=== PATIENT | female | born 1945 | race Caucasian/White ===

== ENCOUNTER 2018-01-17 19:18 | Inpatient (IN) | payer OTHER ==
[~2018-01-17] VITALS: Ht 152.4 cm; Wt 49.1 kg
[~2018-01-17 19:18] MED LIST: ATRIN INH; BECL0.3A INH; BRVIN NEB; CALC-342 PO; CLON0.5T3 PO; CRS20 PO; CYAN500T13 PO; DILT90CA PO; DOCU100C31 PO; DOXY100C2 PO; FERR325T5 PO; FSM70 PO; FURO-85 PO; ISOS30TA35 PO; LCTX PO; LRS10 PO; MGCS/ PO; NRN600 PO; NSNN50 NAE; ONDA4TAB46 PO; OXGN; PLMINSR25 NEB; PLV75 PO; POLY335025 PO; POTA10CA28 PO; PRED10TA PO; RANI300T PO; SUCR1TAB29 PO; ULT/50 PO
[2018-01-17] MEDS ORDERED: ALBUT/IPRATROP 3MG/0.5MG NEB 3 ML VIAL ONE (19:21)
[2018-01-17] MEDS ORDERED: ONDANSETRON INJ 2 MG/ML 2 ML VIAL ONE (19:22)
[2018-01-17] MEDS ORDERED: METHYLPREDNISOLONE 125 MG VIAL IV STA (19:27)
[2018-01-17] MEDS ORDERED: ALBUT/IPRATROP 3MG/0.5MG NEB 3 ML VIAL INH ONE ×2 (19:30→20:30)
--- NOTE | 2018-01-17 19:30 | EMERGENCY ROOM VISIT NOTE ---
History Report prepared by Julieta: Rashel Rodriges Under the Supervision of: Dr. Lokesh Whiting M.D. First contact with patient: 19:23 Chief Complaint: SHORTNESS OF BREATH Stated Complaint: SOB, COUGH History of Present Illness The patient is a 72 year old female who presents to the Emergency Room with complaints of worsening SOB and coughing that began 1 week ago. She complains of chest tightness. Per EMS she was given 1 DuoNeb with mild improvement and 4 Zofran because she was coughing so hard she started vomiting. She had a rescue pack of Doxycycline and Prednisone for her upper respiratory infection that began 1 week ago. This episode is similar to her previous COPD exacerbations. She denies abdominal pain. Source of History: patient, EMS, nursing staff Onset: 1 week ago Position: other (lungs) Symptom Intensity: pain rated as 0/10 Quality: other (SOB) Timing: worsening Modifying Factors (Relieving): other (minimal improvment with Duoneb and 4 Zofran) Associated Symptoms: + cough, + chest pain (tightness), + SOB, + nausea, No abdominal pain Review of Systems See HPI for pertinent positives & negatives. A total of 10 systems reviewed and were otherwise negative. Past Medical & Surgical Medical Problems: (1) Anxiety (2) Asymptomatic bilateral carotid artery stenosis (3) CAD (coronary artery disease) (4) COPD (chronic obstructive pulmonary disease) (5) GERD (gastroesophageal reflux disease) (6) History of Clostridium difficile (7) History of esophageal stricture (8) HTN (hypertension) (9) Hyperlipidemia (10) Osteoporosis (11) Peripheral vascular disease (12) Trigger finger Surgical Problems: (1) H/O colonoscopy (2) History of appendectomy (3) History of hemorrhoidectomy (4) History of hysterectomy with oophorectomy (5) History of knee surgery (6) History of left heart catheterization (7) Hx of esophagogastroduodenoscopy (8) S/p bilateral carotid endarterectomy (9) Status post dilatation of esophageal stricture (10) Status post insertion of iliac artery stent Family History Heart disease Social History Smoking Status: Current Every Day Smoker Alcohol Use: occasionally Drug Use: none Marital Status: single Housing Status: unknown Occupation Status: retired Current/Historical Medications Scheduled Alendronate Sodium (Alendronate Sodium), 70 MG PO WEDNESDAY Arformoterol Tartrate (Brovana 15MCG/2ML Soln), 2 ML NEB BID Beclomethasone Dipropionate (Qvar), 2 PUFFS INH BID Budesonide (Pulmicort Respules 0.25MG/2ML), 2 ML NEB BID Calcium Carbonate-Vitamin D (Calcium 600+D), 1 TAB PO BID Clopidogrel Bisulfate (Clopidogrel), 75 MG PO QAM Cyanocobalamin (Vitamin B12 500MCG), 500 MCG PO QPM Diltiazem Hcl (Diltiazem Hcl Er), 90 MG PO QAM Ferrous Sulfate (Ferrous Sulfate), 325 MG PO BID Gabapentin (Gabapentin), 600 MG PO TID Home O2 Therapy (Oxygen), 3 LITERS NA CONTINOUS Isosorbide Mononitrate Ext Rel (Imdur Ext Rel), 30 MG PO QAM Lactobacillus Acidophilus (Lactinex), 1 TAB PO BID Maalox/Diphen/Visc. [place]/Glyc (Magic Swizzle), 5 ML PO QID Mometasone Furoate (Nasal) (Nasonex), 2 SPRAYS MALATHI QAM Ranitidine Hcl (Zantac), 300 MG PO BID Rosuvastatin Calcium (Crestor), 20 MG PO QPM Sucralfate (Carafate), 1 GM PO HS Scheduled PRN Baclofen (Baclofen), 10 MG PO HS PRN for Muscle Pain Clonazepam (Klonopin), 0.5 MG PO BID PRN for Anxiety Docusate Sodium (Docusate Sodium), 100 MG PO BID PRN for Constipation Doxycycline Hyclate (Vibramycin), 100 MG PO BID PRN for COPD Rescue Kit Furosemide (Lasix), 20 MG PO 2XWK PRN for FLUID ACCUMULATION Ipratropium [place] (Atrovent Hfa), 2 PUFFS INH Q4H PRN for Wheezing Ondansetron Hcl (Zofran), 4 MG PO Q6 PRN for Nausea Polyethylene Glycol 3350 (Miralax), 17 GM PO DAILY PRN for Constipation Potassium Chloride (Micro-K Ext Rel), 10 MEQ PO 2XWK PRN for FLUID ACCUMULATION WITH LASIX Prednisone Tab (Prednisone), 40 MG PO UD PRN for COPD Rescue Pack Tramadol Hcl (Ultram), 50 MG PO Q6H PRN for Pain Allergies Coded Allergies: Corticosteroids (Verified Allergy, Unknown, swelling, 6/13/16) Cortisone (Verified Allergy, Unknown, swelling, 04/06/16) Metoclopramide (Verified Allergy, Unknown, UNKNOWN, 04/06/16) Salicylates (Verified Adverse Reaction, Unknown, caused bleeding, can take EC aspirin, 04/06/16) Physical Exam Vital Signs Date Time Temp Pulse Resp B/P (MAP) Pulse Ox O2 Delivery O2 Flow Rate FiO2 01/17/18 21:02 139/60 01/17/18 21:00 107 23 100 Nebulizer 01/17/18 20:33 157/78 01/17/18 20:31 91 01/17/18 20:30 92 22 99 Nebulizer 01/17/18 20:28 89 22 99 Nasal Cannula 5.0 01/17/18 20:03 137/103 01/17/18 19:51 97 26 95 Nasal Cannula 4.0 01/17/18 19:48 94 19 98 Nasal Cannula 4.0 01/17/18 19:31 131/97 01/17/18 19:28 166/91 01/17/18 19:19 98 Nasal Cannula 4.0 01/17/18 19:19 36.5 105 24 166/91 98 Nasal Cannula 4.0 01/17/18 19:19 98 Nasal Cannula 4.0 Physical Exam GENERAL: Patient is acutely ill appearing and in moderate distress. EYES: No scleral icterus, unremarkable pupils. ENT: Dry mucous membranes, no nasal congestion. NECK: No masses appreciated, no meningismus, trachea is midline. RESPIRATORY: Dyspneic, and tachypneic. Diffuse wheezing and crackles with left side worse than right. Clear to auscultation and equal bilaterally. No rhonchi. CARDIOVASCULAR: Regular rate and rhythm. No murmurs, rubs, gallops appreciated. GASTROINTESTINAL: Abdomen soft, nontender, no peritonitis. Bowel sounds positive. No masses appreciated. BACK: No midline tenderness, no CVA tenderness EXTREMITIES: Normal motion all extremities, no cyanosis, no edema. NEUROLOGIC: Alert and oriented, no acute motor or sensory deficits, no focal weakness, cranial nerves grossly intact. SKIN: Poor skin turgor. No rash, no jaundice, no diaphoresis. Medical Decision & Procedures ER Provider Diagnostic Interpretation: Radiology results and stated below per my review and radiologist interpretation: CHEST ONE VIEW PORTABLE CLINICAL HISTORY: Shortness of breath COMPARISON STUDY: 05/04/2015 FINDINGS: Underlying pulmonary emphysema is suspected. The heart is normal in size. There is an old right-sided rib fracture. As a calcified right upper lung zone granuloma. There is no failure. There is no focal pulmonary consolidation. There is minor basilar interstitial thickening.[ IMPRESSION: Emphysema. No evidence of focal pulmonary consolidation Electronically signed by: Christ Spencer M.D. 01/17/2018 7:53 PM Dictated Date/Time: 01/17/2018 7:52 PM Laboratory Results 01/17/18 19:35 Red Blood Count 4.09, Mean Corpuscular Volume 93.6, Mean Corpuscular Hemoglobin 31.3, Mean Corpuscular Hemoglobin Concent 33.4, Mean Platelet Volume 9.8, Neutrophils (%) (Auto) 81.0, Lymphocytes (%) (Auto) 13.3, Monocytes (%) (Auto) 5.0, Eosinophils (%) (Auto) 0.1, Basophils (%) (Auto) 0.4, Neutrophils # (Auto) 6.92, Lymphocytes # (Auto) 1.14, Monocytes # (Auto) 0.43, Eosinophils # (Auto) 0.01, Basophils # (Auto) 0.03 01/17/18 19:35 Test 01/17/18 19:35 01/17/18 19:45 01/17/18 21:20 White Blood Count 8.55 K/uL (4.8-10.8) Red Blood Count 4.09 M/uL (4.2-5.4) Hemoglobin 12.8 g/dL (12.0-16.0) Hematocrit 38.3 % (37-47) Mean Corpuscular Volume 93.6 fL (80-100) Mean Corpuscular Hemoglobin 31.3 pg (25-34) Mean Corpuscular Hemoglobin Concent 33.4 g/dl (32-36) Platelet Count 339 K/uL (130-400) Mean Platelet Volume 9.8 fL (7.4-10.4) Neutrophils (%) (Auto) 81.0 % Lymphocytes (%) (Auto) 13.3 % Monocytes (%) (Auto) 5.0 % Eosinophils (%) (Auto) 0.1 % Basophils (%) (Auto) 0.4 % Neutrophils # (Auto) 6.92 K/uL (1.4-6.5) Lymphocytes # (Auto) 1.14 K/uL (1.2-3.4) Monocytes # (Auto) 0.43 K/uL (0.11-0.59) Eosinophils # (Auto) 0.01 K/uL (0-0.5) Basophils # (Auto) 0.03 K/uL (0-0.2) RDW Standard Deviation 44.3 fL (36.4-46.3) RDW Coefficient of Variation 13.0 % (11.5-14.5) Immature Granulocyte % (Auto) 0.2 % Immature Granulocyte # (Auto) 0.02 K/uL (0.00-0.02) Anion Gap 12.0 mmol/L (3-11) Est Creatinine Clear Calc Drug Dose 59.0 ml/min Estimated GFR () 104.2 Estimated GFR (Non- 89.9 BUN/Creatinine Ratio 30.1 (10-20) Calcium Level 9.6 mg/dl (8.5-10.1) Magnesium Level 2.2 mg/dl (1.8-2.4) Influenza Type A (RT-PCR) Neg for Influ A (NEG) Influenza Type B (RT-PCR) Neg for Influ B (NEG) Laboratory results as reviewed by me. Medications Administered Medications (Trade) Dose Ordered Sig/Jameel Route Start Time Stop Time Status Last Admin Dose Admin Albuterol/ Ipratropium (Duoneb) 12 ml ONE ONCE INH 01/17/18 19:30 01/17/18 19:31 DC 01/17/18 19:51 12 ML Methylprednisolone Sodium Succinate (Solu-Medrol IV) 80 mg NOW STAT IV 01/17/18 19:27 01/17/18 19:28 DC 01/17/18 19:41 80 MG Lorazepam (Ativan Inj) 0.5 mg NOW STAT IV 01/17/18 19:58 01/17/18 19:59 DC 01/17/18 20:03 0.5 MG Albuterol/ Ipratropium (Duoneb) 12 ml ONE ONCE INH 01/17/18 20:30 01/17/18 20:31 DC 01/17/18 20:28 12 ML Doxycycline Hyclate 100 mg/ Dextrose 110 ml @ 50 mls/hr NOW STAT IV 01/17/18 20:36 3/26/18 22:47 01/17/18 21:10 50 MLS/HR ECG Per My Interpretation Indication: SOB/dyspnea Rate (beats per minute): 98 Rhythm: normal sinus Findings: PAC, prolonged QT (QTc of 508), other (Nonspecific ST abnormality throughout without STEMI) ED Course 1922: The patient was evaluated in room B12B. A complete history and physical exam was performed. 1957: Patient coughed hard and vomited. She stated that she is very anxious. Ativan was ordered. 2036: I checked on the patient and she is no longer anxious or vomiting. Loud diffuse expiratory wheezing is present. 2041: Discussed the patient's case with Dr. Seth Jean. The patient will be evaluated for further treatment and disposition. 2044: Upon reevaluation, the patient is resting comfortably. Discussed results and treatment plan with the patient. She verbalized understanding and agreement with the treatment plan. The patient will be evaluated for further management. Medical Decision Differential: Infectious, Reactive Airway Disease, Pneumonia, Pneumothorax, COPD , CHF, ACS, Pulmonary Embolism, MSK, GI, Dissection, amongst other etiologies entertained. 72 yr old COPD patient arrives in acute respiratory distress coughing so hard periodically vomiting. She is moving minimal air, wheezing and severely dyspneic. She is also acutely anxious and very distressed. With hour neb still quite anxious and worked up thus given small dose IV ativan with vast improvement in anxiety and still breathing well. Given further neb and wheezing becoming much louder as airways opened. Able to avoid BiPAP at this time given improvement after prolonged neb. No clear infiltrate on CXR, no fever, no wbc elevation thus will hold on blood cultures and treat as COPD exacerbation. Was given IV steroids for acute respiratory issues. Suspect that Trop bump secondary to respiratory rather than ACS. No leg swelling and I feel risk of PE lower than COPD exacerbation thus hold on CT PE study at this time as sating well and responding to treatment. Medication Reconcilliation Current Medication List: was personally reviewed by me Blood Pressure Screening Patient's blood pressure: Elevated blood pressure Blood pressure disposition: Elevated BP felt to be situational Consults Time Called: 2039 Consulting Physician: Dr. Seth Jean Returned Call: 2041 Discussed the patient's case. The patient will be evaluated for further treatment and disposition. Impression Primary Impression: Acute exacerbation of chronic obstructive pulmonary disease (COPD) Additional Impression: Elevated troponin Critical Care I have personally spent greater than 30 minutes of critical care time in the direct management of this patient. This was a life/limb threatening event. This includes time spent evaluating patient, direct bedside care, chart review, placing orders, interpretation of diagnostic studies, discussion with consultants, patient, and family members, as well as other required patient management activities. This 30 minutes is in excess of all separately billable procedures. Scribe Attestation The scribe's documentation has been prepared under my direction and personally reviewed by me in its entirety. I confirm that the note above accurately reflects all work, treatment, procedures, and medical decision making performed by me. Departure Information Referrals Nancy Mcdonald D.O. (PCP) Patient Instructions My [facility] Problem Qualifiers
[2018-01-17 19:46] LABS: BASO % 0.4 %; BASO ABS # 0.03 K/uL (0-0.2); EOS % 0.1 %; EOS ABS # 0.01 K/uL (0-0.5); HEMATOCRIT 38.3 % (37-47); HEMOGLOBIN 12.8 g/dL (12.0-16.0); IG# 0.02 K/uL (0.00-0.02); LYMPH % 13.3 %; LYMPH ABS # 1.14 K/uL (1.2-3.4); MEAN CELL VOLUME 93.6 fL (80-100); MEAN CORPUSCULAR HEMOGLOBIN 31.3 pg (25-34); MEAN CORPUSCULAR HGB CONC 33.4 g/dl (32-36); MEAN PLATELET VOLUME 9.8 fL (7.4-10.4); MONO ABS # 0.43 K/uL (0.11-0.59); NEUT ABS # 6.92 K/uL (1.4-6.5); PLATELET COUNT 339 K/uL (130-400); RED CELL DISTRIBUTION WIDTH SD 44.3 fL (36.4-46.3); WHITE BLOOD COUNT 8.55 K/uL (4.8-10.8)
[2018-01-17 19:51] VITALS: PULSE 97; O2SAT 95
--- NOTE | 2018-01-17 19:54 | DIAGNOSTIC IMAGING REPORT ---
CHEST ONE VIEW PORTABLE CLINICAL HISTORY: Shortness of breath COMPARISON STUDY: 05/04/2015 FINDINGS: Underlying pulmonary emphysema is suspected. The heart is normal in size. There is an old right-sided rib fracture. As a calcified right upper lung zone granuloma. There is no failure. There is no focal pulmonary consolidation. There is minor basilar interstitial thickening.[ IMPRESSION: Emphysema. No evidence of focal pulmonary consolidation Electronically signed by: Christ Spencer M.D. 01/17/2018 7:53 PM Dictated Date/Time: 01/17/2018 7:52 PM
[2018-01-17] MEDS ORDERED: LORAZEPAM 2 MG/ML 1 ML VIAL IV STA (19:58)
[2018-01-17] MEDS ORDERED: LORAZEPAM 2 MG/ML 1 ML VIAL ONE (20:00)
[2018-01-17 20:15] LABS: CALCIUM 9.6 mg/dl (8.5-10.1); CREATININE 0.61 mg/dl (0.60-1.20); POTASSIUM 3.4 mmol/L (3.5-5.1)
[2018-01-17 20:28] VITALS: PULSE 89; O2SAT 99
[2018-01-17] MEDS ORDERED: DOXYCYCLINE IV 100 MG in DEXTROSE 5% 100ML 100 ML IV STA (20:36)
[2018-01-17 20:47] LABS: INFLUENZA A PCR Neg for Influ A (NEG); INFLUENZA B PCR Neg for Influ B (NEG)
[2018-01-17] MEDS ORDERED: BACLOFEN 10 MG TAB PO PRN (21:15)
[2018-01-17] MEDS ORDERED: DOCUSATE SODIUM 100 MG CAP PO PRN (21:15)
--- NOTE | 2018-01-17 21:26 | History and Physical ---
History & Physical Date & Time of Service: Jan 17, 2018 at 21:26 Chief Complaint: Sob, Cough Primary Care Physician: Nancy Mcdonald D.O. History of Present Illness Source: patient History as per patient, chart review, and family member daughter Katrina [phone] This is a 72 year old F who has history of COPD and has been in recent past on doxycycline and prednisone for COPD symptoms and have more shortness of breath for 3 to 4 days. Patient also reports midsternal chest pain symptoms 3 days ago. She cannot give a good history in the ED as she was receiving nebulizer treatment and shaking of upper extremities. Patient was able to cooperate on physical exam such as sitting up for lung auscultation and speaks in full sentences although sometimes slow with her speech and response to questions. Is oriented to herself, time, and place - appropriately answers questions about her date and home address. Besides breathing and chest discomfort, patient denies other symptoms. Further medical history corroborated with patient 's daughter on the phone. Patient's daughter reports that patient has reactions to steroids such as exacerbating the upper extremity tremors however has needed to take oral steroids before because of COPD treatment. Patient's daughter reports that patient's status is full code status. No reported history of prior intubations. Have also explained to patient and patient's family member that there are elevations in troponin of 0.066 but EKG has been read in the ED as unlikely to be due to myocardial infarction. Patient is unclear whether chest discomfort is pleuritic chest pain or not. Patient's family appears to report some history of GI bleed in the past vs hemorrhoids. Have explained to the patient and patient's family that the main treatment is for respiratory status however due to chest discomfort complaints and mildly elevated troponin, will monitor patient and symptoms on telemetry and trend EKG and troponins for now without starting heparin drip anticoagulation Past Medical/Surgical History Medical Problems: (1) Anemia (2) Anxiety (3) Arthritis of left knee (4) Asymptomatic bilateral carotid artery stenosis (5) CAD (coronary artery disease) (6) COPD (chronic obstructive pulmonary disease) (7) Dysphagia (8) GERD (gastroesophageal reflux disease) (9) GI bleed (10) History of Clostridium difficile (11) History of esophageal stricture (12) HTN (hypertension) (13) Hyperlipidemia (14) Intractable nausea and vomiting (15) Leg pain, left (16) Osteoporosis (17) Peripheral vascular disease (18) Trigger finger (19) Weakness (20) Weakness Surgical Problems: (1) H/O colonoscopy (2) History of appendectomy (3) History of hemorrhoidectomy (4) History of hysterectomy with oophorectomy (5) History of knee surgery (6) History of left heart catheterization (7) Hx of esophagogastroduodenoscopy (8) S/p bilateral carotid endarterectomy (9) Status post dilatation of esophageal stricture (10) Status post insertion of iliac artery stent Family History Heart disease Social History Smoking Status: Current Every Day Smoker Drug Use: none Marital Status: single Housing status: lives alone Occupational Status: retired Immunizations History of Influenza Vaccine: Yes Influenza Vaccine Date: Jul 26, 2009 History of Tetanus Vaccine?: Unknown History of Pneumococcal: No Pneumococcal Date: Nov 26, 2008 History of Hepatitis B Vaccine: Unknown Allergies Coded Allergies: Corticosteroids (Verified Allergy, Unknown, swelling, 04/06/16) Cortisone (Verified Allergy, Unknown, swelling, 04/06/16) Metoclopramide (Verified Allergy, Unknown, UNKNOWN, 04/06/16) Salicylates (Verified Adverse Reaction, Unknown, caused bleeding, can take EC aspirin, 04/06/16) Home Medications Scheduled Alendronate Sodium (Alendronate Sodium), 70 MG PO WEDNESDAY Arformoterol Tartrate (Brovana 15MCG/2ML Soln), 2 ML NEB BID Beclomethasone Dipropionate (Qvar), 2 PUFFS INH BID Budesonide (Pulmicort Respules 0.25MG/2ML), 2 ML NEB BID Calcium Carbonate-Vitamin D (Calcium 600+D), 1 TAB PO BID Clopidogrel Bisulfate (Clopidogrel), 75 MG PO QAM Cyanocobalamin (Vitamin B12 500MCG), 500 MCG PO QPM Diltiazem Hcl (Diltiazem Hcl Er), 90 MG PO QAM Ferrous Sulfate (Ferrous Sulfate), 325 MG PO BID Gabapentin (Gabapentin), 600 MG PO TID Home O2 Therapy (Oxygen), 3 LITERS NA CONTINOUS Isosorbide Mononitrate Ext Rel (Imdur Ext Rel), 30 MG PO QAM Lactobacillus Acidophilus (Lactinex), 1 TAB PO BID Maalox/Diphen/Visc. [place]/Glyc (Magic Swizzle), 5 ML PO QID Mometasone Furoate (Nasal) (Nasonex), 2 SPRAYS MALATHI QAM Ranitidine Hcl (Zantac), 300 MG PO BID Rosuvastatin Calcium (Crestor), 20 MG PO QPM Sucralfate (Carafate), 1 GM PO HS Scheduled PRN Baclofen (Baclofen), 10 MG PO HS PRN for Muscle Pain Clonazepam (Klonopin), 0.5 MG PO BID PRN for Anxiety Docusate Sodium (Docusate Sodium), 100 MG PO BID PRN for Constipation Doxycycline Hyclate (Vibramycin), 100 MG PO BID PRN for COPD Rescue Kit Furosemide (Lasix), 20 MG PO 2XWK PRN for FLUID ACCUMULATION Ipratropium [place] (Atrovent Hfa), 2 PUFFS INH Q4H PRN for Wheezing Ondansetron Hcl (Zofran), 4 MG PO Q6 PRN for Nausea Polyethylene Glycol 3350 (Miralax), 17 GM PO DAILY PRN for Constipation Potassium Chloride (Micro-K Ext Rel), 10 MEQ PO 2XWK PRN for FLUID ACCUMULATION WITH LASIX Prednisone Tab (Prednisone), 40 MG PO UD PRN for COPD Rescue Pack Tramadol Hcl (Ultram), 50 MG PO Q6H PRN for Pain Review of Systems Constitutional: No fever Eyes: No eye pain Respiratory: + shortness of breath Cardiovascular: + chest pain Abdomen: No pain, No nausea, No vomiting Musculoskeletal: No joint pain, No muscle pain, No swelling, No calf pain Genitourinary - Female: No dysuria Neurologic: No numbness/tingling Integumentary: No rash, No itch Physical Exam Vital Signs Date Time Temp Pulse Resp B/P (MAP) Pulse Ox O2 Delivery O2 Flow Rate FiO2 01/17/18 21:02 139/60 01/17/18 21:00 107 23 100 Nebulizer 01/17/18 20:33 157/78 01/17/18 20:31 91 01/17/18 20:30 92 22 99 Nebulizer 01/17/18 20:28 89 22 99 Nasal Cannula 5.0 01/17/18 20:03 137/103 01/17/18 19:51 97 26 95 Nasal Cannula 4.0 01/17/18 19:48 94 19 98 Nasal Cannula 4.0 01/17/18 19:31 131/97 01/17/18 19:28 166/91 01/17/18 19:19 98 Nasal Cannula 4.0 01/17/18 19:19 36.5 105 24 166/91 98 Nasal Cannula 4.0 01/17/18 19:19 98 Nasal Cannula 4.0 General Appearance: + mild distress Head: normocephalic, atraumatic Eyes: normal inspection, EOMI, sclerae normal ENT: normal ENT inspection, hearing grossly normal Neck: supple, no adenopathy, no JVD, trachea midline Respiratory/Chest: chest non-tender, lungs clear, + pertinent finding (fair air entry, no expiratory wheezes while on nebulizer treatment) Cardiovascular: no edema, no JVD, no murmur, normal peripheral pulses, + tachycardia Abdomen/GI: normal bowel sounds, non tender, soft, no organomegaly, no pulsatile mass Back: no CVA tenderness, no muscle spasm, normal range of motion, + pertinent finding (some kyphosis of spinal curvature) Extremities/Musculoskelatal: normal inspection, no calf tenderness, no pedal edema, normal range of motion, non-tender Neurologic/Psych: faro dealer II-XII nml as tested, no motor/sensory deficits, alert, oriented x 3 Skin: normal color, warm/dry, no rash Diagnostics Laboratory Results Results Past 24 Hours Test 01/17/18 19:35 01/17/18 19:45 01/17/18 21:20 Range/Units White Blood Count 8.55 4.8-10.8 K/uL Red Blood Count 4.09 4.2-5.4 M/uL Hemoglobin 12.8 12.0-16.0 g/dL Hematocrit 38.3 37-47 % Mean Corpuscular Volume 93.6 80-100 fL Mean Corpuscular Hemoglobin 31.3 25-34 pg Mean Corpuscular Hemoglobin Concent 33.4 32-36 g/dl Platelet Count 339 130-400 K/uL Mean Platelet Volume 9.8 7.4-10.4 fL Neutrophils (%) (Auto) 81.0 % Lymphocytes (%) (Auto) 13.3 % Monocytes (%) (Auto) 5.0 % Eosinophils (%) (Auto) 0.1 % Basophils (%) (Auto) 0.4 % Neutrophils # (Auto) 6.92 1.4-6.5 K/uL Lymphocytes # (Auto) 1.14 1.2-3.4 K/uL Monocytes # (Auto) 0.43 0.11-0.59 K/uL Eosinophils # (Auto) 0.01 0-0.5 K/uL Basophils # (Auto) 0.03 0-0.2 K/uL RDW Standard Deviation 44.3 36.4-46.3 fL RDW Coefficient of Variation 13.0 11.5-14.5 % Immature Granulocyte % (Auto) 0.2 % Immature Granulocyte # (Auto) 0.02 0.00-0.02 K/uL Sodium Level 137 136-145 mmol/L Potassium Level 3.4 3.5-5.1 mmol/L Chloride Level 103 98-107 mmol/L Carbon Dioxide Level 22 21-32 mmol/L Anion Gap 12.0 3-11 mmol/L Blood Urea Nitrogen 18 7-18 mg/dl Creatinine 0.61 0.60-1.20 mg/dl Est Creatinine Clear Calc Drug Dose 59.0 ml/min Estimated GFR () 104.2 Estimated GFR (Non- 89.9 BUN/Creatinine Ratio 30.1 10-20 Random Glucose 113 70-99 mg/dl Calcium Level 9.6 8.5-10.1 mg/dl Magnesium Level 2.2 1.8-2.4 mg/dl Troponin I 0.066 0-0.045 ng/ml Influenza Type A (RT-PCR) Neg for Influ A NEG Influenza Type B (RT-PCR) Neg for Influ B NEG Impression Assessment and Plan COPD exacerbation -admission CXR: FINDINGS: Underlying pulmonary emphysema is suspected. The heart is normal in size. There is an old right-sided rib fracture. As a calcified right upper lung zone granuloma. There is no failure. There is no focal pulmonary consolidation. There is minor basilar interstitial thickening.[ IMPRESSION: Emphysema. No evidence of focal pulmonary consolidation -in the ED patient received IV docyxlcine and IV solumedrol x 1 -patient has reported allergy reaction to steroids and patient's daughter believes that the steroids cause worsening of upper extremity tremors -alternatively patient could be having tremors from albuterol from albuterol/ ipratropium nebulizer treatments -will switch to Xopenex to reduce tremors, will continue IV steroids as daily medication to minimize tremors, will hold home steroid inhalers for now while on IV solumedrol -will continue Doxycycline BID -is flu negative, obtain sputum culture and blood cultures -request pulmonary consult for recommendations to treat patient with recurrent COPD exacerbations Cardiac: elevated troponin of 0.066 -admission EKG: normal sinus, premature atrial contractions, prolonged QT (QTc of 508) -trend troponin and EKG -unclear whether chest pain is cardiac in origin or pleuritic chest pain, elevated troponins may be from type 2 demand ischemia vs myocardial infarction -will hold off heparin drip for now, reconsider anticoagulation by second troponin results and clinical symptoms -continue home dose plavix -echocardiogram in 12/2013 with normal EF and diastolic grade I dysfunction, repeat echocardiogram on this admission -currently euvolemic, hold Lasix Anemia -type and screen, trend CBC mild hypokalemia -serum potassium 3.4, 10 meq IV potassium x 3 doses ordered HTN -continue home dose diltiazem, isosorbide DVT ppx: SCD Code Status Full Code Resuscitation Status VTE Prophylaxis Will order VTE Prophylaxis: Yes
[2018-01-17] MEDS ORDERED: DEXL60CA4 PO (22:39)
[2018-01-17] MEDS ORDERED: VNTHFA/IN INH (22:39)
[2018-01-17 23:15] VITALS: BP 106/69; PULSE 122; TEMP 37; O2SAT 95; Ht 152.4 cm; Wt 49.1 kg
[2018-01-17] MEDS: POTASSIUM CHLR 10 MEQ / WTR 10 MEQ in PREMIXED WATER 100 ML IV SCH (23:37)
[2018-01-17 23:59] VITALS: BP 128/67; PULSE 118; TEMP 36.5; O2SAT 94
[2018-01-18] VITALS (12 sets, daily range): BP systolic 97–143; BP diastolic 50–75; PULSE 61–116; TEMP 36.5–37.1; O2SAT 93–97
[2018-01-18] MEDS ORDERED: GUAIFENESIN SUGAR FREE 100 MG/5 ML UDC PO STA (00:20)
[2018-01-18] MEDS: POTASSIUM CHLR 10 MEQ / WTR 10 MEQ in PREMIXED WATER 100 ML IV SCH ×2 (00:43→01:51)
[2018-01-18] MEDS ORDERED: METOPROLOL TARTRATE 1 MG/ML VIAL IV STA (02:12)
[2018-01-18] MEDS ORDERED: SODIUM CHLORIDE 0.9% 250ML 250 ML IV ONE (02:15)
[2018-01-18 02:37] LABS: PTT PATIENT 23.6 SECONDS (21.0-31.0)
[2018-01-18] MEDS ORDERED: LEVALBUTEROL 1.25MG/3ML NEB INH SCH (03:00)
[2018-01-18] MEDS ORDERED: PERFLUTREN LIPID MICROSPHERE (DEFINITY) IV ONE (07:37)
[2018-01-18 07:40] LABS: BASO % 0.2 %; BASO ABS # 0.01 K/uL (0-0.2); HEMATOCRIT 34.7 % (37-47); HEMOGLOBIN 11.5 g/dL (12.0-16.0); IG# 0.01 K/uL (0.00-0.02); LYMPH % 20.7 %; LYMPH ABS # 1.07 K/uL (1.2-3.4); MEAN CELL VOLUME 93.8 fL (80-100); MEAN CORPUSCULAR HEMOGLOBIN 31.1 pg (25-34); MEAN CORPUSCULAR HGB CONC 33.1 g/dl (32-36); MEAN PLATELET VOLUME 10.1 fL (7.4-10.4); MONO % 11.6 %; NEUT % 67.3 %; NEUT ABS # 3.49 K/uL (1.4-6.5); PLATELET COUNT 297 K/uL (130-400); RED CELL DISTRIBUTION WIDTH SD 44.5 fL (36.4-46.3); WHITE BLOOD COUNT 5.18 K/uL (4.8-10.8)
[2018-01-18] MEDS: METHYLPREDNISOLONE IV 40 MG in SYRINGE 0 ML IV SCH (08:04)
[2018-01-18] MEDS: GUAIFENESIN SUGAR FREE 100 MG/5 ML UDC PO PRN ×2 (08:04→20:26)
[2018-01-18] MEDS: DOXYCYCLINE HYCLATE 100 MG CAP PO SCH ×2 (08:05→20:25)
[2018-01-18] MEDS: GABAPENTIN 600 MG TAB PO SCH ×3 (08:05→20:25)
[2018-01-18] MEDS: ISOSORBIDE MONONITRATE 30 MG TABCR PO SCH (08:05)
[2018-01-18] MEDS: CLOPIDOGREL BISULFATE 75 MG TAB PO SCH (08:05)
[2018-01-18 08:07] LABS: ALBUMIN 3.7 gm/dl (3.4-5.0); CALCIUM 8.6 mg/dl (8.5-10.1); CREATININE 0.54 mg/dl (0.60-1.20); POTASSIUM 3.7 mmol/L (3.5-5.1)
[2018-01-18 08:12] LABS: TOTAL PROTEIN 6.9 gm/dl (6.4-8.2)
--- NOTE | 2018-01-18 09:53 | PULMONARY CONSULTATION ---
DATE OF CONSULTATION: 01/18/2018 TIME: 08:55 a.m. REPORT OF CONSULTATION: The patient was seen in room 284. She is a 72-year-old female who has a longstanding history of COPD. She became ill approximately 1 week prior to admission. She began having increasing cough, increasing shortness of breath and episodes of vomiting precipitated by coughing she states. Her mucus, she describes as only white. She did expectorate 2 times when I was with her during this evaluation. It appeared to be just saliva. The patient is not the best historian. She was feeling hot and cold, though she did not check her temperature at home. She estimates that she has vomited 3 or 4 times. This is always precipitated by coughing. She has been short of breath even at rest. Typically, she is short of breath with minimal exertion, but not at rest. She started taking her rescue kit of prednisone and doxycycline approximately 4 days ago. It did not seem to improve things. This prompted her coming to the Emergency Room later in the day yesterday. She states she does not feel too much better this morning. She has had marked difficulty sleeping. She states last night she only slept for about 1 hour between 06:00 a.m. and 07:00 a.m. The patient is noted to have marked tremors. She states she has these, but it has been worse. At home, she is listed as taking Brovana. The patient herself does not seem to know the names of her medicines. She states she does it twice a day. She has another nebulizer that she takes just once a day at noon. I am assuming that is budesonide. She is also listed as taking Qvar at home, but she did not seem to be sure about that. For rescue, she reportedly uses Atrovent HFA. I could not determine with certainty if she has any rescue inhaler with either albuterol or levalbuterol. The patient has a longstanding history of smoking. Most of her life, she smoked 1 pack per day, but she states that she is down to about a quarter of a pack. She states that she knows she must have the oxygen off and be far away from it when she smokes. She gives no indication that she thinks she could quit smoking. Her appetite has been significantly decreased. She states she has not eaten hardly anything. She admits that she found it hard to even chew food for the last few days. Her energy level is low. The patient lives with one of her children and their spouse. She states there are a cat and a dog present. Her occupational history is that for 30 years, she worked at an [employer]. PAST SURGICAL HISTORY: 1. Appendectomy. 2. Hemorrhoidectomy. 3. Hysterectomy. 4. Knee surgery. 5. Cardiac catheterization. 6. Carotid endarterectomy, right and left. 7. Iliac artery stent. 8. Surgery for contractures of her fingers. PAST MEDICAL HISTORY: 1. COPD. 2. Carotid stenosis. 3. Coronary artery disease. 4. Hypertension. 5. Hyperlipidemia. 6. Anxiety. 7. Reflux. 8. Esophageal stricture. 9. Prior C. diff infection. 10. Osteoporosis. 11. Peripheral vascular disease. 12. Childbirth x1. SOCIAL HISTORY: 1/4 pack per day currently, but previously 1 pack per day for more than 50 years. ETOH -- 2 beers per day. ALLERGIES: METOCLOPRAMIDE. FAMILY HISTORY: Positive for heart disease. REVIEW OF SYSTEMS: In addition to the above-mentioned complaints, the patient states that she has had diarrhea on 1 day. She denies chest pain. Denies syncope or near syncope. Denies myalgias or arthralgias. Review of systems is otherwise negative. Ten systems reviewed. PHYSICAL EXAMINATION: GENERAL: The patient is a 72-year-old female who was cooperative and alert. She was extremely tremorous. VITAL SIGNS: Temperature was 36.5. She was oriented. Heart rate was 92 per minute. The rhythm is regular. Blood pressure 143/65. HEENT: Pupils were reactive to light. She appears to have had prior cataract surgery. Nares were clear. Nasal cannula oxygen was in place. Mouth exam showed an absence of teeth. She indicates she does have dentures. NECK: Revealed scars on each side from prior carotid endarterectomy. No lymphadenopathy was noted. LUNGS: Auscultation of the lung saucedo revealed diffusely diminished breath sounds. There was marked prolongation to the expiratory phase of respiration and there was end-expiratory wheezing. Saturation was 93% on 3.5 liters at the time of my exam. Respiratory rate was 18 and it was not labored. ABDOMEN: Soft. Bowel sounds were present. There was no tenderness to palpation, masses or organomegaly. EXTREMITIES: Showed no cyanosis, clubbing or edema. The patient's chest x-ray showed hyperinflation and emphysema. There was an old right-sided rib fracture. A small granuloma is seen in the right upper lung zone. LABORATORY DATA: White count is 5.18. Hemoglobin 11.5. Platelets 297,000. Differential showed 67.3 neutrophils with 20.7 lymphs and 11.6 monocytes. Coags were normal. Troponins have been elevated with the highest being 0.066. Sodium 136, potassium 3.7, chloride 104, and bicarb 25. BUN 19 with a creatinine of 0.54. Blood sugar was 103. Flu test was negative. Blood cultures are pending. IMPRESSIONS: 1. Chronic obstructive pulmonary disease with exacerbation. 2. Emphysema. 3. History of esophageal stricture -- rule out recurrence. 4. Granuloma of the right lung. 5. Anxiety. 6. Tremors. COMMENTS AND RECOMMENDATIONS: The patient appears to be receiving neb treatments only on a p.r.n. basis. I believe she would do better if she would receive them on a regular basis. Because of the tremors, we will give levalbuterol 0.63 and combined that with ipratropium. She is on methylprednisolone 40 mg q. 24 hours. She has had difficulty swallowing and she seems to be expectorating saliva. The possibility of recurrence of her esophageal stricture exists. This will need to be followed serially and perhaps even evaluated by GI if it becomes a definite problem. She is on doxycycline. There is no definite evidence of pneumonia on x-ray and even her sputum does not seem to be discolored. I have no problem with it for now, however. Thank you for asking me to assist in her care.
--- NOTE | 2018-01-18 10:15 | ECHOCARDIOGRAM REPORT ---
*NOTICE TO RECEIVING REPUBLICAN AGENCY This information is strictly Confidential and protected under [place] law. [place] law prohibits you from making any further disclosure of this information unless further disclosure is expressly permitted by the written consent of the person to whom it pertains or is authorized by law. A general authorization for the release of medical or other information is not sufficient for this purpose. Hospital accepts no responsibility if the information is made available to any other person, INCLUDING THE PATIENT. Interpretation Summary * Name: MARLENA PHILLIPS Study Date: 01/18/2018 06:51 AM BP: 134/75 mmHg * Patient Location: [facility]\S\N284\S\1 HR: 93 * : 1945 (M/d/yyy) Gender: Female Height: 60 in * Age: 72 yrs Ethnicity: [place] Weight: 108 lb * Ordering Physician: Seth Jean * Referring Physician: Self, Referred * Performed By: Sera York RDCS * * Reason For Study: Chest Pain * BSA: 1.4 m2 * -- Conclusions -- * Small, underfilled LV chamber with normal wall thickness. * Hyperdynamic LV systolic function, EF >70%. * No segmental left ventricular wall motion abnormalities are noted. * Grade I diastolic dysfunction. * No significant valvular pathology. * Small, loculated anterior pericardial effusion without hemodynamic significance. Procedure Details * A complete two-dimensional transthoracic echocardiogram was performed (2D, M-mode, Doppler and color flow Doppler). * The study was technically difficult. * The study was technically difficult, but visualization was adequate with the administration of Definity ultrasound contrast. * There were technical limitations due to patient'sPoor acoustic windows secondary to severe lung disease. * A contrast injection of Definity was performed to improve assessment of LV function. * Contrast was injected into an intravenous site in the left arm. * One vial of Definity ultrasound contrast was diluted in normal saline to a total volume of 10 ml. A total of '2' ml of solution was administered during imaging. * Lot # [id number] of Definity utilized for procedure. * Expiration date 1Apr19. * The attending nurse who injected the contrast agent was Cherise Suarez RN. Left Ventricle * The left ventricular cavity is small. * There is normal left ventricular wall thickness. * Ejection Fraction = >70 %. * The left ventricle is hyperdynamic. * No segmental left ventricular wall motion abnormalities are noted. * The left ventricular wall motion is normal. Right Ventricle * The right ventricular cavity size is normal (basal dimension <4.2 cm in right ventricular apical 4-chamber view). * The right ventricular systolic function is normal as assessed by tricuspid annular plane systolic excursion (TAPSE) (normal >1.5 cm). Atria * The left atrial size is normal. * Right atrial size is normal. * No ASD detected; PFO is not assessed. Mitral Valve * The mitral valve is normal in structure and function. Tricuspid Valve * The tricuspid valve is normal in structure and function. Aortic Valve * The aortic valve is not well visualized. * No hemodynamically significant valvular aortic stenosis. * There is no significant aortic regurgitation. Pulmonic Valve * The pulmonary valve is not well seen, but the Doppler examination is normal without significant regurgitation or stenosis. Great Vessels * The aortic root is normal size. Pericardium/Pleural * Small pericardial effusion. * A loculated pericardial effusion is noted. Left Ventricular Diastolic Function * Grade I diastolic dysfunction, (abnormal relaxation pattern). MMode 2D Measurements and Calculations IVSd 0.80 cm IVSs 1.2 cm LVIDd 4.0 cm LVIDs 2.7 cm LVPWd 0.84 cm LVPWs 1.2 cm IVS/LVPW 0.95 FS 32.1 % EDV(Teich) 69.7 ml ESV(Teich) 27.3 ml EF(Teich) 60.8 % EDV(cubed) 63.6 ml ESV(cubed) 19.9 ml EF(cubed) 68.7 % % IVS thick 48.1 % % LVPW thick 41.4 % LV mass(C)d 96.7 grams LV mass(C)dI 67.3 grams/m\S\2 LV mass(C)s 93.8 grams LV mass(C)sI 65.3 grams/m\S\2 SV(Teich) 42.4 ml SI(Teich) 29.5 ml/m\S\2 SV(cubed) 43.7 ml SI(cubed) 30.4 ml/m\S\2 Ao root diam 3.3 cm Ao root area 8.4 cm\S\2 ACS 1.6 cm LA dimension 2.1 cm LA/Ao 0.64 LVAd ap4 23.4 cm\S\2 LVLd ap4 7.5 cm EDV(MOD-sp4) 59.7 ml EDV(sp4-el) 62.1 ml LVAs ap4 13.5 cm\S\2 LVLs ap4 6.7 cm ESV(MOD-sp4) 22.1 ml ESV(sp4-el) 23.1 ml EF(MOD-sp4) 63.0 % EF(sp4-el) 62.8 % LVAd ap2 20.3 cm\S\2 LVLd ap2 7.5 cm EDV(MOD-sp2) 45.5 ml EDV(sp2-el) 46.6 ml LVAs ap2 10.3 cm\S\2 LVLs ap2 6.4 cm ESV(MOD-sp2) 14.3 ml ESV(sp2-el) 14.1 ml EF(MOD-sp2) 68.6 % EF(sp2-el) 69.6 % LVLd %diff 0.32 % EDV(MOD-bp) 52.0 ml LVLs %diff -4.46 % ESV(MOD-bp) 17.7 ml EF(MOD-bp) 66.0 % SV(MOD-sp4) 37.6 ml SI(MOD-sp4) 26.2 ml/m\S\2 SV(MOD-sp2) 31.2 ml SI(MOD-sp2) 21.7 ml/m\S\2 SV(MOD-bp) 34.3 ml SI(MOD-bp) 23.9 ml/m\S\2 SV(sp4-el) 39.0 ml SI(sp4-el) 27.1 ml/m\S\2 SV(sp2-el) 32.4 ml SI(sp2-el) 22.6 ml/m\S\2 Doppler Measurements and Calculations MV E max clover 68.9 cm/sec MV A max clover 123.1 cm/sec MV E/A 0.56 MV dec time 0.27 sec Ao V2 max 123.5 cm/sec Ao max PG 6.1 mmHg Ao max PG (full) 1.8 mmHg LV V1 max PG 4.3 mmHg LV V1 max 103.9 cm/sec PA V2 max 148.0 cm/sec PA max PG 8.8 mmHg
[2018-01-18] MEDS: IPRATROPIUM BROMIDE NEB SOLN 0.02% 2.5 ML VIAL INH SCH ×2 (14:04→19:38)
[2018-01-18] MEDS: LEVALBUTEROL 0.63MG/3 ML NEB INH SCH ×2 (14:05→19:38)
[2018-01-18] MEDS ORDERED: LEVALBUTEROL/IPRATROPIUM NEB INH SCH (15:00)
--- NOTE | 2018-01-18 16:25 | Progress Note ---
Internal Med Progress Note Date of Service: Jan 18, 2018. Provider Documentation: SUBJECTIVE: resting comfortably still has sob and cough but getting better has hx of oesophageal stricture in the past and used to get dilated every two years and last one was about 3 years ago coughing up saliva no chest pain or abdominal pain no nausea afebrile OBJECTIVE: Vital Signs-as noted below Exam: General-alert and oriented. ENT-Normal hearing Neck-no neck masses Lungs-diminished b/l breath sounds , mild wheezing no crackles present Heart-S1 and S2 heard regular rate and rhythm no murmurs present Abdomen-Soft bowel sounds present non tender no distension Extremities-no edema no erythema Neuro-alert and awake moves extremities Lab data as noted below. ASSESSMENT & PLAN: COPD exacerbation CXR no infiltrates/consolidation currently on solumedrol 40mg daily, nebs atc and prn and doxycyline appreciate pulmonary inputs daughter was worried about tremors on steroids or nebs- will monitor elevated troponin of 0.066 On admission EKG: normal sinus, premature atrial contractions, prolonged QT ( QTc of 508) Most;y nstemi from demand ischemia from above troponin trending down asymptomatic echo unremarkable except for small pericardial effusion Hx of Anemia will f/u labs. mild hypokalemia replace HTN on diltiazem, isosorbide will monitor DVT ppx: SCD Code Status Full Code DISPOSITION to be determined Vital Signs: Date Time Temp Pulse Resp B/P (MAP) Pulse Ox O2 Delivery O2 Flow Rate FiO2 01/18/18 14:05 100 20 96 Nasal Cannula 3.0 01/18/18 12:00 Nasal Cannula 3.5 01/18/18 11:22 37.1 84 16 108/55 (72) 93 Nasal Cannula 3.0 01/18/18 09:09 Nasal Cannula 3.5 01/18/18 08:02 36.5 92 18 143/65 (91) 95 Nasal Cannula 3.5 01/18/18 04:00 Nasal Cannula 4.0 01/18/18 04:00 36.6 61 18 134/75 (94) 93 3.0 01/18/18 02:37 107 125/68 01/18/18 02:14 116 18 96 Nasal Cannula 4.0 01/18/18 00:00 Nasal Cannula 4.0 01/17/18 23:59 36.5 118 20 128/67 (87) 94 Nasal Cannula 4.0 01/17/18 23:15 37.0 122 24 106/69 95 Nasal Cannula 4.0 01/17/18 22:23 116 17 138/58 95 01/17/18 22:07 116 17 95 Nasal Cannula 4.0 01/17/18 21:37 113 20 98 Nasal Cannula 4.0 01/17/18 21:32 138/58 01/17/18 21:07 103 19 99 Nasal Cannula 4.0 01/17/18 21:02 139/60 01/17/18 21:00 107 23 100 Nebulizer 01/17/18 20:33 157/78 01/17/18 20:31 91 01/17/18 20:30 92 22 99 Nebulizer 01/17/18 20:28 89 22 99 Nasal Cannula 5.0 01/17/18 20:03 137/103 01/17/18 19:51 97 26 95 Nasal Cannula 4.0 01/17/18 19:48 94 19 98 Nasal Cannula 4.0 01/17/18 19:31 131/97 01/17/18 19:28 166/91 01/17/18 19:19 98 Nasal Cannula 4.0 01/17/18 19:19 36.5 105 24 166/91 98 Nasal Cannula 4.0 01/17/18 19:19 98 Nasal Cannula 4.0 Lab Results: Results Past 24 Hours Test 01/17/18 19:35 01/17/18 19:45 01/17/18 21:41 01/18/18 01:51 Range/Units White Blood Count 8.55 4.8-10.8 K/uL Red Blood Count 4.09 4.2-5.4 M/uL Hemoglobin 12.8 12.0-16.0 g/dL Hematocrit 38.3 37-47 % Mean Corpuscular Volume 93.6 80-100 fL Mean Corpuscular Hemoglobin 31.3 25-34 pg Mean Corpuscular Hemoglobin Concent 33.4 32-36 g/dl Platelet Count 339 130-400 K/uL Mean Platelet Volume 9.8 7.4-10.4 fL Neutrophils (%) (Auto) 81.0 % Lymphocytes (%) (Auto) 13.3 % Monocytes (%) (Auto) 5.0 % Eosinophils (%) (Auto) 0.1 % Basophils (%) (Auto) 0.4 % Neutrophils # (Auto) 6.92 1.4-6.5 K/uL Lymphocytes # (Auto) 1.14 1.2-3.4 K/uL Monocytes # (Auto) 0.43 0.11-0.59 K/uL Eosinophils # (Auto) 0.01 0-0.5 K/uL Basophils # (Auto) 0.03 0-0.2 K/uL RDW Standard Deviation 44.3 36.4-46.3 fL RDW Coefficient of Variation 13.0 11.5-14.5 % Immature Granulocyte % (Auto) 0.2 % Immature Granulocyte # (Auto) 0.02 0.00-0.02 K/uL Sodium Level 137 136-145 mmol/L Potassium Level 3.4 3.5-5.1 mmol/L Chloride Level 103 98-107 mmol/L Carbon Dioxide Level 22 21-32 mmol/L Anion Gap 12.0 3-11 mmol/L Blood Urea Nitrogen 18 7-18 mg/dl Creatinine 0.61 0.60-1.20 mg/dl Est Creatinine Clear Calc Drug Dose 59.0 ml/min Estimated GFR () 104.2 Estimated GFR (Non- 89.9 BUN/Creatinine Ratio 30.1 10-20 Random Glucose 113 70-99 mg/dl Calcium Level 9.6 8.5-10.1 mg/dl Magnesium Level 2.2 1.8-2.4 mg/dl Troponin I 0.066 0.066 0.053 0-0.045 ng/ml Influenza Type A (RT-PCR) Neg for Influ A NEG Influenza Type B (RT-PCR) Neg for Influ B NEG Prothrombin Time 10.8 9.0-12.0 SECONDS Prothromb Time International Ratio 1.0 0.9-1.1 Activated Partial Thromboplast Time 23.6 21.0-31.0 SECONDS Partial Thromboplastin Ratio 0.9 Test 01/18/18 07:14 Range/Units White Blood Count 5.18 4.8-10.8 K/uL Red Blood Count 3.70 4.2-5.4 M/uL Hemoglobin 11.5 12.0-16.0 g/dL Hematocrit 34.7 37-47 % Mean Corpuscular Volume 93.8 80-100 fL Mean Corpuscular Hemoglobin 31.1 25-34 pg Mean Corpuscular Hemoglobin Concent 33.1 32-36 g/dl Platelet Count 297 130-400 K/uL Mean Platelet Volume 10.1 7.4-10.4 fL Neutrophils (%) (Auto) 67.3 % Lymphocytes (%) (Auto) 20.7 % Monocytes (%) (Auto) 11.6 % Eosinophils (%) (Auto) 0.0 % Basophils (%) (Auto) 0.2 % Neutrophils # (Auto) 3.49 1.4-6.5 K/uL Lymphocytes # (Auto) 1.07 1.2-3.4 K/uL Monocytes # (Auto) 0.60 0.11-0.59 K/uL Eosinophils # (Auto) 0.00 0-0.5 K/uL Basophils # (Auto) 0.01 0-0.2 K/uL RDW Standard Deviation 44.5 36.4-46.3 fL RDW Coefficient of Variation 13.0 11.5-14.5 % Immature Granulocyte % (Auto) 0.2 % Immature Granulocyte # (Auto) 0.01 0.00-0.02 K/uL Sodium Level 136 136-145 mmol/L Potassium Level 3.7 3.5-5.1 mmol/L Chloride Level 104 98-107 mmol/L Carbon Dioxide Level 25 21-32 mmol/L Anion Gap 7.0 3-11 mmol/L Blood Urea Nitrogen 19 7-18 mg/dl Creatinine 0.54 0.60-1.20 mg/dl Est Creatinine Clear Calc Drug Dose 66.6 ml/min Estimated GFR () 108.5 Estimated GFR (Non- 93.6 BUN/Creatinine Ratio 36.2 10-20 Random Glucose 103 70-99 mg/dl Calcium Level 8.6 8.5-10.1 mg/dl Total Bilirubin 0.3 0.2-1 mg/dl Aspartate Amino Transf (AST/SGOT) 36 15-37 U/L Alanine Aminotransferase (ALT/SGPT) 22 12-78 U/L Alkaline Phosphatase 55 45-117 U/L Troponin I 0.042 0-0.045 ng/ml Total Protein 6.9 6.4-8.2 gm/dl Albumin 3.7 3.4-5.0 gm/dl Globulin 3.1 2.5-4.0 gm/dl Albumin/Globulin Ratio 1.2 0.9-2 Microbiology Results 01/18/18 Blood Culture, Received Pending 01/18/18 Blood Culture, Received Pending 01/18/18 Gram Stain, Received Pending 01/18/18 Sputum Culture, Received Pending
[2018-01-18] MEDS: ROSUVASTATIN CALCIUM 20 MG TAB PO SCH (20:25)
[2018-01-18] MEDS: CLONAZEPAM 0.5 MG TAB PO PRN (20:25)
[2018-01-19] VITALS (12 sets, daily range): BP systolic 86–126; BP diastolic 47–67; PULSE 77–103; TEMP 36.2–36.7; O2SAT 91–97
[2018-01-19] MEDS: IPRATROPIUM BROMIDE NEB SOLN 0.02% 2.5 ML VIAL INH SCH ×4 (01:27→20:00)
[2018-01-19] MEDS: LEVALBUTEROL 0.63MG/3 ML NEB INH SCH ×4 (01:27→20:00)
[2018-01-19] MEDS: GABAPENTIN 600 MG TAB PO SCH ×3 (08:12→21:00)
[2018-01-19] MEDS: GUAIFENESIN SUGAR FREE 100 MG/5 ML UDC PO PRN (08:13)
[2018-01-19] MEDS: DOXYCYCLINE HYCLATE 100 MG CAP PO SCH ×2 (08:13→21:00)
[2018-01-19] MEDS: CLOPIDOGREL BISULFATE 75 MG TAB PO SCH (08:13)
[2018-01-19] MEDS: METHYLPREDNISOLONE IV 40 MG in SYRINGE 0 ML IV SCH (08:13)
[2018-01-19] MEDS: ISOSORBIDE MONONITRATE 30 MG TABCR PO SCH (08:14)
[2018-01-19] MEDS: CLONAZEPAM 0.5 MG TAB PO PRN (08:14)
--- NOTE | 2018-01-19 10:03 | PULMONARY PROGRESS NOTE ---
DATE: 01/18/2018 TIME: 9:35 a.m. SUBJECTIVE: The patient's cough is less. Her breathing is better, she states. She is having loose bowel movements. This has happened at least twice today thus far. She states nursing is aware of it. She is requesting an increase in her diet, however. OBJECTIVE: GENERAL: The patient appears more comfortable. She is in no distress at rest. She is not coughing when I see her. VITAL SIGNS: Temperature is 36.7. ENT: Unchanged from yesterday. HEART: Heart rate is 78 per minute. The rhythm is regular. CHEST: Auscultation of the lung saucedo reveals prolongation to the expiratory phase of respiration with mild rhonchi. The aeration is improved compared with yesterday. Her respiratory rate is 18 breaths per minute. Blood pressure 126/67. Oxygen saturation is 97% on 3 liters. ABDOMEN: Soft and nontender. EXTREMITIES: Show no edema. DATA: She did have an EKG done today. There were some Q-waves in the inferior leads. There are T-wave inversions in V1, V2 and V3. These findings have progressed compared with one day earlier. There is no lab work from today. Sputum for culture showed significant squamous cells indicating upper respiratory contamination. When I saw the specimen, it looked like mainly saliva to me. IMPRESSIONS: 1. Chronic obstructive pulmonary disease with exacerbation. 2. Emphysema. 3. Right lung granuloma. 4. History of esophageal stricture. 5. Abnormal EKG -- uncertain etiology. COMMENTS AND RECOMMENDATIONS: I believe the steroids can be changed to oral. Would continue with the nebulizer treatments. If the diarrhea continues, may need to consider checking a C. diff or stopping the antibiotic.
[2018-01-19] MEDS ORDERED: SODIUM CHLORIDE 0.9% 1000ML 1,000 ML IV SCH (11:45)
[2018-01-19] MEDS: SODIUM CHLORIDE 0.9% 1000ML 1,000 ML IV SCH ×2 (12:27→23:20)
[2018-01-19] MEDS ORDERED: COUGH DROP (SUGAR FREE) LOZ 24 LOZ/1 BOX LOZ ONE (14:36)
[2018-01-19] MEDS ORDERED: COUGH DROP (SUGAR FREE) LOZ 24 LOZ/1 BOX LOZ PRN (14:45)
--- NOTE | 2018-01-19 14:58 | Gastrointestinal Consultation ---
Gastrointestinal Consultation Date of Consultation: Jan 19, 2018 Attending Physician: Maurice Ford Consulting Physician: Cristy Nicholas Reason for Consultation: ? esophageal stricture History of Present Illness Patient is a 72 year old female with PMHx of anemia, anxiety, CAD, COPD, Dysphagia, GERD, hx of Cdiff, esophageal stricture s/p dilations, HTN, HLD, OP, PVD, trigger finger currently being admitted for COPD exacerbation, emphysema. GI is consulted today as she had been c/o trouble swallowing her foods for a few days. Though she said that today she tolerated food fine - ate turkey and mashed potatoes w/o coughing, chocking signs. In fact currently her main complaint besides her breathing issues is diarrhea. Cdiff test is being ordered. She had previous EGDs with dilation for Schatzki ring. Last dilation in 2015. EGD in 2016 showed hiatal hernia, dilation wasn't done as her Plavix wasn't held then. Past Medical/Surgical History Medical Problems: (1) Acute exacerbation of chronic obstructive pulmonary disease (COPD) Status: Acute (2) Elevated troponin Status: Acute Past Medical History: See above Past Surgical History: Appendectomy Hemorrhoidectomy Total hysterectomy Knee surgery L heart cath Bilateral carotid endarterectomy Iliac artery stent. Family History Heart disease Social History Smoking Status: Current Every Day Smoker Alcohol Use: occasionally Drug Use: none Marital Status: single Housing Status: unknown Occupation Status: retired Allergies Coded Allergies: Corticosteroids (Verified Allergy, Unknown, swelling, 04/06/16) Cortisone (Verified Allergy, Unknown, swelling, 04/06/16) Metoclopramide (Verified Allergy, Unknown, UNKNOWN, 04/06/16) Salicylates (Verified Adverse Reaction, Unknown, caused bleeding, can take EC aspirin, 04/06/16) Current Medications Home Meds and Scripts Medications Dose Route/Sig Max Daily Dose Days Date Category Dose Instructions Ventolin Hfa (Albuterol) 200 Puffs/48936 Mcg Aers 2 Puffs INH Q6H 01/17/18 Reported Dexilant (Dexlansoprazole) 60 Mg Cap 60 Mg PO DAILY 01/17/18 Reported Micro-K Ext Rel (Potassium Chloride) 10 Meq Capcr 10 Meq PO 2XWK PRN 04/01/16 Reported Lasix (Furosemide) 20 Mg Tab 20 Mg PO 2XWK PRN 04/01/16 Reported Carafate (Sucralfate) 1 Gm Tab 1 Gm PO HS 04/01/16 Reported Qvar (Beclomethasone Dipropionate) 80 Mcg/ Aer 2 Puffs INH BID 04/01/16 Reported Zofran (Ondansetron HCl) 4 Mg Tab 4 Mg PO Q6 PRN 05/04/15 Reported Lactinex (Lactobacillus Acidophilus) Tab 1 Tab PO BID 05/04/15 Reported Ferrous Sulfate 325 Mg Tab 325 Mg PO BID 05/04/15 Reported Vibramycin (Doxycycline Hyclate) 100 Mg Cap 100 Mg PO BID PRN 12/11/14 Reported COPD RESCUE KIT, TAKE DIRECTED UNTIL GONE. Miralax (Polyethylene Glycol 3350) 1 Pow 17 Gm PO DAILY PRN 12/11/14 Reported DISSOLVE 1 TABLESPOON IN 8 OUNCES OF WATER OR JUICE, ONLY 1 DOSE PER DAY IF NEEDED. Docusate Sodium 100 Mg Cap 100 Mg PO BID PRN 12/11/14 Reported Diltiazem Hcl Er (Diltiazem Hcl) 90 Mg Cap 90 Mg PO QAM 12/11/14 Reported Alendronate Sodium 70 Mg Tab 70 Mg PO Wednesday12/11/14 Reported Crestor (Rosuvastatin Calcium) 20 Mg Tab 20 Mg PO QPM 12/11/14 Reported Baclofen 10 Mg Tab 10 Mg PO HS PRN 12/11/14 Reported Imdur Ext Rel (Isosorbide Mononitrate) 30 Mg Tabcr 30 Mg PO QAM 12/11/14 Reported Clopidogrel (Clopidogrel Bisulfate) 75 Mg Tab 75 Mg PO QAM 12/11/14 Reported Gabapentin 600 Mg Tab 600 Mg PO TID 12/11/14 Reported Atrovent Hfa (Ipratropium [place]) 200 Puffs/3400 Mcg Aers 2 Puffs INH Q4H PRN 12/11/14 Reported Zantac (Ranitidine Hcl) 300 Mg Tab 300 Mg PO BID 12/11/14 Reported Calcium 600+D (Calcium Carbonate-Vitamin D) 1 Tab Tab 1 Tab PO BID 12/02/14 Reported TAKE THIS MEDICATION WITH FOOD. Prednisone 10 Mg Tab 40 Mg PO UD PRN 12/24/13 Reported COPD RESCUE PACK FOLLOWS: 2 TABLETS BY MOUTH QAM W FOOD U/G Magic Swizzle (Maalox/Diphen/Visc. [place]/Glyc) 240 Ml Btl 5 Ml PO QID 11/23/12 Reported GARGLE FOR 30 SECONDS AND SWALLOW, AVOID EATING FOR 20 MINUTES. Ultram (Tramadol Hcl) 50 Mg Tab 50 Mg PO Q6H PRN 11/23/12 Reported Vitamin B12 500MCG (Cyanocobalamin) 500 Mcg Tab 500 Mcg PO QPM 11/23/12 Reported Pulmicort Respules 0.25MG/2ML (Budesonide) 0.25 Mg/2 Ml Nebu 2 Ml NEB BID 11/23/12 Reported 2 ml by nebulizer twice a day with Brovana. Nasonex (Mometasone Furoate (Nasal)) 50 Mcg/ Spr 2 Sprays MALATHI QAM 11/23/12 Reported Klonopin (Clonazepam) 0.5 Mg Tab 0.5 Mg PO BID PRN 11/23/12 Reported Brovana 15MCG/2ML Soln (Arformoterol Tartrate) Nebu 2 Ml NEB BID 11/23/12 Reported TAKE WITH PULMICORT Oxygen Gas 3 Liters NA CONTINOUS 07/02/11 Reported Review of Systems Constitutional: No fever, No chills, No weight loss Respiratory: + shortness of breath, + dyspnea on exertion, No cough Cardiac: No chest pain Abdomen: + diarrhea, No pain, No nausea, No vomiting Physical Exam Date Time Temp Pulse Resp B/P (MAP) Pulse Ox O2 Delivery O2 Flow Rate FiO2 01/19/18 12:29 103 93/47 (62) 01/19/18 12:00 Nasal Cannula 3.5 01/19/18 11:30 93 86/56 (66) 01/19/18 11:15 36.7 91 18 88/54 (65) 94 Nasal Cannula 3.5 01/19/18 08:00 Nasal Cannula 3.5 01/19/18 07:29 36.7 78 16 126/67 (86) 97 Room Air 01/19/18 07:09 103 18 97 Nasal Cannula 3.0 01/19/18 04:20 36.5 82 18 100/60 (73) 91 Nasal Cannula 3.0 01/19/18 04:00 95 Nasal Cannula 3.5 01/19/18 01:27 92 16 95 Nasal Cannula 3.0 01/18/18 23:59 95 Nasal Cannula 3.5 01/18/18 23:57 36.5 82 18 109/59 (76) 97 Nasal Cannula 2.0 01/18/18 20:24 36.7 101 20 116/59 (78) 93 Nasal Cannula 3.0 01/18/18 20:00 95 Nasal Cannula 3.5 01/18/18 19:38 87 20 95 Nasal Cannula 3.0 01/18/18 16:19 36.9 102 20 97/50 (66) 94 Nasal Cannula 3.0 01/18/18 16:00 96 Nasal Cannula 3.5 General Appearance: + mild distress (trouble breathing) Eyes: normal inspection, PERRL, EOMI Neck: supple, no JVD, trachea midline Respiratory/Chest: + decreased breath sounds, + rhonchi Cardiovascular: regular rate, rhythm, no gallop, no murmur Abdomen: normal bowel sounds, non tender, soft Extremities: normal inspection, no pedal edema, no calf tenderness Neurologic/Psych: alert, normal mood/affect, oriented x 3 Skin: normal color, no jaundice, no rash Impression Patient is a 72 year old female currently admitted for COPD exacerbation and emphysema, seen for dysphagia which she said has resolved. She has hx of recurrent dysphagia secondary to Schatzki's ring and had periodical esophageal dilation for the stricture. Last dilation done in 2014. Currently she is tolerating soft foods fine w/o chocking or coughing. Her Plavix is not held and currently she's having respiratory issues. Thus we will avoid EGD w dilation at this time but can re-evaluate her in outpt setting in 2 week's time for possible esophageal dilation then. Please follow up on Cdiff test for her diarrhea symptoms. I performed a history and physical examination of the patient, including specifically on physical exam - no abdominal tenderness. I have discussed the patient's management with DIAMOND Cam. Please refer to the nurse practitioner's note for the documented findings and plan of care. Currently able to tolerate soft food with no sign of obstruction, in view of acute COPD exacerbation will defer EGD for outpatient.
[2018-01-19] MEDS ORDERED: NURSING VERBAL MED ORDER ONE (15:15)
[2018-01-19] MEDS: LACTOBACILLUS ACIDOPHILUS (FLORANEX) TAB PO SCH (16:46)
[2018-01-19] MEDS: ROSUVASTATIN CALCIUM 20 MG TAB PO SCH (21:00)
[2018-01-20] VITALS (13 sets, daily range): BP systolic 109–161; BP diastolic 53–75; PULSE 61–95; TEMP 36.6–36.8; O2SAT 90–99
[2018-01-20] MEDS: IPRATROPIUM BROMIDE NEB SOLN 0.02% 2.5 ML VIAL INH SCH ×5 (02:07→23:40)
[2018-01-20] MEDS: LEVALBUTEROL 0.63MG/3 ML NEB INH SCH ×5 (02:07→23:40)
[2018-01-20 06:33] LABS: BASO % 0.3 %; BASO ABS # 0.02 K/uL (0-0.2); EOS % 1.2 %; EOS ABS # 0.07 K/uL (0-0.5); HEMATOCRIT 31.2 % (37-47); HEMOGLOBIN 10.5 g/dL (12.0-16.0); IG# 0.01 K/uL (0.00-0.02); LYMPH % 33.1 %; LYMPH ABS # 1.95 K/uL (1.2-3.4); MEAN CELL VOLUME 93.1 fL (80-100); MEAN CORPUSCULAR HEMOGLOBIN 31.3 pg (25-34); MEAN CORPUSCULAR HGB CONC 33.7 g/dl (32-36); MEAN PLATELET VOLUME 9.8 fL (7.4-10.4); MONO % 12.6 %; MONO ABS # 0.74 K/uL (0.11-0.59); NEUT % 52.6 %; PLATELET COUNT 276 K/uL (130-400); RED CELL DISTRIBUTION WIDTH CV 13.1 % (11.5-14.5); RED CELL DISTRIBUTION WIDTH SD 44.8 fL (36.4-46.3); WHITE BLOOD COUNT 5.89 K/uL (4.8-10.8)
[2018-01-20 06:58] LABS: CALCIUM 7.8 mg/dl (8.5-10.1); CREATININE 0.59 mg/dl (0.60-1.20); POTASSIUM 3.2 mmol/L (3.5-5.1)
[2018-01-20] MEDS ORDERED: POTASSIUM CHLORIDE 20 MEQ TABCR PO STA (07:25)
[2018-01-20] MEDS: GABAPENTIN 600 MG TAB PO SCH ×3 (07:58→19:23)
[2018-01-20] MEDS: CLOPIDOGREL BISULFATE 75 MG TAB PO SCH (07:58)
[2018-01-20] MEDS: GUAIFENESIN SUGAR FREE 100 MG/5 ML UDC PO PRN (07:59)
[2018-01-20] MEDS: ISOSORBIDE MONONITRATE 30 MG TABCR PO SCH (07:59)
[2018-01-20] MEDS: LACTOBACILLUS ACIDOPHILUS (FLORANEX) TAB PO SCH ×3 (07:59→16:54)
[2018-01-20] MEDS: DOXYCYCLINE HYCLATE 100 MG CAP PO SCH ×2 (08:00→19:24)
--- NOTE | 2018-01-20 09:22 | Progress Note ---
Internal Med Progress Note Date of Service: Jan 19, 2018. Provider Documentation: SUBJECTIVE: resting comfortably having diarrhea several times afebrile' no nausea likes to advance the diet sob better still has cough OBJECTIVE: Vital Signs-as noted below Exam: General-alert and oriented. ENT-Normal hearing Neck-no neck masses Lungs-diminished b/l breath sounds , mild wheezing no crackles present Heart-S1 and S2 heard regular rate and rhythm no murmurs present Abdomen-Soft bowel sounds present non tender no distension Extremities-no edema no erythema Neuro-alert and awake moves extremities Lab data as noted below. ASSESSMENT & PLAN: COPD exacerbation CXR no infiltrates/consolidation currently on solumedrol 40mg daily, nebs atc and prn and doxycyline appreciate pulmonary inputs daughter was worried about tremors on steroids or nebs- will monitor changing solumedrol to prednisone elevated troponin of 0.066 On admission EKG: normal sinus, premature atrial contractions, prolonged QT ( QTc of 508) Most;y nstemi from demand ischemia from above troponin trending down asymptomatic echo unremarkable except for small pericardial effusion stable Hypotension mostly from dehydration from diarrhea will give fluids stool for c diff will monitor hx of oesophageal stricture Gi likes to f/u as out patient Hx of Anemia will f/u labs. mild hypokalemia replace HTN on diltiazem, isosorbide will monitor DVT ppx: SCD Code Status Full Code DISPOSITION to be determined Vital Signs: Date Time Temp Pulse Resp B/P (MAP) Pulse Ox O2 Delivery O2 Flow Rate FiO2 01/20/18 08:00 Nasal Cannula 3.0 01/20/18 07:58 84 149/75 (99) 01/20/18 07:25 36.7 79 18 129/62 (84) 90 Nasal Cannula 3.0 01/20/18 07:03 75 18 96 Nasal Cannula 3.0 01/20/18 04:21 36.7 61 16 117/66 (83) 93 Nasal Cannula 3.0 01/20/18 04:00 Nasal Cannula 3.0 01/20/18 02:08 86 20 93 Nasal Cannula 3.0 01/20/18 00:00 Nasal Cannula 3.0 01/19/18 23:26 36.5 78 16 107/63 (78) 96 Nasal Cannula 2.0 01/19/18 20:00 81 20 93 Nasal Cannula 3.0 01/19/18 15:21 36.2 77 16 101/65 (77) 94 2.0 01/19/18 15:07 101 18 94 Nasal Cannula 3.0 01/19/18 12:29 103 93/47 (62) 01/19/18 12:00 Nasal Cannula 3.5 01/19/18 11:30 93 86/56 (66) 01/19/18 11:15 36.7 91 18 88/54 (65) 94 Nasal Cannula 3.5 Lab Results: Results Past 24 Hours Test 01/20/18 05:52 Range/Units White Blood Count 5.89 4.8-10.8 K/uL Red Blood Count 3.35 4.2-5.4 M/uL Hemoglobin 10.5 12.0-16.0 g/dL Hematocrit 31.2 37-47 % Mean Corpuscular Volume 93.1 80-100 fL Mean Corpuscular Hemoglobin 31.3 25-34 pg Mean Corpuscular Hemoglobin Concent 33.7 32-36 g/dl Platelet Count 276 130-400 K/uL Mean Platelet Volume 9.8 7.4-10.4 fL Neutrophils (%) (Auto) 52.6 % Lymphocytes (%) (Auto) 33.1 % Monocytes (%) (Auto) 12.6 % Eosinophils (%) (Auto) 1.2 % Basophils (%) (Auto) 0.3 % Neutrophils # (Auto) 3.10 1.4-6.5 K/uL Lymphocytes # (Auto) 1.95 1.2-3.4 K/uL Monocytes # (Auto) 0.74 0.11-0.59 K/uL Eosinophils # (Auto) 0.07 0-0.5 K/uL Basophils # (Auto) 0.02 0-0.2 K/uL RDW Standard Deviation 44.8 36.4-46.3 fL RDW Coefficient of Variation 13.1 11.5-14.5 % Immature Granulocyte % (Auto) 0.2 % Immature Granulocyte # (Auto) 0.01 0.00-0.02 K/uL Sodium Level 140 136-145 mmol/L Potassium Level 3.2 3.5-5.1 mmol/L Chloride Level 110 98-107 mmol/L Carbon Dioxide Level 23 21-32 mmol/L Anion Gap 7.0 3-11 mmol/L Blood Urea Nitrogen 22 7-18 mg/dl Creatinine 0.59 0.60-1.20 mg/dl Est Creatinine Clear Calc Drug Dose 61.0 ml/min Estimated GFR () 105.4 Estimated GFR (Non- 90.9 BUN/Creatinine Ratio 38.4 10-20 Random Glucose 90 70-99 mg/dl Calcium Level 7.8 8.5-10.1 mg/dl Magnesium Level 1.8 1.8-2.4 mg/dl Microbiology Results 01/19/18 C.difficile Toxin B Gene (PCR) - Final, Complete No C. difficile toxin B gene detected
[2018-01-20] MEDS: SODIUM CHLORIDE 0.9% 1000ML 1,000 ML IV SCH (09:49)
[2018-01-20] MEDS: CLONAZEPAM 0.5 MG TAB PO PRN ×2 (12:02→20:16)
--- NOTE | 2018-01-20 12:33 | PULMONARY PROGRESS NOTE ---
DATE: 01/20/2018 TIME: 11:00 a.m. SUBJECTIVE: The patient states she feels much better. She states her breathing is easier. Nursing did acknowledge that the patient did much better going to the bathroom and washing herself today with less respiratory distress. The patient states her cough is better. She has not had any more episodes of coughing or vomiting and she insists she is able to swallow food without difficulty. A GI consult was noted. OBJECTIVE: GENERAL: The patient appears comfortable. VITAL SIGNS: Temperature is 36.6. Heart rate was 86 per minute. The rhythm is regular. Blood pressure 138/53. EARS, NOSE, AND THROAT: Unremarkable. LUNGS: Lung saucedo revealed mild rhonchi bilaterally posteriorly. Saturation was 95% on 3 liter nasal cannula. Respiratory rate is 20. EXTREMITIES: Showed no cyanosis, clubbing or edema. LABORATORY DATA: White count today is 5.89. Hemoglobin 10.5. This has been dropping a bit compared with her admission of 12.8. Platelets were 276,000. Electrolytes show sodium 140, potassium 3.2, chloride 110, and bicarb 23. BUN is 22 with a creatinine of 0.59. IMPRESSIONS: 1. Chronic obstructive pulmonary disease with exacerbation -- improved. 2. Emphysema. 3. Granuloma of the right lung. 4. History of esophageal stricture. 5. Anxiety. 6. Tremor -- improved. COMMENTS AND RECOMMENDATIONS: The patient seems to be clinically doing well and returning almost to her baseline. She is on oral steroids. She is on neb treatments. I believe if she continues to improve, she should be ready for discharge soon, perhaps tomorrow. At discharge, there will be an issue about her medications. The patient really did not know with any degree of knowledge what she was taking. Obviously, we would strongly encourage her to have no further smoking. I do not believe she is committed, however.
--- NOTE | 2018-01-20 13:13 | Progress Note ---
Internal Med Progress Note Date of Service: Jan 20, 2018. Provider Documentation: SUBJECTIVE: eating lunch swallowing ok diarrhea resolved afebrile moving in room ok sob improving want to go home OBJECTIVE: Vital Signs-as noted below Exam: General-alert and oriented. ENT-Normal hearing Neck-no neck masses Lungs-diminished b/l breath sounds , no wheezing no crackles present Heart-S1 and S2 heard regular rate and rhythm no murmurs present Abdomen-Soft bowel sounds present non tender no distension Extremities-no edema no erythema Neuro-alert and awake moves extremities Lab data as noted below. ASSESSMENT & PLAN: COPD exacerbation CXR no infiltrates/consolidation currently on solumedrol 40mg daily, nebs atc and prn and doxycyline appreciate pulmonary inputs daughter was worried about tremors on steroids or nebs- will monitor changing solumedrol to prednisone improving- continue same for now elevated troponin of 0.066 On admission EKG: normal sinus, premature atrial contractions, prolonged QT ( QTc of 508) Most;y nstemi from demand ischemia from above troponin trending down asymptomatic echo unremarkable except for small pericardial effusion stable Hypotension mostly from dehydration from diarrhea started on fluids stool for c diff negative diarrhea resolved BP improved will stop fluids hx of oesophageal stricture Gi likes to f/u as out patient Hx of Anemia will f/u labs. hb 10.5 today mild hypokalemia replace HTN on diltiazem, isosorbide will monitor DVT ppx: SCD Code Status Full Code DISPOSITION pt/ot possible d/c in am Vital Signs: Date Time Temp Pulse Resp B/P (MAP) Pulse Ox O2 Delivery O2 Flow Rate FiO2 01/20/18 12:00 Nasal Cannula 3.0 01/20/18 11:23 36.6 86 20 138/53 (81) 95 Nasal Cannula 3.0 01/20/18 08:00 Nasal Cannula 3.0 01/20/18 07:58 84 149/75 (99) 01/20/18 07:25 36.7 79 18 129/62 (84) 90 Nasal Cannula 3.0 01/20/18 07:03 75 18 96 Nasal Cannula 3.0 01/20/18 04:21 36.7 61 16 117/66 (83) 93 Nasal Cannula 3.0 01/20/18 04:00 Nasal Cannula 3.0 01/20/18 02:08 86 20 93 Nasal Cannula 3.0 01/20/18 00:00 Nasal Cannula 3.0 01/19/18 23:26 36.5 78 16 107/63 (78) 96 Nasal Cannula 2.0 01/19/18 20:00 81 20 93 Nasal Cannula 3.0 01/19/18 15:21 36.2 77 16 101/65 (77) 94 2.0 01/19/18 15:07 101 18 94 Nasal Cannula 3.0 Lab Results: Results Past 24 Hours Test 01/20/18 05:52 Range/Units White Blood Count 5.89 4.8-10.8 K/uL Red Blood Count 3.35 4.2-5.4 M/uL Hemoglobin 10.5 12.0-16.0 g/dL Hematocrit 31.2 37-47 % Mean Corpuscular Volume 93.1 80-100 fL Mean Corpuscular Hemoglobin 31.3 25-34 pg Mean Corpuscular Hemoglobin Concent 33.7 32-36 g/dl Platelet Count 276 130-400 K/uL Mean Platelet Volume 9.8 7.4-10.4 fL Neutrophils (%) (Auto) 52.6 % Lymphocytes (%) (Auto) 33.1 % Monocytes (%) (Auto) 12.6 % Eosinophils (%) (Auto) 1.2 % Basophils (%) (Auto) 0.3 % Neutrophils # (Auto) 3.10 1.4-6.5 K/uL Lymphocytes # (Auto) 1.95 1.2-3.4 K/uL Monocytes # (Auto) 0.74 0.11-0.59 K/uL Eosinophils # (Auto) 0.07 0-0.5 K/uL Basophils # (Auto) 0.02 0-0.2 K/uL RDW Standard Deviation 44.8 36.4-46.3 fL RDW Coefficient of Variation 13.1 11.5-14.5 % Immature Granulocyte % (Auto) 0.2 % Immature Granulocyte # (Auto) 0.01 0.00-0.02 K/uL Sodium Level 140 136-145 mmol/L Potassium Level 3.2 3.5-5.1 mmol/L Chloride Level 110 98-107 mmol/L Carbon Dioxide Level 23 21-32 mmol/L Anion Gap 7.0 3-11 mmol/L Blood Urea Nitrogen 22 7-18 mg/dl Creatinine 0.59 0.60-1.20 mg/dl Est Creatinine Clear Calc Drug Dose 61.0 ml/min Estimated GFR () 105.4 Estimated GFR (Non- 90.9 BUN/Creatinine Ratio 38.4 10-20 Random Glucose 90 70-99 mg/dl Calcium Level 7.8 8.5-10.1 mg/dl Magnesium Level 1.8 1.8-2.4 mg/dl Microbiology Results 01/19/18 C.difficile Toxin B Gene (PCR) - Final, Complete No C. difficile toxin B gene detected
[2018-01-20] MEDS: ROSUVASTATIN CALCIUM 20 MG TAB PO SCH (19:23)
[2018-01-21] VITALS (9 sets, daily range): BP systolic 97–137; BP diastolic 58–75; PULSE 81–104; TEMP 36.4–36.5; O2SAT 95–98
[2018-01-21] MEDS: LEVALBUTEROL 1.25MG/3ML NEB INH PRN ×2 (02:23→11:50)
[2018-01-21 05:38] LABS: BASO % 0.3 %; BASO ABS # 0.02 K/uL (0-0.2); EOS % 1.2 %; EOS ABS # 0.08 K/uL (0-0.5); HEMOGLOBIN 10.6 g/dL (12.0-16.0); IG# 0.02 K/uL (0.00-0.02); LYMPH % 34.8 %; MEAN CELL VOLUME 92.3 fL (80-100); MEAN CORPUSCULAR HEMOGLOBIN 31.5 pg (25-34); MEAN CORPUSCULAR HGB CONC 34.2 g/dl (32-36); MEAN PLATELET VOLUME 9.6 fL (7.4-10.4); MONO % 11.8 %; MONO ABS # 0.78 K/uL (0.11-0.59); NEUT % 51.6 %; PLATELET COUNT 274 K/uL (130-400); RED CELL DISTRIBUTION WIDTH SD 43.9 fL (36.4-46.3)
[2018-01-21 06:13] LABS: CALCIUM 8.6 mg/dl (8.5-10.1); CREATININE 0.63 mg/dl (0.60-1.20)
[2018-01-21] MEDS: IPRATROPIUM BROMIDE NEB SOLN 0.02% 2.5 ML VIAL INH SCH ×2 (07:11→14:34)
[2018-01-21] MEDS: LEVALBUTEROL 0.63MG/3 ML NEB INH SCH ×2 (07:11→14:34)
[2018-01-21] MEDS: LACTOBACILLUS ACIDOPHILUS (FLORANEX) TAB PO SCH ×2 (07:30→11:30)
[2018-01-21] MEDS: CLOPIDOGREL BISULFATE 75 MG TAB PO SCH (07:31)
[2018-01-21] MEDS: DOXYCYCLINE HYCLATE 100 MG CAP PO SCH (07:31)
[2018-01-21] MEDS: GABAPENTIN 600 MG TAB PO SCH ×2 (07:32→14:35)
[2018-01-21] MEDS: ISOSORBIDE MONONITRATE 30 MG TABCR PO SCH (07:33)
[2018-01-21] MEDS ORDERED: ACETAMINOPHEN 325 MG TAB PO PRN (08:15)
--- NOTE | 2018-01-21 09:29 | PULMONARY PROGRESS NOTE ---
DATE: 01/21/2018 TIME: 09:10 a.m. SUBJECTIVE: The patient denies shortness of breath. She states that last evening, she walked the hallway with nursing on 2 occasions and had no trouble. She does admit that during the night time, she awakened with a burning sensation in her throat. I do not believe she considered the fact that this could be reflux. She apparently asked the nurse for cough drop. There was nothing seen on the nursing notes discussing the situation. She denies any sharp chest pain. OBJECTIVE: GENERAL: The patient appeared comfortable. Her tremors have dramatically decreased. She did not cough during this exam. VITAL SIGNS: She is afebrile with temperature 36.4. The heart rate was 80 beats per minute. The rhythm was regular. Blood pressure most recently was decreased to 97/58. This was at 07:16 a.m. It had been 134/75 during the nighttime. This should be rechecked. LUNGS: Lung saucedo were almost clear. There were very faint rales with no rhonchi. EXTREMITIES: Showed no cyanosis, clubbing or edema. LABORATORY DATA: White count of 6.6. Hemoglobin 10.6. Platelets 274,000. Electrolytes show sodium 140, potassium 3.0, chloride 110, and bicarbonate 23. BUN is 17 with a creatinine of 0.63. IMPRESSIONS: 1. Chronic obstructive pulmonary disease exacerbation. 2. Emphysema. 3. Granuloma, right lung. 4. History of esophageal stricture. 5. Anxiety. 6. Tremor. 7. Probable reflux. COMMENTS: The patient is stable from a respiratory perspective. I have no objection to discharge when desired from a pulmonary perspective. I would advise giving her some medication for reflux. This may be exacerbated by being on steroids. We will defer to the hospitalist team if they feel they should do an EKG for completeness. The patient plans on following up with her pulmonary group up in [facility]. I believe she should continue with the neb treatments at home. She was very confused about what medicine she actually is taking at home and that all needs to be clarified. The med reconciliation form mentioned that she was on Brovana at home and budesonide. Considering how well she has done here, I probably would prefer that she stay with the levalbuterol/ipratropium, particularly in light of the severe tremors she was having.
[2018-01-21] MEDS: CLONAZEPAM 0.5 MG TAB PO PRN (11:35)
[2018-01-21] MEDS ORDERED: RBTUDL5 PO ×2 (14:58→15:10)
[2018-01-21] MEDS ORDERED: XPNINS INH ×2 (14:58→15:10)
[2018-01-21] MEDS ORDERED: DXY100 PO ×2 (14:58→15:10)
[2018-01-21] MEDS ORDERED: LEVA45AE INH ×2 (14:58→15:10)
[2018-01-21] MEDS ORDERED: PRED10TA PO ×2 (14:58→15:10)
[2018-01-21] MEDS ORDERED: ATRINS INH ×2 (14:58→15:10)
--- NOTE | 2018-01-21 15:01 | Discharge Instructions ---
Discharge Instructions Date of Service Jan 21, 2018. Admission Reason for Admission: Copd Exacerbation, Elevated Troponin Discharge Discharge Diagnosis / Problem: copd ex Discharge Goals Goal(s): Decrease discomfort, Improve function Activity Recommendations Activity Limitations: resume your previous activity . Instructions / Follow-Up Instructions / Follow-Up FOLLOWUP WITH FAMILY DOCTOR ON January AT 9:25AM FOLLOWUP WITH GI FOR OESOPHAGEAL STRICTURE WITH PCP REFERRAL. PLEASE GO THROUGH MEDICATION LIST CAREFULLY. Current Hospital Diet Patient's current hospital diet: Low Fiber Diet Discharge Diet Recommended Diet: Regular Diet Pending Studies Studies pending at discharge: no Medical Emergencies . Who to Call and When: Medical Emergencies: If at any time you feel your situation is an emergency, please call 911 immediately. . Non-Emergent Contact Non-Emergency issues call your: Primary Care Provider . . "Provider Documentation" section prepared by Maurice Ford. .
--- NOTE | 2018-01-21 18:00 | Progress Note ---
Internal Med Progress Note Date of Service: Jan 21, 2018. Provider Documentation: SUBJECTIVE: resting comfortably sob and cough improved diarrhea resolved eating ok ambulated fine afebrile and wants to go home OBJECTIVE: Vital Signs-as noted below Exam: General-alert and oriented. ENT-Normal hearing Neck-no neck masses Lungs-diminished b/l breath sounds , no wheezing no crackles present Heart-S1 and S2 heard regular rate and rhythm no murmurs present Abdomen-Soft bowel sounds present non tender no distension Extremities-no edema no erythema Neuro-alert and awake moves extremities Lab data as noted below. ASSESSMENT & PLAN: COPD exacerbation CXR no infiltrates/consolidation currently on solumedrol 40mg daily, nebs atc and prn and doxycycline appreciate pulmonary inputs daughter was worried about tremors on steroids or nebs- will monitor changing solumedrol to prednisone improving- continue same for now d/daniel on prednisone taper, doxy cahned nebs to xopenex/ipratropium as patient having tremors mostly from duonebs f/u with pcp elevated troponin of 0.066 On admission EKG: normal sinus, premature atrial contractions, prolonged QT ( QTc of 508) Most;y nstemi from demand ischemia from above troponin trending down asymptomatic echo unremarkable except for small pericardial effusion repeat ekg today unremarkable stable Hypotension mostly from dehydration from diarrhea started on fluids stool for c diff negative diarrhea resolved BP improved stopped fluids hx of oesophageal stricture Gi likes to f/u as out patient Hx of Anemia will f/u labs. hb 10.6 today mild hypokalemia replace HTN on diltiazem, isosorbide stable will monitor discharged home with home health Vital Signs: Date Time Temp Pulse Resp B/P (MAP) Pulse Ox O2 Delivery O2 Flow Rate FiO2 01/21/18 15:17 36.5 98 18 97 Nasal Cannula 01/21/18 14:34 98 18 97 Nasal Cannula 3.0 01/21/18 12:00 Nasal Cannula 3.0 01/21/18 11:50 89 18 95 Nasal Cannula 3.0 01/21/18 11:24 36.5 104 20 102/63 (76) 95 01/21/18 09:13 95 95 01/21/18 08:00 Nasal Cannula 3.0 01/21/18 07:16 36.4 81 20 97/58 (71) 95 01/21/18 07:11 84 18 97 Nasal Cannula 3.0 01/21/18 04:00 Nasal Cannula 3.0 01/21/18 03:41 36.4 83 20 134/75 (94) 97 Nasal Cannula 3.0 01/21/18 02:23 89 18 98 Nasal Cannula 3.0 01/21/18 00:00 Nasal Cannula 3.0 01/20/18 23:47 36.8 77 18 147/61 (89) 99 Nasal Cannula 3.0 01/20/18 23:40 88 18 96 Nasal Cannula 3.0 01/20/18 20:00 Nasal Cannula 3.0 01/20/18 19:36 36.6 95 20 129/64 (85) 96 Nasal Cannula 3.0 01/20/18 18:59 87 18 95 Nasal Cannula 3.0 Lab Results: Results Past 24 Hours Test 01/21/18 05:18 Range/Units White Blood Count 6.60 4.8-10.8 K/uL Red Blood Count 3.36 4.2-5.4 M/uL Hemoglobin 10.6 12.0-16.0 g/dL Hematocrit 31.0 37-47 % Mean Corpuscular Volume 92.3 80-100 fL Mean Corpuscular Hemoglobin 31.5 25-34 pg Mean Corpuscular Hemoglobin Concent 34.2 32-36 g/dl Platelet Count 274 130-400 K/uL Mean Platelet Volume 9.6 7.4-10.4 fL Neutrophils (%) (Auto) 51.6 % Lymphocytes (%) (Auto) 34.8 % Monocytes (%) (Auto) 11.8 % Eosinophils (%) (Auto) 1.2 % Basophils (%) (Auto) 0.3 % Neutrophils # (Auto) 3.40 1.4-6.5 K/uL Lymphocytes # (Auto) 2.30 1.2-3.4 K/uL Monocytes # (Auto) 0.78 0.11-0.59 K/uL Eosinophils # (Auto) 0.08 0-0.5 K/uL Basophils # (Auto) 0.02 0-0.2 K/uL RDW Standard Deviation 43.9 36.4-46.3 fL RDW Coefficient of Variation 13.0 11.5-14.5 % Immature Granulocyte % (Auto) 0.3 % Immature Granulocyte # (Auto) 0.02 0.00-0.02 K/uL Sodium Level 140 136-145 mmol/L Potassium Level 3.0 3.5-5.1 mmol/L Chloride Level 110 98-107 mmol/L Carbon Dioxide Level 23 21-32 mmol/L Anion Gap 7.0 3-11 mmol/L Blood Urea Nitrogen 17 7-18 mg/dl Creatinine 0.63 0.60-1.20 mg/dl Est Creatinine Clear Calc Drug Dose 57.1 ml/min Estimated GFR () 103.1 Estimated GFR (Non- 89.0 BUN/Creatinine Ratio 27.3 10-20 Random Glucose 95 70-99 mg/dl Calcium Level 8.6 8.5-10.1 mg/dl Magnesium Level 1.7 1.8-2.4 mg/dl
--- NOTE | 2018-01-29 09:51 | Discharge Summary ---
Discharge Summary Date of Service Jan 29, 2018. Discharge Summary Admission Date: Jan 17, 2018 at 21:09 Discharge Date: Jan 21, 2018 Discharge Disposition: Home with services Principal Diagnosis: copd ex diarrhea hypotension-resolved Secondary Diagnoses/Problems: 1) Anemia (2) Anxiety (3) Arthritis of left knee (4) Asymptomatic bilateral carotid artery stenosis (5) CAD (coronary artery disease) (6) COPD (chronic obstructive pulmonary disease) (7) Dysphagia (8) GERD (gastroesophageal reflux disease) (9) GI bleed (10) History of Clostridium difficile (11) History of esophageal stricture (12) HTN (hypertension) (13) Hyperlipidemia (14) Intractable nausea and vomiting (15) Leg pain, left (16) Osteoporosis (17) Peripheral vascular disease (18) Trigger finger (19) Weakness (20) Weakness Procedures: cxr: Emphysema. No evidence of focal pulmonary consolidation echo: Small, underfilled LV chamber with normal wall thickness. * Hyperdynamic LV systolic function, EF >70%. * No segmental left ventricular wall motion abnormalities are noted. * Grade I diastolic dysfunction. * No significant valvular pathology. * Small, loculated anterior pericardial effusion without hemodynamic significance. Consultations: pulmonary GI Medication Reconciliation New Medications: Levalbuterol Tartrate (Levalbuterol Tartrate Hfa) 45 Mcg/Act Aer 2 PUFFS INH Q4 PRN for SOB/Wheezing, #1 INHALER 2 Refills Prednisone Tab (Prednisone) 10 Mg Tab 30 MG PO UD, #12 TABS PREDNISONE 30MG PO DAILY X 2 DAYS THEN PREDNISONE 20MG PO DAILY X 2 DAYS THEN PREDNISONE 10MG PO DAILY X 2 DAYS THEN STOP Doxycycline Hyclate (Doxycycline Hyclate) 100 Mg Cap 100 MG PO BID for 3 Days, #6 CAP Guaifenesin (Robitussin) 100 Mg/5 Ml Isi 100 MG PO Q6H PRN for Cough for 7 Days, #1 BTL Ipratropium Fries (Ipratropium Fries) 0.5 Mg/2.5 Ml Nebu 0.5 MG INH BID, #1 INHA 1 Refill Levalbuterol (Levalbuterol HCl) 0.63 Mg/3 Ml Nebu 0.63 MG INH BID, #1 INHA 1 Refill Continued Medications: Alendronate Sodium (Alendronate Sodium) 70 Mg Tab 70 MG PO WEDNESDAY Arformoterol Tartrate (Brovana 15MCG/2ML Soln) Nebu 2 ML NEB BID TAKE WITH PULMICORT Baclofen (Baclofen) 10 Mg Tab 10 MG PO HS PRN for Muscle Pain Budesonide (Pulmicort Respules 0.25MG/2ML) 0.25 Mg/2 Ml Nebu 2 ML NEB BID, EA 2 ml by nebulizer twice a day with Brovana. Calcium Carbonate-Vitamin D (Calcium 600+D) 1 Tab Tab 1 TAB PO BID TAKE THIS MEDICATION WITH FOOD. Clonazepam (Klonopin) 0.5 Mg Tab 0.5 MG PO BID PRN for Anxiety, TAB Clopidogrel Bisulfate (Clopidogrel) 75 Mg Tab 75 MG PO QAM Cyanocobalamin (Vitamin B12 500MCG) 500 Mcg Tab 500 MCG PO QPM, TAB Dexlansoprazole (Dexilant) 60 Mg Cap 60 MG PO DAILY Diltiazem Hcl (Diltiazem Hcl Er) 90 Mg Cap 90 MG PO QAM Docusate Sodium (Docusate Sodium) 100 Mg Cap 100 MG PO BID PRN for Constipation Doxycycline Hyclate (Vibramycin) 100 Mg Cap 100 MG PO BID PRN for COPD Rescue Kit, #20 COPD RESCUE KIT, TAKE DIRECTED UNTIL GONE. Ferrous Sulfate (Ferrous Sulfate) 325 Mg Tab 325 MG PO BID Furosemide (Lasix) 20 Mg Tab 20 MG PO 2XWK PRN for FLUID ACCUMULATION, TAB Gabapentin (Gabapentin) 600 Mg Tab 600 MG PO TID Home O2 Therapy (Oxygen) Gas 3 LITERS NA CONTINOUS Isosorbide Mononitrate Ext Rel (Imdur Ext Rel) 30 Mg Tabcr 30 MG PO QAM Lactobacillus Acidophilus (Lactinex) Tab 1 TAB PO BID, TAB Maalox/Diphen/Visc. [place]/Glyc (Magic Swizzle) 240 Ml Btl 5 ML PO QID GARGLE FOR 30 SECONDS AND SWALLOW, AVOID EATING FOR 20 MINUTES. Mometasone Furoate (Nasal) (Nasonex) 50 Mcg/ Spr 2 SPRAYS MALATHI QAM, BTL Ondansetron Hcl (Zofran) 4 Mg Tab 4 MG PO Q6 PRN for Nausea, TAB Polyethylene Glycol 3350 (Miralax) 1 Pow Pow 17 GM PO DAILY PRN for Constipation DISSOLVE 1 TABLESPOON IN 8 OUNCES OF WATER OR JUICE, ONLY 1 DOSE PER DAY IF NEEDED. Potassium Chloride (Micro-K Ext Rel) 10 Meq Capcr 10 MEQ PO 2XWK PRN for FLUID ACCUMULATION WITH LASIX, CAP Prednisone Tab (Prednisone) 10 Mg Tab 40 MG PO UD PRN for COPD Rescue Pack, TAB COPD RESCUE PACK FOLLOWS: 2 TABLETS BY MOUTH QAM W FOOD U/G Ranitidine Hcl (Zantac) 300 Mg Tab 300 MG PO BID Rosuvastatin Calcium (Crestor) 20 Mg Tab 20 MG PO QPM Sucralfate (Carafate) 1 Gm Tab 1 GM PO HS, TAB Tramadol Hcl (Ultram) 50 Mg Tab 50 MG PO Q6H PRN for Pain, TAB Discontinued Medications: Albuterol Hfa (Ventolin Hfa) 200 Puffs/09010 Mcg Aers 2 PUFFS INH Q6H, #1 INHALER Beclomethasone Dipropionate (Qvar) 80 Mcg/ Aer 2 PUFFS INH BID, GM Ipratropium Fries (Atrovent Hfa) 200 Puffs/3400 Mcg Aers 2 PUFFS INH Q4H PRN for Wheezing Admission Information HPI (per Admitting provider): History as per patient, chart review, and family member daughter Katrina [phone] This is a 72 year old F who has history of COPD and has been in recent past on doxycycline and prednisone for COPD symptoms and have more shortness of breath for 3 to 4 days. Patient also reports midsternal chest pain symptoms 3 days ago. She cannot give a good history in the ED as she was receiving nebulizer treatment and shaking of upper extremities. Patient was able to cooperate on physical exam such as sitting up for lung auscultation and speaks in full sentences although sometimes slow with her speech and response to questions. Is oriented to herself, time, and place - appropriately answers questions about her date and home address. Besides breathing and chest discomfort, patient denies other symptoms. Further medical history corroborated with patient 's daughter on the phone. Patient's daughter reports that patient has reactions to steroids such as exacerbating the upper extremity tremors however has needed to take oral steroids before because of COPD treatment. Patient's daughter reports that patient's status is full code status. No reported history of prior intubations. Have also explained to patient and patient's family member that there are elevations in troponin of 0.066 but EKG has been read in the ED as unlikely to be due to myocardial infarction. Patient is unclear whether chest discomfort is pleuritic chest pain or not. Patient's family appears to report some history of GI bleed in the past vs hemorrhoids. Have explained to the patient and patient's family that the main treatment is for respiratory status however due to chest discomfort complaints and mildly elevated troponin, will monitor patient and symptoms on telemetry and trend EKG and troponins for now without starting heparin drip anticoagulation Physical Exam (per Admitting): General Appearance: + mild distress Head: normocephalic, atraumatic Eyes: normal inspection, EOMI, sclerae normal ENT: normal ENT inspection, hearing grossly normal Neck: supple, no adenopathy, no JVD, trachea midline Respiratory/Chest: chest non-tender, lungs clear, + pertinent finding (fair air entry, no expiratory wheezes while on nebulizer treatment) Cardiovascular: no edema, no JVD, no murmur, normal peripheral pulses, + tachycardia Abdomen/GI: normal bowel sounds, non tender, soft, no organomegaly, no pulsatile mass Back: no CVA tenderness, no muscle spasm, normal range of motion, + pertinent finding (some kyphosis of spinal curvature) Extremities/Musculoskelatal: normal inspection, no calf tenderness, no pedal edema, normal range of motion, non-tender Neurologic/Psych: supervisor logging II-XII nml as tested, no motor/sensory deficits, alert , oriented x 3 Skin: normal color, warm/dry, no rash Hospital Course COPD exacerbation CXR no infiltrates/consolidation currently on solumedrol 40mg daily, nebs atc and prn and doxycycline appreciate pulmonary inputs daughter was worried about tremors on steroids or nebs- will monitor changing solumedrol to prednisone improving- continue same for now d/daniel on prednisone taper, alissay cahned nebs to xopenex/ipratropium as patient having tremors mostly from duonebs f/u with pcp elevated troponin of 0.066 On admission EKG: normal sinus, premature atrial contractions, prolonged QT ( QTc of 508) Most;y nstemi from demand ischemia from above troponin trending down asymptomatic echo unremarkable except for small pericardial effusion repeat ekg today unremarkable stable Hypotension mostly from dehydration from diarrhea started on fluids stool for c diff negative diarrhea resolved BP improved stopped fluids hx of oesophageal stricture Gi likes to f/u as out patient Hx of Anemia will f/u labs. hb 10.6 today mild hypokalemia replace HTN on diltiazem, isosorbide stable will monitor discharged home with home health Total time spent on discharge = 35minutes This includes examination of the patient, discharge planning, medication reconciliation, and communication with other providers. Discharge Instructions Discharge Instructions Date of Service Jan 21, 2018. Admission Reason for Admission: Copd Exacerbation, Elevated Troponin Discharge Discharge Diagnosis / Problem: copd ex Discharge Goals Goal(s): Decrease discomfort, Improve function Activity Recommendations Activity Limitations: resume your previous activity . Instructions / Follow-Up Instructions / Follow-Up FOLLOWUP WITH FAMILY DOCTOR ON January AT 9:25AM FOLLOWUP WITH GI FOR OESOPHAGEAL STRICTURE WITH PCP REFERRAL. PLEASE GO THROUGH MEDICATION LIST CAREFULLY. Current Hospital Diet Patient's current hospital diet: Low Fiber Diet Discharge Diet Recommended Diet: Regular Diet Pending Studies Studies pending at discharge: no Medical Emergencies . Who to Call and When: Medical Emergencies: If at any time you feel your situation is an emergency, please call 911 immediately. . Non-Emergent Contact Non-Emergency issues call your: Primary Care Provider . . "Provider Documentation" section prepared by Maurice Ford.
== END 2018-01-21 15:49 | disposition home health service (06) | DRG 190 ==
LOC: EDBD 19:18 → C.EDB 19:18 → C.MED 21:09 → ENRESERV 21:37
PROVIDERS: ADMIT Hospitalist; ATTEND Internal Medicine
DX: J43.9 Emphysema, unspecified (principal); I21.A1 Myocardial infarction type 2; I25.10 Atherosclerotic heart disease of native coronary artery without angina pectoris; K21.9 Gastro-esophageal reflux disease without esophagitis; R79.1 Abnormal coagulation profile; I10 Essential (primary) hypertension; E78.5 Hyperlipidemia, unspecified; M81.0 Age-related osteoporosis without current pathological fracture; I73.9 Peripheral vascular disease, unspecified; F17.200 Nicotine dependence, unspecified, uncomplicated; D64.9 Anemia, unspecified; J84.10 Pulmonary fibrosis, unspecified; R79.89 Other specified abnormal findings of blood chemistry; E87.6 Hypokalemia; Z88.8 Allergy status to other drugs, medicaments and biological substances; Z88.6 Allergy status to analgesic agent

== ENCOUNTER 2022-03-24 16:17 | Inpatient (IN) ==
[2022-03-24] MEDS ORDERED: ALBUT/IPRATROP 3MG/0.5MG NEB 3 ML VIAL NEB STA ×3 (17:07→18:40)
[2022-03-24 17:50] LABS: Basophils # (auto) 0.04 K/uL (0-0.2); Basophils % (auto) 0.8 %; Eosinophils # (auto) 0.29 K/uL (0-0.5); Eosinophils % (auto) 5.7 %; Immature Granulocytes # (auto) 0.01 K/uL (0.00-0.02); Immature Granulocytes % (auto) 0.2 %; Lymphocytes # (auto) 1.19 K/uL (1.2-3.4); Lymphocytes % (auto) 23.5 %; Mean Corpuscular Hemoglobin 32.7 pg (25-34); Mean Corpuscular Volume 105.5 fL (80-100); Mean Platelet Volume 10.5 fL (7.4-10.4); Monocytes # (auto) 0.81 K/uL (0.11-0.59); Neutrophils # (auto) 2.73 K/uL (1.4-6.5); Neutrophils % (auto) 53.8 %; Platelet Count 235 K/uL (130-400); RDW Coefficient of Variation 11.6 % (11.5-14.5); RDW Standard Deviation 44.6 fL (36.4-46.3); Red Blood Count 2.75 M/uL (4.2-5.4); White Blood Count 5.07 K/uL (4.8-10.8)
[2022-03-24 17:57] LABS: Partial Thromboplastin Ratio 0.8; Partial Thromboplastin Time 22.5 Seconds (21.0-31.0); Prothrombin Time 10.3 Seconds (9.0-12.0)
--- NOTE | 2022-03-24 18:12 | XRay Report ---
XR chest 1V portable CLINICAL HISTORY: Shortness of breath COMPARISON STUDY: Chest radiograph December 02, 2019. FINDINGS: Patient is rotated. There is no pneumothorax or pleural effusion. [place] projects over th e right chest. There is emphysema. Calcified granuloma within the right upper lobe is benign. Cardiom ediastinal silhouette is stable. IMPRESSION: No acute cardiopulmonary findings. Emphysema. ACT 112: Negative or not required by law. Electronically signed by: Bismark Martines M.D. 03/24/2022 6:11 PM
[2022-03-24 18:13] LABS: Influenza A virus by PCR Negative (Neg); Influenza B virus by PCR Negative (Neg); RSV by PCR Negative (Neg); SARS CoV2 RNA(COVID-19) InHosp NEGATIVE (Negative)
--- NOTE | 2022-03-24 18:13 | Emergency Department Note ---
History of Present Illness General Chief Complaint: Shortness of Breath/Dyspnea Stated Complaint: SOB Time Seen by Provider: 03/24/22 16:45 History of Present Illness Provider Complaint: shortness of breath and cough Onset (ago): week(s) (1) Severity: moderate Consistency/Duration: + progressively worsening Maximum Pain Intensity: 0 Relieved By: + nothing Exacerbated By: + exertion and + coughing Context: no recent illness, no occurred during exertion, no choking/aspiration, no medication noncompliance, no recent travel or no trauma/injury Known history of: COPD Associated symptoms: + cough, + wheezing, + sputum production and + chest congestion; no chest pain, no pain with inspiration, no fever, no lower extremity pain, no polyuria, no paresthesias, no palpitations, no hemoptysis, no diaphoresis, no syncope, no abdominal pain, no dizziness or no lightheadedness Related Data Home oxygen amount: 4 liters Home Medications Medication Instructions Recorded Confirmed Type Lactobacillus acidoph-L.bulgaricus 1 tab PO BID 08/15/19 03/24/22 History 1 million cell chewable tablet (Lactinex) albuterol sulfate 90 mcg/actuation 2 puff INHALATION BID PRN 08/15/19 03/24/22 History aerosol inhaler (Ventolin HFA) clopidogrel 75 mg tablet (Plavix) 75 mg PO QAM 08/15/19 03/24/22 History cyanocobalamin (vitamin B-12) 500 500 mcg SUBLINGUAL QAM 08/15/19 03/24/22 History mcg sublingual tablet dexlansoprazole 60 mg 60 mg PO QAM 08/15/19 03/24/22 History capsule,biphase delayed release (Dexilant) escitalopram oxalate 5 mg tablet 5 mg PO QAM 08/15/19 03/24/22 History (Lexapro) ferrous sulfate 325 mg (65 mg 325 mg PO BID 08/15/19 03/24/22 History iron) tablet fluticasone propionate 50 2 spray INTRANASAL DAILY PRN 08/15/19 03/24/22 History mcg/actuation nasal spray,suspension (Flonase Allergy Relief) furosemide 20 mg tablet (Lasix) 20 mg PO 2XWK PRN 08/15/19 03/24/22 History gabapentin 600 mg tablet 600 mg PO TID 08/15/19 03/24/22 History (Neurontin) polyethylene glycol 3350 17 gram 17 g PO DAILY PRN 08/15/19 03/24/22 History oral powder packet (Miralax) potassium chloride 10 mEq 10 meq PO UD PRN 08/15/19 03/24/22 History tablet,extended release (K-Tab) tramadol 50 mg tablet (Ultram) 50 mg PO Q6H PRN 08/15/19 03/24/22 History rosuvastatin 20 mg tablet (Crestor) 20 mg PO HS 10/11/19 03/24/22 History arformoterol 15 mcg/2 mL solution 15 mcg INHALATION BID 12/02/19 03/24/22 History for nebulization (Brovana) famotidine 20 mg tablet (Pepcid) 20 mg PO BID 12/02/19 03/24/22 History ipratropium bromide 17 2 puff INHALATION Q4H PRN 12/02/19 03/24/22 History mcg/actuation HFA aerosol inhaler (Atrovent HFA) mometasone 50 mcg/actuation nasal 2 spray INTRANASAL DAILY 12/02/19 03/24/22 History spray (Nasonex) sucralfate 1 gram tablet (Carafate) 1 g PO BID 12/02/19 03/24/22 History pantoprazole 40 mg tablet,delayed 40 mg PO QAM 12/04/19 03/24/22 History release (Protonix) diltiazem HCl 60 mg 60 mg PO QAM 02/17/22 03/24/22 History capsule,extended release 12 hr ondansetron HCl 8 mg tablet 8 mg PO Q8H PRN 02/17/22 03/24/22 History Allergies Allergy/AdvReac Type Severity Reaction Status Date / Time metoclopramide Allergy Severe "lungs Verified 03/24/22 16:37 collapsed" cortisone Allergy Intermediate swelling Verified 03/24/22 16:37 salicylates Allergy Mild caused Verified 03/24/22 16:37 bleeding, can take EC aspirin Corticosteroids AdvReac Intermediate swelling Verified 03/24/22 16:37 (Glucocorticoids) Past Med/Surg History Medical History Anxiety Arthritis CAD (coronary artery disease) F/U DR Angélica MCDONALD Chronic obstructive pulmonary disease OXYGEN 3-4 L/MIN CONTINUOUSLY Diarrhea Difficulty swallowing GERD (gastroesophageal reflux disease) History of anemia History of esophageal dilatation History of GI bleed Hyperlipidemia Hypertension Osteoporosis PVD (peripheral vascular disease) SOB (shortness of breath) on exertion Surgical History H/O carotid endarterectomy R/L H/O hemorrhoidectomy H/O knee surgery H/O vascular surgery RIGHT ILIAC ARTERY STENT PLACEMENT History of appendectomy History of cardiac cath NO STENTS History of cataract surgery R/L History of colonoscopy History of esophagogastroduodenoscopy (EGD) Family History Other No family history of adverse response to anesthesia Social History Smoking Status: Former smoker Cigarettes Per Day: 5-10 CIG a day ADVISED; Second Hand Exposure: No; Hx Alcohol Use: Yes Alcohol type: beer Hx Substance Use: No Preferred Language: Nigerian Communication Ability: Effective Or Director Required: No Beliefs That Will Affect Care: None Current Living Situation: Family Current Living Situation Comment: Lives with daughter Feels Safe at Home: Yes Assistive Devices: Cane, Denture - Upper, Denture - Lower, Oxygen - Continuous and Wheelchair Review of Systems A total of 10 systems reviewed and were otherwise negative Physical Exam Vital Signs: Vital Signs - 24 hr 03/24/22 16:30 03/24/22 17:23 03/24/22 18:40 Temperature 36.8 C Temperature Source Oral Pulse Rate 85 90 Pulse Rate [Apical ] 92 H 94 H Respiratory Rate 23 22 19 Respiratory Effort / Characteristics Short of Breath Spontaneous Respiratory Patter n Regular Blood Pressure 114/57 L Blood Pressure Emily n 76 Pulse Oximetry 100 95 100 Oxygen Delivery Me thod Nasal Cannula Nasal Cannula BiPAP Oxygen Flow Rate 4 4 Fraction of Inspir ed Oxygen 40 Sepsis Recent Feve r Within 48 Hours No Sepsis New/Unexpla ined Change in Men jean pierre Status N/A Sepsis Action Take n by Nursing No Action Required Physical Exam: Physical Exam GENERAL: Cachectic and ill-appearing. HENT: Exam performed. -Head: Normocephalic and atraumatic. -Right Ear: External ear normal. No mastoid tenderness. -Left Ear: External ear normal. No mastoid tenderness. -Mouth/Throat: The oropharynx is clear and moist. No trismus in the jaw. No dental abscesses or uvula swelling. No oropharyngeal exudate or tonsillar abscesses. EYES: Conjunctivae and EOM are normal. Pupils are equal, round, and reactive to light. Right eye exhibits no discharge. Left eye exhibits no discharge. No scleral icterus. NECK: Normal range of motion. Neck supple. No JVD present. No spinous process tenderness present. No carotid bruit present. No rigidity. No tracheal deviation and normal range of motion present. No Brudzinski's sign and no Kernig's sign noted. CV: Normal rate, regular rhythm, normal heart sounds and intact distal pulses. There is no peripheral edema. Palpable radial pulses bue. PULM/CHEST: Tachypneic. Bilateral expiratory wheezes. Bilateral rhonchi. ABD: The abdomen is soft. MUSC/SKEL: Normal range of motion. There is no peripheral edema, tenderness or deformity. NEURO: She is alert and oriented to person, place, and time. She has normal strength. No cranial nerve deficit or sensory deficit. Course Course 1644: The patient was evaluated in room C5. A complete history and physical exam was performed Cardiac monitoring: An order was placed for continuous cardiac monitoring. The monitor shows a rate of 90 with sinus rhythm 1857: Vital signs stable on supplemental oxygen. Labs show a venous PCO2 of 6. The patient's venous pH is 7.34 and appears to be compensated with a bicarb level of 45 anion gap of 1. Chest x-ray is negative. After 2 DuoNeb's patient is still wheezing. Third DuoNeb will be ordered through BiPAP which we ordered for the patient. Steroids ordered for the patient. COVID-negative. If the patient is unable to tolerate BiPAP will consider switching the patient to high flow nasal cannula. Discussed the case with Kalyani fernandez and Dr. Mag Santamaria hospitalist team who will admit the patient. 0: Patient would not tolerate BiPAP. Patient switched to high flow nasal cannula. Administered Medications Discontinued Medications Albuterol (Albut/Ipratrop 3mg/0.5mg Neb 3 Ml Vial) 3 ml NEB NOW STA; Protocol Stop: 03/24/22 17:08 Last Admin: 03/24/22 17:22 Dose: 3 ml Documented by: [id number] Albuterol (Albut/Ipratrop 3mg/0.5mg Neb 3 Ml Vial) 3 ml NEB NOW STA; Protocol Stop: 03/24/22 17:54 Last Admin: 03/24/22 18:20 Dose: 3 ml Documented by: [id number] Albuterol (Albut/Ipratrop 3mg/0.5mg Neb 3 Ml Vial) 3 ml NEB NOW STA; Protocol Stop: 03/24/22 18:41 Last Admin: 03/24/22 19:10 Dose: 3 ml Documented by: [id number] Methylprednisolone (Methylprednisolone 125 Mg/2 Ml Vial) 125 mg IV NOW STA Stop: 03/24/22 18:41 Last Admin: 03/24/22 18:57 Dose: 125 mg Documented by: [id number] Medical Decision Making Laboratory Data Result diagrams: 03/24/22 17:24 03/24/22 17:24 Lab Results 03/24/22 03/24/22 03/24/22 Range/Units 17:23 17:24 17:24 WBC 5.07 (4.8-10.8) K/uL RBC 2.75 L (4.2-5.4) M/uL Hgb 9.0 L (12.0-16.0) g/dL Hct 29.0 L (37-47) % MCV 105.5 H (80-100) fL MCH 32.7 (25-34) pg MCHC 31.0 L (32-36) g/dL RDW Std Deviation 44.6 (36.4-46.3) fL RDW Coeff of Renetta 11.6 (11.5-14.5) % Plt Count 235 (130-400) K/uL MPV 10.5 H (7.4-10.4) fL Immature Gran % (Auto) 0.2 % Neut % (Auto) 53.8 % Lymph % (Auto) 23.5 % [place] % (Auto) 16.0 % Eos % (Auto) 5.7 % Baso % (Auto) 0.8 % Neut # (Auto) 2.73 (1.4-6.5) K/uL Lymph # (Auto) 1.19 L (1.2-3.4) K/uL [place] # (Auto) 0.81 H (0.11-0.59) K/uL Eos # (Auto) 0.29 (0-0.5) K/uL Baso # (Auto) 0.04 (0-0.2) K/uL Immature Gran # (Auto) 0.01 (0.00-0.02) K/uL PT 10.3 (9.0-12.0) Seconds INR 1.0 (0.9-1.1) APTT 22.5 (21.0-31.0) Seconds PTT Ratio 0.8 VBG pH (7.36-7.41) VBG pCO2 (38-50) mmHg VBG pO2 mmHg VBG HCO3 mmol/L VBG O2 Saturation % VBG Base Excess mEq/L Barometric Pressure mm/Hg Sodium (136-145) mmol/L Potassium (3.5-5.1) mmol/L Chloride (98-107) mmol/L Carbon Dioxide (21-32) mmol/L Anion Gap (3-11) BUN (6-23) mg/dl Creatinine (0.6-1.2) mg/dl Est Cr Clr Drug Dosing ml/min Est GFR ( Amer) ml/min Est GFR (Non-Af Amer) ml/min BUN/Creatinine Ratio (10-20) Glucose (70-99(Fasting)) mg/dl Calcium (8.5-10.1) mg/dl Magnesium (1.7-2.4) mg/dl Troponin I High Sens (0-14) pg/ml B-Natriuretic Peptide (0-100) pg/ml SARS-CoV-2 (PCR) NEGATIVE (Negative) Influenza Type A (PCR) Negative (Neg) Influenza Type B (PCR) Negative (Neg) RSV (RT-PCR) Negative (Neg) 03/24/22 03/24/22 03/24/22 Range/Units 17:24 18:08 18:08 WBC (4.8-10.8) K/uL RBC (4.2-5.4) M/uL Hgb (12.0-16.0) g/dL Hct (37-47) % MCV (80-100) fL MCH (25-34) pg MCHC (32-36) g/dL RDW Std Deviation (36.4-46.3) fL RDW Coeff of Renetta (11.5-14.5) % Plt Count (130-400) K/uL MPV (7.4-10.4) fL Immature Gran % (Auto) % Neut % (Auto) % Lymph % (Auto) % [place] % (Auto) % Eos % (Auto) % Baso % (Auto) % Neut # (Auto) (1.4-6.5) K/uL Lymph # (Auto) (1.2-3.4) K/uL [place] # (Auto) (0.11-0.59) K/uL Eos # (Auto) (0-0.5) K/uL Baso # (Auto) (0-0.2) K/uL Immature Gran # (Auto) (0.00-0.02) K/uL PT (9.0-12.0) Seconds INR (0.9-1.1) APTT (21.0-31.0) Seconds PTT Ratio VBG pH 7.34 L (7.36-7.41) VBG pCO2 86 H (38-50) mmHg VBG pO2 22 mmHg VBG HCO3 45 mmol/L VBG O2 Saturation < 60.0 % VBG Base Excess 16.5 mEq/L Barometric Pressure 731.5 mm/Hg Sodium 135 L (136-145) mmol/L Potassium 3.5 (3.5-5.1) mmol/L Chloride 89 L (98-107) mmol/L Carbon Dioxide 45 H* (21-32) mmol/L Anion Gap 1 L (3-11) BUN 6 (6-23) mg/dl Creatinine 0.40 L (0.6-1.2) mg/dl Est Cr Clr Drug Dosing 80.0 ml/min Est GFR ( Amer) 116.4 ml/min Est GFR (Non-Af Amer) 100.5 ml/min BUN/Creatinine Ratio 15.0 (10-20) Glucose 109 H (70-99(Fasting)) mg/dl Calcium 8.9 (8.5-10.1) mg/dl Magnesium 1.8 (1.7-2.4) mg/dl Troponin I High Sens 4.9 (0-14) pg/ml B-Natriuretic Peptide 66 (0-100) pg/ml SARS-CoV-2 (PCR) (Negative) Influenza Type A (PCR) (Neg) Influenza Type B (PCR) (Neg) RSV (RT-PCR) (Neg) Imaging Data Radiologist's Impression: Chest X-Ray 03/24/22 16:55 XR chest 1V portable CLINICAL HISTORY: Shortness of breath COMPARISON STUDY: Chest radiograph December 02, 2019. FINDINGS: Patient is rotated. There is no pneumothorax or pleural effusion. [place] projects over the right chest. There is emphysema. Calcified granuloma within the right upper lobe is benign. Cardiomediastinal silhouette is stable. IMPRESSION: No acute cardiopulmonary findings. Emphysema. ACT 112: Negative or not required by law. Electronically signed by: Bismark Martines M.D. 03/24/2022 6:11 PM ECG Data Interpretation: Sinus rhythm with a rate of 82. MI QRS and QTc intervals are within normal limits. No ST elevation or ST depression. [facility] Narrative 1645: The patient was evaluated in room C5. A complete history and physical exam was performed Cardiac monitoring: An order was placed for continuous cardiac monitoring. The monitor shows a rate of 90 with sinus rhythm 1858: Vital signs stable on supplemental oxygen. Labs show a venous PCO2 of 6. The patient's venous pH is 7.34 and appears to be compensated with a bicarb level of 45 anion gap of 1. Chest x-ray is negative. After 2 DuoNeb's patient is still wheezing. Third DuoNeb will be ordered through BiPAP which we ordered for the patient. Steroids ordered for the patient. COVID-negative. If the patient is unable to tolerate BiPAP will consider switching the patient to high flow nasal cannula. Discussed the case with Kalyani fernandze and Dr. Mag Santamaria hospitalist team who will admit the patient. 1920: Patient would not tolerate BiPAP. Patient switched to high flow nasal cannula. Impression & Plan COPD (chronic obstructive pulmonary disease) Critical Care Time Critical Care Time: Yes Total Critical Care Time: 77 I have personally spent greater than 77 minutes of critical care time in the direct management of this patient. This includes bedside care, interpretation of diagnostic studies, and testing, discussion with consultants, patient, and family members, and other required patient management activities. This 77 minutes is in excess of all separately billable procedures. Discharge Plan Visit Data Chief Complaint: Shortness of Breath/Dyspnea Stated Complaint: SOB ED Provider: Jesus Castle Discharge Problem: COPD (chronic obstructive pulmonary disease) Patient Disposition: Admitted As Inpatient Forms Stand Alone Forms: My [facility] Prescriptions Prescriptions: No Action albuterol sulfate [Ventolin HFA] 90 mcg/actuation Hfa Aerosol Inhaler 2 puff INHALATION BID PRN (Reason: Wheezing) RF: 0 gabapentin [Neurontin] 600 mg Tablet 600 mg PO TID RF: 0 polyethylene glycol 3350 [Miralax] 17 gram Powder In Packet 17 g PO DAILY PRN (Reason: Constipation) RF: 0 potassium chloride [K-Tab] 10 mEq Tablet Extended Release 10 meq PO UD PRN (Reason: Edema) RF: 0 clopidogrel [Plavix] 75 mg Tablet 75 mg PO QAM RF: 0 tramadol [Ultram] 50 mg Tablet 50 mg PO Q6H PRN (Reason: Pain) RF: 0 ferrous sulfate 325 mg (65 mg iron) Tablet 325 mg PO BID RF: 0 furosemide [Lasix] 20 mg Tablet 20 mg PO 2XWK PRN (Reason: Edema) RF: 0 fluticasone propionate [Flonase Allergy Relief] 50 mcg/actuation Spra y,Suspension 2 spray INTRANASAL DAILY PRN (Reason: Congestion) RF: 0 escitalopram oxalate [Lexapro] 5 mg Tablet 5 mg PO QAM RF: 0 Lactinex 1 million cell Tablet,Chewable 1 tab PO BID RF: 0 dexlansoprazole [Dexilant] 60 mg Capsule,Biphase Delayed Releas 60 mg PO QAM RF: 0 cyanocobalamin (vitamin B-12) 500 mcg Tablet, Sublingual 500 mcg SUBLINGUAL QAM RF: 0 famotidine [Pepcid] 20 mg tablet 20 mg PO BID RF: 0 sucralfate [Carafate] 1 gram tablet 1 g PO BID RF: 0 mometasone [Nasonex] 50 mcg/actuation Ivel,Non-Aerosol 2 spray INTRANASAL DAILY RF: 0 Atrovent HFA 17 mcg/actuation HFA aerosol inhaler 2 puff INHALATION Q4H PRN (Reason: Shortness Of Breath Or Wheezing) RF: 0 arformoterol [Brovana] 15 mcg/2 mL Solution For Nebulization 15 mcg inhalation BID RF: 0 pantoprazole [Protonix] 40 mg tablet,delayed release (DR/EC) 40 mg PO QAM RF: 0 rosuvastatin [Crestor] 20 mg Tablet 20 mg PO HS RF: 0 diltiazem HCl 60 mg Capsule,Extended Release 12 Hr 60 mg PO QAM RF: 0 ondansetron HCl 8 mg Tablet 8 mg PO Q8H PRN (Reason: Nausea) RF: 0 Referrals Referrals: Nancy Mcdonald DO [Primary Care Provider] - Discharge Problem: COPD (chronic obstructive pulmonary disease) Qualifiers: COPD type: COPD with acute exacerbation Qualified Code(s): J44.1 - Chronic obstructive pulmonary disease with (acute) exacerbation
[2022-03-24 18:23] LABS: Calcium 8.9 mg/dl (8.5-10.1); Est GFR (African American) 116.4 ml/min; Est GFR (Non-African American) 100.5 ml/min; Magnesium 1.8 mg/dl (1.7-2.4); Troponin I High Sensitivity 4.9 pg/ml (0-14)
[2022-03-24 18:33] LABS: Base Excess VBG 16.5 mEq/L; HCO3 VBG 45 mmol/L; PCO2 VBG 86 mmHg (38-50); PO2 VBG 22 mmHg; pH VBG 7.34 (7.36-7.41)
[2022-03-24 18:37] LABS: Oxygen Saturation VBG < 60.0 %
[2022-03-24 18:37] LABS: Potassium 3.5 mmol/L (3.5-5.1)
[2022-03-24] MEDS ORDERED: methylPREDNISolone 125 MG/2 ML VIAL IV STA (18:40)
--- NOTE | 2022-03-24 21:24 | History and Physical Report ---
DATE OF ADMISSION: 03/24/2022. CHIEF COMPLAINT: Shortness of breath, cough. HISTORY OF PRESENT ILLNESS: This is a 76-year-old female with past medical history significant for COPD, chronic bronchitis, emphysema, chronic hypoxic respiratory failure with 4 liters of oxygen all the time, hyperlipidemia, pulmonary granuloma, atherosclerotic cardiovascular disease, peripheral vascular disease, history of sinus tachycardia, hypertension, history of bilateral carotid occlusions, GERD, Schatzki's ring, senile osteoporosis, idiopathic torsion dystonia, tobacco use disorder, anxiety state, comes because of shortness of breath getting worse lately and coughing with yellowish-whitish phlegm. Denies any fevers. In the ER, when she came in, she was placed on BiPAP. Currently, she is on high-flow oxygen, saturating okay, seems comfortable. Denies any chest pain. No nausea, no vomiting, no abdominal pain. Appetite is not that great. She says next month she is going to have her esophagus dilated, currently eating only soft bites of mashed up food. Denies any headache. Vision is okay. No runny nose, no sore throat. Has complaints of abdominal discomfort. Normal bowel and bladder movements. No swelling in the legs. Lives with daughter. ALLERGIES: METOCLOPRAMIDE, CORTISONE, SALICYLATES, GLUCOCORTICOIDS. PAST MEDICAL HISTORY: As mentioned above. PAST SURGICAL HISTORY: Left heart catheterization, colonoscopy, EGDs, EGD with transendoscopic dilatation, external hemorrhoidectomy, right common iliac artery stent and right external iliac artery angioplasty, left knee surgery, laparoscopic hysterectomy, appendectomy, removal of ovaries, knee repair cruciate ligament, right carotid endarterectomy, left carotid endarterectomy, total abdominal hysterectomy with removal of tubes. MEDICATIONS: The patient is on albuterol 2 puffs inhalation b.i.d. p.r.n., Brovana 15 mcg inhalation b.i.d., Plavix 75 mg p.o. a.m., vitamin B12 500 mcg sublingually IM, Dexilant 60 mg p.o. a.m., diltiazem 60 mg p.o. a.m., Lexapro 5 mg p.o. a.m., Pepcid 20 mg p.o. b.i.d., ferrous sulfate 325 mg p.o. b.i.d., Flonase 2 sprays intranasal daily p.r.n., Lasix 20 mg p.o. 2 times a week p.r.n., gabapentin 600 mg p.o. t.i.d., Lactinex 1 tablet p.o. b.i.d., Zofran 8 mg p.o. q.8 hours p.r.n., Protonix 40 mg p.o. a.m., MiraLax 17 g p.o. daily p.r.n., potassium chloride 20 mEq p.o. p.r.n., Crestor 20 mg p.o. at bedtime, sucralfate 1 gram p.o. b.i.d., tramadol 50 mg p.o. q.6 hours p.r.n. FAMILY HISTORY: Significant for brother has [place]. SOCIAL HISTORY: , lives with daughter. Currently smoking half pack a day, smoked for 64 years. Alcohol 1 to 2 beers daily. No drug use. REVIEW OF SYSTEMS: As per HPI. Rest of review of systems is negative. PHYSICAL EXAMINATION: GENERAL: The patient is thin and frail, somewhat shaky. VITAL SIGNS: Temperature 36.8, pulse 103, respiratory rate 19, blood pressure 119/50, oxygen 100% on high-flow oxygen. HEENT: Oral mucosa dry. NECK: No JVD, no neck masses. CARDIOVASCULAR: S1 and S2 heard, tachycardia. No murmurs. RESPIRATORY SYSTEM: Normal AP diameter. No accessory muscle use. Diminished breath sounds. Mild occasional expiratory wheezing. ABDOMEN: Soft. Bowel sounds are present, nontender, no distention. CENTRAL NERVOUS SYSTEM: Cranial nerves II-XII grossly intact, nonfocal. EXTREMITIES: No edema, no erythema. LABORATORIES: WBC 5.07, hemoglobin 9, hematocrit 29, platelets 235. PT 10.3, INR 1, APTT 22.5. Venous blood gas; pH of 7.34, pCO2 of 86, pO2 of 22, bicarbonate 45. Sodium 135, potassium 3.5, chloride 89, CO2 45, BUN 6, creatinine 0.4, serum glucose 109, calcium 8.9, magnesium 1.8. Troponin I high sensitivity 4.9. BNP 66. SARS-CoV-2 PCR negative. Influenza A and B PCR negative. RSV PCR negative. Chest x-ray: No active cardiopulmonary findings, emphysema. EKG: Normal sinus rhythm at a rate of 82. ASSESSMENT AND PLAN: This 76-year-old female presents with chronic obstructive pulmonary disease exacerbation. 1. Chronic obstructive pulmonary disease exacerbation, acute on chronic respiratory failure, uses 4 liters of oxygen all the time, requiring increasing oxygen needs. Chest x-ray, no obvious infiltrates. On examination, decreased breath sounds and occasional wheezing. Still smoking half pack a day and vaping. Received nebulizers and steroids in the Emergency Room. Initially she was placed on BiPAP, currently on high flow. She said she could not tolerate the BiPAP well. We will continue with the Solu-Medrol 40 t.i.d. and nebulizers around the clock and p.r.n. and azithromycin 5-day course. Closely monitor in telemetry floor. If not getting better, we will consult pulmonary. 2. History of hyperlipidemia, on statin. 3. History of peripheral vascular disease, on Plavix and statin. 4. Gastroesophageal reflux disease, on Dexilant and Protonix. The patient says she is supposed to get dilatation of her esophagus next month. We will place her on soft diet. We will consult speech therapy. 5. Depression, on Lexapro. 6. Anemia, hemoglobin of 9, on iron supplements. 7. Hypertension, on diltiazem. We will monitor. 8. Deep venous thrombosis prophylaxis. Place her on heparin subcutaneously. DISPOSITION: Closely monitor in the tele floor. Level 1, full code. Expect to discharge home and follow with family doctor. Job ID: [id number]
[2022-03-24] MEDS ORDERED: traMADol HCL 50 MG TABLET PO PRN (22:47)
[2022-03-24] MEDS ORDERED: POTASSIUM CHLORIDE 10 MEQ TABCR PO PRN (22:47)
[2022-03-24] MEDS ORDERED: IPRATROPIUM BROMIDE HFA INHALER INH PRN (22:47)
[2022-03-24] MEDS ORDERED: ALBUTEROL HFA 8 GM INHALER INH PRN (22:47)
[2022-03-24] MEDS ORDERED: NITROGLYCERIN SL 0.4 MG/TAB TAB SL PRN (22:47)
[2022-03-24] MEDS ORDERED: [UNRECOGNIZED DRUG - OTHER] PO SCH (22:47)
[2022-03-24] MEDS ORDERED: FUROSEMIDE 20 MG TAB PO PRN (22:47)
[2022-03-24] MEDS ORDERED: POLYETHYLENE (MIRALAX) 17 GM PACK PO PRN (22:47)
[2022-03-24] MEDS ORDERED: FLUTICASONE PROPIONATE NA SPR 16 GM BTL PRN (22:47)
[2022-03-24] MEDS ORDERED: AZITHROMYCIN 250 MG TAB PO STA (23:22)
[2022-03-24] MEDS ORDERED: ONDANSETRON 4 MG OD TAB PO PRN (23:45)
[2022-03-25] MEDS: IPRATROPIUM BROMIDE NEB SOLN 0.02% 2.5 ML VIAL INH SCH ×4 (00:22→19:26)
[2022-03-25] MEDS: LEVALBUTEROL 1.25MG/0.5ML NEB INH SCH ×4 (00:22→19:25)
[2022-03-25] MEDS ORDERED: XOPENEX/ATROVENT 1.25mg/0.5MG NEB COMBO NEB SCH (01:00)
[2022-03-25] MEDS: FAMOTIDINE 20 MG TAB PO SCH ×3 (01:04→21:47)
[2022-03-25] MEDS: SUCRALFATE 1 GM TAB PO SCH ×3 (01:05→21:48)
[2022-03-25] MEDS: GABAPENTIN 600 MG TAB PO SCH ×4 (01:05→21:48)
[2022-03-25] MEDS: HEPARIN SOD 5,000 UNIT/0.5 ML VIAL SQ SCH ×4 (01:08→21:48)
[2022-03-25] MEDS: ROSUVASTATIN CALCIUM 20 MG TAB PO SCH ×2 (01:22→21:48)
[2022-03-25 05:12] LABS: Hematocrit (blood only) 30.5 % (37-47); Hemoglobin 9.4 g/dL (12.0-16.0); Lymphocytes # (auto) 0.29 K/uL (1.2-3.4); Lymphocytes % (auto) 11.4 %; Mean Corpuscular Hemoglobin 32.3 pg (25-34); Mean Corpuscular Hgb Conc 30.8 g/dL (32-36); Mean Corpuscular Volume 104.8 fL (80-100); Mean Platelet Volume 10.2 fL (7.4-10.4); Monocytes # (auto) 0.02 K/uL (0.11-0.59); Monocytes % (auto) 0.8 %; Neutrophils # (auto) 2.24 K/uL (1.4-6.5); Neutrophils % (auto) 87.8 %; Platelet Count 292 K/uL (130-400); RDW Coefficient of Variation 11.5 % (11.5-14.5); RDW Standard Deviation 44.2 fL (36.4-46.3); Red Blood Count 2.91 M/uL (4.2-5.4); White Blood Count 2.55 K/uL (4.8-10.8)
[2022-03-25 05:43] LABS: BUN Creatinine Ratio 17.5 (10-20); Calcium 8.8 mg/dl (8.5-10.1); Est GFR (African American) 116.4 ml/min; Est GFR (Non-African American) 100.5 ml/min; Magnesium 1.8 mg/dl (1.7-2.4); Potassium 4.6 mmol/L (3.5-5.1)
[2022-03-25] MEDS: FORMOTEROL 20 MCG/2 ML VIAL INH SCH ×3 (06:48→20:29)
[2022-03-25] MEDS: ESCITALOPRAM OXALATE 10 MG TAB PO SCH (08:24)
[2022-03-25] MEDS: PANTOprazole 40 MG TAB PO SCH (08:25)
[2022-03-25] MEDS: FERROUS SULFATE 325 MG TAB PO SCH ×2 (08:25→17:11)
[2022-03-25] MEDS: CLOPIDOGREL BISULFATE 75 MG TAB PO SCH (08:26)
[2022-03-25] MEDS: methylPREDNISolone 40 MG in SYRINGE 0 ML IV SCH ×3 (08:33→21:48)
[2022-03-25] MEDS ORDERED: [UNRECOGNIZED DRUG - REMARK] INTNAS SCH (09:00)
[2022-03-25] MEDS ORDERED: CYANOCOBALAMIN 500 MCG SL SCH (09:00)
[2022-03-25] MEDS ORDERED: PANTOprazole 40 MG TAB PO SCH (09:00)
[2022-03-25] MEDS ORDERED: LORazepam 0.5 MG TAB PO ONE (09:27)
[2022-03-25] MEDS: NICOTINE 21 MG/24 HR TDSY TD SCH (10:02)
--- NOTE | 2022-03-25 12:22 | Gastrointestinal Consultation ---
Date of Consultation March 25, 2022 Assessment & Plan (1) Dysphagia: Will arrange for OP EGD in approx one month, after respiratory status is improved. EGD to r/o Schatzki ring, esophagitis. No plans for IP GI procedure. Would continue with slippery diet. Supervising Physician Co-Signing Physician Notes Attending attestation I have seen, examined this patient, and agree with the findings and above by our mid-level provider DIAMOND Zapata, with the following additions: Chronic dysphagia, unchanged. Now with worsened respiratory status. No role for endosocpy acutely, will follow up as outpt Tardive dyskinesia certainly contributory History of Present Illness Reason for Consultation: Dysphagia Requesting Physician: Dr. Ford Attending Physician: Evens Charlton MD History of Present Illness Ms. Ana Nichols is a 76 yr old female pt of Dr. Nancy Leonardo with a hx of COPD, chronic hypoxic respiratory failure on 4L O2 at home, hyperlipidemia, pulmonary granuloma, CAD, PVD, Sinus Tachinus tachycardia, hypertension, history of bilateral carotid occlusions, GERD, Schatzki's ring, senile osteoporosis, idiopathic tardive dystonia, smoker, anxiety. She presented to the ED today for respiratory failure. GI is consulted for dysphagia. She follows in OP GI clinic for dysphagia thought secondary to esophageal dysmotility and is maintained on a slippery diet. She tells us that there is no change to her dysphagia. Her most recent EGD was for this problem in 2019 with a mild Schatzki ring which was dilated. She has marked gastroparesis. A NM gastric emptying study in 2009 show a half life of > 5hrs. She also has GERD but stopped all acid reducing meds as she felt they were not helpful. She was seen/examined in the ED where she was awake, alert, oriented, experiencing significant abnormal/involuntary motion/shaking as seen in tardive dyskinesia or other motion disorders. She was able to swallow eggs for breakfast (according to her RN). She had some SOB on exam as well being on high flow O2 by [place] but was saturating well. XCR w w/o acute findings. Allergies Allergy/AdvReac Type Severity Reaction Status Date / Time metoclopramide Allergy Severe "lungs Verified 03/24/22 16:37 collapsed" cortisone Allergy Intermediate swelling Verified 03/24/22 16:37 salicylates Allergy Mild caused Verified 03/24/22 16:37 bleeding, can take EC aspirin Corticosteroids AdvReac Intermediate swelling Verified 03/24/22 16:37 (Glucocorticoids) Home Medications Medication Instructions Recorded Confirmed Type Lactobacillus acidoph-L.bulgaricus 1 tab PO BID 08/15/19 03/24/22 History 1 million cell chewable tablet (Lactinex) albuterol sulfate 90 mcg/actuation 2 puff INHALATION BID PRN 08/15/19 03/24/22 History aerosol inhaler (Ventolin HFA) clopidogrel 75 mg tablet (Plavix) 75 mg PO QAM 08/15/19 03/24/22 History cyanocobalamin (vitamin B-12) 500 500 mcg SUBLINGUAL QAM 08/15/19 03/24/22 History mcg sublingual tablet dexlansoprazole 60 mg 60 mg PO QAM 08/15/19 03/24/22 History capsule,biphase delayed release (Dexilant) escitalopram oxalate 5 mg tablet 5 mg PO QAM 08/15/19 03/24/22 History (Lexapro) ferrous sulfate 325 mg (65 mg 325 mg PO BID 08/15/19 03/24/22 History iron) tablet fluticasone propionate 50 2 spray INTRANASAL DAILY PRN 08/15/19 03/24/22 History mcg/actuation nasal spray,suspension (Flonase Allergy Relief) furosemide 20 mg tablet (Lasix) 20 mg PO 2XWK PRN 08/15/19 03/24/22 History gabapentin 600 mg tablet 600 mg PO TID 08/15/19 03/24/22 History (Neurontin) polyethylene glycol 3350 17 gram 17 g PO DAILY PRN 08/15/19 03/24/22 History oral powder packet (Miralax) potassium chloride 10 mEq 10 meq PO UD PRN 08/15/19 03/24/22 History tablet,extended release (K-Tab) tramadol 50 mg tablet (Ultram) 50 mg PO Q6H PRN 08/15/19 03/24/22 History rosuvastatin 20 mg tablet (Crestor) 20 mg PO HS 10/11/19 03/24/22 History arformoterol 15 mcg/2 mL solution 15 mcg INHALATION BID 12/02/19 03/24/22 History for nebulization (Brovana) famotidine 20 mg tablet (Pepcid) 20 mg PO BID 12/02/19 03/24/22 History ipratropium bromide 17 2 puff INHALATION Q4H PRN 12/02/19 03/24/22 History mcg/actuation HFA aerosol inhaler (Atrovent HFA) mometasone 50 mcg/actuation nasal 2 spray INTRANASAL DAILY 12/02/19 03/24/22 History spray (Nasonex) sucralfate 1 gram tablet (Carafate) 1 g PO BID 12/02/19 03/24/22 History pantoprazole 40 mg tablet,delayed 40 mg PO QAM 12/04/19 03/24/22 History release (Protonix) diltiazem HCl 60 mg 60 mg PO QAM 02/17/22 03/24/22 History capsule,extended release 12 hr ondansetron HCl 8 mg tablet 8 mg PO Q8H PRN 02/17/22 03/24/22 History clonazepam 0.5 mg tablet 0.5 mg PO TID 03/25/22 03/25/22 History Patient History Medical History Anxiety Arthritis CAD (coronary artery disease) F/U DR Angélica LEONARDO Chronic obstructive pulmonary disease OXYGEN 3-4 L/MIN CONTINUOUSLY Diarrhea Difficulty swallowing GERD (gastroesophageal reflux disease) History of anemia History of esophageal dilatation History of GI bleed Hyperlipidemia Hypertension Osteoporosis PVD (peripheral vascular disease) SOB (shortness of breath) on exertion Surgical History H/O carotid endarterectomy R/L H/O hemorrhoidectomy H/O knee surgery H/O vascular surgery RIGHT ILIAC ARTERY STENT PLACEMENT History of appendectomy History of cardiac cath NO STENTS History of cataract surgery R/L History of colonoscopy History of esophagogastroduodenoscopy (EGD) Family History Other No family history of adverse response to anesthesia Social History Smoking Status: Current every day smoker Cigarettes Per Day: 5-10 CIG a day ADVISED; Second Hand Exposure: No; Hx Alcohol Use: Yes Alcohol type: beer Hx Substance Use: No Preferred Language: [place] Communication Ability: Effective Cemetery Worker Required: No Beliefs That Will Affect Care: None marital status: / Current Living Situation: Alone Current Living Situation Comment: Lives with daughter Feels Safe at Home: Yes Assistive Devices: Cane, Oxygen - Continuous and Walker Review of Systems Review of Systems: ROS: Gen: + tremors, repetitive motions of face, arms, legs, torso. + weakness, + david ght loss, denies fevers Eyes: No eye redness, or pain, no recent vision changes Resp: + cough, SOB Cardio: + burning chest pain. No palpitations/irregular beats, no chest pain GI: No abdominal pain, no nausea/vomiting : Denies pain on urination Skin: No jaundice, itching or new rashes Physical Exam Constitutional: + ill appearing (chronically), + thin and cooperative Eyes: PERRL, conjunctivae normal, anicteric sclerae Neck: trachea midline, no thyromegaly Respiratory: + respiratory distress, + uses accessory muscles, + cough and + nasal flaring; no audible wheezes Auscultation: + diminished lung sounds, + crackles and + wheezes (scattered) Cardiovascular: RRR, no murmur, no edema Gastrointestinal (Abdomen): normal bowel sounds, soft, nontender, no hepatosplenomegaly Musculoskeletal: severe tremor, repetitive motions typical of TD Skin: no rashes, warm and dry normal turgor and + pallor Neurologic: PERRL, EOMI, accommodation nl, no face palsy, no dysarthria awake; not confused Psychiatric: A+Ox3, euthymic affect Orientation: alert, oriented x 3 and cooperative Results & Data ([facility]) Vital Signs (Past 12 Hours) Vital Signs Pulse Pulse Resp BP BP Pulse Ox 03/25/22 12:09 100 H 24 90 03/25/22 11:55 106 H 24 146/98 H 89 L 03/25/22 08:00 113 H 28 H 116/62 93 03/25/22 06:48 90 20 96 03/25/22 06:00 78 14 114/53 L 98 03/25/22 05:00 81 17 129/61 100 03/25/22 04:00 79 13 119/60 100 03/25/22 03:00 80 14 120/58 L 100 03/25/22 02:00 81 13 101/54 L 100 06/01/22 00:44 79 18 100 03/25/22 00:35 77 14 110/51 L 99 03/25/22 00:20 82 16 117/58 L 100 Laboratory Results WBC 2.5, Hb 9.4, Hct 30.5, Platelets 292, INR 1.0, Na 135, K 4.6, CL 90, CO2 44, BUN 7, Cr 0.4, Glucose 154. Diagnostic Findings CXR: No acute cardiopulmonary findings. Emphysema.
[2022-03-25] MEDS: clonazePAM 0.5 MG TAB PO SCH ×2 (13:11→21:47)
--- NOTE | 2022-03-25 20:34 | Hospitalist Progress Note ---
Date of Service March 25, 2022 Assessment & Plan (1) COPD (chronic obstructive pulmonary disease): Plan: Patient is a 76 yr female presents with chronic obstructive pulmonary disease exacerbation. Acute COPD Exacerbation Acute on chronic respiratory failure with hypoxia Chronic oxygen dependency: 4L at baseline --CXR:No acute cardiopulmonary findings. Emphysema. Ongoing tobacco use disorder Counseled to quit smoking Initially was placed on BiPAP Continue Solu-Medrol, nebulizers, azithromycin Continue supplemental oxygen as needed Consider pulmonary evaluation if no improvement Nicotine patch Dysphagia Appreciate GI input EGD as outpatient Speech Eval Hyperlipidemia on statin PVD on Plavix and statin. GERD on Dexilant and Protonix Depression on Lexapro Anemia of chronic disease Monitor CBC on iron supplements. Hypertension on diltiazem DVT Px: Heparin SQ Code Status Full code Admission and Anticipated Discharge Date Admission Date: March 24, 2022 Subjective Patient is seen and examined at bedside Dyspnea, cough slowly improving Eager to get discharged Denies any chest pain, dizziness, nausea, abdominal pain Offers no other complaints Review of Systems Review of Systems: All systems reviewed & are unremarkable except as noted in Subjective Physical Exam Physical Exam: Physical Exam: Vitals signs as noted above General Appearance:Thin, frail, Chronic ill, +Tremors, no apparent distress Head: normocephalic, Atraumatic Eyes: normal inspection, EOMI Neck: supple, Trachea midline Respiratory/Chest: Diminished coarse breath sounds, No accessory muscle use Cardiovascular: S1, S2, No murmur Abdomen/GI:Soft, Non tender, Bowel sounds present Extremities/Musculoskeletal:normal inspection, no edema Neurologic/Psych:AAOX3, grossly no focal neurological deficits Skin: normal color, warm Results & Data Results & Data ([facility]) Vital Signs (Past 12 Hours) Vital Signs Pulse Resp BP Pulse Ox 03/25/22 19:26 100 H 24 98 03/25/22 15:56 93 H 22 103/72 89 L 03/25/22 14:07 98 03/25/22 13:54 94 H 22 120/47 L 98 03/25/22 12:09 100 H 24 90 03/25/22 11:55 106 H 24 146/98 H 89 L Laboratory Results Short CBC 03/25/22 Range/Units 04:44 WBC 2.55 L (4.8-10.8) K/uL Hgb 9.4 L (12.0-16.0) g/dL Hct 30.5 L (37-47) % Plt Count 292 (130-400) K/uL BMP 03/25/22 04:44 Sodium 135 L Potassium 4.6 D Chloride 90 L Carbon Dioxide 44 H* BUN 7 Creatinine 0.40 L Glucose 154 H Calcium 8.8
[2022-03-25] MEDS: AZITHROMYCIN 250 MG TAB PO SCH (21:47)
[2022-03-26] MEDS: IPRATROPIUM BROMIDE NEB SOLN 0.02% 2.5 ML VIAL INH SCH ×4 (00:03→19:29)
[2022-03-26] MEDS: LEVALBUTEROL 1.25MG/0.5ML NEB INH SCH ×4 (00:04→19:31)
[2022-03-26] MEDS: HEPARIN SOD 5,000 UNIT/0.5 ML VIAL SQ SCH ×3 (06:34→21:16)
[2022-03-26 07:19] LABS: Hematocrit (blood only) 30.5 % (37-47); Hemoglobin 9.8 g/dL (12.0-16.0); Mean Corpuscular Hemoglobin 32.5 pg (25-34); Mean Corpuscular Hgb Conc 32.1 g/dL (32-36); Mean Platelet Volume 10.3 fL (7.4-10.4); Platelet Count 367 K/uL (130-400); RDW Coefficient of Variation 11.9 % (11.5-14.5); RDW Standard Deviation 44.1 fL (36.4-46.3); Red Blood Count 3.02 M/uL (4.2-5.4); White Blood Count 8.19 K/uL (4.8-10.8)
[2022-03-26] MEDS: FORMOTEROL 20 MCG/2 ML VIAL INH SCH ×2 (07:26→19:32)
[2022-03-26 07:39] LABS: BUN Creatinine Ratio 20.8 (10-20); Creatinine Clr Calc Pharmacy 59.8 ml/min; Est GFR (African American) 109.7 ml/min; Est GFR (Non-African American) 94.6 ml/min; Potassium 3.3 mmol/L (3.5-5.1)
[2022-03-26] MEDS: ESCITALOPRAM OXALATE 10 MG TAB PO SCH (08:33)
[2022-03-26] MEDS: FERROUS SULFATE 325 MG TAB PO SCH ×2 (08:35→17:43)
[2022-03-26] MEDS: CLOPIDOGREL BISULFATE 75 MG TAB PO SCH (08:36)
[2022-03-26] MEDS: NICOTINE 21 MG/24 HR TDSY TD SCH (08:36)
[2022-03-26] MEDS: PANTOprazole 40 MG TAB PO SCH (08:37)
[2022-03-26] MEDS: GABAPENTIN 600 MG TAB PO SCH ×3 (08:37→21:15)
[2022-03-26] MEDS: FAMOTIDINE 20 MG TAB PO SCH ×2 (08:37→21:14)
[2022-03-26] MEDS: methylPREDNISolone 40 MG in SYRINGE 0 ML IV SCH ×2 (08:38→16:33)
[2022-03-26] MEDS: SUCRALFATE 1 GM TAB PO SCH ×2 (08:38→21:15)
[2022-03-26] MEDS: clonazePAM 0.5 MG TAB PO SCH ×3 (08:40→21:13)
[2022-03-26] MEDS ORDERED: POTASSIUM CHLORIDE CRTAB 20 MEQ TABCR PO ONE (09:49)
--- NOTE | 2022-03-26 13:01 | XRay Report ---
XR chest 1V portable CLINICAL HISTORY: Aspiration. Shortness of breath COMPARISON STUDY: 03/24/2022 TECHNIQUE: 1 view of the chest FINDINGS: Single frontal view of the chest demonstrates the cardiomediastinal silhouette to be within normal li mits. There is hyperinflation of the lungs with attenuation of the pulmonary vasculature peripherally characteristic of underlying chronic obstructive pulmonary disease. The lungs are clear of alveolar opacities. There is no evidence for pleural effusion. There is no evidence for vascular congestion. T here is no acute osseous pathology. IMPRESSION: 1. No acute cardiopulmonary disease. 2. There is again COPD. ACT 112: Negative or not required by law. Electronically signed by: Matt Velasquez M.D. 03/26/2022 12:59 PM
--- NOTE | 2022-03-26 13:03 | Electrocardiogram Report ---
Test Reason : Blood Pressure : / mmHG Vent. Rate : 082 BPM Atrial Rate : 082 BPM P-R Int : 148 ms QRS Dur : 086 ms QT Int : 392 ms P-R-T Axes : 065 067 074 degrees QTc Int : 457 ms Normal sinus rhythm Possible Old Anterior infarct Nonspecific T wave abnormality Anterior leads Abnormal ECG When compared with ECG of 16-MAR-2022 12:16, Minimal criteria for Anterior infarct are now Present T wave inversion now evident in Anterior leads Confirmed by Alexey Zacarias ([id number]) on 03/26/2022 1:03:34 PM Referred By: REFERRED SELF Confirmed By:Alexey Zacarias
--- NOTE | 2022-03-26 14:29 | Electrocardiogram Report ---
Test Reason : Blood Pressure : / mmHG Vent. Rate : 103 BPM Atrial Rate : 103 BPM P-R Int : 154 ms QRS Dur : 088 ms QT Int : 364 ms P-R-T Axes : 084 047 076 degrees QTc Int : 476 ms Sinus tachycardia Right atrial enlargement Possible Old Anterior infarct (cited on or before 24-MAR-2022) Nonspecific T wave abnormality Anterior leads Abnormal ECG When compared with ECG of 24-MAR-2022 17:37, No significant change Confirmed by Alexey Zacarias ([id number]) on 03/26/2022 2:28:19 PM Referred By: REFERRED SELF Confirmed By:Alexey Zacarias
--- NOTE | 2022-03-26 18:31 | Hospitalist Progress Note ---
Date of Service March 26, 2022 Assessment & Plan (1) COPD (chronic obstructive pulmonary disease): Plan: Patient is a 76 yr female presents with chronic obstructive pulmonary disease exacerbation. Acute COPD Exacerbation Acute on chronic respiratory failure with hypoxia Chronic oxygen dependency: 4L at baseline --CXR:No acute cardiopulmonary findings. Emphysema. Ongoing tobacco use disorder Counseled to quit smoking Initially was placed on BiPAP Continue Solu-Medrol, nebulizers, azithromycin Continue supplemental oxygen as needed Consider pulmonary evaluation if no improvement Nicotine patch Continue current management Titrate oxygen to keep oxygen saturations 88 to 92% Dysphagia Appreciate GI input EGD as outpatient Speech Eval Aspiration precautions Hyperlipidemia on statin PVD on Plavix and statin. GERD on Dexilant and Protonix Depression on Lexapro Anemia of chronic disease Monitor CBC on iron supplements. Hypertension on diltiazem DVT Px: Heparin SQ Code Status Full code Admission and Anticipated Discharge Date Admission Date: March 24, 2022 Subjective Patient is seen and examined at bedside Had a choking episode while eating earlier today Chest x-ray showed no acute process Less dyspnea, cough today Offers no other complaints Denies any chest pain, dizziness, nausea, abdominal pain Review of Systems Review of Systems: All systems reviewed & are unremarkable except as noted in Subjective Physical Exam Physical Exam: Physical Exam: Vitals signs as noted above General Appearance:Thin, frail, Chronic ill, +Tremors, no apparent distress Head: normocephalic, Atraumatic Eyes: normal inspection, EOMI Neck: supple, Trachea midline Respiratory/Chest: Diminished coarse breath sounds, B/L expiratory wheezes, No a ccessory muscle use Cardiovascular: S1, S2, No murmur Abdomen/GI:Soft, Non tender, Bowel sounds present Extremities/Musculoskeletal:normal inspection, no edema Neurologic/Psych:AAOX3, grossly no focal neurological deficits Skin: normal color, warm Results & Data Results & Data ([facility]) Vital Signs (Past 12 Hours) Vital Signs Temp Pulse Resp BP Pulse Ox 03/26/22 16:21 36.7 C 114 H 18 126/57 L 96 03/26/22 15:02 91 03/26/22 13:40 93 H 18 93 03/26/22 11:16 36.7 C 93 H 17 138/56 L 95 03/26/22 07:46 89 18 95 03/26/22 07:06 36.7 C 93 H 20 147/68 H 100 Laboratory Results Short CBC 03/26/22 Range/Units 06:39 WBC 8.19 (4.8-10.8) K/uL Hgb 9.8 L (12.0-16.0) g/dL Hct 30.5 L (37-47) % Plt Count 367 (130-400) K/uL BMP 03/26/22 06:39 Sodium 135 L Potassium 3.3 L D Chloride 90 L Carbon Dioxide 40 H BUN 10 Creatinine 0.48 L Glucose 119 H Calcium 9.0
[2022-03-26] MEDS: ACETAMINOPHEN 325 MG TAB PO PRN (18:46)
[2022-03-26] MEDS: LEVALBUTEROL HCL 1.25 MG/3 ML NEB NEB PRN ×2 (19:29→19:31)
[2022-03-26] MEDS: AZITHROMYCIN 250 MG TAB PO SCH (21:14)
[2022-03-26] MEDS: ROSUVASTATIN CALCIUM 20 MG TAB PO SCH (21:15)
[2022-03-27] MEDS: methylPREDNISolone 40 MG in SYRINGE 0 ML IV SCH ×3 (00:39→16:28)
[2022-03-27] MEDS: LEVALBUTEROL 1.25MG/0.5ML NEB INH SCH ×4 (00:43→20:11)
[2022-03-27] MEDS: IPRATROPIUM BROMIDE NEB SOLN 0.02% 2.5 ML VIAL INH SCH ×4 (00:44→20:11)
[2022-03-27] MEDS: HEPARIN SOD 5,000 UNIT/0.5 ML VIAL SQ SCH ×3 (05:42→22:31)
[2022-03-27] MEDS: FORMOTEROL 20 MCG/2 ML VIAL INH SCH ×2 (07:11→20:08)
[2022-03-27 08:20] LABS: Hematocrit (blood only) 31.9 % (37-47); Hemoglobin 10.1 g/dL (12.0-16.0); Mean Corpuscular Hemoglobin 31.2 pg (25-34); Mean Corpuscular Hgb Conc 31.7 g/dL (32-36); Mean Corpuscular Volume 98.5 fL (80-100); Mean Platelet Volume 10.3 fL (7.4-10.4); Platelet Count 392 K/uL (130-400); RDW Coefficient of Variation 12.3 % (11.5-14.5); RDW Standard Deviation 44.3 fL (36.4-46.3); Red Blood Count 3.24 M/uL (4.2-5.4); White Blood Count 6.33 K/uL (4.8-10.8)
[2022-03-27 08:50] LABS: BUN Creatinine Ratio 28.2 (10-20); Calcium 9.3 mg/dl (8.5-10.1); Creatinine Clr Calc Pharmacy 76.7 ml/min; Est GFR (African American) 117.4 ml/min; Est GFR (Non-African American) 101.3 ml/min; Potassium 3.1 mmol/L (3.5-5.1)
[2022-03-27] MEDS: FAMOTIDINE 20 MG TAB PO SCH ×2 (09:21→20:44)
[2022-03-27] MEDS: GABAPENTIN 600 MG TAB PO SCH ×3 (09:21→20:45)
[2022-03-27] MEDS: ESCITALOPRAM OXALATE 10 MG TAB PO SCH (09:21)
[2022-03-27] MEDS: PANTOprazole 40 MG TAB PO SCH (09:21)
[2022-03-27] MEDS: CLOPIDOGREL BISULFATE 75 MG TAB PO SCH (09:21)
[2022-03-27] MEDS: NICOTINE 21 MG/24 HR TDSY TD SCH (09:22)
[2022-03-27] MEDS: SUCRALFATE 1 GM TAB PO SCH ×2 (09:22→20:44)
[2022-03-27] MEDS: FERROUS SULFATE 325 MG TAB PO SCH ×2 (09:22→16:29)
[2022-03-27] MEDS: clonazePAM 0.5 MG TAB PO SCH ×3 (09:23→20:47)
[2022-03-27] MEDS ORDERED: POTASSIUM CHLORIDE CRTAB 20 MEQ TABCR PO ONE ×2 (09:35→16:00)
--- NOTE | 2022-03-27 18:21 | Hospitalist Progress Note ---
Date of Service March 27, 2022 Assessment & Plan (1) COPD (chronic obstructive pulmonary disease): Plan: Patient is a 76 yr female presents with chronic obstructive pulmonary disease exacerbation. Acute COPD Exacerbation Acute on chronic respiratory failure with hypoxia Chronic oxygen dependency: 4L at baseline --CXR:No acute cardiopulmonary findings. Emphysema. Ongoing tobacco use disorder Counseled to quit smoking Initially was placed on BiPAP Continue Solu-Medrol, nebulizers, azithromycin Continue supplemental oxygen as needed Consider pulmonary evaluation if no improvement Nicotine patch Titrate oxygen to keep oxygen saturations 88 to 92% Back to baseline supplemental oxygen requirement Will consider discharge tomorrow if continues to be stable and improve Dysphagia Appreciate GI input EGD as outpatient Speech Eval Aspiration precautions Has a follow-up appointment in March as outpatient with GI Hyperlipidemia on statin PVD on Plavix and statin. GERD on Dexilant and Protonix Depression on Lexapro Anemia of chronic disease Monitor CBC on iron supplements. Hypertension on diltiazem DVT Px: Heparin SQ Code Status Full code Admission and Anticipated Discharge Date Admission Date: March 24, 2022 Subjective Patient is seen and examined at bedside States feeling well today No new complaints Only minimal cough Denies any chest pain, dyspnea, dizziness, nausea, abdominal pain Eager to get discharged Saturating well on 4 L supplemental oxygen Review of Systems Review of Systems: All systems reviewed & are unremarkable except as noted in Subjective Physical Exam Physical Exam: Physical Exam: Vitals signs as noted above General Appearance:Thin, frail, Chronic ill, +Tremors, no apparent distress Head: normocephalic, Atraumatic Eyes: normal inspection, EOMI Neck: supple, Trachea midline Respiratory/Chest: Diminished coarse breath sounds, CTA, No accessory muscle use Cardiovascular: S1, S2, No murmur Abdomen/GI:Soft, Non tender, Bowel sounds present Extremities/Musculoskeletal:normal inspection, no edema Neurologic/Psych:AAOX3, grossly no focal neurological deficits Skin: normal color, warm Results & Data Results & Data ([facility]) Vital Signs (Past 12 Hours) Vital Signs Temp Pulse Resp BP Pulse Ox Pulse Ox 03/27/22 15:17 36.9 C 87 21 147/53 H 93 03/27/22 14:00 93 03/27/22 13:00 82 18 96 03/27/22 08:00 36.5 C 98 H 18 169/60 H 98 03/27/22 07:14 93 H 20 94 Laboratory Results Short CBC 03/27/22 Range/Units 07:24 WBC 6.33 (4.8-10.8) K/uL Hgb 10.1 L (12.0-16.0) g/dL Hct 31.9 L (37-47) % Plt Count 392 (130-400) K/uL BMP 03/27/22 07:24 Sodium 135 L Potassium 3.1 L Chloride 90 L Carbon Dioxide 42 H* BUN 11 Creatinine 0.39 L Glucose 120 H Calcium 9.3
[2022-03-27] MEDS: AZITHROMYCIN 250 MG TAB PO SCH (20:45)
[2022-03-27] MEDS: ROSUVASTATIN CALCIUM 20 MG TAB PO SCH (20:45)
[2022-03-27] MEDS: ACETAMINOPHEN 325 MG TAB PO PRN (22:31)
[2022-03-28] MEDS: IPRATROPIUM BROMIDE NEB SOLN 0.02% 2.5 ML VIAL INH SCH ×4 (00:21→20:15)
[2022-03-28] MEDS: LEVALBUTEROL 1.25MG/0.5ML NEB INH SCH ×4 (00:22→20:21)
[2022-03-28] MEDS: methylPREDNISolone 40 MG in SYRINGE 0 ML IV SCH ×3 (00:50→20:10)
[2022-03-28] MEDS: HEPARIN SOD 5,000 UNIT/0.5 ML VIAL SQ SCH ×3 (05:42→23:20)
[2022-03-28 06:53] LABS: BUN Creatinine Ratio 30.2 (10-20); Calcium 8.6 mg/dl (8.5-10.1); Creatinine Clr Calc Pharmacy 70.1 ml/min; Est GFR (African American) 113.7 ml/min; Est GFR (Non-African American) 98.1 ml/min; Magnesium 1.9 mg/dl (1.7-2.4); Potassium 4.3 mmol/L (3.5-5.1)
[2022-03-28] MEDS: NICOTINE 21 MG/24 HR TDSY TD SCH (07:43)
[2022-03-28] MEDS: CLOPIDOGREL BISULFATE 75 MG TAB PO SCH (07:45)
[2022-03-28] MEDS: ESCITALOPRAM OXALATE 10 MG TAB PO SCH (07:47)
[2022-03-28] MEDS: FAMOTIDINE 20 MG TAB PO SCH ×2 (07:48→20:09)
[2022-03-28] MEDS: GABAPENTIN 600 MG TAB PO SCH ×3 (07:49→20:10)
[2022-03-28] MEDS: FERROUS SULFATE 325 MG TAB PO SCH ×2 (07:49→16:22)
[2022-03-28] MEDS: SUCRALFATE 1 GM TAB PO SCH ×2 (07:50→20:10)
[2022-03-28] MEDS: PANTOprazole 40 MG TAB PO SCH (07:50)
[2022-03-28] MEDS: clonazePAM 0.5 MG TAB PO SCH ×3 (07:57→20:09)
[2022-03-28] MEDS: FORMOTEROL 20 MCG/2 ML VIAL INH SCH ×2 (08:40→20:20)
--- NOTE | 2022-03-28 16:19 | Hospitalist Progress Note ---
Date of Service March 28, 2022 Assessment & Plan (1) COPD (chronic obstructive pulmonary disease): Plan: Patient is a 76 yr female presents with chronic obstructive pulmonary disease exacerbation. Acute COPD Exacerbation Acute on chronic respiratory failure with hypoxia Chronic oxygen dependency: 4L at baseline --CXR:No acute cardiopulmonary findings. Emphysema. Ongoing tobacco use disorder Counseled to quit smoking Initially was placed on BiPAP Continue Solu-Medrol, nebulizers, azithromycin Continue supplemental oxygen as needed Consider pulmonary evaluation if no improvement Nicotine patch Titrate oxygen to keep oxygen saturations 88 to 92% Waiting for rehab placement Currently saturating well on 2 L supplemental oxygen Titrate down steroids as able Dysphagia Appreciate GI input EGD as outpatient Speech Eval Aspiration precautions Has a follow-up appointment in March as outpatient with GI Hyperlipidemia on statin PVD on Plavix and statin. GERD on Dexilant and Protonix Depression on Lexapro Anemia of chronic disease Monitor CBC on iron supplements. Hypertension on diltiazem DVT Px: Heparin SQ Code Status Full code Disposition SNF Admission and Anticipated Discharge Date Admission Date: March 24, 2022 Subjective Patient is seen and examined at bedside Eager to get discharged No new complaints No significant cough Denies any chest pain, dyspnea, dizziness, nausea, abdominal pain Saturating well on 2 L supplemental oxygen Review of Systems Review of Systems: All systems reviewed & are unremarkable except as noted in Subjective Physical Exam Physical Exam: Physical Exam: Vitals signs as noted above General Appearance:Thin, frail, Chronic ill, +Tremors, no apparent distress Head: normocephalic, Atraumatic Eyes: normal inspection, EOMI Neck: supple, Trachea midline Respiratory/Chest: Diminished breath sounds, expiratory wheezes, No accessory muscle use Cardiovascular: S1, S2, No murmur Abdomen/GI:Soft, Non tender, Bowel sounds present Extremities/Musculoskeletal:normal inspection, no edema Neurologic/Psych:AAOX3, grossly no focal neurological deficits Skin: normal color, warm Results & Data Results & Data ([facility]) Vital Signs (Past 12 Hours) Vital Signs Temp Pulse Pulse Pulse Resp BP Pulse Ox 03/28/22 15:23 36.8 C 89 18 109/45 L 95 03/28/22 13:14 89 18 95 03/28/22 11:49 37.1 C 90 18 109/53 L 93 03/28/22 08:42 89 18 94 03/28/22 08:00 91 H 03/28/22 07:45 91 H 156/66 H Laboratory Results [facility] 03/28/22 05:47 Sodium 133 L Potassium 4.3 D Chloride 95 L Carbon Dioxide 35 H BUN 13 Creatinine 0.43 L Glucose 127 H Calcium 8.6
[2022-03-28] MEDS: ACETAMINOPHEN 325 MG TAB PO PRN (17:44)
[2022-03-28] MEDS: AZITHROMYCIN 250 MG TAB PO SCH (20:09)
[2022-03-28] MEDS: ROSUVASTATIN CALCIUM 20 MG TAB PO SCH (20:10)
[2022-03-29] MEDS: LEVALBUTEROL 1.25MG/0.5ML NEB INH SCH ×5 (01:05→23:56)
[2022-03-29] MEDS: IPRATROPIUM BROMIDE NEB SOLN 0.02% 2.5 ML VIAL INH SCH ×5 (01:05→23:56)
[2022-03-29] MEDS: HEPARIN SOD 5,000 UNIT/0.5 ML VIAL SQ SCH ×3 (05:42→20:46)
[2022-03-29 06:50] LABS: BUN Creatinine Ratio 36.2 (10-20); Creatinine Clr Calc Pharmacy 65.4 ml/min; Est GFR (African American) 110.4 ml/min; Est GFR (Non-African American) 95.3 ml/min; Potassium 3.9 mmol/L (3.5-5.1)
[2022-03-29] MEDS: ESCITALOPRAM OXALATE 10 MG TAB PO SCH (08:00)
[2022-03-29] MEDS: SUCRALFATE 1 GM TAB PO SCH ×2 (08:00→20:13)
[2022-03-29] MEDS: methylPREDNISolone 40 MG in SYRINGE 0 ML IV SCH (08:00)
[2022-03-29] MEDS: PANTOprazole 40 MG TAB PO SCH (08:00)
[2022-03-29] MEDS: GABAPENTIN 600 MG TAB PO SCH ×3 (08:01→20:13)
[2022-03-29] MEDS: CLOPIDOGREL BISULFATE 75 MG TAB PO SCH (08:02)
[2022-03-29] MEDS: FAMOTIDINE 20 MG TAB PO SCH ×2 (08:02→20:13)
[2022-03-29] MEDS: FERROUS SULFATE 325 MG TAB PO SCH ×2 (08:02→16:45)
[2022-03-29] MEDS: NICOTINE 21 MG/24 HR TDSY TD SCH (08:03)
[2022-03-29] MEDS: clonazePAM 0.5 MG TAB PO SCH ×3 (08:08→20:13)
[2022-03-29] MEDS: FORMOTEROL 20 MCG/2 ML VIAL INH SCH ×2 (08:20→19:54)
--- NOTE | 2022-03-29 16:46 | Hospitalist Progress Note ---
Date of Service March 29, 2022 Assessment & Plan (1) COPD (chronic obstructive pulmonary disease): Plan: Patient is a 76 yr female presents with chronic obstructive pulmonary disease exacerbation. Acute COPD Exacerbation Acute on chronic respiratory failure with hypoxia Chronic oxygen dependency: 4L at baseline --CXR:No acute cardiopulmonary findings. Emphysema. Ongoing tobacco use disorder Counseled to quit smoking Initially was placed on BiPAP Continue Solu-Medrol, nebulizers, azithromycin Continue supplemental oxygen as needed Consider pulmonary evaluation if no improvement Nicotine patch Titrate oxygen to keep oxygen saturations 88 to 92% Waiting for rehab placement Currently saturating well on 2 L supplemental oxygen Taper down steroids Likely discharge tomorrow if accepted to SNF Dysphagia Appreciate GI input EGD as outpatient Speech Eval Aspiration precautions Has a follow-up appointment in March as outpatient with GI Hyperlipidemia on statin PVD on Plavix and statin. GERD on Dexilant and Protonix Depression on Lexapro Anemia of chronic disease Monitor CBC on iron supplements. Hypertension on diltiazem DVT Px: Heparin SQ Code Status Full code Disposition SNF Admission and Anticipated Discharge Date Admission Date: March 24, 2022 Subjective Patient is seen and examined at bedside No new complaints Reports cough with expectoration Denies any chest pain, dyspnea, dizziness, nausea, abdominal pain Saturating well on supplemental oxygen Review of Systems Review of Systems: All systems reviewed & are unremarkable except as noted in Subjective Physical Exam Physical Exam: Physical Exam: Vitals signs as noted above General Appearance:Thin, frail, Chronic ill, +Tremors, no apparent distress Head: normocephalic, Atraumatic Eyes: normal inspection, EOMI Neck: supple, Trachea midline Respiratory/Chest: Diminished breath sounds, No accessory muscle use Cardiovascular: S1, S2, No murmur Abdomen/GI:Soft, Non tender, Bowel sounds present Extremities/Musculoskeletal:normal inspection, no edema Neurologic/Psych:AAOX3, grossly no focal neurological deficits Skin: normal color, warm Results & Data Results & Data ([facility]) Vital Signs (Past 12 Hours) Vital Signs Temp Pulse Resp BP Pulse Ox 03/29/22 16:08 36.8 C 81 20 129/63 97 03/29/22 12:37 89 17 93 03/29/22 12:02 36.4 C L 99 H 19 161/66 H 96 03/29/22 08:20 91 H 16 97 03/29/22 07:57 36.6 C 84 20 144/65 H 98 03/29/22 07:19 90 16 96 Laboratory Results [facility] 03/29/22 05:55 Sodium 135 L Potassium 3.9 Chloride 95 L Carbon Dioxide 36 H BUN 17 Creatinine 0.47 L Glucose 113 H Calcium 9.0
[2022-03-29] MEDS ORDERED: LEVALBUTEROL HCL 1.25 MG/3 ML NEB ONE (19:44)
[2022-03-29] MEDS: LEVALBUTEROL HCL 1.25 MG/3 ML NEB NEB PRN (19:56)
[2022-03-29] MEDS: AZITHROMYCIN 250 MG TAB PO SCH (20:13)
[2022-03-29] MEDS: ROSUVASTATIN CALCIUM 20 MG TAB PO SCH (20:13)
[2022-03-29] MEDS: MELATONIN 3 MG TAB PO PRN (20:45)
[2022-03-30] MEDS: HEPARIN SOD 5,000 UNIT/0.5 ML VIAL SQ SCH ×3 (06:04→22:37)
[2022-03-30] MEDS: FORMOTEROL 20 MCG/2 ML VIAL INH SCH ×2 (07:06→19:30)
[2022-03-30] MEDS: IPRATROPIUM BROMIDE NEB SOLN 0.02% 2.5 ML VIAL INH SCH ×3 (07:08→19:29)
[2022-03-30] MEDS: LEVALBUTEROL 1.25MG/0.5ML NEB INH SCH ×3 (07:08→19:29)
[2022-03-30 07:09] LABS: BUN Creatinine Ratio 37.8 (10-20); Calcium 9.2 mg/dl (8.5-10.1); Creatinine Clr Calc Pharmacy 70.6 ml/min; Est GFR (Non-African American) 96.7 ml/min; Magnesium 1.8 mg/dl (1.7-2.4)
[2022-03-30] MEDS: ESCITALOPRAM OXALATE 10 MG TAB PO SCH (08:02)
[2022-03-30] MEDS: PANTOprazole 40 MG TAB PO SCH (08:02)
[2022-03-30] MEDS: SUCRALFATE 1 GM TAB PO SCH ×2 (08:02→20:18)
[2022-03-30] MEDS: FAMOTIDINE 20 MG TAB PO SCH ×2 (08:02→20:18)
[2022-03-30] MEDS: GABAPENTIN 600 MG TAB PO SCH ×3 (08:02→20:18)
[2022-03-30] MEDS: CLOPIDOGREL BISULFATE 75 MG TAB PO SCH (08:02)
[2022-03-30] MEDS: NICOTINE 21 MG/24 HR TDSY TD SCH (08:03)
[2022-03-30] MEDS: FERROUS SULFATE 325 MG TAB PO SCH ×2 (08:03→18:08)
[2022-03-30] MEDS: clonazePAM 0.5 MG TAB PO SCH ×3 (08:08→20:20)
[2022-03-30] MEDS ORDERED: methylPREDNISolone 40 MG in SYRINGE 0 ML IV SCH (09:00)
--- NOTE | 2022-03-30 17:43 | Hospitalist Progress Note ---
Date of Service March 30, 2022 Assessment & Plan (1) COPD (chronic obstructive pulmonary disease): Plan: Patient is a 76 yr female presents with chronic obstructive pulmonary disease exacerbation. Acute COPD Exacerbation Acute on chronic respiratory failure with hypoxia Chronic oxygen dependency: 4L at baseline --CXR:No acute cardiopulmonary findings. Emphysema. Ongoing tobacco use disorder Counseled to quit smoking Initially was placed on BiPAP Continue nebulizers, azithromycin Continue supplemental oxygen as needed Consider pulmonary evaluation if no improvement Nicotine patch Titrate oxygen to keep oxygen saturations 88 to 92% Transition Solumedrol to prednisone tomorrow Case management to help with discharge planning Dysphagia Appreciate GI input EGD as outpatient Speech Eval Aspiration precautions Has a follow-up appointment in March as outpatient with GI Hyperlipidemia on statin PVD on Plavix and statin. GERD on Dexilant and Protonix Depression on Lexapro Anemia of chronic disease Monitor CBC on iron supplements. Hypertension on diltiazem DVT Px: Heparin SQ Code Status Full code Disposition SNF when accepted Admission and Anticipated Discharge Date Admission Date: March 24, 2022 Subjective Patient is seen and examined at bedside Patient is upset due to delayed discharge process No other complaints Denies any chest pain, dyspnea, dizziness, nausea, abdominal pain Saturating well 4L supplemental oxygen Review of Systems Review of Systems: All systems reviewed & are unremarkable except as noted in Subjective Physical Exam Physical Exam: Physical Exam: Vitals signs as noted above General Appearance:Thin, frail, Chronic ill, +Tremors, no apparent distress Head: normocephalic, Atraumatic Eyes: normal inspection, EOMI Neck: supple, Trachea midline Respiratory/Chest: Diminished breath sounds, No accessory muscle use Cardiovascular: S1, S2, No murmur Abdomen/GI:Soft, Non tender, Bowel sounds present Extremities/Musculoskeletal:normal inspection, no edema Neurologic/Psych:AAOX3, grossly no focal neurological deficits Skin: normal color, warm Results & Data Results & Data ([facility]) Vital Signs (Past 12 Hours) Vital Signs Temp Pulse Resp BP Pulse Ox 03/30/22 15:21 36.7 C 90 19 112/47 L 98 03/30/22 13:45 92 H 20 97 03/30/22 11:57 36.9 C 100 H 19 144/69 H 94 03/30/22 07:50 37.1 C 86 19 169/73 H 99 03/30/22 07:10 86 20 96 Laboratory Results BMP 03/30/22 06:27 Sodium 134 L Potassium 4.0 Chloride 93 L Carbon Dioxide 38 H BUN 17 Creatinine 0.45 L Glucose 80 Calcium 9.2
[2022-03-30] MEDS: ROSUVASTATIN CALCIUM 20 MG TAB PO SCH (20:18)
[2022-03-30] MEDS: MELATONIN 3 MG TAB PO PRN (20:20)
[2022-03-31] MEDS: IPRATROPIUM BROMIDE NEB SOLN 0.02% 2.5 ML VIAL INH SCH ×3 (00:12→12:28)
[2022-03-31] MEDS: LEVALBUTEROL 1.25MG/0.5ML NEB INH SCH ×2 (00:13→06:57)
[2022-03-31] MEDS: HEPARIN SOD 5,000 UNIT/0.5 ML VIAL SQ SCH (05:40)
[2022-03-31] MEDS: FORMOTEROL 20 MCG/2 ML VIAL INH SCH (06:57)
[2022-03-31 07:36] LABS: BUN Creatinine Ratio 35.4 (10-20); Calcium 8.9 mg/dl (8.5-10.1); Creatinine Clr Calc Pharmacy 63.7 ml/min; Est GFR (African American) 109.7 ml/min; Est GFR (Non-African American) 94.6 ml/min; Potassium 3.1 mmol/L (3.5-5.1)
[2022-03-31] MEDS ORDERED: predniSONE 10 MG TABLET PO SCH (09:00)
[2022-03-31] MEDS: NICOTINE 21 MG/24 HR TDSY TD SCH (09:30)
[2022-03-31] MEDS: PANTOprazole 40 MG TAB PO SCH (09:30)
[2022-03-31] MEDS: clonazePAM 0.5 MG TAB PO SCH (09:30)
[2022-03-31] MEDS: SUCRALFATE 1 GM TAB PO SCH (09:32)
[2022-03-31] MEDS: ESCITALOPRAM OXALATE 10 MG TAB PO SCH (09:32)
[2022-03-31] MEDS: GABAPENTIN 600 MG TAB PO SCH (09:33)
[2022-03-31] MEDS: FAMOTIDINE 20 MG TAB PO SCH (09:33)
[2022-03-31] MEDS: CLOPIDOGREL BISULFATE 75 MG TAB PO SCH (09:33)
[2022-03-31] MEDS: FERROUS SULFATE 325 MG TAB PO SCH (09:34)
[2022-03-31] MEDS ORDERED: POTASSIUM CHLORIDE CRTAB 20 MEQ TABCR PO ONE (09:57)
[2022-03-31] MEDS ORDERED: POTASSIUM CHLORIDE 20 MEQ/15 ML UDC PO ONE (09:59)
[2022-03-31] MEDS: LEVALBUTEROL HCL 1.25 MG/3 ML NEB NEB PRN (12:28)
--- NOTE | 2022-03-31 12:28 | Hospitalist Progress Note ---
Date of Service March 31, 2022 Assessment & Plan (1) COPD (chronic obstructive pulmonary disease): Plan: Patient is a 76 yr female presents with chronic obstructive pulmonary disease exacerbation. Acute COPD Exacerbation Acute on chronic respiratory failure with hypoxia Chronic oxygen dependency: 4L at baseline --CXR:No acute cardiopulmonary findings. Emphysema. Ongoing tobacco use disorder Counseled to quit smoking Initially was placed on BiPAP Continue nebulizers, azithromycin Continue supplemental oxygen as needed Consider pulmonary evaluation if no improvement Nicotine patch Titrate oxygen to keep oxygen saturations 88 to 92% Continue Prednisone taper Saturating well on 3 L supplemental oxygen Plan to discharge to rehab facility today. Dysphagia Appreciate GI input EGD as outpatient Speech Eval Aspiration precautions Has a follow-up appointment in March as outpatient with GI Hyperlipidemia on statin PVD on Plavix and statin. GERD on Dexilant and Protonix Depression on Lexapro Anemia of chronic disease Monitor CBC on iron supplements. Hypertension on diltiazem DVT Px: Heparin SQ Code Status Full code Disposition SNF today Admission and Anticipated Discharge Date Admission Date: March 24, 2022 Subjective Patient is seen and examined at bedside Doing well today No new complaints Denies any chest pain, dyspnea, dizziness, nausea, abdominal pain Saturating well 3L supplemental oxygen Planned to be discharged to rehab facility today Review of Systems Review of Systems: All systems reviewed & are unremarkable except as noted in Subjective Physical Exam Physical Exam: Physical Exam: Vitals signs as noted above General Appearance:Thin, frail, Chronic ill, +Chronic Tremors, no apparent distress Head: normocephalic, Atraumatic Eyes: normal inspection, EOMI Neck: supple, Trachea midline Respiratory/Chest: Diminished breath sounds, CTA, No accessory muscle use Cardiovascular: S1, S2, No murmur Abdomen/GI:Soft, Non tender, Bowel sounds present Extremities/Musculoskeletal:normal inspection, no edema Neurologic/Psych:AAOX3, grossly no focal neurological deficits Skin: normal color, warm Results & Data Results & Data ([facility]) Vital Signs (Past 12 Hours) Vital Signs Temp Pulse Resp BP Pulse Ox 03/31/22 09:29 85 119/67 03/31/22 08:12 36.8 C 103 H 16 121/65 99 03/31/22 06:57 83 18 96 Laboratory Results [facility] 03/31/22 06:24 Sodium 135 L Potassium 3.1 L D Chloride 93 L Carbon Dioxide 39 H BUN 17 Creatinine 0.48 L Glucose 76 Calcium 8.9
--- NOTE | 2022-03-31 12:40 | Discharge Summary ---
Date of Service March 31, 2022 Admission HPI Per Admitting Provider CHIEF COMPLAINT: Shortness of breath, cough. HISTORY OF PRESENT ILLNESS: This is a 76-year-old female with past medical history significant for COPD, chronic bronchitis, emphysema, chronic hypoxic respiratory failure with 4 liters of oxygen all the time, hyperlipidemia, pulmonary granuloma, atherosclerotic cardiovascular disease, peripheral vascular disease, history of sinus tachycardia, hypertension, history of bilateral carotid occlusions, GERD, Schatzki's ring, senile osteoporosis, idiopathic torsion dystonia, tobacco use disorder, anxiety state, comes because of shortness of breath getting worse lately and coughing with yellowish-whitish phlegm. Denies any fevers. In the ER, when she came in, she was placed on BiPAP. Currently, she is on high-flow oxygen, saturating okay, seems comfortable. Denies any chest pain. No nausea, no vomiting, no abdominal pain. Appetite is not that great. She says next month she is going to have her esophagus dilated, currently eating only soft bites of mashed up food. Denies any headache. Vision is okay. No runny nose, no sore throat. Has complaints of abdominal discomfort. Normal bowel and bladder movements. No swelling in the legs. Lives with daughter. Admission Exam Per Admitting Provider PHYSICAL EXAMINATION: GENERAL: The patient is thin and frail, somewhat shaky. VITAL SIGNS: Temperature 36.8, pulse 103, respiratory rate 19, blood pressure 119/50, oxygen 100% on high-flow oxygen. HEENT: Oral mucosa dry. NECK: No JVD, no neck masses. CARDIOVASCULAR: S1 and S2 heard, tachycardia. No murmurs. RESPIRATORY SYSTEM: Normal AP diameter. No accessory muscle use. Diminished breath sounds. Mild occasional expiratory wheezing. ABDOMEN: Soft. Bowel sounds are present, nontender, no distention. CENTRAL NERVOUS SYSTEM: Cranial nerves II-XII grossly intact, nonfocal. EXTREMITIES: No edema, no erythema. Principal Diagnosis Acute COPD Exacerbation Acute on chronic respiratory failure with hypoxia Chronic oxygen dependency Chronic dysphagia Discharge Data Allergies Allergy/AdvReac Type Severity Reaction Status Date / Time metoclopramide Allergy Severe "lungs Verified 03/24/22 16:37 collapsed" cortisone Allergy Intermediate swelling Verified 03/24/22 16:37 salicylates Allergy Mild caused Verified 03/24/22 16:37 bleeding, can take EC aspirin Corticosteroids AdvReac Intermediate swelling Verified 03/24/22 16:37 (Glucocorticoids) Consultations 03/24/22 18:43 ED Decision to Admit Stat 03/25/22 08:05 Consult Gastroenterology Routine Hospital Course (1) COPD (chronic obstructive pulmonary disease): Patient is a 76 yr female presents with chronic obstructive pulmonary disease exacerbation. Acute COPD Exacerbation Acute on chronic respiratory failure with hypoxia Chronic oxygen dependency: 4L at baseline --CXR:No acute cardiopulmonary findings. Emphysema. Ongoing tobacco use disorder Counseled to quit smoking Initially was placed on BiPAP Continue nebulizers, azithromycin Continue supplemental oxygen as needed Consider pulmonary evaluation if no improvement Nicotine patch Titrate oxygen to keep oxygen saturations 88 to 92% Continue Prednisone taper Saturating well on 3 L supplemental oxygen Plan to discharge to rehab facility today. Dysphagia Appreciate GI input EGD as outpatient Speech Eval Aspiration precautions Has a follow-up appointment in March as outpatient with GI Hyperlipidemia on statin PVD on Plavix and statin. GERD on Dexilant and Protonix Depression on Lexapro Anemia of chronic disease Monitor CBC on iron supplements. Hypertension on diltiazem DVT Px: Heparin SQ Code Status Full code Disposition SNF today Total Time Total Time Spent Total Time Spent (In Minutes): 45 minutes Discharge Plan Discharge Items Patient Disposition: Transfer Senior Living Fac Reason For Visit: SOB Discharge Diagnosis: Acute COPD Exacerbation Acute on chronic respiratory failure with hypoxia Chronic oxygen dependency Chronic dysphagia Activity: Per Instructions section Exercise/Sports: Gradually increase as tolerated Non-emergency contact: Primary Care Provider, Various Exceptionalities Teacher and Senior Reliability Engineer Call non-emergency contact if: you have any medication questions, your symptoms worsen, your pain is concerning for you and you have a fever Follow-up/Referrals: Nancy Mcdonald DO [Primary Care Provider] - Dietitian Info: Minced and Moist Diet: Regular and Full liquid Addtl Attending Provider Instructions: Follow-up with your primary care physician in 1 week Follow-up with your history faculty member for further evaluation of dysphagia Follow-up with your hand riveter in 2 to 4 weeks Complete the prednisone course as prescribed. Start taking prednisone 30 mg daily for 2 days, then take 20 mg daily for 2 days and then 10 mg daily for 2 days and stop ---Quit smoking Tobacco. ---DONT SMOKE WHILE ON NICOTINE PATCH Seek immediate medical attention if your symptoms reoccur or worsen Please take all medications as instructed on discharge list below. Please call if you have any questions or problems. You can reach a [facility] hospitalist on duty at [facility] [address] 24 hours a day by calling [phone] Pending Studies at Discharge: No Stand-Alone Forms: My [facility] Skilled Items Patient informed of condition?: Yes DNR: No Discharge Level of Care: Skilled Communicable Disease: No Discharge Prognosis: Stable Lines: None Urinary Catheter: No Medications and DC Order Prescriptions: New potassium chloride 20 mEq Tablet,Er Particles/Crystals 20 meq PO DAILY Qty: 5 RF: 0 nicotine [Nicoderm CQ] 21 mg/24 hr Patch 24 Hour 21 mg transdermal QAM Qty: 30 RF: 0 prednisone 10 mg tablet 10 mg PO UD Qty: 12 RF: 0 Continued albuterol sulfate [Ventolin HFA] 90 mcg/actuation Hfa Aerosol Inhaler 2 puff INHALATION BID PRN (Reason: Wheezing) RF: 0 gabapentin [Neurontin] 600 mg Tablet 600 mg PO TID RF: 0 polyethylene glycol 3350 [Miralax] 17 gram Powder In Packet 17 g PO DAILY PRN (Reason: Constipation) RF: 0 potassium chloride [K-Tab] 10 mEq Tablet Extended Release 10 meq PO UD PRN (Reason: Edema) RF: 0 clopidogrel [Plavix] 75 mg Tablet 75 mg PO QAM RF: 0 tramadol [Ultram] 50 mg Tablet 50 mg PO Q6H PRN (Reason: Pain) RF: 0 ferrous sulfate 325 mg (65 mg iron) Tablet 325 mg PO BID RF: 0 furosemide [Lasix] 20 mg Tablet 20 mg PO 2XWK PRN (Reason: Edema) RF: 0 fluticasone propionate [Flonase Allergy Relief] 50 mcg/actuation [place],Suspension 2 spray INTRANASAL DAILY PRN (Reason: Congestion) RF: 0 escitalopram oxalate [Lexapro] 5 mg Tablet 5 mg PO QAM RF: 0 Lactinex 1 million cell Tablet,Chewable 1 tab PO BID RF: 0 dexlansoprazole [Dexilant] 60 mg Capsule,Biphase Delayed Releas 60 mg PO QAM RF: 0 cyanocobalamin (vitamin B-12) 500 mcg Tablet, Sublingual 500 mcg SUBLINGUAL QAM RF: 0 famotidine [Pepcid] 20 mg tablet 20 mg PO BID RF: 0 sucralfate [Carafate] 1 gram tablet 1 g PO BID RF: 0 mometasone [Nasonex] 50 mcg/actuation [place],Non-Aerosol 2 spray INTRANASAL DAILY RF: 0 Atrovent HFA 17 mcg/actuation HFA aerosol inhaler 2 puff INHALATION Q4H PRN (Reason: Shortness Of Breath Or Wheezing) RF: 0 arformoterol [Brovana] 15 mcg/2 mL Solution For Nebulization 15 mcg inhalation BID RF: 0 pantoprazole [Protonix] 40 mg tablet,delayed release (DR/EC) 40 mg PO QAM RF: 0 rosuvastatin [Crestor] 20 mg Tablet 20 mg PO HS RF: 0 clonazepam 0.5 mg tablet 0.5 mg PO TID RF: 0 diltiazem HCl 60 mg Capsule,Extended Release 12 Hr 60 mg PO QAM RF: 0 ondansetron HCl 8 mg Tablet 8 mg PO Q8H PRN (Reason: Nausea) RF: 0 Discharge Orders: Discharge Order (Routine); Ordered 03/31/22 Ordered By: Evens Charlton Admission Data Admit Date/Time: 03/24/22 20:17 Attending Provider: Evens Charlton Admit Provider: Maurice Ford Primary Care Provider: Nancy Mcdonald Other Providers: [place],[facility] ; Weston Quezada ; Ron Sherman
[2022-04-01] MEDS ORDERED: POTASSIUM CHLORIDE CRTAB 20 MEQ TABCR PO SCH (09:00)
== END 2022-03-31 13:12 | DRG 189 ==
LOC: ED 16:17 → EDINP 20:17 → SUATTDRO 20:17 → 2S 23:00 → 3N 03-30 18:45

== ENCOUNTER 2022-04-27 21:28 | Inpatient (IN) ==
[2022-04-27 22:14] LABS: Basophils # (auto) 0.07 K/uL (0-0.2); Basophils % (auto) 1.7 %; Eosinophils # (auto) 0.54 K/uL (0-0.5); Eosinophils % (auto) 13.1 %; Hematocrit (blood only) 28.5 % (37-47); Hemoglobin 9.1 g/dL (12.0-16.0); Lymphocytes # (auto) 1.49 K/uL (1.2-3.4); Lymphocytes % (auto) 36.1 %; Mean Corpuscular Hemoglobin 30.6 pg (25-34); Mean Corpuscular Hgb Conc 31.9 g/dL (32-36); Mean Platelet Volume 9.8 fL (7.4-10.4); Monocytes # (auto) 0.69 K/uL (0.11-0.59); Monocytes % (auto) 16.7 %; Neutrophils # (auto) 1.34 K/uL (1.4-6.5); Neutrophils % (auto) 32.4 %; Platelet Count 375 K/uL (130-400); RDW Coefficient of Variation 12.3 % (11.5-14.5); RDW Standard Deviation 43.5 fL (36.4-46.3); Red Blood Count 2.97 M/uL (4.2-5.4); White Blood Count 4.13 K/uL (4.8-10.8)
[2022-04-27 22:25] LABS: Base Excess VBG 12.4 mEq/L; HCO3 VBG 39 mmol/L; Oxygen Saturation VBG 96.8 %; PCO2 VBG 60 mmHg (38-50); PO2 VBG 70 mmHg; pH VBG 7.42 (7.36-7.41)
[2022-04-27 22:36] LABS: INR 0.9 (0.9-1.1); Partial Thromboplastin Ratio 0.8; Partial Thromboplastin Time 22.9 Seconds (21.0-31.0); Prothrombin Time 10.1 Seconds (9.0-12.0)
[2022-04-27] MEDS ORDERED: OPTIRAY 320 125ml IV ONE (22:36)
[2022-04-27 22:46] LABS: Albumin Globulin Ratio 1.8 (0.9-2); Albumin Level 3.7 gm/dl (3.4-5.0); BUN Creatinine Ratio 20.4 (10-20); Bilirubin,Total 0.2 mg/dl (0.2-1.0); Creatinine Clr Calc Pharmacy 65.6 ml/min; Est GFR (African American) 108.9 ml/min; Globulin 2.1 gm/dl (2.5-4.0); Magnesium 1.7 mg/dl (1.7-2.4); Potassium 3.8 mmol/L (3.5-5.1); Total Protein 5.8 gm/dl (6.0-8.3)
[2022-04-27 23:00] LABS: Troponin I High Sensitivity 6.8 pg/ml (0-14)
--- NOTE | 2022-04-27 23:29 | History & Physical Report ---
Date of Service April 27, 2022 Assessment & Plan (1) Acute CVA (cerebrovascular accident): Plan: Presenting as right facial droop HCAP, possible aspiration No sepsis for now hx chronic respiratory failure secondary to COPD on supplemental O2 hx CAD/PVD as per records hypertension, slightly elevated chronic anemia (hemoglobin at baseline) past tobacco abuse Medical telemetry Neurochecks Add aspirin to patient's Plavix for secondary stroke prevention Permissive hypertension for now MRI brain Re: CVA TTE for additional stroke work-up Neurology consult Re: CVA Zosyn for HCAP Aspiration precautions, swallow eval PT OT eval DVT prophylaxis. Lovenox subcu Full code Text document was generated using [employer] voice recognition software. It may contain grammatical or spelling errors. Kindly contact undersigned for clarification of any documentation item in question. History of Present Illness Chief Complaint: Right facial droop as per records Primary Care Provider: Dr. Story History obtained from patient and records. History somewhat limited from patient secondary to dysarthria. Medical history significant for chronic respiratory failure secondary to COPD on supplemental O2, CAD/PVD as per records, hypertension, chronic anemia baseline hemoglobin of 9), past tobacco abuse Recent admission last month for COPD exacerbation. Patient discharged to [facility] for rehab. Patient noted worsening junky cough symptoms the last few days. No unusual shortness of breath. Admits to coughing with meals/water intake if she is not careful. Patient noted to have right facial droop and slurred speech a few hours ago. Undetermined time when patient was last known to be well. Patient brought to the ER for evaluation. Ceftriaxone and Azithromycin given at the ER for pneumonia. MEDICAL HISTORY: As above. SURGERIES: vascular procedures, carotid endarterectomy, knee surgery, hysterectomy, oophorectomy, hemorrhoidectomy, appendectomy. FAMILY HISTORY: heart disease, stroke PERSONAL AND SOCIAL HISTORY: Past tobacco abuse. No chronic intake of alcoholic beverages. 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 Allergies Allergy/AdvReac Type Severity Reaction Status Date / Time metoclopramide Allergy Severe "lungs Verified 04/27/22 22:12 collapsed" cortisone Allergy Intermediate swelling Verified 04/27/22 22:12 salicylates Allergy Intermediate caused Verified 04/27/22 22:12 bleeding, can take EC aspirin Corticosteroids AdvReac Intermediate swelling Verified 04/27/22 22:12 (Glucocorticoids) Home Medications Medication Instructions Recorded Confirmed Type Lactobacillus acidoph-L.bulgaricus 1 tab PO BID 08/15/19 04/27/22 History 1 million cell chewable tablet (Lactinex) albuterol sulfate 90 mcg/actuation 2 puff INHALATION BID PRN 08/15/19 04/27/22 History aerosol inhaler (Ventolin HFA) clopidogrel 75 mg tablet (Plavix) 75 mg PO QAM 08/15/19 04/27/22 History cyanocobalamin (vitamin B-12) 500 500 mcg SUBLINGUAL QAM 08/15/19 04/27/22 History mcg sublingual tablet escitalopram oxalate 5 mg tablet 5 mg PO QAM 08/15/19 04/27/22 History (Lexapro) ferrous sulfate 325 mg (65 mg 325 mg PO BID 08/15/19 04/27/22 History iron) tablet fluticasone propionate 50 2 spray INTRANASAL DAILY PRN 08/15/19 04/27/22 History mcg/actuation nasal spray,suspension (Flonase Allergy Relief) gabapentin 600 mg tablet 600 mg PO TID 08/15/19 04/27/22 History (Neurontin) tramadol 50 mg tablet (Ultram) 50 mg PO Q6H PRN 08/15/19 04/27/22 History arformoterol 15 mcg/2 mL solution 15 mcg INHALATION BID 12/02/19 04/27/22 History for nebulization (Brovana) famotidine 20 mg tablet (Pepcid) 20 mg PO BID 12/02/19 04/27/22 History ipratropium bromide 17 2 puff INHALATION Q4H PRN 12/02/19 04/27/22 History mcg/actuation HFA aerosol inhaler (Atrovent HFA) mometasone 50 mcg/actuation nasal 2 spray INTRANASAL DAILY 12/02/19 04/27/22 History spray (Nasonex) sucralfate 1 gram tablet (Carafate) 1 g PO BID 12/02/19 04/27/22 History pantoprazole 40 mg tablet,delayed 40 mg PO QAM 12/04/19 04/27/22 History release (Protonix) diltiazem HCl 60 mg 60 mg PO QAM 02/17/22 04/27/22 History capsule,extended release 12 hr ondansetron HCl 8 mg tablet 8 mg PO Q8H PRN 02/17/22 04/27/22 History clonazepam 0.5 mg tablet 0.5 mg PO TID 03/25/22 04/27/22 History acetaminophen 325 mg tablet 650 mg PO Q6H PRN 04/27/22 04/27/22 History (Tylenol) guaifenesin 100 mg/5 mL oral liquid See Rx Instructions .ROUTE .COMPLEX 04/27/22 04/27/22 History ipratropium 0.5 mg-albuterol 3 mg 3 ml INHALATION .Q2-4H PRN 04/27/22 04/27/22 History (2.5 mg base)/3 mL nebulization soln ipratropium 0.5 mg-albuterol 3 mg 3 ml INHALATION QID 04/27/22 04/27/22 History (2.5 mg base)/3 mL nebulization soln nicotine 14 mg/24 hr daily 1 patch TRANSDERMAL DAILY 04/27/22 04/27/22 History transdermal patch protein supplement 1 ea PO QPM 04/27/22 04/27/22 History rosuvastatin 10 mg tablet 20 mg PO HS 04/27/22 04/27/22 History Past Med/Surg History Medical History Anxiety Arthritis CAD (coronary artery disease) F/U DR Angélica LEONARDO Chronic obstructive pulmonary disease OXYGEN 3-4 L/MIN CONTINUOUSLY Diarrhea Difficulty swallowing GERD (gastroesophageal reflux disease) History of anemia History of esophageal dilatation History of GI bleed Hyperlipidemia Hypertension Osteoporosis PVD (peripheral vascular disease) SOB (shortness of breath) on exertion Surgical History H/O carotid endarterectomy R/L H/O hemorrhoidectomy H/O knee surgery H/O vascular surgery RIGHT ILIAC ARTERY STENT PLACEMENT History of appendectomy History of cardiac cath NO STENTS History of cataract surgery R/L History of colonoscopy History of esophagogastroduodenoscopy (EGD) Family History Other No family history of adverse response to anesthesia Social History Smoking Status: Current every day smoker Cigarettes Per Day: 5-10 CIG a day ADVISED; Second Hand Exposure: No; Do You Dip or Chew Tobacco: Yes; Hx Alcohol Use: Yes Alcohol type: beer Hx Substance Use: No Preferred Language: Bulgarian Communication Ability: Effective Compensation And Benefits Administrator Required: No Beliefs That Will Affect Care: None marital status: / Current Living Situation: Long-Term Current Living Situation Comment: [facility] Other Information That Helps Us Care for You: No Feels Safe at Home: Yes Safety Concerns: Feels Safe At This Time Assistive Devices: Walker Review of Systems Review of Systems: As per HPI, all other systems reviewed and negative Physical Exam Physical Exam: GENERAL: Comfortable, chronically ill, dysarthric, no respiratory distress SKIN: Pallor , warm HEENT: Pale palpebral conjunctivae, no ptosis, right facial droop, dry buccal mucosa, nasal cannula in place NECK : Supple, no tenderness CHEST : Decreased breath sounds, no tenderness HEART : RRR, no obvious murmurs ABDOMEN: no distention, nontender EXTREMITIES : No LE swelling/tenderness, no other conspicuous deformities noted NEUROLOGIC : Coherent, right facial asymmetry, dysarthric, MMTs BUE/BLE 4/5, no other gross focality Results & Data Results & Data ([facility]) Vital Signs (Past 12 Hours) Vital Signs Temp Pulse Resp BP Pulse Ox 04/27/22 23:00 83 18 133/59 L 99 04/27/22 22:42 84 20 126/59 L 100 04/27/22 22:40 100 04/27/22 22:00 87 17 105/52 L 04/27/22 21:43 94 H 26 H 91 04/27/22 21:39 36.6 C 93 H 16 133/54 L 93 Laboratory Results Laboratory Results WBC 4.13 K/uL (4.8-10.8) L 04/27/22 21:40 RBC 2.97 M/uL (4.2-5.4) L 04/27/22 21:40 Hgb 9.1 g/dL (12.0-16.0) L 04/27/22 21:40 Hct 28.5 % (37-47) L 04/27/22 21:40 MCV 96.0 fL (80-100) 04/27/22 21:40 MCH 30.6 pg (25-34) 04/27/22 21:40 MCHC 31.9 g/dL (32-36) L 04/27/22 21:40 RDW Std Deviation 43.5 fL (36.4-46.3) 04/27/22 21:40 RDW Coeff of Renetta 12.3 % (11.5-14.5) 04/27/22 21:40 Plt Count 375 K/uL (130-400) 04/27/22 21:40 MPV 9.8 fL (7.4-10.4) 04/27/22 21:40 Immature Gran % (Auto) 0.0 % 04/27/22 21:40 Neut % (Auto) 32.4 % 04/27/22 21:40 Lymph % (Auto) 36.1 % 04/27/22 21:40 Hall % (Auto) 16.7 % 04/27/22 21:40 Eos % (Auto) 13.1 % 04/27/22 21:40 Baso % (Auto) 1.7 % 04/27/22 21:40 Neut # (Auto) 1.34 K/uL (1.4-6.5) L 04/27/22 21:40 Lymph # (Auto) 1.49 K/uL (1.2-3.4) 04/27/22 21:40 Hall # (Auto) 0.69 K/uL (0.11-0.59) H 04/27/22 21:40 Eos # (Auto) 0.54 K/uL (0-0.5) H 04/27/22 21:40 Baso # (Auto) 0.07 K/uL (0-0.2) 04/27/22 21:40 Immature Gran # (Auto) 0.00 K/uL (0.00-0.02) 04/27/22 21:40 PT 10.1 Seconds (9.0-12.0) 04/27/22 21:40 INR 0.9 (0.9-1.1) 04/27/22 21:40 APTT 22.9 Seconds (21.0-31.0) 04/27/22 21:40 PTT Ratio 0.8 04/27/22 21:40 VBG pH 7.42 (7.36-7.41) H 04/27/22 22:10 VBG pCO2 60 mmHg (38-50) H 04/27/22 22:10 VBG pO2 70 mmHg 04/27/22 22:10 VBG HCO3 39 mmol/L 04/27/22 22:10 VBG O2 Saturation 96.8 % 04/27/22 22:10 VBG Base Excess 12.4 mEq/L 04/27/22 22:10 Sodium 137 mmol/L (136-145) 04/27/22 21:40 Potassium 3.8 mmol/L (3.5-5.1) 04/27/22 21:40 Chloride 97 mmol/L (98-107) L 04/27/22 21:40 Carbon Dioxide 35 mmol/L (21-32) H 04/27/22 21:40 Anion Gap 5 (3-11) 04/27/22 21:40 BUN 10 mg/dl (6-23) 04/27/22 21:40 Creatinine 0.49 mg/dl (0.6-1.2) L 04/27/22 21:40 Est Cr Clr Drug Dosing 65.6 ml/min 04/27/22 21:40 Est GFR ( Amer) 108.9 ml/min 04/27/22 21:40 Est GFR (Non-Af Amer) 94.0 ml/min 04/27/22 21:40 BUN/Creatinine Ratio 20.4 (10-20) H 04/27/22 21:40 Glucose 96 mg/dl (70-99(Fasting)) 04/27/22 21:40 POC Glucose 100 mg/dl (70-99) H 04/27/22 22:57 Calcium 9.0 mg/dl (8.5-10.1) 04/27/22 21:40 Magnesium 1.7 mg/dl (1.7-2.4) 04/27/22 21:40 Total Bilirubin 0.2 mg/dl (0.2-1.0) 04/27/22 21:40 AST 15 U/L (13-39) 04/27/22 21:40 ALT 9 U/L (7-52) 04/27/22 21:40 Alkaline Phosphatase 37 U/L (34-104) 04/27/22 21:40 Troponin I High Sens 6.8 pg/ml (0-14) 04/27/22 21:40 Total Protein 5.8 gm/dl (6.0-8.3) L 04/27/22 21:40 Albumin 3.7 gm/dl (3.4-5.0) 04/27/22 21:40 Globulin 2.1 gm/dl (2.5-4.0) L 04/27/22 21:40 Albumin/Globulin Ratio 1.8 (0.9-2) 04/27/22 21:[address] head initial read: No evidence of acute intercranial pathology. Mild to moderate nonspecificwhite matter changes. Bilateral lens replacements. Comparison made to prior head CT [id number]. CT angio head initial read: Negative CT angiogramof the head. Incomplete fusion of the posterior ring of C1. No comparisons CT angio neck initial read: Mild to moderate calcified atherosclerotic disease of the carotid bifurcationswithout significant stenosis. 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 Comparison made to prior CT scan of the soft tissues [id number], [id number]. Chest x-ray as per my interpretation : cardiomegaly, COPD, right lower lobe infiltrate EKG as per my interpretation : Rate 90, NSR, normal axis, no ischemia
[2022-04-27] MEDS ORDERED: LACTATED RINGER'S 1,000 ML IV ONE (23:33)
[2022-04-27] MEDS ORDERED: ASPIRIN 81 MG ECTAB PO STA (23:51)
[2022-04-28 00:02] LABS: Thyroid Stimulating Hormone 7.288 uIu/ml (0.300-4.500)
[2022-04-28 00:05] LABS: Bilirubin Urine Negative (Negative); Blood Urine Negative (Negative); Color Urine Yellow; Glucose Urine UA Negative (Negative); Ketones Urine Negative (Negative); Leukocyte Esterase Urine Negative (Negative); Nitrite Urine Negative (Negative); Protein Urine Negative (Negative); Specific Gravity Urine 1.013 (1.000-1.030); Urobilinogen Urine Negative (Negative); pH Urine 7.5 (4.5-7.5)
[2022-04-28 00:24] LABS: Appearance Urine Clear (Clear)
--- NOTE | 2022-04-28 00:40 | Emergency Department Note ---
History of Present Illness General Chief complaint: Altered Mental Status Stated complaint: ALTERED MENTAL STATUS Time Seen by Provider: 04/27/22 21:40 History of Present Illness This 76-year-[facility] presents to the ER complaining of possible stroke symptoms Location: Generalized Quality: Episode of slurred speech and facial droop Severity: Mild Duration: Today Timing: Today Context: detention saw that she was altered in center and Modifying factors: better with nothing; worse with nothing Patient states she has no medical complaints and is unsure why she is here. Patient does have some minimal left-sided nasolabial fold droop on my exam but no other deficits are appreciated. Patient states that she feels fine. Pt Denies any current medical complaints. Patient denies numbness, tingling, weakness, vision changes,flulike illness. I spoke to the nurse at the jail at [place] and and is unsure when she was last known well but states she did eat dinner tonight at 6 PM. He states she is normally more interactive and has clear speech. When he saw her tonight, he noticed some left-sided facial droop and had slurred speech and sent her in. He is not sure when the last time she was well. Home Medications Medication Instructions Recorded Confirmed Type Lactobacillus acidoph-L.bulgaricus 1 tab PO BID 08/15/19 04/27/22 History 1 million cell chewable tablet (Lactinex) albuterol sulfate 90 mcg/actuation 2 puff INHALATION BID PRN 08/15/19 04/27/22 History aerosol inhaler (Ventolin HFA) clopidogrel 75 mg tablet (Plavix) 75 mg PO QAM 08/15/19 04/27/22 History cyanocobalamin (vitamin B-12) 500 500 mcg SUBLINGUAL QAM 08/15/19 04/27/22 History mcg sublingual tablet escitalopram oxalate 5 mg tablet 5 mg PO QAM 08/15/19 04/27/22 History (Lexapro) ferrous sulfate 325 mg (65 mg 325 mg PO BID 08/15/19 04/27/22 History iron) tablet fluticasone propionate 50 2 spray INTRANASAL DAILY PRN 08/15/19 04/27/22 History mcg/actuation nasal spray,suspension (Flonase Allergy Relief) gabapentin 600 mg tablet 600 mg PO TID 08/15/19 04/27/22 History (Neurontin) tramadol 50 mg tablet (Ultram) 50 mg PO Q6H PRN 08/15/19 04/27/22 History arformoterol 15 mcg/2 mL solution 15 mcg INHALATION BID 12/02/19 04/27/22 History for nebulization (Brovana) famotidine 20 mg tablet (Pepcid) 20 mg PO BID 12/02/19 04/27/22 History ipratropium bromide 17 2 puff INHALATION Q4H PRN 12/02/19 04/27/22 History mcg/actuation HFA aerosol inhaler (Atrovent HFA) mometasone 50 mcg/actuation nasal 2 spray INTRANASAL DAILY 12/02/19 04/27/22 History spray (Nasonex) sucralfate 1 gram tablet (Carafate) 1 g PO BID 12/02/19 04/27/22 History pantoprazole 40 mg tablet,delayed 40 mg PO QAM 12/04/19 04/27/22 History release (Protonix) diltiazem HCl 60 mg 60 mg PO QAM 02/17/22 04/27/22 History capsule,extended release 12 hr ondansetron HCl 8 mg tablet 8 mg PO Q8H PRN 02/17/22 04/27/22 History clonazepam 0.5 mg tablet 0.5 mg PO TID 03/25/22 04/27/22 History acetaminophen 325 mg tablet 650 mg PO Q6H PRN 04/27/22 04/27/22 History (Tylenol) guaifenesin 100 mg/5 mL oral liquid See Rx Instructions .ROUTE .COMPLEX 04/27/22 04/27/22 History ipratropium 0.5 mg-albuterol 3 mg 3 ml INHALATION .Q2-4H PRN 04/27/22 04/27/22 History (2.5 mg base)/3 mL nebulization soln ipratropium 0.5 mg-albuterol 3 mg 3 ml INHALATION QID 04/27/22 04/27/22 History (2.5 mg base)/3 mL nebulization soln nicotine 14 mg/24 hr daily 1 patch TRANSDERMAL DAILY 04/27/22 04/27/22 History transdermal patch protein supplement 1 ea PO QPM 04/27/22 04/27/22 History rosuvastatin 10 mg tablet 20 mg PO HS 04/27/22 04/27/22 History Allergies Allergy/AdvReac Type Severity Reaction Status Date / Time metoclopramide Allergy Severe "lungs Verified 04/27/22 22:12 collapsed" cortisone Allergy Intermediate swelling Verified 04/27/22 22:12 salicylates Allergy Intermediate caused Verified 04/27/22 22:12 bleeding, can take EC aspirin Corticosteroids AdvReac Intermediate swelling Verified 04/27/22 22:12 (Glucocorticoids) Past Med/Surg History Medical History Anxiety Arthritis CAD (coronary artery disease) F/U DR Angélica LEONARDO Chronic obstructive pulmonary disease OXYGEN 3-4 L/MIN CONTINUOUSLY Diarrhea Difficulty swallowing GERD (gastroesophageal reflux disease) History of anemia History of esophageal dilatation History of GI bleed Hyperlipidemia Hypertension Osteoporosis PVD (peripheral vascular disease) SOB (shortness of breath) on exertion Surgical History H/O carotid endarterectomy R/L H/O hemorrhoidectomy H/O knee surgery H/O vascular surgery RIGHT ILIAC ARTERY STENT PLACEMENT History of appendectomy History of cardiac cath NO STENTS History of cataract surgery R/L History of colonoscopy History of esophagogastroduodenoscopy (EGD) Family History Other No family history of adverse response to anesthesia Social History Smoking Status: Unknown if ever smoked Cigarettes Per Day: 5-10 CIG a day ADVISED; Second Hand Exposure: No; Hx Alcohol Use: Yes Alcohol type: beer Hx Substance Use: No Preferred Language: Faroese Communication Ability: Effective Chief Of Surgery Required: No Beliefs That Will Affect Care: None marital status: / Current Living Situation: Alone Current Living Situation Comment: Lives with daughter Feels Safe at Home: Yes Assistive Devices: Cane, Oxygen - Continuous and Walker Review of Systems A total of 10 systems reviewed and were otherwise negative Physical Exam Vital Signs Vital Signs - 24 hr 04/27/22 21:39 04/27/22 21:43 04/27/22 22:00 Temperature 36.6 C Temperature Source Oral Pulse Rate 93 H 94 H 87 Pulse Rate from SpO2 Sensor 95 H Pulse Rhythm Regular Pulse Strength Normal Respiratory Rate 16 26 H 17 Respiratory Effort / Characteristics Non-Labored Spontaneous SOB on Exertion Respiratory Depth Normal Blood Pressure 133/54 L 105/52 L Blood Pressure Mean 80 69 Blood Pressure Position Lying Pulse Oximetry 93 91 Oxygen Delivery Method Nasal Cannula Nasal Cannula Oxygen Flow Rate 4 4 Sepsis Recent Fever Within 48 Hours No Sepsis New/Unexplained Change in Mental Status Yes Sepsis Action Taken by Nursing No Action Required 04/27/22 22:40 04/27/22 22:42 04/27/22 23:00 Temperature Temperature Source Pulse Rate 84 83 Pulse Rate from SpO2 Sensor 85 84 84 Pulse Rhythm Pulse Strength Respiratory Rate 20 18 Respiratory Effort / Characteristics Respiratory Depth Blood Pressure 126/59 L 133/59 L Blood Pressure Mean 81 83 Blood Pressure Position Pulse Oximetry 100 100 99 Oxygen Delivery Method Nasal Cannula Nasal Cannula Oxygen Flow Rate 4 4 Sepsis Recent Fever Within 48 Hours Sepsis New/Unexplained Change in Mental Status Sepsis Action Taken by Nursing 04/27/22 23:30 04/28/22 00:00 Temperature Temperature Source Pulse Rate 84 83 Pulse Rate from SpO2 Sensor 84 83 Pulse Rhythm Pulse Strength Respiratory Rate 18 17 Respiratory Effort / Characteristics Respiratory Depth Blood Pressure 124/59 L 141/66 H Blood Pressure Mean 80 91 Blood Pressure Position Pulse Oximetry 98 99 Oxygen Delivery Method Oxygen Flow Rate Sepsis Recent Fever Within 48 Hours Sepsis New/Unexplained Change in Mental Status Sepsis Action Taken by Nursing VITALS: Vitals are noted on the nurse's note and reviewed by myself. Vital signs stable. GENERAL: Pleasant elderly female chronically on oxygen, in no acute distress, nondiaphoretic, well-developed well-nourished. SKIN: The skin was without rashes, erythema, edema, or bruising. There is no tenting of the skin. Capillary reflex less than 2 seconds. HEAD: Normocephalic atraumatic. EARS: External auditory canals clear, EYES: Pupils equal round and reactive to light and accommodation. Conjunctivae without injection, sclerae without icterus. Extraocular movements intact. NOSE: Patent, turbinates without inflammation or discharge. MOUTH: Mucous membranes moist. Pharynx without erythema or exudate. Uvula midline. Airway patent. Tongue does not deviate. NECK: Supple without nuchal rigidity. No lymphadenopathy. No thyromegaly. Cervical spine is nontender. No JVD. HEART: Regular rate and rhythm LUNGS: Clear to auscultation bilaterally without wheezes, rales or rhonchi. No retractions or accessory muscle use. ABDOMEN: Positive bowel sounds x 4. Normal tympanic percussion. Soft, nontender, without masses or organomegaly. Gilmore sign negative. No guarding or rebound tenderness. No CVA tenderness MUSCULOSKELETAL: No muscle atrophy, erythema, or edema noted. NEURO: Patient was alert and oriented to person place and time. Minimal left- sided nasolabial fold droop but patient does not have her dentures in. Cranial nerves II through XII grossly intact. No pronator. Syllable exam intact. Normal sensation to light and sharp touch. No focal neurological deficits. Course Administered Medications Lactated Ringer's (Lr) 1,000 mls @ 60 mls/hr IV .[id number] ONE Stop: 04/28/22 16:12 Last Admin: 04/28/22 00:01 Dose: 60 mls/hr Documented by: [id number] Discontinued Medications Aspirin (Aspirin 81 Mg Ectab) 81 mg PO NOW STA Stop: 04/27/22 23:52 Last Admin: 04/28/22 00:05 Dose: 81 mg Documented by: [id number] Ioversol (Optiray 320 125ml) 116 ml IV ONCE ONE Stop: 04/27/22 22:37 Last Admin: 04/27/22 22:37 Dose: 116 ml Documented by: [id number] Medical Decision Making Medical Records Attestation: I reviewed the patient's medical records. Home Medications Current Medication List: was personally reviewed by me Laboratory Data Attestation: I reviewed the patient's lab results. Result diagrams: 04/27/22 21:40 04/27/22 21:40 Lab Results 04/27/22 04/27/22 04/27/22 Range/Units 21:40 21:40 21:40 WBC 4.13 L (4.8-10.8) K/uL RBC 2.97 L (4.2-5.4) M/uL Hgb 9.1 L (12.0-16.0) g/dL Hct 28.5 L (37-47) % MCV 96.0 (80-100) fL MCH 30.6 (25-34) pg MCHC 31.9 L (32-36) g/dL RDW Std Deviation 43.5 (36.4-46.3) fL RDW Coeff of Renetta 12.3 (11.5-14.5) % Plt Count 375 (130-400) K/uL MPV 9.8 (7.4-10.4) fL Immature Gran % (Auto) 0.0 % Neut % (Auto) 32.4 % Lymph % (Auto) 36.1 % [place] % (Auto) 16.7 % Eos % (Auto) 13.1 % Baso % (Auto) 1.7 % Neut # (Auto) 1.34 L (1.4-6.5) K/uL Lymph # (Auto) 1.49 (1.2-3.4) K/uL [place] # (Auto) 0.69 H (0.11-0.59) K/uL Eos # (Auto) 0.54 H (0-0.5) K/uL Baso # (Auto) 0.07 (0-0.2) K/uL Immature Gran # (Auto) 0.00 (0.00-0.02) K/uL PT 10.1 (9.0-12.0) Seconds INR 0.9 (0.9-1.1) APTT 22.9 (21.0-31.0) Seconds PTT Ratio 0.8 VBG pH (7.36-7.41) VBG pCO2 (38-50) mmHg VBG pO2 mmHg VBG HCO3 mmol/L VBG O2 Saturation % VBG Base Excess mEq/L Sodium 137 (136-145) mmol/L Potassium 3.8 (3.5-5.1) mmol/L Chloride 97 L (98-107) mmol/L Carbon Dioxide 35 H (21-32) mmol/L Anion Gap 5 (3-11) BUN 10 (6-23) mg/dl Creatinine 0.49 L (0.6-1.2) mg/dl Est Cr Clr Drug Dosing 65.6 ml/min Est GFR ( Amer) 108.9 ml/min Est GFR (Non-Af Amer) 94.0 ml/min BUN/Creatinine Ratio 20.4 H (10-20) Glucose 96 (70-99(Fasting)) mg/dl POC Glucose (70-99) mg/dl Calcium 9.0 (8.5-10.1) mg/dl Magnesium 1.7 (1.7-2.4) mg/dl Total Bilirubin 0.2 (0.2-1.0) mg/dl AST 15 (13-39) U/L ALT 9 (7-52) U/L Alkaline Phosphatase 37 (34-104) U/L Troponin I High Sens 6.8 (0-14) pg/ml Total Protein 5.8 L (6.0-8.3) gm/dl Albumin 3.7 (3.4-5.0) gm/dl Globulin 2.1 L (2.5-4.0) gm/dl Albumin/Globulin Ratio 1.8 (0.9-2) TSH (0.300-4.500) uIu/ml Urine Color Urine Appearance (Clear) Urine pH (4.5-7.5) Ur Specific [place] (1.000-1.030) Urine Protein (Negative) Urine Glucose (UA) (Negative) Urine Ketones (Negative) Urine Blood (Negative) Urine Nitrite (Negative) Urine Bilirubin (Negative) Urine Urobilinogen (Negative) Ur Leukocyte Esterase (Negative) SARS-CoV-2, RNA, NAAT (NEGATIVE) 04/27/22 04/27/22 04/27/22 Range/Units 21:40 22:10 22:57 WBC (4.8-10.8) K/uL RBC (4.2-5.4) M/uL Hgb (12.0-16.0) g/dL Hct (37-47) % MCV (80-100) fL MCH (25-34) pg MCHC (32-36) g/dL RDW Std Deviation (36.4-46.3) fL RDW Coeff of [place] (11.5-14.5) % Plt Count (130-400) K/uL MPV (7.4-10.4) fL Immature Gran % (Auto) % Neut % (Auto) % Lymph % (Auto) % [place] % (Auto) % Eos % (Auto) % Baso % (Auto) % Neut # (Auto) (1.4-6.5) K/uL Lymph # (Auto) (1.2-3.4) K/uL [place] # (Auto) (0.11-0.59) K/uL Eos # (Auto) (0-0.5) K/uL Baso # (Auto) (0-0.2) K/uL Immature Gran # (Auto) (0.00-0.02) K/uL PT (9.0-12.0) Seconds INR (0.9-1.1) APTT (21.0-31.0) Seconds PTT Ratio VBG pH 7.42 H (7.36-7.41) VBG pCO2 60 H (38-50) mmHg VBG pO2 70 mmHg VBG HCO3 39 mmol/L VBG O2 Saturation 96.8 % VBG Base Excess 12.4 mEq/L Sodium (136-145) mmol/L Potassium (3.5-5.1) mmol/L Chloride (98-107) mmol/L Carbon Dioxide (21-32) mmol/L Anion Gap (3-11) BUN (6-23) mg/dl Creatinine (0.6-1.2) mg/dl Est Cr Clr Drug Dosing ml/min Est GFR ( Amer) ml/min Est GFR (Non-Af Amer) ml/min BUN/Creatinine Ratio (10-20) Glucose (70-99(Fasting)) mg/dl POC Glucose 100 H (70-99) mg/dl Calcium (8.5-10.1) mg/dl Magnesium (1.7-2.4) mg/dl Total Bilirubin (0.2-1.0) mg/dl AST (13-39) U/L ALT (7-52) U/L Alkaline Phosphatase (34-104) U/L Troponin I High Sens (0-14) pg/ml Total Protein (6.0-8.3) gm/dl Albumin (3.4-5.0) gm/dl Globulin (2.5-4.0) gm/dl Albumin/Globulin Ratio (0.9-2) TSH 7.288 H (0.300-4.500) uIu/ml Urine Color Urine Appearance (Clear) Urine pH (4.5-7.5) Ur Specific [place] (1.000-1.030) Urine Protein (Negative) Urine Glucose (UA) (Negative) Urine Ketones (Negative) Urine Blood (Negative) Urine Nitrite (Negative) Urine Bilirubin (Negative) Urine Urobilinogen (Negative) Ur Leukocyte Esterase (Negative) SARS-CoV-2, RNA, NAAT (NEGATIVE) 04/27/22 04/27/22 Range/Units 23:30 23:50 WBC (4.8-10.8) K/uL RBC (4.2-5.4) M/uL Hgb (12.0-16.0) g/dL Hct (37-47) % MCV (80-100) fL MCH (25-34) pg MCHC (32-36) g/dL RDW Std Deviation (36.4-46.3) fL RDW Coeff of [place] (11.5-14.5) % Plt Count (130-400) K/uL MPV (7.4-10.4) fL Immature Gran % (Auto) % Neut % (Auto) % Lymph % (Auto) % [place] % (Auto) % Eos % (Auto) % Baso % (Auto) % Neut # (Auto) (1.4-6.5) K/uL Lymph # (Auto) (1.2-3.4) K/uL [place] # (Auto) (0.11-0.59) K/uL Eos # (Auto) (0-0.5) K/uL Baso # (Auto) (0-0.2) K/uL Immature Gran # (Auto) (0.00-0.02) K/uL PT (9.0-12.0) Seconds INR (0.9-1.1) APTT (21.0-31.0) Seconds PTT Ratio VBG pH (7.36-7.41) VBG pCO2 (38-50) mmHg VBG pO2 mmHg VBG HCO3 mmol/L VBG O2 Saturation % VBG Base Excess mEq/L Sodium (136-145) mmol/L Potassium (3.5-5.1) mmol/L Chloride (98-107) mmol/L Carbon Dioxide (21-32) mmol/L Anion Gap (3-11) BUN (6-23) mg/dl Creatinine (0.6-1.2) mg/dl Est Cr Clr Drug Dosing ml/min Est GFR ( Amer) ml/min Est GFR (Non-Af Amer) ml/min BUN/Creatinine Ratio (10-20) Glucose (70-99(Fasting)) mg/dl POC Glucose (70-99) mg/dl Calcium (8.5-10.1) mg/dl Magnesium (1.7-2.4) mg/dl Total Bilirubin (0.2-1.0) mg/dl AST (13-39) U/L ALT (7-52) U/L Alkaline Phosphatase (34-104) U/L Troponin I High Sens (0-14) pg/ml Total Protein (6.0-8.3) gm/dl Albumin (3.4-5.0) gm/dl Globulin (2.5-4.0) gm/dl Albumin/Globulin Ratio (0.9-2) TSH (0.300-4.500) uIu/ml Urine Color Yellow Urine Appearance Clear (Clear) Urine pH 7.5 (4.5-7.5) Ur Specific [place] 1.013 (1.000-1.030) Urine Protein Negative (Negative) Urine Glucose (UA) Negative (Negative) Urine Ketones Negative (Negative) Urine Blood Negative (Negative) Urine Nitrite Negative (Negative) Urine Bilirubin Negative (Negative) Urine Urobilinogen Negative (Negative) Ur Leukocyte Esterase Negative (Negative) SARS-CoV-2, RNA, NAAT NEGATIVE (NEGATIVE) Imaging Data Attestation: I personally reviewed and interpreted this imaging study as follows: MDM Narrative Prior records/ancillary studies reviewed and summarized above. Nursing notes reviewed. Additional history obtained from EMS. The patient's history was concerning for possible stroke versus TIA. Differential diagnosis: Etiologies such as metabolic, infection, hypo/hyperglycemia, electrolyte abnormalities, cardiac sources, intracerebral event, toxicologic, neurologic, as well as others were entertained. Physical examination: As above. ER treatment provided: IV Lock An order was placed for continuous cardiac monitoring. The monitor shows a rate of 60-100 with a sinus rhythm. The jail was contacted for further history On reassessment the patient felt better. Diagnostics interpretation by me: ECG: Ordered for possible stroke EKG: Normal sinus, normal intervals, no acute ST-T wave changes. Impression normal sinus rhythm rate of 90 interpreted by myself I think arrhythmia is unlikely. EKG shows normal sinus rhythm with no interval abnormalities such as QT prolongation or WPW. There are no findings to suggest Brugada syndrome. Cardiac monitoring in the emergency department reveals no tachycardic or bradycardic dysrhythmia. Hypertrophic cardiomyopathy was considered but there are no clear historical elements pointing toward this. EKG is not suggestive. The QRS voltage is not extremely large and there are no arita ggestive Q waves. The labs revealed chronic anemia Negative urine Imaging studies: CT HEAD: No evidence of acute intercranial pathology. Mild to moderate nonspecific white matter changes. Bilateral lens replacements. Comparison made to prior head CT from March 16, 2022. Radiologist: Marguerite Amezquita MD Study ready at 22:45 and initial results transmitted at 23:13 Preliminary Findings Only See Final Report For Complete Findings CTA HEAD: Negative CT angiogram of the head. Incomplete fusion of the posterior ring of C1. No comparisons. Radiologist: Marguerite Amezquita MD Study ready at 22:45 and initial results transmitted at 23:15 Preliminary Findings Only See Final Report For Complete Findings CTA NECK: Mild to moderate calcified atherosclerotic disease of the carotid bifurcations without significant stenosis. 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 Comparison made to prior CT scan of the soft tissues from December 15, 2014. Radiologist: Marguerite Amezquita MD Phone:[phone] Study ready at 23:04 and initial results transmitted at 23:18 Chest x-ray with possible right lower lobe pneumonia per my interpretation no free air TIA Score: Age > 60:(1) 1 BP >140 >90 (1): 1 Clinical features (unilateral weakness) (2): 0 CF speech disturbance (1): 1 Duration of symptoms 10-60min (1): 0 Duration >60min (2): 2 Diabetes (1): 0 Score @ 2days @ 7days @ 90days 0-3 low 1% 1.2% 3.1% 4-5 mod 4.1% 5.9% 9.8% 6-7 high 8.1% 11.7% 17.8% Total: 5 Consultation: A consultation was placed with the hospitalist. The case was discussed and diagnostics were reviewed. The patient was evaluated in the ER for further treatment. Exam and history seem consistent with possible TIA and possible pneumonia. Patient was started on antibiotics. Patient speech was now clear. Apparently at the jail it was slurred. Medicine was consulted. She will be admitted for TIA work-up. By the evaluation outlined above emergent etiologies such as electrolyte abnormalities, cardiac sources, intracerebral event, toxologic, abnormalities blood glucose, metabolic, as well as others were deemed relatively unlikely. The pt informed about the findings as listed above. All questions were answered and pleased with the treatment. The chart was completed utilizing [employer] Speech voice recognition software. Grammatical errors, random word insertions, pronoun errors, and incomplete sentences are an occassional consequence of this system due to software limitations, ambient noise, and hardware issues. Any formal questions or concerns about the content, text, or information contained within the body of this dictation should be directly addressed to the physician family assistant for clarification. Impression & Plan TIA (transient ischemic attack), Pneumonia Discharge Plan Visit Data Chief Complaint: Altered Mental Status Stated Complaint: ALTERED MENTAL STATUS ED Provider: [facility] Midlevel Provider: Rosa Ortega Discharge Problem: TIA (transient ischemic attack), Pneumonia Patient Disposition: Admitted As Inpatient Condition: Good Forms Stand Alone Forms: [facility] [email or web address] [email or web address] Prescriptions Prescriptions: No Action albuterol sulfate [Ventolin HFA] 90 mcg/actuation Hfa Aerosol Inhaler 2 puff INHALATION BID PRN (Reason: Wheezing) RF: 0 gabapentin [Neurontin] 600 mg Tablet 600 mg PO TID RF: 0 clopidogrel [Plavix] 75 mg Tablet 75 mg PO QAM RF: 0 tramadol [Ultram] 50 mg Tablet 50 mg PO Q6H PRN (Reason: Pain) RF: 0 ferrous sulfate 325 mg (65 mg iron) Tablet 325 mg PO BID RF: 0 fluticasone propionate [Flonase Allergy Relief] 50 mcg/actuation [place],Suspension 2 spray INTRANASAL DAILY PRN (Reason: Congestion) RF: 0 escitalopram oxalate [Lexapro] 5 mg Tablet 5 mg PO QAM RF: 0 Lactinex 1 million cell Tablet,Chewable 1 tab PO BID RF: 0 cyanocobalamin (vitamin B-12) 500 mcg Tablet, Sublingual 500 mcg SUBLINGUAL QAM RF: 0 famotidine [Pepcid] 20 mg tablet 20 mg PO BID RF: 0 sucralfate [Carafate] 1 gram tablet 1 g PO BID RF: 0 mometasone [Nasonex] 50 mcg/actuation [place],Non-Aerosol 2 spray INTRANASAL DAILY RF: 0 Atrovent HFA 17 mcg/actuation HFA aerosol inhaler 2 puff INHALATION Q4H PRN (Reason: Shortness Of Breath Or Wheezing) RF: 0 arformoterol [Brovana] 15 mcg/2 mL Solution For Nebulization 15 mcg inhalation BID RF: 0 pantoprazole [Protonix] 40 mg tablet,delayed release (DR/EC) 40 mg PO QAM RF: 0 clonazepam 0.5 mg tablet 0.5 mg PO TID RF: 0 diltiazem HCl 60 mg Capsule,Extended Release 12 Hr 60 mg PO QAM RF: 0 ondansetron HCl 8 mg Tablet 8 mg PO Q8H PRN (Reason: Nausea) RF: 0 acetaminophen [Tylenol] 325 mg Tablet 650 mg PO Q6H PRN (Reason: PAIN/FEVER) RF: 0 nicotine 14 mg/24 hr Patch 24 Hour 1 patch TRANSDERMAL DAILY RF: 0 ipratropium-albuterol 0.5 mg-3 mg(2.5 mg base)/3 mL Solution For Nebulization 3 ml INHALATION .Q2-4H PRN (Reason: Shortness Of Breath Or Wheezing) RF: 0 ipratropium-albuterol 0.5 mg-3 mg(2.5 mg base)/3 mL Solution For Nebulization 3 ml INHALATION QID RF: 0 guaifenesin 100 mg/5 mL Liquid See Rx Instructions .ROUTE .COMPLEX RF: 0 rosuvastatin 10 mg Tablet 20 mg PO HS RF: 0 protein supplement Liquid 1 ea PO QPM RF: 0 Referrals Referrals: [facility] [Primary Care Provider] -
[2022-04-28] MEDS ORDERED: cefTRIAXone SODIUM 1,000 MG/50 ML BAG IV STA (00:53)
[2022-04-28] MEDS ORDERED: AZITHROMYCIN 250 MG TAB PO ONE (00:53)
[2022-04-28 01:04] LABS: T4 Free Thyroxine 0.79 ng/dl (0.61-1.60)
[2022-04-28] MEDS ORDERED: traMADol HCL 50 MG TABLET PO PRN (02:30)
[2022-04-28] MEDS ORDERED: FLUTICASONE PROPIONATE NA SPR 16 GM BTL PRN (02:30)
[2022-04-28] MEDS ORDERED: ACETAMINOPHEN 325 MG TAB PO PRN (02:30)
[2022-04-28] MEDS ORDERED: PROMETHAZINE HCL 6.25 MG in SODIUM CHLORIDE 0.9% 50 ML IV PRN (02:30)
[2022-04-28] MEDS ORDERED: PHARMACIST DISCHARGE MED REC CONSULT PRN (02:30)
[2022-04-28] MEDS ORDERED: PIPERACILLIN/TAZOBACTAM 4.5 GM in DEXTROSE 5% 100 ML IV ONE (04:45)
--- NOTE | 2022-04-28 07:05 | CT Scan Report ---
UNENHANCED CT OF THE BRAIN; CT ANGIOGRAM OF THE BRAIN; CT ANGIOGRAM OF THE NECK CLINICAL HISTORY: Strokelike symptoms. Facial droop and slurred speech. COMPARISON STUDY: CT of the brain dated 03/16/2022. CT of the neck dated 12/15/2014. TECHNIQUE: Unenhanced axial CT scan of the brain is performed. Subsequently, following the IV adminis tration of 116 of [address] 320, CT angiogram of the head and neck was performed from the aortic arch t o the vertex. Images are reviewed in the axial, sagittal, and coronal planes. 3-D MIPS images are cre ated and assessed. IV contrast was administered without complication. All measurements were calculate d based on NASCET criteria. A dose lowering technique was utilized adhering to the principles of ALA RA. CT DOSE: 1952.57 mGy.cm FINDINGS: Brain parenchyma: There is age-related involutional change noting [id number] subcortical and pe riventricular microangiopathic disease. There is no hemorrhage, mass effect, or evidence of acute ter ritorial ischemia by CT criteria. There is no evidence of enhancing mass lesion on the angiogram phas e images. The ventricles, sulci, and cisterns are normal in configuration. Rojas-white matter differen tiation is preserved. No extra-axial fluid collection is seen. Thoracic aorta: There is atherosclerotic calcification of the thoracic aorta. Visualized portions of the thoracic aorta are normal in caliber. The aortic arch demonstrates standard 3-vessel anatomy. Right carotid arterial system: The right common carotid artery is widely patent, as are the right int ernal and external carotid arteries. Advanced atherosclerotic plaque seen the carotid bulb. Left carotid arterial system: The left common carotid artery is widely patent, as are the left trestle mainternance laborer al and external carotid arteries. Advanced atherosclerotic plaque is seen in the carotid bulb. Vertebral arteries: The vertebral arteries are widely patent bilaterally and codominant. Subclavian arteries: Patent bilaterally noting advanced atherosclerotic plaque and irregularity. Ther e is less than 50% stenosis of the left subclavian artery below the thoracic outlet. Intracranial vasculature: There is atherosclerotic calcification of the cavernous carotid and vertebr al arteries. The internal carotid arteries are patent at the skull base, as are the anterior and midd le cerebral arteries bilaterally. The vertebrobasilar system and posterior cerebral arteries are wide ly patent. The vertebral arteries are codominant. There is no aneurysm, high-grade stenosis, or focal vessel cut off seen throughout the intracranial circulation. Jugular veins: Patent bilaterally. Dural sinuses: Patent. Lung apices: Advanced emphysematous change is noted in the upper lobes. Soft tissues: The visualized pharyngeal soft tissues are normal in appearance noting angiographic pha se technique. The oropharyngeal airway appears widely patent. The salivary and thyroid glands are nor mal in appearance. No cervical lymphadenopathy is seen. Skeletal structures: The skeletal structures are osteopenic. The calvarium appears intact. The cervic al spine is maintained noting multilevel spondylosis. No lytic or blastic lesion is seen. Orbits: The bony orbits are intact. Orbital contents are normal as visualized noting bilateral ocular lens implants. Sinuses and mastoids: The paranasal sinuses are clear. There are trace mastoid effusions. IMPRESSION: 1. There is no hemorrhage, mass effect, or evidence of acute territorial ischemia by CT criteria. 2. Unremarkable CT angiogram of the brain. 3. Unremarkable CT angiogram of the neck. 4. Advanced emphysema. ACT 112: Negative or not required by law. Electronically signed by: Anibal Elder M.D. 04/28/2022 7:02 AM
--- NOTE | 2022-04-28 07:06 | Magnetic Resonance Report ---
MRI OF THE BRAIN WITHOUT IV CONTRAST CLINICAL HISTORY: Strokelike symptoms. COMPARISON STUDY: CT of the brain dated 04/27/2022. TECHNIQUE: MRI of the brain was performed utilizing various T1 and T2-weighted sequences in the axial , sagittal, and coronal planes. IV contrast was not administered for this examination. The examinatio n is significant compromised by motion artifact. FINDINGS: Brain parenchyma: There is age-related involutional change noting moderate subcortical and periventri cular microangiopathic disease. There is no hemorrhage or mass effect. There is no restricted diffusi on to suggest acute ischemia. Rojas-white matter differentiation is preserved. No extra-axial fluid co llection is seen. The cerebellar tonsils are normal in configuration. Ventricles, sulci, and cisterns: Prominent secondary to involutional change. Pituitary and sella: Unremarkable. Intracranial vasculature: Normal flow voids are maintained at the skull base. Orbits: The bony orbits are grossly intact. Orbital contents are normal in appearance noting bilatera l ocular lens implants. Sinuses and mastoids: There are bilateral mastoid effusions. The paranasal sinuses are clear. Calvarium: Unremarkable. Cervical cord: Partially visualized cervical spinal cord is normal in morphology and signal intensity . IMPRESSION: No acute intracranial abnormality noting a motion compromised examination. ACT 112: Negative or not required by law. Electronically signed by: Anibal Elder M.D. 04/28/2022 7:04 AM
[2022-04-28] MEDS: FORMOTEROL 20 MCG/2 ML VIAL INH SCH ×2 (07:14→19:45)
[2022-04-28] MEDS: LEVALBUTEROL 1.25MG/0.5ML NEB INH SCH ×4 (07:15→19:45)
[2022-04-28] MEDS: IPRATROPIUM BROMIDE NEB SOLN 0.02% 2.5 ML VIAL INH SCH ×4 (07:15→19:45)
[2022-04-28 07:56] LABS: Basophils # (auto) 0.06 K/uL (0-0.2); Basophils % (auto) 1.4 %; Eosinophils # (auto) 0.55 K/uL (0-0.5); Eosinophils % (auto) 12.6 %; Hemoglobin 10.2 g/dL (12.0-16.0); Immature Granulocytes # (auto) 0.02 K/uL (0.00-0.02); Immature Granulocytes % (auto) 0.5 %; Lymphocytes # (auto) 1.08 K/uL (1.2-3.4); Lymphocytes % (auto) 24.8 %; Mean Corpuscular Hemoglobin 31.1 pg (25-34); Mean Corpuscular Hgb Conc 31.9 g/dL (32-36); Mean Corpuscular Volume 97.6 fL (80-100); Mean Platelet Volume 9.7 fL (7.4-10.4); Monocytes % (auto) 13.8 %; Neutrophils # (auto) 2.05 K/uL (1.4-6.5); Neutrophils % (auto) 46.9 %; Platelet Count 419 K/uL (130-400); RDW Coefficient of Variation 12.2 % (11.5-14.5); RDW Standard Deviation 43.4 fL (36.4-46.3); Red Blood Count 3.28 M/uL (4.2-5.4); White Blood Count 4.36 K/uL (4.8-10.8)
--- NOTE | 2022-04-28 08:18 | XRay Report ---
SINGLE VIEW CHEST CLINICAL HISTORY: Transient ischemic attack FINDINGS: An AP, portable, upright chest radiograph is compared to study dated 03/26/2022 and correlate d with chest CT dated 11/30/2009. The heart is enlarged noting atherosclerotic calcification of the tho racic aorta. The pulmonary vasculature is noncongested. Advanced emphysema and chronic interstitial t hickening is similar to previous. There are scattered calcified granulomas. There is patchy airspace consolidation at the right lung base. Scarring/atelectasis is noted at the left lung base. The lungs and pleural spaces are clear. No pneumothorax is seen. The skeletal structures are osteopenic. There are healed left-sided rib fractures. IMPRESSION: 1. Cardiomegaly and emphysema. 2. Airspace consolidation is seen at the right lung base. Correlate clinically for evidence of pneumo rufino/aspiration pneumonitis. Radiographic follow-up to resolution is recommended ACT 112: Negative or not required by law. Electronically signed by: Anibal Elder M.D. 04/28/2022 8:16 AM
[2022-04-28 08:22] LABS: BUN Creatinine Ratio 13.8 (10-20); Calcium 8.9 mg/dl (8.5-10.1); Chol HDL Ratio 1.8 (0-5); Creatinine Clr Calc Pharmacy 55.4 ml/min; Est GFR (Non-African American) 88.9 ml/min; Potassium 4.3 mmol/L (3.5-5.1)
[2022-04-28] MEDS: CLOPIDOGREL BISULFATE 75 MG TAB PO SCH (08:51)
[2022-04-28] MEDS: ESCITALOPRAM OXALATE 10 MG TAB PO SCH (08:51)
[2022-04-28] MEDS: FERROUS SULFATE 325 MG TAB PO SCH ×2 (08:52→20:22)
[2022-04-28] MEDS: GABAPENTIN 600 MG TAB PO SCH ×3 (08:52→20:21)
[2022-04-28] MEDS: FAMOTIDINE 20 MG TAB PO SCH ×2 (08:52→20:21)
[2022-04-28] MEDS: PANTOprazole 40 MG TAB PO SCH (08:53)
[2022-04-28] MEDS: CYANOCOBALAMIN (B-12) 500 MCG TABLET PO SCH (08:53)
[2022-04-28] MEDS: ADVANCED PROBIOTIC 1250 MG CAPSULE PO SCH ×2 (08:53→20:20)
[2022-04-28 08:54] LABS: Estimated Average Glucose 94 mg/dl; Hemoglobin A1C 4.9 % (4.5-5.6)
[2022-04-28] MEDS: NICOTINE 14 MG/24 HR PATCH TD SCH (08:54)
[2022-04-28] MEDS: ENOXAPARIN INJ 30 MG/0.3 ML SYR SQ SCH (08:56)
[2022-04-28] MEDS: FLUTICASONE PROPIONATE NA SPR 16 GM BTL SCH (08:57)
[2022-04-28] MEDS: clonazePAM 0.5 MG TAB PO SCH ×3 (08:59→20:26)
[2022-04-28] MEDS ORDERED: XOPENEX/ATROVENT 1.25mg/0.5MG NEB COMBO NEB SCH (09:00)
[2022-04-28] MEDS: SUCRALFATE 1 GM TAB PO SCH ×2 (10:29→21:05)
[2022-04-28] MEDS: DOXYCYCLINE HYCLATE 100 MG CAP PO SCH ×2 (10:30→20:20)
--- NOTE | 2022-04-28 12:01 | Neurology Consultation ---
Date of Consultation April 28, 2022 Assessment & Plan (1) Acute CVA (cerebrovascular accident): 1. no acute findings on MRI 2. continue plavix 75 mg daily 3. optimize HTN, HLD DM LDL <70 4. TTE if not already done 5. PT/OT speech for discharge needs 6. antibiotic treatment to culture 7. this all may be related to her pneumonia 8. esph stricture will need to be addressed this may be aspiration pneumonia - speech for diet limitations Supervising Physician Co-Signing Physician Notes I have seen and discussed above patient with Dr Radha Bustamante, neurology. Discussed with Wallace CARDOZO. Did not see pt because of my error. TIA vs neuro sx related to infection. Continue vascular work-up.Will see pt tomorrow. MD Becca History of Present Illness Reason for Consultation: CVA Requesting Physician: Evens Charlton MD Attending Physician: Evens Charlton MD History of Present Illness Ana is a 76 year old female who is unsure why she was brought to the hospital. She presented to [facility] 04/27/22 with some minimal left-sided nasolabial fold droop but no other deficits are appreciated. She denies any current medical complaints. Patient denies numbness, tingling, weakness, vision changes,flulike illness. The long term at [facility] was contacted they are unsure when she was last known well but states she has some left-sided facial droop and had slurred speech and sent her to the ED. Her daughter is in the room. Her mother has been choking on food due to a stricture in her esophagus. She was found to have pneumonia and is having albuterol treatments. Her daughter is concerned because her tremor is also getting worse. there is a family history of tremor. denies CP, new bowel or bladder issues. Allergies Allergy/AdvReac Type Severity Reaction Status Date / Time metoclopramide Allergy Severe "lungs Verified 04/27/22 22:12 collapsed" cortisone Allergy Intermediate swelling Verified 04/27/22 22:12 salicylates Allergy Intermediate caused Verified 04/27/22 22:12 bleeding, can take EC aspirin Corticosteroids AdvReac Intermediate swelling Verified 04/27/22 22:12 (Glucocorticoids) Home Medications Medication Instructions Recorded Confirmed Type Lactobacillus acidoph-L.bulgaricus 1 tab PO BID 08/15/19 04/27/22 History 1 million cell chewable tablet (Lactinex) albuterol sulfate 90 mcg/actuation 2 puff INHALATION BID PRN 08/15/19 04/27/22 History aerosol inhaler (Ventolin HFA) clopidogrel 75 mg tablet (Plavix) 75 mg PO QAM 08/15/19 04/27/22 History cyanocobalamin (vitamin B-12) 500 500 mcg SUBLINGUAL QAM 08/15/19 04/27/22 History mcg sublingual tablet escitalopram oxalate 5 mg tablet 5 mg PO QAM 08/15/19 04/27/22 History (Lexapro) ferrous sulfate 325 mg (65 mg 325 mg PO BID 08/15/19 04/27/22 History iron) tablet fluticasone propionate 50 2 spray INTRANASAL DAILY PRN 08/15/19 04/27/22 History mcg/actuation nasal spray,suspension (Flonase Allergy Relief) gabapentin 600 mg tablet 600 mg PO TID 08/15/19 04/27/22 History (Neurontin) tramadol 50 mg tablet (Ultram) 50 mg PO Q6H PRN 08/15/19 04/27/22 History arformoterol 15 mcg/2 mL solution 15 mcg INHALATION BID 12/02/19 04/27/22 History for nebulization (Brovana) famotidine 20 mg tablet (Pepcid) 20 mg PO BID 12/02/19 04/27/22 History ipratropium bromide 17 2 puff INHALATION Q4H PRN 12/02/19 04/27/22 History mcg/actuation HFA aerosol inhaler (Atrovent HFA) mometasone 50 mcg/actuation nasal 2 spray INTRANASAL DAILY 12/02/19 04/27/22 History spray (Nasonex) sucralfate 1 gram tablet (Carafate) 1 g PO BID 12/02/19 04/27/22 History pantoprazole 40 mg tablet,delayed 40 mg PO QAM 12/04/19 04/27/22 History release (Protonix) diltiazem HCl 60 mg 60 mg PO QAM 02/17/22 04/27/22 History capsule,extended release 12 hr ondansetron HCl 8 mg tablet 8 mg PO Q8H PRN 02/17/22 04/27/22 History clonazepam 0.5 mg tablet 0.5 mg PO TID 03/25/22 04/27/22 History acetaminophen 325 mg tablet 650 mg PO Q6H PRN 04/27/22 04/27/22 History (Tylenol) guaifenesin 100 mg/5 mL oral liquid See Rx Instructions .ROUTE .COMPLEX 04/27/22 04/27/22 History ipratropium 0.5 mg-albuterol 3 mg 3 ml INHALATION .Q2-4H PRN 04/27/22 04/27/22 History (2.5 mg base)/3 mL nebulization soln ipratropium 0.5 mg-albuterol 3 mg 3 ml INHALATION QID 04/27/22 04/27/22 History (2.5 mg base)/3 mL nebulization soln nicotine 14 mg/24 hr daily 1 patch TRANSDERMAL DAILY 04/27/22 04/27/22 History transdermal patch protein supplement 1 ea PO QPM 04/27/22 04/27/22 History rosuvastatin 10 mg tablet 20 mg PO HS 04/27/22 04/27/22 History Patient History Medical History Anxiety Arthritis CAD (coronary artery disease) F/U DR Angélica LEONARDO Chronic obstructive pulmonary disease OXYGEN 3-4 L/MIN CONTINUOUSLY Diarrhea Difficulty swallowing GERD (gastroesophageal reflux disease) History of anemia History of esophageal dilatation History of GI bleed Hyperlipidemia Hypertension Osteoporosis PVD (peripheral vascular disease) SOB (shortness of breath) on exertion Surgical History H/O carotid endarterectomy R/L H/O hemorrhoidectomy H/O knee surgery H/O vascular surgery RIGHT ILIAC ARTERY STENT PLACEMENT History of appendectomy History of cardiac cath NO STENTS History of cataract surgery R/L History of colonoscopy History of esophagogastroduodenoscopy (EGD) Family History Other No family history of adverse response to anesthesia Social History Smoking Status: Current every day smoker Cigarettes Per Day: 5-10 CIG a day ADVISED; Second Hand Exposure: No; Do You Dip or Chew Tobacco: Yes; Hx Alcohol Use: Yes Alcohol type: beer Hx Substance Use: No Preferred Language: Romanian Communication Ability: Effective Sheet Fed Printer Required: No Beliefs That Will Affect Care: None marital status: / Current Living Situation: Long-Term Current Living Situation Comment: [facility] How many Children do You have: 1 Other Information That Helps Us Care for You: No Feels Safe at Home: Yes Safety Concerns: Feels Safe At This Time Assistive Devices: Oxygen - Continuous, Walker and Wheelchair Review of Systems Review of Systems: All systems reviewed & are unremarkable except as noted in HPI & below Physical Exam Physical Exam: Physical Exam: Constitutional: appearance thin ill appear Ears, Nose, Mouth and Throat: mucous membranes moist, no injection and skin normal, eyes normal Cardiovascular: normal S-1 and S-2 and regular rate and rhythm Respiratory: distant breath sound with wheezing, course breath sounds Musculoskeletal: no peripheral edema and good distal pulses Skin: no stigmata of neurocutaneous disease noted and normal and intact Eyes: extraocular muscles intact (EOMI) and pupils equal, round and reactive to light (PERRL) NEUROLOGIC EXAMINATION: Mental status: Alert and interactive Oriented to full date and location Oriented to person Speech broken speech due to SOB Cranial Nerves facial symmetry Reflexes: Deep tendon reflexes were symmetrical and graded 2/5. down going toes Sensory: intact to light cool touch Coordination: finger to nose Gait/Stance: Posture normal. Gait normal: with steady with steps, base, turning, tandem gait. walks with minimal assistance Motor: Negative for pronator drift of out stretched arms with eyes closed. Strength: generalized weakness, hand registered appraiser, biceps triceps 4+/5, hip flex 5/5 bilaterally Results & Data ([facility]) Vital Signs (Past 12 Hours) Vital Signs Temp Pulse Pulse Resp BP BP Pulse Ox 04/28/22 11:06 80 16 97 04/28/22 07:40 36.5 C 89 20 152/68 H 90 04/28/22 07:20 75 04/28/22 07:15 81 18 94 04/28/22 03:42 36.6 C 76 18 152/65 H 100 04/28/22 03:40 36.7 C 84 18 168/70 H 98 04/28/22 02:27 83 04/28/22 02:23 85 20 136/85 94 04/28/22 02:17 36.7 C 84 20 168/70 H 98 04/28/22 00:00 83 17 141/66 H 99 Laboratory Results Abnormal lab results 04/27/22 04/27/22 04/27/22 Range/Units 21:40 21:40 21:40 WBC 4.13 L (4.8-10.8) K/uL RBC 2.97 L (4.2-5.4) M/uL Hgb 9.1 L (12.0-16.0) g/dL Hct 28.5 L (37-47) % MCHC 31.9 L (32-36) g/dL Plt Count (130-400) K/uL Neut # (Auto) 1.34 L (1.4-6.5) K/uL Lymph # (Auto) (1.2-3.4) K/uL [place] # (Auto) 0.69 H (0.11-0.59) K/uL Eos # (Auto) 0.54 H (0-0.5) K/uL VBG pH (7.36-7.41) VBG pCO2 (38-50) mmHg Chloride 97 L (98-107) mmol/L Carbon Dioxide 35 H (21-32) mmol/L Creatinine 0.49 L (0.6-1.2) mg/dl BUN/Creatinine Ratio 20.4 H (10-20) POC Glucose (70-99) mg/dl Total Protein 5.8 L (6.0-8.3) gm/dl Globulin 2.1 L (2.5-4.0) gm/dl TSH 7.288 H (0.300-4.500) uIu/ml 04/27/22 04/27/22 04/28/22 Range/Units 22:10 22:57 07:17 WBC 4.36 L (4.8-10.8) K/uL RBC 3.28 L (4.2-5.4) M/uL Hgb 10.2 L (12.0-16.0) g/dL Hct 32.0 L (37-47) % MCHC 31.9 L (32-36) g/dL Plt Count 419 H (130-400) K/uL Neut # (Auto) (1.4-6.5) K/uL Lymph # (Auto) 1.08 L (1.2-3.4) K/uL [place] # (Auto) 0.60 H (0.11-0.59) K/uL Eos # (Auto) 0.55 H (0-0.5) K/uL VBG pH 7.42 H (7.36-7.41) VBG pCO2 60 H (38-50) mmHg Chloride (98-107) mmol/L Carbon Dioxide (21-32) mmol/L Creatinine (0.6-1.2) mg/dl BUN/Creatinine Ratio (10-20) POC Glucose 100 H (70-99) mg/dl Total Protein (6.0-8.3) gm/dl Globulin (2.5-4.0) gm/dl TSH (0.300-4.500) uIu/ml 04/28/22 Range/Units 07:17 WBC (4.8-10.8) K/uL RBC (4.2-5.4) M/uL Hgb (12.0-16.0) g/dL Hct (37-47) % MCHC (32-36) g/dL Plt Count (130-400) K/uL Neut # (Auto) (1.4-6.5) K/uL Lymph # (Auto) (1.2-3.4) K/uL [place] # (Auto) (0.11-0.59) K/uL Eos # (Auto) (0-0.5) K/uL VBG pH (7.36-7.41) VBG pCO2 (38-50) mmHg Chloride 97 L (98-107) mmol/L Carbon Dioxide 36 H (21-32) mmol/L Creatinine 0.58 L (0.6-1.2) mg/dl BUN/Creatinine Ratio (10-20) POC Glucose (70-99) mg/dl Total Protein (6.0-8.3) gm/dl Globulin (2.5-4.0) gm/dl TSH (0.300-4.500) uIu/ml Diagnostic Findings CT head CTA head/neck-There is no hemorrhage, mass effect, or evidence of acute territorial ischemia by CT criteria. . Unremarkable CT angiogram of the brain. . Unremarkable CT angiogram of the neck. Advanced emphysema. MRI brain-No acute intracranial abnormality noting a motion compromised examination.
[2022-04-28] MEDS: PIPERACILLIN/TAZOBACTAM 3.375 GM in DEXTROSE 5% 100 ML IV SCH ×2 (12:24→18:26)
--- NOTE | 2022-04-28 15:15 | Hospitalist Progress Note ---
Date of Service April 28, 2022 Assessment & Plan (1) Acute CVA (cerebrovascular accident): Plan: Healthcare associated pneumonia Possible aspiration --CXR:Cardiomegaly and emphysema. Airspace consolidation is seen at the right lung base. Correlate clinically for evidence of pneumonia/aspiration pneumonitis. Chronic dysphagia Procalcitonin pending Started on Zosyn, doxycycline Blood cultures not obtained at the time of admission Consider blood cultures if patient develops fever Continue oxygen supplementation as needed Strokelike symptoms Presented with right facial droop Possible TIA --MRI Brain:No acute intracranial abnormality noting a motion compromised examination. --Head/Neck CTA:There is no hemorrhage, mass effect, or evidence of acute territorial ischemia by CT criteria. Unremarkable CT angiogram of the brain. U nremarkable CT angiogram of the neck. --ECHO pending Continue Plavix, statin Added aspirin 81 mg daily Neurology consulted PT OT, speech eval Allow permissive hypertension Chronic respiratory failure secondary to COPD Chronic oxygen dependency On supplemental O2 Tobacco use Continue home inhalers, nebs CAD/PVD Continue aspirin, Plavix, statin as above Hypertension Resume Cardizem in AM Monitor Anemia of chronic disease Hemoglobin at baseline Monitor DVT Px: Lovenox SQ Code Status Full code Admission and Anticipated Discharge Date Admission Date: April 27, 2022 Subjective Patient is seen and examined at bedside States having cough, shortness of breath No new complaints Denies any chest pain, dizziness, nausea, abdominal pain Offers no other complaints Review of Systems Review of Systems: All systems reviewed & are unremarkable except as noted in Subjective Physical Exam Physical Exam: Physical Exam: Vitals signs as noted above General Appearance:Thin, frail, Chronic ill, +Chronic Tremors, no apparent distress Head: normocephalic, Atraumatic Eyes: normal inspection, EOMI Neck: supple, Trachea midline Respiratory/Chest: Diminished breath sounds, CTA Cardiovascular: S1, S2, No murmur Abdomen/GI:Soft, Non tender, Bowel sounds present Extremities/Musculoskeletal:normal inspection, no edema Neurologic/Psych:AAOX3, grossly no focal neurological deficits Skin: normal color, warm Results & Data Results & Data ([facility]) Vital Signs (Past 12 Hours) Vital Signs Temp Pulse Pulse Resp BP Pulse Ox Pulse Ox 04/28/22 11:37 93 04/28/22 11:06 80 16 97 04/28/22 07:40 36.5 C 89 20 152/68 H 90 04/28/22 07:20 75 04/28/22 07:15 81 18 94 04/28/22 03:42 36.6 C 76 18 152/65 H 100 04/28/22 03:40 36.7 C 84 18 168/70 H 98 Laboratory Results Short CBC 04/27/22 04/28/22 Range/Units 21:40 07:17 WBC 4.13 L 4.36 L (4.8-10.8) K/uL Hgb 9.1 L 10.2 L (12.0-16.0) g/dL Hct 28.5 L 32.0 L (37-47) % Plt Count 375 419 H (130-400) K/uL BMP 04/27/22 04/28/22 21:40 07:17 Sodium 137 137 Potassium 3.8 4.3 Chloride 97 L 97 L Carbon Dioxide 35 H 36 H BUN 10 8 Creatinine 0.49 L 0.58 L Glucose 96 91 Calcium 9.0 8.9 Liver Function 04/27/22 Range/Units 21:40 Total Bilirubin 0.2 (0.2-1.0) mg/dl AST 15 (13-39) U/L ALT 9 (7-52) U/L Alkaline Phosphatase 37 (34-104) U/L Albumin 3.7 (3.4-5.0) gm/dl Urine 04/27/22 Range/Units 23:30 Urine Color Yellow Urine Appearance Clear (Clear) Urine pH 7.5 (4.5-7.5) Ur Specific [place] 1.013 (1.000-1.030) Urine Protein Negative (Negative) Urine Glucose (UA) Negative (Negative)
[2022-04-28] MEDS: ROSUVASTATIN CALCIUM 20 MG TAB PO SCH (20:21)
[2022-04-28] MEDS: PROSOURCE NO CARB 30 ML/PKT PO SCH (20:22)
[2022-04-29] MEDS: PIPERACILLIN/TAZOBACTAM 3.375 GM in DEXTROSE 5% 100 ML IV SCH ×2 (01:23→10:33)
--- NOTE | 2022-04-29 06:12 | Electrocardiogram Report ---
Test Reason : Blood Pressure : / mmHG Vent. Rate : 090 BPM Atrial Rate : 090 BPM P-R Int : 150 ms QRS Dur : 088 ms QT Int : 398 ms P-R-T Axes : 036 027 063 degrees QTc Int : 486 ms Normal sinus rhythm Cannot rule out Anterior infarct (cited on or before 24-MAR-2022) Prolonged QT ST elevation, consider early repolarization, pericarditis, or injury Abnormal ECG When compared with ECG of 26-MAR-2022 05:57, Diffuse ST elevation is now present Confirmed by Conrad Cano ([id number]) on 04/29/2022 6:11:34 AM Referred By: REFERRED SELF Confirmed By:Conrad Cano
[2022-04-29] MEDS: FORMOTEROL 20 MCG/2 ML VIAL INH SCH ×2 (07:05→19:20)
[2022-04-29] MEDS: IPRATROPIUM BROMIDE NEB SOLN 0.02% 2.5 ML VIAL INH SCH ×4 (07:05→19:20)
[2022-04-29] MEDS: LEVALBUTEROL 1.25MG/0.5ML NEB INH SCH ×4 (07:05→19:20)
[2022-04-29] MEDS ORDERED: PERFLUTREN LIPID MICROSPHERE (DEFINITY) IV ONE (07:14)
[2022-04-29] MEDS: FLUTICASONE PROPIONATE NA SPR 16 GM BTL SCH (07:45)
[2022-04-29] MEDS: NICOTINE 14 MG/24 HR PATCH TD SCH (07:46)
[2022-04-29] MEDS: ENOXAPARIN INJ 30 MG/0.3 ML SYR SQ SCH (07:46)
[2022-04-29] MEDS: ADVANCED PROBIOTIC 1250 MG CAPSULE PO SCH ×2 (07:47→20:42)
[2022-04-29] MEDS: clonazePAM 0.5 MG TAB PO SCH ×3 (07:47→20:54)
[2022-04-29] MEDS: FERROUS SULFATE 325 MG TAB PO SCH ×2 (07:47→20:43)
[2022-04-29] MEDS: GABAPENTIN 600 MG TAB PO SCH ×3 (07:47→20:43)
[2022-04-29] MEDS: FAMOTIDINE 20 MG TAB PO SCH ×2 (07:47→20:43)
[2022-04-29] MEDS: ASPIRIN 81 MG ECTAB PO SCH (07:47)
[2022-04-29] MEDS: CLOPIDOGREL BISULFATE 75 MG TAB PO SCH (07:47)
[2022-04-29] MEDS: CYANOCOBALAMIN (B-12) 500 MCG TABLET PO SCH (07:47)
[2022-04-29] MEDS: DOXYCYCLINE HYCLATE 100 MG CAP PO SCH ×2 (07:47→20:43)
[2022-04-29] MEDS: PANTOprazole 40 MG TAB PO SCH (07:47)
[2022-04-29] MEDS: ESCITALOPRAM OXALATE 10 MG TAB PO SCH (07:47)
[2022-04-29 08:10] LABS: Basophils # (auto) 0.08 K/uL (0-0.2); Basophils % (auto) 1.6 %; Eosinophils # (auto) 0.51 K/uL (0-0.5); Eosinophils % (auto) 10.3 %; Hematocrit (blood only) 33.3 % (37-47); Hemoglobin 10.4 g/dL (12.0-16.0); Immature Granulocytes # (auto) 0.01 K/uL (0.00-0.02); Immature Granulocytes % (auto) 0.2 %; Lymphocytes # (auto) 0.92 K/uL (1.2-3.4); Lymphocytes % (auto) 18.6 %; Mean Corpuscular Hemoglobin 30.4 pg (25-34); Mean Corpuscular Hgb Conc 31.2 g/dL (32-36); Mean Corpuscular Volume 97.4 fL (80-100); Mean Platelet Volume 9.9 fL (7.4-10.4); Monocytes # (auto) 0.66 K/uL (0.11-0.59); Monocytes % (auto) 13.3 %; Neutrophils # (auto) 2.77 K/uL (1.4-6.5); Platelet Count 426 K/uL (130-400); RDW Coefficient of Variation 12.5 % (11.5-14.5); RDW Standard Deviation 44.3 fL (36.4-46.3); Red Blood Count 3.42 M/uL (4.2-5.4); White Blood Count 4.95 K/uL (4.8-10.8)
[2022-04-29 08:34] LABS: BUN Creatinine Ratio 21.5 (10-20); Calcium 9.3 mg/dl (8.5-10.1); Creatinine Clr Calc Pharmacy 47.9 ml/min; Est GFR (African American) 99.3 ml/min; Est GFR (Non-African American) 85.6 ml/min; Magnesium 1.6 mg/dl (1.7-2.4); Potassium 3.6 mmol/L (3.5-5.1)
[2022-04-29 09:03] LABS: Cdiff Antigen Positive; Cdiff Toxin A+B Negative Cdiff Toxin (Negative)
[2022-04-29] MEDS: SUCRALFATE 1 GM TAB PO SCH ×2 (09:33→21:14)
--- NOTE | 2022-04-29 12:14 | Hospitalist Progress Note ---
Date of Service April 29, 2022 Assessment & Plan (1) Acute CVA (cerebrovascular accident): Plan: per Dr. Charlton's notes with addendum: Healthcare associated pneumonia Possible aspiration --CXR:Cardiomegaly and emphysema. Airspace consolidation is seen at the right lung base. Correlate clinically for evidence of pneumonia/aspiration pneumonitis. Chronic dysphagia Procalcitonin pending Started on Zosyn, doxycycline Blood cultures not obtained at the time of admission Consider blood cultures if patient develops fever Continue oxygen supplementation as needed 7/ cough symptoms improving sputum culture ordered change Zosyn to Levaquin continue Doxycycline Speech Tx: easy to chew diet Diarrhea negative for C diff toxin PRN Imodium probiotics ordered Strokelike symptoms Presented with right facial droop Possible TIA --MRI Brain:No acute intracranial abnormality noting a motion compromised examination. --Head/Neck CTA:There is no hemorrhage, mass effect, or evidence of acute territorial ischemia by CT criteria. Unremarkable CT angiogram of the brain. Unremarkable CT angiogram of the neck. --ECHO pending Continue Plavix, statin Added aspirin 81 mg daily Neurology consulted PT OT, speech eval Allow permissive hypertension 7/6 R facial droop resolved speech back to baseline per patient, denies dysphagia Echo: EF > 70% small organized apical and right lateral pericardial effusion no tamponade no interatrial shunt Aspirin added to usual Plavix and Statin continue Pantoprazole, patient reports GI upset with ASA in the past Chronic respiratory failure secondary to COPD Chronic oxygen dependency On supplemental O2 Tobacco use Continue home inhalers, nebs CAD/PVD Continue Aspirin, Plavix, statin as above Hypertension on Cardizem Monitor Anemia of chronic disease Hemoglobin at baseline Monitor DVT Px: Lovenox SQ Code Status Full code Disposition anticipate return to SNF tomorrow Admission and Anticipated Discharge Date Admission Date: April 27, 2022 Subjective ff up for pneumonia, possible TIA, etc seen resting in bed, sitting up in good spirits, joking states she is feeling better less cough, and sputum production breathing is back to baseline no chest pain, dyspnea, palpitations, dizziness reports 2-3 episodes of diarrhea today no abdominal pain, nausea/vomiting, fever/chills states her speech is at baseline, denies problems with swallowing food no other symptoms Review of Systems Review of Systems: all noted and negative except for above Physical Exam Physical Exam: General- oriented x 3, not in distress, speaks in sentences with no effort or accessory muscle use Eyes- anicteric Neck- no JVD Lungs- diminished clear breath sounds bilaterally, no rales/wheezes Heart- normal rate, regular rhythm; no murmurs Abdomen- normal bowel sounds, nondistended, soft, nontender Extremities- no pretibial edema, no calf tenderness Neuro- alert, oriented x 3; no gross focal neurologic deficits (+) tardive dyskinesia Skin- warm & dry Results & Data Results & Data ([facility]) Vital Signs (Past 12 Hours) Vital Signs Temp Pulse Resp BP Pulse Ox 04/29/22 11:40 37.1 C 107 H 14 118/65 95 04/29/22 11:12 78 18 94 04/29/22 07:51 36.9 C 92 H 16 138/69 91 04/29/22 02:55 36.6 C 94 H 18 100/60 98 all noted and reviewed including below
[2022-04-29] MEDS: LOPERAMIDE HCL 2 MG CAP PO PRN ×2 (12:35→20:54)
[2022-04-29] MEDS ORDERED: levoFLOXacin 500 MG TAB PO SCH (13:00)
[2022-04-29] MEDS ORDERED: LEVALBUTEROL HCL 1.25 MG/3 ML NEB ONE (15:29)
--- NOTE | 2022-04-29 16:04 | Neurology Progress Note ---
Date of Service April 29, 2022 Assessment & Plan (1) Acute CVA (cerebrovascular accident): Plan: 1. no acute findings on MRI 2. continue plavix 75 mg daily- no evidence this event was stroke or TIA - likely all related to her ongoing breathing issues and pneumonia 3. optimize HTN, HLD DM LDL <70 4. TTE >70% EF, no ASD 5. PT/OT speech for discharge needs 6. antibiotic treatment to culture 7. this all may be related to her pneumonia 8. esph stricture will need to be addressed this may be aspiration pneumonia - speech for diet limitations ok to discharge once medically stable no neurology follow up needed will see her PRN Admission and Anticipated Discharge Date Admission Date: April 27, 2022 Supervising Physician Co-Signing Physician Notes I have seen and discussed above patient with Dr Radha Bustamante, neurology. Patient seen and examined. She reports that her speech has been mildly dysarthric of relatively longstanding. She is a dentulous currently and reports that her speech has not been entirely clear for some time. Patient had reported facial droop. All of this in the setting of a newly diagnosed pneumonia. MRI of the brain showing no acute infarction CTA of the head showing no high-grade stenosis. I suspect this patient had some fluctuation in her neurologic exam re lated to infection. In the absence of new radiographic event or clear lateralizing transient ischemic attack I would not change her medicine for stroke prevention. She is on Plavix and gives a history of GI bleed with aspirin. 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 We will sign off Subjective Ana is a 76 year old female who is unsure why she was brought to the hospital. She presented to [facility] 04/27/22 with some minimal left-sided nasolabial fold droop but no other deficits are appreciated. She denies any current medical complaints. Patient denies numbness, tingling, weakness, vision changes,flulike illness. The senior living at [facility] was contacted they are unsure when she was last known well but states she has some left-sided facial droop and had slurred speech and sent her to the ED. Her daughter is in the room. Her mother has been choking on food due to a stricture in her esophagus. She was found to have pneumonia and is having albuterol treatments. Her daughter is concerned because her tremor is also getting worse. there is a family history of tremor. denies CP, new bowel or bladder issues. Today she is feeling much better. She would like to go home. Review of Systems Review of Systems: All systems reviewed & are unremarkable except as noted in HPI & below Physical Exam Physical Exam: Physical Exam: Constitutional: appearance thin ill appear Ears, Nose, Mouth and Throat: mucous membranes moist, no injection and skin normal, eyes normal Cardiovascular: normal S-1 and S-2 and regular rate and rhythm Respiratory: distant breath sound with wheezing, course breath sounds, no longer coughing Musculoskeletal: no peripheral edema and good distal pulses Skin: no stigmata of neurocutaneous disease noted and normal and intact Eyes: extraocular muscles intact (EOMI) and pupils equal, round and reactive to light (PERRL) NEUROLOGIC EXAMINATION: Mental status: Alert and interactive Oriented to full date and location Oriented to person Speech normal speech pattern Cranial Nerves facial symmetry Reflexes: Deep tendon reflexes were symmetrical and graded 2/5. down going toes Sensory: intact to light cool touch Coordination: finger to nose Gait/Stance: Posture normal. Gait normal: with steady with steps, base, turning, tandem gait. walks with minimal assistance Motor: Negative for pronator drift of out stretched arms with eyes closed. 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, biceps triceps 4+/5, hip flex 5/5 bilaterally Results & Data ([facility]) Vital Signs (Past 12 Hours) Vital Signs Temp Pulse Resp BP Pulse Ox 04/29/22 15:50 36.9 C 100 H 16 118/57 L 96 04/29/22 15:31 77 17 95 04/29/22 11:40 37.1 C 107 H 14 118/65 95 04/29/22 11:12 78 18 94 04/29/22 07:51 36.9 C 92 H 16 138/69 91 Laboratory Results Abnormal lab results 04/29/22 04/29/22 04/29/22 Range/Units 06:20 06:39 06:39 RBC 3.42 L (4.2-5.4) M/uL Hgb 10.4 L (12.0-16.0) g/dL Hct 33.3 L (37-47) % MCHC 31.2 L (32-36) g/dL Plt Count 426 H (130-400) K/uL Lymph # (Auto) 0.92 L (1.2-3.4) K/uL [place] # (Auto) 0.66 H (0.11-0.59) K/uL Eos # (Auto) 0.51 H (0-0.5) K/uL Chloride 97 L (98-107) mmol/L Carbon Dioxide 35 H (21-32) mmol/L BUN/Creatinine Ratio 21.5 H (10-20) Magnesium 1.6 L (1.7-2.4) mg/dl Stl C. diff Tox B Gene Positive Cdiff Gene H (Neg) Diagnostic Findings TTE >70% EF no ASD
[2022-04-29] MEDS: ROSUVASTATIN CALCIUM 20 MG TAB PO SCH (20:43)
[2022-04-29] MEDS: PROSOURCE NO CARB 30 ML/PKT PO SCH (20:44)
[2022-04-30] MEDS: LOPERAMIDE HCL 2 MG CAP PO PRN ×3 (06:41→10:44)
[2022-04-30] MEDS: FORMOTEROL 20 MCG/2 ML VIAL INH SCH (06:53)
[2022-04-30] MEDS: IPRATROPIUM BROMIDE NEB SOLN 0.02% 2.5 ML VIAL INH SCH ×3 (06:55→15:50)
[2022-04-30] MEDS: LEVALBUTEROL 1.25MG/0.5ML NEB INH SCH ×3 (06:55→15:50)
[2022-04-30 07:08] LABS: Basophils # (auto) 0.08 K/uL (0-0.2); Basophils % (auto) 1.6 %; Eosinophils % (auto) 9.9 %; Hemoglobin 10.4 g/dl (12.0-16.0); Immature Granulocytes # (auto) 0.01 K/uL (0.00-0.02); Immature Granulocytes % (auto) 0.2 %; Lymphocytes # (auto) 1.32 K/uL (1.2-3.4); Lymphocytes % (auto) 26.2 %; Mean Corpuscular Hemoglobin 30.9 pg (25.0-34.0); Mean Corpuscular Hgb Conc 31.5 g/dL (32.0-36.0); Mean Corpuscular Volume 97.9 fL (80.0-100.0); Mean Platelet Volume 9.7 fL (9.4-12.3); Monocytes # (auto) 0.72 K/uL (0.24-0.82); Monocytes % (auto) 14.3 %; Neutrophils % (auto) 47.8 %; Platelet Count 355 K/uL (130-400); RDW Coefficient of Variation 11.8 % (11.5-14.5); RDW Standard Deviation 42.5 fL (36.4-46.3); Red Blood Count 3.37 M/uL (3.93-5.22); White Blood Count 5.03 K/ul (4.8-10.8)
[2022-04-30 07:24] LABS: BUN Creatinine Ratio 29.4 (10-20); Creatinine Clr Calc Pharmacy 61.1 ml/min; Est GFR (African American) 107.5 ml/min; Est GFR (Non-African American) 92.8 ml/min
[2022-04-30] MEDS: FERROUS SULFATE 325 MG TAB PO SCH (08:04)
[2022-04-30] MEDS: GABAPENTIN 600 MG TAB PO SCH ×2 (08:04→13:27)
[2022-04-30] MEDS: DOXYCYCLINE HYCLATE 100 MG CAP PO SCH (08:04)
[2022-04-30] MEDS: FAMOTIDINE 20 MG TAB PO SCH (08:04)
[2022-04-30] MEDS: CYANOCOBALAMIN (B-12) 500 MCG TABLET PO SCH (08:05)
[2022-04-30] MEDS: ADVANCED PROBIOTIC 1250 MG CAPSULE PO SCH (08:05)
[2022-04-30] MEDS: PANTOprazole 40 MG TAB PO SCH (08:05)
[2022-04-30] MEDS: FLUTICASONE PROPIONATE NA SPR 16 GM BTL SCH (08:05)
[2022-04-30] MEDS: ENOXAPARIN INJ 30 MG/0.3 ML SYR SQ SCH (08:05)
[2022-04-30] MEDS: ASPIRIN 81 MG ECTAB PO SCH (08:06)
[2022-04-30] MEDS: CLOPIDOGREL BISULFATE 75 MG TAB PO SCH (08:06)
[2022-04-30] MEDS: ESCITALOPRAM OXALATE 10 MG TAB PO SCH (08:06)
[2022-04-30] MEDS: NICOTINE 14 MG/24 HR PATCH TD SCH (08:07)
[2022-04-30] MEDS: clonazePAM 0.5 MG TAB PO SCH ×2 (08:10→13:26)
[2022-04-30] MEDS: SUCRALFATE 1 GM TAB PO SCH (10:45)
[2022-04-30] MEDS ORDERED: levoFLOXacin 500 MG TAB PO SCH (11:00)
[2022-04-30] MEDS ORDERED: levoFLOXacin 750 MG TAB PO SCH (13:00)
--- NOTE | 2022-04-30 13:47 | Hospitalist Progress Note ---
Date of Service April 30, 2022 Assessment & Plan (1) Acute CVA (cerebrovascular accident): Plan: Healthcare associated pneumonia Possible aspiration --CXR:Cardiomegaly and emphysema. Airspace consolidation is seen at the right lung base. Correlate clinically for evidence of pneumonia/aspiration pneumonitis. Chronic dysphagia Procalcitonin negative Started on Zosyn, doxycycline Blood cultures not obtained at the time of admission Continue oxygen supplementation as needed / cough symptoms improving sputum culture ordered change Zosyn to Levaquin continue Doxycycline Speech Tx: easy to chew diet Follow-up with speech therapist at [facility] Diarrhea negative for C diff toxin PRN Imodium probiotics ordered Strokelike symptoms Presented with right facial droop Possible TIA --MRI Brain:No acute intracranial abnormality noting a motion compromised examination. --Head/Neck CTA:There is no hemorrhage, mass effect, or evidence of acute territorial ischemia by CT criteria. Unremarkable CT angiogram of the brain. Unremarkable CT angiogram of the neck. --ECHO LV is hyperdynamic. EF greater than 70%. Small, organized apical and right lateral pericardial effusion. There are no echo cardiographic indications of cardiac tamponade. Injection of contrast documented no interatrial shunt. Continue Plavix, statin Neurology consulted -no medication changes recommended PT OT, speech eval 04/29 R facial droop resolved speech back to baseline per patient, denies dysphagia Echo: EF > 70% small organized apical and right lateral pericardial effusion no tamponade no interatrial shunt continue Pantoprazole, patient reports GI upset with ASA in the past Chronic respiratory failure secondary to COPD Chronic oxygen dependency On supplemental O2 Tobacco use Continue home inhalers, nebs CAD/PVD Continue Aspirin, Plavix, statin as above Hypertension on Cardizem Monitor Anemia of chronic disease Hemoglobin at baseline Monitor DVT Px: Lovenox SQ Code Status Full code Disposition anticipate return to SNF Admission and Anticipated Discharge Date Admission Date: April 27, 2022 Subjective Patient seen in follow-up of possible strokelike symptoms, pneumonia Currently laying in bed, in no acute distress, eager to be discharged Denies any fevers, chills, chest pain, increased shortness of breath Denies abdominal pain or much difficulty with swallowing Per speech eval, patient should follow-up with speech therapist at [facility] Patient states she is supposed to follow-up with GI as well as outpt Review of Systems Review of Systems: All systems reviewed & are unremarkable except as noted in Subjective Physical Exam Physical Exam: General- oriented x 3, not in distress, speaks in sentences with no effort or accessory muscle use Eyes- anicteric Neck- supple, no JVD Lungs- diminished breath sounds bilaterally, no rales/wheezes Heart- normal rate, regular rhythm; no murmurs Abdomen- normal bowel sounds, nondistended, soft, nontender Extremities- no pretibial edema, no calf tenderness Neuro- alert, oriented x 3; no gross focal neurologic deficits (+) tremor Skin- warm & dry Results & Data Results & Data ([facility]) Vital Signs (Past 12 Hours) Vital Signs Temp Pulse Pulse Resp BP Pulse Ox 04/30/22 11:16 80 16 94 04/30/22 10:55 36.6 C 82 12 109/64 94 04/30/22 09:41 85 04/30/22 07:46 36.6 C 97 H 12 119/64 91 04/30/22 06:55 91 H 18 93 04/30/22 03:31 36.7 C 98 H 20 116/62 91 Laboratory Results 04/30/22 04/30/22 Range/Units 06:46 06:46 WBC 5.03 (4.8-10.8) K/ul RBC 3.37 L (3.93-5.22) M/uL Hgb 10.4 L (12.0-16.0) g/dl Hct 33.0 L (34.1-44.9) % MCV 97.9 (80.0-100.0) fL MCH 30.9 (25.0-34.0) pg MCHC 31.5 L (32.0-36.0) g/dL RDW Std Deviation 42.5 (36.4-46.3) fL RDW Coeff of Renetta 11.8 (11.5-14.5) % Plt Count 355 (130-400) K/uL MPV 9.7 (9.4-12.3) fL Immature Gran % (Auto) 0.2 % Neut % (Auto) 47.8 % Lymph % (Auto) 26.2 % [place] % (Auto) 14.3 % Eos % (Auto) 9.9 % Baso % (Auto) 1.6 % Neut # (Auto) 2.40 (1.4-6.5) K/uL Lymph # (Auto) 1.32 (1.2-3.4) K/uL [place] # (Auto) 0.72 (0.24-0.82) K/uL Eos # (Auto) 0.50 (0-0.50) K/uL Baso # (Auto) 0.08 (0-0.2) K/uL Immature Gran # (Auto) 0.01 (0.00-0.02) K/uL Sodium 137 (136-145) mmol/L Potassium 4.0 (3.5-5.1) mmol/L Chloride 98 (98-107) mmol/L Carbon Dioxide 36 H (21-32) mmol/L Anion Gap 3 (3-11) BUN 15 (6-23) mg/dl Creatinine 0.51 L (0.6-1.2) mg/dl Est Cr Clr Drug Dosing 61.1 ml/min Est GFR ( Amer) 107.5 ml/min Est GFR (Non-Af Amer) 92.8 ml/min BUN/Creatinine Ratio 29.4 H (10-20) Glucose 103 H (70-99(Fasting)) mg/dl Calcium 9.0 (8.5-10.1) mg/dl Medications Administered Current Inpatient Medications Acetaminophen (Acetaminophen 325 Mg Tab) 650 mg PO Q6H PRN PRN Reason: Pain or Fever Stop: 05/28/22 02:29 Aspirin (Aspirin 81 Mg Ectab) 81 mg PO [facility] Stop: 05/29/22 08:59 Last Admin: 04/30/22 08:06 Dose: 81 mg Documented by: Clonazepam (Clonazepam 0.5 Mg Tab) 0.5 mg PO TID [facility] Stop: 05/28/22 08:59 Last Admin: 04/30/22 13:26 Dose: 0.5 mg Documented by: Clopidogrel Bisulfate (Clopidogrel Bisulfate 75 Mg Tab) 75 mg PO [facility] Stop: 05/28/22 08:59 Last Admin: 04/30/22 08:06 Dose: 75 mg Documented by: Cyanocobalamin (Cyanocobalamin (B-12) 500 Mcg Tablet) 500 mcg PO [facility] Stop: 05/28/22 08:59 Last Admin: 04/30/22 08:05 Dose: 500 mcg Documented by: Diltiazem HCl (Diltiazem Sr 60 Mg Cap) 60 mg PO QAM [facility] Stop: 05/29/22 08:59 Last Admin: 04/30/22 08:06 Dose: 60 mg Documented by: Doxycycline Hyclate (Doxycycline Hyclate 100 Mg Cap) 100 mg PO BID [facility] Stop: 05/05/22 08:59 Last Admin: 04/30/22 08:04 Dose: 100 mg Documented by: Enoxaparin Sodium (Enoxaparin Inj 30 Mg/0.3 Ml Syr) 30 mg SQ QAM [facility] Stop: 05/28/22 08:59 Last Admin: 04/30/22 08:05 Dose: 30 mg Documented by: Escitalopram Oxalate (Escitalopram Oxalate 10 Mg Tab) 5 mg PO QAM [facility] Stop: 05/28/22 08:59 Last Admin: 04/30/22 08:06 Dose: 5 mg Documented by: Famotidine (Famotidine 20 Mg Tab) 20 mg PO BID [facility] Stop: 05/28/22 08:59 Last Admin: 04/30/22 08:04 Dose: 20 mg Documented by: Ferrous Sulfate (Ferrous Sulfate 325 Mg Tab) 325 mg PO BID [facility] Stop: 05/28/22 08:59 Last Admin: 04/30/22 08:04 Dose: 325 mg Documented by: Fluticasone Propionate (Fluticasone Propionate Na Spr 16 Gm Btl) 2 sprays NA DAILY PRN PRN Reason: Congestion Stop: 05/28/22 02:29 Fluticasone Propionate (Fluticasone Propionate Na Spr 16 Gm Btl) 2 sprays NA DAILY [facility] Stop: 05/28/22 08:59 Last Admin: 04/30/22 08:05 Dose: 2 sprays Documented by: Formoterol Fumarate (Formoterol 20 Mcg/2 Ml Vial) 20 mcg INH BIDR [facility] Stop: 05/28/22 06:59 Last Admin: 04/30/22 06:53 Dose: 20 mcg Documented by: Gabapentin (Gabapentin 600 Mg Tab) 600 mg PO TID [facility] Stop: 05/28/22 08:59 Last Admin: 04/30/22 13:27 Dose: 600 mg Documented by: Promethazine HCl 6.25 mg/ (Sodium Chloride) 50.25 mls @ 201 mls/hr IV Q6H PRN PRN Reason: Nausea And Vomiting Stop: 05/28/22 02:29 Ipratropium Alliance (Ipratropium Alliance Neb Soln 0.02% 2.5 Ml Vial) 0.5 mg INH QIDR [facility] Stop: 05/28/22 06:59 Last Admin: 04/30/22 11:16 Dose: 0.5 mg Documented by: Lactobacillus Acidophilus (Advanced Probiotic 1250 Mg Capsule) 2 cap PO BID [facility] Stop: 05/28/22 08:59 Last Admin: 04/30/22 08:05 Dose: 2 cap Documented by: Levalbuterol HCl (Levalbuterol 1.25mg/0.5ml Neb) 1.25 mg INH QIDR [facility] Stop: 05/28/22 06:59 Last Admin: 04/30/22 11:16 Dose: 1.25 mg Documented by: Levofloxacin (Levofloxacin 750 Mg Tab) 750 mg PO Q24H [facility] Stop: 05/07/22 12:59 Loperamide HCl (Loperamide Hcl 2 Mg Cap) 2 mg PO UD PRN PRN Reason: Diarrhea Stop: 05/29/22 11:52 Last Admin: 04/30/22 10:44 Dose: 2 mg Documented by: Miscellaneous (Remove Nicoderm Patch) 1 ea N/A QAM [facility] Stop: 05/28/22 08:59 Last Admin: 04/30/22 08:07 Dose: 1 ea Documented by: Nicotine (Nicotine 14 Mg/24 Hr Patch) 14 mg TD DAILY [facility] Stop: 05/28/22 08:59 Last Admin: 04/30/22 08:07 Dose: 14 mg Documented by: Nutritional Formula (Prosource No Carb 30 Ml/Pkt) 30 ml PO QPM [facility] Stop: 05/28/22 20:59 Last Admin: 04/29/22 20:44 Dose: 30 ml Documented by: Pantoprazole Sodium (Pantoprazole 40 Mg Tab) 40 mg PO QAM [facility] Stop: 05/28/22 08:59 Last Admin: 04/30/22 08:05 Dose: 40 mg Documented by: Rosuvastatin Calcium (Rosuvastatin Calcium 20 Mg Tab) 20 mg PO HS [facility] Stop: 05/28/22 20:59 Last Admin: 04/29/22 20:43 Dose: 20 mg Documented by: Sucralfate (Sucralfate 1 Gm Tab) 1 gm PO BID@1000,2200 [facility] Stop: 05/28/22 09:59 Last Admin: 04/30/22 10:45 Dose: 1 gm Documented by: Tramadol HCl (Tramadol Hcl 50 Mg Tablet) 25 - 50 mg PO Q4H PRN PRN Reason: Pain Stop: 05/28/22 02:29
--- NOTE | 2022-04-30 14:00 | Discharge Summary ---
Date of Service April 30, 2022 Admission HPI Per Admitting Provider History obtained from patient and records. History somewhat limited from patient secondary to dysarthria. Medical history significant for chronic respiratory failure secondary to COPD on supplemental O2, CAD/PVD as per records, hypertension, chronic anemia baseline hemoglobin of 9), past tobacco abuse Recent admission last month for COPD exacerbation. Patient discharged to [facility] for rehab. Patient noted worsening junky cough symptoms the last few days. No unusual shortness of breath. Admits to coughing with meals/water intake if she is not careful. Patient noted to have right facial droop and slurred speech a few hours ago. Undetermined time when patient was last known to be well. Patient brought to the ER for evaluation. Ceftriaxone and Azithromycin given at the ER for pneumonia. MEDICAL HISTORY: As above. SURGERIES: vascular procedures, carotid endarterectomy, knee surgery, hysterectomy, oophorectomy, hemorrhoidectomy, appendectomy. FAMILY HISTORY: heart disease, stroke PERSONAL AND SOCIAL HISTORY: Past tobacco abuse. No chronic intake of alcoholic beverages. 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 Admission Exam Per Admitting Provider GENERAL: Comfortable, chronically ill, dysarthric, no respiratory distress SKIN: Pallor , warm HEENT: Pale palpebral conjunctivae, no ptosis, right facial droop, dry buccal m ucosa, nasal cannula in place NECK : Supple, no tenderness CHEST : Decreased breath sounds, no tenderness HEART : RRR, no obvious murmurs ABDOMEN: no distention, nontender EXTREMITIES : No LE swelling/tenderness, no other conspicuous deformities noted NEUROLOGIC : Coherent, right facial asymmetry, dysarthric, MMTs BUE/BLE 4/5, no other gross focality Principal Diagnosis Strokelike symptoms, pneumonia Discharge Exam General- oriented x 3, not in distress, speaks in sentences with no effort or accessory muscle use Eyes- anicteric Neck- supple, no JVD Lungs- diminished breath sounds bilaterally, no rales/wheezes Heart- normal rate, regular rhythm; no murmurs Abdomen- normal bowel sounds, nondistended, soft, nontender Extremities- no pretibial edema, no calf tenderness Neuro- alert, oriented x 3; no gross focal neurologic deficits (+) tremor Skin- warm & dry Discharge Data Allergies Allergy/AdvReac Type Severity Reaction Status Date / Time metoclopramide Allergy Severe "lungs Verified 04/27/22 22:12 collapsed" cortisone Allergy Intermediate swelling Verified 04/27/22 22:12 salicylates Allergy Intermediate caused Verified 04/27/22 22:12 bleeding, can take EC aspirin Corticosteroids AdvReac Intermediate swelling Verified 04/27/22 22:12 (Glucocorticoids) Consultations 04/27/22 23:39 ED Decision to Admit Stat 04/28/22 02:30 Consult Neurology Routine Ordered Studies 04/27/22 21:48 CT angio head w con Urgent CT angio neck with con Urgent CT head/brain wo con Urgent IMPRESSION: 1. There is no hemorrhage, mass effect, or evidence of acute territorial ischemia by CT criteria. 2. Unremarkable CT angiogram of the brain. 3. Unremarkable CT angiogram of the neck. 4. Advanced emphysema. 04/28/22 00:00 MR brain wo con Stat IMPRESSION: No acute intracranial abnormality noting a motion compromised examination. Hospital Course (1) Acute CVA (cerebrovascular accident): Possible Healthcare associated pneumonia Possible aspiration --CXR:Cardiomegaly and emphysema. Airspace consolidation is seen at the right lung base. Correlate clinically for evidence of pneumonia/aspiration pneumonitis. Chronic dysphagia Procalcitonin negative Started on Zosyn, doxycycline Blood cultures not obtained at the time of admission Continue oxygen supplementation as needed cough symptoms improved IV Zosyn changed to PO Levaquin on 04/29 continued Doxycycline Speech Tx: easy to chew diet [facility] Diarrhea negative for C diff toxin PRN Imodium probiotics ordered Strokelike symptoms Presented with right facial droop Possible TIA --MRI Brain:No acute intracranial abnormality noting a motion compromised examination. --Head/Neck CTA:There is no hemorrhage, mass effect, or evidence of acute territorial ischemia by CT criteria. Unremarkable CT angiogram of the brain. Unremarkable CT angiogram of the neck. --ECHO LV is hyperdynamic. EF greater than 70%. Small, organized apical and right lateral pericardial effusion. There are no echo cardiographic indications of cardiac tamponade. Injection of contrast documented no interatrial shunt. Continue Plavix, statin Neurology consulted - no medication changes recommended PT OT, speech eval 04/29 R facial droop resolved speech back to baseline per patient, denies dysphagia Echo: EF > 70% small organized apical and right lateral pericardial effusion no tamponade no interatrial shunt continue Pantoprazole, patient reports GI upset with ASA in the past Chronic respiratory failure secondary to COPD Chronic oxygen dependency On supplemental O2 Tobacco use Continue home inhalers, nebs CAD/PVD Continue Plavix, statin as above Hypertension on Cardizem Monitor Anemia of chronic disease Hemoglobin at baseline Monitor Disposition anticipate return to SNF Total Time Total Time Spent Total Time Spent (In Minutes): 40 Discharge Plan Discharge Items Patient Disposition: Transfer Long-Term Fac Reason For Visit: CVA Discharge Diagnosis: Strokelike symptoms, pneumonia Condition on Discharge: Good Activity: Per Instructions section Non-emergency contact: Primary Care Provider Call non-emergency contact if: you have any medication questions and your symptoms worsen Follow-up/Referrals: [facility] [Primary Care Provider] - Diet: Heart Healthy Diet Texture: Easy to Chew Diet Comment: Patient to be seen by speech therapist at [facility] Addtl Attending Provider Instructions: Follow-up with primary care physician within 1 week. Finish antibiotic treatment as prescribed. Recommend also using flutter valve, and taking guaifenesin. Continue taking probiotics while you are on antibiotics to prevent any stomach upset or diarrhea. Pending Studies at Discharge: No Stand-Alone Forms: My [facility] Skilled Items Patient informed of condition?: Yes DNR: No Discharge Level of Care: Skilled Communicable Disease: No Discharge Prognosis: Stable Lines: None Urinary Catheter: No Medications and DC Order Prescriptions: New Advanced Probiotic 625 mg (10 billion cell) Capsule 2 cap PO BID Qty: 10 RF: 0 guaifenesin 600 mg tablet extended release 12hr 600 mg PO BID Qty: 10 RF: 0 moxifloxacin 400 mg tablet 400 mg PO DAILY 5 Days Qty: 5 RF: 0 Continued albuterol sulfate [Ventolin HFA] 90 mcg/actuation Hfa Aerosol Inhaler 2 puff INHALATION BID PRN (Reason: Wheezing) RF: 0 gabapentin [Neurontin] 600 mg Tablet 600 mg PO TID RF: 0 clopidogrel [Plavix] 75 mg Tablet 75 mg PO QAM RF: 0 tramadol [Ultram] 50 mg Tablet 50 mg PO Q6H PRN (Reason: Pain) RF: 0 ferrous sulfate 325 mg (65 mg iron) Tablet 325 mg PO BID RF: 0 fluticasone propionate [Flonase Allergy Relief] 50 mcg/actuation [place],Suspension 2 spray INTRANASAL DAILY PRN (Reason: Congestion) RF: 0 escitalopram oxalate [Lexapro] 5 mg Tablet 5 mg PO QAM RF: 0 Lactinex 1 million cell Tablet,Chewable 1 tab PO BID RF: 0 cyanocobalamin (vitamin B-12) 500 mcg Tablet, Sublingual 500 mcg SUBLINGUAL QAM RF: 0 famotidine [Pepcid] 20 mg tablet 20 mg PO BID RF: 0 sucralfate [Carafate] 1 gram tablet 1 g PO BID RF: 0 mometasone [Nasonex] 50 mcg/actuation [place],Non-Aerosol 2 spray INTRANASAL DAILY RF: 0 Atrovent HFA 17 mcg/actuation HFA aerosol inhaler 2 puff INHALATION Q4H PRN (Reason: Shortness Of Breath Or Wheezing) RF: 0 arformoterol [Brovana] 15 mcg/2 mL Solution For Nebulization 15 mcg inhalation BID RF: 0 pantoprazole [Protonix] 40 mg tablet,delayed release (DR/EC) 40 mg PO QAM RF: 0 clonazepam 0.5 mg tablet 0.5 mg PO TID RF: 0 diltiazem HCl 60 mg Capsule,Extended Release 12 Hr 60 mg PO QAM RF: 0 ondansetron HCl 8 mg Tablet 8 mg PO Q8H PRN (Reason: Nausea) RF: 0 acetaminophen [Tylenol] 325 mg Tablet 650 mg PO Q6H PRN (Reason: PAIN/FEVER) RF: 0 nicotine 14 mg/24 hr Patch 24 Hour 1 patch TRANSDERMAL DAILY RF: 0 ipratropium-albuterol 0.5 mg-3 mg(2.5 mg base)/3 mL Solution For Nebulization 3 ml INHALATION .Q2-4H PRN (Reason: Shortness Of Breath Or Wheezing) RF: 0 ipratropium-albuterol 0.5 mg-3 mg(2.5 mg base)/3 mL Solution For Nebulization 3 ml INHALATION QID RF: 0 guaifenesin 100 mg/5 mL Liquid See Rx Instructions .ROUTE .COMPLEX RF: 0 rosuvastatin 10 mg Tablet 20 mg PO HS RF: 0 protein supplement Liquid 1 ea PO QPM RF: 0 Discharge Orders: Discharge Order (Routine); Ordered 04/30/22 Ordered By: Sushant Baltazar Admission Data Admit Date/Time: 04/27/22 23:55 Attending Provider: Sushant Baltazar Admit Provider: Daryl Anaya Primary Care Provider: [facility] Other Providers: Daryl Anaya ; Radha Xiong ; Brian Medrano ; Radha Bustamante ; Rigoberto Arredondo ; Megha Oshea ; Evens Charlton ; Shashank Vogel
== END 2022-04-30 16:19 | DRG 178 ==
LOC: ED 21:28 → SUATTDRO 23:55 → 2N 23:55

== ENCOUNTER 2022-10-22 22:17 | Inpatient (IN) ==
[2022-10-22] MEDS ORDERED: ALBUT/IPRATROP 3MG/0.5MG NEB 3 ML VIAL NEB ONE (22:28)
[2022-10-22] MEDS ORDERED: guaiFENesin 600 MG TABCR PO STA (22:29)
[2022-10-22] MEDS ORDERED: methylPREDNISolone 125 MG/2 ML VIAL IV STA (22:29)
[2022-10-22] MEDS ORDERED: SODIUM CHLORIDE 0.9% 500 ML IV ONE (22:31)
[2022-10-22 22:43] LABS: Basophils # (auto) 0.09 K/uL (0-0.2); Basophils % (auto) 0.8 %; Eosinophils # (auto) 0.45 K/uL (0-0.50); Hematocrit (blood only) 31.7 % (34.1-44.9); Immature Granulocytes # (auto) 0.05 K/uL (0.00-0.02); Immature Granulocytes % (auto) 0.4 %; Lymphocytes # (auto) 1.99 K/uL (1.2-3.4); Lymphocytes % (auto) 17.9 %; Mean Corpuscular Hemoglobin 29.1 pg (25.0-34.0); Mean Corpuscular Hgb Conc 31.5 g/dL (32.0-36.0); Mean Corpuscular Volume 92.2 fL (80.0-100.0); Mean Platelet Volume 9.2 fL (9.4-12.3); Monocytes # (auto) 1.42 K/uL (0.24-0.82); Monocytes % (auto) 12.8 %; Neutrophils # (auto) 7.12 K/uL (1.4-6.5); Neutrophils % (auto) 64.1 %; Platelet Count 321 K/uL (130-400); RDW Coefficient of Variation 13.3 % (11.5-14.5); RDW Standard Deviation 44.7 fL (36.4-46.3); Red Blood Count 3.44 M/uL (3.93-5.22); White Blood Count 11.12 K/ul (4.8-10.8)
[2022-10-22 22:58] LABS: Base Excess VBG 6.2 mEq/L; HCO3 VBG 34 mmol/L; Oxygen Saturation VBG 89.4 %; PCO2 VBG 65 mmHg (38-50); PO2 VBG 52 mmHg; pH VBG 7.33 (7.36-7.41)
[2022-10-22 23:10] LABS: Albumin Globulin Ratio 1.5 (0.9-2); Albumin Level 3.8 gm/dl (3.4-5.0); BUN Creatinine Ratio 13.5 (10-20); Bilirubin,Total 0.4 mg/dl (0.2-1.0); Calcium 8.9 mg/dl (8.5-10.1); Est GFR (African American) 106.1 ml/min; Est GFR (Non-African American) 91.5 ml/min; Globulin 2.6 gm/dl (2.5-4.0); Magnesium 1.9 mg/dl (1.7-2.4); Phosphorus 2.3 mg/dl (2.5-4.9); Potassium 3.7 mmol/L (3.5-5.1); Total Protein 6.4 gm/dl (6.0-8.3)
[2022-10-22] MEDS ORDERED: DOXYCYCLINE HYCLATE 100 MG in DEXTROSE 5% 100 ML IV STA (23:51)
[2022-10-23] MEDS ORDERED: LIDOCAINE 5% 1 PATCH TD STA
[2022-10-23] MEDS ORDERED: ACETAMINOPHEN 1,000 MG/100 ML VIAL IV STA
[2022-10-23 00:07] LABS: Influenza A virus by PCR Negative (Neg); Influenza B virus by PCR Negative (Neg); RSV by PCR Negative (Neg); SARS CoV2 RNA(COVID-19) Ceph NEGATIVE (Negative)
--- NOTE | 2022-10-23 00:41 | Emergency Department Note ---
Impression & Plan Acute on chronic respiratory failure with hypoxia and hypercapnia, COPD exacerbation, Metabolic encephalopathy ED Provider Note NAME: MARLENA PHILLIPS AGE: 77 SEX: F ARRIVES VIA: Ambulance INFORMANT: Patient ED PROVIDER(S): Jean Weems MD CHIEF COMPLAINT: SOB, referred. PLAN: Disposition: Admit MEDICAL DECISION MAKING: The patient is a pleasant 77-year-old woman with a past medical history of COPD, HTN, HLD who presents to the emergency department from her SNF at [facility] for evaluation of acute onset shortness of breath tonight where she is noted to have poor air movement. She did receive DuoNeb by EMS and did have some improvement but on arrival still with increased work of breathing. On arrival the patient is uncomfortable moderately dyspneic in moderate distress with respiratory rate in the 30s with O2 saturation 91% on 6L oxy-mask. Vital signs otherwise stable. She has poor air movement bilaterally with underlying wheeze. EKG without overt acute ischemia. Chest x-ray with question of increased right midlung interstitial thickening per my review. WBC 11K nonspecific. H/H similar to prior values. Platelets within normal limits. VBG 7.3, similar to prior with PCO2 of 65 similar to prior and chemistry with bicarb of 33 insistent with chronic hypercapnia. Electrolytes and LFTs unremarkable. High-sensitivity troponin 8, within normal limits. Lipase is not elevated. Covid-19 PCR negative. Influenza and RSV PCR negative. Upon reevaluation the patient was feel improved after IV fluid hydration, Solu- Medrol, hour-long DuoNeb and BiPAP. She did have some mild confusion after awaking from sleeping and was attempting get out of bed due to cramping in her right leg. However she was able to be redirected. She does agree with plan for admission. Doxycycline ordered for possible right middle lobe pneumonia in the setting of COPD flare Case was discussed with Dr. Huang, [facility] hospitalist, who will evaluate the patient for admission. Triage Nursing notes reviewed and agree them. Prior medical records reviewed Vital Signs: reviewed Differential diagnosis: Reactive airway disease, pneumonia, pneumothorax, COPD, CHF, infections, cardiac ischemia, pulmonary embolism, musculoskeletal, gastrointestinal, as well as other pathologies. ER treatment provided: See below. Diagnostics interpreted by me: ECG: Normal sinus rhythm, 90 bpm, no ectopy, no overt ST elevation or depression, QTC 469, QRS 74. Cardiac Monitoring: An order for continuous cardiac monitoring was placed and demonstrated Normal sinus rhythm, 90 bpm, no ectopy. Laboratory studies: See below Imaging studies: See below Consultation(s): Case was discussed with Dr. Huang, [facility] hospitalist, who will evaluate the patient for admission. HPI: The patient is a pleasant 77-year-old woman with a past medical history of COPD, HTN, HLD who presents to the emergency department from her SNF at [facility] for evaluation of acute onset shortness of breath tonight where she is noted to have poor air movement. She did receive DuoNeb by EMS and did have so me improvement but on arrival still with increased work of breathing. ROS: See above HPI for pertinent positives & negatives. A total of 10 systems reviewed and were otherwise negative. VITALS:See Below PHYSICAL EXAMINATION: GENERAL: Awake, alert, uncomfortable-appearing, moderate respiratory distress HENT: Normocephalic, atraumatic. Oropharynx with dry mucous membranes and otherwise unremarkable. EYES: Normal conjunctiva. Sclera non-icteric. NECK: Supple. No nuchal rigidity. FROM. No JVD. RESPIRATORY: Diminished breath sounds of bilateral lung saucedo with underlying wheeze with prolonged expiratory phase. Increased work of breathing. CARDIAC: Regular rate, normal rhythm. Extremities warm and well perfused. Pulses equal. ABDOMEN: Soft, non-distended. No tenderness to palpation. No rebound or guarding. No masses. RECTAL: Deferred. MUSCULOSKELETAL: Chest examination reveals no tenderness. The back is symmetr ical on inspection without obvious abnormality. There is no CVA tenderness to palpation. No joint edema. LOWER EXTREMITIES: Calves are equal size bilaterally and non-tender. No edema. No discoloration. NEURO: Mild confusion to situation. No focal sensory or motor deficits noted. SKIN: No rash or jaundice noted. ED COURSE: Critical Care: I have personally spent greater than 45 minutes of critical care time in the direct management of this patient. This includes bedside care, interpretation of diagnostic studies, and testing, discussion with consultants, patient, and family members, and other required patient management activities. This 45 minutes is in excess of all separately billable procedures. Jean Weems MD Past Med/Surg History Medical History Anxiety Arthritis Asymptomatic bilateral carotid artery stenosis "s/p bilateral carotid endarterectomy" CAD (coronary artery disease) F/U DR Angélica LEONARDO Chronic obstructive pulmonary disease OXYGEN 3-4 L/MIN CONTINUOUSLY Diarrhea Difficulty swallowing GERD (gastroesophageal reflux disease) History of anemia History of esophageal dilatation History of esophageal stricture History of GI bleed Hyperlipidemia Hypertension jail resident resident of [facility] Osteoporosis PVD (peripheral vascular disease) SOB (shortness of breath) on exertion TIA (transient ischemic attack) Surgical History H/O carotid endarterectomy R/L H/O hemorrhoidectomy H/O knee surgery H/O vascular surgery RIGHT ILIAC ARTERY STENT PLACEMENT History of appendectomy History of cardiac cath NO STENTS History of cataract surgery R/L History of colonoscopy History of esophagogastroduodenoscopy (EGD) Family History Other No family history of adverse response to anesthesia Social History Smoking Status: Former smoker Cigarettes Per Day: 5-10 CIG a day ADVISED; Hx Alcohol Use: Yes Alcohol type: beer Hx Substance Use: No Preferred Language: Danish Communication Ability: Effective Jailer Required: No Beliefs That Will Affect Care: None marital status: / Current Living Situation: Snf Current Living Situation Comment: [facility] How many Children do You have: 1 Feels Safe at Home: Yes Assistive Devices: Denture - Upper, Denture - Lower, Oxygen - Continuous, Walker and Wheelchair Allergies Allergies Allergy/AdvReac Type Severity Reaction Status Date / Time metoclopramide Allergy Severe "lungs Verified 10/23/22 00:06 collapsed" cortisone Allergy Intermediate swelling Verified 10/23/22 00:06 salicylates Allergy Intermediate caused Verified 10/23/22 00:06 bleeding, can take EC aspirin Corticosteroids AdvReac Intermediate swelling Verified 10/23/22 00:06 (Glucocorticoids) Home Meds Home Medications Medication Instructions Recorded Confirmed clopidogrel 75 mg tablet (Plavix) 75 mg PO QAM 08/15/19 10/22/22 cyanocobalamin (vitamin B-12) 500 500 mcg sublingual QAM 08/15/19 10/22/22 mcg sublingual tablet escitalopram oxalate 5 mg tablet 5 mg PO QAM 08/15/19 10/22/22 (Lexapro) ferrous sulfate 325 mg (65 mg 325 mg PO DAILY 08/15/19 10/22/22 iron) tablet arformoterol 15 mcg/2 mL solution 15 mcg inhalation BID 12/02/19 10/22/22 for nebulization (Brovana) famotidine 20 mg tablet (Pepcid) 20 mg PO BID 12/02/19 10/22/22 ipratropium bromide 17 2 puff inhalation Q4H PRN asthma 12/02/19 10/22/22 mcg/actuation HFA aerosol inhaler (Atrovent HFA) sucralfate 1 gram tablet (Carafate) 1 g PO BID 12/02/19 10/22/22 pantoprazole 40 mg tablet,delayed 40 mg PO QPM 12/04/19 10/22/22 release (Protonix) diltiazem HCl 60 mg 60 mg PO QAM 02/17/22 10/22/22 capsule,extended release 12 hr clonazepam 0.5 mg tablet 0.5 mg PO TID 03/25/22 10/22/22 ipratropium 0.5 mg-albuterol 3 mg 3 ml inhalation QID 04/27/22 10/22/22 (2.5 mg base)/3 mL nebulization soln protein supplement 1 ea PO QPM 04/27/22 10/22/22 rosuvastatin 10 mg tablet 20 mg PO HS 04/27/22 10/22/22 bisacodyl 10 mg rectal suppository 10 mg MT DAILY PRN Constipation 06/19/22 10/22/22 (Dulcolax (bisacodyl)) colestipol 1 gram tablet 1 g PO TID 06/19/22 10/22/22 magnesium hydroxide 400 mg/5 mL 30 ml PO HS PRN Constipation 06/19/22 10/23/22 oral suspension (Milk of Magnesia) Lactobacillus acidophilus 1 tab PO BID 10/22/22 10/22/22 Saccharomyces boulardii 250 mg 500 mg PO BID 10/22/22 10/22/22 capsule acetaminophen 325 mg tablet 650 mg PO Q6 PRN Fever 10/22/22 10/22/22 (Tylenol) acetaminophen 325 mg tablet 650 mg PO Q6 PRN pain 1-4 10/22/22 10/22/22 (Tylenol) albuterol sulfate 90 mcg/actuation 2 puff inhalation Q12 PRN Wheezing 10/22/22 10/22/22 aerosol inhaler gabapentin 600 mg tablet 600 mg PO TID 10/22/22 10/22/22 guaifenesin 600 mg tablet, 600 mg PO Q12 10/22/22 10/22/22 extended release 12 hr mometasone 50 mcg/actuation nasal 2 spray intranasal DAILY 10/22/22 10/22/22 spray tramadol 50 mg tablet 75 mg PO Q6 PRN 10/22/22 10/22/22 pain,moderate-severe lidocaine 4 % topical patch 1 patch topical DAILY 10/23/22 10/23/22 loperamide 2 mg tablet 2 mg PO Q6H PRN Diarrhea 10/23/22 10/23/22 Results & Data (ED) Vital Signs Vital Signs - 24 hr 10/22/22 22:30 10/22/22 22:30 10/22/22 22:59 Temperature 36.9 C Temperature Source Oral Pulse Rate 91 H Pulse Rate [Finger] Respiratory Rate 21 Respiratory Effort / Characteristics Respiratory Pattern Blood Pressure 147/66 H Blood Pressure Mean 93 Pulse Oximetry 87 L 91 92 Oxygen Delivery Method Room Air Room Air Oxymask BiPAP Oxygen Flow Rate 6 Fraction of Inspired Oxygen Sepsis Recent Fever Within 48 Hours No Sepsis New/Unexplained Change in Mental Status N/A Sepsis Action Taken by Nursing No Action Required 10/22/22 23:21 10/22/22 23:23 Temperature Temperature Source Pulse Rate 86 Pulse Rate [Finger] 93 H Respiratory Rate 34 H 30 H Respiratory Effort / Characteristics Spontaneous Spontaneous Labored Respiratory Pattern Tachypnea Blood Pressure Blood Pressure Mean Pulse Oximetry 96 96 Oxygen Delivery Method BiPAP Oxygen Flow Rate Fraction of Inspired Oxygen 45 45 Sepsis Recent Fever Within 48 Hours Sepsis New/Unexplained Change in Mental Status Sepsis Action Taken by Nursing Laboratory Data Attestation: I reviewed the patient's lab results. Result diagrams: 10/22/22 22:20 10/22/22 22:20 Lab Results 10/22/22 10/22/22 10/22/22 Range/Units 22:20 22:20 22:49 WBC 11.12 H (4.8-10.8) K/ul RBC 3.44 L (3.93-5.22) M/uL Hgb 10.0 L (12.0-16.0) g/dl Hct 31.7 L (34.1-44.9) % MCV 92.2 (80.0-100.0) fL MCH 29.1 (25.0-34.0) pg MCHC 31.5 L (32.0-36.0) g/dL RDW Std Deviation 44.7 (36.4-46.3) fL RDW Coeff of Renetta 13.3 (11.5-14.5) % Plt Count 321 (130-400) K/uL MPV 9.2 L (9.4-12.3) fL Immature Gran % (Auto) 0.4 % Neut % (Auto) 64.1 % Lymph % (Auto) 17.9 % Steele % (Auto) 12.8 % Eos % (Auto) 4.0 % Baso % (Auto) 0.8 % Neut # (Auto) 7.12 H (1.4-6.5) K/uL Lymph # (Auto) 1.99 (1.2-3.4) K/uL Steele # (Auto) 1.42 H (0.24-0.82) K/uL Eos # (Auto) 0.45 (0-0.50) K/uL Baso # (Auto) 0.09 (0-0.2) K/uL Immature Gran # (Auto) 0.05 H (0.00-0.02) K/uL VBG pH 7.33 L (7.36-7.41) VBG pCO2 65 H (38-50) mmHg VBG pO2 52 mmHg VBG HCO3 34 mmol/L VBG O2 Saturation 89.4 % VBG Base Excess 6.2 mEq/L Sodium 136 (136-145) mmol/L Potassium 3.7 (3.5-5.1) mmol/L Chloride 98 (98-107) mmol/L Carbon Dioxide 33 H (21-32) mmol/L Anion Gap 5 (3-11) BUN 7 (6-23) mg/dl Creatinine 0.52 L (0.6-1.2) mg/dl Est Cr Clr Drug Dosing 64.0 ml/min Est GFR ( Amer) 106.1 ml/min Est GFR (Non-Af Amer) 91.5 ml/min BUN/Creatinine Ratio 13.5 (10-20) Glucose 110 H (70-99(Fasting)) mg/dl Calcium 8.9 (8.5-10.1) mg/dl Phosphorus 2.3 L (2.5-4.9) mg/dl Magnesium 1.9 (1.7-2.4) mg/dl Total Bilirubin 0.4 (0.2-1.0) mg/dl AST 18 (13-39) U/L ALT 14 (7-52) U/L Alkaline Phosphatase 50 (34-104) U/L Troponin I High Sens 8.0 (0-14) pg/ml Total Protein 6.4 (6.0-8.3) gm/dl Albumin 3.8 (3.4-5.0) gm/dl Globulin 2.6 (2.5-4.0) gm/dl Albumin/Globulin Ratio 1.5 (0.9-2) Lipase 9 L (11-82) U/L SARS-CoV-2 (PCR) (Negative) Influenza Type A (PCR) (Neg) Influenza Type B (PCR) (Neg) RSV (RT-PCR) (Neg) 10/22/22 Range/Units 23:15 WBC (4.8-10.8) K/ul RBC (3.93-5.22) M/uL Hgb (12.0-16.0) g/dl Hct (34.1-44.9) % MCV (80.0-100.0) fL MCH (25.0-34.0) pg MCHC (32.0-36.0) g/dL RDW Std Deviation (36.4-46.3) fL RDW Coeff of Renetta (11.5-14.5) % Plt Count (130-400) K/uL MPV (9.4-12.3) fL Immature Gran % (Auto) % Neut % (Auto) % Lymph % (Auto) % Steele % (Auto) % Eos % (Auto) % Baso % (Auto) % Neut # (Auto) (1.4-6.5) K/uL Lymph # (Auto) (1.2-3.4) K/uL Steele # (Auto) (0.24-0.82) K/uL Eos # (Auto) (0-0.50) K/uL Baso # (Auto) (0-0.2) K/uL Immature Gran # (Auto) (0.00-0.02) K/uL VBG pH (7.36-7.41) VBG pCO2 (38-50) mmHg VBG pO2 mmHg VBG HCO3 mmol/L VBG O2 Saturation % VBG Base Excess mEq/L Sodium (136-145) mmol/L Potassium (3.5-5.1) mmol/L Chloride (98-107) mmol/L Carbon Dioxide (21-32) mmol/L Anion Gap (3-11) BUN (6-23) mg/dl Creatinine (0.6-1.2) mg/dl Est Cr Clr Drug Dosing ml/min Est GFR ( Amer) ml/min Est GFR (Non-Af Amer) ml/min BUN/Creatinine Ratio (10-20) Glucose (70-99(Fasting)) mg/dl Calcium (8.5-10.1) mg/dl Phosphorus (2.5-4.9) mg/dl Magnesium (1.7-2.4) mg/dl Total Bilirubin (0.2-1.0) mg/dl AST (13-39) U/L ALT (7-52) U/L Alkaline Phosphatase (34-104) U/L Troponin I High Sens (0-14) pg/ml Total Protein (6.0-8.3) gm/dl Albumin (3.4-5.0) gm/dl Globulin (2.5-4.0) gm/dl Albumin/Globulin Ratio (0.9-2) Lipase (11-82) U/L SARS-CoV-2 (PCR) NEGATIVE (Negative) Influenza Type A (PCR) Negative (Neg) Influenza Type B (PCR) Negative (Neg) RSV (RT-PCR) Negative (Neg) Administered Medications Albuterol (Albut/Ipratrop 3mg/0.5mg Neb 3 Ml Vial) 3 ml NEB Q4R SMITHA; Protocol Stop: 11/22/22 02:59 Last Admin: 10/23/22 03:24 Dose: 3 ml Documented By: EML Discontinued Medications Albuterol (Albut/Ipratrop 3mg/0.5mg Neb 3 Ml Vial) 12 ml NEB ONE ONE; Protocol Stop: 10/22/22 22:29 Last Admin: 10/22/22 23:20 Dose: 12 ml Documented By: CRISTAL Guaifenesin (Guaifenesin 600 Mg Tabcr) 600 mg PO NOW STA Stop: 10/22/22 22:30 Last Admin: 10/22/22 23:05 Dose: 600 mg Documented By: JJ Sodium Chloride (Nss) 500 mls @ 999 mls/hr IV .Q31M ONE Stop: 10/22/22 23:01 Last Infusion: 10/22/22 23:41 Dose: 0 mls/hr Documented By: Admin: 10/22/22 23:06 Dose: 999 mls/hr Documented By: JJ Doxycycline Hyclate 100 mg/ (Dextrose) 110 mls @ 50 mls/hr IV NOW STA Stop: 10/23/22 02:02 Last Infusion: 10/23/22 02:35 Dose: 0 mls/hr Documented By: Admin: 10/23/22 00:11 Dose: 50 mls/hr Documented By: JJ Acetaminophen (Ofirmev) 1,000 mg in 100 mls @ 400 mls/hr IV NOW STA Stop: 10/23/22 00:14 Last Infusion: 10/23/22 02:03 Dose: 0 mls/hr Documented By: Admin: 10/23/22 00:10 Dose: 400 mls/hr Documented By: JJ Lidocaine (Lidocaine 5% 1 Patch) 1 patch TD NOW STA Stop: 10/23/22 00:01 Last Admin: 10/23/22 00:10 Dose: 1 patch Documented By: JJ Methylprednisolone (Methylprednisolone 125 Mg/2 Ml Vial) 125 mg IV NOW STA Stop: 10/22/22 22:30 Last Admin: 10/22/22 23:06 Dose: 125 mg Documented By: JJ Imaging Data My Impression: Chest x-ray: Increased right midlung interstitial thickening per my review. Discharge Plan Visit Data Chief Complaint: Shortness of Breath/Dyspnea Stated Complaint: ALTERED MENTAL STATUS/RESPIRATORY DIFFICULTY ED Provider: Jean Weems Discharge Problem: Acute on chronic respiratory failure with hypoxia and hypercapnia, COPD exacerbation, Metabolic encephalopathy Patient Disposition: Admitted As Inpatient Discharge Instructions Interventions: ED Discharge Assessment Last Done: 10/23/22 02:56
[2022-10-23] MEDS ORDERED: ACETAMINOPHEN 325 MG TAB PO PRN (00:54)
[2022-10-23] MEDS ORDERED: POLYETHYLENE (MIRALAX) 17 GM PACK PO PRN (00:54)
[2022-10-23] MEDS ORDERED: MAGNESIUM HYDROXIDE SUSP 30 ML UDC PO PRN (00:54)
[2022-10-23] MEDS ORDERED: ONDANSETRON INJ 2 MG/ML 2 ML VIAL IV PRN (00:54)
--- NOTE | 2022-10-23 01:26 | History & Physical Report ---
Date of Service October 23, 2022 Assessment & Plan (1) Acute exacerbation of chronic obstructive pulmonary disease (COPD): Plan Acute exacerbation of COPD Likely metabolic encephalopathy Patient presents with confusion since the morning yesterday, patient is generally mentally sharp per her RN at [facility]. Patient uses 4 L oxygen all the time due to her chronic respiratory failure with hypoxia and hypercapnia. Patient has 64 pack years of smoking history. Admitting VBG with hypercapnia and chemistry with elevated bicarb indicating chronic compensation. Viral panel was negative at admission. Patient was wheezing on exam, CXR official read pending, increased interstitial markings more so on the right side than left lung. Patient received doxycycline and Solu-Medrol in the ED, will continue same. Continue with nebulization [id number]. Continue with BiPAP Right lower extremity pain: Patient has right lower extremity pain on and off chronically per patient's RN at [facility]. Patient does have a history of stent in her right lower extremity. Patient did fall a month ago from bed height at [facility] but was evaluated as not injured per patient's RN there. No recent trauma, no obvious deformity on bedside exam. Will benefit from getting duplex arterial to evaluate for peripheral vascular disease. Follow-up on imaging result, will likely need vascular eval inpatient or outpatient, continue with pain management and patient seem to have some relief with lidocaine patch - we will continue with same. Generally patient ambulates with walker per [facility]. Other chronic medical conditions: ASCVD, HLD, bilateral carotid artery occlusion, pulmonary granuloma --> continue home meds as able. DVT prophylaxis: Heparin subcu Full code History of Present Illness Chief Complaint: Altered mental status, acute worsening of chronic right lower extremity pain Primary Care Provider: [facility] 77-year-old lady with PMH of chronic respiratory failure with hypoxia and hypercapnia on 4 L oxygen at home, COPD group D by Gold classification, centrilobular emphysema, pulmonary granuloma, ASCVD, PVD status post right common iliac artery stent and right external iliac artery angioplasty on , sinus tachycardia, HLD, HTN, bilateral carotid artery occlusion, Schatzki's ring, esophageal reflux, anxiety was brought to our ED 10/23 from [facility] due to worsening confusion and acute worsening of her chronic right lower extremity pain. Patient was seen at bedside, patient confused but able to cooperate with physical examination, was oriented x1, not able to provide history, appeared to be in mild distress due to right anterior thigh pain which patient reports has improved somewhat from what she presented with. Towards the end of my examination, patient calmed down and appeared not to be in distress. Patient's daughter Katrina was given a phone call, who was already updated about patient's status by [facility], updated her and her daughter Janna reported that she has been complaining of this right leg pain since her fall from bed almost a month ago at [facility]. 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 Per her, patient has right lower extremity pain on and off for a long time but this time she had acute worsening of the same pain. She confirmed that the patient fell from bed almost a month ago and was not injured at that time according to her. Also she stated that the patient did not find relief with increasing dose of her tramadol. Pt didn't have recent trauma or fall per her. ROS from the patient was not able due to confused status. Medications from outpatient chart reviewed. Patient is a former smoker, quit 04/24/2022. Had 64 pack years. Also used alcohol in the past. No recreational drug use per outpatient chart review. Allergies Allergy/AdvReac Type Severity Reaction Status Date / Time metoclopramide Allergy Severe "lungs Verified 10/23/22 00:06 collapsed" cortisone Allergy Intermediate swelling Verified 10/23/22 00:06 salicylates Allergy Intermediate caused Verified 10/23/22 00:06 bleeding, can take EC aspirin Corticosteroids AdvReac Intermediate swelling Verified 10/23/22 00:06 (Glucocorticoids) Home Medications Medication Instructions Recorded Confirmed Type clopidogrel 75 mg tablet (Plavix) 75 mg PO QAM 08/15/19 10/22/22 History cyanocobalamin (vitamin B-12) 500 500 mcg sublingual QAM 08/15/19 10/22/22 History mcg sublingual tablet escitalopram oxalate 5 mg tablet 5 mg PO QAM 08/15/19 10/22/22 History (Lexapro) ferrous sulfate 325 mg (65 mg 325 mg PO DAILY 08/15/19 10/22/22 History iron) tablet arformoterol 15 mcg/2 mL solution 15 mcg inhalation BID 12/02/19 10/22/22 History for nebulization (Brovana) famotidine 20 mg tablet (Pepcid) 20 mg PO BID 12/02/19 10/22/22 History ipratropium bromide 17 2 puff inhalation Q4H PRN asthma 12/02/19 10/22/22 History mcg/actuation HFA aerosol inhaler (Atrovent HFA) sucralfate 1 gram tablet (Carafate) 1 g PO BID 12/02/19 10/22/22 History pantoprazole 40 mg tablet,delayed 40 mg PO QPM 12/04/19 10/22/22 History release (Protonix) diltiazem HCl 60 mg 60 mg PO QAM 02/17/22 10/22/22 History capsule,extended release 12 hr clonazepam 0.5 mg tablet 0.5 mg PO TID 03/25/22 10/22/22 History ipratropium 0.5 mg-albuterol 3 mg 3 ml inhalation QID 04/27/22 10/22/22 History (2.5 mg base)/3 mL nebulization soln protein supplement 1 ea PO QPM 04/27/22 10/22/22 History rosuvastatin 10 mg tablet 20 mg PO HS 04/27/22 10/22/22 History bisacodyl 10 mg rectal suppository 10 mg LA DAILY PRN Constipation 06/19/22 10/22/22 History (Dulcolax (bisacodyl)) colestipol 1 gram tablet 1 g PO TID 06/19/22 10/22/22 History magnesium hydroxide 400 mg/5 mL 30 ml PO HS PRN Constipation 06/19/22 10/23/22 History oral suspension (Milk of Magnesia) Lactobacillus acidophilus 1 tab PO BID 10/22/22 10/22/22 History Saccharomyces boulardii 250 mg 500 mg PO BID 10/22/22 10/22/22 History capsule acetaminophen 325 mg tablet 650 mg PO Q6 PRN Fever 10/22/22 10/22/22 History (Tylenol) acetaminophen 325 mg tablet 650 mg PO Q6 PRN pain 1-4 10/22/22 10/22/22 History (Tylenol) albuterol sulfate 90 mcg/actuation 2 puff inhalation Q12 PRN Wheezing 10/22/22 10/22/22 History aerosol inhaler gabapentin 600 mg tablet 600 mg PO TID 10/22/22 10/22/22 History guaifenesin 600 mg tablet, 600 mg PO Q12 10/22/22 10/22/22 History extended release 12 hr mometasone 50 mcg/actuation nasal 2 spray intranasal DAILY 10/22/22 10/22/22 History spray tramadol 50 mg tablet 75 mg PO Q6 PRN 10/22/22 10/22/22 History pain,moderate-severe lidocaine 4 % topical patch 1 patch topical DAILY 10/23/22 10/23/22 History loperamide 2 mg tablet 2 mg PO Q6H PRN Diarrhea 10/23/22 10/23/22 History Past Med/Surg History Medical History Anxiety Arthritis Asymptomatic bilateral carotid artery stenosis "s/p bilateral carotid endarterectomy" CAD (coronary artery disease) F/U DR Angélica LEONARDO Chronic obstructive pulmonary disease OXYGEN 3-4 L/MIN CONTINUOUSLY Diarrhea Difficulty swallowing GERD (gastroesophageal reflux disease) History of anemia History of esophageal dilatation History of esophageal stricture History of GI bleed Hyperlipidemia Hypertension long term resident resident of [facility] Osteoporosis PVD (peripheral vascular disease) SOB (shortness of breath) on exertion TIA (transient ischemic attack) Surgical History H/O carotid endarterectomy R/L H/O hemorrhoidectomy H/O knee surgery H/O vascular surgery RIGHT ILIAC ARTERY STENT PLACEMENT History of appendectomy History of cardiac cath NO STENTS History of cataract surgery R/L History of colonoscopy History of esophagogastroduodenoscopy (EGD) Family History Other No family history of adverse response to anesthesia Social History Smoking Status: Former smoker Cigarettes Per Day: 5-10 CIG a day ADVISED; Hx Alcohol Use: Yes Alcohol type: beer Hx Substance Use: No Preferred Language: Kinyarwanda Communication Ability: Effective Top Coater Required: No Beliefs That Will Affect Care: None marital status: / Current Living Situation: Skilled Nursing Current Living Situation Comment: [facility] How many Children do You have: 1 Feels Safe at Home: Yes Assistive Devices: Denture - Upper, Denture - Lower, Oxygen - Continuous, Walker and Wheelchair Review of Systems Review of Systems: Not able due to cognition status of the patient. Physical Exam Physical Exam: GENERAL: Ox1. mild distress, on BPAP HEENT: No pallor, no icterus. Pupils equal, round and reactive to light. Oral mucosa moist. NECK: No JVD, no neck masses. HEART: S1 and S2 heard. tachycardia. No murmur, no gallop. RESPIRATORY SYSTEM: Normal AP diameter. No accessory muscle use. decreased breath sounds, bibasal wheezing noted. ABDOMEN: Soft, bowel sounds present, nontender, no distention. CENTRAL NERVOUS SYSTEM: No facial droop. Speech is clear. Obeys simple commands. Moves extremities. EXTREMITIES: No edema, no erythema seen. RLE with no trauma or obvious deformity. Results & Data Results & Data ([facility]) Vital Signs (Past 12 Hours) Vital Signs Temp Pulse Pulse Resp BP Pulse Ox O2 Del Method 10/22/22 23:23 86 30 H 96 10/22/22 23:21 93 H 34 H 96 BiPAP 10/22/22 22:59 92 BiPAP 10/22/22 22:30 91 Room Air, Oxymask 10/22/22 22:30 36.9 C 91 H 21 147/66 H 87 L Room Air O2 Flow Rate FiO2 10/22/22 23:23 45 10/22/22 23:21 45 10/22/22 22:59 10/22/22 22:30 6 10/22/22 22:30
[2022-10-23] MEDS ORDERED: ALBUTEROL HFA 8 GM INHALER INH PRN (02:39)
[2022-10-23] MEDS ORDERED: traMADol HCL 50 MG TABLET PO PRN (02:39)
[2022-10-23] MEDS ORDERED: bisacodyL 10 MG SUPP PR PRN (02:39)
[2022-10-23] MEDS: ALBUT/IPRATROP 3MG/0.5MG NEB 3 ML VIAL NEB SCH ×6 (03:24→22:59)
[2022-10-23] MEDS ORDERED: INFLUENZA VACCINE HIGH DOSE PF 65+ 0.7 ML SYR IM ONE (04:12)
[2022-10-23] MEDS ORDERED: OLANZapine 10 MG/2.1 ML SDV IM STA ×3 (05:03→16:09)
[2022-10-23] MEDS ORDERED: OLANZapine 10 MG/2.1 ML SDV IM ONE (05:06)
--- NOTE | 2022-10-23 06:57 | XRay Report ---
SINGLE VIEW CHEST CLINICAL HISTORY: Atypical chest pain. FINDINGS: An AP, portable, upright chest radiograph is compared to study dated 04/27/2022. Correlation is made with chest CT dated 11/30/2009. The examination is degraded by portable technique and apical lo rdotic positioning. The heart is mildly enlarged noting atherosclerotic calcification of the thoracic aorta. The pulmonary vasculature is noncongested. Emphysema and chronic residual thickening is simil ar previous. Foci of parenchymal scarring are seen throughout both lungs. There are scattered calcifi ed granulomas. No airspace consolidation or large pleural effusion is identified. No pneumothorax is seen. The skeletal structures are osteopenic. Arthritic change is noted in the shoulders. There are h ealed right-sided rib fractures. IMPRESSION: Cardiomegaly and emphysema with no acute cardiopulmonary abnormality identified. ACT 112: Negative or not required by law. Electronically signed by: Anibal Elder M.D. 10/23/2022 6:56 AM
[2022-10-23] MEDS ORDERED: ARFORMOTEROL TART 15MCG/2ML VIAL INH SCH (07:00)
[2022-10-23] MEDS: FORMOTEROL 20 MCG/2 ML VIAL INH SCH ×2 (07:08→19:43)
[2022-10-23 07:42] LABS: BUN Creatinine Ratio 18.5 (10-20); Calcium 8.4 mg/dl (8.5-10.1); Creatinine Clr Calc Pharmacy 61.7 ml/min; Est GFR (African American) 104.8 ml/min; Est GFR (Non-African American) 90.4 ml/min; Potassium 4.1 mmol/L (3.5-5.1)
[2022-10-23] MEDS: SUCRALFATE 1 GM TAB PO SCH ×2 (08:30→22:02)
[2022-10-23] MEDS ORDERED: clonazePAM 0.5 MG TAB PO SCH (09:00)
[2022-10-23] MEDS ORDERED: GABAPENTIN 600 MG TAB PO SCH (09:00)
[2022-10-23] MEDS ORDERED: methylPREDNISolone 40 MG in SYRINGE 0 ML IV SCH (09:00)
[2022-10-23 09:49] LABS: HCO3 VBG 33 mmol/L; Oxygen Saturation VBG 79.4 %; PCO2 VBG 59 mmHg (38-50); PO2 VBG 47 mmHg; pH VBG 7.36 (7.36-7.41)
[2022-10-23] MEDS: POT PHOSPHATE MONOBASIC W/ SOD TAB PO SCH ×4 (10:24→22:02)
[2022-10-23] MEDS: HEPARIN SOD 5,000 UNIT/0.5 ML VIAL SQ SCH ×2 (10:25→22:01)
[2022-10-23] MEDS: CLOPIDOGREL BISULFATE 75 MG TAB PO SCH (10:26)
[2022-10-23] MEDS: COLESTIPOL HCL 1 GM TAB PO SCH ×3 (10:26→22:03)
[2022-10-23] MEDS: guaiFENesin 600 MG TABCR PO SCH ×2 (10:26→22:00)
[2022-10-23] MEDS: FERROUS SULFATE 325 MG TAB PO SCH (10:26)
[2022-10-23] MEDS: ESCITALOPRAM OXALATE 10 MG TAB PO SCH (10:27)
[2022-10-23] MEDS: ADVANCED PROBIOTIC 1250 MG CAPSULE PO SCH (10:27)
[2022-10-23] MEDS: FAMOTIDINE 20 MG TAB PO SCH ×2 (10:27→21:58)
[2022-10-23] MEDS: CYANOCOBALAMIN (B-12) 500 MCG TABLET PO SCH (10:28)
[2022-10-23] MEDS: FLUTICASONE PROPIONATE NA SPR 16 GM BTL SCH (10:28)
[2022-10-23] MEDS ORDERED: Nursing to Pharmacy Communication SCH (11:15)
[2022-10-23 12:00] LABS: Appearance Urine Clear (Clear); Bilirubin Urine Negative (Negative); Blood Urine Negative (Negative); Color Urine Yellow; Glucose Urine UA Negative (Negative); Ketones Urine Trace (Negative); Leukocyte Esterase Urine Negative (Negative); Nitrite Urine Negative (Negative); Protein Urine Negative (Negative); Specific Gravity Urine 1.009 (1.000-1.030); Urobilinogen Urine Negative (Negative); pH Urine 6.5 (4.5-7.5)
--- NOTE | 2022-10-23 12:20 | CT Scan Report ---
CT SCAN OF THE BRAIN WITHOUT IV CONTRAST CLINICAL HISTORY: Change in mental status. COMPARISON STUDY: CT of the brain dated 04/27/2022. TECHNIQUE: Unenhanced axial CT scan of the brain is performed from the vertex to the skull base. A do se lowering technique was utilized adhering to the principles of ALARA. The patient was scanned twice due to motion artifact. The examination is motion compromised. CT DOSE: 2763.53 mGy.cm FINDINGS: Brain parenchyma: There is age-related involutional change noting moderate to advanced subcortical an d periventricular microangiopathic disease. There is no hemorrhage, mass effect, or evidence of acute territorial ischemia by CT criteria. Rojas-white matter differentiation is preserved. No extra-axial fluid collection is seen. Ventricles, sulci, cisterns: Prominent secondary to involutional change. Intracranial vasculature: There is atherosclerotic calcification of the cavernous carotid and vertebr al arteries. Calvarium: Unremarkable. Sinuses and mastoids: The paranasal sinuses are clear. There are small mastoid effusions. Orbits: The bony orbits are grossly intact. There are bilateral ocular lens implants. IMPRESSION: There is no hemorrhage, mass effect, or evidence of acute territorial ischemia by CT crit brandy noting a motion compromised examination. ACT 112: Negative or not required by law. Electronically signed by: Anibal Elder M.D. 10/23/2022 12:19 PM
--- NOTE | 2022-10-23 12:57 | Electrocardiogram Report ---
Test Reason : Blood Pressure : / mmHG Vent. Rate : 090 BPM Atrial Rate : 090 BPM P-R Int : 154 ms QRS Dur : 074 ms QT Int : 384 ms P-R-T Axes : 073 028 062 degrees QTc Int : 469 ms Poor data quality, interpretation may be adversely affected Normal sinus rhythm Poor R wave progression, consider anterior AK vs. lead placement vs. LVH Abnormal ECG When compared with ECG of 27-APR-2022 21:38, No significant change was found Confirmed by Jadon Lebron ([id number]) on 10/23/2022 12:57:08 PM Referred By: [facility] Confirmed By:Porter Lebron
--- NOTE | 2022-10-23 13:10 | XRay Report ---
XR femur LT 2V routine, XR tibia fibula RT 2V CLINICAL HISTORY: Leg Pain, H/O Fall COMPARISON STUDY: None. FINDINGS: Left femur: No fracture or dislocation within the left femur. No significant left knee effusion. Soft tissues are unremarkable. Visualized pelvic bones are intact. Chondrocalcinosis within the left knee . Right tibia/fibula: No fracture or dislocation within the right tibia or fibula. Chondrocalcinosis no niles within the right knee. No significant soft tissue swelling. IMPRESSION: 1. No fracture or dislocation within the left femur. 2. No fracture or dislocation within the right lower leg. ACT 112: Negative or not required by law. Electronically signed by: Jamie Maravilla M.D. 10/23/2022 1:08 PM
[2022-10-23] MEDS: DOXYCYCLINE HYCLATE 100 MG in DEXTROSE 5% 100 ML IV SCH (13:54)
--- NOTE | 2022-10-23 13:58 | Hospitalist Progress Note ---
Date of Service October 23, 2022 Assessment & Plan (1) Acute exacerbation of chronic obstructive pulmonary disease (COPD): Plan Acute exacerbation of COPD Acute metabolic encephalopathy Acute on chronic respiratory failure with hypoxia and hypercarbia Chronic oxygen dependency--on 4 L at baseline Prior smoking history --CT head:There is no hemorrhage, mass effect, or evidence of acute territorial ischemia by CT criteria noting a motion compromised examination. --CXR:Cardiomegaly and emphysema with no acute cardiopulmonary abnormality identified. -- Urinalysis showed no signs of UTI --Urine tox screen pending --Normal Ammonia level Continue nebs, doxycycline, steroids Titrate oxygen to keep saturations 88 to 92% Hold sedating medications Consider MRI brain if needed BiPAP while sleeping/at bedtime as needed H/O Fall Ambulatory dysfunction Reported fall 1 month Ago per family Uses walker at baseline Imaging studies negative for any fractures Fall precautions PT/OT as able Right lower extremity pain H/O PVD Arterial Doppler pending Continue Plavix, statin Hyperlipidemia On statin GERD Continue home medications Depression On Lexapro Hypertension On diltiazem IV labetalol as needed DVT Px: Heparin SQ Code Status Full code Disposition PT OT prior to discharge Admission and Anticipated Discharge Date Admission Date: October 23, 2022 Subjective Patient is seen and examined at bedside Unable to provide history as currently disoriented No significant distress on exam during my encounter Saturating well on 4 L supplemental oxygen Sitter at bedside CT head showed no acute process Discussed with patient's daughter over the phone Review of Systems Review of Systems: All systems reviewed & are unremarkable except as noted in Subjective Physical Exam Physical Exam: Physical Exam: Vitals signs as noted above General Appearance: Thin, frail, chronically appearing, no apparent distress Head: normocephalic, Atraumatic Eyes: normal inspection, EOMI Neck: supple, Trachea midline Respiratory/Chest: Decreased breath sounds, basal wheezing, No accessory muscle use Cardiovascular: S1, S2, No murmur Abdomen/GI:Soft, Non tender, Bowel sounds present Extremities/Musculoskeletal:normal inspection, no edema Neurologic/Psych:Alert Awake, confused, grossly moves all extremities Skin: normal color, warm Results & Data Results & Data ([facility]) Vital Signs (Past 12 Hours) Vital Signs Temp Pulse Pulse Resp BP Pulse Ox O2 Del Method 10/23/22 11:38 112 H 20 99 Oxymask 10/23/22 10:59 36.8 C 110 H 33 H 189/83 H 100 Oxymask 10/23/22 08:00 91 H 10/23/22 08:00 Oxymask 10/23/22 08:18 36.9 C 107 H 20 170/66 H 95 Oxymask 10/23/22 07:08 102 H 24 80 L Room Air 10/23/22 06:49 97 H 10/23/22 03:26 90 18 96 Oxymask 10/23/22 02:28 103 H 32 H 98 O2 Flow Rate FiO2 10/23/22 11:38 4 10/23/22 10:59 10/23/22 08:00 10/23/22 08:00 5 10/23/22 08:18 5.0 10/23/22 07:08 10/23/22 06:49 10/23/22 03:26 6 10/23/22 02:28 35 Laboratory Results Short CBC 10/22/22 Range/Units 22:20 WBC 11.12 H (4.8-10.8) K/ul Hgb 10.0 L (12.0-16.0) g/dl Hct 31.7 L (34.1-44.9) % Plt Count 321 (130-400) K/uL BMP 10/22/22 10/23/22 22:20 06:51 Sodium 136 136 Potassium 3.7 4.1 Chloride 98 99 Carbon Dioxide 33 H 29 BUN 7 10 Creatinine 0.52 L 0.54 L Glucose 110 H 175 H Calcium 8.9 8.4 L Liver Function 10/22/22 Range/Units 22:20 Total Bilirubin 0.4 (0.2-1.0) mg/dl AST 18 (13-39) U/L ALT 14 (7-52) U/L Alkaline Phosphatase 50 (34-104) U/L Albumin 3.8 (3.4-5.0) gm/dl Urine 10/23/22 Range/Units 11:30 Urine Color Yellow Urine Appearance Clear (Clear) Urine pH 6.5 (4.5-7.5) Ur Specific [place] 1.009 (1.000-1.030) Urine Protein Negative (Negative) Urine Glucose (UA) Negative (Negative)
[2022-10-23] MEDS ORDERED: OLANZapine 10 MG/2.1 ML SDV IM PRN (16:00)
[2022-10-23 20:41] LABS: Amphetamines+Metham, Urine Neg (Neg); Barbiturates, Urine Neg (Neg); Benzodiazepine, Urine Neg (Neg); Cocaine, Urine Neg (Neg); MDMA (Ecstacy), Urine Neg (Neg); Methadone, Urine Neg (Neg); Opiate, Urine Neg (Neg); Phencyclidine, Urine Neg (Neg)
[2022-10-23] MEDS: PANTOprazole 40 MG TAB PO SCH (21:58)
[2022-10-23] MEDS: methylPREDNISolone 40 MG in SYRINGE 0 ML IV SCH (21:58)
[2022-10-23] MEDS: ROSUVASTATIN CALCIUM 20 MG TAB PO SCH (22:02)
[2022-10-23] MEDS: PROSOURCE NO CARB 30 ML/PKT PO SCH (22:04)
[2022-10-24] MEDS: DOXYCYCLINE HYCLATE 100 MG in DEXTROSE 5% 100 ML IV SCH ×2 (00:30→12:44)
[2022-10-24] MEDS: ALBUT/IPRATROP 3MG/0.5MG NEB 3 ML VIAL NEB SCH ×6 (02:20→22:07)
[2022-10-24] MEDS: FORMOTEROL 20 MCG/2 ML VIAL INH SCH ×2 (07:02→17:33)
[2022-10-24] MEDS: FAMOTIDINE 20 MG TAB PO SCH ×2 (08:15→19:49)
[2022-10-24] MEDS: CYANOCOBALAMIN (B-12) 500 MCG TABLET PO SCH (08:15)
[2022-10-24] MEDS: ESCITALOPRAM OXALATE 10 MG TAB PO SCH (08:15)
[2022-10-24] MEDS: ADVANCED PROBIOTIC 1250 MG CAPSULE PO SCH (08:16)
[2022-10-24] MEDS: CLOPIDOGREL BISULFATE 75 MG TAB PO SCH (08:16)
[2022-10-24] MEDS: SUCRALFATE 1 GM TAB PO SCH ×2 (08:16→19:50)
[2022-10-24] MEDS: FLUTICASONE PROPIONATE NA SPR 16 GM BTL SCH (08:17)
[2022-10-24] MEDS: FERROUS SULFATE 325 MG TAB PO SCH (08:17)
[2022-10-24] MEDS: guaiFENesin 600 MG TABCR PO SCH ×3 (08:18→19:50)
[2022-10-24] MEDS: LIDOCAINE 5% 1 PATCH TD SCH (08:19)
[2022-10-24] MEDS: methylPREDNISolone 40 MG in SYRINGE 0 ML IV SCH (08:19)
[2022-10-24] MEDS: HEPARIN SOD 5,000 UNIT/0.5 ML VIAL SQ SCH ×2 (08:20→19:49)
[2022-10-24 08:42] LABS: Hematocrit (blood only) 31.5 % (34.1-44.9); Hemoglobin 10.4 g/dl (12.0-16.0); Mean Corpuscular Hemoglobin 30.1 pg (25.0-34.0); Mean Platelet Volume 9.5 fL (9.4-12.3); Platelet Count 369 K/uL (130-400); RDW Coefficient of Variation 13.6 % (11.5-14.5); RDW Standard Deviation 45.1 fL (36.4-46.3); Red Blood Count 3.46 M/uL (3.93-5.22); White Blood Count 10.29 K/ul (4.8-10.8)
[2022-10-24] MEDS: POT PHOSPHATE MONOBASIC W/ SOD TAB PO SCH ×4 (08:43→19:50)
[2022-10-24 09:09] LABS: Base Excess VBG 9.8 mEq/L; HCO3 VBG 33 mmol/L; Oxygen Saturation VBG 88.1 %; PCO2 VBG 40 mmHg (38-50); PO2 VBG 51 mmHg; pH VBG 7.53 (7.36-7.41)
--- NOTE | 2022-10-24 09:29 | XRay Report ---
XR chest 1V portable HISTORY: Aspiration COMPARISON: Chest 10/22/2022. FINDINGS: No pneumothorax. No pleural effusions. Emphysema again noted. The heart is normal in size. Calcified granuloma no new focal lung consolidations to suggest a pneumonia. No evidence for pulmonar y edema. Interstitial prominence of the lung bases likely due to vascular crowding from the emphysema . This remains unchanged. Old, healed left-sided rib fractures. IMPRESSION: Emphysema again noted. No new focal lung consolidations to suggest a pneumonia. ACT 112: Negative or not required by law. Electronically signed by: Jamie Maravilla M.D. 10/24/2022 9:28 AM
[2022-10-24 09:36] LABS: BUN Creatinine Ratio 32.1 (10-20); Calcium 8.3 mg/dl (8.5-10.1); Creatinine Clr Calc Pharmacy 59.5 ml/min; Est GFR (African American) 103.5 ml/min; Est GFR (Non-African American) 89.3 ml/min; Magnesium 2.2 mg/dl (1.7-2.4); Phosphorus 1.5 mg/dl (2.5-4.9); Potassium 3.1 mmol/L (3.5-5.1)
[2022-10-24] MEDS: LABETALOL HCL IV 5 MG/ML 20ML IV PRN ×2 (09:46→15:53)
[2022-10-24] MEDS ORDERED: POTASSIUM PHOS 3 MMOL/1 ML INFUSION IV ONE (10:00)
--- NOTE | 2022-10-24 10:26 | Neurology Consultation ---
Date of Consultation October 24, 2022 Assessment & Plan (1) Acute encephalopathy: (2) Hypophosphatemia: (3) Abnormal involuntary movements: Plan this patient has an acute encephalopathy, likely multifactorial. Certainly, she was extremely hypoxic despite even oxygen with CO2 retention. Although these parameters have improved within the last 24 hours, it may take 1 or 2 more days for the CHILD THERAPIST to "clear" after these parameters have been improved. The patient has no focal neurologic findings or meningeal signs. I do not suspect a stroke. Interestingly, on exam she has tongue protrusion and lip-smacking very reminiscent of a tardive dyskinesia. I have no history of previous neuroleptic use in the past and [facility] nursing reports that they believe she smacks her lips and sticks out her tongue a lot because she has no teeth. I do not have any additional history to support this diagnosis however. Also, the patient has marked hypophosphatemia, which can lead to confusion, delirium, speech problems, impaired motor skills, somnolence, abnormal involuntary movements, or seizures. Additionally, stopping gabapentin abruptly could lead to confusion, tremor and anxiety with other withdrawal type symptoms. After discussion with nursing staff at her [place] [facility], patient was given tramadol several days prior to admission, for a couple of doses, but she was not on very much of this. No other medication was changed and the only other addition was a 4% lidocaine patch. I am not certain if these medication changes have anything to do with her current altered mental status. She will likely improve her mental status further, over the next day or so, particularly after the hypophosphatemia is improved. Recommendations: 1. check TSH and B12. 2. Correct hypophosphatemia. 3. Hold all tramadol for now. 4. if gabapentin was held, reintroduce this at a lower dose ( 3 mg 3 times a day). If the gabapentin has been given along, then just keep the usual dose. 5. I see no need for additional neurologic imaging studies, EEG, or LP at this time. 6. I could follow up as an outpatient, if desired. overall, I spent a total of 60 minutes with this case including review of records, review of MRI films, direct evaluation the patient at bedside, and di scussing the case with the patient and RN at bedside, and Dr. Hassan, including differential diagnosis and treatment options. History of Present Illness Reason for Consultation: patient is a 77-year-old, who I was asked to see at the request of Dr. Charlton, for neurologic consultation regarding acute encephalopathy. Requesting Physician: Dr. Charlton Attending Physician: Evens Charlton MD History of Present Illness The patient has had a history of COPD, hypertension, gastroesophageal reflux disease and ASCVD for many years. She also has a history of chronic tobacco use and was a heavy alcohol user in the past. She is post bilateral carotid endarterectomy over 10 years. This patient is a resident in the [place] [facility] facility [facility] Since March [id number]. She was having respiratory issues including exacerbations of COPD. In April of 2022 the patient had acute onset dysarthria and left facial droop. Imaging including CT and MRI of the brain showed no acute stroke but it was felt she had an ischemic event. She has been on Plavix since. CT angiography showed no specific vessel anomalies or stenoses. I talked to nursing staff at [facility] and the patient is typically oriented fully. She does not have a teeth and lip smacking and protruding her tongue. Throughout October 22 the patient was getting increasingly short of breath. She was transferred to the emergency room later that day. She was given DuoNeb by the EMS with some help. She arrived at [facility] at 10:30 p.m. with a temperature of 36.7, pulse 91 and regular, blood pressure 147/66, and O2 saturation 87%. She was described as mildly confused and very dysmetric with a respiratory rate in the 30s. On 6 L her oxygen came up to 91%. She had elevated pCO2 decreased pH on arterial blood gas. CBC showed mild anemia and mildly elevated white count with a normal Chem profile urinalysis. CT scan of the head showed no acute changes although was motion degraded. Ammonia level was 39, potassium was low at 3.1 but calcium was only mildly low at 8.3. Magnesium is normal at 2.2 and phosphorus was markedly low at 1.5. This morning the patient is awake and alert and is pleasant and cooperative. She knows her name and her age. She did not know the name of where she is, the day, the date, the month, the year. She has some nonspecific abdominal pain and a mild bifrontal headache. Allergies Allergy/AdvReac Type Severity Reaction Status Date / Time metoclopramide Allergy Severe "lungs Verified 10/23/22 00:06 collapsed" cortisone Allergy Intermediate swelling Verified 10/23/22 00:06 salicylates Allergy Intermediate caused Verified 10/23/22 00:06 bleeding, can take EC aspirin Corticosteroids AdvReac Intermediate swelling Verified 10/23/22 00:06 (Glucocorticoids) Home Medications Medication Instructions Recorded Confirmed Type clopidogrel 75 mg tablet (Plavix) 75 mg PO QAM 08/15/19 10/22/22 History cyanocobalamin (vitamin B-12) 500 500 mcg sublingual QAM 08/15/19 10/22/22 History mcg sublingual tablet escitalopram oxalate 5 mg tablet 5 mg PO QAM 08/15/19 10/22/22 History (Lexapro) ferrous sulfate 325 mg (65 mg 325 mg PO DAILY 08/15/19 10/22/22 History iron) tablet arformoterol 15 mcg/2 mL solution 15 mcg inhalation BID 12/02/19 10/22/22 History for nebulization (Brovana) famotidine 20 mg tablet (Pepcid) 20 mg PO BID 12/02/19 10/22/22 History ipratropium bromide 17 2 puff inhalation Q4H PRN asthma 12/02/19 10/22/22 History mcg/actuation HFA aerosol inhaler (Atrovent HFA) sucralfate 1 gram tablet (Carafate) 1 g PO BID 12/02/19 10/22/22 History pantoprazole 40 mg tablet,delayed 40 mg PO QPM 12/04/19 10/22/22 History release (Protonix) diltiazem HCl 60 mg 60 mg PO QAM 02/17/22 10/22/22 History capsule,extended release 12 hr clonazepam 0.5 mg tablet 0.5 mg PO TID 03/25/22 10/22/22 History ipratropium 0.5 mg-albuterol 3 mg 3 ml inhalation QID 04/27/22 10/22/22 History (2.5 mg base)/3 mL nebulization soln protein supplement 1 ea PO QPM 04/27/22 10/22/22 History rosuvastatin 10 mg tablet 20 mg PO HS 04/27/22 10/22/22 History bisacodyl 10 mg rectal suppository 10 mg CO DAILY PRN Constipation 06/19/22 10/22/22 History (Dulcolax (bisacodyl)) colestipol 1 gram tablet 1 g PO TID 06/19/22 10/22/22 History magnesium hydroxide 400 mg/5 mL 30 ml PO HS PRN Constipation 06/19/22 10/23/22 History oral suspension (Milk of Magnesia) Lactobacillus acidophilus 1 tab PO BID 10/22/22 10/22/22 History Saccharomyces boulardii 250 mg 500 mg PO BID 10/22/22 10/22/22 History capsule acetaminophen 325 mg tablet 650 mg PO Q6 PRN Fever 10/22/22 10/22/22 History (Tylenol) acetaminophen 325 mg tablet 650 mg PO Q6 PRN pain 1-4 10/22/22 10/22/22 History (Tylenol) albuterol sulfate 90 mcg/actuation 2 puff inhalation Q12 PRN Wheezing 10/22/22 10/22/22 History aerosol inhaler gabapentin 600 mg tablet 600 mg PO TID 10/22/22 10/22/22 History guaifenesin 600 mg tablet, 600 mg PO Q12 10/22/22 10/22/22 History extended release 12 hr mometasone 50 mcg/actuation nasal 2 spray intranasal DAILY 10/22/22 10/22/22 History spray tramadol 50 mg tablet 75 mg PO Q6 PRN 10/22/22 10/22/22 History pain,moderate-severe lidocaine 4 % topical patch 1 patch topical DAILY 10/23/22 10/23/22 History loperamide 2 mg tablet 2 mg PO Q6H PRN Diarrhea 10/23/22 10/23/22 History Patient History Medical History Anxiety Arthritis Asymptomatic bilateral carotid artery stenosis "s/p bilateral carotid endarterectomy" CAD (coronary artery disease) F/U DR Angélica LEONARDO Chronic obstructive pulmonary disease OXYGEN 3-4 L/MIN CONTINUOUSLY Diarrhea Difficulty swallowing GERD (gastroesophageal reflux disease) History of anemia History of esophageal dilatation History of esophageal stricture History of GI bleed Hyperlipidemia Hypertension [facility] resident resident of [facility] Osteoporosis PVD (peripheral vascular disease) SOB (shortness of breath) on exertion TIA (transient ischemic attack) Surgical History H/O carotid endarterectomy R/L H/O hemorrhoidectomy H/O knee surgery H/O vascular surgery RIGHT ILIAC ARTERY STENT PLACEMENT History of appendectomy History of cardiac cath NO STENTS History of cataract surgery R/L History of colonoscopy History of esophagogastroduodenoscopy (EGD) Family History Other No family history of adverse response to anesthesia Social History (Updated 10/24/22 @ 10:41 by Xavier Galicia MD) Smoking Status: Former smoker Age Started Using Tobacco: 19; packs per day: 2; Cigarettes Per Day: 5-10 CIG a day ADVISED; Smoking End Date: 04/2022; Hx Alcohol Use: Yes Alcohol type: beer Alcohol type Comment: In a 2009 note - she drank 12 shots of peppermint schnapps per day Hx Substance Use: No Preferred Language: Palauan Communication Ability: Effective Concrete Sculptor Required: No Beliefs That Will Affect Care: None marital status: / Current Living Situation: Snf Current Living Situation Comment: [facility] How many Children do You have: 1 Feels Safe at Home: Yes Assistive Devices: Oxygen - Continuous, Walker and Wheelchair Review of Systems Constitutional: + fatigue and + weakness; no fever Eyes: no diplopia, no eye pain and no worsening vision Ear, Nose, Mouth, Throat: no ear pain, no tinnitus, no hearing loss, no dizziness, no snoring, no hoarseness and no dysphagia Respiratory: + dyspnea; no cough Cardiovascular: no chest pain, no palpitations and no lightheadedness Gastrointestinal: + abdominal pain; no nausea and no vomiting Genitourinary: no dysuria, no urinary frequency and no urinary incontinence Musculoskeletal: no back pain, no neck pain, no radicular pain, no joint pain and no myalgia Integumentary: no rash and no lesions Neurologic: + headache(s); no gait abnormality, no localized weakness, no generalized weakness, no tingling, no numbness, no tremor(s), no abnormal movements, no abnormal speech, no confusion and no memory loss Psychiatric: no depression, no irritability, no anxiety, no difficulty concentrating, no confusion and no hallucinations Endocrine: no fatigue and no flushing Hematologic / Lymphatic: no easy bleeding and no easy bruising Allergy / Immunological: no urticaria and no problem reported Exam (Neuro) Physical Exam: The patient is right-handed. The patient is awake, alert, and attentive. Speech is somewhat dysarthric, but she has no teeth and and protrudes her tongue, lip smacking quite frequently. She follows one-step commands well. She may have some mild hearing loss bilaterally. She will have facial grimacing as well. She is pleasant and cooperative. Pupils are 4 mm bilaterally and reactive to light. Extraocular eye muscles are intactHorizontally, without nystagmus, but she does not cooperate for vertical gaze. Otherwise, visual acuity and visual saucedo seem normal grossly to confrontation. There are no deficits to sensation in the face in all 3 distributions of the fifth cranial nerve bilaterally. Corneal reflexes are positive bilaterally. Facial strength and symmetry was normal bilaterally. Hearing seems mildly decreased bilaterally. Palate moves well without asymmetry. There is normal sternocleidomastoid and trapezius (shoulder shrug) strength bilaterally. Tongue is midline with good strength bilaterally. Neck has a full range of motion without discomfort. There are no cervical bruits bilaterally. There are no cranial or ocular bruits. Heart is without murmur. There is a regular rhythm and rate. Cervical, thoracic, and lumbar spine are nontender to palpation. Gait is not tested and stance is reasonable sitting up. With outstretched arms there is no drift. There are no resting, postural, or action tremors. There is no ataxia with finger to nose testing. There is reasonable facility in the hands. No other abnormal involuntary movements are noted. Motor strength is 5/5 diffusely in the arms bilaterally including deltoids, biceps, triceps, brachioradialis, wrist flexors and extensors, nurse clinician, and intrinsic hand muscles. Motor strength is 5/5 diffusely in the legs bilaterally including hip flexors, quadriceps, hamstrings, gastrocnemius, tibialis anterior, tibialis posterior, and Peroneii muscles. Toe extensors are normal and there is good bulk in the extensor digitorum brevis muscles bilaterally. The limbs have good tone without rigidity or spasticity. There is no atrophy noted in the muscles. Muscle bulk is normal, there is no tenderness to palpation, no myotonia to percussion, and no fasciculations seen. Sensory examination is intact to touch and pin throughout all 4 limbs diffusely. Reflexes are 2/4 in the biceps, triceps, brachioradialis, quadriceps, and Achilles tendons bilaterally. There is no clonus bilaterally. Toes are downgoing with plantar stimulation bilaterally. Peripheral pulses are present and of normal quality distally in all 4 limbs. There is no peripheral edema noted in the limbs. Results & Data ([facility]) Vital Signs (Past 12 Hours) Vital Signs Temp Pulse Pulse Resp BP Pulse Ox Pulse Ox 10/24/22 08:00 121 H 10/24/22 08:00 10/24/22 08:00 96 10/24/22 07:15 36.7 C 114 H 20 171/77 H 96 10/24/22 07:04 115 H 20 89 L 10/24/22 00:55 10/24/22 02:22 76 18 99 10/23/22 23:01 93 H 18 99 10/23/22 22:41 36.6 C 102 H 29 H 142/63 H 100 O2 Del Method O2 Del Method O2 Flow Rate 10/24/22 08:00 10/24/22 08:00 Room Air 10/24/22 08:00 Room Air 10/24/22 07:15 Room Air 10/24/22 07:04 Room Air 10/24/22 00:55 Oxymask 10/24/22 02:22 Oxymask 4 10/23/22 23:01 Oxymask 5 10/23/22 22:41 Oxymask 4 PG Care Time/CCT Total # of Minutes Spent Total Time Spent with Patient: Total time spent is greater than 50% in coordination of care (as documented) at patient's floor/unit and/or counseling patient: Coding Level of Care Code 79261 Initial Inpt Care Lvl 3 Diagnoses Acute encephalopathy G93.40 Hypophosphatemia E83.39 Abnormal involuntary movements R25.9 Time Spent (min) 60
[2022-10-24] MEDS ORDERED: POTASSIUM PHOSPHATE 24 MMOL in SODIUM CHLORIDE 0.9% 500 ML IV ONE (10:30)
[2022-10-24] MEDS ORDERED: SODIUM CHLORIDE 0.9% 500 ML IV ONE (10:55)
[2022-10-24] MEDS: POTASSIUM CHLORIDE / WTR 10 MEQ/100 ML PLCT IV SCH ×4 (10:58→14:57)
[2022-10-24] MEDS: COLESTIPOL HCL 1 GM TAB PO SCH ×3 (11:15→19:50)
[2022-10-24] MEDS ORDERED: clonazePAM 0.5 MG TAB PO PRN ×2 (12:50→13:09)
[2022-10-24] MEDS ORDERED: GABAPENTIN 600 MG TAB PO SCH (14:00)
[2022-10-24] MEDS: GABAPENTIN 300 MG CAP PO SCH ×2 (14:13→19:49)
--- NOTE | 2022-10-24 15:00 | Hospitalist Progress Note ---
Date of Service October 24, 2022 Assessment & Plan (1) Acute exacerbation of chronic obstructive pulmonary disease (COPD): Plan Acute exacerbation of COPD Acute metabolic encephalopathy Acute on chronic respiratory failure with hypoxia and hypercarbia Chronic oxygen dependency--on 4 L at baseline Prior smoking history --CT head:There is no hemorrhage, mass effect, or evidence of acute territorial ischemia by CT criteria noting a motion compromised examination. --CXR:Cardiomegaly and emphysema with no acute cardiopulmonary abnormality identified. -- Urinalysis showed no signs of UTI --Urine tox screen pending --Normal Ammonia level Continue nebs, doxycycline, steroids Titrate oxygen to keep saturations 88 to 92% Hold sedating medications as able BiPAP while sleeping/at bedtime as needed Hypercarbia resolved Appreciate neurology input Check TSH, vitamin B12 Continue to hold tramadol Titrate down steroids as able H/O Fall Ambulatory dysfunction Reported fall 1 month Ago per family Uses walker at baseline Imaging studies negative for any fractures Fall precautions PT/OT as able Hypophosphatemia Hypokalemia Replete electrolytes as needed Monitor Right lower extremity pain H/O PVD Arterial Doppler as able Continue Plavix, statin Hyperlipidemia On statin GERD Continue home medications Depression On Lexapro Hypertension On diltiazem IV labetalol as needed DVT Px: Heparin SQ Code Status Full code Disposition PT OT prior to discharge Admission and Anticipated Discharge Date Admission Date: October 23, 2022 Subjective Patient is seen and examined at bedside Poor historian Oriented to person, place but mental status not back to baseline Discussed with nephrology today Failed speech therapy evaluation States having cough, right leg pain Review of Systems Review of Systems: All systems reviewed & are unremarkable except as noted in Subjective Physical Exam Physical Exam: Physical Exam: Vitals signs as noted above General Appearance: Thin, frail, chronically appearing, no apparent distress Head: normocephalic, Atraumatic Eyes: normal inspection, EOMI Neck: supple, Trachea midline Respiratory/Chest: Decreased breath sounds, basal wheezing, No accessory muscle use Cardiovascular: S1, S2, No murmur Abdomen/GI:Soft, Non tender, Bowel sounds present Extremities/Musculoskeletal:normal inspection, no edema Neurologic/Psych:Alert Awake, confused, grossly moves all extremities Skin: normal color, warm Results & Data Results & Data ([facility]) Vital Signs (Past 12 Hours) Vital Signs Temp Pulse Pulse Resp BP Pulse Ox Pulse Ox 10/24/22 11:04 98 H 20 97 10/24/22 10:40 37.0 C 106 H 20 170/75 H 94 10/24/22 08:00 121 H 10/24/22 08:00 10/24/22 08:00 96 10/24/22 07:15 36.7 C 114 H 20 171/77 H 96 10/24/22 07:04 115 H 20 89 L O2 Del Method O2 Del Method O2 Flow Rate 10/24/22 11:04 Oxymask 3 10/24/22 10:40 Nasal Cannula 2 10/24/22 08:00 10/24/22 08:00 Room Air 10/24/22 08:00 Room Air 10/24/22 07:15 Room Air 10/24/22 07:04 Room Air Laboratory Results Short CBC 10/24/22 Range/Units 08:31 WBC 10.29 (4.8-10.8) K/ul Hgb 10.4 L (12.0-16.0) g/dl Hct 31.5 L (34.1-44.9) % Plt Count 369 (130-400) K/uL BMP 10/24/22 08:31 Sodium 140 Potassium 3.1 L D Chloride 101 Carbon Dioxide 31 BUN 18 Creatinine 0.56 L Glucose 183 H Calcium 8.3 L
[2022-10-24] MEDS: PANTOprazole 40 MG TAB PO SCH (19:50)
[2022-10-24] MEDS: PROSOURCE NO CARB 30 ML/PKT PO SCH (19:50)
[2022-10-24] MEDS: ROSUVASTATIN CALCIUM 20 MG TAB PO SCH (19:50)
[2022-10-24] MEDS: ACETAMINOPHEN 1,000 MG/100 ML VIAL IV PRN (21:26)
[2022-10-24] MEDS: DICLOFENAC SOD 1% GEL 100 GM TUBE EXT SCH (23:30)
[2022-10-25] MEDS: DOXYCYCLINE HYCLATE 100 MG in DEXTROSE 5% 100 ML IV SCH ×3 (00:09→23:46)
[2022-10-25] MEDS: LABETALOL HCL IV 5 MG/ML 20ML IV PRN (00:10)
[2022-10-25] MEDS: ALBUT/IPRATROP 3MG/0.5MG NEB 3 ML VIAL NEB SCH ×4 (07:09→19:36)
[2022-10-25] MEDS: FORMOTEROL 20 MCG/2 ML VIAL INH SCH ×2 (07:09→19:36)
[2022-10-25] MEDS: ACETAMINOPHEN 1,000 MG/100 ML VIAL IV PRN ×2 (07:41→23:27)
[2022-10-25] MEDS: DICLOFENAC SOD 1% GEL 100 GM TUBE EXT SCH ×4 (07:45→19:44)
[2022-10-25] MEDS: SUCRALFATE 1 GM TAB PO SCH ×3 (07:45→19:48)
[2022-10-25] MEDS: FLUTICASONE PROPIONATE NA SPR 16 GM BTL SCH (07:46)
[2022-10-25] MEDS: HEPARIN SOD 5,000 UNIT/0.5 ML VIAL SQ SCH ×2 (07:46→19:48)
[2022-10-25] MEDS: guaiFENesin 600 MG TABCR PO SCH ×3 (07:47→19:46)
[2022-10-25] MEDS: CYANOCOBALAMIN (B-12) 500 MCG TABLET PO SCH ×2 (07:48→10:18)
[2022-10-25] MEDS: ADVANCED PROBIOTIC 1250 MG CAPSULE PO SCH ×2 (07:48→10:20)
[2022-10-25] MEDS: CLOPIDOGREL BISULFATE 75 MG TAB PO SCH ×2 (07:48→10:20)
[2022-10-25] MEDS: ESCITALOPRAM OXALATE 10 MG TAB PO SCH ×2 (07:48→10:18)
[2022-10-25] MEDS: COLESTIPOL HCL 1 GM TAB PO SCH ×3 (07:48→19:46)
[2022-10-25] MEDS: GABAPENTIN 300 MG CAP PO SCH ×4 (07:48→19:47)
[2022-10-25] MEDS: FAMOTIDINE 20 MG TAB PO SCH ×3 (07:48→19:47)
[2022-10-25] MEDS: FERROUS SULFATE 325 MG TAB PO SCH ×2 (07:48→10:20)
[2022-10-25] MEDS: LIDOCAINE 5% 1 PATCH TD SCH (08:14)
[2022-10-25 08:51] LABS: Hematocrit (blood only) 37.8 % (34.1-44.9); Hemoglobin 12.5 g/dl (12.0-16.0); Mean Corpuscular Hemoglobin 29.2 pg (25.0-34.0); Mean Corpuscular Hgb Conc 33.1 g/dL (32.0-36.0); Mean Corpuscular Volume 88.3 fL (80.0-100.0); Mean Platelet Volume 9.6 fL (9.4-12.3); Platelet Count 447 K/uL (130-400); RDW Coefficient of Variation 13.7 % (11.5-14.5); RDW Standard Deviation 44.1 fL (36.4-46.3); Red Blood Count 4.28 M/uL (3.93-5.22); White Blood Count 13.19 K/ul (4.8-10.8)
[2022-10-25] MEDS ORDERED: methylPREDNISolone 40 MG in SYRINGE 0 ML IV SCH (09:00)
[2022-10-25 09:04] LABS: Base Excess VBG 6.4 mEq/L; HCO3 VBG 31 mmol/L; Oxygen Saturation VBG 92.4 %; PCO2 VBG 41 mmHg (38-50); PO2 VBG 59 mmHg; pH VBG 7.48 (7.36-7.41)
[2022-10-25 09:31] LABS: BUN Creatinine Ratio 29.1 (10-20); Calcium 8.6 mg/dl (8.5-10.1); Est GFR (African American) 104.1 ml/min; Est GFR (Non-African American) 89.8 ml/min; Magnesium 2.3 mg/dl (1.7-2.4); Phosphorus 1.5 mg/dl (2.5-4.9); Potassium 3.8 mmol/L (3.5-5.1)
[2022-10-25] MEDS ORDERED: SODIUM PHOSPHATE 3 MMOL/1 ML INFUSION IV ONE (09:56)
[2022-10-25] MEDS ORDERED: SODIUM PHOSPHATE 30 MMOL in SODIUM CHLORIDE 0.9% 500 ML IV ONE (10:15)
--- NOTE | 2022-10-25 15:37 | Hospitalist Progress Note ---
Date of Service October 25, 2022 Assessment & Plan (1) Acute exacerbation of chronic obstructive pulmonary disease (COPD): Plan Acute exacerbation of COPD Acute metabolic encephalopathy Acute on chronic respiratory failure with hypoxia and hypercarbia Chronic oxygen dependency--on 4 L at baseline Prior smoking history --CT head:There is no hemorrhage, mass effect, or evidence of acute territorial ischemia by CT criteria noting a motion compromised examination. --CXR:Cardiomegaly and emphysema with no acute cardiopulmonary abnormality identified. -- Urinalysis showed no signs of UTI --Urine tox screen Negative --Normal Ammonia level --TSH normal --Mildly elevated vitamin B12 Continue nebs, doxycycline, steroids Titrate oxygen to keep saturations 88 to 92% BiPAP while sleeping/at bedtime as needed Hypercarbia resolved Appreciate neurology input Continue to hold tramadol Titrate down steroids as able Mental Status much improved H/O Fall Ambulatory dysfunction Reported fall 1 month Ago per family Uses walker at baseline Imaging studies negative for any fractures Fall precautions PT/OT as able Hypophosphatemia Hypokalemia Replete electrolytes as needed Monitor Right lower extremity pain H/O PVD Check Arterial Doppler-pending Continue Plavix, statin Hyperlipidemia On statin GERD Continue home medications Depression On Lexapro Hypertension On diltiazem IV labetalol as needed DVT Px: Heparin SQ Code Status Full code Disposition PT OT prior to discharge Admission and Anticipated Discharge Date Admission Date: October 23, 2022 Subjective Patient is seen and examined at bedside Mental status much improved Was unsure of events prior to admission Offers no new complaints today Sitter at bedside Reports chronic right leg pain Review of Systems Review of Systems: All systems reviewed & are unremarkable except as noted in Subjective Physical Exam Physical Exam: Physical Exam: Vitals signs as noted above General Appearance: Thin, frail, chronically appearing, no apparent distress Head: normocephalic, Atraumatic Eyes: normal inspection, EOMI Neck: supple, Trachea midline Respiratory/Chest: Decreased breath sounds, CTA, No accessory muscle use Cardiovascular: S1, S2, No murmur Abdomen/GI:Soft, Non tender, Bowel sounds present Extremities/Musculoskeletal:normal inspection, no edema Neurologic/Psych:Alert Awake, oriented, grossly moves all extremities Skin: normal color, warm Results & Data Results & Data ([facility]) Vital Signs (Past 12 Hours) Vital Signs Temp Pulse Resp BP Pulse Ox O2 Del Method O2 Flow Rate 10/25/22 14:13 71 20 97 Nasal Cannula 4 10/25/22 11:23 36.7 C 105 H 20 155/72 H 97 Nasal Cannula 4 10/25/22 11:09 66 20 98 Nasal Cannula 4 10/25/22 08:00 Nasal Cannula 4 10/25/22 07:09 58 L 20 99 Oxymask Laboratory Results Short CBC 10/25/22 Range/Units 08:38 WBC 13.19 H (4.8-10.8) K/ul Hgb 12.5 (12.0-16.0) g/dl Hct 37.8 (34.1-44.9) % Plt Count 447 H (130-400) K/uL BMP 10/25/22 08:38 Sodium 137 Potassium 3.8 D Chloride 100 Carbon Dioxide 27 BUN 16 Creatinine 0.55 L Glucose 122 H Calcium 8.6
[2022-10-25] MEDS: ROSUVASTATIN CALCIUM 20 MG TAB PO SCH (19:46)
[2022-10-25] MEDS: PANTOprazole 40 MG TAB PO SCH (19:46)
[2022-10-25] MEDS: PROSOURCE NO CARB 30 ML/PKT PO SCH (19:48)
[2022-10-26] MEDS ORDERED: traMADol HCL 50 MG TABLET PO STA (02:34)
[2022-10-26] MEDS: LABETALOL HCL IV 5 MG/ML 20ML IV PRN (03:19)
[2022-10-26] MEDS: FORMOTEROL 20 MCG/2 ML VIAL INH SCH ×2 (06:59→19:46)
[2022-10-26] MEDS: ALBUT/IPRATROP 3MG/0.5MG NEB 3 ML VIAL NEB SCH ×4 (07:00→19:47)
[2022-10-26 07:12] LABS: Hemoglobin 12.5 g/dl (12.0-16.0); Mean Corpuscular Hemoglobin 29.8 pg (25.0-34.0); Mean Corpuscular Hgb Conc 33.8 g/dL (32.0-36.0); Mean Corpuscular Volume 88.1 fL (80.0-100.0); Mean Platelet Volume 9.5 fL (9.4-12.3); Platelet Count 407 K/uL (130-400); RDW Coefficient of Variation 13.4 % (11.5-14.5); RDW Standard Deviation 43.5 fL (36.4-46.3); White Blood Count 10.46 K/ul (4.8-10.8)
[2022-10-26] MEDS: DICLOFENAC SOD 1% GEL 100 GM TUBE EXT SCH ×4 (07:32→19:40)
[2022-10-26] MEDS: ESCITALOPRAM OXALATE 10 MG TAB PO SCH (07:33)
[2022-10-26] MEDS: CYANOCOBALAMIN (B-12) 500 MCG TABLET PO SCH (07:33)
[2022-10-26] MEDS: ADVANCED PROBIOTIC 1250 MG CAPSULE PO SCH (07:34)
[2022-10-26] MEDS: SUCRALFATE 1 GM TAB PO SCH ×3 (07:34→21:16)
[2022-10-26] MEDS: FAMOTIDINE 20 MG TAB PO SCH ×2 (07:34→20:24)
[2022-10-26] MEDS: FLUTICASONE PROPIONATE NA SPR 16 GM BTL SCH (07:35)
[2022-10-26] MEDS: GABAPENTIN 300 MG CAP PO SCH ×3 (07:35→20:23)
[2022-10-26] MEDS: HEPARIN SOD 5,000 UNIT/0.5 ML VIAL SQ SCH ×2 (07:36→20:24)
[2022-10-26] MEDS: LIDOCAINE 5% 1 PATCH TD SCH (07:36)
[2022-10-26] MEDS: guaiFENesin 600 MG TABCR PO SCH ×3 (07:37→21:16)
[2022-10-26] MEDS: CLOPIDOGREL BISULFATE 75 MG TAB PO SCH (07:38)
[2022-10-26] MEDS: FERROUS SULFATE 325 MG TAB PO SCH (07:39)
[2022-10-26 07:59] LABS: BUN Creatinine Ratio 34.7 (10-20); Creatinine Clr Calc Pharmacy 76.2 ml/min; Est GFR (African American) 108.2 ml/min; Est GFR (Non-African American) 93.3 ml/min; Phosphorus 1.8 mg/dl (2.5-4.9); Potassium 3.3 mmol/L (3.5-5.1)
[2022-10-26] MEDS ORDERED: SODIUM PHOSPHATE 3 MMOL/1 ML INFUSION IV ONE (08:18)
[2022-10-26] MEDS ORDERED: POTASSIUM CHLORIDE 20 MEQ/15 ML UDC PO ONE (08:30)
[2022-10-26] MEDS ORDERED: SODIUM PHOSPHATE 30 MMOL in SODIUM CHLORIDE 0.9% 500 ML IV ONE (09:00)
[2022-10-26] MEDS ORDERED: predniSONE 20 MG TAB PO SCH (09:00)
[2022-10-26] MEDS: COLESTIPOL HCL 1 GM TAB PO SCH ×2 (10:16→16:42)
--- NOTE | 2022-10-26 11:16 | Ultrasound Report ---
US arterial duplex LE RT HISTORY: 77 years-old Female PVD COMPARISON: 06/05/2009 TECHNIQUE: Multiple real-time sonographic images of the] lower extremity arterial structures were obt ained assessing grayscale appearance, color and spectral flow FINDINGS: Moderate atherosclerotic plaque. Triphasic waveforms noted about the level the knee. No arterial occl usion or elevated peak systolic velocities identified to suggest high-grade stenosis. Monophasic wave forms noted within the distal posterior tibial and peroneal arteries. Biphasic waveforms within the d orsalis pedis artery. Peak systolic velocities of 27 cm/s within the distal peroneal artery. IMPRESSION: 1. Peripheral arterial disease without arterial occlusion or elevated peak systolic velocities. 2. Monophasic waveforms within the posterior tibial and peroneal arteries. ACT 112: Negative or not required by law. The above report was generated using voice recognition software. It may contain grammatical, syntax o r spelling errors. Electronically signed by: Lonnie Oshea M.D. 10/26/2022 11:14 AM
[2022-10-26] MEDS: DOXYCYCLINE HYCLATE 100 MG in DEXTROSE 5% 100 ML IV SCH (12:44)
--- NOTE | 2022-10-26 15:31 | Hospitalist Progress Note ---
Date of Service October 26, 2022 Assessment & Plan (1) Acute exacerbation of chronic obstructive pulmonary disease (COPD): Plan Acute exacerbation of COPD Acute metabolic encephalopathy Acute on chronic respiratory failure with hypoxia and hypercarbia Chronic oxygen dependency--on 4 L at baseline Prior smoking history --CT head:There is no hemorrhage, mass effect, or evidence of acute territorial ischemia by CT criteria noting a motion compromised examination. --CXR:Cardiomegaly and emphysema with no acute cardiopulmonary abnormality identified. -- Urinalysis showed no signs of UTI --Urine tox screen Negative --Normal Ammonia level --TSH normal --Mildly elevated vitamin B12 Continue nebs, doxycycline, steroids Titrate oxygen to keep saturations 88 to 92% BiPAP while sleeping/at bedtime as needed Hypercarbia resolved Appreciate neurology input Tramadol discontinued--consider to discontinue upon discharge as well Mental Status continues to improve Will decrease prednisone to 30 mg daily starting tomorrow H/O Fall Ambulatory dysfunction Reported fall 1 month Ago per family Uses walker at baseline Imaging studies negative for any fractures Fall precautions PT/OT as able Hypophosphatemia Hypokalemia Replete electrolytes as needed Monitor Right lower extremity pain H/O PVD Arterial Doppler:Peripheral arterial disease without arterial occlusion or elevated peak systolic velocities. Monophasic waveforms within the posterior tibial and peroneal arteries. Continue Plavix, statin Hyperlipidemia On statin GERD Continue home medications Depression On Lexapro Hypertension On diltiazem IV labetalol as needed BP slightly elevated likely due to steroids DVT Px: Heparin SQ Code Status Full code Disposition PT OT prior to discharge Admission and Anticipated Discharge Date Admission Date: October 23, 2022 Subjective Patient is seen and examined at bedside Continues to improve clinically Reports chronic bilateral leg pain Denies any chest pain, shortness of breath, dizziness, nausea, abdominal pain No other complaints Tolerating diet Review of Systems Review of Systems: All systems reviewed & are unremarkable except as noted in Subjective Physical Exam Physical Exam: Physical Exam: Vitals signs as noted above General Appearance: Thin, frail, chronically appearing, no apparent distress Head: normocephalic, Atraumatic Eyes: normal inspection, EOMI Neck: supple, Trachea midline Respiratory/Chest: Decreased breath sounds, CTA, No accessory muscle use Cardiovascular: S1, S2, No murmur Abdomen/GI:Soft, Non tender, Bowel sounds present Extremities/Musculoskeletal:normal inspection, no edema Neurologic/Psych:Alert Awake, oriented, grossly moves all extremities Skin: normal color, warm Results & Data Results & Data ([facility]) Vital Signs (Past 12 Hours) Vital Signs Temp Pulse Pulse Resp BP BP Pulse Ox 10/26/22 11:30 36.5 C 83 17 168/94 H 97 10/26/22 10:33 82 18 98 10/26/22 08:00 94 H 10/26/22 09:36 10/26/22 07:31 75 18 152/95 H 98 10/26/22 07:01 91 H 18 97 O2 Del Method O2 Flow Rate 10/26/22 11:30 Nasal Cannula 4 10/26/22 10:33 Nasal Cannula 4 10/26/22 08:00 10/26/22 09:36 Nasal Cannula 4 10/26/22 07:31 Nasal Cannula 4 10/26/22 07:01 Nasal Cannula 4 Laboratory Results Short CBC 10/26/22 Range/Units 06:24 WBC 10.46 (4.8-10.8) K/ul Hgb 12.5 (12.0-16.0) g/dl Hct 37.0 (34.1-44.9) % Plt Count 407 H (130-400) K/uL BMP 10/26/22 06:24 Sodium 131 L Potassium 3.3 L Chloride 96 L Carbon Dioxide 28 BUN 17 Creatinine 0.49 L Glucose 100 H Calcium 8.0 L
[2022-10-26] MEDS: ROSUVASTATIN CALCIUM 20 MG TAB PO SCH (20:24)
[2022-10-26] MEDS: PANTOprazole 40 MG TAB PO SCH (20:24)
[2022-10-26] MEDS: PROSOURCE NO CARB 30 ML/PKT PO SCH (20:24)
[2022-10-26] MEDS: clonazePAM 0.5 MG TAB PO PRN (22:45)
[2022-10-26] MEDS: ACETAMINOPHEN 1,000 MG/100 ML VIAL IV PRN (22:45)
[2022-10-27] MEDS: DOXYCYCLINE HYCLATE 100 MG in DEXTROSE 5% 100 ML IV SCH ×2 (00:04→11:59)
[2022-10-27] MEDS: COLESTIPOL HCL 1 GM TAB PO SCH ×4 (00:04→20:22)
[2022-10-27] MEDS ORDERED: KETOROLAC TROMETHAMINE 15 MG/ML VIAL IV ONE (00:45)
[2022-10-27] MEDS ORDERED: oxyCODONE HCL IR 5 MG TAB (IMMEDIATE RELEASE) PO STA (01:37)
[2022-10-27] MEDS: clonazePAM 0.5 MG TAB PO PRN (05:21)
[2022-10-27] MEDS: LABETALOL HCL IV 5 MG/ML 20ML IV PRN (05:22)
[2022-10-27 06:53] LABS: BUN Creatinine Ratio 25.5 (10-20); Calcium 7.7 mg/dl (8.5-10.1); Creatinine Clr Calc Pharmacy 65.3 ml/min; Est GFR (African American) 106.7 ml/min; Est GFR (Non-African American) 92.1 ml/min; Phosphorus 2.6 mg/dl (2.5-4.9); Potassium 3.4 mmol/L (3.5-5.1)
[2022-10-27] MEDS: FORMOTEROL 20 MCG/2 ML VIAL INH SCH ×2 (07:04→19:26)
[2022-10-27] MEDS: ALBUT/IPRATROP 3MG/0.5MG NEB 3 ML VIAL NEB SCH ×4 (07:04→19:26)
[2022-10-27] MEDS: ADVANCED PROBIOTIC 1250 MG CAPSULE PO SCH (08:26)
[2022-10-27] MEDS: CYANOCOBALAMIN (B-12) 500 MCG TABLET PO SCH (08:26)
[2022-10-27] MEDS: GABAPENTIN 300 MG CAP PO SCH ×3 (08:26→20:20)
[2022-10-27] MEDS: ESCITALOPRAM OXALATE 10 MG TAB PO SCH (08:26)
[2022-10-27] MEDS: FERROUS SULFATE 325 MG TAB PO SCH (08:26)
[2022-10-27] MEDS: CLOPIDOGREL BISULFATE 75 MG TAB PO SCH (08:26)
[2022-10-27] MEDS: FLUTICASONE PROPIONATE NA SPR 16 GM BTL SCH (08:27)
[2022-10-27] MEDS: DICLOFENAC SOD 1% GEL 100 GM TUBE EXT SCH ×4 (08:27→20:20)
[2022-10-27] MEDS: HEPARIN SOD 5,000 UNIT/0.5 ML VIAL SQ SCH ×2 (08:27→20:23)
[2022-10-27] MEDS: SUCRALFATE 1 GM TAB PO SCH ×2 (08:27→20:22)
[2022-10-27] MEDS: guaiFENesin 600 MG TABCR PO SCH ×2 (08:27→20:21)
[2022-10-27] MEDS: FAMOTIDINE 20 MG TAB PO SCH ×2 (08:27→20:20)
[2022-10-27] MEDS: LIDOCAINE 5% 1 PATCH TD SCH (08:27)
[2022-10-27] MEDS ORDERED: predniSONE 10 MG TABLET PO SCH (09:00)
[2022-10-27] MEDS ORDERED: POTASSIUM CHLORIDE 20 MEQ/15 ML UDC PO ONE (09:00)
[2022-10-27] MEDS ORDERED: clonazePAM 0.25 MG TAB PO PRN (11:21)
--- NOTE | 2022-10-27 13:01 | Neurology Progress Note ---
Date of Service October 27, 2022 Assessment & Plan (1) Acute encephalopathy: (2) Hypophosphatemia: (3) Abnormal involuntary movements: Plan This patient had an acute encephalopathy, October 23, likely multifactorial. Certainly, she was extremely hypoxic despite even oxygen with CO2 retention. these parameters have improved and she was doing very well with her mental status until she received clonazepam. Today on exam she has no lip smacking or tongue protrusion. There are no abnormal involuntary movements. I have no history of previous neuroleptic use in the past and [facility] nursing reports that they believe she smacks her lips and sticks out her tongue a lot because she has no teeth. I do not have any additional history to support this diagnosis however. The patient had marked hypophosphatemia on October 24 ( which can lead to confusion, delirium, speech problems, impaired motor skills, somnolence, abnormal involuntary movements, or seizures), but recently her phosphorus has been quite normal. She does have a little bit of a low calcium currently but other electrolytes are unremarkable from a neurologic standpoint.. After discussion with nursing staff at her [facility], patient was given tramadol several days prior to admission, for a couple of doses, but she was not on very much of this. No other medication was changed and the only other addition was a 4% lidocaine patch. I am not certain if these medication changes have anything to do with her current altered mental status. Recommendations: 1. Keep off benzodiazepines and other [employer]OD[employer]IST altering medication for now. I am sure once this weans off her mental status will improve again. 2. Avoid tramadol 3. continue gabapentin at 300 milligrams 3 times a day (her usual dose). 4. I see no need for additional neurologic imaging studies, EEG, or LP at this time. overall, I spent a total of 25 minutes with this case including review of records, direct evaluation the patient at bedside, and discussion of the case with the patient and RN at bedside, and Dr. Charlton, including differential diagnosis and treatment options. Admission and Anticipated Discharge Date Admission Date: October 23, 2022 Subjective Patient was improving with her mental status but received clonazepam this morning. She has been very sleepy since. Otherwise she is stable with no new neurologic issues or problems. TSH and B12 were unremarkable. CBC was unremarkable and Chem profile showed a normal phosphorus, mildly low sodium and potassium, and a low calcium. Blood pressure is 175/91 and she is afebrile. Results & Data ([facility]) Vital Signs (Past 12 Hours) Vital Signs Temp Pulse Pulse Resp BP BP Pulse Ox 10/27/22 10:13 97 H 16 100 10/27/22 08:03 36.6 C 100 H 20 L 175/91 H 95 10/27/22 07:41 10/27/22 07:05 82 16 94 10/27/22 03:11 36.4 C L 84 16 203/84 H 100 O2 Del Method O2 Flow Rate 10/27/22 10:13 Nasal Cannula 3 10/27/22 08:03 Nasal Cannula 3 10/27/22 07:41 Nasal Cannula 2 10/27/22 07:05 Nasal Cannula 3 10/27/22 03:11 Nasal Cannula 2 Exam (Neuro) Physical Exam: She is quite sleepy this morning. She can be aroused but goes right back to sleep. She will follow some 1 step commands and her limb seemed to have symmetrical strength. She has no facial droop or nystagmus. There are no abnormal involuntary movements. PG Care Time/CCT Total # of Minutes Spent Total Time Spent with Patient: Total time spent is greater than 50% in coordination of care (as documented) at patient's floor/unit and/or counseling patient: Coding Level of Care Code 25337 Subseq Hosp Care Lvl 2 Diagnoses Acute encephalopathy G93.40 Hypophosphatemia E83.39 Abnormal involuntary movements R25.9 Time Spent (min) 25
--- NOTE | 2022-10-27 13:14 | Hospitalist Progress Note ---
Date of Service October 27, 2022 Assessment & Plan (1) Acute exacerbation of chronic obstructive pulmonary disease (COPD): Plan Acute exacerbation of COPD Acute metabolic encephalopathy Acute on chronic respiratory failure with hypoxia and hypercarbia Chronic oxygen dependency--on 4 L at baseline Prior smoking history --CT head:There is no hemorrhage, mass effect, or evidence of acute territorial ischemia by CT criteria noting a motion compromised examination. --CXR:Cardiomegaly and emphysema with no acute cardiopulmonary abnormality identified. -- Urinalysis showed no signs of UTI --Urine tox screen Negative --Normal Ammonia level --TSH normal --Mildly elevated vitamin B12 Continue nebs, doxycycline, steroids Titrate oxygen to keep saturations 88 to 92% BiPAP while sleeping/at bedtime as needed Hypercarbia resolved Appreciate neurology input Tramadol discontinued--consider to discontinue upon discharge as well Mental Status continues to improve Weaning off of benzodiazepines Titrate down Prednisone as able H/O Fall Ambulatory dysfunction Reported fall 1 month Ago per family Uses walker at baseline Imaging studies negative for any fractures Fall precautions PT/OT as able Hypophosphatemia Hypokalemia Replete electrolytes as needed Monitor Right lower extremity pain H/O PVD Arterial Doppler:Peripheral arterial disease without arterial occlusion or elevated peak systolic velocities. Monophasic waveforms within the posterior tibial and peroneal arteries. Continue Plavix, statin Hyperlipidemia On statin GERD Continue home medications Depression On Lexapro Hypertension On diltiazem IV labetalol as needed BP slightly elevated likely due to steroids Adjust antihypertensives as needed DVT Px: Heparin SQ Code Status Full code Disposition PT OT prior to discharge Admission and Anticipated Discharge Date Admission Date: October 23, 2022 Subjective Patient is seen and examined at bedside States having poor sleep overnight Drowsy during my encounter this morning Discussed with neurology today Reports chronic bilateral leg pain Denies any chest pain, shortness of breath, dizziness, nausea, abdominal pain Tolerating diet Review of Systems Review of Systems: All systems reviewed & are unremarkable except as noted in Subjective Physical Exam Physical Exam: Physical Exam: Vitals signs as noted above General Appearance: Thin, frail, chronically appearing, no apparent distress Head: normocephalic, Atraumatic Eyes: normal inspection, EOMI Neck: supple, Trachea midline Respiratory/Chest: Decreased breath sounds, scattered rhonchi, No accessory muscle use Cardiovascular: S1, S2, No murmur Abdomen/GI:Soft, Non tender, Bowel sounds present Extremities/Musculoskeletal:normal inspection, no edema Neurologic/Psych:Alert Awake, oriented, grossly moves all extremities Skin: normal color, warm Results & Data Results & Data ([facility]) Vital Signs (Past 12 Hours) Vital Signs Temp Pulse Pulse Resp BP BP Pulse Ox 10/27/22 10:13 97 H 16 100 10/27/22 08:03 36.6 C 100 H 20 L 175/91 H 95 10/27/22 07:41 10/27/22 07:05 82 16 94 10/27/22 03:11 36.4 C L 84 16 203/84 H 100 O2 Del Method O2 Flow Rate 10/27/22 10:13 Nasal Cannula 3 10/27/22 08:03 Nasal Cannula 3 10/27/22 07:41 Nasal Cannula 2 10/27/22 07:05 Nasal Cannula 3 10/27/22 03:11 Nasal Cannula 2 Laboratory Results [facility] 10/27/22 05:34 Sodium 132 L Potassium 3.4 L Chloride 96 L Carbon Dioxide 29 BUN 13 Creatinine 0.51 L Glucose 105 H Calcium 7.7 L
[2022-10-27] MEDS: ROSUVASTATIN CALCIUM 20 MG TAB PO SCH (20:20)
[2022-10-27] MEDS: PROSOURCE NO CARB 30 ML/PKT PO SCH (20:21)
[2022-10-27] MEDS: PANTOprazole 40 MG TAB PO SCH (20:22)
[2022-10-27] MEDS ORDERED: clonazePAM 0.25 MG TAB PO STA (22:17)
[2022-10-28] MEDS: DOXYCYCLINE HYCLATE 100 MG in DEXTROSE 5% 100 ML IV SCH ×2 (00:40→12:31)
[2022-10-28] MEDS: ALBUT/IPRATROP 3MG/0.5MG NEB 3 ML VIAL NEB SCH ×4 (05:11→17:36)
[2022-10-28] MEDS: FORMOTEROL 20 MCG/2 ML VIAL INH SCH ×2 (05:11→20:16)
[2022-10-28] MEDS: COLESTIPOL HCL 1 GM TAB PO SCH ×3 (07:40→20:00)
[2022-10-28] MEDS: SUCRALFATE 1 GM TAB PO SCH ×2 (07:40→20:00)
[2022-10-28] MEDS: guaiFENesin 600 MG TABCR PO SCH ×2 (07:40→20:00)
[2022-10-28] MEDS: FAMOTIDINE 20 MG TAB PO SCH ×2 (07:41→20:00)
[2022-10-28] MEDS: GABAPENTIN 300 MG CAP PO SCH ×3 (07:41→20:02)
[2022-10-28] MEDS: HEPARIN SOD 5,000 UNIT/0.5 ML VIAL SQ SCH ×2 (07:41→20:00)
[2022-10-28] MEDS: ADVANCED PROBIOTIC 1250 MG CAPSULE PO SCH (07:41)
[2022-10-28] MEDS: ESCITALOPRAM OXALATE 10 MG TAB PO SCH (07:42)
[2022-10-28] MEDS: CYANOCOBALAMIN (B-12) 500 MCG TABLET PO SCH (07:42)
[2022-10-28] MEDS: FERROUS SULFATE 325 MG TAB PO SCH (07:42)
[2022-10-28] MEDS: DICLOFENAC SOD 1% GEL 100 GM TUBE EXT SCH ×4 (07:43→20:01)
[2022-10-28] MEDS: CLOPIDOGREL BISULFATE 75 MG TAB PO SCH (07:43)
[2022-10-28] MEDS: FLUTICASONE PROPIONATE NA SPR 16 GM BTL SCH (07:43)
[2022-10-28] MEDS: LIDOCAINE 5% 1 PATCH TD SCH (07:43)
[2022-10-28] MEDS ORDERED: POTASSIUM CHLORIDE CRTAB 20 MEQ TABCR PO STA (07:47)
[2022-10-28 08:01] LABS: Hematocrit (blood only) 35.6 % (34.1-44.9); Hemoglobin 12.1 g/dl (12.0-16.0); Mean Corpuscular Hemoglobin 29.7 pg (25.0-34.0); Mean Corpuscular Volume 87.5 fL (80.0-100.0); Mean Platelet Volume 9.4 fL (9.4-12.3); Platelet Count 368 K/uL (130-400); RDW Coefficient of Variation 13.4 % (11.5-14.5); RDW Standard Deviation 42.5 fL (36.4-46.3); Red Blood Count 4.07 M/uL (3.93-5.22); White Blood Count 11.31 K/ul (4.8-10.8)
[2022-10-28 08:37] LABS: BUN Creatinine Ratio 28.1 (10-20); Calcium 8.2 mg/dl (8.5-10.1); Creatinine Clr Calc Pharmacy 58.4 ml/min; Est GFR (African American) 102.9 ml/min; Est GFR (Non-African American) 88.8 ml/min; Phosphorus 1.5 mg/dl (2.5-4.9); Potassium 3.6 mmol/L (3.5-5.1)
[2022-10-28] MEDS ORDERED: predniSONE 10 MG TABLET PO SCH ×2 (09:00)
[2022-10-28] MEDS ORDERED: predniSONE 20 MG TAB PO SCH (09:00)
[2022-10-28] MEDS ORDERED: clonazePAM 0.25 MG TAB PO PRN (11:21)
[2022-10-28] MEDS ORDERED: POTASSIUM PHOS 3 MMOL/1 ML INFUSION IV STA (13:41)
--- NOTE | 2022-10-28 13:44 | Hospitalist Progress Note ---
Date of Service October 28, 2022 Assessment & Plan (1) Acute exacerbation of chronic obstructive pulmonary disease (COPD): Plan Acute exacerbation of COPD Acute metabolic encephalopathy Acute on chronic respiratory failure with hypoxia and hypercarbia Chronic oxygen dependency--on 4 L at baseline Prior smoking history --CT head:There is no hemorrhage, mass effect, or evidence of acute territorial ischemia by CT criteria noting a motion compromised examination. --CXR:Cardiomegaly and emphysema with no acute cardiopulmonary abnormality identified. -- Urinalysis showed no signs of UTI --Urine tox screen Negative --Normal Ammonia level --TSH normal --Mildly elevated vitamin B12 Plan: Continue on duo nebs every 6 hours. On prednisone 20 mg once daily; will wean down on discharge. Completed 5 days of doxycycline Titrate oxygen to keep saturations 88 to 92% BiPAP while sleeping/at bedtime as needed Mentation back to baseline. Stopped benzodiazepines, gabapentin dose decreased to 300 mg 3 times a day. H/O Fall Ambulatory dysfunction Reported fall 1 month Ago per family Uses walker at baseline Imaging studies negative for any fractures Fall precautions PT/OT pending Hypophosphatemia Hypokalemia Replete electrolytes as needed Monitor Right lower extremity pain H/O PVD Arterial Doppler:Peripheral arterial disease without arterial occlusion or elevated peak systolic velocities. Monophasic waveforms within the posterior t ibial and peroneal arteries. Continue Plavix, statin Hyperlipidemia On statin GERD Continue home medications Depression On Lexapro Hypertension On diltiazem IV labetalol as needed BP slightly elevated likely due to steroids Adjust antihypertensives as needed DVT Px: Heparin SQ Code Status Full code Disposition Discharge back to [facility], likely tomorrow am Admission and Anticipated Discharge Date Admission Date: October 23, 2022 Subjective Patient seen and examined at bedside. She is awake, alert, oriented to place, time and person. She is at her baseline oxygen requirement; denies any fever, chills, shortness of breath. She is looking forward to get discharged back to [facility]. Review of Systems Review of Systems: All systems reviewed & are unremarkable except as noted in Subjective Physical Exam Physical Exam: Physical Exam: Vitals signs as noted above General Appearance: Thin, frail, chronically appearing, no apparent distress Head: normocephalic, Atraumatic Eyes: normal inspection, EOMI Neck: supple, Trachea midline Respiratory/Chest: Bilateral clear breath sound Cardiovascular: S1, S2, No murmur Abdomen/GI:Soft, Non tender, Bowel sounds present Extremities/Musculoskeletal:normal inspection, no edema Neurologic/Psych:Alert Awake, oriented, grossly moves all extremities Skin: normal color, warm Results & Data Results & Data ([facility]) Vital Signs (Past 12 Hours) Vital Signs Temp Pulse Pulse Resp BP BP Pulse Ox 10/28/22 11:26 36.6 C 100 H 18 122/65 96 10/28/22 10:35 102 H 18 100 10/28/22 08:00 10/28/22 08:00 10/28/22 07:07 36.9 C 107 H 16 150/86 H 95 10/28/22 02:51 36.7 C 100 H 20 140/80 97 O2 Del Method O2 Del Method O2 Flow Rate 10/28/22 11:26 Nasal Cannula 3 10/28/22 10:35 Nasal Cannula 3 10/28/22 08:00 Room Air 10/28/22 08:00 Room Air 10/28/22 07:07 Nasal Cannula 3 10/28/22 02:51 Nasal Cannula 3 Laboratory Results Laboratory Results WBC 11.31 K/ul (4.8-10.8) H 10/28/22 07:47 RBC 4.07 M/uL (3.93-5.22) 10/28/22 07:47 Hgb 12.1 g/dl (12.0-16.0) 10/28/22 07:47 Hct 35.6 % (34.1-44.9) 10/28/22 07:47 MCV 87.5 fL (80.0-100.0) 10/28/22 07:47 MCH 29.7 pg (25.0-34.0) 10/28/22 07:47 MCHC 34.0 g/dL (32.0-36.0) 10/28/22 07:47 RDW Std Deviation 42.5 fL (36.4-46.3) 10/28/22 07:47 RDW Coeff of Renetta 13.4 % (11.5-14.5) 10/28/22 07:47 Plt Count 368 K/uL (130-400) 10/28/22 07:47 MPV 9.4 fL (9.4-12.3) 10/28/22 07:47 Immature Gran % (Auto) 0.4 % 10/22/22 22:20 Neut % (Auto) 64.1 % 10/22/22 22:20 Lymph % (Auto) 17.9 % 10/22/22 22:20 [place] % (Auto) 12.8 % 10/22/22 22:20 Eos % (Auto) 4.0 % 10/22/22 22:20 Baso % (Auto) 0.8 % 10/22/22 22:20 Neut # (Auto) 7.12 K/uL (1.4-6.5) H 10/22/22 22:20 Lymph # (Auto) 1.99 K/uL (1.2-3.4) 10/22/22 22:20 [place] # (Auto) 1.42 K/uL (0.24-0.82) H 10/22/22 22:20 Eos # (Auto) 0.45 K/uL (0-0.50) 10/22/22 22:20 Baso # (Auto) 0.09 K/uL (0-0.2) 10/22/22 22:20 Immature Gran # (Auto) 0.05 K/uL (0.00-0.02) H 10/22/22 22:20 VBG pH 7.48 (7.36-7.41) H 10/25/22 08:38 VBG pCO2 41 mmHg (38-50) 10/25/22 08:38 VBG pO2 59 mmHg 10/25/22 08:38 VBG HCO3 31 mmol/L 10/25/22 08:38 VBG O2 Saturation 92.4 % 10/25/22 08:38 VBG Base Excess 6.4 mEq/L 10/25/22 08:38 Sodium 129 mmol/L (136-145) L 10/28/22 07:47 Potassium 3.6 mmol/L (3.5-5.1) 10/28/22 07:47 Chloride 95 mmol/L (98-107) L 10/28/22 07:47 Carbon Dioxide 29 mmol/L (21-32) 10/28/22 07:47 Anion Gap 5 (3-11) 10/28/22 07:47 BUN 16 mg/dl (6-23) 10/28/22 07:47 Creatinine 0.57 mg/dl (0.6-1.2) L 10/28/22 07:47 Est Cr Clr Drug Dosing 58.4 ml/min 10/28/22 07:47 Est GFR ( Amer) 102.9 ml/min 10/28/22 07:47 Est GFR (Non-Af Amer) 88.8 ml/min 10/28/22 07:47 BUN/Creatinine Ratio 28.1 (10-20) H 10/28/22 07:47 Glucose 112 mg/dl (70-99(Fasting)) H 10/28/22 07:47 Calcium 8.2 mg/dl (8.5-10.1) L 10/28/22 07:47 Phosphorus 1.5 mg/dl (2.5-4.9) L* D 10/28/22 07:47 Magnesium 2.3 mg/dl (1.7-2.4) 10/25/22 08:38 Total Bilirubin 0.4 mg/dl (0.2-1.0) 10/22/22 22:20 AST 18 U/L (13-39) 10/22/22 22:20 ALT 14 U/L (7-52) 10/22/22 22:20 Alkaline Phosphatase 50 U/L (34-104) 10/22/22 22:20 Ammonia 39.0 umol/L (18-72) 10/23/22 09:31 Troponin I High Sens 8.0 pg/ml (0-14) 10/22/22 22:20 Total Protein 6.4 gm/dl (6.0-8.3) 10/22/22 22:20 Albumin 3.8 gm/dl (3.4-5.0) 10/22/22 22:20 Globulin 2.6 gm/dl (2.5-4.0) 10/22/22 22:20 Albumin/Globulin Ratio 1.5 (0.9-2) 10/22/22 22:20 Lipase 9 U/L (11-82) L 10/22/22 22:20 Vitamin B12 1122 pg/ml (180-914) H 10/25/22 08:38 TSH 0.909 uIu/ml (0.300-4.500) 10/25/22 08:38 Urine Color Yellow 10/23/22 11:30 Urine Appearance Clear (Clear) 10/23/22 11:30 Urine pH 6.5 (4.5-7.5) 10/23/22 11:30 Ur Specific [place] 1.009 (1.000-1.030) 10/23/22 11:30 Urine Protein Negative (Negative) 10/23/22 11:30 Urine Glucose (UA) Negative (Negative) 10/23/22 11:30 Urine Ketones Trace (Negative) H 10/23/22 11:30 Urine Blood Negative (Negative) 10/23/22 11:30 Urine Nitrite Negative (Negative) 10/23/22 11:30 Urine Bilirubin Negative (Negative) 10/23/22 11:30 Urine Urobilinogen Negative (Negative) 10/23/22 11:30 Ur Leukocyte Esterase Negative (Negative) 10/23/22 11:30 Nasal Screen MRSA (PCR) Negative (Negative) 10/23/22 11:30 Urine Opiates Screen Neg (Neg) 10/23/22 19:00 Ur Methadone, Qual Neg (Neg) 10/23/22 19:00 Urine Barbiturates Neg (Neg) 10/23/22 19:00 Ur Phencyclidine (PCP) Neg (Neg) 10/23/22 19:00 U Amphetamin/Meth Scrn Neg (Neg) 10/23/22 19:00 MDMA (Ecstasy) Screen Neg (Neg) 10/23/22 19:00 U Benzodiazepines Scrn Neg (Neg) 10/23/22 19:00 Ur Cocaine Metabolite Neg (Neg) 10/23/22 19:00 U Marijuana (THC) Screen Neg (Neg) 10/23/22 19:00 SARS-CoV-2 (PCR) NEGATIVE (Negative) 10/22/22 23:15 Influenza Type A (PCR) Negative (Neg) 10/22/22 23:15 Influenza Type B (PCR) Negative (Neg) 10/22/22 23:15 RSV (RT-PCR) Negative (Neg) 10/22/22 23:[address] 10/23/22 08:31 CT SCAN OF THE BRAIN WITHOUT IV CONTRAST CLINICAL HISTORY: Change in mental status. COMPARISON STUDY: CT of the brain dated 04/27/2022. TECHNIQUE: Unenhanced axial CT scan of the brain is performed from the vertex to the skull base. A dose lowering technique was utilized adhering to the principles of ALARA. The patient was scanned twice due to motion artifact. The examination is motion compromised. CT DOSE: 2763.53 mGy.cm FINDINGS: Brain parenchyma: There is age-related involutional change noting moderate to advanced subcortical and periventricular microangiopathic disease. There is no hemorrhage, mass effect, or evidence of acute territorial ischemia by CT criteria. Rojas-white matter differentiation is preserved. No extra-axial fluid collection is seen. Ventricles, sulci, cisterns: Prominent secondary to involutional change. Intracranial vasculature: There is atherosclerotic calcification of the cavernous carotid and vertebral arteries. Calvarium: Unremarkable. Sinuses and mastoids: The paranasal sinuses are clear. There are small mastoid effusions. Orbits: The bony orbits are grossly intact. There are bilateral ocular lens implants. IMPRESSION: There is no hemorrhage, mass effect, or evidence of acute territorial ischemia by CT criteria noting a motion compromised examination. ACT 112: Negative or not required by law. Electronically signed by: Anibal Elder M.D. 10/23/2022 12:19 PM Femur X-Ray 10/23/22 08:40 XR femur LT 2V routine, XR tibia fibula RT 2V CLINICAL HISTORY: Leg Pain, H/O Fall COMPARISON STUDY: None. FINDINGS: Left femur: No fracture or dislocation within the left femur. No significant left knee effusion. Soft tissues are unremarkable. Visualized pelvic bones are intact. Chondrocalcinosis within the left knee. Right tibia/fibula: No fracture or dislocation within the right tibia or fibula. Chondrocalcinosis noted within the right knee. No significant soft tissue swelling. IMPRESSION: 1. No fracture or dislocation within the left femur. 2. No fracture or dislocation within the right lower leg. ACT 112: Negative or not required by law. Electronically signed by: Jamie Maravilla M.D. 10/23/2022 1:08 PM Tibia/Fibula X-Ray 10/23/22 08:40 XR femur LT 2V routine, XR tibia fibula RT 2V CLINICAL HISTORY: Leg Pain, H/O Fall COMPARISON STUDY: None. FINDINGS: Left femur: No fracture or dislocation within the left femur. No significant left knee effusion. Soft tissues are unremarkable. Visualized pelvic bones are intact. Chondrocalcinosis within the left knee. Right tibia/fibula: No fracture or dislocation within the right tibia or fibula. Chondrocalcinosis noted within the right knee. No significant soft tissue swelling. IMPRESSION: 1. No fracture or dislocation within the left femur. 2. No fracture or dislocation within the right lower leg. ACT 112: Negative or not required by law. Electronically signed by: Jamie Maravilla M.D. 10/23/2022 1:08 PM Chest X-Ray 10/24/22 09:01 XR chest 1V portable HISTORY: Aspiration COMPARISON: Chest 10/22/2022. FINDINGS: No pneumothorax. No pleural effusions. Emphysema again noted. The heart is normal in size. Calcified granuloma no new focal lung consolidations to suggest a pneumonia. No evidence for pulmonary edema. Interstitial prominence of the lung bases likely due to vascular crowding from the emphysema. This remains unchanged. Old, healed left-sided rib fractures. IMPRESSION: Emphysema again noted. No new focal lung consolidations to suggest a pneumonia. ACT 112: Negative or not required by law. Electronically signed by: Jamie Maravilla M.D. 10/24/2022 9:28 AM Duplex Scan Lower Extremity Artery 10/25/22 15:34 US arterial duplex LE RT HISTORY: 77 years-old Female PVD COMPARISON: 06/05/2009 TECHNIQUE: Multiple real-time sonographic images of the] lower extremity arterial structures were obtained assessing grayscale appearance, color and spectral flow FINDINGS: Moderate atherosclerotic plaque. Triphasic waveforms noted about the level the knee. No arterial occlusion or elevated peak systolic velocities identified to suggest high-grade stenosis. Monophasic waveforms noted within the distal posterior tibial and peroneal arteries. Biphasic waveforms within the dorsalis pedis artery. Peak systolic velocities of 27 cm/s within the distal peroneal artery. IMPRESSION: 1. Peripheral arterial disease without arterial occlusion or elevated peak systo lic velocities. 2. Monophasic waveforms within the posterior tibial and peroneal arteries. ACT 112: Negative or not required by law. The above report was generated using voice recognition software. It may contain grammatical, syntax or spelling errors. Electronically signed by: Lonnie Oshea M.D. 10/26/2022 11:14 AM
[2022-10-28] MEDS ORDERED: POTASSIUM PHOSPHATE 30 MMOL in SODIUM CHLORIDE 0.9% 500 ML IV ONE (14:00)
[2022-10-28] MEDS: PROSOURCE NO CARB 30 ML/PKT PO SCH (19:59)
[2022-10-28] MEDS: PANTOprazole 40 MG TAB PO SCH (20:00)
[2022-10-28] MEDS: ROSUVASTATIN CALCIUM 20 MG TAB PO SCH (20:00)
[2022-10-28] MEDS ORDERED: MELATONIN 3 MG TAB PO PRN (22:56)
[2022-10-29] MEDS: ALBUT/IPRATROP 3MG/0.5MG NEB 3 ML VIAL NEB SCH ×2 (07:20→10:37)
[2022-10-29] MEDS: FORMOTEROL 20 MCG/2 ML VIAL INH SCH ×2 (07:20→07:28)
[2022-10-29 07:33] LABS: Basophils # (auto) 0.02 K/uL (0-0.2); Basophils % (auto) 0.2 %; Eosinophils # (auto) 0.16 K/uL (0-0.50); Eosinophils % (auto) 1.8 %; Hematocrit (blood only) 31.5 % (34.1-44.9); Hemoglobin 10.5 g/dl (12.0-16.0); Immature Granulocytes % (auto) 1.1 %; Lymphocytes # (auto) 1.87 K/uL (1.2-3.4); Lymphocytes % (auto) 20.6 %; Mean Corpuscular Hemoglobin 29.3 pg (25.0-34.0); Mean Corpuscular Hgb Conc 33.3 g/dL (32.0-36.0); Mean Platelet Volume 9.6 fL (9.4-12.3); Monocytes # (auto) 1.14 K/uL (0.24-0.82); Monocytes % (auto) 12.5 %; Neutrophils % (auto) 63.8 %; Platelet Count 346 K/uL (130-400); RDW Coefficient of Variation 13.7 % (11.5-14.5); RDW Standard Deviation 43.8 fL (36.4-46.3); Red Blood Count 3.58 M/uL (3.93-5.22); White Blood Count 9.09 K/ul (4.8-10.8)
[2022-10-29] MEDS: guaiFENesin 600 MG TABCR PO SCH (07:54)
[2022-10-29] MEDS: GABAPENTIN 300 MG CAP PO SCH ×2 (07:54→12:53)
[2022-10-29] MEDS: SUCRALFATE 1 GM TAB PO SCH (07:54)
[2022-10-29] MEDS: FAMOTIDINE 20 MG TAB PO SCH (07:55)
[2022-10-29] MEDS: COLESTIPOL HCL 1 GM TAB PO SCH (07:55)
[2022-10-29] MEDS: LIDOCAINE 5% 1 PATCH TD SCH (07:56)
[2022-10-29] MEDS: FERROUS SULFATE 325 MG TAB PO SCH (07:56)
[2022-10-29] MEDS: CYANOCOBALAMIN (B-12) 500 MCG TABLET PO SCH (07:56)
[2022-10-29] MEDS: ADVANCED PROBIOTIC 1250 MG CAPSULE PO SCH (07:57)
[2022-10-29] MEDS: ESCITALOPRAM OXALATE 10 MG TAB PO SCH (07:57)
[2022-10-29] MEDS: FLUTICASONE PROPIONATE NA SPR 16 GM BTL SCH (07:58)
[2022-10-29] MEDS: CLOPIDOGREL BISULFATE 75 MG TAB PO SCH (07:58)
[2022-10-29] MEDS: DICLOFENAC SOD 1% GEL 100 GM TUBE EXT SCH ×2 (07:58→12:47)
[2022-10-29] MEDS: HEPARIN SOD 5,000 UNIT/0.5 ML VIAL SQ SCH (07:58)
[2022-10-29 07:59] LABS: BUN Creatinine Ratio 23.2 (10-20); Calcium 8.4 mg/dl (8.5-10.1); Creatinine Clr Calc Pharmacy 59.5 ml/min; Est GFR (African American) 103.5 ml/min; Est GFR (Non-African American) 89.3 ml/min; Phosphorus 3.2 mg/dl (2.5-4.9); Potassium 4.5 mmol/L (3.5-5.1)
--- NOTE | 2022-10-29 08:37 | Neurology Progress Note ---
Date of Service October 29, 2022 Assessment & Plan (1) Acute encephalopathy: (2) Hypophosphatemia: (3) Abnormal involuntary movements: Plan This patient had an acute encephalopathy, October 23, likely multifactorial. Certainly, she was extremely hypoxic, despite even oxygen, with CO2 retention. These parameters have improved and she was doing very well with her mental status until she received clonazepam , the morning of October 27. She has not had any benzodiazepines since and she has been much more awake and alert.. Today on exam she has grimacing, lip smacking, and tongue protrusion, which waxes and wanes. She also has some mild to moderate postural and action tremor bilaterally. I have no history of previous neuroleptic use in the past and [facility] nursing reports that they believe she smacks her lips and sticks out her tongue a lot "because she has no teeth". I do not have any additional history to support a diagnosis of tardive dyskinesia, however. The patient had marked hypophosphatemia on October 24 and then again on October 28. This has been corrected by today. Hypophosphatemia can lead to confusion, delirium, speech problems, impaired motor skills, somnolence, abnormal involuntary movements, or seizures. there are no other significant lab abnormalities. After discussion with nursing staff at her detention, patient was given tramadol several days prior to admission, for a couple of doses, but she was not on very much of this. No other medication was changed and the only other addition was a 4% lidocaine patch. I am not certain if these medication changes have anything to do with her current altered mental status. She seems to be at her baseline neurologically. Recommendations: 1. Keep off benzodiazepines and other METER ATTENDANT altering medication 2. Avoid tramadol 3. continue gabapentin at 300 milligrams 3 times a day (her usual dose). 4. I see no need for additional neurologic imaging studies, EEG, or LP at this time. 5. monitor electrolytes and phosphorus as an outpatient. overall, I spent a total of 35 minutes with this case including review of records, direct evaluation the patient at bedside, and discussion of the case with the patient at bedside, and Dr. Hutson, including differential diagnosis and treatment options. Admission and Anticipated Discharge Date Admission Date: October 23, 2022 Subjective today the patient is feeling very well with no headache. She does have some right knee pain which is chronic. The patient is not lightheaded or dizzy and she is desirous of going back home. Blood pressure is 156/70. CBC shows some mild anemia and Chem profile was unremarkable except for mildly low sodium and calcium. Her phosphorus was normal today. Results & Data ([facility]) Vital Signs (Past 12 Hours) Vital Signs Temp Pulse Pulse Pulse Resp BP Pulse Ox 10/29/22 07:49 10/29/22 07:49 10/29/22 07:20 84 18 98 10/29/22 07:06 36.8 C 91 H 20 156/70 H 94 10/29/22 02:54 37.1 C 102 H 16 154/82 H 99 10/28/22 21:58 94 H 10/29/22 01:40 O2 Del Method O2 Del Method O2 Flow Rate 10/29/22 07:49 Room Air 10/29/22 07:49 Nasal Cannula 10/29/22 07:20 Nasal Cannula 3 10/29/22 07:06 Nasal Cannula 3 10/29/22 02:54 Nasal Cannula 3 10/28/22 21:58 10/29/22 01:40 Nasal Cannula 3 Exam (Neuro) Physical Exam: She is awake and alert. She is very pleasant and follows commands well. She is oriented to person place and time. Speech has a little bit of dysarthria but that is because of her tongue protrusion and lip smacking at times. This increases the more she talks and is animated. Extraocular muscles are intact without nystagmus. There is no facial droop. There is no ataxia [id number] testing but the patient does have some postural and action tremor bilaterally. Strength seems symmetrical limbs and she can't sit up in bed without too much difficulty. PG Care Time/CCT Total # of Minutes Spent Total Time Spent with Patient: Total time spent is greater than 50% in coordination of care (as documented) at patient's floor/unit and/or counseling patient: Coding Level of Care Code 12627 SUB INP/OBS CARE 2/35MIN Diagnoses Acute encephalopathy G93.40 Hypophosphatemia E83.39 Abnormal involuntary movements R25.9 Time Spent (min) 35
[2022-10-29] MEDS ORDERED: predniSONE 20 MG TAB PO SCH (09:00)
--- NOTE | 2022-10-29 12:20 | Discharge Summary ---
Date of Service October 29, 2022 Admission HPI Per Admitting Provider 77-year-old lady with PMH of chronic respiratory failure with hypoxia and hypercapnia on 4 L oxygen at home, COPD group D by Gold classification, centrilobular emphysema, pulmonary granuloma, ASCVD, PVD status post right common iliac artery stent and right external iliac artery angioplasty on 06/22/2014, sinus tachycardia, HLD, HTN, bilateral carotid artery occlusion, Schatzki's ring, esophageal reflux, anxiety was brought to our ED 10/23 from [facility] due to worsening confusion and acute worsening of her chronic right lower extremity pain. Patient was seen at bedside, patient confused but able to cooperate with physical examination, was oriented x1, not able to provide history, appeared to be in mild distress due to right anterior thigh pain which patient reports has improved somewhat from what she presented with. Towards the end of my examination, patient calmed down and appeared not to be in distress. Patient's daughter Katrina was given a phone call, who was already updated about patient's status by [facility], updated her and her daughter Janna reported that she has been complaining of this right leg pain since her fall from bed almost a month ago at [facility]. [facility] was given a phone call, spoke with patient's RN Aron, who stated that patient had appeared confused from auditor in charge yesterday and has been complaining of a lot of pain in her right lower extremity since the day prior to arrival. Per her, patient has right lower extremity pain on and off for a long time but this time she had acute worsening of the same pain. She confirmed that the patient fell from bed almost a month ago and was not injured at that time according to her. Also she stated that the patient did not find relief with increasing dose of her tramadol. Pt didn't have recent trauma or fall per her. ROS from the patient was not able due to confused status. Medications from outpatient chart reviewed. Patient is a former smoker, quit 04/24/2022. Had 64 pack years. Also used alcohol in the past. No recreational drug use per outpatient chart review. Admission Exam Per Admitting Provider GENERAL: Ox1. mild distress, on BPAP HEENT: No pallor, no icterus. Pupils equal, round and reactive to light. Oral mucosa moist. NECK: No JVD, no neck masses. HEART: S1 and S2 heard. tachycardia. No murmur, no gallop. RESPIRATORY SYSTEM: Normal AP diameter. No accessory muscle use. decreased breath sounds, bibasal wheezing noted. ABDOMEN: Soft, bowel sounds present, nontender, no distention. CENTRAL NERVOUS SYSTEM: No facial droop. Speech is clear. Obeys simple commands. Moves extremities. EXTREMITIES: No edema, no erythema seen. RLE with no trauma or obvious deformity. Principal Diagnosis Acute exacerbation of COPD Acute metabolic encephalopathy Acute on chronic respiratory failure with hypoxia and hypercarbia Discharge Exam Physical Exam: Vitals signs as noted above General Appearance: Thin, frail, chronically appearing, no apparent distress Head: normocephalic, Atraumatic Eyes: normal inspection, EOMI Neck: supple, Trachea midline Respiratory/Chest: Bilateral clear breath sound Cardiovascular: S1, S2, No murmur Abdomen/GI:Soft, Non tender, Bowel sounds present Extremities/Musculoskeletal:normal inspection, no edema Neurologic/Psych:Alert Awake, oriented, grossly moves all extremities Skin: normal color, warm Discharge Data Allergies Allergy/AdvReac Type Severity Reaction Status Date / Time metoclopramide Allergy Severe "lungs Verified 10/23/22 00:06 collapsed" cortisone Allergy Intermediate swelling Verified 10/23/22 00:06 salicylates Allergy Intermediate caused Verified 10/23/22 00:06 bleeding, can take EC aspirin Corticosteroids AdvReac Intermediate swelling Verified 10/23/22 00:06 (Glucocorticoids) Consultations 10/23/22 00:00 ED Decision to Admit Stat 10/24/22 09:18 Consult Neurology Routine Ordered Studies 10/23/22 08:31 CT head/brain wo con Urgent 10/25/22 15:34 US arterial duplex LE RT Routine Hospital Course (1) Acute exacerbation of chronic obstructive pulmonary disease (COPD): Plan Patient is a 77-year-old female with past medical history of chronic respiratory failure on 4 L oxygen at home, COPD who [facility] with worsening confusion. On presentation, she was alert oriented x1; unable to answer any questions. She was recently started on tramadol due to pain in her right leg. VBG was done which showed pH of 7.33 with PCO2 of 65. Patient was initially placed on BiPAP; tramadol was stopped along with Klonopin. Her gabapentin dose was decreased from 600 mg 3 times a day to 300 mg 3 times a day. Neurology was consulted for comanagement; recommended that encephalopathy was likely multifactorial secondary to CO2 narcosis and medication. No additional work-up was needed. Her mentation continued to improve throughout the hospitalization. On the day of the discharge, patient was alert oriented x3 and was answering all the questions appropriately. Patient was discharged back to [facility] with 2 more days of prednisone. Tramadol and Klonopin were discontinued. Gabapentin's dose was decreased. Total Time Total Time Spent Total Time Spent (In Minutes): 35 Total Time Includes: Examination of the Patient, Discharge Planning, Medication Reconciliation, Communication With Other Providers and Other Discharge Plan Discharge Items Patient Disposition: Transfer Snf Fac Reason For Visit: CONFUSION, EXACERBATION OF RT LEG PAIN Discharge Diagnosis: Acute exacerbation of COPD Acute metabolic encephalopathy Encephalopathy 2/2 polypharmacy Activity: Resume your previous activity Non-emergency contact: Primary Care Provider Call non-emergency contact if: you have any medication questions and your symptoms worsen Follow-up/Referrals: [facility] [Primary Care Provider] - Diet: Regular Addtl Attending Provider Instructions: You were admitted to the hospital with altered mental status and COPD exacerbation. The altered mental status was due to the medications you are on. Following changes have been made to your medication list: 1) stop tramadol. 2) stop Klonopin, loperamide 3) decrease the dose of gabapentin to 300 mg 3 times a day. For the COPD exacerbation, please take prednisone 20 mg for 2 more days. Pending Studies at Discharge: No Stand-Alone Forms: My [facility] Skilled Items Patient informed of condition?: No DNR: No Discharge Level of Care: Skilled Communicable Disease: No Discharge Prognosis: Stable Lines: None Urinary Catheter: No Medications and DC Order Prescriptions: New prednisone 20 mg Tablet 20 mg PO DAILY 2 Days Qty: 2 0RF gabapentin 300 mg Capsule 300 mg PO TID Qty: 90 0RF diclofenac sodium [Voltaren Arthritis Pain] 1 % Gel 4 g EXT Q4HWA Qty: 100 0RF Continued clopidogrel [Plavix] 75 mg Tablet 75 mg PO QAM Label Comments: PRESENTLY ON HOLD FOR COLONOSCOPY ferrous sulfate 325 mg (65 mg iron) Tablet 325 mg PO DAILY escitalopram oxalate [Lexapro] 5 mg Tablet 5 mg PO QAM cyanocobalamin (vitamin B-12) 500 mcg Tablet, Sublingual 500 mcg SUBLINGUAL QAM famotidine [Pepcid] 20 mg tablet 20 mg PO BID sucralfate [Carafate] 1 gram tablet 1 g PO BID Atrovent HFA 17 mcg/actuation HFA aerosol inhaler 2 puff INHALATION Q4H PRN (Reason: asthma) arformoterol [Brovana] 15 mcg/2 mL Solution For Nebulization 15 mcg inhalation BID pantoprazole [Protonix] 40 mg tablet,delayed release (DR/EC) 40 mg PO QPM magnesium hydroxide [Milk of Magnesia] 400 mg/5 mL Suspension 30 ml PO HS PRN (Reason: Constipation) bisacodyl [Dulcolax (bisacodyl)] 10 mg Suppository 10 mg HI DAILY PRN (Reason: Constipation) colestipol 1 gram Tablet 1 g PO TID diltiazem HCl 60 mg Capsule,Extended Release 12 Hr 60 mg PO QAM ipratropium-albuterol 0.5 mg-3 mg(2.5 mg base)/3 mL Solution For Nebulization 3 ml INHALATION QID rosuvastatin 10 mg Tablet 20 mg PO HS protein supplement Liquid 1 ea PO QPM Rx Instructions: GIVE 30 ML. guaifenesin 600 mg tablet extended release 12hr 600 mg PO Q12 Lactobacillus acidophilus Tablet,Chewable 1 tab PO BID Saccharomyces boulardii 250 mg Capsule 500 mg PO BID acetaminophen [Tylenol] 325 mg Tablet 650 mg PO Q6 MDD 3g PRN (Reason: Fever) acetaminophen [Tylenol] 325 mg Tablet 650 mg PO Q6 PRN (Reason: pain 1-4) albuterol sulfate 90 mcg/actuation HFA aerosol inhaler 2 puff INHALATION Q12 PRN (Reason: Wheezing) mometasone 50 mcg/actuation spray,non-aerosol 2 spray INTRANASAL DAILY lidocaine 4 % Adhesive Patch,Medicated 1 patch TOPICAL DAILY Rx Instructions: apply patch to right thigh in the morning for 2 weeks start 10/22/22 remove at bedtime Discontinued clonazepam 0.5 mg tablet 0.5 mg PO TID tramadol 50 mg tablet 75 mg PO Q6 PRN (Reason: pain,moderate-severe) gabapentin 600 mg tablet 600 mg PO TID loperamide 2 mg Tablet 2 mg PO Q6H MDD 16mg/24hours PRN (Reason: Diarrhea) Discharge Orders: Discharge Order (Routine); Ordered 10/29/22 Ordered By: David Augustine Admission Data Admit Date/Time: 10/23/22 00:52 Attending Provider: David Augustine Admit Provider: Nikolai Huang Primary Care Provider: Panchito,Jenny Other Providers: Nikolai Huang ; Panchito,[facility] ; Xavier Galicia Other Interventions: Discharge Summary Assessment (RN) Last Done: 10/29/22 10:25
== END 2022-10-29 13:20 | DRG 190 ==
LOC: ED 22:17 → SUATTDRO 10-23 00:52 → EDINP 10-23 00:52 → 2S 10-23 03:40

== ENCOUNTER 2022-12-10 09:05 | Inpatient (IN) ==
--- NOTE | 2022-12-10 09:30 | Emergency Department Note ---
Impression & Plan Abdominal pain, COPD (chronic obstructive pulmonary disease), Transient confusion ED Provider Note ED Provider Note NAME: MARLENA PHILLIPS AGE:77 SEX: Female : 1945 ARRIVES VIA: EMS INFORMANT: Patient ED PROVIDER(s): Salome Burkett DO CHIEF COMPLAINT: Abdominal pain HPI: This is a 77-year-old female who presents emergency department complaining of left lower quadrant abdominal pain for 1 week. She states pain is intermittent but cannot pinpoint any exacerbating or alleviating factors. She states pain is otherwise nonradiating. She states she did have 1 episode of nonbloody diarrhea this morning, no other recent change in urine or stools. She denies fevers or chills. Patient with chronic severe COPD and wears 4 L/min of oxygen via nasal cannula chronically. She states no other recent illness or change in medications. PAST MEDICAL HISTORY:See Below PAST SURGICAL HISTORY:See Below FAMILY HISTORY:See Below SOCIAL HISTORY:See Below HOME MEDICATIONS:See Below ALLERGIES:See Below VITALS:See Below PHYSICAL EXAMINATION: GENERAL: alert, well appearing, well nourished, no distress, non-toxic, nasal cannula in place EYE EXAM: normal conjunctiva, PERRL and EOM's grossly intact OROPHARYNX: no exudate, no erythema, lips, buccal mucosa, and tongue normal and mucous membranes are moist NECK: supple, no nuchal rigidity, no adenopathy, non-tender LUNGS: Decreased bilaterally to auscultation. Normal chest wall mechanics, no r/r, scattered expiratory wheeze, frequent cough noted during exam HEART: no murmurs, S1 normal and S2 normal ABDOMEN: abdomen soft, mild LLQ tenderness, normo-active bowel sounds, no masses, no rebound or guarding. BACK: Back is symmetrical on inspection and there is no deformity, no midline tenderness, no CVA tenderness. SKIN: no rashes, petechiae, orbruising UPPER EXTREMITIES: upper extremities are grossly normal. FROM, nml pulses b/l. LOWER EXTREMITIES: No pitting edema. FROM, nml pulses b/l. NEURO EXAM: Normal sensorium, cranial nerves II-XII grossly intact, normal speech, no facial droop,nogross weakness of arms, no gross weakness of legs. Gross sensation intact. No ataxia. Vital Signs: reviewed and remarkable Differential Diagnosis: gastritis, peptic ulcer disease, GERD, gallbladder disease, pancreatitis, small bowel obstruction, ischemic bowel, irritable bowel disease, irritable bowel syndrome, appendicitis, diverticulitis, malignancy, hernia, urinary tract infection, perforation, infectious. MEDICAL DECISION MAKING: This is a 77-year-old female who presented due to concern for abdominal pain. Labs drawn and sent, IV established, patient placed on telemetry and kept on her usual 4 L/min of oxygen via nasal cannula. While awaiting blood work and imaging patient then stated that she wanted to leave although she seemed confused to date/time and how she was getting home. Due to concern for her ability to make a rational informed decision we did contact her daughter who states she has gotten confused previously with a urinary tract infection. Patient was ultimately able to be redirected and got back in bed. A new IV site was established. And patient sent for CT imaging. CT with findings of possible cystitis suggestive of UTI, no other acute findings noted on abdomen/pelvis CT. Vital signs stable however was noted with coarse coughing patient would desat into the 70s despite her oxygen supplementation via nasal cannula. Patient was sent back for CT head as a precaution. Chest x-ray also added. Patient given 2 DuoNebs while in the emergency room. We did contact [facility] where the patient resides to discuss her current condition and what led to her EMS transport today. After discussion with case management, we feel patient is unlikely to do well if she attempts to return home due to some of her agitation, increased cough and trouble breathing, unsteady gait, and complaints of abdominal pain and that she would be return to the ER expeditiously. Case discussed with hospitalist for additional evaluation and management. Consultation(s): 1600: Discussed with Dr. Stewart, [facility] hospitalist service. ER Treatment Provided: See below Diagnostics Interpreted By Me: -ECG: -Cardiac Monitoring: An order was placed for continuous cardiac monitoring. The monitor shows a rate of 98 with normal sinus rhythm. -Laboratory studies: As stated above and show below. -Imaging studies: [] Triage Nursing Note Reviewed Prior/Outside Records Reviewed Procedures: [] Critical Care: [] Past Med/Surg History Medical History Anxiety Arthritis Asymptomatic bilateral carotid artery stenosis "s/p bilateral carotid endarterectomy" CAD (coronary artery disease) F/U DR Angélica LEONARDO Chronic obstructive pulmonary disease OXYGEN 3-4 L/MIN CONTINUOUSLY Diarrhea Difficulty swallowing GERD (gastroesophageal reflux disease) History of anemia History of esophageal dilatation History of esophageal stricture History of GI bleed Hyperlipidemia Hypertension halfway resident resident of [facility] rehab Osteoporosis PVD (peripheral vascular disease) SOB (shortness of breath) on exertion TIA (transient ischemic attack) Surgical History H/O carotid endarterectomy R/L H/O hemorrhoidectomy H/O knee surgery H/O vascular surgery RIGHT ILIAC ARTERY STENT PLACEMENT History of appendectomy History of cardiac cath NO STENTS History of cataract surgery R/L History of colonoscopy History of esophagogastroduodenoscopy (EGD) Family History Other No family history of adverse response to anesthesia Social History Smoking Status: Former smoker Age Started Using Tobacco: 19; packs per day: 2; Cigarettes Per Day: 5-10 CIG a day ADVISED; Hx Alcohol Use: No Hx Substance Use: No Preferred Language: Georgian Communication Ability: Effective Door Installer Required: No Beliefs That Will Affect Care: None marital status: / Current Living Situation: Snf Current Living Situation Comment: [facility] How many Children do You have: 1 Feels Safe at Home: Yes Assistive Devices: Oxygen - Continuous, Walker and Wheelchair Allergies Allergies Allergy/AdvReac Type Severity Reaction Status Date / Time metoclopramide Allergy Severe "lungs Verified 12/10/22 16:01 collapsed" cortisone Allergy Intermediate swelling Verified 12/10/22 16:01 salicylates Allergy Intermediate caused Verified 12/10/22 16:01 bleeding, can take EC aspirin Corticosteroids AdvReac Intermediate swelling Verified 12/10/22 16:01 (Glucocorticoids) Home Meds Home Medications Medication Instructions Recorded Confirmed clopidogrel 75 mg tablet (Plavix) 75 mg PO QAM 08/15/19 12/10/22 cyanocobalamin (vitamin B-12) 500 500 mcg sublingual QAM 08/15/19 12/10/22 mcg sublingual tablet escitalopram oxalate 5 mg tablet 5 mg PO QAM 08/15/19 12/10/22 (Lexapro) ferrous sulfate 325 mg (65 mg 325 mg PO DAILY 08/15/19 12/10/22 iron) tablet arformoterol 15 mcg/2 mL solution 15 mcg inhalation BID17 12/02/19 12/10/22 for nebulization (Brovana) famotidine 20 mg tablet (Pepcid) 20 mg PO BID 12/02/19 12/10/22 ipratropium bromide 17 2 puff inhalation Q4H PRN asthma 12/02/19 12/10/22 mcg/actuation HFA aerosol inhaler (Atrovent HFA) sucralfate 1 gram tablet (Carafate) 1 g PO BID 12/02/19 12/10/22 pantoprazole 40 mg tablet,delayed 40 mg PO DAILY 12/04/19 12/10/22 release (Protonix) diltiazem HCl 60 mg 60 mg PO QAM 02/17/22 12/10/22 capsule,extended release 12 hr ipratropium 0.5 mg-albuterol 3 mg 3 ml inhalation Q4H PRN Shortness 04/27/22 12/10/22 (2.5 mg base)/3 mL nebulization Of Breath Or Wheezing soln protein supplement 1 ea PO QPM 04/27/22 12/10/22 rosuvastatin 10 mg tablet 20 mg PO HS 04/27/22 12/10/22 bisacodyl 10 mg rectal suppository 10 mg VA DAILY PRN Constipation 06/19/22 12/10/22 (Dulcolax (bisacodyl)) colestipol 1 gram tablet 1 g PO TID 06/19/22 12/10/22 magnesium hydroxide 400 mg/5 mL 30 ml PO HS PRN Constipation 06/19/22 12/10/22 oral suspension (Milk of Magnesia) Lactobacillus acidophilus 1 tab PO BID 10/22/22 12/10/22 Saccharomyces boulardii 250 mg 500 mg PO BID 10/22/22 12/10/22 capsule acetaminophen 325 mg tablet 650 mg PO Q6 PRN pain 1-4/FEVER 10/22/22 12/10/22 (Tylenol) >100 albuterol sulfate 90 mcg/actuation 2 puff inhalation Q12 PRN Wheezing 10/22/22 12/10/22 aerosol inhaler guaifenesin 600 mg tablet, 600 mg PO Q12 10/22/22 12/10/22 extended release 12 hr mometasone 50 mcg/actuation nasal 1 spray intranasal DAILY 10/22/22 12/10/22 spray lidocaine 4 % topical patch 1 patch topical DAILY 10/23/22 12/10/22 buspirone 15 mg tablet 7.5 mg PO TID 12/10/22 12/10/22 clonazepam 0.5 mg tablet 0.5 mg PO TID 12/10/22 12/10/22 diclofenac sodium 1 % topical gel 4 g EXT Q4H 12/10/22 12/10/22 (Voltaren Arthritis Pain) gabapentin 400 mg capsule 400 mg PO TID 12/10/22 12/10/22 ipratropium 0.5 mg-albuterol 3 mg 3 ml inhalation QID 12/10/22 12/10/22 (2.5 mg base)/3 mL nebulization soln ondansetron HCl 4 mg tablet 4 mg PO Q6H PRN NAUSEA/VOMITING 12/10/22 12/10/22 prednisone 10 mg tablet 15 mg PO DAILY 12/10/22 12/10/22 tramadol 50 mg tablet 50 mg PO Q12H PRN Pain 12/10/22 12/10/22 Results & Data (ED) Vital Signs Vital Signs - 24 hr 12/10/22 15:13 Pulse Rate [Finger] 116 H Pulse Rhythm [Finger] Regular Pulse Strength [Finger] Normal Respiratory Rate 27 H Respiratory Effort / Characteristics Labored Respiratory Depth Shallow Respiratory Pattern Tachypnea Blood Pressure [Left Arm] 160/78 H Blood Pressure Mean [Left Arm] 105 Blood Pressure Position [Left Arm] Lying Pulse Oximetry 94 Oxygen Delivery Method Nasal Cannula Oxygen Flow Rate 4 Laboratory Data 12/11/22 09:13 12/11/22 09:13 Lab Results 12/10/22 12/10/22 12/10/22 Range/Units 09:24 09:24 12:13 WBC 11.68 H (4.8-10.8) K/ul RBC 4.06 L (4.20-5.40) M/uL Hgb 12.0 (12.0-16.0) g/dl Hct 37.2 (37.0-47.0) % MCV 91.6 (80.0-100.0) fL MCH 29.6 (25.0-34.0) pg MCHC 32.3 (32.0-36.0) g/dL RDW Std Deviation 45.2 (36.4-46.3) fL RDW Coeff of Renetta 13.3 (11.5-14.5) % Plt Count 382 (130-400) K/uL MPV 9.2 L (9.4-12.4) fL Immature Gran % (Auto) 1.4 % Neut % (Auto) 76.5 % Lymph % (Auto) 8.8 % Pender % (Auto) 10.4 % Eos % (Auto) 2.2 % Baso % (Auto) 0.7 % Neut # (Auto) 8.94 H (1.40-6.50) K/uL Lymph # (Auto) 1.03 L (1.2-3.4) K/uL Pender # (Auto) 1.21 H (0.11-0.59) K/uL Eos # (Auto) 0.26 (0-0.50) K/uL Baso # (Auto) 0.08 (0-0.2) K/uL Immature Gran # (Auto) 0.16 (0.01-0.20) K/uL ABG pH (7.35-7.45) ABG pCO2 (35-46) mmHg ABG pO2 (80-95) mmHg ABG HCO3 (19-24) mmol/L ABG O2 Saturation (90-95) % ABG Base Excess (-9-1.8) mEq/L Alex Test (Pos) Oxygen Given Sodium Cancelled 133 L Potassium Cancelled 4.1 Chloride Cancelled 92 L Carbon Dioxide Cancelled 35 H Anion Gap Cancelled 6 BUN Cancelled 11 Creatinine Cancelled 0.69 Est Cr Clr Drug Dosing Cancelled 48.3 Est GFR ( Amer) Cancelled 96.6 Est GFR (Non-Af Amer) Cancelled 83.4 BUN/Creatinine Ratio Cancelled 15.9 Glucose Cancelled 123 H Calcium Cancelled 9.0 Magnesium Cancelled 1.9 Total Bilirubin Cancelled 0.5 AST Cancelled 18 ALT Cancelled 15 Alkaline Phosphatase Cancelled 60 Total Protein Cancelled 7.0 Albumin Cancelled 3.8 Globulin Cancelled 3.2 Albumin/Globulin Ratio Cancelled 1.2 Lipase Cancelled 9 L Urine Color Urine Appearance (Clear) Urine pH (4.5-7.5) Ur Specific Ingalls (1.000-1.030) Urine Protein (Negative) Urine Glucose (UA) (Negative) Urine Ketones (Negative) Urine Blood (Negative) Urine Nitrite (Negative) Urine Bilirubin (Negative) Urine Urobilinogen (Negative) Ur Leukocyte Esterase (Negative) Urine WBC (Auto) (0-5) /hpf Urine RBC (Auto) (0-4) /hpf U Hyaline Cast (Auto) (0-5) /lpf U Epithel Cells (Auto) (0-5) /lpf Urine Bacteria (Auto) (Negative) SARS-CoV-2, RNA, NAAT (NEGATIVE) 12/10/22 12/10/22 12/10/22 Range/Units 13:08 15:30 15:50 WBC (4.8-10.8) K/ul RBC (4.20-5.40) M/uL Hgb (12.0-16.0) g/dl Hct (37.0-47.0) % MCV (80.0-100.0) fL MCH (25.0-34.0) pg MCHC (32.0-36.0) g/dL RDW Std Deviation (36.4-46.3) fL RDW Coeff of Renetta (11.5-14.5) % Plt Count (130-400) K/uL MPV (9.4-12.4) fL Immature Gran % (Auto) % Neut % (Auto) % Lymph % (Auto) % Pender % (Auto) % Eos % (Auto) % Baso % (Auto) % Neut # (Auto) (1.40-6.50) K/uL Lymph # (Auto) (1.2-3.4) K/uL Pender # (Auto) (0.11-0.59) K/uL Eos # (Auto) (0-0.50) K/uL Baso # (Auto) (0-0.2) K/uL Immature Gran # (Auto) (0.01-0.20) K/uL ABG pH 7.42 (7.35-7.45) ABG pCO2 58 H (35-46) mmHg ABG pO2 131 H (80-95) mmHg ABG HCO3 38 H (19-24) mmol/L ABG O2 Saturation 99.7 H (90-95) % ABG Base Excess 10.8 H (-9-1.8) mEq/L Alex Test Pos (Pos) Oxygen Given 4.5 L Sodium Potassium Chloride Carbon Dioxide Anion Gap BUN Creatinine Est Cr Clr Drug Dosing Est GFR ( Amer) Est GFR (Non-Af Amer) BUN/Creatinine Ratio Glucose Calcium Magnesium Total Bilirubin AST ALT Alkaline Phosphatase Total Protein Albumin Globulin Albumin/Globulin Ratio Lipase Urine Color Yellow Urine Appearance Clear (Clear) Urine pH 6.0 (4.5-7.5) Ur Specific Ingalls > 1.045 H (1.000-1.030) Urine Protein Trace H (Negative) Urine Glucose (UA) Negative (Negative) Urine Ketones Negative (Negative) Urine Blood Negative (Negative) Urine Nitrite Negative (Negative) Urine Bilirubin Negative (Negative) Urine Urobilinogen Negative (Negative) Ur Leukocyte Esterase Negative (Negative) Urine WBC (Auto) 0 (0-5) /hpf Urine RBC (Auto) 0-4 (0-4) /hpf U Hyaline Cast (Auto) 1-5 (0-5) /lpf U Epithel Cells (Auto) 0-5 (0-5) /lpf Urine Bacteria (Auto) Negative (Negative) SARS-CoV-2, RNA, NAAT NEGATIVE (NEGATIVE) Administered Medications Acetaminophen (Acetaminophen 325 Mg Tab) 650 mg PO Q6 PRN PRN Reason: pain 1-4/FEVER >100 Stop: 01/09/23 20:15 Last Admin: 12/11/22 10:33 Dose: 650 mg Documented By: SUSANA Buspirone HCl (Buspirone 7.5 Mg Tab) 7.5 mg PO TID [facility] Stop: 01/09/23 20:59 Last Admin: 12/11/22 14:36 Dose: 7.5 mg Documented By: Admin: 12/11/22 08:32 Dose: 7.5 mg Documented By: Admin: 12/10/22 21:41 Dose: 7.5 mg Documented By: MARLEN Clopidogrel Bisulfate (Clopidogrel Bisulfate 75 Mg Tab) 75 mg PO QAM [facility] Stop: 01/10/23 08:59 Last Admin: 12/11/22 08:32 Dose: 75 mg Documented By: SUSANA Colestipol HCl (Colestipol Hcl 1 Gm Tab) 1 gm PO TID [facility] Stop: 01/09/23 20:59 Last Admin: 12/11/22 14:36 Dose: 1 gm Documented By: Admin: 12/11/22 08:31 Dose: 1 gm Documented By: Admin: 12/10/22 21:41 Dose: 1 gm Documented By: MARLEN Cyanocobalamin (Cyanocobalamin (B-12) 500 Mcg Tablet) 500 mcg PO QAM [facility] Stop: 01/10/23 08:59 Last Admin: 12/11/22 08:32 Dose: 500 mcg Documented By: SUSANA Diclofenac Sodium (Diclofenac Sod 1% Gel 100 Gm Tube) 4 gm EXT Q4H [facility]; Protocol Stop: 01/09/23 20:15 Last Admin: 12/11/22 14:36 Dose: 4 gm Documented By: Admin: 12/11/22 11:39 Dose: 4 gm Documented By: Admin: 12/11/22 08:30 Dose: 4 gm Documented By: Admin: 12/11/22 02:46 Dose: 4 gm Documented By: Admin: 12/10/22 23:35 Dose: Not Given Documented By: Admin: 12/10/22 23:35 Dose: Not Given Documented By: MARLEN Diltiazem HCl (Diltiazem Sr 60 Mg Cap) 60 mg PO QAM [facility] Stop: 01/10/23 08:59 Last Admin: 12/11/22 08:32 Dose: 60 mg Documented By: SUSANA Escitalopram Oxalate (Escitalopram Oxalate 10 Mg Tab) 5 mg PO QAM [facility] Stop: 01/10/23 08:59 Last Admin: 12/11/22 08:32 Dose: 5 mg Documented By: SUSANA Famotidine (Famotidine 20 Mg Tab) 20 mg PO BID [facility] Stop: 01/09/23 20:59 Last Admin: 12/11/22 08:31 Dose: 20 mg Documented By: Admin: 12/10/22 21:41 Dose: 20 mg Documented By: MARLEN Ferrous Sulfate (Ferrous Sulfate 325 Mg Tab) 325 mg PO DAILY [facility] Stop: 01/10/23 08:59 Last Admin: 12/11/22 08:32 Dose: 325 mg Documented By: SUSANA Fluticasone Propionate (Fluticasone Propionate Na Spr 16 Gm Btl) 1 sprays MALATHI DAILY [facility] Stop: 01/10/23 08:59 Last Admin: 12/11/22 08:31 Dose: 1 sprays Documented By: SUSANA Guaifenesin (Guaifenesin 600 Mg Tabcr) 600 mg PO Q12 [facility] Stop: 01/09/23 20:59 Last Admin: 12/11/22 08:31 Dose: 600 mg Documented By: Admin: 12/10/22 21:41 Dose: 600 mg Documented By: MARLEN Sodium Chloride (Nss 1000ml) 1,000 mls @ 125 mls/hr IV .Q8H [facility] Stop: 01/09/23 09:29 Last Admin: 12/11/22 09:09 Dose: 125 mls/hr Documented By: Infusion: 12/11/22 09:09 Dose: 125 mls/hr Documented By: Infusion: 12/11/22 08:38 Dose: 125 mls/hr Documented By: Infusion: 12/11/22 07:03 Dose: 0 mls/hr Documented By: Admin: 12/11/22 06:17 Dose: 125 mls/hr Documented By: Infusion: 12/11/22 05:39 Dose: 125 mls/hr Documented By: Admin: 12/10/22 21:39 Dose: 125 mls/hr Documented By: Admin: 12/10/22 21:01 Dose: Not Given Documented By: MARLEN Lactobacillus Acidophilus (Advanced Probiotic 1250 Mg Capsule) 2 cap PO BID [facility] Stop: 01/10/23 08:59 Last Admin: 12/11/22 08:31 Dose: 2 cap Documented By: SUSANA Lidocaine (Lidocaine 5% 1 Patch) 1 patch TD DAILY [facility] Stop: 01/10/23 08:59 Last Admin: 12/11/22 08:33 Dose: 1 patch Documented By: SUSANA Pantoprazole Sodium (Pantoprazole 40 Mg Tab) 40 mg PO DAILY [facility] Stop: 01/10/23 08:59 Last Admin: 12/11/22 08:31 Dose: 40 mg Documented By: SUSANA Prednisone (Prednisone 5 Mg Tab) 15 mg PO DAILY [facility] Stop: 01/10/23 08:59 Last Admin: 12/11/22 08:31 Dose: 15 mg Documented By: SUSANA Rosuvastatin Calcium (Rosuvastatin Calcium 20 Mg Tab) 20 mg PO HS [facility] Stop: 01/09/23 20:59 Last Admin: 12/10/22 23:02 Dose: 20 mg Documented By: MARLEN Sucralfate (Sucralfate 1 Gm Tab) 1 gm PO BID [facility] Stop: 01/09/23 20:59 Last Admin: 12/11/22 08:31 Dose: 1 gm Documented By: Admin: 12/10/22 23:02 Dose: 1 gm Documented By: MARLEN Discontinued Medications Albuterol (Albut/Ipratrop 3mg/0.5mg Neb 3 Ml Vial) 3 ml NEB NOW STA; Protocol Stop: 12/10/22 14:42 Last Admin: 12/10/22 15:12 Dose: 3 ml Documented By: DANI Albuterol (Albut/Ipratrop 3mg/0.5mg Neb 3 Ml Vial) 3 ml INH QID [facility]; Protocol Stop: 01/09/23 20:15 Last Admin: 12/11/22 07:08 Dose: 3 ml Documented By: Admin: 12/10/22 22:28 Dose: Not Given Documented By: Admin: 12/10/22 22:28 Dose: 3 ml Documented By: CRISTAL Formoterol Fumarate (Formoterol 20 Mcg/2 Ml Vial) 20 mcg INH BID17 [facility] Stop: 01/10/23 08:59 Last Admin: 12/11/22 11:11 Dose: 20 mcg Documented By: ANTONIO Acetaminophen (Ofirmev) 1,000 mg in 100 mls @ 400 mls/hr IV NOW STA Stop: 12/10/22 16:08 Last Infusion: 12/10/22 16:26 Dose: 0 mls/hr Documented By: Admin: 12/10/22 16:12 Dose: 400 mls/hr Documented By: DANI Ioversol (Optiray 350 100ml) 91 ml IV ONCE ONE Stop: 12/10/22 13:58 Last Admin: 12/10/22 13:59 Dose: 91 ml Documented By: GREGG Lorazepam (Lorazepam 2 Mg/1 Ml Vial) 0.5 mg IV NOW STA Stop: 12/10/22 12:36 Last Admin: 12/10/22 12:57 Dose: 0.5 mg Documented By: DANIEL Lorazepam (Lorazepam 2 Mg/1 Ml Vial) 0.5 mg IV NOW STA Stop: 12/10/22 15:41 Last Admin: 12/10/22 16:12 Dose: 0.5 mg Documented By: RSL Discharge Plan Visit Data Chief Complaint: Abdominal Pain Stated Complaint: abd pain ED Provider: Salome Burkett Discharge Problem: Abdominal pain, COPD (chronic obstructive pulmonary disease), Transient confusion Patient Disposition: Admitted As Inpatient Discharge Instructions Interventions: ED Discharge Assessment Last Done: 12/10/22 19:23
[2022-12-10 09:41] LABS: Basophils # (auto) 0.08 K/uL (0-0.2); Basophils % (auto) 0.7 %; Eosinophils # (auto) 0.26 K/uL (0-0.50); Eosinophils % (auto) 2.2 %; Hematocrit (blood only) 37.2 % (37.0-47.0); Immature Granulocytes # (auto) 0.16 K/uL (0.01-0.20); Immature Granulocytes % (auto) 1.4 %; Lymphocytes # (auto) 1.03 K/uL (1.2-3.4); Lymphocytes % (auto) 8.8 %; Mean Corpuscular Hemoglobin 29.6 pg (25.0-34.0); Mean Corpuscular Hgb Conc 32.3 g/dL (32.0-36.0); Mean Corpuscular Volume 91.6 fL (80.0-100.0); Mean Platelet Volume 9.2 fL (9.4-12.4); Monocytes # (auto) 1.21 K/uL (0.11-0.59); Monocytes % (auto) 10.4 %; Neutrophils # (auto) 8.94 K/uL (1.40-6.50); Neutrophils % (auto) 76.5 %; Platelet Count 382 K/uL (130-400); RDW Coefficient of Variation 13.3 % (11.5-14.5); RDW Standard Deviation 45.2 fL (36.4-46.3); Red Blood Count 4.06 M/uL (4.20-5.40); White Blood Count 11.68 K/ul (4.8-10.8)
[2022-12-10] MEDS ORDERED: LORazepam 2 MG/1 ML VIAL IV STA ×2 (12:35→15:40)
[2022-12-10 12:59] LABS: Albumin Level 3.8 gm/dl (3.4-5.0); Bilirubin,Total 0.5 mg/dl (0.2-1.0); Magnesium 1.9 mg/dl (1.7-2.4); Potassium 4.1 mmol/L (3.5-5.1)
[2022-12-10 13:05] LABS: Albumin Globulin Ratio 1.2 (0.9-2); BUN Creatinine Ratio 15.9 (10-20); Creatinine Clr Calc Pharmacy 48.3 ml/min; Est GFR (African American) 96.6 ml/min; Est GFR (Non-African American) 83.4 ml/min; Globulin 3.2 gm/dl (2.5-4.0)
[2022-12-10 13:28] LABS: Base Excess ABG 10.8 mEq/L (-9-1.8); HCO3 ABG 38 mmol/L (19-24); Oxygen Saturation ABG 99.7 % (90-95); PCO2 ABG 58 mmHg (35-46); PO2 ABG 131 mmHg (80-95); pH ABG 7.42 (7.35-7.45)
[2022-12-10] MEDS ORDERED: OPTIRAY 350 100ml IV ONE (13:57)
--- NOTE | 2022-12-10 14:15 | CT Scan Report ---
CT SCAN OF THE ABDOMEN AND PELVIS WITH IV CONTRAST CLINICAL HISTORY: Left lower quadrant abdominal pain. COMPARISON STUDY: Abdominal CT dated 03/16/2022. TECHNIQUE: Following the IV administration of 91 cc of Optiray 350, CT scan of the abdomen and pelvi s is performed from the lung bases to the proximal femora. Images are reviewed in the axial, sagittal , and coronal planes. IV contrast was administered without complication. A dose lowering technique wa s utilized adhering to the principles of ALARA. The examination is significantly degraded by motion a rtifact. CT DOSE: 229.29 mGy.cm FINDINGS: Lung bases: The heart is enlarged and without pericardial effusion. The coronary arteries are densely calcified. Emphysematous change is noted at the lung bases. There is bibasilar scarring/atelectasis. No airspace consolidation or pleural effusion is identified. Mucous plugging is noted in the right l ower lobe. Liver: The contrast-enhanced liver is normal in size, contour, and attenuation. There is no intrahepa tic biliary ductal dilatation. The hepatic veins and portal veins are patent. Gallbladder: Unremarkable. Spleen: Normal in size and attenuation. Pancreas: Unremarkable. Adrenal glands: Unremarkable. Kidneys: Evaluation of the kidneys is compromised by motion artifact. The contrast enhanced kidneys d emonstrate mild cortical atrophy and are without hydronephrosis. The kidneys enhance symmetrically. A 2 cm cyst is again seen in the right lower pole. Abdominal vasculature: The abdominal aorta is normal in course and caliber noting advanced atheroscle rotic calcification. A right iliac artery stent is patent. Bowel: There is mild to moderate colonic fecal retention. No bowel obstruction is seen. The cecum is located in the pelvis. The appendix is not identified and reported surgically absent. Peritoneum: There is no intraperitoneal free air or abdominal ascites. Lymphadenopathy: None. Pelvic viscera: The bladder wall appears thickened with mucosal hyperemia. The uterus is surgically a bsent. No adnexal lesion is seen. There are bilateral fat-containing groin hernias. Skeletal structures: The skeletal structures are osteopenic. There are chronic compression injuries o f T12 and L1. Lumbosacral spondylosis and scoliosis are observed. No lytic or blastic lesions are see n. IMPRESSION: 1. Significantly motion compromised examination. 2. Findings suggest cystitis. Correlate with clinical findings and urinalysis. 3. Cardiomegaly and emphysema. 4. Mild to moderate colonic fecal retention. 5. Additional findings as above. ACT 112: Negative or not required by law. Electronically signed by: Anibal Elder M.D. 12/10/2022 2:13 PM
[2022-12-10 14:31] LABS: Allen Test Pos (Pos)
[2022-12-10] MEDS ORDERED: ALBUT/IPRATROP 3MG/0.5MG NEB 3 ML VIAL NEB STA (14:41)
[2022-12-10 15:50] LABS: Appearance Urine Clear (Clear); Bacteria Urine Automated Negative (Negative); Bilirubin Urine Negative (Negative); Blood Urine Negative (Negative); Color Urine Yellow; Epithelial Cell Urine Auto 0-5 /lpf (0-5); Glucose Urine UA Negative (Negative); Ketones Urine Negative (Negative); Leukocyte Esterase Urine Negative (Negative); Nitrite Urine Negative (Negative); Protein Urine Trace (Negative); RBC Urine Automated 0-4 /hpf (0-4); Specific Gravity Urine > 1.045 (1.000-1.030); Urobilinogen Urine Negative (Negative); WBC Urine Automated 0 /hpf (0-5)
[2022-12-10] MEDS ORDERED: ACETAMINOPHEN 1,000 MG/100 ML VIAL IV STA (15:54)
--- NOTE | 2022-12-10 16:12 | XRay Report ---
XR chest 1V portable CLINICAL HISTORY: sob TECHNIQUE: Single frontal radiograph of the chest was obtained. Comparison: Comparison is made to chest radiograph 10/24/[address] abdomen pelvis 12/10/2022 FINDINGS: No lines and tubes are seen. Calcified aortic knob is seen. 2. Edematous changes are seen. Apparent airspace opacity in the right lower lung may represent superp osition of soft tissues. No evidence of pleural effusion or pneumothorax. IMPRESSION: Apparent airspace opacity in the right lower lung is favored to represent superposition of soft tissu es as no airspace opacity was seen corresponding CT abdomen pelvis performed same day. If clinical co ncern remains, a lateral radiograph could be performed. ACT 112: Negative or not required by law. Electronically signed by: Ritesh Izquierdo M.D. 12/10/2022 4:11 PM
--- NOTE | 2022-12-10 16:36 | History & Physical Report ---
Date of Service December 10, 2022 Assessment & Plan (1) Acute encephalopathy: Plan: Acute encephalopathy Unclear etiology Did worsen after receiving lorazepam for CT during ER evaluation. Patient has a history of medication induced encephalopathy AB.4 2/58/131/38 suggestive of chronic compensated hypercapnia without significant acute respiratory acidosis. Hyperoxygenated, oxygen decreased and titrated to 88-94% goal CThead pending UA is uninfected appearing, CT with some concern for cystitis. Follow culture. Trend CBC, follow fever curve CXR: Apparent airspace opacity in the right lower lung is favored to represent superposition of soft tissues as no airspace opacity was seen corresponding CT abdomen pelvis performed same day. If clinical concern remains, a lateral radiograph could be performed. Procalcitonin pending, We will treat for possible acute COPD exacerbation as noted below Patient did have clonazepam stopped on admission to [facility] 10/29/2022. She improved with this and BiPAP compliance (2) Acute exacerbation of chronic obstructive pulmonary disease (COPD): Plan: Patient reports increased cough, increased sputum volume, and increased thickness of white-colored sputum in the last week Wheezing initially in ER, improved with trace residual wheezing following hospital assessment after a DuoNeb We will treat with doxycycline 100 mg twice daily x5 days Steroids deferred due to minimal wheezing on exam. Prednisone continued (3) Abdominal pain: Plan: Patient with mild left lower quadrant/left suprapubic pain which has not worsened on palpation and is without rebound Unclear etiology CT suggestive of possible cystitis, although UA appears noninfected. No other abnormality noted on contrasted study We will treat above and follow clinically (4) CAD (coronary artery disease): Plan: Mild coronary disease on last evaluation Patient denies chest pressure/chest pain/orthopnea/leg swelling Continue Plavix (5) COPD (chronic obstructive pulmonary disease): Plan: As noted (6) Leg pain, left: Plan: Denies pain on admitting exam (7) HTN (hypertension): Plan: Continue home antihypertensives (8) TIA (transient ischemic attack): Plan: Without CVA per patient. CThead pending given AMS. No focal neurologic deficits or facial asymmetry on exam Continue Plavix History of Present Illness Primary Care Provider: [facility] Ana is a 77-year-old female with past medical history of severe COPD with 4 L baseline oxygen requirement, chronic right lower extremity, right lower abdominal pain with unclear etiology, failure to thrive, chronic diarrhea, hyponatremia, peripheral artery disease, and metabolic encephalopathy suspected due to medication induced CO2 narcosis. Patient presented with an episode of right lower abdominal pain, CT of the abdomen and pelvis suspicious for cystitis/UTI, otherwise did not show abnormality on contrasted study. Patient did receive Ativan due to anxiety and agitation, subsequently with significant confusion. By report and discussion with [facility] patient is normally alert, well oriented, with normal thought process. At bedside assessment she is impulsive, answer some quick questions appropriately, but appears restless and tangential while being oriented only to name. Due to acute encephalopathy and unclear cause of a leukocytosis she has been recommended for admission. At bedside Ana reports she does have some left lower abdominal pain which has not worsened by palpation and which is tolerable to her. Denies fever, chills, sweats, dysuria. She does report that her cough has been increased in the last week and she has had more sputum production with white coloring. She has not had fever/chills/sweats. No chest pain or chest pressure. No headache. No photo or phono sensitivity. Other than the left lower pain as noted she denies other abdominal pain. Moving all extremities equally. Denies dysuria Medical History: Reviewed Medications: Reviewed Surgical History: Reviewed Allergies: Reviewed Social History: Reviewed, former smoker Code Status: Full code Allergies Allergy/AdvReac Type Severity Reaction Status Date / Time metoclopramide Allergy Severe "lungs Verified 12/10/22 16:01 collapsed" cortisone Allergy Intermediate swelling Verified 12/10/22 16:01 salicylates Allergy Intermediate caused Verified 12/10/22 16:01 bleeding, can take EC aspirin Corticosteroids AdvReac Intermediate swelling Verified 12/10/22 16:01 (Glucocorticoids) Home Medications Medication Instructions Recorded Confirmed Type clopidogrel 75 mg tablet (Plavix) 75 mg PO QAM 08/15/19 12/10/22 History cyanocobalamin (vitamin B-12) 500 500 mcg sublingual QAM 08/15/19 12/10/22 History mcg sublingual tablet escitalopram oxalate 5 mg tablet 5 mg PO QAM 08/15/19 12/10/22 History (Lexapro) ferrous sulfate 325 mg (65 mg 325 mg PO DAILY 08/15/19 12/10/22 History iron) tablet arformoterol 15 mcg/2 mL solution 15 mcg inhalation BID17 12/02/19 12/10/22 History for nebulization (Brovana) famotidine 20 mg tablet (Pepcid) 20 mg PO BID 12/02/19 12/10/22 History ipratropium bromide 17 2 puff inhalation Q4H PRN asthma 12/02/19 12/10/22 History mcg/actuation HFA aerosol inhaler (Atrovent HFA) sucralfate 1 gram tablet (Carafate) 1 g PO BID 12/02/19 12/10/22 History pantoprazole 40 mg tablet,delayed 40 mg PO DAILY 12/04/19 12/10/22 History release (Protonix) diltiazem HCl 60 mg 60 mg PO QAM 02/17/22 12/10/22 History capsule,extended release 12 hr ipratropium 0.5 mg-albuterol 3 mg 3 ml inhalation Q4H PRN Shortness 04/27/22 12/10/22 History (2.5 mg base)/3 mL nebulization Of Breath Or Wheezing soln protein supplement 1 ea PO QPM 04/27/22 12/10/22 History rosuvastatin 10 mg tablet 20 mg PO HS 04/27/22 12/10/22 History bisacodyl 10 mg rectal suppository 10 mg AR DAILY PRN Constipation 06/19/22 History (Dulcolax (bisacodyl)) colestipol 1 gram tablet 1 g PO TID 06/19/22 12/10/22 History magnesium hydroxide 400 mg/5 mL 30 ml PO HS PRN Constipation 06/19/22 12/10/22 History oral suspension (Milk of Magnesia) Lactobacillus acidophilus 1 tab PO BID 10/22/22 12/10/22 History Saccharomyces boulardii 250 mg 500 mg PO BID 10/22/22 12/10/22 History capsule acetaminophen 325 mg tablet 650 mg PO Q6 PRN pain 1-4/FEVER 10/22/22 12/10/22 History (Tylenol) >100 albuterol sulfate 90 mcg/actuation 2 puff inhalation Q12 PRN Wheezing 10/22/22 12/10/22 History aerosol inhaler guaifenesin 600 mg tablet, 600 mg PO Q12 10/22/22 12/10/22 History extended release 12 hr mometasone 50 mcg/actuation nasal 1 spray intranasal DAILY 10/22/22 12/10/22 History spray lidocaine 4 % topical patch 1 patch topical DAILY 10/23/22 12/10/22 History buspirone 15 mg tablet 7.5 mg PO TID 12/10/22 12/10/22 History clonazepam 0.5 mg tablet 0.5 mg PO TID 12/10/22 12/10/22 History diclofenac sodium 1 % topical gel 4 g EXT Q4H 12/10/22 12/10/22 History (Voltaren Arthritis Pain) gabapentin 400 mg capsule 400 mg PO TID 12/10/22 12/10/22 History ipratropium 0.5 mg-albuterol 3 mg 3 ml inhalation QID 12/10/22 12/10/22 History (2.5 mg base)/3 mL nebulization soln ondansetron HCl 4 mg tablet 4 mg PO Q6H PRN NAUSEA/VOMITING 12/10/22 12/10/22 History prednisone 10 mg tablet 15 mg PO DAILY 12/10/22 12/10/22 History tramadol 50 mg tablet 50 mg PO Q12H PRN Pain 12/10/22 12/10/22 History Past Med/Surg History Medical History Anxiety Arthritis Asymptomatic bilateral carotid artery stenosis "s/p bilateral carotid endarterectomy" CAD (coronary artery disease) F/U DR Angélica LEONARDO Chronic obstructive pulmonary disease OXYGEN 3-4 L/MIN CONTINUOUSLY Diarrhea Difficulty swallowing GERD (gastroesophageal reflux disease) History of anemia History of esophageal dilatation History of esophageal stricture History of GI bleed Hyperlipidemia Hypertension senior living resident resident of [facility] Osteoporosis PVD (peripheral vascular disease) SOB (shortness of breath) on exertion TIA (transient ischemic attack) Surgical History H/O carotid endarterectomy R/L H/O hemorrhoidectomy H/O knee surgery H/O vascular surgery RIGHT ILIAC ARTERY STENT PLACEMENT History of appendectomy History of cardiac cath NO STENTS History of cataract surgery R/L History of colonoscopy History of esophagogastroduodenoscopy (EGD) Family History Other No family history of adverse response to anesthesia Social History Smoking Status: Former smoker Age Started Using Tobacco: 20; packs per day: 2; Cigarettes Per Day: 5-10 CIG a day ADVISED; Hx Alcohol Use: Yes Alcohol type: beer Alcohol type Comment: In a 2009 note - she drank 12 shots of peppermint schnapps per day Hx Substance Use: No Preferred Language: Mohawk Communication Ability: Effective Trucker Hand Required: No Beliefs That Will Affect Care: None marital status: / Current Living Situation: [facility] Current Living Situation Comment: [facility] How many Children do You have: 1 Feels Safe at Home: Yes Assistive Devices: Oxygen - Continuous, Walker and Wheelchair Review of Systems Review of Systems: All systems reviewed & are unremarkable except as noted in HPI & below Physical Exam Physical Exam: General: Oriented to name. NAD. Cooperative. Tangential, appears restless. Vision/Hearing grossly intact. Pupils equal and reactive to light HEENT: Atraumatic, normocephalic. Pulm: Seen shortly after receiving a breathing treatment. Prolonged expiration, faint end expiratory wheeze. Otherwise lungs clear. On 4 L of oxygen. Cardiac: RRR, -mrg. Radial pulses intact and symmetrical. Abdominal: Nontender, nondistended, soft. BS present. Extremities: Warm, dry. Moves all extremities equally. 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 Sensation intact to soft touch in hands and feet without asymmetry. Results & Data Results & Data ([facility]) Vital Signs (Past 12 Hours) Vital Signs Temp Pulse Pulse Resp BP BP Pulse Ox 12/10/22 15:13 116 H 27 H 160/78 H 94 12/10/22 14:09 116 H 26 H 146/96 H 92 12/10/22 09:36 116 H 12/10/22 09:11 36.6 C 124 H 20 147/76 H 97 O2 Del Method O2 Flow Rate 12/10/22 15:13 Nasal Cannula 4 12/10/22 14:09 Nasal Cannula 6 12/10/22 09:36 12/10/22 09:11 Nasal Cannula 4 PG Care Time/CCT Total # of Minutes Spent Total Time Spent with Patient: Total time spent is greater than 50% in coordination of care (as documented) at patient's floor/unit and/or counseling patient: Coding Level of Care Code 03255 INT INP/OBS CARE 2/MIN Diagnoses Acute encephalopathy G93.40 Acute exacerbation of chronic obstructive pulmonary disease (COPD) J44.1 Abdominal pain R10.9 CAD (coronary artery disease) I25.10 COPD (chronic obstructive pulmonary disease) J44.9 Leg pain, left M79.605 HTN (hypertension) I10 TIA (transient ischemic attack) G45.9
--- NOTE | 2022-12-10 17:14 | CT Scan Report ---
CT head/brain wo con CLINICAL HISTORY: ams Technique: Contiguous axial CT images of the head were acquired from the base of the skull to the lizandro breonna without intravenous contrast administration. Images were viewed in brain, subdural and [facility]. Automated dose lowering techniques and/or adjustment according to patient size were utilized for this exam. Comparison: Comparison is made to CT head 10/23/2022 Findings: Areas of decreased attenuation are present in the periventricular and subcortical white matter bilate rally consistent with small vessel ischemic disease. Generalized cerebral atrophy with commensurate e nlargement of the ventricles, sulci, and cisterns is also present. There is no acute intracranial hem orrhage or evidence of acute territorial infarction. No shift of the midline structures, mass effect, or extra-axial abnormalities are shown. Atherosclerotic calcifications are present in the intracran ial segments of the internal carotid arteries. Possible old infarct is seen in the left internal caps ule. Imaged portions of the paranasal sinuses and mastoid air cells are clear. The orbits appear normal. There are no acute fractures of the calvaria or scalp swelling. Impression: Expected age-related changes and possible prior infarcts without evidence of acute abnormality. ACT 112: Negative or not required by law. Electronically signed by: Ritesh Izquierdo M.D. 12/10/2022 5:13 PM
[2022-12-10] MEDS ORDERED: MAGNESIUM HYDROXIDE SUSP 30 ML UDC PO PRN (20:16)
[2022-12-10] MEDS ORDERED: traMADol HCL 50 MG TABLET PO PRN (20:16)
[2022-12-10] MEDS ORDERED: IPRATROPIUM BROMIDE HFA INHALER INH PRN (20:16)
[2022-12-10] MEDS ORDERED: bisacodyL 10 MG SUPP PR PRN (20:16)
[2022-12-10] MEDS ORDERED: ALBUTEROL HFA 8 GM INHALER INH PRN (20:16)
[2022-12-10] MEDS ORDERED: SACCHAROMYCES BOULARDII 250 MG CAP PO SCH (21:00)
[2022-12-10] MEDS: SODIUM CHLORIDE 0.9% 1000ML 1,000 ML IV SCH ×2 (21:01→21:39)
[2022-12-10 21:11] LABS: HCO3 VBG 39 mmol/L; Oxygen Saturation VBG 94.7 %; PCO2 VBG 64 mmHg (38-50); PO2 VBG 70 mmHg; pH VBG 7.39 (7.36-7.41)
[2022-12-10] MEDS: DICLOFENAC SOD 1% GEL 100 GM TUBE EXT SCH ×2 (21:40→23:35)
[2022-12-10] MEDS: guaiFENesin 600 MG TABCR PO SCH (21:41)
[2022-12-10] MEDS: COLESTIPOL HCL 1 GM TAB PO SCH (21:41)
[2022-12-10] MEDS: busPIRone 7.5 MG TAB PO SCH (21:41)
[2022-12-10] MEDS: FAMOTIDINE 20 MG TAB PO SCH (21:41)
[2022-12-10] MEDS: ALBUT/IPRATROP 3MG/0.5MG NEB 3 ML VIAL INH SCH ×2 (22:28)
[2022-12-10] MEDS: SUCRALFATE 1 GM TAB PO SCH (23:02)
[2022-12-10] MEDS: ROSUVASTATIN CALCIUM 20 MG TAB PO SCH (23:02)
[2022-12-11] MEDS: DICLOFENAC SOD 1% GEL 100 GM TUBE EXT SCH ×5 (02:46→19:52)
[2022-12-11] MEDS ORDERED: PHENAZOPYRIDINE HCL 100 MG TAB PO PRN (03:04)
[2022-12-11] MEDS: SODIUM CHLORIDE 0.9% 1000ML 1,000 ML IV SCH ×3 (06:17→16:04)
[2022-12-11] MEDS: ALBUT/IPRATROP 3MG/0.5MG NEB 3 ML VIAL INH SCH ×3 (07:08→20:01)
[2022-12-11] MEDS: FLUTICASONE PROPIONATE NA SPR 16 GM BTL NAE SCH (08:31)
[2022-12-11] MEDS: predniSONE 5 MG TAB PO SCH (08:31)
[2022-12-11] MEDS: COLESTIPOL HCL 1 GM TAB PO SCH ×3 (08:31→20:22)
[2022-12-11] MEDS: guaiFENesin 600 MG TABCR PO SCH ×2 (08:31→20:22)
[2022-12-11] MEDS: FAMOTIDINE 20 MG TAB PO SCH ×2 (08:31→20:22)
[2022-12-11] MEDS: ADVANCED PROBIOTIC 1250 MG CAPSULE PO SCH ×2 (08:31→20:21)
[2022-12-11] MEDS: PANTOprazole 40 MG TAB PO SCH (08:31)
[2022-12-11] MEDS: SUCRALFATE 1 GM TAB PO SCH ×2 (08:31→20:21)
[2022-12-11] MEDS: FERROUS SULFATE 325 MG TAB PO SCH (08:32)
[2022-12-11] MEDS: ESCITALOPRAM OXALATE 10 MG TAB PO SCH (08:32)
[2022-12-11] MEDS: CYANOCOBALAMIN (B-12) 500 MCG TABLET PO SCH (08:32)
[2022-12-11] MEDS: CLOPIDOGREL BISULFATE 75 MG TAB PO SCH (08:32)
[2022-12-11] MEDS: busPIRone 7.5 MG TAB PO SCH ×3 (08:32→20:21)
[2022-12-11] MEDS: LIDOCAINE 5% 1 PATCH TD SCH (08:33)
[2022-12-11] MEDS ORDERED: Nursing to Pharmacy Communication SCH (09:00)
[2022-12-11] MEDS ORDERED: FORMOTEROL 20 MCG/2 ML VIAL INH SCH (09:00)
[2022-12-11 09:58] LABS: Base Excess VBG 5.8 mEq/L; HCO3 VBG 33 mmol/L; Oxygen Saturation VBG < 60.0 %; PCO2 VBG 55 mmHg (38-50); PO2 VBG 32 mmHg; pH VBG 7.38 (7.36-7.41)
[2022-12-11 10:08] LABS: Basophils # (auto) 0.06 K/uL (0-0.2); Basophils % (auto) 0.6 %; Eosinophils # (auto) 0.22 K/uL (0-0.50); Eosinophils % (auto) 2.3 %; Hematocrit (blood only) 34.8 % (37.0-47.0); Hemoglobin 11.2 g/dl (12.0-16.0); Immature Granulocytes # (auto) 0.08 K/uL (0.01-0.20); Immature Granulocytes % (auto) 0.8 %; Lymphocytes % (auto) 4.1 %; Mean Corpuscular Hemoglobin 28.9 pg (25.0-34.0); Mean Corpuscular Hgb Conc 32.2 g/dL (32.0-36.0); Mean Corpuscular Volume 89.9 fL (80.0-100.0); Mean Platelet Volume 9.2 fL (9.4-12.4); Monocytes # (auto) 0.48 K/uL (0.11-0.59); Neutrophils # (auto) 8.42 K/uL (1.40-6.50); Neutrophils % (auto) 87.2 %; Platelet Count 319 K/uL (130-400); RDW Coefficient of Variation 13.2 % (11.5-14.5); RDW Standard Deviation 43.4 fL (36.4-46.3); Red Blood Count 3.87 M/uL (4.20-5.40); White Blood Count 9.66 K/ul (4.8-10.8)
[2022-12-11 10:31] LABS: BUN Creatinine Ratio 16.7 (10-20); Calcium 8.2 mg/dl (8.5-10.1); Creatinine Clr Calc Pharmacy 61.7 ml/min; Est GFR (African American) 104.8 ml/min; Est GFR (Non-African American) 90.4 ml/min; Potassium 3.4 mmol/L (3.5-5.1)
[2022-12-11] MEDS: ACETAMINOPHEN 325 MG TAB PO PRN ×2 (10:33→20:19)
[2022-12-11] MEDS: FORMOTEROL 20 MCG/2 ML VIAL INH SCH (20:01)
[2022-12-11] MEDS: ROSUVASTATIN CALCIUM 20 MG TAB PO SCH (20:22)
[2022-12-11] MEDS: PROSOURCE NO CARB 30 ML/PKT PO SCH (20:23)
[2022-12-11] MEDS: ONDANSETRON 4 MG OD TAB PO PRN (20:35)
[2022-12-11 21:09] LABS: Base Excess VBG 5.5 mEq/L; HCO3 VBG 32 mmol/L; Oxygen Saturation VBG < 60.0 %; PCO2 VBG 51 mmHg (38-50); PO2 VBG 33 mmHg
[2022-12-12] MEDS: DICLOFENAC SOD 1% GEL 100 GM TUBE EXT SCH ×7 (00:30→23:16)
[2022-12-12] MEDS: SODIUM CHLORIDE 0.9% 1000ML 1,000 ML IV SCH ×4 (00:33→22:59)
--- NOTE | 2022-12-12 00:43 | Hospitalist Progress Note ---
Date of Service December 11, 2022 Assessment & Plan (1) Acute encephalopathy: Plan: Acute encephalopathy Unclear etiology Did worsen after receiving lorazepam for CT during ER evaluation. Patient has a history of medication induced encephalopathy AB.4 2/58/131/38 suggestive of chronic compensated hypercapnia without significant acute respiratory acidosis. Hyperoxygenated, oxygen decreased and titrated to 88-94% goal CThead pending UA is uninfected appearing, CT with some concern for cystitis. Follow culture. Trend CBC, follow fever curve CXR: Apparent airspace opacity in the right lower lung is favored to represent superposition of soft tissues as no airspace opacity was seen corresponding CT abdomen pelvis performed same day. If clinical concern remains, a lateral radiograph could be performed. Procalcitonin pending, We will treat for possible acute COPD exacerbation as noted below Patient did have clonazepam stopped on admission to [facility] 10/29/2022. She improved with this and BiPAP compliance (2) Acute exacerbation of chronic obstructive pulmonary disease (COPD): Plan: Patient reports increased cough, increased sputum volume, and increased thickness of white-colored sputum in the last week Wheezing initially in ER, improved with trace residual wheezing following hospital assessment after a DuoNeb We will treat with doxycycline 100 mg twice daily x5 days Steroids deferred due to minimal wheezing on exam. Prednisone continued (3) Abdominal pain: Plan: Patient with mild left lower quadrant/left suprapubic pain which has not worsened on palpation and is without rebound Unclear etiology CT suggestive of possible cystitis, although UA appears noninfected. No other abnormality noted on contrasted study We will treat above and follow clinically (4) CAD (coronary artery disease): Plan: Mild coronary disease on last evaluation Patient denies chest pressure/chest pain/orthopnea/leg swelling Continue Plavix (5) COPD (chronic obstructive pulmonary disease): Plan: As noted (6) Leg pain, left: Plan: Denies pain on admitting exam (7) HTN (hypertension): Plan: Continue home antihypertensives (8) TIA (transient ischemic attack): Plan: Without CVA per patient. CThead pending given AMS. No focal neurologic deficits or facial asymmetry on exam Continue Plavix Admission and Anticipated Discharge Date Admission Date: December 10, 2022 Subjective Patient has intermittent episodes of confusion Otherwise no chest pain or shortness of breath noted Physical Exam Physical Exam: Head and ENT no thyroid enlargement trachea midline Cardiovascular S1-S2 are normal no S3 Lungs bilateral air entry fair no wheezing Abdomen soft nondistended positive bowel sounds no rebound tenderness Extremity shows trace edema Neurologically no focal deficits Skin shows no rash no cyanosis Results & Data Results & [facility] ([facility]) Vital Signs (Past 12 Hours) Vital Signs Temp Pulse Pulse Resp BP Pulse Ox O2 Del Method 12/11/22 20:16 Nasal Cannula 12/11/22 20:02 99 H 18 96 Nasal Cannula 12/11/22 19:19 36.8 C 99 H 20 157/88 H 96 Nasal Cannula 12/11/22 17:40 36.8 C 98 H 20 131/65 94 Nasal Cannula 12/11/22 15:06 94 H 12/11/22 15:02 78 19 94 Nasal Cannula O2 Flow Rate 12/11/22 20:16 4 12/11/22 20:02 4 12/11/22 19:19 3.5 12/11/22 17:40 3.5 12/11/22 15:06 12/11/22 15:02 4 Laboratory Results Short CBC 12/11/22 Range/Units 09:13 WBC 9.66 (4.8-10.8) K/ul Hgb 11.2 L (12.0-16.0) g/dl Hct 34.8 L (37.0-47.0) % Plt Count 319 (130-400) K/uL BMP 12/11/22 09:13 Sodium 132 L Potassium 3.4 L Chloride 94 L Carbon Dioxide 32 BUN 9 Creatinine 0.54 L Glucose 192 H Calcium 8.2 L PG Care Time/CCT Total # of Minutes Spent Total Time Spent with Patient: Total time spent is greater than 50% in coordination of care (as documented) at patient's floor/unit and/or counseling patient: Coding Level of Care Code 58246 SUB INP/OBS CARE 2/35MIN Diagnoses Acute encephalopathy G93.40 Acute exacerbation of chronic obstructive pulmonary disease (COPD) J44.1 Abdominal pain R10.9 CAD (coronary artery disease) I25.10 COPD (chronic obstructive pulmonary disease) J44.9 Leg pain, left M79.605 HTN (hypertension) I10 TIA (transient ischemic attack) G45.9
[2022-12-12] MEDS: ALBUT/IPRATROP 3MG/0.5MG NEB 3 ML VIAL INH PRN (01:36)
[2022-12-12] MEDS: ACETAMINOPHEN 325 MG TAB PO PRN ×3 (04:02→20:59)
[2022-12-12] MEDS: MELATONIN 3 MG TAB PO PRN ×2 (04:02→20:59)
[2022-12-12] MEDS ORDERED: PROPRANOLOL HCL 10 MG TAB PO STA (05:11)
[2022-12-12] MEDS: FORMOTEROL 20 MCG/2 ML VIAL INH SCH ×2 (07:06→19:17)
[2022-12-12] MEDS: ALBUT/IPRATROP 3MG/0.5MG NEB 3 ML VIAL INH SCH ×4 (07:06→19:17)
[2022-12-12 07:46] LABS: Hematocrit (blood only) 32.5 % (37.0-47.0); Hemoglobin 10.6 g/dl (12.0-16.0); Mean Corpuscular Hemoglobin 28.9 pg (25.0-34.0); Mean Corpuscular Hgb Conc 32.6 g/dL (32.0-36.0); Mean Corpuscular Volume 88.6 fL (80.0-100.0); Mean Platelet Volume 9.4 fL (9.4-12.4); Platelet Count 351 K/uL (130-400); RDW Standard Deviation 42.4 fL (36.4-46.3); Red Blood Count 3.67 M/uL (4.20-5.40); White Blood Count 8.94 K/ul (4.8-10.8)
[2022-12-12 08:06] LABS: Calcium 7.9 mg/dl (8.5-10.1); Creatinine Clr Calc Pharmacy 72.4 ml/min; Est GFR (African American) 110.4 ml/min; Est GFR (Non-African American) 95.3 ml/min; Potassium 3.4 mmol/L (3.5-5.1)
[2022-12-12] MEDS: CYANOCOBALAMIN (B-12) 500 MCG TABLET PO SCH (09:29)
[2022-12-12] MEDS: CLOPIDOGREL BISULFATE 75 MG TAB PO SCH (09:29)
[2022-12-12] MEDS: ESCITALOPRAM OXALATE 10 MG TAB PO SCH (09:30)
[2022-12-12] MEDS: FERROUS SULFATE 325 MG TAB PO SCH (09:31)
[2022-12-12] MEDS: PANTOprazole 40 MG TAB PO SCH (09:31)
[2022-12-12] MEDS: predniSONE 5 MG TAB PO SCH (09:32)
[2022-12-12] MEDS: FAMOTIDINE 20 MG TAB PO SCH ×2 (09:33→20:03)
[2022-12-12] MEDS: SUCRALFATE 1 GM TAB PO SCH ×2 (09:33→20:03)
[2022-12-12] MEDS: busPIRone 7.5 MG TAB PO SCH ×3 (09:33→20:02)
[2022-12-12] MEDS: guaiFENesin 600 MG TABCR PO SCH ×2 (09:33→20:03)
[2022-12-12] MEDS: COLESTIPOL HCL 1 GM TAB PO SCH ×3 (09:33→20:02)
[2022-12-12] MEDS: ADVANCED PROBIOTIC 1250 MG CAPSULE PO SCH ×2 (09:33→20:02)
[2022-12-12] MEDS: FLUTICASONE PROPIONATE NA SPR 16 GM BTL NAE SCH (09:34)
[2022-12-12] MEDS: LIDOCAINE 5% 1 PATCH TD SCH (09:34)
--- NOTE | 2022-12-12 18:43 | Hospitalist Progress Note ---
Date of Service December 12, 2022 Assessment & Plan (1) Acute encephalopathy: Plan: Acute encephalopathy Unclear etiology Did worsen after receiving lorazepam for CT during ER evaluation. Patient has a history of medication induced encephalopathy AB.4 2/58/131/38 suggestive of chronic compensated hypercapnia without significant acute respiratory acidosis. Hyperoxygenated, oxygen decreased and titrated to 88-94% goal CThead pending UA is uninfected appearing, CT with some concern for cystitis. Follow culture. Trend CBC, follow fever curve CXR: Apparent airspace opacity in the right lower lung is favored to represent superposition of soft tissues as no airspace opacity was seen corresponding CT abdomen pelvis performed same day. If clinical concern remains, a lateral radiograph could be performed. Procalcitonin pending, We will treat for possible acute COPD exacerbation as noted below Patient did have clonazepam stopped on admission to [facility] 10/29/2022. She improved with this and BiPAP compliance 10/11-acute encephalopathy improving progressively Had extensive discussion with patient and her daughter who wants patient to be evaluated for her ongoing right leg pain radiating from her hip CT of the lumbar area did reveal chronic changes Patient's daughter wants patient being evaluated by neurology as well as orthopedics with regard to the lumbar radiculopathy prior to being DC'd (2) Acute exacerbation of chronic obstructive pulmonary disease (COPD): Plan: Patient reports increased cough, increased sputum volume, and increased thick ness of white-colored sputum in the last week Wheezing initially in ER, improved with trace residual wheezing following hospital assessment after a DuoNeb We will treat with doxycycline 100 mg twice daily x5 days Steroids deferred due to minimal wheezing on exam. Prednisone continued (3) Leg pain, right: Plan: Patient continues to have severe radiculopathy We will obtain neuro input regarding assistance with this after discussion with pts daughter (4) Abdominal pain: Plan: Patient with mild left lower quadrant/left suprapubic pain which has not worsened on palpation and is without rebound Unclear etiology CT suggestive of possible cystitis, although UA appears noninfected. No other abnormality noted on contrasted study We will treat above and follow clinically (5) CAD (coronary artery disease): Plan: Mild coronary disease on last evaluation Patient denies chest pressure/chest pain/orthopnea/leg swelling Continue Plavix (6) COPD (chronic obstructive pulmonary disease): Plan: As noted (7) HTN (hypertension): Plan: Continue home antihypertensives (8) TIA (transient ischemic attack): Plan: Without CVA per patient. CThead pending given AMS. No focal neurologic deficits or facial asymmetry on exam Continue Plavix (9) Leg pain, left: Plan: Admission and Anticipated Discharge Date Admission Date: December 10, 2022 Subjective Patient has intermittent episodes of confusion but this is improving progressively Patient however reports severe right hip and leg pain likely secondary to radiculopathy Physical Exam Physical Exam: Head and ENT no thyroid enlargement trachea midline Cardiovascular S1-S2 are normal no S3 Lungs bilateral air entry fair no wheezing Abdomen soft nondistended positive bowel sounds no rebound tenderness Extremity shows trace edema right hip movement elicits radiating pain in the legs Neurologically no focal deficits Skin shows no rash no cyanosis Results & Data Results & Data ([facility]) Vital Signs (Past 12 Hours) Vital Signs Temp Pulse Pulse Resp BP BP Pulse Ox 12/12/22 15:52 36.8 C 85 20 141/58 H 96 12/12/22 15:12 78 18 96 12/12/22 11:22 36.6 C 99 H 21 155/93 H 95 12/12/22 11:20 99 H 18 97 12/12/22 09:30 12/12/22 07:35 104 H 12/12/22 07:06 101 H 22 92 12/12/22 06:57 36.7 C 100 H 21 185/99 H 94 O2 Del Method O2 Flow Rate 12/12/22 15:52 Nasal Cannula 4 12/12/22 15:12 Nasal Cannula 4 12/12/22 11:22 Nasal Cannula 4 12/12/22 11:20 Nasal Cannula 4 12/12/22 09:30 Nasal Cannula 4 12/12/22 07:35 12/12/22 07:06 Nasal Cannula 4 12/12/22 06:57 Nasal Cannula 4 PG Care Time/CCT Total # of Minutes Spent Total Time Spent with Patient: Total time spent is greater than 50% in coordination of care (as documented) at patient's floor/unit and/or counseling patient: Coding Level of Care Code 12454 SUB INP/OBS CARE 2/35MIN Diagnoses Acute encephalopathy G93.40 Acute exacerbation of chronic obstructive pulmonary disease (COPD) J44.1 Leg pain, right M79.604 Abdominal pain R10.9 CAD (coronary artery disease) I25.10 COPD (chronic obstructive pulmonary disease) J44.9 HTN (hypertension) I10 TIA (transient ischemic attack) G45.9 Leg pain, left M79.605
[2022-12-12] MEDS: PROSOURCE NO CARB 30 ML/PKT PO SCH (20:02)
[2022-12-12] MEDS: ROSUVASTATIN CALCIUM 20 MG TAB PO SCH (20:03)
[2022-12-12] MEDS ORDERED: KETOROLAC TROMETHAMINE 15 MG/ML VIAL IV ONE (21:47)
[2022-12-13] MEDS: ACETAMINOPHEN 325 MG TAB PO PRN ×3 (03:08→20:54)
[2022-12-13] MEDS: DICLOFENAC SOD 1% GEL 100 GM TUBE EXT SCH ×5 (03:09→20:38)
[2022-12-13] MEDS: ALBUT/IPRATROP 3MG/0.5MG NEB 3 ML VIAL INH PRN (03:50)
[2022-12-13] MEDS: FORMOTEROL 20 MCG/2 ML VIAL INH SCH ×2 (07:35→19:06)
[2022-12-13] MEDS: ALBUT/IPRATROP 3MG/0.5MG NEB 3 ML VIAL INH SCH ×4 (07:36→19:07)
[2022-12-13 07:54] LABS: Hemoglobin 11.1 g/dl (12.0-16.0); Mean Corpuscular Hgb Conc 33.6 g/dL (32.0-36.0); Mean Corpuscular Volume 86.2 fL (80.0-100.0); Mean Platelet Volume 9.2 fL (9.4-12.4); Platelet Count 343 K/uL (130-400); RDW Coefficient of Variation 12.8 % (11.5-14.5); RDW Standard Deviation 40.6 fL (36.4-46.3); Red Blood Count 3.83 M/uL (4.20-5.40); White Blood Count 7.46 K/ul (4.8-10.8)
[2022-12-13 08:04] LABS: Calcium 8.3 mg/dl (8.5-10.1); Creatinine Clr Calc Pharmacy 81.2 ml/min; Est GFR (African American) 114.7 ml/min; Potassium 2.9 mmol/L (3.5-5.1)
[2022-12-13] MEDS: SODIUM CHLORIDE 0.9% 1000ML 1,000 ML IV SCH ×2 (09:06→17:03)
[2022-12-13] MEDS: LIDOCAINE 5% 1 PATCH TD SCH (09:11)
[2022-12-13] MEDS: FERROUS SULFATE 325 MG TAB PO SCH (09:11)
[2022-12-13] MEDS: CYANOCOBALAMIN (B-12) 500 MCG TABLET PO SCH (09:11)
[2022-12-13] MEDS: busPIRone 7.5 MG TAB PO SCH ×3 (09:12→20:40)
[2022-12-13] MEDS: predniSONE 5 MG TAB PO SCH (09:13)
[2022-12-13] MEDS: guaiFENesin 600 MG TABCR PO SCH ×2 (09:15→20:39)
[2022-12-13] MEDS: COLESTIPOL HCL 1 GM TAB PO SCH ×3 (09:16→22:07)
[2022-12-13] MEDS: FAMOTIDINE 20 MG TAB PO SCH ×2 (09:17→20:39)
[2022-12-13] MEDS: PANTOprazole 40 MG TAB PO SCH (09:17)
[2022-12-13] MEDS: SUCRALFATE 1 GM TAB PO SCH ×2 (09:17→20:39)
[2022-12-13] MEDS: ESCITALOPRAM OXALATE 10 MG TAB PO SCH (09:17)
[2022-12-13] MEDS: CLOPIDOGREL BISULFATE 75 MG TAB PO SCH (09:18)
[2022-12-13] MEDS: ADVANCED PROBIOTIC 1250 MG CAPSULE PO SCH ×2 (09:18→20:40)
[2022-12-13] MEDS: FLUTICASONE PROPIONATE NA SPR 16 GM BTL NAE SCH (09:19)
--- NOTE | 2022-12-13 09:48 | Neurology Consultation ---
Date of Consultation December 13, 2022 Assessment & Plan (1) Acute on chronic respiratory failure with hypoxia and hypercapnia: Plan NEUROLOGY CONSULTATION Assessment & Plan: Impression: pt with resolved confusion/encephalopathy. agree that likely metabolic encephalopathy in setting of COPD worsening. Pending cystitis work up. Recommendations: -i do not feel there is no further neuro work up needed at this point. continue supporitve care and avoid hypoxia and infection and metabolic disorders. call again if new question. Dr. Brian Bonner MD [facility] Neurology Chief Complaint: confusion History of Present Illness: pt with brief confusion in setting of hypoxia/hypercapnia. pt this morning doing well and no longer confused. speaking well and wanting to go home. chart reviewed. CT head negative. Admission/Initial HPI documentation: Ana is a 77-year-old female with past medical history of severe COPD with 4 L baseline oxygen requirement, chronic right lower extremity, right lower abdominal pain with unclear etiology, failure to thrive, chronic diarrhea, hyponatremia, peripheral artery disease, and metabolic encephalopathy suspected due to medication induced CO2 narcosis. Patient presented with an episode of right lower abdominal pain, CT of the abdomen and pelvis suspicious for cystitis/UTI, otherwise did not show abnormality on contrasted study. Patient did receive Ativan due to anxiety and agitation, subsequently with significant confusion. By report and discussion with [facility] patient is normally alert, well oriented, with normal thought process. At bedside assessment she is impulsive, answer some quick questions appropriately, but appears restless and tangential while being oriented only to name. Due to acute encephalopathy and unclear cause of a leukocytosis she has been recommended for admission. At bedside Ana reports she does have some left lower abdominal pain which has not worsened by palpation and which is tolerable to her. Denies fever, chills, sweats, dysuria. She does report that her cough has been increased in the last week and she has had more sputum production with white coloring. She has not had fever/chills/sweats. No chest pain or chest pressure. No headache. No photo or phono sensitivity. Other than the left lower pain as noted she denies other abdominal pain. Moving all extremities equally. Denies dysuria Past Medical History: See chart Meds: See chart I personally reviewed all of the medications Social & Family History: See chart Review of Systems: Per initial HPI on admission. Physical Exam: GEN: NAD HEENT: Normocephalic Neuro: Mental status:A & O x 3.No dysarthria or aphasia.No neglect. Fluent speech. No apraxia Cranial Nerves:II-XII intact Motor:Normal bulk and tone,5/5 strength x 4 extremities Coordination:Intact Reflexes: down going toes estuardo Sensation: Intact x 4 extremities to touch Chart reviewed I have spent more than 50% educating patient about potential diagnosis and neurological evaluation and coordinating care with patient's treatment team. Total time spent (including chart review and coordination of care): 80 min (this includes chart review). History of Present Illness Attending Physician: Raimundo Chao MD Allergies Allergy/AdvReac Type Severity Reaction Status Date / Time metoclopramide Allergy Severe "lungs Verified 12/10/22 16:01 collapsed" cortisone Allergy Intermediate swelling Verified 12/10/22 16:01 salicylates Allergy Intermediate caused Verified 12/10/22 16:01 bleeding, can take EC aspirin Corticosteroids AdvReac Intermediate swelling Verified 12/10/22 16:01 (Glucocorticoids) Home Medications Medication Instructions Recorded Confirmed Type clopidogrel 75 mg tablet (Plavix) 75 mg PO QAM 08/15/19 12/10/22 History cyanocobalamin (vitamin B-12) 500 500 mcg sublingual QAM 08/15/19 12/10/22 History mcg sublingual tablet escitalopram oxalate 5 mg tablet 5 mg PO QAM 08/15/19 12/10/22 History (Lexapro) ferrous sulfate 325 mg (65 mg 325 mg PO DAILY 08/15/19 12/10/22 History iron) tablet arformoterol 15 mcg/2 mL solution 15 mcg inhalation BID17 12/02/19 12/10/22 History for nebulization (Brovana) famotidine 20 mg tablet (Pepcid) 20 mg PO BID 12/02/19 12/10/22 History ipratropium bromide 17 2 puff inhalation Q4H PRN asthma 12/02/19 12/10/22 History mcg/actuation HFA aerosol inhaler (Atrovent HFA) sucralfate 1 gram tablet (Carafate) 1 g PO BID 12/02/19 12/10/22 History pantoprazole 40 mg tablet,delayed 40 mg PO DAILY 12/04/19 12/10/22 History release (Protonix) diltiazem HCl 60 mg 60 mg PO QAM 02/17/22 12/10/22 History capsule,extended release 12 hr ipratropium 0.5 mg-albuterol 3 mg 3 ml inhalation Q4H PRN Shortness 04/27/22 12/10/22 History (2.5 mg base)/3 mL nebulization Of Breath Or Wheezing soln protein supplement 1 ea PO QPM 04/27/22 12/10/22 History rosuvastatin 10 mg tablet 20 mg PO HS 04/27/22 12/10/22 History bisacodyl 10 mg rectal suppository 10 mg WA DAILY PRN Constipation 06/19/22 12/10/22 History (Dulcolax (bisacodyl)) colestipol 1 gram tablet 1 g PO TID 06/19/22 12/10/22 History magnesium hydroxide 400 mg/5 mL 30 ml PO HS PRN Constipation 06/19/22 12/10/22 History oral suspension (Milk of Magnesia) Lactobacillus acidophilus 1 tab PO BID 10/22/22 12/10/22 History Saccharomyces boulardii 250 mg 500 mg PO BID 10/22/22 12/10/22 History capsule acetaminophen 325 mg tablet 650 mg PO Q6 PRN pain 1-4/FEVER 10/22/22 12/10/22 History (Tylenol) >100 albuterol sulfate 90 mcg/actuation 2 puff inhalation Q12 PRN Wheezing 10/22/22 12/10/22 History aerosol inhaler guaifenesin 600 mg tablet, 600 mg PO Q12 10/22/22 12/10/22 History extended release 12 hr mometasone 50 mcg/actuation nasal 1 spray intranasal DAILY 10/22/22 12/10/22 History spray lidocaine 4 % topical patch 1 patch topical DAILY 10/23/22 12/10/22 History buspirone 15 mg tablet 7.5 mg PO TID 12/10/22 12/10/22 History clonazepam 0.5 mg tablet 0.5 mg PO TID 12/10/22 12/10/22 History diclofenac sodium 1 % topical gel 4 g EXT Q4H 12/10/22 12/10/22 History (Voltaren Arthritis Pain) gabapentin 400 mg capsule 400 mg PO TID 12/10/22 12/10/22 History ipratropium 0.5 mg-albuterol 3 mg 3 ml inhalation QID 12/10/22 12/10/22 History (2.5 mg base)/3 mL nebulization soln ondansetron HCl 4 mg tablet 4 mg PO Q6H PRN NAUSEA/VOMITING 12/10/22 12/10/22 History prednisone 10 mg tablet 15 mg PO DAILY 12/10/22 12/10/22 History tramadol 50 mg tablet 50 mg PO Q12H PRN Pain 12/10/22 12/10/22 History Patient History Medical History Anxiety Arthritis Asymptomatic bilateral carotid artery stenosis "s/p bilateral carotid endarterectomy" CAD (coronary artery disease) F/U DR Angélica LEONARDO Chronic obstructive pulmonary disease OXYGEN 3-4 L/MIN CONTINUOUSLY Diarrhea Difficulty swallowing GERD (gastroesophageal reflux disease) History of anemia History of esophageal dilatation History of esophageal stricture History of GI bleed Hyperlipidemia Hypertension residential resident resident of [facility] Osteoporosis PVD (peripheral vascular disease) SOB (shortness of breath) on exertion TIA (transient ischemic attack) Surgical History H/O carotid endarterectomy R/L H/O hemorrhoidectomy H/O knee surgery H/O vascular surgery RIGHT ILIAC ARTERY STENT PLACEMENT History of appendectomy History of cardiac cath NO STENTS History of cataract surgery R/L History of colonoscopy History of esophagogastroduodenoscopy (EGD) Family History Other No family history of adverse response to anesthesia Social History Smoking Status: Former smoker Age Started Using Tobacco: 20; packs per day: 2; Cigarettes Per Day: 5-10 CIG a day ADVISED; Hx Alcohol Use: No Hx Substance Use: No Preferred Language: Serbian Communication Ability: Effective [employer] Required: No Beliefs That Will Affect Care: None marital status: / Current Living Situation: [place]way Current Living Situation Comment: [facility] How many Children do You have: 1 Feels Safe at Home: Yes Assistive Devices: Oxygen - Continuous, Walker and Wheelchair Results & Data ([facility]) Vital Signs (Past 12 Hours) Vital Signs Temp Pulse Resp BP Pulse Ox O2 Del Method O2 Flow Rate 12/13/22 07:35 37.3 C 100 H 20 168/77 H 97 Nasal Cannula 4 12/13/22 07:37 90 18 96 Nasal Cannula 4 12/13/22 04:00 36.7 C 76 18 152/74 H 92 Nasal Cannula 4 12/13/22 03:50 22 95 Nasal Cannula 4 12/12/22 23:29 36.9 C 82 18 177/70 H 98 Nasal Cannula 4
--- NOTE | 2022-12-13 16:10 | Hospitalist Progress Note ---
Date of Service December 13, 2022 Assessment & Plan (1) Acute encephalopathy: Plan: Acute encephalopathy Unclear etiology Did worsen after receiving lorazepam for CT during ER evaluation. Patient has a history of medication induced encephalopathy AB.4 2/58/131/38 suggestive of chronic compensated hypercapnia without significant acute respiratory acidosis. Hyperoxygenated, oxygen decreased and titrated to 88-94% goal CThead pending UA is uninfected appearing, CT with some concern for cystitis. Follow culture. Trend CBC, follow fever curve CXR: Apparent airspace opacity in the right lower lung is favored to represent superposition of soft tissues as no airspace opacity was seen corresponding CT abdomen pelvis performed same day. If clinical concern remains, a lateral radiograph could be performed. Procalcitonin pending, We will treat for possible acute COPD exacerbation as noted below Patient did have clonazepam stopped on admission to [facility] 10/29/2022. She improved with this and BiPAP compliance 10/11-acute encephalopathy improving progressively Had extensive discussion with patient and her daughter who wants patient to be evaluated for her ongoing right leg pain radiating from her hip CT of the lumbar area did reveal chronic changes Patient's daughter wants patient being evaluated by neurology as well as orthopedics with regard to the lumbar radiculopathy prior to being DC'd 12/13-patient mental status improving Patient however continues to have severe right leg pain along with right hip pain We will obtain CT of the right hip to exclude structural causes Discussed with patient's daughter and she requests neurology and Ortho input as patient has been having progressively worsening right hip pain with Significant radiculopathy. (2) Acute exacerbation of chronic obstructive pulmonary disease (COPD): Plan: Patient reports increased cough, increased sputum volume, and increased thickness of white-colored sputum in the last week Wheezing initially in ER, improved with trace residual wheezing following hospital assessment after a DuoNeb We will treat with doxycycline 100 mg twice daily x5 days Steroids deferred due to minimal wheezing on exam. Prednisone continued (3) Leg pain, right: Plan: Patient continues to have severe radiculopathy We will obtain neuro input regarding assistance with this after discussion with pts daughter (4) Hypokalemia: Plan: 12/13-Patient potassium 2.9 today We will replace potassium recheck levels in a.m. (5) Abdominal pain: Plan: Patient with mild left lower quadrant/left suprapubic pain which has not worsened on palpation and is without rebound Unclear etiology CT suggestive of possible cystitis, although UA appears noninfected. No other abnormality noted on contrasted study We will treat above and follow clinically (6) CAD (coronary artery disease): Plan: Mild coronary disease on last evaluation Patient denies chest pressure/chest pain/orthopnea/leg swelling Continue Plavix (7) COPD (chronic obstructive pulmonary disease): Plan: As noted (8) HTN (hypertension): Plan: Continue home antihypertensives (9) TIA (transient ischemic attack): Plan: Without CVA per patient. CThead pending given AMS. No focal neurologic deficits or facial asymmetry on exam Continue Plavix (10) Leg pain, left: Plan: Admission and Anticipated Discharge Date Admission Date: December 12, 2022 Subjective Patient has intermittent episodes of confusion but this is improving progressively Patient reports severe right hip and leg pain compared to yesterday CT of the right hip ordered Physical Exam Physical Exam: Head and ENT no thyroid enlargement trachea midline Cardiovascular S1-S2 are normal no S3 Lungs bilateral air entry fair no wheezing Abdomen soft nondistended positive bowel sounds no rebound tenderness Extremity shows trace edema right hip movement elicits radiating pain in the legs Neurologically no focal deficits Skin shows no rash no cyanosis Results & Data Results & Data ([facility]) Vital Signs (Past 12 Hours) Vital Signs Temp Pulse Resp BP BP Pulse Ox O2 Del Method 12/13/22 15:36 37 C 66 20 145/63 H 95 Nasal Cannula 12/13/22 14:57 96 H 18 94 Nasal Cannula 12/13/22 11:53 36.8 C 110 H 21 173/82 H 95 Nasal Cannula 12/13/22 11:08 86 18 95 Nasal Cannula 12/13/22 09:30 Nasal Cannula 12/13/22 07:35 37.3 C 100 H 20 168/77 H 97 Nasal Cannula 12/13/22 07:37 90 18 96 Nasal Cannula O2 Flow Rate 12/13/22 15:36 4 12/13/22 14:57 4 12/13/22 11:53 4 12/13/22 11:08 4 12/13/22 09:30 4 12/13/22 07:35 4 12/13/22 07:37 4 Laboratory Results Short CBC 12/13/22 Range/Units 07:14 WBC 7.46 (4.8-10.8) K/ul Hgb 11.1 L (12.0-16.0) g/dl Hct 33.0 L (37.0-47.0) % Plt Count 343 (130-400) K/uL [facility] 12/13/22 07:14 Sodium 133 L Potassium 2.9 L Chloride 99 Carbon Dioxide 27 BUN 6 Creatinine 0.41 L Calcium 8.3 L PG Care Time/CCT Total # of Minutes Spent Total Time Spent with Patient: Total time spent is greater than 50% in coordination of care (as documented) at patient's floor/unit and/or counseling patient: Coding Level of Care Code 55941 SUB INP/OBS CARE 2/35MIN Diagnoses Acute encephalopathy G93.40 Acute exacerbation of chronic obstructive pulmonary disease (COPD) J44.1 Leg pain, right M79.604 Hypokalemia E87.6 Abdominal pain R10.9 CAD (coronary artery disease) I25.10 COPD (chronic obstructive pulmonary disease) J44.9 HTN (hypertension) I10 TIA (transient ischemic attack) G45.9 Leg pain, left M79.605
[2022-12-13] MEDS ORDERED: POTASSIUM CHLORIDE CRTAB 20 MEQ TABCR PO STA (16:11)
--- NOTE | 2022-12-13 17:59 | CT Scan Report ---
CT SCAN OF THE RIGHT HIP WITHOUT IV CONTRAST CLINICAL HISTORY: Fall. Right hip pain. COMPARISON STUDY: Pelvic CT dated 12/10/2022. TECHNIQUE: CT scan of the right hip is performed from the bony pelvis to the femoral shaft. Images ar e reviewed in the axial, sagittal, and coronal planes. IV contrast was not administered for this exam ination. 3-D reformats are created and assessed. A dose lowering technique was utilized adhering to t he principles of ALARA. Note that interpretation is suboptimal without plain film correlate. CT DOSE: 162.41 mGy.cm FINDINGS: The skeletal structures are osteopenic. There is no evidence of acute fracture involving th e right hip or the visualized right hemipelvis. No lytic or blastic lesion is seen. There is no evide nce of avascular necrosis of the right femoral head. Moderate arthritic change is seen in the right h ip. No significant joint effusion is identified. There is generalized atrophy of the regional muscula ture. No hematoma is identified. The bladder wall appears thickened. The uterus is surgically absent. No free fluid is seen in the cul-de-sac. There is no right pelvic sidewall or inguinal lymphadenopat hy. IMPRESSION: No acute bony abnormality is identified. ACT 112: Negative or not required by law. Dictated: 12/13/2022 4:32 PM Transcribed: 12/13/2022 4:48 PM Anna [id number] [email or web address] Electronically signed by: Anibal Elder M.D. 12/13/2022 5:57 PM
[2022-12-13] MEDS: ROSUVASTATIN CALCIUM 20 MG TAB PO SCH (20:41)
[2022-12-13] MEDS: PROSOURCE NO CARB 30 ML/PKT PO SCH ×2 (20:42→20:45)
[2022-12-14] MEDS: DICLOFENAC SOD 1% GEL 100 GM TUBE EXT SCH ×6 (00:38→20:24)
[2022-12-14] MEDS: MELATONIN 3 MG TAB PO PRN (00:40)
[2022-12-14] MEDS: SODIUM CHLORIDE 0.9% 1000ML 1,000 ML IV SCH ×2 (00:43→09:32)
[2022-12-14] MEDS: ALBUT/IPRATROP 3MG/0.5MG NEB 3 ML VIAL INH PRN (03:35)
[2022-12-14] MEDS: ACETAMINOPHEN 325 MG TAB PO PRN ×3 (03:51→20:21)
[2022-12-14 07:22] LABS: Hematocrit (blood only) 33.3 % (37.0-47.0); Mean Corpuscular Hemoglobin 28.8 pg (25.0-34.0); Mean Corpuscular Volume 87.2 fL (80.0-100.0); Mean Platelet Volume 8.9 fL (9.4-12.4); Platelet Count 356 K/uL (130-400); RDW Standard Deviation 41.1 fL (36.4-46.3); Red Blood Count 3.82 M/uL (4.20-5.40); White Blood Count 8.56 K/ul (4.8-10.8)
[2022-12-14] MEDS: ALBUT/IPRATROP 3MG/0.5MG NEB 3 ML VIAL INH SCH ×4 (07:22→19:54)
[2022-12-14] MEDS: FORMOTEROL 20 MCG/2 ML VIAL INH SCH ×2 (07:22→19:52)
[2022-12-14 07:28] LABS: Calcium 8.3 mg/dl (8.5-10.1); Creatinine Clr Calc Pharmacy 81.2 ml/min; Est GFR (African American) 114.7 ml/min; Potassium 3.1 mmol/L (3.5-5.1)
[2022-12-14] MEDS: CYANOCOBALAMIN (B-12) 500 MCG TABLET PO SCH (08:10)
[2022-12-14] MEDS: PANTOprazole 40 MG TAB PO SCH (08:10)
[2022-12-14] MEDS: ESCITALOPRAM OXALATE 10 MG TAB PO SCH (08:10)
[2022-12-14] MEDS: FERROUS SULFATE 325 MG TAB PO SCH (08:10)
[2022-12-14] MEDS: predniSONE 5 MG TAB PO SCH (08:11)
[2022-12-14] MEDS: ADVANCED PROBIOTIC 1250 MG CAPSULE PO SCH ×2 (08:12→20:23)
[2022-12-14] MEDS: busPIRone 7.5 MG TAB PO SCH ×3 (08:12→20:22)
[2022-12-14] MEDS: guaiFENesin 600 MG TABCR PO SCH ×2 (08:12→20:22)
[2022-12-14] MEDS: FAMOTIDINE 20 MG TAB PO SCH ×2 (08:12→20:22)
[2022-12-14] MEDS: FLUTICASONE PROPIONATE NA SPR 16 GM BTL NAE SCH (08:12)
[2022-12-14] MEDS: LIDOCAINE 5% 1 PATCH TD SCH (08:13)
[2022-12-14] MEDS: SUCRALFATE 1 GM TAB PO SCH ×2 (08:13→20:25)
[2022-12-14] MEDS: CLOPIDOGREL BISULFATE 75 MG TAB PO SCH (08:13)
[2022-12-14] MEDS ORDERED: KETOROLAC TROMETHAMINE 15 MG/ML VIAL IV ONE (10:21)
[2022-12-14] MEDS: COLESTIPOL HCL 1 GM TAB PO SCH ×3 (10:31→21:46)
[2022-12-14] MEDS ORDERED: POTASSIUM CHLORIDE CRTAB 20 MEQ TABCR PO STA (14:18)
--- NOTE | 2022-12-14 14:23 | Hospitalist Progress Note ---
Date of Service December 14, 2022 Assessment & Plan (1) Acute encephalopathy: Plan: Acute encephalopathy Unclear etiology, now resolved Did worsen after receiving lorazepam for CT during ER evaluation. Patient has a history of medication induced encephalopathy -CT head did not show any acute pathology -Patient now back to baseline. (2) Acute exacerbation of chronic obstructive pulmonary disease (COPD): Plan: Patient reports increased cough, increased sputum volume, and increased thickness of white-colored sputum in the last week Wheezing initially in ER, improved with trace residual wheezing following hospital assessment after a DuoNeb We will treat with doxycycline 100 mg twice daily x5 days Steroids deferred due to minimal wheezing on exam. Prednisone continued (3) Leg pain, right: Plan: -Patient continues to have severe radiculopathy -CT shows evidence of hip arthritis -For outpatient follow up with ortho (4) Hypokalemia: Plan: Replete (5) Abdominal pain: Plan: Patient with mild left lower quadrant/left suprapubic pain which has not worsened on palpation and is without rebound CT suggestive of possible cystitis, although UA appears noninfected. -Pain now resolved (6) CAD (coronary artery disease): Plan: Mild coronary disease on last evaluation Patient denies chest pressure/chest pain/orthopnea/leg swelling Continue Plavix (7) COPD (chronic obstructive pulmonary disease): Plan: As noted (8) HTN (hypertension): Plan: Continue home antihypertensives (9) TIA (transient ischemic attack): Plan: Without CVA per patient. CThead pending given AMS. No focal neurologic deficits or facial asymmetry on exam Continue Plavix (10) Leg pain, left: Plan: Plan d/c to center care in the next 24 hrs Admission and Anticipated Discharge Date Admission Date: December 12, 2022 Subjective patient seen and examined, says she wants to go home Review of Systems Review of Systems: The patient is awake, alert and oriented 3, well developed and well nourished, normocephalic and atraumatic, lying in bed and in no acute distress. HEENT--PERRL, EOMI, mucous membranes and oropharynx mildly dry Neck--supple. No JVD. No bruits. Thyroid normal, trachea midline, no adenopathy. Heart--normal S1 and S2. No murmurs, rubs or gallops. Lungs--clear bilaterally, no respiratory distress, no accessory muscle use. Abdomen--normal bowel sounds and soft. Mild epigastric and left sided abdominal pain Extremities--no cyanosis or clubbing. No edema. Dermatologic--normal skin turgor, normal color, no abnormal lymph nodes, no rash. Neurologic--cranial nerves II through XII grossly intact. Rheumatologic--normal range of motion. Psychiatric--normal affect. Results & Data Results & Data ([facility]) Vital Signs (Past 12 Hours) Vital Signs Temp Pulse Resp BP BP Pulse Ox O2 Del Method 12/14/22 11:04 70 18 97 Nasal Cannula 12/14/22 08:00 Nasal Cannula 12/14/22 07:22 104 H 18 96 Nasal Cannula 12/14/22 06:53 97.9 F 102 H 20 191/74 H 95 Nasal Cannula 12/14/22 04:00 98.1 F 84 18 152/77 H 95 Nasal Cannula 12/14/22 03:35 107 H 20 93 Nasal Cannula O2 Flow Rate 12/14/22 11:04 4 12/14/22 08:00 4 12/14/22 07:22 4 12/14/22 06:53 4 12/14/22 04:00 4 12/14/22 03:35 4 PG Care Time/CCT Total # of Minutes Spent Total Time Spent with Patient: Total time spent is greater than 50% in coordination of care (as documented) at patient's floor/unit and/or counseling patient: Coding Level of Care Code 41369 SUB INP/OBS CARE 2/35MIN Diagnoses Acute encephalopathy G93.40 Acute exacerbation of chronic obstructive pulmonary disease (COPD) J44.1 Leg pain, right M79.604 Hypokalemia E87.6 Abdominal pain R10.9 CAD (coronary artery disease) I25.10 COPD (chronic obstructive pulmonary disease) J44.9 HTN (hypertension) I10 TIA (transient ischemic attack) G45.9 Leg pain, left M79.605 Time Spent (min) 35
[2022-12-14] MEDS: ROSUVASTATIN CALCIUM 20 MG TAB PO SCH (20:22)
[2022-12-14] MEDS: PROSOURCE NO CARB 30 ML/PKT PO SCH (20:25)
[2022-12-15] MEDS: DICLOFENAC SOD 1% GEL 100 GM TUBE EXT SCH ×4 (00:38→12:05)
[2022-12-15] MEDS: ONDANSETRON 4 MG OD TAB PO PRN (02:08)
[2022-12-15] MEDS: ACETAMINOPHEN 325 MG TAB PO PRN ×2 (02:22→12:04)
[2022-12-15] MEDS: ALBUT/IPRATROP 3MG/0.5MG NEB 3 ML VIAL INH PRN (05:15)
[2022-12-15] MEDS: ALBUT/IPRATROP 3MG/0.5MG NEB 3 ML VIAL INH SCH ×2 (07:22→10:54)
[2022-12-15] MEDS: FORMOTEROL 20 MCG/2 ML VIAL INH SCH (07:22)
[2022-12-15] MEDS: LIDOCAINE 5% 1 PATCH TD SCH (07:51)
[2022-12-15] MEDS: SUCRALFATE 1 GM TAB PO SCH (07:54)
[2022-12-15] MEDS: PANTOprazole 40 MG TAB PO SCH (07:55)
[2022-12-15] MEDS: CLOPIDOGREL BISULFATE 75 MG TAB PO SCH (07:55)
[2022-12-15] MEDS: FERROUS SULFATE 325 MG TAB PO SCH (07:56)
[2022-12-15] MEDS: ADVANCED PROBIOTIC 1250 MG CAPSULE PO SCH (07:56)
[2022-12-15] MEDS: predniSONE 5 MG TAB PO SCH (07:56)
[2022-12-15] MEDS: ESCITALOPRAM OXALATE 10 MG TAB PO SCH (07:56)
[2022-12-15] MEDS: busPIRone 7.5 MG TAB PO SCH ×2 (07:57→15:28)
[2022-12-15] MEDS: FAMOTIDINE 20 MG TAB PO SCH (07:57)
[2022-12-15] MEDS: guaiFENesin 600 MG TABCR PO SCH (07:58)
[2022-12-15] MEDS: FLUTICASONE PROPIONATE NA SPR 16 GM BTL NAE SCH (07:58)
[2022-12-15] MEDS: CYANOCOBALAMIN (B-12) 500 MCG TABLET PO SCH (07:59)
[2022-12-15] MEDS ORDERED: KETOROLAC TROMETHAMINE 15 MG/ML VIAL IV ONE (09:34)
[2022-12-15] MEDS: COLESTIPOL HCL 1 GM TAB PO SCH ×2 (09:45→15:28)
--- NOTE | 2022-12-15 12:37 | Discharge Summary ---
Date of Service December 15, 2022 Admission HPI Per Admitting Provider Ana is a 77-year-old female with past medical history of severe COPD with 4 L baseline oxygen requirement, chronic right lower extremity, right lower abdominal pain with unclear etiology, failure to thrive, chronic diarrhea, hyponatremia, peripheral artery disease, and metabolic encephalopathy suspected due to medication induced CO2 narcosis. Patient presented with an episode of right lower abdominal pain, CT of the abdomen and pelvis suspicious for cystitis/UTI, otherwise did not show abnormality on contrasted study. Patient did receive Ativan due to anxiety and agitation, subsequently with significant confusion. By report and discussion with [facility] patient is normally alert, well oriented, with normal thought process. At bedside assessment she is impulsive, answer some quick questions appropriately, but appears restless and tangential while being oriented only to name. Due to acute encephalopathy and unclear cause of a leukocytosis she has been recommended for admission. At bedside Ana reports she does have some left lower abdominal pain which has not worsened by palpation and which is tolerable to her. Denies fever, chills, sweats, dysuria. She does report that her cough has been increased in the last week and she has had more sputum production with white coloring. She has not had fever/chills/sweats. No chest pain or chest pressure. No headache. No photo or phono sensitivity. Other than the left lower pain as noted she denies other abdominal pain. Moving all extremities equally. Denies dysuria Medical History: Reviewed Medications: Reviewed Surgical History: Reviewed Allergies: Reviewed Social History: Reviewed, former smoker Code Status: Full code Principal Diagnosis acute encephalopathy Discharge Exam The patient is awake, alert and oriented 3, well developed and well nourished, normocephalic and atraumatic, lying in bed and in no acute distress. HEENT--PERRL, EOMI, mucous membranes and oropharynx mildly dry Neck--supple. No JVD. No bruits. Thyroid normal, trachea midline, no adenopathy. Heart--normal S1 and S2. No murmurs, rubs or gallops. Lungs--clear bilaterally, no respiratory distress, no accessory muscle use. Abdomen--normal bowel sounds and soft. Mild epigastric and left sided abdominal pain Extremities--no cyanosis or clubbing. No edema. Dermatologic--normal skin turgor, normal color, no abnormal lymph nodes, no rash. Neurologic--cranial nerves II through XII grossly intact. Rheumatologic--normal range of motion. Psychiatric--normal affect. Discharge Data Allergies Allergy/AdvReac Type Severity Reaction Status Date / Time metoclopramide Allergy Severe "lungs Verified 12/10/22 16:01 collapsed" cortisone Allergy Intermediate swelling Verified 12/10/22 16:01 salicylates Allergy Intermediate caused Verified 12/10/22 16:01 bleeding, can take EC aspirin Corticosteroids AdvReac Intermediate swelling Verified 12/10/22 16:01 (Glucocorticoids) Consultations 12/10/22 16:07 ED Decision to Admit Stat 12/12/22 18:33 Consult Neurology Routine Ordered Studies 12/10/22 09:23 CT abd pelvis IV con only Stat 12/10/22 16:05 CT head/brain wo con Stat 12/13/22 16:05 CT hip RT wo con Routine Hospital Course (1) Acute encephalopathy: Acute encephalopathy Unclear etiology, now resolved Did worsen after receiving lorazepam for CT during ER evaluation. Patient has a history of medication induced encephalopathy -CT head did not show any acute pathology -Patient now back to baseline. (2) Acute exacerbation of chronic obstructive pulmonary disease (COPD): Patient reports increased cough, increased sputum volume, and increased thickness of white-colored sputum in the last week Wheezing initially in ER, improved with trace residual wheezing following hospital assessment after a DuoNeb We will treat with doxycycline 100 mg twice daily x5 days Steroids deferred due to minimal wheezing on exam. Prednisone continued (3) Leg pain, right: -Patient continues to have severe radiculopathy -CT shows evidence of hip arthritis -For outpatient follow up with ortho, may need injections (4) Hypokalemia: Replete (5) Abdominal pain: Patient with mild left lower quadrant/left suprapubic pain which has not worsened on palpation and is without rebound CT suggestive of possible cystitis, although UA appears noninfected. -Pain now resolved (6) CAD (coronary artery disease): Mild coronary disease on last evaluation Patient denies chest pressure/chest pain/orthopnea/leg swelling Continue Plavix (7) COPD (chronic obstructive pulmonary disease): As noted (8) HTN (hypertension): Continue home antihypertensives (9) TIA (transient ischemic attack): Without CVA per patient. CThead pending given AMS. No focal neurologic deficits or facial asymmetry on exam Continue Plavix (10) Leg pain, left: Plan d/c to [facility] in the next 24 hrs Total Time Total Time Spent Total Time Spent (In Minutes): 35 Discharge Plan Discharge Items Patient Disposition: Personal Usp Reason For Visit: AMS, ?AOCCOPD Discharge Diagnosis: Acute encephalopathy Activity: Resume your previous activity Non-emergency contact: Primary Care Provider Call non-emergency contact if: you have any medication questions Follow-up/Referrals: [facility] [Primary Care Provider] - Diet: Regular Addtl Attending Provider Instructions: please make appointment to follow up with orthopedic for your hip arthritis Pending Studies at Discharge: No Stand-Alone Forms: My [employer], Smoking Cessation Skilled Items Patient informed of condition?: Yes DNR: No Discharge Level of Care: Other Communicable Disease: No Discharge Prognosis: Stable Lines: None Urinary Catheter: No Medications and DC Order Prescriptions: Continued clopidogrel [Plavix] 75 mg Tablet 75 mg PO QAM Patient Comments: PRESENTLY ON HOLD FOR COLONOSCOPY ferrous sulfate 325 mg (65 mg iron) Tablet 325 mg PO DAILY escitalopram oxalate [Lexapro] 5 mg Tablet 5 mg PO QAM cyanocobalamin (vitamin B-12) 500 mcg Tablet, Sublingual 500 mcg SUBLINGUAL QAM famotidine [Pepcid] 20 mg tablet 20 mg PO BID sucralfate [Carafate] 1 gram tablet 1 g PO BID Atrovent HFA 17 mcg/actuation HFA aerosol inhaler 2 puff INHALATION Q4H PRN (Reason: asthma) arformoterol [Brovana] 15 mcg/2 mL Solution For Nebulization 15 mcg inhalation BID17 pantoprazole [Protonix] 40 mg tablet,delayed release (DR/EC) 40 mg PO DAILY magnesium hydroxide [Milk of Magnesia] 400 mg/5 mL Suspension 30 ml PO HS PRN (Reason: Constipation) bisacodyl [Dulcolax (bisacodyl)] 10 mg Suppository 10 mg [place] DAILY PRN (Reason: Constipation) colestipol 1 gram Tablet 1 g PO TID prednisone 10 mg Tablet 15 mg PO DAILY ipratropium-albuterol 0.5 mg-3 mg(2.5 mg base)/3 mL Solution For Nebulization 3 ml INHALATION QID ondansetron HCl 4 mg Tablet 4 mg PO Q6H PRN (Reason: NAUSEA/VOMITING) tramadol 50 mg Tablet 50 mg PO Q12H PRN (Reason: Pain) buspirone 15 mg Tablet 7.5 mg PO TID diclofenac sodium [Voltaren Arthritis Pain] 1 % gel 4 g EXT Q4H diltiazem HCl 60 mg Capsule,Extended Release 12 Hr 60 mg PO QAM ipratropium-albuterol 0.5 mg-3 mg(2.5 mg base)/3 mL Solution For Nebulization 3 ml INHALATION Q4H PRN (Reason: Shortness Of Breath Or Wheezing) rosuvastatin 10 mg Tablet 20 mg PO HS protein supplement Liquid 1 ea PO QPM Rx Instructions: GIVE 30 ML. guaifenesin 600 mg tablet extended release 12hr 600 mg PO Q12 Lactobacillus acidophilus Tablet,Chewable 1 tab PO BID Saccharomyces boulardii 250 mg Capsule 500 mg PO BID acetaminophen [Tylenol] 325 mg Tablet 650 mg PO Q6 PRN (Reason: pain 1-4/FEVER >100) albuterol sulfate 90 mcg/actuation HFA aerosol inhaler 2 puff INHALATION Q12 PRN (Reason: Wheezing) mometasone 50 mcg/actuation spray,non-aerosol 1 spray INTRANASAL DAILY lidocaine 4 % Adhesive Patch,Medicated 1 patch TOPICAL DAILY Rx Instructions: apply patch to right thigh in the morning, remove at bedtime Discontinued clonazepam 0.5 mg Tablet 0.5 mg PO TID gabapentin 400 mg Capsule 400 mg PO TID Discharge Orders: Discharge Order (Routine); Ordered 12/15/22 Ordered By: Efraín Ellis Admission Data Admit Date/Time: 12/12/22 18:34 Attending Provider: Efraín Ellis Admit Provider: Jerson Stewart Primary Care Provider: [facility] Other Providers: Jerson Stewart ; Brian Bonner Coding Level of Care Code HOSP INP/OBS DISCH >30 MIN Diagnoses Acute encephalopathy G93.40 Acute exacerbation of chronic obstructive pulmonary disease (COPD) J44.1 Leg pain, right M79.604 Hypokalemia E87.6 Abdominal pain R10.9 CAD (coronary artery disease) I25.10 COPD (chronic obstructive pulmonary disease) J44.9 HTN (hypertension) I10 TIA (transient ischemic attack) G45.9 Leg pain, left M79.605 Time Spent (min) 35
--- NOTE | 2022-12-20 11:07 | Coding Query ---
CODING QUERY To promote full compliance with coding requirements relating to patient care, provider participation is requested in all cases of lead data architect uncertainty. Please assist us with the question(s) below: Coding Question(s): Pt adm with altered mental status, COPD exacerbation. Neuro consult 12/13 documented metabolic encephalopathy due to COPD. DS documented encephalopathy noted after administration of Lorazepam.Please document, if known or suspected, the etiology of the encephalopathy. Thank you ! Param Carroll [facility] Physician's Response(s): metabolic encephalopathy Principal Diagnosis: "that condition established after study, to be chiefly responsible for occasioning the admission of the patient to the hospital for care." Co-Existing Principal Diagnosis: "when two or more diagnoses equally meet the criteria for principal diagnosis as determined by the circumstances of admission, diagnostic work up, and/or therapy provided, and the Alphabetic Index, Tabular List, or another coding guideline does not provide sequencing direction, any one of the diagnoses may be sequenced first." "When the physician has documented what appears to be a current diagnosis in the body of the record, but has not included the diagnosis in the final diagnostic statement, the physician should be asked whether the diagnosis should be added." (Source Coding Clinic 2 QTR90. p3-4) BI
== END 2022-12-15 16:23 | DRG 70 ==
LOC: ED 09:05 → 2W 09:05 → SUATTDRO 16:51 → 2W 19:23 → SUATTDRO 12-12 18:34

== ENCOUNTER 2023-09-28 16:54 | Inpatient (IN) ==
--- NOTE | 2023-09-28 18:06 | Emergency Department Note ---
Impression & Plan Change in mental status, COPD (chronic obstructive pulmonary disease), Chronic respiratory failure, Encephalopathy ED Provider Note NAME: MARLENA PHILLIPS AGE: 78 SEX: F ARRIVES VIA: Ambulance INFORMANT: Patient ED PROVIDER(S): Jean Weems MD CHIEF COMPLAINT: Hospice discontinued by daughter today. Request evaluation. PLAN: Disposition: Admit MEDICAL DECISION MAKING: The patient is a 78-year-old woman with a past medical history of severe COPD/chronic respiratory failure on home oxygen, recently under hospice care for her severe COPD residing at [facility] nursing [facility], history of metabolic encephalopathy, history of CVA/TIA, CAD, hypertension, hyperlipidemia who presents to the emergency department via EMS from her retirement facility at the request of the patient's daughter who decided to withdraw the patient from hospice care today. RN did contact [facility] staff and they were not specifically clear as to why the patient's daughter wanted to do this. The patient's daughter was present in the emergency department initially but left prior to discussing her detailed concerns with a provider. Ultimately the patient's daughter was able to be contacted after attempts over a couple of hours and I spoke to her personally over the phone and she describes that she understood that the patient was signed up for hospice specifically for her COPD and if her lung disease were to worsen leading then comfort would be the priority but she did not understand the full scope of hospice care regarding limitations in care. She cites that she was not pleased with the fact that the patient was unable to receive physical therapy due to being on hospice. Additionally she feels that the patient has recent become more confused where she did not even recognize her today and worries that she is being overly medicated with morphine for pain. She reports she wants all testing done that would typically be done for any patient and agrees with admission for further testing. Of note, the patient did arrive to emergency department during time of high volume, acuity and prolonged emergency department waiting times. On my evaluation the patient is chronically ill-appearing but no distress, afebrile with stable vital signs with O2 saturation 90s on 4L home O2 via [place]. She appears to be at her recent baseline as described by staff at her retirement facility per RN discussion. She is nonverbal with this provider but does respond to her name. She appears to have a chronic right upper extremity hand contracture and otherwise moves her left upper extremity with 4/5 strength in addition to 4/5 strength of bilateral lower extremities. Lungs with diminished breath sounds bilaterally with scant underlying wheeze without increased work of breathing. EKG without overt acute ischemia. CXR negative for acute cardiopulmonary process per my personal preliminary review/interpretation. WBC, H/H and platelets within normal limits. Chemistry without metabolic acidosis. Bicarbonate is 33, similar to prior consistent with a history of chronic hypercapnia. Electrolytes without significant abnormalities. LFTs unremarkable. TSH within normal limits. Close obtained and demonstrates WBC is LBL with epithelial cells present and no bacteria. Additionally nitrite negative. COVID-19 RNA, LORY test was negative. Patient appears to be stable at her recent baseline he concerns expressed by the daughter reflect a lack of clarity in the patient's goals of care and so patient was referred to hospital service for admission for further evaluation in addition to palliative care consultation and further clarification of goals of care and treatment plan going forward. I did express the importance to the patient's daughter to be available to be present in person for further discussion of goals of care with the admitting team tomorrow. Case was discussed with Dr. Molina, [facility] hospitalist, who will evaluate the patient for admission. Further management per admitting team. Triage Nursing notes reviewed and agree them. Prior/external medical records reviewed Vital Signs: reviewed Differential diagnosis: Infection, dehydration, metabolic abnormality, hypo/hyperglycemia, electrolyte disturbance, anemia, hypoxia, cardiac sources, intracerebral event, toxicologic, neurologic, as well as other pathologies. ER treatment provided: See below. Diagnostics interpreted by me: ECG: Sinus tachycardia, 105 bpm, no ectopy, no overt ST elevation or depression, QTc 467, QRS 74 Cardiac Monitoring: An order for continuous cardiac monitoring was placed and demonstrated Sinus tachycardia, 105 bpm, no ectopy Laboratory studies: See below Imaging studies: See below Consultation(s): Case was discussed with Dr. Molina [facility] hospitalist, who will evaluate the patient for admission. HPI: The patient is a 78-year-old woman with a past medical history of severe COPD/chronic respiratory failure on home oxygen, recently under hospice care for her severe COPD residing at [facility], history of metabolic encephalopathy, history of CVA/TIA,, hypertension, hyperlipidemia who presents to the emergency department via EMS from her retirement facility at the request of the patient's daughter who decided to withdraw the patient from hospice care today. RN did contact [facility] staff and they were not specifically clear as to why the patient's daughter wanted to do this. The patient's daughter was present in the emergency department initially but left prior to discussing her detailed concerns with a provider. Ultimately the patient's daughter was able to be contacted after attempts over a couple of hours and I spoke to her personally over the phone and she describes that she understood that the patient was signed up for hospice specifically for her COPD and if her lung disease were to worsen leading then comfort would be the priority but she did not understand the full scope of hospice care regarding limitations in care. She cites that she was not pleased with the fact that the patient was unable to receive physical therapy due to being on hospice. Additionally she feels that the patient has recent become more confused where she did not even recognize her today and worries that she is being overly medicated with morphine for pain. She reports she wants all testing done that would typically be done for any patient and agrees with admission for further testing. ROS: See above HPI for pertinent positives & negatives. A total of 10 systems reviewed and were otherwise negative. VITALS:See Below PHYSICAL EXAMINATION: GENERAL: Awake, alert, chronically ill-appearing, cachectic, in no distress HENT: Normocephalic, atraumatic. Oropharynx with dry mucous membranes and otherwise unremarkable. EYES: Normal conjunctiva. Sclera non-icteric. NECK: Supple. No nuchal rigidity. FROM. No JVD. RESPIRATORY: Diminished breath sounds bilaterally with scant underlying wheeze without increased work of breathing. CARDIAC: Regular rate, normal rhythm. Extremities warm and well perfused. Pulses equal. ABDOMEN: Soft, non-distended. No tenderness to palpation. No rebound or guarding. No masses. RECTAL: Deferred. MUSCULOSKELETAL: Chest examination reveals no tenderness. The back is symmetrical on inspection without obvious abnormality. There is no CVA tenderness to palpation. No joint edema. LOWER EXTREMITIES: Calves are equal size bilaterally and non-tender. No edema. No discoloration. NEURO: Nonverbal with this provider but does respond to her name. Chronic right upper extremity hand contracture and otherwise moves her left upper extremity with 4/5 strength in addition to 4/5 strength of bilateral lower extremities. SKIN: No rash or jaundice noted. Jean Weems MD Past Med/Surg History Medical History [facility] resident resident of [facility] rehab TIA (transient ischemic attack) History of GI bleed History of anemia History of esophageal dilatation Diarrhea Difficulty swallowing PVD (peripheral vascular disease) GERD (gastroesophageal reflux disease) Osteoporosis Arthritis Anxiety SOB (shortness of breath) on exertion Chronic obstructive pulmonary disease OXYGEN 3-4 L/MIN CONTINUOUSLY CAD (coronary artery disease) F/U DR Angélica LEONARDO Hyperlipidemia Hypertension History of esophageal stricture Asymptomatic bilateral carotid artery stenosis "s/p bilateral carotid endarterectomy" Surgical History H/O vascular surgery RIGHT ILIAC ARTERY STENT PLACEMENT H/O knee surgery History of appendectomy History of esophagogastroduodenoscopy (EGD) History of colonoscopy History of cataract surgery R/L H/O hemorrhoidectomy H/O carotid endarterectomy R/L History of cardiac cath NO STENTS Family History Other No family history of adverse response to anesthesia Social History Smoking Status: Former smoker Age Started Using Tobacco: 19; packs per day: 2; Cigarettes Per Day: 5-10 CIG a day ADVISED; Do You Dip or Chew Tobacco: Yes; Hx Alcohol Use: No Hx Substance Use: No Preferred Language: Bruneian Communication Ability: Effective Video Editor Required: No Beliefs That Will Affect Care: None marital status: / Current Living Situation: [facility] Current Living Situation Comment: [facility] How many Children do You have: 1 Feels Safe at Home: Yes Assistive Devices: Oxygen - Continuous, Walker and Wheelchair Allergies Allergies Allergy/AdvReac Type Severity Reaction Status Date / Time metoclopramide Allergy Severe "lungs Verified 12/10/22 16:01 collapsed" cortisone Allergy Intermediate swelling Verified 12/10/22 16:01 salicylates Allergy Intermediate caused Verified 12/10/22 16:01 bleeding, can take EC aspirin Corticosteroids AdvReac Intermediate swelling Verified 12/10/22 16:01 (Glucocorticoids) Home Meds Home Medications Medication Instructions Recorded Confirmed clopidogrel 75 mg tablet (Plavix) 75 mg PO QAM 08/15/19 09/28/23 cyanocobalamin (vitamin B-12) 500 500 mcg sublingual QAM 08/15/19 09/28/23 mcg sublingual tablet escitalopram oxalate 5 mg tablet 5 mg PO QAM 08/15/19 09/28/23 (Lexapro) ferrous sulfate 325 mg (65 mg 325 mg PO QAM 08/15/19 09/28/23 iron) tablet sucralfate 1 gram tablet (Carafate) 1 g PO BID 12/02/19 09/28/23 pantoprazole 40 mg tablet,delayed 40 mg PO DAILY 12/04/19 09/28/23 release (Protonix) diltiazem HCl 60 mg 60 mg PO QAM 02/17/22 09/28/23 capsule,extended release 12 hr protein supplement 1 ea PO QPM 04/27/22 09/28/23 Lactobacillus acidophilus 1 tab PO BID 10/22/22 09/28/23 Saccharomyces boulardii 250 mg 500 mg PO BID 10/22/22 09/28/23 capsule acetaminophen 325 mg tablet 650 mg PO Q6 PRN pain 1-4/FEVER 10/22/22 09/28/23 (Tylenol) >100 albuterol sulfate 90 mcg/actuation 2 puff inhalation Q12 PRN 10/22/22 09/28/23 aerosol inhaler Shortness Of Breath Or Wheezing guaifenesin 600 mg tablet, 600 mg PO Q12 10/22/22 09/28/23 extended release 12 hr diclofenac sodium 1 % topical gel 4 g EXT QID 12/10/22 09/28/23 (Voltaren Arthritis Pain) prednisone 10 mg tablet 10 mg PO QAM 12/10/22 09/28/23 albuterol sulfate 2.5 mg/3 mL 2.5 mg inhalation .EVERY 2 HOURS 09/28/23 09/28/23 (0.083 %) solution for nebulization PRN SOB/wheeze albuterol sulfate 2.5 mg/3 mL 2.5 mg inhalation QID 09/28/23 09/28/23 (0.083 %) solution for nebulization atropine sulfate (PF) 1 % eye 3 drp .EVERY 1 HOUR PRN increased 09/28/23 09/28/23 drops in a dropperette secretions budesonide 160 mcg-glycopyr 9 2 inh inhalation BID 09/28/23 09/28/23 mcg-formot 4.8 mcg/actuation HFA inhaler (Breztri Aerosphere) buspirone 7.5 mg tablet 7.5 mg PO TID 09/28/23 09/28/23 ceftriaxone 1 gram solution for 1 g IM QPM 09/28/23 09/28/23 injection clonazepam 0.5 mg tablet 0.5 mg PO BID 09/28/23 09/28/23 estradiol 0.01% (0.1 mg/gram) 1 applic vaginal 3XWK 09/28/23 09/28/23 vaginal cream famotidine 20 mg tablet 20 mg PO AMHS 09/28/23 09/28/23 fentanyl 12 mcg/hr transdermal 1 patch transdermal [id number] 09/28/23 09/28/23 patch fluticasone propionate 50 2 spray intranasal QAM 09/28/23 09/28/23 mcg/actuation nasal spray,suspension gabapentin 300 mg capsule 300 mg PO TID 09/28/23 09/28/23 guaifenesin 100 mg/5 mL oral liquid 300 mg PO Q4H PRN Cough 09/28/23 09/28/23 lidocaine HCl 10 mg/mL (1 %) 2.1 ml IM QPM 09/28/23 09/28/23 injection solution loratadine 10 mg tablet 10 mg PO QAM 09/28/23 09/28/23 lorazepam 0.5 mg tablet 0.5 mg PO .EVERY 1 HOUR PRN 09/28/23 09/28/23 restlessness/agitaion morphine concentrate 100 mg/5 mL 10 mg PO .EVERY 30 MINUTES PRN 09/28/23 09/28/23 (20 mg/mL) oral solution pain 9-10/SOB morphine concentrate 20 mg/mL oral 5 mg PO QID 09/28/23 09/28/23 syringe (FOR ORAL USE ONLY) nystatin 100,000 unit/mL oral 5 ml PO QID 09/28/23 09/28/23 suspension ondansetron HCl 4 mg tablet 4 mg PO Q6 PRN N/V 09/28/23 09/28/23 oxycodone 10 mg tablet 10 mg PO Q6H PRN pain 5-8 09/28/23 09/28/23 oxymetazoline 0.05 % nasal spray 2 spray intranasal Q12H PRN 09/28/23 09/28/23 (Afrin (oxymetazoline)) epistaxis rosuvastatin 20 mg tablet 20 mg PO HS 09/28/23 09/28/23 Results & Data (ED) Vital Signs Vital Signs - 24 hr 09/28/23 17:09 09/28/23 17:16 09/28/23 19:09 Temperature 36.8 C Temperature Source Oral Pulse Rate 106 H 108 H Pulse Rhythm Regular Respiratory Rate 22 Respiratory Effort / Characteristics Non-Labored Spontaneous Respiratory Depth Normal Respiratory Pattern Regular Blood Pressure 121/66 Blood Pressure Mean 84 Pulse Oximetry 98 94 Oxygen Delivery Method Nasal Cannula Nasal Cannula Oxygen Flow Rate 4 5 Sepsis Recent Fever Within 48 Hours No Sepsis New/Unexplained Change in Mental Status No Sepsis Action Taken by Nursing No Action Required 09/28/23 21:18 Temperature Temperature Source Pulse Rate 88 Pulse Rhythm Respiratory Rate Respiratory Effort / Characteristics Respiratory Depth Respiratory Pattern Blood Pressure Blood Pressure Mean Pulse Oximetry Oxygen Delivery Method Oxygen Flow Rate Sepsis Recent Fever Within 48 Hours Sepsis New/Unexplained Change in Mental Status Sepsis Action Taken by Nursing Laboratory Data Attestation: I reviewed the patient's lab results. 09/28/23 19:51 09/28/23 19:51 Lab Results 09/28/23 09/28/23 09/28/23 Range/Units 19:27 19:51 20:16 WBC 9.52 (4.8-10.8) K/ul RBC 4.02 L (4.20-5.40) M/uL Hgb 11.7 L (12.0-16.0) g/dl Hct 37.0 (37.0-47.0) % MCV 92.0 (80.0-100.0) fL MCH 29.1 (25.0-34.0) pg MCHC 31.6 L (32.0-36.0) g/dL RDW Std Deviation 41.8 (36.4-46.3) fL RDW Coeff of Renetta 12.5 (11.5-14.5) % Plt Count 287 (130-400) K/uL MPV 9.6 (9.4-12.4) fL Immature Gran % (Auto) 0.6 % Neut % (Auto) 76.0 % Lymph % (Auto) 8.7 % Harris % (Auto) 11.9 % Eos % (Auto) 2.4 % Baso % (Auto) 0.4 % Neut # (Auto) 7.23 H (1.40-6.50) K/uL Lymph # (Auto) 0.83 L (1.20-3.40) K/uL Harris # (Auto) 1.13 H (0.11-0.59) K/uL Eos # (Auto) 0.23 (0.00-0.50) K/uL Baso # (Auto) 0.04 (0.00-0.20) K/uL Immature Gran # (Auto) 0.06 (0.01-0.20) K/uL PT 11.1 (9.0-12.0) Seconds INR 1.0 (0.9-1.1) Sodium 134 L (136-145) mmol/L Potassium 4.0 (3.5-5.1) mmol/L Chloride 93 L (98-107) mmol/L Carbon Dioxide 33 H (21-32) mmol/L Anion Gap 8 (3-11) BUN 14 (6-23) mg/dl Creatinine 0.73 (0.6-1.2) mg/dl Est Cr Clr Drug Dosing Not Reportable Est GFR ( Amer) 90.8 ml/min Est GFR (Non-Af Amer) 78.3 ml/min BUN/Creatinine Ratio 19.2 (10-20) Glucose 108 H (70-99(Fasting)) mg/dl Calcium 8.9 (8.6-10.3) mg/dl Magnesium 1.7 (1.7-2.4) mg/dl Total Bilirubin 0.4 (0.2-1.0) mg/dl AST 30 (13-39) U/L ALT 15 (7-52) U/L Alkaline Phosphatase 52 (34-104) U/L Total Protein 6.8 (6.0-8.3) gm/dl Albumin 3.6 (3.4-5.0) gm/dl Globulin 3.2 (2.5-4.0) gm/dl Albumin/Globulin Ratio 1.1 (0.9-2) TSH 2.420 (0.300-4.500) uIu/ml Urine Color Dark Yellow Urine Appearance Cloudy A (Clear) Urine pH 5.5 (4.5-7.5) Ur Specific [place] 1.024 (1.000-1.030) Urine Protein 1+ H (Negative) Urine Glucose (UA) Negative (Negative) Urine Ketones 1+ H (Negative) Urine Blood 2+ H (Negative) Urine Nitrite Negative (Negative) Urine Bilirubin 1+ H (Negative) Urine Urobilinogen Negative (Negative) Ur Leukocyte Esterase Trace H (Negative) Urine WBC (Auto) >30 H (0-5) /hpf Urine RBC (Auto) 5-10 H (0-4) /hpf U Hyaline Cast (Auto) >30 H (0-5) /lpf U Epithel Cells (Auto) >30 H (0-5) /lpf Urine Bacteria (Auto) Negative (Negative) Ur Renal Epithelial Cell 0-5 (0-5) /lpf Urine Mucus Present A (None Prsent) SARS-CoV-2, RNA, NAAT NEGATIVE (NEGATIVE) Administered Medications Discontinued Medications Albuterol (Albut/Ipratrop 3mg/0.5mg Neb 3 Ml Vial) 3 ml NEB NOW STA; Protocol Stop: 09/28/23 21:22 Last Admin: 09/28/23 22:15 Dose: 3 ml Documented By: CAN Cefepime HCl (Maxipime) 2,000 mg in 20 mls @ 5 mls/min IV NOW STA; Protocol Stop: 09/28/23 21:47 Last Admin: 09/28/23 22:16 Dose: 5 mls/min Documented By: CAN Methylprednisolone (Methylprednisolone 125 Mg/2 Ml Vial) 125 mg IV NOW STA Stop: 09/28/23 21:22 Last Admin: 09/28/23 22:16 Dose: 125 mg Documented By: CAN Imaging Data Radiologist's Impression: Head CT 09/28/23 21:32 Exam(s): CT HEAD Without Contrast EXAM: CT Head Without Intravenous Contrast CLINICAL HISTORY: Reason for exam: ams. TECHNIQUE: Axial computed tomography images of the head/brain without intravenous contrast. CTDI is 37.12 mGy and DLP is 702.46 mGy-cm. Automated exposure control was utilized for the study. A dose lowering technique was utilized adhering to the principles of ALARA. COMPARISON: No relevant prior studies available. FINDINGS: No acute intracranial hemorrhage. No midline shift or mass effect. The territorial carney-white matter differentiation is maintained throughout. Age-related cerebral volume loss. Periventricular and subcortical white matter hypoattenuation, consistent with chronic microangiopathy. The visualized orbits appear grossly unremarkable. The calvarium is intact. The visualized paranasal sinuses and mastoid air cells are grossly clear. IMPRESSION: No acute intracranial hemorrhage, midline shift, or mass effect. Electronically signed by: Sang Avalos MD 09/28/23 22:52 PM Chest X-Ray 09/28/23 21:40 SINGLE VIEW CHEST CLINICAL HISTORY: Dyspnea. FINDINGS: An AP, portable, upright chest radiograph is compared to study dated 12/10/2022. Correlation is made with chest CT dated 11/30/2009. The examination is degraded by portable technique and apical lordotic positioning. The heart is enlarged noting atherosclerotic calcification of the thoracic aorta. The pulmonary vasculature is noncongested. Emphysema and chronic interstitial thickening is similar previous. Foci of parenchymal scarring are seen throughout both lungs. There are scattered calcified granulomas. No airspace consolidation or large pleural effusion is identified. No pneumothorax is seen. The skeletal structures are osteopenic. Arthritic change is noted in the shoulders. There are chronic/healed bilateral rib fractures. IMPRESSION: Cardiomegaly and emphysema with no acute cardiopulmonary abnormality identified. ACT 112: Negative or not required by law. Electronically signed by: Anibal Elder M.D. 09/28/2023 10:13 PM Discharge Plan Visit Data Chief Complaint: Illness Stated Complaint: EVAL, FAMILY TOOK OFF OF HOSPICE ED Provider: Jean Weems Discharge Problem: Change in mental status, COPD (chronic obstructive pulmonary disease), Chronic respiratory failure, Encephalopathy Discharge Instructions Interventions: ED Discharge Assessment Last Done: 09/28/23 22:55 Discharge Problem: Change in mental status Qualifiers: Altered mental status type: unspecified Qualified Code(s): R41.82 - Altered mental status, unspecified COPD (chronic obstructive pulmonary disease) Qualifiers: COPD type: unspecified COPD Qualified Code(s): J44.9 - Chronic obstructive pulmonary disease, unspecified Chronic respiratory failure Qualifiers: Respiratory failure complication: unspecified whether with hypoxia or hypercapnia Qualified Code(s): J96.10 - Chronic respiratory failure, unspecified whether with hypoxia or hypercapnia
[2023-09-28 20:13] LABS: Basophils # (auto) 0.04 K/uL (0.00-0.20); Basophils % (auto) 0.4 %; Eosinophils # (auto) 0.23 K/uL (0.00-0.50); Eosinophils % (auto) 2.4 %; Hemoglobin 11.7 g/dl (12.0-16.0); Immature Granulocytes # (auto) 0.06 K/uL (0.01-0.20); Immature Granulocytes % (auto) 0.6 %; Lymphocytes # (auto) 0.83 K/uL (1.20-3.40); Lymphocytes % (auto) 8.7 %; Mean Corpuscular Hemoglobin 29.1 pg (25.0-34.0); Mean Corpuscular Hgb Conc 31.6 g/dL (32.0-36.0); Mean Platelet Volume 9.6 fL (9.4-12.4); Monocytes # (auto) 1.13 K/uL (0.11-0.59); Monocytes % (auto) 11.9 %; Neutrophils # (auto) 7.23 K/uL (1.40-6.50); Platelet Count 287 K/uL (130-400); RDW Coefficient of Variation 12.5 % (11.5-14.5); RDW Standard Deviation 41.8 fL (36.4-46.3); Red Blood Count 4.02 M/uL (4.20-5.40); White Blood Count 9.52 K/ul (4.8-10.8)
[2023-09-28 20:27] LABS: Alanine Aminotransferase 15 U/L (7-52); Albumin Globulin Ratio 1.1 (0.9-2); Albumin Level 3.6 gm/dl (3.4-5.0); Alkaline Phosphatase 52 U/L (34-104); Anion Gap 8 (3-11); Aspartate Aminotransferase 30 U/L (13-39); BUN Creatinine Ratio 19.2 (10-20); Bilirubin,Total 0.4 mg/dl (0.2-1.0); Blood Urea Nitrogen 14 mg/dl (6-23); Calcium 8.9 mg/dl (8.6-10.3); Carbon Dioxide 33 mmol/L (21-32); Chloride 93 mmol/L (98-107); Est GFR (African American) 90.8 ml/min; Est GFR (Non-African American) 78.3 ml/min; Globulin 3.2 gm/dl (2.5-4.0); Glucose 108 mg/dl (70-99(Fasting)); Magnesium 1.7 mg/dl (1.7-2.4); Sodium 134 mmol/L (136-145); Total Protein 6.8 gm/dl (6.0-8.3)
[2023-09-28 20:38] LABS: Appearance Urine Cloudy (Clear); Bacteria Urine Automated Negative (Negative); Blood Urine 2+ (Negative); Color Urine Dark Yellow; Epithelial Cell Urine Auto >30 /lpf (0-5); Glucose Urine UA Negative (Negative); Ketones Urine 1+ (Negative); Leukocyte Esterase Urine Trace (Negative); Nitrite Urine Negative (Negative); Protein Urine 1+ (Negative); Specific Gravity Urine 1.024 (1.000-1.030); Urobilinogen Urine Negative (Negative); WBC Urine Automated >30 /hpf (0-5); pH Urine 5.5 (4.5-7.5)
[2023-09-28 20:48] LABS: Prothrombin Time 11.1 Seconds (9.0-12.0)
[2023-09-28 20:49] LABS: Bilirubin Urine 1+ (Negative); Cast Urine Automated >30 /lpf (0-5)
[2023-09-28] MEDS ORDERED: ALBUT/IPRATROP 3MG/0.5MG NEB 3 ML VIAL NEB STA (21:21)
[2023-09-28] MEDS ORDERED: methylPREDNISolone 125 MG/2 ML VIAL IV STA (21:21)
[2023-09-28 21:22] LABS: Mucus Urine Present (None Prsent); Renal Epithelial Cells Urine 0-5 /lpf (0-5)
[2023-09-28] MEDS ORDERED: CEFEPIME 2,000 MG/20 ML VIAL IV STA (21:44)
--- NOTE | 2023-09-28 22:14 | XRay Report ---
SINGLE VIEW CHEST CLINICAL HISTORY: Dyspnea. FINDINGS: An AP, portable, upright chest radiograph is compared to study dated 12/10/2022. Correlation is made with chest CT dated 11/30/2009. The examination is degraded by portable technique and apical l ordotic positioning. The heart is enlarged noting atherosclerotic calcification of the thoracic aorta . The pulmonary vasculature is noncongested. Emphysema and chronic interstitial thickening is similar previous. Foci of parenchymal scarring are seen throughout both lungs. There are scattered calcified granulomas. No airspace consolidation or large pleural effusion is identified. No pneumothorax is se en. The skeletal structures are osteopenic. Arthritic change is noted in the shoulders. There are chr onic/healed bilateral rib fractures. IMPRESSION: Cardiomegaly and emphysema with no acute cardiopulmonary abnormality identified. ACT 112: Negative or not required by law. Electronically signed by: Anibal Elder M.D. 09/28/2023 10:13 PM
[2023-09-28] MEDS ORDERED: traMADol HCL 50 MG TABLET PO PRN (22:54)
[2023-09-28] MEDS ORDERED: ALBUTEROL HFA 8 GM INHALER INH PRN (22:54)
--- NOTE | 2023-09-28 22:54 | CT Scan Report ---
Exam(s): CT HEAD Without Contrast EXAM: CT Head Without Intravenous Contrast CLINICAL HISTORY: Reason for exam: ams. TECHNIQUE: Axial computed tomography images of the head/brain without intravenous contrast. CTDI is 37.12 mGy and DLP is 702.46 mGy-cm. Automated exposure control was utilized for the study. A dose lowering technique was utilized adhering to the principles of ALARA. COMPARISON: No relevant prior studies available. FINDINGS: No acute intracranial hemorrhage. No midline shift or mass effect. The territorial carney-white matter differentiation is maintained throughout. Age-related cerebral volume loss. Periventricular and subcortical white matter hypoattenuation, consistent with chronic microangiopathy. The visualized orbits appear grossly unremarkable. The calvarium is intact. The visualized paranasal sinuses and mastoid air cells are grossly clear. IMPRESSION: No acute intracranial hemorrhage, midline shift, or mass effect. Electronically signed by: Sang Avalos MD 09/28/23 22:52 PM
--- NOTE | 2023-09-28 23:00 | History & Physical Report ---
Date of Service September 28, 2023 Assessment & Plan (1) Urinary tract infection: Plan: 78 F hospice patient with PMH of COPD on 4 L oxygen at baseline, anxiety, hypertension, CAD, and GERD who was admitted for AMS, difficulty breathing. Admitted for UTI, evaluation for discontinuation of hospice by palliative care. Urinary tract infection -UA: Trace leukocyte esterase, proteinuria, ketonuria, hematuria. Negative bacteriuria. Urine culture pending. -Afebrile, without leukocytosis. -S/p IV cefepime 2 g x 1 dose on admission. * Admit to MedSurg telemetry * IV cefepime 2 g every 12 hours. Await urine culture, nasal MRSA swab results * Trend CBC Change in mental status -Mostly nonverbal. Per daughter, is fully communicative at baseline. -CT head, CXR negative. -Urinary tract most likely source. * IV cefepime 2 g as above * Trend clinically for improvement COPD exacerbation -Increased oxygen requirement (5 L oxygen via nasal cannula) on arrival. -CXR negative. Audible wheezing on admission exam. -IV methylprednisolone 125 mg, DuoNeb nebulizer treatment ordered on admission. -Manage as acute exacerbation: * P.o. prednisone 40 mg daily x 4 days * DuoNeb every 4 hours x 24 hours, then as needed * Continue home regimen (umeclidinium/vilanterol, loratadine, fluticasone propionate, albuterol) Other Chronic Problems (hypertension, CAD, hyperlipidemia, GERD) * Continue home regimen Code: Full code. Daughter (Katrina) is medical POA [phone] Dispo: Med-Surg telemetry FEN/GI: Heart healthy (minced and moist) DVT Prophylaxis: Plavix 75 mg PT/OT: Yes Consults: Palliative care Case Management: Yes (2) Change in mental status: (3) Acute exacerbation of chronic obstructive pulmonary disease (COPD): (4) HTN (hypertension): (5) CAD (coronary artery disease): (6) Anxiety: Admission and Anticipated Discharge Date Admission Date: September 28, 2023 History of Present Illness Primary Care Provider: Juana Panchito Perez is a 78-year-old woman with history of COPD, GERD, osteoporosis, arthritis, anxiety, CAD, hypertension, hyperlipidemia, TIA, and current resident of retirement on hospice, who presented to the emergency room this afternoon after an episode of altered mental status and agitation. Patient is mostly nonverbal. In addition, ED documentation of the encounter is bare as of the writing of this note. Spoke to daughter over the phone, who noted that mom was last oriented on Wednesday. She was planning to bring her home on Wednesday, and she typically does. However, following the conversation, she noted that her mom "could not even recognize me." Mom also apparently was agitated and not oriented to her surroundings. Per daughter, she received antibiotics (cannot recall) and 5 mg of morphine, after which she became incontinent, which is unusual for her. She pleaded with send care staff to treat her COPD but they declined as she was on hospice. Daughter, who has medical power of [employer] attorney, was not aware that she could not receive active care while in hospice, so she requested that her mom be taken off of hospice, and brought to the emergency room for evaluation. In the ED, she was saturating at 93% on 5 L nasal cannula (baseline appears to be 4 L on review of chart). RR-22 breaths/min. Rest of vitals normal. No leukocytosis on CBC (WBC-9.52). No electrolytic derangements or abnormal LFTs on CMP. UA did reveal trace leukocyte esterase (as well as 1+ proteinuria, 1+ ketonuria, 2+ hematuria nitrites negative). Hospitalist service was then consulted for admission. On admission, patient appeared to be audibly wheezing at bedside. She was also mostly nonverbal (yes/no answers only) and appeared to be oriented only to self. On review of her recent orders, she had not been ordered any nebulizer therapy/IV steroids/antibiotics these were ordered at bedside. Workup for patient's altered mental status was also not ordered. These were also ordered with general admission orders and are pending as of the writing of this note. Allergies Allergy/AdvReac Type Severity Reaction Status Date / Time metoclopramide Allergy Severe "lungs Verified 12/10/22 16:01 collapsed" cortisone Allergy Intermediate swelling Verified 12/10/22 16:01 salicylates Allergy Intermediate caused Verified 12/10/22 16:01 bleeding, can take EC aspirin Corticosteroids AdvReac Intermediate swelling Verified 12/10/22 16:01 (Glucocorticoids) Home Medications Medication Instructions Recorded Confirmed Type clopidogrel 75 mg tablet (Plavix) 75 mg PO QAM 08/15/19 09/28/23 History cyanocobalamin (vitamin B-12) 500 500 mcg sublingual QAM 08/15/19 09/28/23 History mcg sublingual tablet escitalopram oxalate 5 mg tablet 5 mg PO QAM 08/15/19 09/28/23 History (Lexapro) ferrous sulfate 325 mg (65 mg 325 mg PO QAM 08/15/19 09/28/23 History iron) tablet sucralfate 1 gram tablet (Carafate) 1 g PO BID 12/02/19 09/28/23 History pantoprazole 40 mg tablet,delayed 40 mg PO DAILY 12/04/19 09/28/23 History release (Protonix) diltiazem HCl 60 mg 60 mg PO QAM 02/17/22 09/28/23 History capsule,extended release 12 hr protein supplement 1 ea PO QPM 04/27/22 09/28/23 History Lactobacillus acidophilus 1 tab PO BID 10/22/22 09/28/23 History Saccharomyces boulardii 250 mg 500 mg PO BID 10/22/22 09/28/23 History capsule acetaminophen 325 mg tablet 650 mg PO Q6 PRN pain 1-4/FEVER 10/22/22 09/28/23 History (Tylenol) >100 albuterol sulfate 90 mcg/actuation 2 puff inhalation Q12 PRN 10/22/22 09/28/23 History aerosol inhaler Shortness Of Breath Or Wheezing guaifenesin 600 mg tablet, 600 mg PO Q12 10/22/22 09/28/23 History extended release 12 hr diclofenac sodium 1 % topical gel 4 g EXT QID 12/10/22 09/28/23 History (Voltaren Arthritis Pain) prednisone 10 mg tablet 10 mg PO QAM 12/10/22 09/28/23 History albuterol sulfate 2.5 mg/3 mL 2.5 mg inhalation .EVERY 2 HOURS 09/28/23 09/28/23 History (0.083 %) solution for nebulization PRN SOB/wheeze albuterol sulfate 2.5 mg/3 mL 2.5 mg inhalation QID 09/28/23 09/28/23 History (0.083 %) solution for nebulization atropine sulfate (PF) 1 % eye 3 drp .EVERY 1 HOUR PRN increased 09/28/23 09/28/23 History drops in a dropperette secretions budesonide 160 mcg-glycopyr 9 2 inh inhalation BID 09/28/23 09/28/23 History mcg-formot 4.8 mcg/actuation HFA inhaler (Breztri Aerosphere) buspirone 7.5 mg tablet 7.5 mg PO TID 09/28/23 09/28/23 History ceftriaxone 1 gram solution for 1 g IM QPM 09/28/23 09/28/23 History injection clonazepam 0.5 mg tablet 0.5 mg PO BID 09/28/23 09/28/23 History estradiol 0.01% (0.1 mg/gram) 1 applic vaginal [id number] 09/28/23 09/28/23 History vaginal cream famotidine 20 mg tablet 20 mg PO AMHS 09/28/23 09/28/23 History fentanyl 12 mcg/hr transdermal 1 patch transdermal [id number] 09/28/23 09/28/23 History patch fluticasone propionate 50 2 spray intranasal QAM 09/28/23 09/28/23 History mcg/actuation nasal spray,suspension gabapentin 300 mg capsule 300 mg PO TID 09/28/23 09/28/23 History guaifenesin 100 mg/5 mL oral liquid 300 mg PO Q4H PRN Cough 09/28/23 09/28/23 History lidocaine HCl 10 mg/mL (1 %) 2.1 ml IM QPM 09/28/23 09/28/23 History injection solution loratadine 10 mg tablet 10 mg PO QAM 09/28/23 09/28/23 History lorazepam 0.5 mg tablet 0.5 mg PO .EVERY 1 HOUR PRN 09/28/23 09/28/23 History restlessness/agitaion morphine concentrate 100 mg/5 mL 10 mg PO .EVERY 30 MINUTES PRN 09/28/23 09/28/23 History (20 mg/mL) oral solution pain 9-10/SOB morphine concentrate 20 mg/mL oral 5 mg PO QID 09/28/23 09/28/23 History syringe (FOR ORAL USE ONLY) nystatin 100,000 unit/mL oral 5 ml PO QID 09/28/23 09/28/23 History suspension ondansetron HCl 4 mg tablet 4 mg PO Q6 PRN N/V 09/28/23 09/28/23 History oxycodone 10 mg tablet 10 mg PO Q6H PRN pain 5-8 09/28/23 09/28/23 History oxymetazoline 0.05 % nasal spray 2 spray intranasal Q12H PRN 09/28/23 09/28/23 History (Afrin (oxymetazoline)) epistaxis rosuvastatin 20 mg tablet 20 mg PO HS 09/28/23 09/28/23 History Past Med/Surg History Medical History residential resident resident of [facility] TIA (transient ischemic attack) History of GI bleed History of anemia History of esophageal dilatation Diarrhea Difficulty swallowing PVD (peripheral vascular disease) GERD (gastroesophageal reflux disease) Osteoporosis Arthritis Anxiety SOB (shortness of breath) on exertion Chronic obstructive pulmonary disease OXYGEN 3-4 L/MIN CONTINUOUSLY CAD (coronary artery disease) F/U DR Angélica LEONARDO Hyperlipidemia Hypertension History of esophageal stricture Asymptomatic bilateral carotid artery stenosis "s/p bilateral carotid endarterectomy" Surgical History H/O vascular surgery RIGHT ILIAC ARTERY STENT PLACEMENT H/O knee surgery History of appendectomy History of esophagogastroduodenoscopy (EGD) History of colonoscopy History of cataract surgery R/L H/O hemorrhoidectomy H/O carotid endarterectomy R/L History of cardiac cath NO STENTS Family History Other No family history of adverse response to anesthesia Social History Smoking Status: Former smoker Age Started Using Tobacco: 19; packs per day: 2; Cigarettes Per Day: 5-10 CIG a day ADVISED; Do You Dip or Chew Tobacco: Yes; Hx Alcohol Use: No Hx Substance Use: No Preferred Language: Faroese Communication Ability: Impaired Stone Cleaner Required: No Beliefs That Will Affect Care: None marital status: / Current Living Situation: Family Current Living Situation Comment: [facility] How many Children do You have: 1 Other Information That Helps Us Care for You: No Feels Safe at Home: Yes Assistive Devices: Oxygen - Continuous and Walker Review of Systems Review of Systems: All systems reviewed & are unremarkable except as noted in HPI & below Physical Exam Physical Exam: General: No acute distress HEENT: PERRLA. Normal conjunctiva, anicteric sclera. Oral mucosa dry. Respiratory: Diffuse wheezes and crackles heard on auscultation in all lung saucedo. Cardiovascular: RRR without murmurs, gallops, or rubs. No pedal edema. GI: Nontender x4 quadrants Neuro: Oriented to self only. Mostly nonverbal but follows basic instructions Results & Data Results & Data Vital Signs (Past 12 Hours) Vital Signs Temp Pulse Resp BP Pulse Ox O2 Del Method O2 Flow Rate 09/28/23 21:18 88 09/28/23 19:09 94 Nasal Cannula 5 09/28/23 17:16 108 H 09/28/23 17:09 36.8 C 106 H 22 121/66 98 Nasal Cannula 4 Supervising Physician Co-Signing Physician Notes Attending addendum: I have physically seen this patient, have supervised the medical residents activities, and agree with the H&P unless as otherwise noted. Assessment and Plan: Increased confusion and decreased responsiveness-as relayed per her daughter CT head negative Treat urinary tract infection and COPD exacerbation, and follow response Urinary tract infection- Follow urine culture and sensitivity Empiric cefepime 2 g IV every 12 hours COPD exacerbation- On baseline 4 oxygen at home, presently 5 L in the ED Negative chest x-ray Received methylprednisolone 125 mg IV in ED and a DuoNeb treatment Methylprednisolone 40 mg IV every 8 hours Duonebs every 4 hours while awake and every 2 hours when necessary. Continue usual inhalers, umeclidinium/vilanterol loratadine, fluticasone and albuterol Remaining orders and notations as noted Resident Activity Tracking Resident Involvement: Resident Care Provided Care Provided: Adult Hospital Medicine (1) Urinary tract infection Hematuria presence: with hematuria Urinary tract infection type: site unspecified Qualified Code(s): N39.0 - Urinary tract infection, site not specified; R31.9 - Hematuria, unspecified (2) Change in mental status Altered mental status type: unspecified Qualified Code(s): R41.82 - Altered mental status, unspecified (4) HTN (hypertension) Hypertension type: primary hypertension Qualified Code(s): I10 - Essential (primary) hypertension
[2023-09-29] MEDS: ALBUT/IPRATROP 3MG/0.5MG NEB 3 ML VIAL NEB SCH ×6 (02:15→19:23)
[2023-09-29 05:58] LABS: Hemoglobin 11.6 g/dl (12.0-16.0); Mean Corpuscular Hemoglobin 29.5 pg (25.0-34.0); Mean Corpuscular Hgb Conc 33.1 g/dL (32.0-36.0); Mean Corpuscular Volume 89.1 fL (80.0-100.0); Mean Platelet Volume 9.9 fL (9.4-12.4); Platelet Count 279 K/uL (130-400); RDW Coefficient of Variation 12.4 % (11.5-14.5); RDW Standard Deviation 40.7 fL (36.4-46.3); Red Blood Count 3.93 M/uL (4.20-5.40); White Blood Count 7.43 K/ul (4.8-10.8)
[2023-09-29 06:12] LABS: Anion Gap 14 (3-11); BUN Creatinine Ratio 26.4 (10-20); Blood Urea Nitrogen 19 mg/dl (6-23); Carbon Dioxide 28 mmol/L (21-32); Chloride 93 mmol/L (98-107); Est GFR (African American) 92.3 ml/min; Est GFR (Non-African American) 79.7 ml/min; Glucose 215 mg/dl (70-99(Fasting)); Magnesium 1.8 mg/dl (1.7-2.4); Potassium 3.7 mmol/L (3.5-5.1); Sodium 135 mmol/L (136-145)
--- OUTSIDE RECORDS SUMMARY | 2023-09-29 07:15 | External Medical Summary | Summary of Care ---
Author Name Unknown Organization [facility] Address [address] [place] [address] Phone [phone] Care Team Providers Care Kitchenhand Name Role Phone Marguerite SERRA MD, Moiz Mcmanus Primary Care Pr ovider Reason for Visit * Reason Onset Date Comments Med Request 09/10/2023 Questions Encounter Details Date Type Department Care Team (Late st Contact Info) Description 09/10/2023 Telephone Sleep Disorders Ctr [facility] [address] [place] [address] Services, Scheduling [address] [place] [address] Med Request (Questions) Allergies Active Allergy Reactions Criticality Noted Date Comments Cortisone Edema Other High 08/15/2002 Corticosteriods Other reaction(s): swelling Metoclopramide High 02/19/2022 Other reaction(s): "lungs collapsed" Other Allergy (See Comments) High 02/19/2022 Other reaction(s): swelling Metoclopramide Hcl Neuro complications (Please comment) Low 05/28/2010 Lip quivering Salicylates Low 02/19/2022 Other reaction(s): caused bleeding, can take EC aspirin documented as of this encounter (statuses as of 09/28/2023) Medications Medication Sig Dispensed Refills Start Date End Date Status Mometasone Furoate 50 MCG/ACT nasal sprayIndications:Chr onic rhinitis INHALE TWO SPRAYS PER NOSTRIL ONCE A DAY 1 Inhaler 5 04/10/2016 Active Nebulizers (NEBULIZER COMPRESSOR) MISCIndications:Toba senior gl accountant use disorder,Hypoxemia,C OPD, severe (HCC),COPD, moderate (HCC) Inhale via nebulizer. Use as directed. 1 Each 1 01/18/2017 Active Incontinence Supply Disposable (DEPEND UNDERWEAR SM/MED) MISCIndications:Urin katharine incontinence, unspecified type use as directed. 32 Each 11 05/20/2017 Active Lactobacillus (FLORANEX) TABSIndications:Clos tridium difficile colitis Take 1 Each by mouth 2 times a day. 180 Tab 3 05/10/2020 Active Cyanocobalamin (B-12 MICROLOZENGE) 500 MCG SUBL Take 1 Tab by mouth daily. 90 Tab 1 05/10/2020 Active Vitamin D, Cholecalciferol, 50 MCG (2000 UT) CAPS Takes one by mouth daily 90 Cap 2 05/10/2020 Active famotidine (PEPCID) 20 MG Tablet Take 1 Tab by mouth 2 times a day. 60 Tab 11 05/10/2020 Active Rosuvastatin Calcium 20 MG Oral Tablet (Crestor)Indications :Hyperlipidemia with target LDL less than 70 TAKE ONE TABLET BY MOUTH DAILY 90 Tab 3 04/25/2021 Active clonazePAM 0.5 MG Oral Tablet (KlonoPIN)Indication s:Restless legs syndrome TAKE 1 TABLET BY MOUTH 3 TIMES A DAY FOR LEG PAIN AND RESTLESS LEG. MAXIMUM 3 TABLETS DAILY 90 Tablet 0 02/06/2022 Active guaiFENesin 100 MG/5ML Oral Liquid (Robitussin) Take by mouth 10 mL before bedtime. 1000 mL 1 04/24/2022 Active Nicotine 21 MG/24HR Transdermal Patch 24 Hour (Nicoderm CQ) 21 mg . 0 03/31/2022 Active Sucralfate 1 GM Oral Tablet Take 1 Tablet by mouth in the morning and 1 Tablet before bedtime. 0 Active Bisacodyl 10 MG Rectal Suppository Administer 1 Suppository into the rectum in the morning. 0 Active Fleet Enema Rectal Enema Administer into the rectum . 0 Active [facility] Muscle Rub 4-10-30 % External Cream (Gsllhzl-Gdtcmir-Kgr hyl Devin)Indications:Pain Apply topically to affected area . Apply to topically 0 Active Pantoprazole Sodium 40 MG Oral Tablet Delayed Release (Protonix) Take 1 Tablet by mouth in the morning. 0 Active Saccharomyces boulardii 250 MG Oral Packet Take by mouth . Give 2 capsules by mouth two times a day for GI distress. 0 Active Tylenol 325 MG Oral Capsule (Acetaminophen) Take by mouth . Give two tablets every six hours as needed for fever 0 Active oxygen IN GASIndications:Hypox emia,COPD, moderate (HCC) 3 LPM via NC while awake, 2 LPM during sleep, maintain sats 90-94% 1 Each 0 09/09/2022 Active busPIRone HCl 7.5 MG Oral Tablet (Buspar) 0 12/21/2022 Acti ve Clopidogrel Bisulfate 75 MG Oral Tablet (pLAVix) 0 12/21/2022 Active Diclofenac Sodium 1 % External Gel (Voltaren) 0 12/15/2022 Active dilTIAZem HCl 60 MG Oral Tablet (Cardizem) 0 12/21/2022 Active Escitalopram Oxalate 5 MG Oral Tablet (Lexapro) 0 12/21/2022 Active Potassium Chloride 20 MEQ Oral Packet 0 12/16/2022 Active fentaNYL 12 MCG/HR Transdermal Patch 72 Hour (Duragesic) Place 1 Patch topically on the skin every 3 days. 0 Active Ferrous Sulfate 325 (65 Fe) MG Oral Tablet (Feosol) Take 1 Tablet by mouth daily with breakfast. 0 Active Lidocaine 4 % External Patch (Aspercreme) Place 1 Patch topically on the skin daily. 0 Active Loratadine 10 MG Oral Capsule Take 1 Capsule by mouth in the morning. 0 Active oxyCODONE HCl 10 MG Oral Tablet (Roxicodone) Take 1 Tablet by mouth every 8 hours as needed. 0 Active predniSONE 10 MG Oral Tablet (Deltasone) Take 1 Tablet by mouth in the morning. 0 Active Ondansetron HCl 4 MG Oral Tablet (Zofran) Take 1 Tablet by mouth every 6 hours as needed. 0 Active Gabapentin 300 MG Oral Capsule (Neurontin) Take 1 Capsule by mouth in the morning. 0 Active Budeson-Glycopyrrol- Formoterol 160-9-4.8 MCG/ACT Inhalation Aerosol 2 doses inhaled through spacer twice a day. Rinse mouth after use. 10.7 g 11 09/10/2023 Active Spacer/Aero-Holding Chambers Device Use with Breztri and albuterol HFA 1 Each 0 09/10/2023 Active Albuterol Sulfate (2.5 MG/3ML) 0.083% Inhalation Nebulization Solution (Proventil) 1 vial inhaled via nebulizer 4 times a day. Can repeat 1 vial after 2 hours if needed. 720 mL 11 09/10/2023 Active documented as of this encounter (statuses as of 09/28/2023) Active Problems Problem Noted Date Diagnosed Date COPD with chronic bronchitis and emphysema 05/29 Chronic respiratory failure with hypoxia and hyp ercapnia 05/29/2019 Bilateral carotid artery occlusion 05/29/2019 COPD, group D, by GOLD 2017 classification 09/07 Controlled substance agreement signed 08/03/2018 Anxiety state 07/01/2018 Centrilobular emphysema 01/24/2018 Pulmonary granuloma 01/24/2018 Schatzki's ring 05/20/2015 Tobacco use disorder 02/06/2015 Overview: Very heavy smoker now 1 PPD. Wilks snot want to quit, states this is something she enjoys and gets a lot of pleasure. HTN, goal below 140/90 01/08/2015 PVD (peripheral vascular disease) 01/17/2014 Sinus tachycardia 11/16/2012 Idiopathic torsion dystonia 10/07/2012 Hyperlipidemia with target LDL less than 70 01/23 Overview: ICD-10 update of inactive term ASCVD (arteriosclerotic cardiovascular disease) 06/08/2008 Overview: Bilateral carotid endarectomy Sep 02 & Nov Esophageal reflux 01/24/2008 Senile osteoporosis 08/14/2003 documented as of this encounter (statuses as of 09/28/2023) Resolved Problems Problem Noted Date Diagnosed Date Resolved Date Non-traumatic compression fr acture of T12 thoracic vertebra 02/24/2018 01/13/2019 Carotid disease, bilateral 02/08/2017 0 05/29/2019 C. 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 09/01/2017 Gastroparesis 05/28/2010 09/01/2017 Chronic hypoxemic respiratory failure 01/29/2010 01/13/2019 Overview: 06/10/12 -- pt requested to switch back to cylinders from concentrator 04/01/10 -- 2 LPM with exertion and 3 LPM during sleep AHP Esophageal stricture 01/07/2010 018 HTN, goal below 130/80 09/02/200901/08 Carotid stenosis, non-symptomatic 04/11/2009 01/13/2019 Overview: Modified per Carotid Stenosis protocol #10 Cough 01/04/2009 12/20/2009 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 08/03/2008 09/01/2017 Contusion of wrist 05/15/2008 0 Routine medical exam 01/24/2008 010 HTN, goal below 140/90 01/24/200809/02 Elevated blood pressure, situational 04/20/2007 09/23/2007 COPD exacerbation 04/20/2007 12/20/2009 Shortness of breath 04/20/2007 01/24/20 08 COPD, severity to be determined 02/02/2005 07/20/2011 Overview: PFT 12/19/09: FVC 104%, FEV1 78%, FEV1/FVC 74%, MVV 54%, RV 174%, TLC 134%, DLCO 33% Cough 02/02/2005 01/24/2008 DYSFUNCT EUSTACHIAN TUBE 02/02/2005 Chronic rhinitis 02/02/2005 09/01/2017 COPD, severe 02/02/2005 07/01/2018 Acute bronchitis, antibiotics not indicated 01/19/2005 04/20/2007 OBST CHRNIC BRNCH W/ ACUT EXAC 01/19/2005 04/20/2007 Tobacco use disorder 01/19/2005 012 Myalgia and myositis 01/19/2005 008 Carotid Stenosis, non-symptomatic 04/11/2009 Overview: Modified per Carotid Stenosis protocol #10 documented as of this encounter (statuses as of 09/28/2023) Immunizations Name Administration Dates Next Due COVID-19 mRNA, LNP-s, No Pre serve, 2-Dose Series (Pfizer) 08/27/2021,12/19/2020,11/28/2020 Pneumococcal Conjugate Vacc, 13 Valent (Prevnar) 07/10/2015 Pneumococcal Polysaccharide PPV23 (Pneumovax) 09/01/2017,04/20/2007 SEASONAL INFLUENZA, PF, 6 M & Above, IM , (FLULAVAL or FLUZONE) 07/27/2022,07/17/2020,07/20/2019,04/2018,07/30/2017 07/01/2019 Seasonal Influenza, Quadriva lent Hd (Fluzone Hd) 07/09/2021 Seasonal Influenza, Quadriva lent, No Preserve, IM 09/09/2016 Seasonal Influenza, Split, I IV3, With Preserve, Inj 07/10/2015,08/01/2014,07/07/2013,06/25,07/06/2011,07/14/2010,07/18/20 09,08/30/2008,08/17/2007 TDAP (age 11 and older)(Adacel) 04/19/2008 Varicella Zoster Vaccine (Adult) 10/07/2012 documented as of this encounter Social History Tobacco Use Types Packs/Day Years Used Date Smoking Tobacco: Former Cigarettes 1 64 Q uit: 04/24/2022 Smokeless Tobacco: Never Alcohol Use Standard Drinks/Week Comments Yes 0 (1 standard drink = 0.6 oz pur e alcohol) 1 beer weekly PHQ-2 Answer Date Recorded PHQ Adult Total Score 0 01/15/2021 Hunger Vital Sign Answer Date Recorded Worried About Running Out of Food in the Last Ye ar Never true 10/24/2019 Ran Out of Food in the Last Year Never true 10/24/2019 Sex and Gender Information Value Date Recorded Sex Assigned at Female 01/13/2019 12:31 PM EDT Gender Identity Female 01/13/2019 12:31 PM EDT Sexual Orientation Straight 01/13/2019 12 :31 PM EDT Job Start Date Occupation Industry Not on file Not on file Not on file documented as of this encounter Miscellaneous Notes * Telephone Encounter - Yanci West LPN - 09/28/2023 11:09 AM EST LM for Gabriela (at number provided) asking pt to return call. * Telephone Encounter - Yanci West LPN - 09/21/2023 10:10 AM EST Left another message for Gabriela at the number provided. * Telephone Encounter - Claribel Guerrero LPN - 09/13/2023 1:32 PM EST Left a message for the pt to return phn call to the office. * Telephone Encounter - Dov Ladd OSA - 09/10/2023 5:03 PM EST Gabriela returning missed call. She wanted to verify the pt's exact prescription orders and the directions- (strength of nebulizer, how many times per day, etc) Please call back at earliest convenience. * Telephone Encounter - Claribel Melissa CMA - 09/10/2023 3:00 PM EST LM to return call * Telephone Encounter - Vnaita Betancur OSA - 09/10/2023 12:59 PM EST Gabriela from [facility] in [place] where the patient resides is calling in with some medicationquestions for Aishwarya Jacobo and is asking for a call back. Please call her at [phone] Please Advise. documented in this encounter Plan of Treatment Upcoming Encounters Date Type Department Care Team (Late st Contact Info) Description 12/24/2023 11:00 AM EST Office Visit Sleep Disorders Ctr [facility] [address] [place] [address] Aishwarya Jacobo CRNP [address] [place] [id number] Health Maintenance Due Date Last Done Comments Albumin/Creatinine Ratio 1963 Hepatitis C Screening 1963 Zoster Vaccines (2 of 3) 12/02/2012 10/07/2012 DTaP,Tdap,and Td Vaccines (2 - Td or Tdap) 04/19/2018 04/19/2008 Depression Screening 01/15/2022 01/15/2021 GFR 03/03/2023 03/03/2022, 03/27, 01/15/2021, Additional history exists COVID-19 Vaccine ( - season) 2023 08/27/2021, 12/19/2020, 11/28/2020 Influenza Vaccine (FLU shot) (#1) 2023 07/27/2022, 07/09/2021, 07/17/2020, Additional history exists O2 ASSESSMENT COMPLETED IN PAST YEAR FOR COPD 09/10/2024 09/10/2023 DXA Scan 03/01/2025 03/01/2023, 05/25, 05/09/2018, Additional history exists Pneumococcal Vaccine: 65+ Years Completed 09/01/2017, 07/10/2015, 04/20/2007 Alpha-1 Antitrypsin Completed 07/17/2020 VITAMIN D LEVEL ONCE IN A LIFETIME-USE SMARTSET# 70050 Completed 04/23/2021, 07/17/2020, 08/24/2019, Additional history exists LUNG CANCER SCREENING - USE SMARTSET 19709 Completed 04/25/2021, 01/20/2021, 06/22/2019, Additional history exists GARDASIL-HPV IMMUNIZATION SERIES Aged Out No longer eligible based on patient's age to complete this topic Hepatitis B Aged Out No longer eligi ble based on patient's age to complete this topic MENINGOCOCCAL (MENACTRA/MENVEO) Aged Out No longer eligible based on patient's age to complete this topic documented as of this encounter Medical Devices Implanted Type Area Political Analyst Device Identifier Shelf Expiration Date Model / Serial / Lot Stent Assurant [id number] - [id number] Implanted:Qty: 1 on 06/22/2014 at OR [facility] Right: Iliac [employer] : VASCULAR 12/07/2015 [id number] / / [id number] documented as of this encounter Advance Directives Latest Code Status on File Code Status Date Activated Date Inactivated Comments Full Code 06/22/2014 1:40 PM 06/23/2014 1:30 PM Question Answer Comments Discussion of Advance Direct myles occurred with: Not Discussed Does the patient have a Living Will? No Does the patient have Health Care Power of Supervisor Machine Workers? No Healthcare Agents on File Name Relationship Healthcare Agent Relationship Communication Sussy Lui Other - (no specific identity) Second Alternate Health Care Agent Katrina Nichols Adult Child Power of Supervisor Machine Workers Care Teams Kitchenhand Relationship Specialty Start Date End Date Moiz Everett III, MD [address] [place], [place] [address] [address] PCP - General Internal Medicine 09/09/22 documented as of this encounter
[2023-09-29] MEDS ORDERED: predniSONE 20 MG TAB PO SCH (09:00)
[2023-09-29] MEDS: FLUTICASONE FUROATE 200MCG 14 PUFFS/INHALER INH SCH (09:34)
[2023-09-29] MEDS: UMECLIDINIUM/VILANTEROL 62.5/25MCG 7 PUFFS/INHALER INH SCH (09:34)
[2023-09-29] MEDS: SACCHAROMYCES BOULARDII 250 MG CAP PO SCH ×2 (09:36→20:54)
[2023-09-29] MEDS: SUCRALFATE 1 GM TAB PO SCH ×2 (09:36→20:54)
[2023-09-29] MEDS: ADVANCED PROBIOTIC 1250 MG CAPSULE PO SCH ×2 (09:37→20:54)
[2023-09-29] MEDS: LORATADINE 10 MG TAB PO SCH (09:37)
[2023-09-29] MEDS: ESCITALOPRAM OXALATE 10 MG TAB PO SCH (09:38)
[2023-09-29] MEDS: busPIRone 7.5 MG TAB PO SCH ×3 (09:38→20:54)
[2023-09-29] MEDS: dilTIAZem HCl 60 MG TAB PO SCH (09:39)
[2023-09-29] MEDS: CLOPIDOGREL BISULFATE 75 MG TAB PO SCH (09:39)
[2023-09-29] MEDS: CYANOCOBALAMIN (B-12) 500 MCG TABLET PO SCH (09:39)
[2023-09-29] MEDS: GABAPENTIN 300 MG CAP PO SCH ×3 (09:40→20:54)
[2023-09-29] MEDS: FLUTICASONE PROPIONATE NA SPR 16 GM BTL NAE SCH (09:41)
[2023-09-29] MEDS: FERROUS SULFATE 325 MG TAB PO SCH (09:41)
[2023-09-29] MEDS: FAMOTIDINE 20 MG TAB PO SCH ×2 (09:41→20:54)
[2023-09-29 09:48] LABS: Base Excess ABG 7.4 mEq/L (-9-1.8); HCO3 ABG 31 mmol/L (19-24); Oxygen Saturation ABG 97.6 % (90-95); PCO2 ABG 40 mmHg (35-46); PO2 ABG 74 mmHg (80-95)
[2023-09-29 09:50] LABS: Allen Test Pos (Pos)
[2023-09-29] MEDS ORDERED: CEFEPIME 2,000 MG in SYRINGE 0 ML IV SCH (10:00)
[2023-09-29] MEDS: DICLOFENAC SOD 1% GEL 100 GM TUBE EXT SCH ×4 (10:19→20:54)
[2023-09-29] MEDS: cefTRIAXone SODIUM 1,000 MG in DEXTROSE 5 % MINI-B 50 ML IV SCH (10:20)
[2023-09-29] MEDS: COLESTIPOL HCL 1 GM TAB PO SCH ×3 (10:20→23:30)
--- NOTE | 2023-09-29 15:34 | Electrocardiogram Report ---
Test Reason : Blood Pressure : / mmHG Vent. Rate : 105 BPM Atrial Rate : 105 BPM P-R Int : 132 ms QRS Dur : 074 ms QT Int : 354 ms P-R-T Axes : 057 044 075 degrees QTc Int : 467 ms Sinus tachycardia Otherwise normal ECG When compared with ECG of 22-OCT-2022 22:25, No significant change was found Confirmed by Morales Calderon ([id number]) on 09/29/2023 3:34:18 PM [facility] Confirmed By:Morales Calderon
--- NOTE | 2023-09-29 15:58 | Communication Note ---
Date of Service: September 29, 2023 Palliative Medicine Brief Note Consult received/appreciated and chart reviewed. An inpatient Palliative Medicine consult was requested for "Long-term care planning." LTC planning can be accomplished via care mgt. She was on hospice at [facility] and POA did not appear to be in agreement nor alignment what hospice plan of care. There are no available records from hospice to review, no clear indiction if hospice had any discussions or IDT reviews with patient's family/POA re plan of care on hospice. Recommend speaking with hospice agency from [facility] and obtaining the relevant notes to see what communications transpired between them and family/POA. If assistance with a family meeting and primary teams is needed, I would be hap py to join and assist with this conversation, scheduling for same deferred to primary team and care mgt. Palliative medicine is not in hospital on - this is outpatient clinic med day. Returning Wednesday and available times for family meetings 1130, 1230, 130, 230 at this time. Alternatively, pt and family can be seen in outpatient clinic if a longer, more longitudinal relationship is warranted. Palliative Med outpatient clinic is on in [facility]. Patient Not Seen, NO charge submitted TS 25min Thank you for allowing us to participate in the ongoing care of this patient. Please don't hesitate to call or page with any additional concerns. Dr. Crystal Briggs DNP Director, Palliative Care
--- NOTE | 2023-09-29 16:42 | Hospitalist Progress Note ---
Date of Service September 29, 2023 Assessment & Plan (1) Change in mental status: Plan: delirium - etiology likely multifactorial - hard to rule out UTI (see below), COPD factors (seems less likely given low pCO2 but possible) or other -seems to be better today than what she appears to have been yesterday -ongoing reorientation/supportive care/vigilance. will try to glean better idea of baseline from family (2) COPD (chronic obstructive pulmonary disease): Plan: hard to r/o exac as cause of delirium, but at the same time no overt dyspnea, only on 4L (?baseline - will try to determine) and pCO2 low for her - so if it was exac - was probably short lived and mild. no clear role for further acute treatment; continue chronic management (3) Urinary tract infection: Plan: endorses some degree of dysuria - was on cefepime. given no severe sepsis/septic shock - narrow to ceftriaxone and follow/follow cultures (4) DVT prophylaxis: Plan: lovenox (5) Discharge planning issues: Plan: revsiting overall plan of care/goals of care, came from SNF, anticipate return to SNF Admission and Anticipated Discharge Date Admission Date: September 28, 2023 Subjective awake and talkative - seems easily confused but at least seems able to give proximal HPI. not really aware where she is - [facility] [employer] but unable to state that she's in the hospital. cannot recall yesterday's events. denies sob. loosely endorses some degree of dysuria. denies pain. dtr not present at bedside - will try to reach her in person/by phone later today Review of Systems Review of Systems: All systems reviewed & are unremarkable except as noted in HPI & below Physical Exam Physical Exam: gen awake and pleasant but seems disoriented nad. heent nc at mmm. lungs diminished air entry throughout but faint wheeze no rhonchi no rales no accessory muscles no convesrational dyspnea good effort. abd soft nd nt. ext no c/c. Results & Data Results & Data Vital Signs (Past 12 Hours) Vital Signs Temp Pulse Pulse Resp BP BP Pulse Ox 09/29/23 15:21 97.5 F L 89 18 109/62 93 09/29/23 15:11 09/29/23 14:00 96 H 18 93 09/29/23 14:00 123/58 L 09/29/23 13:00 102 H 20 92 09/29/23 13:00 116/58 L 09/29/23 12:00 107 H 16 92 09/29/23 12:00 109/64 09/29/23 11:53 106 H 22 115/61 95 09/29/23 11:13 102 H 18 95 09/29/23 11:13 115/61 09/29/23 11:00 92 H 21 94 09/29/23 08:04 103 H 17 92 09/29/23 07:59 105 H 09/29/23 06:00 94 H 18 132/66 96 09/29/23 05:40 105 H 19 93 09/29/23 05:30 108 H 18 97 09/29/23 05:20 104 H 18 100 09/29/23 05:10 104 H 18 91 09/29/23 05:00 105 H 18 97 09/29/23 05:00 139/74 09/29/23 04:50 105 H 17 98 09/29/23 04:40 106 H 21 98 09/29/23 04:30 107 H 16 96 O2 Del Method O2 Flow Rate 09/29/23 15:21 Nasal Cannula 4 09/29/23 15:11 Nasal Cannula 4 09/29/23 14:00 09/29/23 14:00 09/29/23 13:00 09/29/23 13:00 09/29/23 12:00 09/29/23 12:00 09/29/23 11:53 Oxymask 4 09/29/23 11:13 09/29/23 11:13 09/29/23 11:00 09/29/23 08:04 Oxymask 4 09/29/23 07:59 09/29/23 06:00 Oxymask 4 09/29/23 05:40 Oxymask 4 09/29/23 05:30 Oxymask 4 09/29/23 05:20 09/29/23 05:10 09/29/23 05:00 Oxymask 4 09/29/23 05:00 09/29/23 04:50 09/29/23 04:40 Oxymask 4 09/29/23 04:30 Oxymask 4 PG Care Time/CCT Total # of Minutes Spent Total Time Spent with Patient: Total time spent is greater than 50% in coordination of care (as documented) at patient's floor/unit and/or counseling patient: Coding Level of Care Code 69257 SUB INP/OBS CARE MIN Diagnoses Altered mental status, unspecified altered mental status type R41.82 Altered mental status type: unspecified COPD (chronic obstructive pulmonary disease) J44.9 Urinary tract infection with hematuria, site unspecified N39.0; R31.9 Hematuria presence: with hematuria Urinary tract infection type: site unspecified DVT prophylaxis Z29.9 Discharge planning issues Z02.9 (1) Change in mental status Altered mental status type: unspecified Qualified Code(s): R41.82 - Altered mental status, unspecified (3) Urinary tract infection Hematuria presence: with hematuria Urinary tract infection type: site unspecified Qualified Code(s): N39.0 - Urinary tract infection, site not specified; R31.9 - Hematuria, unspecified
[2023-09-29] MEDS ORDERED: ROSUVASTATIN CALCIUM 20 MG TAB PO SCH ×2 (21:00)
--- NOTE | 2023-09-29 23:10 | Billing Data ---
Date of Service September 29, 2023 Coding Level of Care Code 40242 INT INP/OBS CARE
[2023-09-30 06:50] LABS: Hematocrit (blood only) 32.2 % (37.0-47.0); Hemoglobin 10.8 g/dl (12.0-16.0); Mean Corpuscular Hemoglobin 29.4 pg (25.0-34.0); Mean Corpuscular Hgb Conc 33.5 g/dL (32.0-36.0); Mean Corpuscular Volume 87.7 fL (80.0-100.0); Mean Platelet Volume 10.2 fL (9.4-12.4); Platelet Count 328 K/uL (130-400); RDW Coefficient of Variation 12.6 % (11.5-14.5); RDW Standard Deviation 40.3 fL (36.4-46.3); Red Blood Count 3.67 M/uL (4.20-5.40); White Blood Count 13.73 K/ul (4.8-10.8)
[2023-09-30 06:57] LABS: BUN Creatinine Ratio 33.3 (10-20); Calcium 9.2 mg/dl (8.6-10.3); Creatinine Clr Calc Pharmacy 57.3 ml/min; Est GFR (African American) 98.9 ml/min; Est GFR (Non-African American) 85.3 ml/min; Potassium 3.7 mmol/L (3.5-5.1)
[2023-09-30] MEDS: ALBUTEROL 0.083% NEBU SOLN 3 ML VIAL INH SCH ×2 (07:22→11:33)
[2023-09-30] MEDS: DICLOFENAC SOD 1% GEL 100 GM TUBE EXT SCH ×2 (08:50→13:24)
[2023-09-30] MEDS: UMECLIDINIUM/VILANTEROL 62.5/25MCG 7 PUFFS/INHALER INH SCH (08:51)
[2023-09-30] MEDS: FLUTICASONE FUROATE 200MCG 14 PUFFS/INHALER INH SCH (08:51)
[2023-09-30] MEDS: FLUTICASONE PROPIONATE NA SPR 16 GM BTL NAE SCH (08:51)
--- NOTE | 2023-09-30 08:55 | Hospitalist Progress Note ---
Date of Service September 30, 2023 Assessment & Plan Plan 78 F hospice patient with PMH of COPD on 4 L oxygen at baseline, anxiety, hypertension, CAD, and GERD who was admitted for AMS, difficulty breathing. Admitted for UTI, evaluation for discontinuation of hospice by palliative care. Urinary tract infection -UA: Trace leukocyte esterase, proteinuria, ketonuria, hematuria. Negative bacteriuria. Urine culture pending. -Afebrile, without leukocytosis. -S/p IV cefepime 2 g x 1 dose on admission. * Admit to MedSurg telemetry * IV cefepime 2 g every 12 hours. Await urine culture, nasal MRSA swab results * Trend CBC Change in mental status -Mostly nonverbal. Per daughter, is fully communicative at baseline. -CT head, CXR negative. -Urinary tract most likely source. * IV cefepime 2 g as above * Trend clinically for improvement COPD exacerbation -Increased oxygen requirement (5 L oxygen via nasal cannula) on arrival. -CXR negative. Audible wheezing on admission exam. -IV methylprednisolone 125 mg, DuoNeb nebulizer treatment ordered on admission. -Manage as acute exacerbation: * P.o. prednisone 40 mg daily x 4 days * DuoNeb every 4 hours x 24 hours, then as needed * Continue home regimen (umeclidinium/vilanterol, loratadine, fluticasone propionate, albuterol) Other Chronic Problems (hypertension, CAD, hyperlipidemia, GERD) * Continue home regimen Code: Full code. Daughter (Katrina) is medical POA [phone] Dispo: Med-Surg telemetry FEN/GI: Heart healthy (minced and moist) DVT Prophylaxis: Plavix 75 mg PT/OT: Yes Consults: Palliative care Case Management: Yes Admission and Anticipated Discharge Date Admission Date: September 28, 2023 Physical Exam Constitutional: WD/WN, vitals as above Respiratory: Auscultation: + wheezes (b/l with expiration) coarse breath sounds heard b/l Cardiovascular: RRR, no murmur, no edema Psychiatric: Orientation: oriented to person and oriented to place; + not oriented to time (month, y; year, n) Genitourinary: + bladder abnormality (suprapubic pain n oted on exam) Results & Data Results & Data Vital Signs (Past 12 Hours) Vital Signs Temp Pulse Pulse Pulse Resp BP Pulse Ox 12/07/23 08:00 36.1 C L 95 H 20 133/66 97 09/30/23 07:46 09/30/23 07:23 95 H 18 93 09/30/23 04:11 36.6 C 87 20 125/67 95 09/30/23 03:00 85 09/30/23 00:27 36.6 C 80 20 135/67 97 09/29/23 23:03 O2 Del Method O2 Flow Rate 09/30/23 08:00 Nebulizer 7 09/30/23 07:46 Nasal Cannula 2 09/30/23 07:23 Nasal Cannula 3 09/30/23 04:11 Nasal Cannula 2 09/30/23 03:00 09/30/23 00:27 Nasal Cannula 2 09/29/23 23:03 Nasal Cannula 4
[2023-09-30] MEDS ORDERED: ENOXAPARIN INJ 40 MG/0.4 ML SYR SQ SCH (09:00)
[2023-09-30] MEDS ORDERED: predniSONE 20 MG TAB PO SCH (09:00)
[2023-09-30] MEDS: CLOPIDOGREL BISULFATE 75 MG TAB PO SCH (09:41)
[2023-09-30] MEDS: busPIRone 7.5 MG TAB PO SCH ×2 (09:41→13:23)
[2023-09-30] MEDS: ADVANCED PROBIOTIC 1250 MG CAPSULE PO SCH (09:42)
[2023-09-30] MEDS: FERROUS SULFATE 325 MG TAB PO SCH (09:42)
[2023-09-30] MEDS: SACCHAROMYCES BOULARDII 250 MG CAP PO SCH (09:42)
[2023-09-30] MEDS: dilTIAZem HCl 60 MG TAB PO SCH (09:42)
[2023-09-30] MEDS: CYANOCOBALAMIN (B-12) 500 MCG TABLET PO SCH (09:42)
[2023-09-30] MEDS: LORATADINE 10 MG TAB PO SCH (09:42)
[2023-09-30] MEDS: ESCITALOPRAM OXALATE 10 MG TAB PO SCH (09:42)
[2023-09-30] MEDS: SUCRALFATE 1 GM TAB PO SCH (09:42)
[2023-09-30] MEDS: GABAPENTIN 300 MG CAP PO SCH ×2 (09:42→13:23)
[2023-09-30] MEDS: FAMOTIDINE 20 MG TAB PO SCH (10:26)
[2023-09-30] MEDS: COLESTIPOL HCL 1 GM TAB PO SCH (10:27)
[2023-09-30] MEDS: cefTRIAXone SODIUM 1,000 MG in DEXTROSE 5 % MINI-B 50 ML IV SCH (11:50)
--- NOTE | 2023-09-30 16:39 | Discharge Summary ---
Date of Service September 30, 2023 Admission HPI Per Admitting Provider Ana is a 78-year-old woman with history of COPD, GERD, osteoporosis, arthritis, anxiety, CAD, hypertension, hyperlipidemia, TIA, and current resident of shelter on hospice, who presented to the emergency room this afternoon after an episode of altered mental status and agitation. Patient is mostly nonverbal. In addition, ED documentation of the encounter is bare as of the writing of this note. Spoke to daughter over the phone, who noted that mom was last oriented on Wednesday. She was planning to bring her home on Wednesday, and she typically does. However, following the conversation, she noted that her mom "could not even recognize me." Mom also apparently was agitated and not oriented to her surroundings. Per daughter, she received antibiotics (cannot recall) and 5 mg of morphine, after which she became incontinent, which is unusual for her. She pleaded with send care staff to treat her COPD but they declined as she was on hospice. Daughter, who has medical power of retread mold operator, was not aware that she could not receive active care while in hospice, so she requested that her mom be taken off of hospice, and brought to the emergency room for evaluation. In the ED, she was saturating at 93% on 5 L nasal cannula (baseline appears to be 4 L on review of chart). RR-22 breaths/min. Rest of vitals normal. No leukocytosis on CBC (WBC-9.52). No electrolytic derangements or abnormal LFTs on CMP. UA did reveal trace leukocyte esterase (as well as 1+ proteinuria, 1+ ketonuria, 2+ hematuria nitrites negative). Hospitalist service was then consulted for admission. On admission, patient appeared to be audibly wheezing at bedside. She was also mostly nonverbal (yes/no answers only) and appeared to be oriented only to self. On review of her recent orders, she had not been ordered any nebulizer therapy/IV steroids/antibiotics these were ordered at bedside. Workup for patient's altered mental status was also not ordered. These were also ordered with general admission orders and are pending as of the writing of this note. Principal Diagnosis delirium, likely UTI Discharge Exam In general she is awake and alert pleasant no distress. HEENT normocephalic atraumatic mucous membranes moist. Breathing unlabored no accessory muscle use good effort. Skin shows no rashes no pallor or icterus. Neuro without focal deficits Discharge Data Allergies Allergy/AdvReac Type Severity Reaction Status Date / Time metoclopramide Allergy Severe "lungs Verified 12/10/22 16:01 collapsed" cortisone Allergy Intermediate swelling Verified 12/10/22 16:01 salicylates Allergy Intermediate caused Verified 12/10/22 16:01 bleeding, can take EC aspirin Corticosteroids AdvReac Intermediate swelling Verified 12/10/22 16:01 (Glucocorticoids) Consultations 09/28/23 20:31 ED Decision to Admit Stat Ordered Studies 09/28/23 21:[address] [CT head/brain wo con] Urgent Hospital Course (1) Urinary tract infection: 78 F hospice patient with PMH of COPD on 4 L oxygen at baseline, anxiety, hypertension, CAD, and GERD who was admitted for AMS, difficulty breathing. Admitted for UTI, evaluation for discontinuation of hospice by palliative care. Urinary tract infection - most likely cause for delirium/metabolic encephalopathy. Improved. Safe for discharge on p.o. antibiotics. Change in mental status - delirium/metabolic encephalopathy likely due to above COPD exacerbation -Increased oxygen requirement (5 L oxygen via nasal cannula) on arrival. -CXR negative. Audible wheezing on admission exam. - Given that her pCO2 was normal, and she appears to run hypercapnia quite often, exacerbation was likely mild at worst, and possibly the delirium was all due to UTI. Stable for discharge on baseline of oxygen and regular home meds. Other Chronic Problems (hypertension, CAD, hyperlipidemia, GERD) * Continue home regimen For return to Center care, patient/family will have ongoing discussions of overall goals of care with her team there. (2) Change in mental status: (3) Acute exacerbation of chronic obstructive pulmonary disease (COPD): (4) HTN (hypertension): (5) CAD (coronary artery disease): (6) Anxiety: Total Time Total Time Spent Total Time Spent (In Minutes): <30 Discharge Plan Discharge Items Patient Disposition: Hospice - Home Reason For Visit: UTI/COPD EXACERBATION Discharge Diagnosis: urinary tract infection Activity: Resume your previous activity Non-emergency contact: Primary Care Provider Call non-emergency contact if: you have any medication questions Follow-up/Referrals: [facility] [Primary Care Provider] - Diet: Regular Addtl Attending Provider Instructions: You were admitted to the hospital for [_]. You were treated with [_]. A discharge summary will be sent to your primary care physician to ensure continuity of care. Please bring this discharge summary with you to your next office appointment so that your provider can review it at that time. Follow-up appointments: We have requested a follow-up appointment with your primary care physician within one week of discharge. Please call their office if you do not hear from them. Keep all your follow-up appointments as already scheduled. If you cannot make an appointment, notify your provider. Medications: Your medication list has been reviewed and reconciled upon discharge to ensure accuracy and continuity of care. An updated list of all your medications is included with your hospital discharge paperwork. Please review this list closely, and make note of any changes. We sent a new medication called Cefdinir to your pharmacy. Take Cefdinir 300 mg, by mouth, twice a day, for 4 days. Take your medications as instructed; do not skip a dose of your medicines. Make sure all of your doctors know every medicine you are taking (including uqye-eec-csaekcy medicines, vitamins, and supplements). Call your primary care provider before taking any new medicines (including ofpy-oma-ahorxvb medicines, vitamins, and supplements), because some of these may interact with your current medications, or may make your symptoms worse. Tell your primary care provider if you cannot afford your medications. CONTACT YOUR PRIMARY CARE PROVIDER if you experience any of the following: fevers, chills, increased frequency, burning with urination worsening confusion, altered mental status Difficulty following your treatment plan, or difficulty taking medications CALL 911 OR GO TO THE EMERGENCY DEPARTMENT if you experience any of the following: Sudden, severe abdominal pain or nausea/vomiting Severe chest pain, or chest pain that radiates (moves) to your jaw or arm Sudden, severe shortness of breath or difficulty breathing Thank you for allowing us to participate in your care. Pending Studies at Discharge: No Stand-Alone Forms: My [facility] Medications and DC Order Prescriptions: New cefdinir 300 mg capsule 300 mg PO BID 4 Days Qty: 8 0RF Continued clopidogrel [Plavix] 75 mg Tablet 75 mg PO QAM Patient Comments: PRESENTLY ON HOLD FOR COLONOSCOPY ferrous sulfate 325 mg (65 mg iron) Tablet 325 mg PO QAM escitalopram oxalate [Lexapro] 5 mg Tablet 5 mg PO QAM cyanocobalamin (vitamin B-12) 500 mcg Tablet, Sublingual 500 mcg SUBLINGUAL QAM sucralfate [Carafate] 1 gram tablet 1 g PO BID pantoprazole [Protonix] 40 mg tablet,delayed release (DR/EC) 40 mg PO DAILY prednisone 10 mg Tablet 10 mg PO QAM diclofenac sodium [Voltaren Arthritis Pain] 1 % gel 4 g EXT QID Rx Instructions: apply to L/R shoulder, R thigh. use 2 grams for shoulders and 4 grams for R thigh diltiazem HCl 60 mg Capsule,Extended Release 12 Hr 60 mg PO QAM protein supplement Liquid 1 ea PO QPM Rx Instructions: GIVE 30 ML. guaifenesin 600 mg tablet extended release 12hr 600 mg PO Q12 Lactobacillus acidophilus Tablet,Chewable 1 tab PO BID Saccharomyces boulardii 250 mg Capsule 500 mg PO BID acetaminophen [Tylenol] 325 mg Tablet 650 mg PO Q6 PRN (Reason: pain 1-4/FEVER >100) albuterol sulfate 90 mcg/actuation HFA aerosol inhaler 2 puff INHALATION Q12 PRN (Reason: Shortness Of Breath Or Wheezing) Rx Instructions: rinse mouth after use Breztri Aerosphere 160-9-4.8 mcg/actuation HFA aerosol inhaler 2 inh INHALATION BID famotidine 20 mg tablet 20 mg PO AMHS gabapentin 300 mg capsule 300 mg PO TID oxymetazoline [Afrin (oxymetazoline)] 0.05 % [place]wall,Non-Aerosol 2 spray INTRANASAL Q12H PRN (Reason: epistaxis) albuterol sulfate 2.5 mg /3 mL (0.083 %) Solution For Nebulization 2.5 mg INHALATION .EVERY 2 HOURS PRN (Reason: SOB/wheeze) albuterol sulfate 2.5 mg /3 mL (0.083 %) Solution For Nebulization 2.5 mg INHALATION QID clonazepam 0.5 mg tablet 0.5 mg PO BID buspirone 7.5 mg tablet 7.5 mg PO TID estradiol 0.01 % (0.1 mg/gram) cream 1 applic VAGINAL 3XWK Rx Instructions: WEDNESDAY,WEDNESDAY,WEDNESDAY fluticasone propionate 50 mcg/actuation Edwall,Suspension 2 spray INTRANASAL QAM Rx Instructions: administer into each nostril fentanyl 12 mcg/hr patch 72 hour 1 patch transdermal [id number] lidocaine HCl 10 mg/mL (1 %) Solution 2.1 ml IM QPM Rx Instructions: take for 10 days..mix with Ceftriaxone 1 gm prior to administration guaifenesin 100 mg/5 mL Liquid 300 mg PO Q4H PRN (Reason: Cough) Rx Instructions: 15 ml dose loratadine 10 mg Tablet 10 mg PO QAM ondansetron HCl 4 mg tablet 4 mg PO Q6 PRN (Reason: N/V) rosuvastatin 20 mg tablet 20 mg PO HS oxycodone 10 mg Tablet 10 mg PO Q6H PRN (Reason: pain 5-8) nystatin 100,000 unit/mL Suspension 5 ml PO QID Rx Instructions: swish and swallow morphine concentrate 100 mg/5 mL (20 mg/mL) Solution 10 mg PO .EVERY 30 MINUTES PRN (Reason: pain 9-10/SOB) morphine concentrate 20 mg/mL Syringe 5 mg PO QID Rx Instructions: 0.25 ml dose lorazepam 0.5 mg Tablet 0.5 mg PO .EVERY 1 HOUR PRN (Reason: restlessness/agitaion) atropine sulfate (PF) 1 % Dropperette 3 drp .EVERY 1 HOUR PRN (Reason: increased secretions) Rx Instructions: oral dose Discontinued ceftriaxone 1 gram Recon Soln 1 g IM QPM Rx Instructions: mix with Lidocaine 1% prior to administration take for 10 days...start 09/27/23 Discharge Orders: Discharge Order (Routine); Ordered 09/30/23 Ordered By: Jadon Graves Admission Data Admit Date/Time: 09/28/23 22:28 Attending Provider: Mark Hampton Admit Provider: Luann Tyler Primary Care Provider: [facility] Other Providers: Hakeem Molina; [facility] Other Interventions: Discharge Summary Assessment (RN) Last Done: 09/30/23 13:53 Coding Level of Care Code 51821 IN/OBS DISCH 30 MIN/LESS Diagnoses Urinary tract infection with hematuria, site unspecified N39.0; R31.9 Urinary tract infection type: site unspecified Hematuria presence: with hematuria Altered mental status, unspecified altered mental status type R41.82 Altered mental status type: unspecified Acute exacerbation of chronic obstructive pulmonary disease (COPD) J44.1 Primary hypertension I10 Hypertension type: primary hypertension CAD (coronary artery disease) I25.10 Anxiety F41.9
== END 2023-09-30 13:54 | DRG 689 ==
LOC: ED 16:54 → SUATTDRO 22:28 → EDINP 22:28 → 2N 22:55

== ENCOUNTER 2024-02-13 09:17 | Inpatient (IN) ==
--- OUTSIDE RECORDS SUMMARY | 2024-02-13 09:20 | External Medical Summary | Summary of Care ---
Author Name Unknown Organization [facility] Address [address] [place] [address] Phone [phone] Care Team Providers Care Hand Chain Maker Name Role Phone Marguerite SERRA MD, Moiz Mcmanus Primary Care Pr ovider Encounter Details Date Type Department Care Team (Late st Contact Info) Description 01/31/2024 Population Health External Data Unspecified Department Allergies Active Allergy Reactions Criticality Noted Date Comments Cortisone Edema Other High 08/15/2002 Corticosteriods Other reaction(s): swelling Metoclopramide High 02/19/2022 Other reaction(s): "lungs collapsed" Other Allergy (See Comments) High 02/19/2022 Other reaction(s): swelling Metoclopramide Hcl Neuro complications (Please comment) Low 05/28/2010 Lip quivering Salicylates Low 02/19/2022 Other reaction(s): caused bleeding, can take EC aspirin documented as of this encounter (statuses as of 01/31/2024) Medications Medication Sig Dispensed Refills Start Date End Date Status Mometasone Furoate 50 MCG/ACT nasal sprayIndications:Chr onic rhinitis INHALE TWO SPRAYS PER NOSTRIL ONCE A DAY 1 Inhaler 5 04/10/2016 Active Nebulizers (NEBULIZER COMPRESSOR) MISCIndications: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 0 Active predniSONE 10 MG Oral Tablet (Deltasone) Take 1 Tablet by mouth in the morning. 0 Active Ondansetron HCl 4 MG Oral Tablet (Zofran) Take 1 Tablet by mouth every 6 hours as needed. 0 Active Gabapentin 300 MG Oral Capsule (Neurontin) Take 1 Capsule by mouth in the morning and 1 Capsule at noon and 1 Capsule before bedtime. 0 Active Ipratropium-Albutero l 0.5-2.5 (3) MG/3ML Inhalation Solution (Duoneb) Inhale 3 mL via nebulizer in the morning and 3 mL at noon and 3 mL in the evening and 3 mL before bedtime. 360 mL 12/24/2023 Active Budesonide 0.5 MG/2ML Inhalation Suspension (Pulmicort) Inhale 0.5 mg via nebulizer in the morning and 0.5 mg in the evening. 60 mL 11 12/24/2023 Active predniSONE 20 MG Oral Tablet (Deltasone) 2 tablets by mouth daily for 5 days. 10 Tablet 0 12/24/2023 Active Additional Information Patient not taking.Reported on 01/25/2024 Arformoterol Tartrate 15 MCG/2ML Inhalation Nebulization Solution (Brovana) Inhale 15 mcg by mouth in the morning and 15 mcg before bedtime. 120 mL 11 12/24/2023 Active documented as of this encounter (statuses as of 01/31/2024) Active Problems Problem Noted Date Diagnosed Date [...] as of this encounter (statuses as of 01/31/2024) Resolved Problems Problem Noted Date Diagnosed Date [...] as of this encounter (statuses as of 01/31/2024) Immunizations Name Administration Dates Next Due COVID-19 mRNA, LNP-s, No Pre serve, 2-Dose Series (Pfizer) 08/27/2021,12/19/2020,11/28/2020 Pneumococcal Conjugate Vacc, 13 Valent (Prevnar) 07/10/2015 Pneumococcal Polysaccharide PPV23 (Pneumovax) 09/01/2017,04/20/2007 Seasonal Influenza, PF, 6 M & above, IM , (FluLaval or Fluzone) 07/27/2022,07/17/2020,07/20/2019,04/2018,07/30/2017 07/01/2019 Seasonal Influenza, Quadriva lent Hd (Fluzone Hd) 07/09/2021 Seasonal Influenza, Quadriva lent, No Preserve, IM 09/09/2016 Seasonal Influenza, Split, I IV3, With Preserve, Inj 07/10/2015,08/01/2014,07/07/2013,06/25,07/06/2011,07/14/2010,07/18/20 09,08/30/2008,08/17/2007 TDAP (age 11 and older)(Adacel) 04/19/2008 Varicella Zoster Vaccine (Adult) 10/07/2012 documented as of this encounter Social History Tobacco Use Types Packs/Day Years Used Date Smoking Tobacco: Former Cigarettes 1 64 0 04/24/1958 - 04/24/2022 Smokeless Tobacco: Never Alcohol Use Standard Drinks/Week Comments Yes 0 (1 standard drink = 0.6 oz pur e alcohol) 1 beer weekly PHQ-2 Answer Date Recorded PHQ Adult Total Score 0 01/25/2024 Hunger Vital Sign Answer Date Recorded Worried [...] on file documented as of this encounter Plan of Treatment Upcoming Encounters Date Type Department Care Team (Late st Contact Info) Description 12/26/2024 1:00 PM EST Office Visit [facility] [address] [place] [phone] Aishwarya Jacobo CRNP [address] [place] [id number] Health Maintenance Due Date Last Done Comments Albumin/Creatinine Ratio 1963 Hepatitis C Screening 1963 Zoster Vaccines (2 of 3) 12/02/2012 10/07/2012 DTaP,Tdap,and Td Vaccines (2 - Td or Tdap) 04/19/2018 04/19/2008 GFR 03/03/2023 03/03/2022, 03/27, 01/15/2021, Additional history exists COVID-19 Vaccine ( season) 2023 08/27/2021, 12/19/2020, 11/28/2020 Influenza Vaccine (FLU shot) (Season Ended) 2024 07/27/2022, 07/27/2022, 07/09/2021, Additional history exists O2 ASSESSMENT COMPLETED IN PAST YEAR FOR COPD 12/23/2024 12/24/2023 Depression Screening 01/24/2025 01/25/2024 DXA Scan 03/01/2025 03/01/2023, 05/25, 05/09/2018, Additional history exists Pneumococcal Vaccine: 65+ Years Completed 09/01/2017, 07/10/2015, 04/20/2007 Alpha-1 Antitrypsin Completed 07/17/2020 VITAMIN D LEVEL ONCE IN A LIFETIME-USE SMARTSET# [id number] Completed 04/23/2021, 07/17/2020, 08/24/2019, Additional history exists LUNG CANCER SCREENING - USE SMARTSET [id number] Completed 04/25/2021, 01/20/2021, 06/22/2019, Additional history exists [...] this encounter Medical Devices Implanted Type Area Bush Regenerator Device Identifier Shelf Expiration Date Model / Serial / Lot Stent Assurant [id number] - [id number] Implanted:Qty: 1 on 06/22/2014 at OR [facility] Right: Iliac [employer] : VASCULAR 12/07/2015 [id number] / / [id number] documented as of this encounter Advance Directives Latest Code Status on File Code Status Date Activated Date Inactivated Comments Full Code 06/22/2014 1:40 PM 06/23/2014 1:30 PM Question Answer Comments Discussion of Advance Direct myles occurred with: Not Discussed Does the patient have a Living Will? No Does the patient have Health Care Power of Travel Rn Or? No Healthcare Agents on File Name Relationship Healthcare Agent Relationship Communication Sussy Lui Other - (no specific identity) Second Alternate Health Care Agent Katrina Nichols Adult Child Power of Travel Rn Or Care Teams Hand Chain Maker Relationship Specialty Start Date End Date Moiz Everett III, MD [facility] [place] [id number] PCP - General Internal Medicine 09/09/22 documented as of this encounter
--- NOTE | 2024-02-13 09:32 | Emergency Department Note ---
Impression & Plan Hypoxia ADMIT ED Provider Note HPI: History obtained from bedside RN via EMS report. The patient is a 78-year-old female with history of CVA, TIA, dysphagia, coronary artery disease, hyperlipidemia, hypertension, peripheral vascular disease, COPD on nasal cannula oxygen at baseline, metabolic encephalopathy, presents the emergency department from her [facility] over concern for altered mental status. Per report patient seemed altered this morning when she was awoken. She was noted to be hypoxic in the field via EMS and was placed on nasal cannula oxygen. Per RN report the patient was hypoxic on arrival and was placed on nonrebreather mask with improvement. On my assessment patient has pinpoint pupils, she is lethargic. Patient was noted to have a fentanyl patch behind her right upper extremity which was removed. ROS: - Per HPI Differential Diagnosis: Opioid overdose, COPD exacerbation with hypercarbia and metabolic encephalopathy, aspiration pneumonia, acute CHF exacerbation, acute coronary syndrome, pulmonary embolism, stroke, intracranial hemorrhage, amongst other potential pathologies. *Outpatient medications and allergy history reviewed. PE: General: Patient is lethargic HEENT: Normocephalic, trachea midline Eyes: Extraocular eye movement is intact, no scleral erythema, pupils are pinpoint with minimal reactivity Pulmonary: Diminished breath sounds bilaterally Cardio: Regular rate and rhythm GI: Abdomen is soft to palpation : No suprapubic tenderness MSK: No evidence of trauma or malformation of the extremities, no edema Skin: No evidence of rash Neuro: Lethargy without obvious focal motor deficits, patient ambulates extremities spontaneously Psychiatric: Patient is lethargic and minimally responsive to verbal stimuli INDEPENDENT INTERPRETATIONS: cook dinner: (As interpreted by myself): - An order was placed for continuous cardiac monitoring - Patient was noted to be in sinus rhythm with a rate of 100 EKG: (As interpreted by myself): Rate: 107 Rhythm: Sinus rhythm Intervals: Within normal limits ST changes: No ST elevation Time: 09 Chest x-ray: (As interpreted by myself): No focal pneumonia Interventions provided in ED: -IV fluid bolus, DuoNeb breathing treatment, BiPAP, IV Unasyn Medical Decision Making: IV was established and lab work obtained. Patient was given Narcan shortly after arrival and fentanyl patch was removed. Patient's responsiveness improved dramatically with Narcan. She did clench her abdomen to suggest that she was having pain, also noted to have hypoxia despite nasal cannula oxygen and was switched to nonrebreather mask. Lab work shows no leukocytosis, hemoglobin is stable, platelet count is normal. Venous blood gas shows hypercarbic respiratory failure with pCO2 of 80 and venous pH of 7.29, CMP does not show any critical findings, troponin is elevated at 351. Procalcitonin is low. CT imaging of the head does not show any evidence of any acute process. CT imaging of the chest with angiography is limited and diagnostic abilities however no central PE is identified. There are some secretions in the lower bronchioles according to the interpreting radiologist. Patient did have some vomit on her close when she came in, suspect possible aspiration pneumonia. Blood cultures were drawn, patient was given IV Unasyn. CT imaging of the abdomen pelvis was obtained as the patient historically has had some abdominal pain over the past several weeks according to report and did clench her abdomen here in the ED to suggest she was having pain, this does not show any evidence of any acute process. On my reassessment the patient appears much more alert, she was switched to BiPAP given hypercarbic respiratory failure with good improvement in her oxygen saturations. I discussed the patient's presentation with the on-call hospitalist, Dr. Irvin, and the patient was placed for admission in improved condition. Consultants/Discussions held with other healthcare providers: -Hospitalist, Dr. Irvin * CRITICAL CARE TIME: ( 47 ) minutes -Stabilization of patient with hypoxia with oxygen saturations as low as 68% despite nasal cannula oxygen requiring noninvasive positive pressure ventilation for improvement, time spent at the bedside, interpretation of diagnostic studies, discussion with other healthcare providers and arrangement of admission Diagnosis: 1. Acute respiratory failure with hypercarbia 2. Opioid overdose with metabolic encephalopathy 3. Elevated high-sensitivity troponin level 4. Aspiration pneumonia 5. Abdominal pain, acute on chronic Disposition: Admission Sebas De Leon DO Emergency Medicine Past Med/Surg History Medical History skilled nursing resident resident of [facility] TIA (transient ischemic attack) History of GI bleed History of anemia History of esophageal dilatation Diarrhea Difficulty swallowing PVD (peripheral vascular disease) GERD (gastroesophageal reflux disease) Osteoporosis Arthritis Anxiety SOB (shortness of breath) on exertion Chronic obstructive pulmonary disease OXYGEN 3-4 L/MIN CONTINUOUSLY CAD (coronary artery disease) F/U DR Angélica LEONARDO Hyperlipidemia Hypertension History of esophageal stricture Asymptomatic bilateral carotid artery stenosis "s/p bilateral carotid endarterectomy" Surgical History H/O vascular surgery RIGHT ILIAC ARTERY STENT PLACEMENT H/O knee surgery History of appendectomy History of esophagogastroduodenoscopy (EGD) History of colonoscopy History of cataract surgery R/L H/O hemorrhoidectomy H/O carotid endarterectomy R/L History of cardiac cath NO STENTS Family History Other No family history of adverse response to anesthesia Social History Smoking Status: Former smoker Age Started Using Tobacco: 19; packs per day: 2; Cigarettes Per Day: 5-10 CIG a day ADVISED; Do You Dip or Chew Tobacco: Yes; Hx Alcohol Use: No Hx Substance Use: No Preferred Language: Sammarinese Communication Ability: Impaired Pheresis Specialist Required: No Beliefs That Will Affect Care: None marital status: / Current Living Situation: Family Current Living Situation Comment: [facility] How many Children do You have: 1 Feels Safe at Home: Yes Assistive Devices: Oxygen - Continuous and Walker Allergies Allergies Allergy/AdvReac Type Severity Reaction Status Date / Time metoclopramide Allergy Severe "lungs Verified 12/10/22 16:01 collapsed" cortisone Allergy Intermediate swelling Verified 12/10/22 16:01 salicylates Allergy Intermediate caused Verified 12/10/22 16:01 bleeding, can take EC aspirin Corticosteroids AdvReac Intermediate swelling Verified 12/10/22 16:01 (Glucocorticoids) Home Meds Home Medications Medication Instructions Recorded Confirmed clopidogrel 75 mg tablet (Plavix) 75 mg PO QAM 08/15/19 09/28/23 cyanocobalamin (vitamin B-12) 500 500 mcg sublingual QAM 08/15/19 09/28/23 mcg sublingual tablet escitalopram oxalate 5 mg tablet 5 mg PO QAM 08/15/19 09/28/23 (Lexapro) ferrous sulfate 325 mg (65 mg 325 mg PO QAM 08/15/19 09/28/23 iron) tablet sucralfate 1 gram tablet (Carafate) 1 g PO BID 12/02/19 09/28/23 pantoprazole 40 mg tablet,delayed 40 mg PO DAILY 12/04/19 09/28/23 release (Protonix) diltiazem HCl 60 mg 60 mg PO QAM 02/17/22 09/28/23 capsule,extended release 12 hr protein supplement 1 ea PO QPM 04/27/22 09/28/23 Lactobacillus acidophilus 1 tab PO BID 10/22/22 09/28/23 Saccharomyces boulardii 250 mg 500 mg PO BID 10/22/22 09/28/23 capsule acetaminophen 325 mg tablet 650 mg PO Q6 PRN pain 1-4/FEVER 10/22/22 09/28/23 (Tylenol) >100 albuterol sulfate 90 mcg/actuation 2 puff inhalation Q12 PRN 10/22/22 09/28/23 aerosol inhaler Shortness Of Breath Or Wheezing guaifenesin 600 mg tablet, 600 mg PO Q12 10/22/22 09/28/23 extended release 12 hr diclofenac sodium 1 % topical gel 4 g EXT QID 12/10/22 09/28/23 (Voltaren Arthritis Pain) prednisone 10 mg tablet 10 mg PO QAM 12/10/22 09/28/23 albuterol sulfate 2.5 mg/3 mL 2.5 mg inhalation .EVERY 2 HOURS 09/28/23 09/28/23 (0.083 %) solution for nebulization PRN SOB/wheeze albuterol sulfate 2.5 mg/3 mL 2.5 mg inhalation QID 09/28/23 09/28/23 (0.083 %) solution for nebulization atropine sulfate (PF) 1 % eye 3 drp .EVERY 1 HOUR PRN increased 09/28/23 09/28/23 drops in a dropperette secretions budesonide 160 mcg-glycopyr 9 2 inh inhalation BID 09/28/23 09/28/23 mcg-formot 4.8 mcg/actuation HFA inhaler (Breztri Aerosphere) buspirone 7.5 mg tablet 7.5 mg PO TID 09/28/23 09/28/23 clonazepam 0.5 mg tablet 0.5 mg PO BID 09/28/23 09/28/23 estradiol 0.01% (0.1 mg/gram) 1 applic vaginal 3XWK 09/28/23 09/28/23 vaginal cream famotidine 20 mg tablet 20 mg PO AMHS 09/28/23 09/28/23 fentanyl 12 mcg/hr transdermal 1 patch transdermal [id number] 09/28/23 09/28/23 patch fluticasone propionate 50 2 spray intranasal QAM 09/28/23 09/28/23 mcg/actuation nasal spray,suspension gabapentin 300 mg capsule 300 mg PO TID 09/28/23 09/28/23 guaifenesin 100 mg/5 mL oral liquid 300 mg PO Q4H PRN Cough 09/28/23 09/28/23 lidocaine HCl 10 mg/mL (1 %) 2.1 ml IM QPM 09/28/23 09/28/23 injection solution loratadine 10 mg tablet 10 mg PO QAM 09/28/23 09/28/23 lorazepam 0.5 mg tablet 0.5 mg PO .EVERY 1 HOUR PRN 09/28/23 09/28/23 restlessness/agitaion morphine concentrate 100 mg/5 mL 10 mg PO .EVERY 30 MINUTES PRN 09/28/23 09/28/23 (20 mg/mL) oral solution pain 9-10/SOB morphine concentrate 20 mg/mL oral 5 mg PO QID 09/28/23 09/28/23 syringe (FOR ORAL USE ONLY) nystatin 100,000 unit/mL oral 5 ml PO QID 09/28/23 09/28/23 suspension ondansetron HCl 4 mg tablet 4 mg PO Q6 PRN N/V 09/28/23 09/28/23 oxycodone 10 mg tablet 10 mg PO Q6H PRN pain 5-8 09/28/23 09/28/23 oxymetazoline 0.05 % nasal spray 2 spray intranasal Q12H PRN 09/28/23 09/28/23 (Afrin (oxymetazoline)) epistaxis rosuvastatin 20 mg tablet 20 mg PO HS 09/28/23 09/28/23 Results & Data (ED) Vital Signs Vital Signs - 24 hr 02/13/24 09:19 02/13/24 09:20 02/13/24 09:23 Temperature Temperature Source Pulse Rate 157 H 113 H 114 H Pulse Rate from SpO2 Sensor 120 H 108 H 114 H Respiratory Rate 11 L 10 L 19 Blood Pressure Blood Pressure Mean Pulse Oximetry 77 L 89 L 84 L Oxygen Delivery Method Oxygen Flow Rate 8 15 15 Sepsis Recent Fever Within 48 Hours Sepsis New/Unexplained Change in Mental Status Sepsis Action Taken by Nursing 02/13/24 09:23 02/13/24 09:27 02/13/24 09:29 Temperature 36.6 C Temperature Source Oral Pulse Rate 107 H 119 H Pulse Rate from SpO2 Sensor Respiratory Rate 11 L Blood Pressure 140/90 140/90 Blood Pressure Mean 105 106 Pulse Oximetry 68 L Oxygen Delivery Method Nasal Cannula Oxygen Flow Rate 3 Sepsis Recent Fever Within 48 Hours No Sepsis New/Unexplained Change in Mental Status No Sepsis Action Taken by Nursing No Action Required 02/13/24 09:30 Temperature Temperature Source Pulse Rate 104 H Pulse Rate from SpO2 Sensor 116 H Respiratory Rate 20 Blood Pressure Blood Pressure Mean Pulse Oximetry 90 Oxygen Delivery Method Oxygen Flow Rate 15 Sepsis Recent Fever Within 48 Hours Sepsis New/Unexplained Change in Mental Status Sepsis Action Taken by Nursing Laboratory Data 02/13/24 09:35 02/13/24 09:35 Lab Results 02/13/24 02/13/24 Range/Units 09:35 10:44 WBC 9.99 (4.8-10.8) K/ul RBC 4.11 L (4.20-5.40) M/uL Hgb 12.0 (12.0-16.0) g/dl Hct 39.7 (37.0-47.0) % MCV 96.6 (80.0-100.0) fL MCH 29.2 (25.0-34.0) pg MCHC 30.2 L (32.0-36.0) g/dL RDW Std Deviation 47.4 H (36.4-46.3) fL RDW Coeff of Renetta 13.2 (11.5-14.5) % Plt Count 343 (130-400) K/uL MPV 9.9 (9.4-12.4) fL Immature Gran % (Auto) 0.6 % Neut % (Auto) 66.6 % Lymph % (Auto) 19.8 % [place] % (Auto) 10.5 % Eos % (Auto) 1.7 % Baso % (Auto) 0.8 % Neut # (Auto) 6.65 H (1.40-6.50) K/uL Lymph # (Auto) 1.98 (1.20-3.40) K/uL [place] # (Auto) 1.05 H (0.11-0.59) K/uL Eos # (Auto) 0.17 (0.00-0.50) K/uL Baso # (Auto) 0.08 (0.00-0.20) K/uL Immature Gran # (Auto) 0.06 (0.01-0.20) K/uL VBG pH 7.29 L (7.36-7.41) VBG pCO2 80 H (38-50) mmHg VBG pO2 47 mmHg VBG HCO3 39 mmol/L VBG O2 Saturation 74.6 % VBG Base Excess 8.7 mEq/L Sodium 135 L (136-145) mmol/L Potassium 4.4 (3.5-5.1) mmol/L Chloride 94 L (98-107) mmol/L Carbon Dioxide 37 H (21-32) mmol/L Anion Gap 4 (3-11) BUN 18 (6-23) mg/dl Creatinine 1.13 (0.6-1.2) mg/dl Est Cr Clr Drug Dosing Not Reportable Est GFR ( Amer) 53.5 ml/min Est GFR (Non-Af Amer) 46.2 ml/min BUN/Creatinine Ratio 15.9 (10-20) Glucose 107 H (70-99(Fasting)) mg/dl Lactate 1.3 (0.4-2.0) mmol/L Calcium 9.4 (8.6-10.3) mg/dl Magnesium 2.1 (1.7-2.4) mg/dl Total Bilirubin 0.5 (0.2-1.0) mg/dl Direct Bilirubin 0.1 (0-0.2) mg/dl AST 30 (13-39) U/L ALT 15 (7-52) U/L Alkaline Phosphatase 48 (34-104) U/L Troponin I High Sens 351.3 H* (0-14) pg/ml Total Protein 6.8 (6.0-8.3) gm/dl Albumin 4.0 (3.4-5.0) gm/dl Procalcitonin 0.11 (0-0.5) ng/ml Administered Medications Discontinued Medications Ioversol (Optiray 320 125ml) 112 ml IV ONCE ONE Stop: 02/13/24 11:03 Last Admin: 02/13/24 11:02 Dose: 112 ml Documented By: SEJ Imaging Data Radiologist's Impression: Chest X-Ray 02/13/24 09:29 XR chest 1V portable CLINICAL HISTORY: Sepsis COMPARISON STUDY: Chest radiograph September 28, 2023. FINDINGS: There is no pneumothorax or pleural effusion. Emphysema is present. There are mild bibasilar opacities, greater on the right. There is no evidence for pulmonary edema. Cardiomediastinal silhouette is stable. Widening of the right paratracheal stripe is likely due to vessels. IMPRESSION: 1. Bibasilar opacities. Atelectasis is favored although an infectious process could appear similar. 2. Emphysema. ACT 112: Negative or not required by law. Electronically signed by: Bismark Martines M.D. 02/13/2024 10:13 AM Abdomen/Pelvis CT 02/13/24 09:43 CT OF THE ABDOMEN AND PELVIS WITH CONTRAST CLINICAL HISTORY: Mid abdominal pain. Altered mental status. COMPARISON STUDY: CT of the abdomen and pelvis December 10, 2022. TECHNIQUE: Following IV administration of 112 mL of Optiray, axial images of the abdomen and pelvis were obtained from the lung bases to the proximal femurs. Images were reviewed in the axial, sagittal, and coronal planes. IV contrast was administered without complication. Automated exposure control was utilized for the study. A dose lowering technique was utilized adhering to the principles of ALARA. FINDINGS: Please note that the chest CT will be reported separately. No pneumatosis, free air or portal venous gas is present. Liver, spleen, adrenal glands and pancreas are unremarkable. There is no process. There is a 2.6 cm water attenuation right renal lesion. This is consistent with a cyst. Moderate bilateral renal cortical thinning is present. The caliber and wall thickness of small and large bowel are normal. There is a moderate amount of stool within the right colon. The appendix is not visualized. No inflammation is identified. There is extensive aortoiliac atherosclerotic plaque. No ascites is present. There are no fluid collections. Old T12 and L1 compression fractures are unchanged. No acute fractures are identified within visualized skeletal structures. This study is mildly compromised by motion artifact. Bladder wall thickening is unchanged. IMPRESSION: 1. No acute process within the abdomen or pelvis. 2. No bowel obstruction. No bowel wall thickening. ACT 112: Negative or not required by law. Electronically signed by: Bismark Martines M.D. 02/13/2024 11:28 AM Chest CTA 02/13/24 10:29 CT ANGIOGRAPHY OF THE CHEST, PULMONARY EMBOLUS PROTOCOL CLINICAL HISTORY: Altered mental status. Evaluate for pulmonary embolus. COMPARISON STUDY: Chest radiograph February 13, 2024 at 9:[address] November 30, 2009. TECHNIQUE: Following IV administration of 112 mL of Optiray, helical axial images of the chest were obtained utilizing the pulmonary embolus protocol. Maximal intensity projections and sagittal and coronal reformats were viewed on an independent 3D workstation. IV contrast was administered without complication. Automated exposure control was utilized for the study. A dose lowering technique was utilized adhering to the principles of ALARA. CT DOSE: 1979.38 mGy.cm FINDINGS: Evaluation of the pulmonary arteries is nearly nondiagnostic given suboptimal opacification. No central pulmonary embolus is identified. There is mild cardiomegaly and extensive coronary calcification. No pericardial effusion. There is no thoracic lymphadenopathy. No pneumothorax or pleural effusion is present. Subpleural opacities are greater within the right lower lobe. Lungs are suboptimally assessed due to respiratory motion. There is underlying moderate to severe emphysema. 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 Scattered secretions within lower lobe segmental bronchi are present. There are several old thoracic and lumbar spine compression fractures. Abdomen and pelvis CT will be reported separately. There is extensive atherosclerotic plaque of the thoracic aorta. IMPRESSION: 1. Near nondiagnostic evaluation of the pulmonary arteries due to suboptimal opacification. No central pulmonary embolus. If persistent clinical suspicion for pulmonary embolus, repeat study might be considered. 2. Subpleural lower lobe opacity suggestive of atelectasis. 3. Emphysema. 4. 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 5. Scattered secretions within bilateral lower lobe segmental bronchi. ACT 112: Negative or not required by law. Electronically signed by: Bismark Martines M.D. 02/13/2024 11:[address] 02/13/24 10:29 CT OF THE HEAD WITHOUT CONTRAST CLINICAL HISTORY: Altered mental status. COMPARISON STUDY: MRI of the brain April 28, 2022. Head CT September 28, 2023. TECHNIQUE: Helical axial images of the head were obtained without IV contrast. Automated exposure control was utilized for the study. A dose lowering technique was utilized adhering to the principles of ALARA. FINDINGS: No acute intracranial hemorrhage, midline shift or mass effect is present. White matter hypodensities are unchanged and favor small vessel disease. The ventricular system is unremarkable. The basal cisterns are patent. No extra-axial collections are present. There are no findings to suggest acute dural sinus thrombosis or acute territorial infarct. No significant calvarial abnormalities are present. IMPRESSION: No acute intracranial findings. ACT 112: Negative or not required by law. Electronically signed by: Bismark Martines M.D. 02/13/2024 11:16 AM Discharge Plan Visit Data Chief Complaint: Abdominal Pain ED Provider: Sebas De Leon Discharge Problem: Hypoxia Forms Stand Alone Forms: My [facility] [employer] Prescriptions Prescriptions: No Action clopidogrel [Plavix] 75 mg Tablet 75 mg PO QAM Patient Comments: PRESENTLY ON HOLD FOR COLONOSCOPY ferrous sulfate 325 mg (65 mg iron) Tablet 325 mg PO QAM escitalopram oxalate [Lexapro] 5 mg Tablet 5 mg PO QAM cyanocobalamin (vitamin B-12) 500 mcg Tablet, Sublingual 500 mcg SUBLINGUAL QAM sucralfate [Carafate] 1 gram tablet 1 g PO BID pantoprazole [Protonix] 40 mg tablet,delayed release (DR/EC) 40 mg PO DAILY prednisone 10 mg Tablet 10 mg PO QAM diclofenac sodium [Voltaren Arthritis Pain] 1 % gel 4 g EXT QID Rx Instructions: apply to L/R shoulder, R thigh. use 2 grams for shoulders and 4 grams for R thigh diltiazem HCl 60 mg Capsule,Extended Release 12 Hr 60 mg PO QAM protein supplement Liquid 1 ea PO QPM Rx Instructions: GIVE 30 ML. guaifenesin 600 mg tablet extended release 12hr 600 mg PO Q12 Lactobacillus acidophilus Tablet,Chewable 1 tab PO BID Saccharomyces boulardii 250 mg Capsule 500 mg PO BID acetaminophen [Tylenol] 325 mg Tablet 650 mg PO Q6 PRN (Reason: pain 1-4/FEVER >100) albuterol sulfate 90 mcg/actuation HFA aerosol inhaler 2 puff INHALATION Q12 PRN (Reason: Shortness Of Breath Or Wheezing) Rx Instructions: rinse mouth after use Breztri Aerosphere 160-9-4.8 mcg/actuation HFA aerosol inhaler 2 inh INHALATION BID famotidine 20 mg tablet 20 mg PO AMHS gabapentin 300 mg capsule 300 mg PO TID oxymetazoline [Afrin (oxymetazoline)] 0.05 % Wood,Non-Aerosol 2 spray INTRANASAL Q12H PRN (Reason: epistaxis) albuterol sulfate 2.5 mg /3 mL (0.083 %) Solution For Nebulization 2.5 mg INHALATION .EVERY 2 HOURS PRN (Reason: SOB/wheeze) albuterol sulfate 2.5 mg /3 mL (0.083 %) Solution For Nebulization 2.5 mg INHALATION QID clonazepam 0.5 mg tablet 0.5 mg PO BID buspirone 7.5 mg tablet 7.5 mg PO TID estradiol 0.01 % (0.1 mg/gram) cream 1 applic VAGINAL 3XWK Rx Instructions: WEDNESDAY,WEDNESDAY,WEDNESDAY fluticasone propionate 50 mcg/actuation Wood,Suspension 2 spray INTRANASAL QAM Rx Instructions: administer into each nostril fentanyl 12 mcg/hr patch 72 hour 1 patch transdermal [id number] lidocaine HCl 10 mg/mL (1 %) Solution 2.1 ml IM QPM Rx Instructions: take for 10 days..mix with Ceftriaxone 1 gm prior to administration guaifenesin 100 mg/5 mL Liquid 300 mg PO Q4H PRN (Reason: Cough) Rx Instructions: 15 ml dose loratadine 10 mg Tablet 10 mg PO QAM ondansetron HCl 4 mg tablet 4 mg PO Q6 PRN (Reason: N/V) rosuvastatin 20 mg tablet 20 mg PO HS oxycodone 10 mg Tablet 10 mg PO Q6H PRN (Reason: pain 5-8) nystatin 100,000 unit/mL Suspension 5 ml PO QID Rx Instructions: swish and swallow morphine concentrate 100 mg/5 mL (20 mg/mL) Solution 10 mg PO .EVERY 30 MINUTES PRN (Reason: pain 9-10/SOB) morphine concentrate 20 mg/mL Syringe 5 mg PO QID Rx Instructions: 0.25 ml dose lorazepam 0.5 mg Tablet 0.5 mg PO .EVERY 1 HOUR PRN (Reason: restlessness/agitaion) atropine sulfate (PF) 1 % Dropperette 3 drp .EVERY 1 HOUR PRN (Reason: increased secretions) Rx Instructions: oral dose Referrals Referrals: [facility] [Primary Care Provider] -
[2024-02-13 10:04] LABS: Basophils # (auto) 0.08 K/uL (0.00-0.20); Basophils % (auto) 0.8 %; Eosinophils # (auto) 0.17 K/uL (0.00-0.50); Eosinophils % (auto) 1.7 %; Hematocrit (blood only) 39.7 % (37.0-47.0); Immature Granulocytes # (auto) 0.06 K/uL (0.01-0.20); Immature Granulocytes % (auto) 0.6 %; Lymphocytes # (auto) 1.98 K/uL (1.20-3.40); Lymphocytes % (auto) 19.8 %; Mean Corpuscular Hemoglobin 29.2 pg (25.0-34.0); Mean Corpuscular Hgb Conc 30.2 g/dL (32.0-36.0); Mean Corpuscular Volume 96.6 fL (80.0-100.0); Mean Platelet Volume 9.9 fL (9.4-12.4); Monocytes # (auto) 1.05 K/uL (0.11-0.59); Monocytes % (auto) 10.5 %; Neutrophils # (auto) 6.65 K/uL (1.40-6.50); Neutrophils % (auto) 66.6 %; Platelet Count 343 K/uL (130-400); RDW Coefficient of Variation 13.2 % (11.5-14.5); RDW Standard Deviation 47.4 fL (36.4-46.3); Red Blood Count 4.11 M/uL (4.20-5.40); White Blood Count 9.99 K/ul (4.8-10.8)
--- NOTE | 2024-02-13 10:15 | XRay Report ---
XR chest 1V portable CLINICAL HISTORY: Sepsis COMPARISON STUDY: Chest radiograph September 28, 2023. FINDINGS: There is no pneumothorax or pleural effusion. Emphysema is present. There are mild bibasila r opacities, greater on the right. There is no evidence for pulmonary edema. Cardiomediastinal silhou ette is stable. Widening of the right paratracheal stripe is likely due to vessels. IMPRESSION: 1. Bibasilar opacities. Atelectasis is favored although an infectious process could appear similar. 2. Emphysema. ACT 112: Negative or not required by law. Electronically signed by: Bismark Martines M.D. 02/13/2024 10:13 AM
[2024-02-13 10:17] LABS: Alanine Aminotransferase 15 U/L (7-52); Alkaline Phosphatase 48 U/L (34-104); Anion Gap 4 (3-11); Aspartate Aminotransferase 30 U/L (13-39); BUN Creatinine Ratio 15.9 (10-20); Bilirubin Direct 0.1 mg/dl (0-0.2); Bilirubin,Total 0.5 mg/dl (0.2-1.0); Blood Urea Nitrogen 18 mg/dl (6-23); Calcium 9.4 mg/dl (8.6-10.3); Carbon Dioxide 37 mmol/L (21-32); Chloride 94 mmol/L (98-107); Est GFR (African American) 53.5 ml/min; Est GFR (Non-African American) 46.2 ml/min; Glucose 107 mg/dl (70-99(Fasting)); Magnesium 2.1 mg/dl (1.7-2.4); Potassium 4.4 mmol/L (3.5-5.1); Sodium 135 mmol/L (136-145); Total Protein 6.8 gm/dl (6.0-8.3)
[2024-02-13 10:29] LABS: Troponin I High Sensitivity 351.3 pg/ml (0-14)
[2024-02-13] MEDS: OPTIRAY 320 125ml IV ONE (11:02)
[2024-02-13 11:04] LABS: Base Excess VBG 8.7 mEq/L; HCO3 VBG 39 mmol/L; Oxygen Saturation VBG 74.6 %; PCO2 VBG 80 mmHg (38-50); PO2 VBG 47 mmHg; pH VBG 7.29 (7.36-7.41)
--- NOTE | 2024-02-13 11:18 | CT Scan Report ---
CT OF THE HEAD WITHOUT CONTRAST CLINICAL HISTORY: Altered mental status. COMPARISON STUDY: MRI of the brain April 28, 2022. Head CT September 28, 2023. TECHNIQUE: Helical axial images of the head were obtained without IV contrast. Automated exposure con trol was utilized for the study. A dose lowering technique was utilized adhering to the principles o f ALARA. FINDINGS: No acute intracranial hemorrhage, midline shift or mass effect is present. White matter hyp odensities are unchanged and favor small vessel disease. The ventricular system is unremarkable. The basal cisterns are patent. No extra-axial collections are present. There are no findings to suggest a cute dural sinus thrombosis or acute territorial infarct. No significant calvarial abnormalities are present. IMPRESSION: No acute intracranial findings. ACT 112: Negative or not required by law. Electronically signed by: Bismark Martines M.D. 02/13/2024 11:16 AM
--- NOTE | 2024-02-13 11:25 | CT Scan Report ---
CT ANGIOGRAPHY OF THE CHEST, PULMONARY EMBOLUS PROTOCOL CLINICAL HISTORY: Altered mental status. Evaluate for pulmonary embolus. COMPARISON STUDY: Chest radiograph February 13, 2024 at 9:[address] November 30, 2009. TECHNIQUE: Following IV administration of 112 mL of Optiray, helical axial images of the chest were o btained utilizing the pulmonary embolus protocol. Maximal intensity projections and sagittal and cor onal reformats were viewed on an independent 3D workstation. IV contrast was administered without co mplication. Automated exposure control was utilized for the study. A dose lowering technique was ut ilized adhering to the principles of ALARA. CT DOSE: 1979.38 mGy.cm FINDINGS: Evaluation of the pulmonary arteries is nearly nondiagnostic given suboptimal opacificatio n. No central pulmonary embolus is identified. There is mild cardiomegaly and extensive coronary calc ification. No pericardial effusion. There is no thoracic lymphadenopathy. No pneumothorax or pleural effusion is present. Subpleural opacities are greater within the right lower lobe. Lungs are suboptim ally assessed due to respiratory motion. There is underlying moderate to severe emphysema. 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 Scattered secretions within lower lob e segmental bronchi are present. There are several old thoracic and lumbar spine compression fracture s. Abdomen and pelvis CT will be reported separately. There is extensive atherosclerotic plaque of th e thoracic aorta. IMPRESSION: 1. Near nondiagnostic evaluation of the pulmonary arteries due to suboptimal opacification. No centra l pulmonary embolus. If persistent clinical suspicion for pulmonary embolus, repeat study might be co nsidered. 2. Subpleural lower lobe opacity suggestive of atelectasis. 3. Emphysema. 4. 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 5. Scattered secretions within bilateral lower lobe segmental bronchi. ACT 112: Negative or not required by law. Electronically signed by: Bismark Martines M.D. 02/13/2024 11:22 AM
--- NOTE | 2024-02-13 11:31 | CT Scan Report ---
CT OF THE ABDOMEN AND PELVIS WITH CONTRAST CLINICAL HISTORY: Mid abdominal pain. Altered mental status. COMPARISON STUDY: CT of the abdomen and pelvis December 10, 2022. TECHNIQUE: Following IV administration of 112 mL of Optiray, axial images of the abdomen and pelvis w ere obtained from the lung bases to the proximal femurs. Images were reviewed in the axial, sagittal, and coronal planes. IV contrast was administered without complication. Automated exposure control w as utilized for the study. A dose lowering technique was utilized adhering to the principles of IVY Parry. FINDINGS: Please note that the chest CT will be reported separately. No pneumatosis, free air or port al venous gas is present. Liver, spleen, adrenal glands and pancreas are unremarkable. There is no pr ocess. There is a 2.6 cm water attenuation right renal lesion. This is consistent with a cyst. Modera te bilateral renal cortical thinning is present. The caliber and wall thickness of small and large johnie wel are normal. There is a moderate amount of stool within the right colon. The appendix is not visua lized. No inflammation is identified. There is extensive aortoiliac atherosclerotic plaque. No ascite s is present. There are no fluid collections. Old T12 and L1 compression fractures are unchanged. No acute fractures are identified within visualized skeletal structures. This study is mildly compromise d by motion artifact. Bladder wall thickening is unchanged. IMPRESSION: 1. No acute process within the abdomen or pelvis. 2. No bowel obstruction. No bowel wall thickening. ACT 112: Negative or not required by law. Electronically signed by: Bismark Martines M.D. 02/13/2024 11:28 AM
[2024-02-13] MEDS: ALBUT/IPRATROP 3MG/0.5MG NEB 3 ML VIAL NEB STA (11:47)
--- NOTE | 2024-02-13 12:09 | History & Physical Report ---
Date of Service February 13, 2024 Assessment & Plan (1) Acute respiratory failure with hypoxia and hypercapnia: Plan: Secondary to CO2 encephalopathy in setting of opiates/clonazepam/gabapentin +/- UTI +/- aspiration +/- COPD exacerbation Improved with Narcan and BiPAP Repeat ABG improving - will turn down FiO2 from 60% -> 40%, repeat ABG in 6 hours Aim O2 sats 88-92% (2) Urinary tract infection: Plan: IV Zosyn Follow up urine/blood cultures. GNB already growing in urine culture from 02/10. (3) Opiate overdose: Plan: Suspect contributed towards sedation in setting of infection/COPD exacerbation leading to CO2 retention Hold all opiates at this time Daughter concerned about chronic opiate use but reportedly needs this for adequate pain control - consider restarting Fentanyl patch once more stable as tolerates well outside of infections Hold all respiratory sedatives at this time - restart gabapentin/clonazepam pending clinical course to avoid withdrawal but remains to sedated to restart at time of admission (4) COPD exacerbation: Plan: Possible diagnosis, wheezing on exam noted by EMS and ER provider, may mostly be due to obtundation as already significantly improved from description of pre- admission exams Solu-Medrol 125mg IV now then 40mg IV daily, consider short course given rapid improvement, notably 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 Duoneb q4h Formoterol/budesonide nebs BID Azithromycin 500mg IV daily for 3 days (5) Metabolic encephalopathy: Plan: Secondary to CO2 retention - rapidly improved following resolution of this (6) Elevated troponin: Plan: Trend troponin, TTE No chest pain to suggest ACS EKG with minimal changes, suspected demand-ischemia in setting of significant hypoxia (7) Aspiration pneumonia: Plan: Suspect mostly just aspiration pneumonitis but will also be covered for pneumonia with IV Zosyn NPO for first day of admission and prior to SLT consult, can eat once much more awake and seen by SLT (8) Dysphagia: Plan: Unable to get a good history of this from patient at this time but she has a history of esophageal strictures If having current problems consider GI consult (9) GERD (gastroesophageal reflux disease): Plan: History of GI bleed Pantoprazole 40mg IV BID, switch back to PO when able to take PO meds (10) Hyperlipidemia: Plan: Continue rosuvastatin (11) Anxiety: Plan: Hold all respiratory suppression medications at this time, ok to continue lexapro Plan VTE Prophyalxis - Lovenox 40mg SQ daily Diet - NPO Disposition - admit to PCU Admission and Anticipated Discharge Date Admission Date: February 12, 2024 History of Present Illness Chief Complaint: Altered mental state / obtunded Respiratory failure Primary Care Provider: [facility] Ana Nichols is a 78 year old resident of [facility] care home with severe COPD who presents to the ER with hypoxia and altered mental state. She is on 3LPM O2 at baseline reportedly O2 sats were 68%. Per report she was unarousable this morning and therefore sent to the ER. Unable to obtain any history from the patient. Per med rec from [facility] her Fentanyl, clonazepam and gabapentin doses not recently changed however she received x3 doses of oxycodone 10mg in the last 24 hours (previous days only 0-1 doses a day). She has had multiple prior hospitalizations with UTIs or COPD exacerbations causing acute mental status changes. In the ER she was noted to be lethargic with pinpoint pupils therefore Fentanyl patch was removed and Narcan given - responsiveness improved dramatically following this. On discussion with her daughter at bedside. She reports asking for a urine test 3 weeks ago to check for a UTI as her mother was getting goofy. She reports her mother was complaining of abdominal pain on Wednesday and she was disappointed she did not get a scan. She is concerned about her mother's opiate use and reports only recently finding out her mother was on a Fentanyl patch thinking it was a nicotine patch. She reports being concerned about her mothers care at [facility]. Discussed care with provider at [facility] (Dr Everett) - patient was complaining of abdominal pain on Wednesday. Transfer to the ER was declined by the patient. Urine analysis was taken at that time given prior history of UTIs. Reportedly off opiates she has chronic pain and is extremely uncomfortable and she has managed tolerate current level of opiates without issues previously. Gets anxious/shaky off clonazepam. No longer on hospice care but general goal is comfort. Allergies Allergy/AdvReac Type Severity Reaction Status Date / Time metoclopramide Allergy Severe "lungs Verified 02/13/24 16:13 collapsed" cortisone Allergy Intermediate swelling Verified 12/10/22 16:01 salicylates Allergy Intermediate caused Verified 02/13/24 16:13 bleeding, can take EC aspirin Corticosteroids AdvReac Intermediate swelling Verified 12/10/22 16:01 (Glucocorticoids) Home Medications Medication Instructions Recorded Confirmed Type clopidogrel 75 mg tablet (Plavix) 75 mg PO QAM 08/15/19 02/13/24 History cyanocobalamin (vitamin B-12) 500 500 mcg sublingual QAM 08/15/19 02/13/24 History mcg sublingual tablet escitalopram oxalate 5 mg tablet 5 mg PO QAM 08/15/19 02/13/24 History (Lexapro) ferrous sulfate 325 mg (65 mg 325 mg PO QAM 08/15/19 02/13/24 History iron) tablet pantoprazole 40 mg tablet,delayed 40 mg PO QAM 12/04/19 02/13/24 History release (Protonix) diltiazem HCl 60 mg 60 mg PO QAM 02/17/22 02/13/24 History capsule,extended release 12 hr acetaminophen 325 mg tablet 650 mg PO Q6H PRN pain 1-4/FEVER 10/22/22 02/13/24 History (Tylenol) >100 guaifenesin 600 mg tablet, 600 mg PO Q12H 10/22/22 02/13/24 History extended release 12 hr diclofenac sodium 1 % topical gel See Rx Instructions .Route .COMPLEX 12/10/22 02/13/24 History (Voltaren Arthritis Pain) prednisone 10 mg tablet 10 mg PO QAM 12/10/22 02/13/24 History albuterol sulfate 2.5 mg/3 mL 2.5 mg inhalation UD PRN SOB/wheeze 09/28/23 02/13/24 History (0.083 %) solution for nebulization atropine sulfate (PF) 1 % eye See Rx Instructions .Route 09/28/23 02/13/24 History drops in a dropperette .COMPLEX PRN increased secretions buspirone 7.5 mg tablet 7.5 mg PO TID 09/28/23 02/13/24 History clonazepam 0.5 mg tablet 0.5 mg PO BID 09/28/23 02/13/24 History estradiol 0.01% (0.1 mg/gram) 1 applic vaginal 3XWK 09/28/23 02/13/24 History vaginal cream famotidine 20 mg tablet 20 mg PO AMHS 09/28/23 02/13/24 History fentanyl 12 mcg/hr transdermal 1 patch transdermal [id number] 09/28/23 02/13/24 History patch fluticasone propionate 50 2 spray intranasal QAM 09/28/23 02/13/24 History mcg/actuation nasal spray,suspension gabapentin 300 mg capsule 300 mg PO TID 09/28/23 02/13/24 History guaifenesin 100 mg/5 mL oral liquid 300 mg PO Q4H PRN Cough 09/28/23 02/13/24 History loratadine 10 mg tablet 10 mg PO QAM 09/28/23 02/13/24 History nystatin 100,000 unit/mL oral 5 ml PO QID 09/28/23 02/13/24 History suspension ondansetron HCl 4 mg tablet 4 mg PO Q6H PRN Nausea And Vomiting 09/28/23 02/13/24 History oxycodone 10 mg tablet 10 mg PO Q6H PRN pain (5-10) 09/28/23 02/13/24 History oxymetazoline 0.05 % nasal spray 2 spray intranasal Q12H PRN 09/28/23 02/13/24 History (Afrin (oxymetazoline)) epistaxis rosuvastatin 20 mg tablet 20 mg PO HS 09/28/23 02/13/24 History Saccharomyces boulardii 250 mg 250 mg PO BID 02/13/24 02/13/24 History capsule (Florastor) albuterol sulfate 90 mcg/actuation 2 inh inhalation Q12H PRN 02/13/24 02/13/24 History breath activated powder inhaler SOB/Wheezing (ProAir RespiClick) arformoterol 15 mcg/2 mL solution 15 mcg inhalation BID 02/13/24 02/13/24 History for nebulization (Brovana) bisacodyl 10 mg rectal suppository 10 mg MN DAILY PRN Constipation 02/13/24 02/13/24 History (Dulcolax (bisacodyl)) budesonide 0.5 mg/2 mL suspension 0.5 mg inhalation BID 02/13/24 02/13/24 History for nebulization eucalyptus-menthol oral mucosal 1 mika mucous membrane Q2H PRN Cough 02/13/24 02/13/24 History lozenge ipratropium 0.5 mg-albuterol 3 mg 3 ml inhalation QID 02/13/24 02/13/24 History (2.5 mg base)/3 mL nebulization soln loperamide 2 mg tablet 2 mg PO Q2H PRN Diarrhea 02/13/24 02/13/24 History magnesium hydroxide 400 mg/5 mL See Rx Instructions .Route 02/13/24 02/13/24 History oral suspension (Milk of Magnesia) .COMPLEX PRN Constipation sodium chloride-aloe vera nasal 1 spray intranasal TID PRN Dry 02/13/24 02/13/24 History spray ([place] Saline Gel nasal spray) Nares sodium phosphates 19 gram-7 118 ml MN DAILY PRN Constipation 02/13/24 02/13/24 History gram/118 mL enema (Fleet Enema) sucralfate 100 mg/mL oral 1 g PO BID 02/13/24 02/13/24 History suspension Past Med/Surg History Medical History correction resident resident of [facility] TIA (transient ischemic attack) History of GI bleed History of anemia History of esophageal dilatation Diarrhea Difficulty swallowing PVD (peripheral vascular disease) GERD (gastroesophageal reflux disease) Osteoporosis Arthritis Anxiety SOB (shortness of breath) on exertion Chronic obstructive pulmonary disease OXYGEN 3-4 L/MIN CONTINUOUSLY CAD (coronary artery disease) F/U DR Angélica LEONARDO Hyperlipidemia Hypertension History of esophageal stricture Asymptomatic bilateral carotid artery stenosis "s/p bilateral carotid endarterectomy" Surgical History H/O vascular surgery RIGHT ILIAC ARTERY STENT PLACEMENT H/O knee surgery History of appendectomy History of esophagogastroduodenoscopy (EGD) History of colonoscopy History of cataract surgery R/L H/O hemorrhoidectomy H/O carotid endarterectomy R/L History of cardiac cath NO STENTS Family History Other No family history of adverse response to anesthesia Social History Smoking Status: Former smoker Age Started Using Tobacco: 19; packs per day: 2; Cigarettes Per Day: 5-10 CIG a day ADVISED; Do You Dip or Chew Tobacco: Yes; Hx Alcohol Use: No Hx Substance Use: No Preferred Language: Korean Communication Ability: Impaired Inbound Sales Advisor Required: No Beliefs That Will Affect Care: None marital status: / Current Living Situation: Jail Current Living Situation Comment: [facility] How many Children do You have: 1 Other Information That Helps Us Care for You: No Feels Safe at Home: Declines to Answer Assistive Devices: Oxygen - Continuous and Walker Review of Systems Review of Systems: Unobtainable due to cognitive status Physical Exam Constitutional: well developed and + acute distress (respiratory); + not well nourished Eyes: PERRL, conjunctivae normal, anicteric sclerae ENMT: Mouth: + dry oral mucous membranes Respiratory: + respiratory distress, + labored breath ing, + uses accessory muscles and + prolonged expiratory phase; + not able to speak in complete sentence Auscultation: + diminished lung sounds (throughout); no crackles, no rales, no rhonchi and no wheezes Cardiovascular: Rate/Rhythm: regular rate and regular rhythm Heart Sounds: no murmur Extremities: normal capillary refill; no calf tenderness and no pedal edema Gastrointestinal (Abdomen): normal bowel sounds, soft, nontender, no hepatosplenomegaly Skin: no rashes, warm and dry (no areas of cellulitis seen) Neurologic: awake and + confused Psychiatric: Orientation: alert; + not oriented x 3 Genitourinary: no CVA tenderness Results & Data Results & Data Vital Signs (Past 12 Hours) Vital Signs Temp Pulse Resp BP Pulse Ox O2 Del Method O2 Flow Rate 02/13/24 11:47 88 20 96 02/13/24 09:30 104 H 20 90 15 02/13/24 09:29 36.6 C 119 H 11 L 140/90 68 L Nasal Cannula 3 02/13/24 09:27 107 H 02/13/24 09:23 140/90 02/13/24 09:23 114 H 19 84 L 15 02/13/24 09:20 113 H 10 L 89 L 15 02/13/24 09:19 157 H 11 L 77 L 8 FiO2 02/13/24 11:47 60 02/13/24 09:30 02/13/24 09:29 02/13/24 09:27 02/13/24 09:23 02/13/24 09:23 02/13/24 09:20 02/13/24 09:19 Laboratory Results Abnormal lab results 02/13/24 02/13/24 02/13/24 Range/Units 09:35 10:44 11:37 RBC 4.11 L (4.20-5.40) M/uL MCHC 30.2 L (32.0-36.0) g/dL RDW Std Deviation 47.4 H (36.4-46.3) fL Neut # (Auto) 6.65 H (1.40-6.50) K/uL Mccone # (Auto) 1.05 H (0.11-0.59) K/uL ABG pH (7.35-7.45) ABG pCO2 (35-46) mmHg ABG pO2 (80-95) mmHg ABG HCO3 (19-24) mmol/L ABG O2 Saturation (90-95) % ABG Base Excess (-9-1.8) mEq/L VBG pH 7.29 L (7.36-7.41) VBG pCO2 80 H (38-50) mmHg Sodium 135 L (136-145) mmol/L Chloride 94 L (98-107) mmol/L Carbon Dioxide 37 H (21-32) mmol/L Glucose 107 H (70-99(Fasting)) mg/dl Troponin I High Sens 351.3 H* 463.0 H* D (0-14) pg/ml Urine Appearance (Clear) Urine Protein (Negative) Urine Blood (Negative) Urine Nitrite (Negative) Ur Leukocyte Esterase (Negative) Urine WBC (Auto) (0-5) /hpf U Hyaline Cast (Auto) (0-2) /lpf Urine Bacteria (Auto) (None Seen) Urine Mucus (None Prsent) Urine Yeast (None Prsent) 02/13/24 02/13/24 02/13/24 Range/Units 12:29 18:19 18:23 RBC (4.20-5.40) M/uL MCHC (32.0-36.0) g/dL RDW Std Deviation (36.4-46.3) fL Neut # (Auto) (1.40-6.50) K/uL Mccone # (Auto) (0.11-0.59) K/uL ABG pH 7.32 L (7.35-7.45) ABG pCO2 67 H 49 H (35-46) mmHg ABG pO2 181 H 97 H (80-95) mmHg ABG HCO3 35 H 30 H (19-24) mmol/L ABG O2 Saturation 99.4 H 98.4 H (90-95) % ABG Base Excess 6.6 H 4.5 H (-9-1.8) mEq/L VBG pH (7.36-7.41) VBG pCO2 (38-50) mmHg Sodium (136-145) mmol/L Chloride (98-107) mmol/L Carbon Dioxide (21-32) mmol/L Glucose (70-99(Fasting)) mg/dl Troponin I High Sens 280.8 H* D (0-14) pg/ml Urine Appearance (Clear) Urine Protein (Negative) Urine Blood (Negative) Urine Nitrite (Negative) Ur Leukocyte Esterase (Negative) Urine WBC (Auto) (0-5) /hpf U Hyaline Cast (Auto) (0-2) /lpf Urine Bacteria (Auto) (None Seen) Urine Mucus (None Prsent) Urine Yeast (None Prsent) 02/13/24 Range/Units Unknown RBC (4.20-5.40) M/uL MCHC (32.0-36.0) g/dL RDW Std Deviation (36.4-46.3) fL Neut # (Auto) (1.40-6.50) K/uL Mccone # (Auto) (0.11-0.59) K/uL ABG pH (7.35-7.45) ABG pCO2 (35-46) mmHg ABG pO2 (80-95) mmHg ABG HCO3 (19-24) mmol/L ABG O2 Saturation (90-95) % ABG Base Excess (-9-1.8) mEq/L VBG pH (7.36-7.41) VBG pCO2 (38-50) mmHg Sodium (136-145) mmol/L Chloride (98-107) mmol/L Carbon Dioxide (21-32) mmol/L Glucose (70-99(Fasting)) mg/dl Troponin I High Sens (0-14) pg/ml Urine Appearance Cloudy A (Clear) Urine Protein Trace H (Negative) Urine Blood 2+ H (Negative) Urine Nitrite Positive A (Negative) Ur Leukocyte Esterase 1+ H (Negative) Urine WBC (Auto) >50 H (0-5) /hpf U Hyaline Cast (Auto) 3-5 H (0-2) /lpf Urine Bacteria (Auto) 4+ H (None Seen) Urine Mucus Present A (None Prsent) Urine Yeast Present A (None Prsent) Diagnostic Findings CT OF THE HEAD WITHOUT CONTRAST CLINICAL HISTORY: Altered mental status. COMPARISON STUDY: MRI of the brain April 28, 2022. Head CT September 28, 2023. TECHNIQUE: Helical axial images of the head were obtained without IV contrast. Automated exposure control was utilized for the study. A dose lowering technique was utilized adhering to the principles of ALARA. FINDINGS: No acute intracranial hemorrhage, midline shift or mass effect is present. White matter hypodensities are unchanged and favor small vessel disease. The ventricular system is unremarkable. The basal cisterns are patent. No extra-axial collections are present. There are no findings to suggest acute dural sinus thrombosis or acute territorial infarct. No significant calvarial abnormalities are present. IMPRESSION: No acute intracranial findings. XR chest 1V portable CLINICAL HISTORY: Sepsis COMPARISON STUDY: Chest radiograph September 28, 2023. FINDINGS: There is no pneumothorax or pleural effusion. Emphysema is present. There are mild bibasilar opacities, greater on the right. There is no evidence for pulmonary edema. Cardiomediastinal silhouette is stable. Widening of the right paratracheal stripe is likely due to vessels. IMPRESSION: 1. Bibasilar opacities. Atelectasis is favored although an infectious process could appear similar. 2. Emphysema. CT ANGIOGRAPHY OF THE CHEST, PULMONARY EMBOLUS PROTOCOL CLINICAL HISTORY: Altered mental status. Evaluate for pulmonary embolus. COMPARISON STUDY: Chest radiograph February 13, 2024 at 9:[address] November 30, 2009. TECHNIQUE: Following IV administration of 112 mL of Optiray, helical axial images of the chest were obtained utilizing the pulmonary embolus protocol. Maximal intensity projections and sagittal and coronal reformats were viewed on an independent 3D workstation. IV contrast was administered without complication. Automated exposure control was utilized for the study. A dose lowering technique was utilized adhering to the principles of ALARA. CT DOSE: 1979.38 mGy.cm FINDINGS: Evaluation of the pulmonary arteries is nearly nondiagnostic given suboptimal opacification. No central pulmonary embolus is identified. There is mild cardiomegaly and extensive coronary calcification. No pericardial effusion. There is no thoracic lymphadenopathy. No pneumothorax or pleural effusion is present. Subpleural opacities are greater within the right lower lobe. Lungs are suboptimally assessed due to respiratory motion. There is underlying moderate to severe emphysema. 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 Scattered secretions within lower lobe segmental bronchi are present. There are several old thoracic and lumbar spine compression fractures. Abdomen and pelvis CT will be reported separately. There is extensive atherosclerotic plaque of the thoracic aorta. IMPRESSION: 1. Near nondiagnostic evaluation of the pulmonary arteries due to suboptimal opacification. No central pulmonary embolus. If persistent clinical suspicion for pulmonary embolus, repeat study might be considered. 2. Subpleural lower lobe opacity suggestive of atelectasis. 3. Emphysema. 4. 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 5. Scattered secretions within bilateral lower lobe segmental bronchi. CT OF THE ABDOMEN AND PELVIS WITH CONTRAST CLINICAL HISTORY: Mid abdominal pain. Altered mental status. COMPARISON STUDY: CT of the abdomen and pelvis December 10, 2022. TECHNIQUE: Following IV administration of 112 mL of Optiray, axial images of the abdomen and pelvis were obtained from the lung bases to the proximal femurs. Images were reviewed in the axial, sagittal, and coronal planes. IV contrast was administered without complication. Automated exposure control was utilized for the study. A dose lowering technique was utilized adhering to the principles of ALARA. FINDINGS: Please note that the chest CT will be reported separately. No pneumatosis, free air or portal venous gas is present. Liver, spleen, adrenal glands and pancreas are unremarkable. There is no process. There is a 2.6 cm water attenuation right renal lesion. This is consistent with a cyst. Moderate bilateral renal cortical thinning is present. The caliber and wall thickness of small and large bowel are normal. There is a moderate amount of stool within the right colon. The appendix is not visualized. No inflammation is identified. There is extensive aortoiliac atherosclerotic plaque. No ascites is present. There are no fluid collections. Old T12 and L1 compression fractures are unchanged. No acute fractures are identified within visualized skeletal structures. This study is mildly compromised by motion artifact. Bladder wall thickening is unchanged. IMPRESSION: 1. No acute process within the abdomen or pelvis. 2. No bowel obstruction. No bowel wall thickening. Medications Administered ER medications given: DuoNeb 3 mill neb Normal saline 1000 mL bolus ECG Rate (beats per minute): 107 Rhythm: sinus tachycardia Findings: + T-wave inversion (Anterior) Comparison ECG Date: from (September 28, 2023) Change: the following changes noted (Inverted T waves in anterior leads replaced nonspecific T wave flattening) Code Status & VTE Plan Code Status Full VTE Prophylaxis Plan VTE Prophylaxis will be ordered: Yes Critical Care Time Critical Care Time: Yes Total Critical Care Time: 35 PG Care Time/CCT Total # of Minutes Spent Total Time Spent with Patient: Total time spent is greater than 50% in coordination of care (as documented) at patient's floor/unit and/or counseling patient: Critical Care Time: Yes Total Critical Care Time: 35 Coding Level of Care Code 33346 INT INP/OBS CARE 3/75MIN Diagnoses Acute respiratory failure with hypoxia and hypercapnia J96.01; J96.02 Urinary tract infection with hematuria, site unspecified N39.0; R31.9 Hematuria presence: with hematuria Urinary tract infection type: site unspecified Opiate overdose T40.601A COPD exacerbation J44.1 Metabolic encephalopathy G93.41 Elevated troponin R79.89 Aspiration pneumonia J69.0 Dysphagia R13.10 GERD (gastroesophageal reflux disease) K21.9 Hyperlipidemia E78.5 Anxiety F41.9 Additional Codes Critical Care Time - Critical Care Time: Yes ([id number]) (2) Urinary tract infection Hematuria presence: with hematuria Urinary tract infection type: site unspecified Qualified Code(s): N39.0 - Urinary tract infection, site not specified; R31.9 - Hematuria, unspecified
[2024-02-13] MEDS: SODIUM CHLORIDE 0.9% 1,000 ML IV ONE (12:23)
[2024-02-13] MEDS: ONDANSETRON INJ 2 MG/ML 2 ML VIAL ONE (12:23)
[2024-02-13] MEDS: AMPICILLIN/SULBACTAM SOD 3,000 MG in SODIUM CHLOR 0.9% MINI-B 100 ML IV STA (12:24)
[2024-02-13] MEDS: ONDANSETRON INJ 2 MG/ML 2 ML VIAL IV STA (12:30)
[2024-02-13] MEDS: PIPERACILLIN/TAZOBACTAM 4.5 GM/100 ML BAG IV ONE (12:32)
[2024-02-13] MEDS: PIPERACILLIN/TAZOBACTAM 4.5 GM/100ML D5W IV ONE (12:32)
[2024-02-13 12:41] LABS: Allen Test Pos (Pos); Base Excess ABG 6.6 mEq/L (-9-1.8); HCO3 ABG 35 mmol/L (19-24); Oxygen Saturation ABG 99.4 % (90-95); PCO2 ABG 67 mmHg (35-46); PO2 ABG 181 mmHg (80-95); pH ABG 7.32 (7.35-7.45)
[2024-02-13 13:22] LABS: Appearance Urine Cloudy (Clear); Bacteria Urine Automated 4+ (None Seen); Bilirubin Urine Negative (Negative); Blood Urine 2+ (Negative); Color Urine Yellow; Epithelial Cell Urine Auto 0-2 /hpf (0-2); Glucose Urine UA Negative (Negative); Ketones Urine Negative (Negative); Leukocyte Esterase Urine 1+ (Negative); Nitrite Urine Positive (Negative); Protein Urine Trace (Negative); RBC Urine Automated 0-2 /hpf (0-2); Urobilinogen Urine Negative (Negative); WBC Urine Automated >50 /hpf (0-5); pH Urine 5.5 (4.5-7.5)
[2024-02-13] MEDS: AZITHROMYCIN 500 MG in DEXTROSE 5% 250 ML IV ONE (13:32)
[2024-02-13] MEDS: methylPREDNISolone 125 MG/2 ML VIAL IV STA (13:32)
[2024-02-13] MEDS: PANTOprazole 40 MG in SYRINGE 0 ML IV ONE (13:32)
[2024-02-13 13:43] LABS: Mucus Urine Present (None Prsent)
[2024-02-13 14:20] LABS: Influenza A virus by PCR Negative (Neg); Influenza B virus by PCR Negative (Neg); RSV by PCR Negative (Neg); SARS CoV2 RNA(COVID-19) Ceph NEGATIVE (Negative)
--- NOTE | 2024-02-13 15:00 | XCELERA ---
[id number] \\[id number]
[2024-02-13] MEDS ORDERED: Patient's HEIGHT &/or WEIGHT Needed STA (16:28)
[2024-02-13] MEDS: ALBUT/IPRATROP 3MG/0.5MG NEB 3 ML VIAL NEB SCH (16:46)
[2024-02-13] MEDS: FAMOTIDINE 20MG IV PUSH 20 MG/5 ML SYR IV STA (17:10)
[2024-02-13] MEDS: PIPERACILLIN/TAZOBACTAM 4.5 GM in DEXTROSE 5% MINI-B 100 ML IV SCH (17:10)
[2024-02-13 18:35] LABS: Base Excess ABG 4.5 mEq/L (-9-1.8); HCO3 ABG 30 mmol/L (19-24); Oxygen Saturation ABG 98.4 % (90-95); PCO2 ABG 49 mmHg (35-46); PO2 ABG 97 mmHg (80-95)
[2024-02-13 18:36] LABS: Allen Test Pos (Pos)
[2024-02-13] MEDS: FORMOTEROL 20 MCG/2 ML VIAL NEB SCH (19:21)
[2024-02-13] MEDS: BUDESONIDE 0.5 MG/2 ML VIAL (PULMICORT) NEB SCH (19:21)
[2024-02-13] MEDS ORDERED: guaiFENesin SUGAR FREE 100 MG/5 ML UDC PO PRN (20:21)
[2024-02-13] MEDS: ENOXAPARIN INJ 40 MG/0.4 ML SYR SQ SCH (22:12)
[2024-02-13] MEDS: DICLOFENAC SOD 1% GEL 100 GM TUBE EXT SCH ×2 (22:13)
[2024-02-13] MEDS: FAMOTIDINE 20 MG TAB PO SCH (22:14)
[2024-02-13] MEDS: guaiFENesin 600 MG TABCR PO SCH (22:14)
[2024-02-13] MEDS: ROSUVASTATIN CALCIUM 20 MG TAB PO SCH (22:15)
[2024-02-13] MEDS: SUCRALFATE 1 GM/10 ML UDC PO SCH (22:15)
[2024-02-14] MEDS: LACTATED RINGER'S 1,000 ML IV SCH (01:54)
--- NOTE | 2024-02-14 06:01 | Electrocardiogram Report ---
Test Reason : Blood Pressure : / mmHG Vent. Rate : 107 BPM Atrial Rate : 107 BPM P-R Int : 152 ms QRS Dur : 080 ms QT Int : 344 ms P-R-T Axes : 054 043 062 degrees QTc Int : 459 ms Sinus tachycardia Anterior infarct , age undetermined Abnormal ECG When compared with ECG of 28-SEP-2023 19:23, Anterior infarct is now Present Inverted T waves have replaced nonspecific T wave abnormality in Anterior leads Confirmed by Kelvin Talbert ([id number]) on 02/14/2024 6:01:12 AM Referred By: Confirmed By:Kelvin Talbert
[2024-02-14 06:04] LABS: Base Excess VBG 8.7 mEq/L; HCO3 VBG 35 mmol/L; Oxygen Saturation VBG 95.4 %; PCO2 VBG 54 mmHg (38-50); PO2 VBG 68 mmHg; pH VBG 7.42 (7.36-7.41)
[2024-02-14 06:33] LABS: BUN Creatinine Ratio 21.6 (10-20); Calcium 8.6 mg/dl (8.6-10.3); Creatinine Clr Calc Pharmacy 48.8 ml/min; Est GFR (African American) 89.3 ml/min; Est GFR (Non-African American) 77.1 ml/min; Troponin I High Sensitivity 145.3 pg/ml (0-14)
[2024-02-14 06:50] LABS: Basophils # (auto) 0.01 K/uL (0.00-0.20); Basophils % (auto) 0.2 %; Hematocrit (blood only) 32.1 % (37.0-47.0); Hemoglobin 10.1 g/dl (12.0-16.0); Immature Granulocytes # (auto) 0.04 K/uL (0.01-0.20); Lymphocytes # (auto) 0.36 K/uL (1.20-3.40); Lymphocytes % (auto) 8.6 %; Mean Corpuscular Hemoglobin 29.3 pg (25.0-34.0); Mean Corpuscular Hgb Conc 31.5 g/dL (32.0-36.0); Mean Platelet Volume 9.9 fL (9.4-12.4); Monocytes # (auto) 0.16 K/uL (0.11-0.59); Monocytes % (auto) 3.8 %; Neutrophils # (auto) 3.64 K/uL (1.40-6.50); Neutrophils % (auto) 86.4 %; Platelet Count 259 K/uL (130-400); RDW Coefficient of Variation 12.9 % (11.5-14.5); RDW Standard Deviation 43.6 fL (36.4-46.3); Red Blood Count 3.45 M/uL (4.20-5.40); White Blood Count 4.21 K/ul (4.8-10.8)
[2024-02-14] MEDS ORDERED: methylPREDNISolone 125 MG/2 ML VIAL IV SCH (09:00)
[2024-02-14] MEDS: dilTIAZem HCl 60 MG TAB PO SCH (10:12)
[2024-02-14] MEDS: CLOPIDOGREL BISULFATE 75 MG TAB PO SCH (10:12)
[2024-02-14] MEDS: LORATADINE 10 MG TAB PO SCH (10:13)
[2024-02-14] MEDS: ESCITALOPRAM OXALATE 10 MG TAB PO SCH (10:13)
[2024-02-14] MEDS: PANTOprazole 40 MG TAB PO SCH (10:13)
[2024-02-14] MEDS: FLUTICASONE PROPIONATE NA SPR 16 GM BTL NAE SCH (10:30)
[2024-02-14] MEDS: methylPREDNISolone 40 MG in SYRINGE 0 ML IV SCH (10:30)
[2024-02-14] MEDS: AZITHROMYCIN 500 MG in DEXTROSE 5% 250 ML IV SCH (13:25)
[2024-02-14] MEDS ORDERED: clonazePAM 0.5 MG TAB PO PRN (15:05)
--- NOTE | 2024-02-14 15:13 | Hospitalist Progress Note ---
Date of Service February 14, 2024 Assessment & Plan (1) Acute respiratory failure with hypoxia and hypercapnia: Plan: Acute and chronic respiratory failure with hypoxia and hypercapnia-typically is on 3 L nasal cannula O2 at baseline With hypoxia into the 60s on arrival Secondary to CO2 encephalopathy in setting of opiates/clonazepam/gabapentin +/- UTI +/- aspiration +/- COPD exacerbation Improved with Narcan and BiPAP CT angiogram chest negative for PE but shows atelectasis, tracheobronchial malacia, secretions in the lower airways Repeat ABG improved and patient is now weaned to 1 L nasal cannula and mentating appropriately Okay to resume fentanyl patch, gabapentin, and at bedtime clonazepam as needed. Caution with oxycodone in the future for as needed use Treating aspiration pneumonia with antibiotics (2) Urinary tract infection: Plan: Patient has been having urinary tract infection symptoms for 3 weeks as per patient's daughter to include lower abdominal pain and urinary urgency. No evidence of sepsis here and CT abdomen/pelvis negative for acute findings except for moderate amount of stool in the right colon and unchanged bladder wall thickening IV Zosyn was started and urine culture from 02/10 now growing E. coli resistant to luli quinolones Urine culture from 02/12 with gram-negative rods-ID and sensitivity pending-will follow Blood cultures no growth to date Discontinue Zosyn and start IV Unasyn which will cover for aspiration pneumonia as well as E. coli UTI Can use Pyridium as needed for bladder pain-will order (3) Metabolic encephalopathy: Plan: Secondary to CO2 retention -now completely resolved (4) Opiate overdose: Plan: Suspect contributed towards sedation in setting of infection/COPD exacerbation leading to CO2 retention. She has been on fentanyl patch for at least the last 4 months as per what I can tell from refill history She is also been on benzodiazepines mostly at bedtime for many years as per daughter and her gabapentin is also chronic Suspect the overdose was from the oxycodone as needed use-she typically takes it once a day as per previous reports but received it 2 or 3 times on the day prior to admission for pain from UTI Okay to resume fentanyl patch for chronic use, but hold off on any further as needed oxycodone use-discontinued (5) COPD exacerbation: Plan: Possible diagnosis, wheezing on exam noted by EMS and ER provider, may mostly be due to obtundation and is already resolved and patient is awake and alert Solu-Medrol IV was given x 2 doses, but can now resume home prednisone 10mg PO daily and stop Solu-Medrol Continue Duoneb q4h and formoterol/budesonide nebs BID Azithromycin 500mg IV daily for 3 days-last day will be 02/14 (6) Elevated troponin: Plan: Troponin mildly elevated and peaked at 463, ECG with sinus tachycardia and T wave inversions anteriorly, echocardiogram with preserved EF, no wall motion abnormalities, small old pericardial effusion, mild RV dilatation with mild dysfunction No chest pain to suggest ACS suspected demand-ischemia in setting of significant hypoxia (7) Aspiration pneumonia: Plan: Suspect mostly just aspiration pneumonitis but will also be covered for pneumonia with IV Zosyn and now changed to IV Unasyn Seen by speech therapy today and much more awake and alert-diet advanced to pured foods and thin liquids but plan for video swallow on 02/14 With known Schatzki's ring overdue for EGD-needs outpatient GI (8) Dysphagia: Plan: As above (9) GERD (gastroesophageal reflux disease): Plan: History of GI bleed Pantoprazole 40mg IV BID, switch back to PO today Continue sucralfate and Pepcid (10) Hyperlipidemia: Plan: Continue rosuvastatin (11) Anxiety: Plan: No acute issues Continue lexapro Resume clonazepam as needed for sleep and resume BuSpar (12) HTN (hypertension): Plan: BP is controlled to mildly elevated Continue diltiazem (13) Status post insertion of iliac artery stent: Plan: Continue Plavix, statin Plan VTE Prophyalxis - Lovenox 40mg SQ daily Disposition -continued stay on PCU, but improving, possible discharge back to [facility] tomorrow Discussed care at length with daughter at bedside on 02/13 Admission and Anticipated Discharge Date Admission Date: February 13, 2024 Subjective Patient reports feeling well, no complaints. Denies any pain. Her daughter thinks that she will deny pain because she just wants to leave the hospital. Patient denies shortness of breath or cough. I spent the majority of the time speaking with her daughter at bedside about her discontent with patient's current care at the [facility]. She reports her mom has been having UTI symptoms for 3 weeks and thinks she got extra oxycodone given because of the abdominal pain from the UTI. Telemetry with normal sinus rhythm with rates in the 90s Physical Exam Constitutional: WD/WN, vitals as above Respiratory: normal respiratory effort, lungs clear to auscultation Cardiovascular: RRR, no murmur, no edema Gastrointestinal (Abdomen): normal bowel sounds, soft, nontender, no hepatosplenomegaly Psychiatric: A+Ox3, euthymic affect Results & Data Results & Data Vital Signs (Past 12 Hours) Vital Signs Temp Pulse Pulse Resp BP Pulse Ox O2 Del Method 02/14/24 12:29 37.4 C 98 H 22 167/78 H 92 Nasal Cannula 02/14/24 11:09 97 H 21 95 Nasal Cannula 02/14/24 08:00 89 02/14/24 08:00 Nasal Cannula 02/14/24 07:45 37.0 C 92 H 21 156/82 H 93 Nasal Cannula 02/14/24 07:12 18 87 L Nasal Cannula 02/14/24 03:18 36.7 C 76 13 144/71 H 93 Nasal Cannula O2 Flow Rate FiO2 02/14/24 12:29 4.0 02/14/24 11:09 1 02/14/24 08:00 02/14/24 08:00 2 02/14/24 07:45 1.0 02/14/24 07:12 1 99 02/14/24 03:18 Laboratory Results CBC, BMP, VBG, urine culture, blood cultures reviewed PG Care Time/CCT Total # of Minutes Spent Total Time Spent with Patient: Total time spent is greater than 50% in coordination of care (as documented) at patient's floor/unit and/or counseling patient: Coding Level of Care Code 94531 SUB INP/OBS CARE 3/50MIN Diagnoses Acute respiratory failure with hypoxia and hypercapnia J96.01; J96.02 Urinary tract infection with hematuria, site unspecified N39.0; R31.9 Hematuria presence: with hematuria Urinary tract infection type: site unspecified Metabolic encephalopathy G93.41 Opiate overdose T40.601A COPD exacerbation J44.1 Elevated troponin R79.89 Aspiration pneumonia J69.0 Dysphagia R13.10 GERD (gastroesophageal reflux disease) K21.9 Hyperlipidemia E78.5 Anxiety F41.9 Primary hypertension I10 Hypertension type: primary hypertension Status post insertion of iliac artery stent Z95.828 (2) Urinary tract infection Hematuria presence: with hematuria Urinary tract infection type: site unspecified Qualified Code(s): N39.0 - Urinary tract infection, site not specified; R31.9 - Hematuria, unspecified (12) HTN (hypertension) Hypertension type: primary hypertension Qualified Code(s): I10 - Essential (primary) hypertension
[2024-02-14] MEDS: fentaNYL 12 MCG/HR TDSY TD SCH (16:40)
[2024-02-14] MEDS: CHECK fentaNYL PATCH PLACEMENT SCH (16:41)
[2024-02-14] MEDS: AMPICILLIN/SULBACTAM SOD 3,000 MG in SODIUM CHLOR 0.9% MINI-B 100 ML IV SCH (16:43)
[2024-02-14] MEDS ORDERED: PHENAZOPYRIDINE HCL 200 MG TAB PO PRN (19:20)
[2024-02-14] MEDS: GABAPENTIN 300 MG CAP PO SCH (20:13)
[2024-02-14] MEDS: busPIRone 7.5 MG TAB PO SCH (20:13)
[2024-02-14] MEDS: SACCHAROMYCES BOULARDII 250 MG CAP PO SCH (20:13)
[2024-02-15] MEDS: ACETAMINOPHEN 325 MG TAB PO PRN (06:11)
[2024-02-15 06:34] LABS: Eosinophils # (auto) 0.01 K/uL (0.00-0.50); Eosinophils % (auto) 0.1 %; Hematocrit (blood only) 32.5 % (37.0-47.0); Hemoglobin 10.7 g/dl (12.0-16.0); Immature Granulocytes # (auto) 0.03 K/uL (0.01-0.20); Immature Granulocytes % (auto) 0.4 %; Lymphocytes # (auto) 0.98 K/uL (1.20-3.40); Lymphocytes % (auto) 12.8 %; Mean Corpuscular Hgb Conc 32.9 g/dL (32.0-36.0); Mean Platelet Volume 9.9 fL (9.4-12.4); Monocytes # (auto) 0.86 K/uL (0.11-0.59); Monocytes % (auto) 11.3 %; Neutrophils # (auto) 5.75 K/uL (1.40-6.50); Neutrophils % (auto) 75.4 %; Platelet Count 312 K/uL (130-400); RDW Standard Deviation 42.7 fL (36.4-46.3); Red Blood Count 3.57 M/uL (4.20-5.40); White Blood Count 7.63 K/ul (4.8-10.8)
[2024-02-15 06:57] LABS: BUN Creatinine Ratio 18.8 (10-20); Calcium 9.1 mg/dl (8.6-10.3); Creatinine Clr Calc Pharmacy 52.3 ml/min; Est GFR (Non-African American) 82.8 ml/min; Magnesium 2.1 mg/dl (1.7-2.4); Potassium 3.9 mmol/L (3.5-5.1)
[2024-02-15 08:56] LABS: A calco-baum cmplx NotReported Not Detected (NotDetected); Bact fragilis Not Reported Not Detected (NotDetected); Blood Culture Id Panel PCR Panel Negative (NotDetected); C auris Not Reported Not Detected (NotDetected); Calbicans Not Reported Not Detected (NotDetected); Candida glabrata Not Reported Not Detected (NotDetected); Candida krusei Not Reported Not Detected (NotDetected); Cneoformans/gatti Not Reported Not Detected (NotDetected); Cparapsilosis Not Reported Not Detected (NotDetected); E cloacae compx Not Reported Not Detected (NotDetected); Efaecalis Not Reported Not Detected (NotDetected); Efaecium Not Reported Not Detected (NotDetected); Enterobacterales Not Reported Not Detected (NotDetected); Escherichia coli Not Reported Not Detected (NotDetected); H influenzae Not Reported Not Detected (NotDetected); K aerogenes Not Reported Not Detected (NotDetected); Koxytoca Not Reported Not Detected (NotDetected); Kpneumoniae grp Not Reported Not Detected (NotDetected); Lmonocyt Not Reported Not Detected (NotDetected); N meningitidis Not Reported Not Detected (NotDetected); P aeruginosa Not Reported Not Detected (NotDetected); Proteus spp Not Reported Not Detected (NotDetected); Salmonella spp Not Reported Not Detected (NotDetected); Smarcescens Not Reported Not Detected (NotDetected); Staph lugdunensis Not Reported Not Detected (NotDetected); Staph spp. Not Reported Not Detected (NotDetected); Staphaureus Not Reported Not Detected (NotDetected); Staphepi Not Reported Not Detected (NotDetected); Stenmaltophilia Not Reported Not Detected (NotDetected); Strep agal(GrpB) Not Reported Not Detected (NotDetected); Strep pneum Not Reported Not Detected (NotDetected); Strep pyog (GrpA) Not Reported Not Detected (NotDetected); Strep spp Not Reported Not Detected (NotDetected)
[2024-02-15] MEDS: CYANOCOBALAMIN (B-12) 500 MCG TABLET PO SCH (09:03)
[2024-02-15] MEDS: predniSONE 10 MG TABLET PO SCH (09:03)
[2024-02-15] MEDS: FERROUS SULFATE 325 MG TAB PO SCH (09:03)
--- NOTE | 2024-02-15 11:37 | Fluoroscopy Report ---
MODIFIED BARIUM SWALLOW CLINICAL HISTORY: assess for aspiration COMPARISON STUDY: Modified barium swallow December 09, 2009. FLUOROSCOPY TIME: 52 seconds. Ka, r: 7.24 mGy. TECHNIQUE: A modified barium swallow was performed in conjunction with Speech Pathology. The patient ingested varying consistencies of barium containing material. Video fluoroscopy was performed. FINDINGS: No tracheal aspiration was identified with thin liquids by spoon or cup. There was no aspir ation with sequential swallows of thin liquids. Penetration was noted. No aspiration was identified w ith nectar thick liquids. Penetration was noted. No aspiration was identified with pudding consistenc ies. Note is made of severe esophageal dysmotility. IMPRESSION: 1. No tracheal aspiration. Intact swallowing mechanism. 2. Severe esophageal dysmotility. 3. Full recommendations by Speech pathology to follow. ACT 112: Negative or not required by law. Electronically signed by: Bismark Martines M.D. 02/15/2024 11:36 AM
[2024-02-15] MEDS: clonazePAM 0.5 MG TAB PO SCH (11:39)
--- NOTE | 2024-02-15 14:57 | Discharge Summary ---
Discharge Summary Date of Service February 15, 2024 Notes For Next Care Provider Needs GI evaluation for repeat EGD, esophageal dysfunction Medication Changes From Visit Decreased oxycodone prn dose to 5mg po bid prn moderate-severe breakthrough pain Added Augmentin 875mg/125mg po bid x 5 more days Added pyridium 200mg po tid prn bladder pain Admission HPI Per Admitting Provider Ana Nichols is a 78 year old resident of [facility] with severe COPD who presents to the ER with hypoxia and altered mental state. She is on 3LPM O2 at baseline reportedly O2 sats were 68%. Per report she was unarousable this morning and therefore sent to the ER. Unable to obtain any history from the patient. Per med rec from [facility] her Fentanyl, clonazepam and gabapentin doses not recently changed however she received x3 doses of oxycodone 10mg in the last 24 hours (previous days only 0-1 doses a day). She has had multiple prior hospitalizations with UTIs or COPD exacerbations causing acute mental status changes. In the ER she was noted to be lethargic with pinpoint pupils therefore Fentanyl patch was removed and Narcan given - responsiveness improved dramatically following this. On discussion with her daughter at bedside. She reports asking for a urine test 3 weeks ago to check for a UTI as her mother was getting goofy. She reports her mother was complaining of abdominal pain on Wednesday and she was disappointed she did not get a scan. She is concerned about her mother's opiate use and reports only recently finding out her mother was on a Fentanyl patch thinking it was a nicotine patch. She reports being concerned about her mothers care at [facility]. Discussed care with provider at [facility] (Dr Everett) - patient was complaining of abdominal pain on Wednesday. Transfer to the ER was declined by the patient. Urine analysis was taken at that time given prior history of UTIs. Reportedly off opiates she has chronic pain and is extremely uncomfortable and she has managed tolerate current level of opiates without issues previously. Gets anxious/shaky off clonazepam. No longer on hospice care but general goal is comfort. Principal Dx & Hospital Course #1 = Principal Diagnosis (1) Acute respiratory failure with hypoxia and hypercapnia: Acute and chronic respiratory failure with hypoxia and hypercapnia-typically is on 3 L nasal cannula O2 at baseline With hypoxia into the 60s on arrival Secondary to CO2 encephalopathy in setting of opiates/clonazepam/gabapentin +/- UTI +/- aspiration +/- COPD exacerbation Improved with Narcan and BiPAP, treatment of UTI, aspiration pneumonitis CT angiogram chest negative for PE but shows atelectasis, tracheobronchial malacia, secretions in the lower airways Repeat ABG improved and patient is now weaned to 1 L nasal cannula and mentating appropriately Resumed fentanyl patch, gabapentin, and clonazepam bid. Reduced dose of oxycodone to 5mg po bid for breakthrough pain Treating aspiration pneumonia with antibiotics (2) Urinary tract infection: Patient has been having urinary tract infection symptoms for 3 weeks as per patient's daughter to include lower abdominal pain and urinary urgency. No evidence of sepsis here and CT abdomen/pelvis negative for acute findings except for moderate amount of stool in the right colon and unchanged bladder wall thickening IV Zosyn was started and urine culture from 02/10 and 02/12 growing E. coli resistant to fluoroquinolones Blood cultures with 1/4 bottles (aerobic) with GPR on day of discharge-could be corynebacterium and not likely true pathogen. Regardless, Augmentin should cover for this Initially on Zosyn and then converted to IV Unasyn which will cover for aspiration pneumonia as well as E. coli UTI---> dc to home on Augmentin 875mg po bid x 5 more days for total of 7 Can use Pyridium as needed for bladder pain (3) Metabolic encephalopathy: Secondary to CO2 retention -now completely resolved (4) Opiate overdose: Suspect contributed towards sedation in setting of infection/COPD exacerbation leading to CO2 retention. She has been on fentanyl patch for at least a year as per my d/w her PCP She has also been on benzodiazepines for many years as per daughter and her gabapentin is also chronic Suspect the overdose was from the oxycodone as needed use-she typically takes it once a day as per previous reports but received it 2 or 3 times on the day prior to admission for pain from UTI-has typically been able to tolerate opioids in the past but likely in setting of severe COPD and UTI encephalopathy--> synergistic effects Resumed fentanyl patch and can use oxycodone reduced dose at 5mg po bid prn breakthrough pain Discussed all care with PCP, Dr. Everett, on phone on day of discharge. (5) COPD exacerbation: Possible diagnosis, wheezing on exam noted by EMS and ER provider-now resolved Solu-Medrol IV was given x 2 doses, and then resumed home prednisone 10mg PO daily Continue bronchodilators, maintenance inhalers Azithromycin 500mg IV daily for 3 days was given (6) Elevated troponin: Troponin mildly elevated and peaked at 463, ECG with sinus tachycardia and T wave inversions anteriorly, echocardiogram with preserved EF, no wall motion abnormalities, small old pericardial effusion, mild RV dilatation with mild dysfunction No chest pain to suggest ACS suspected demand-ischemia in setting of significant hypoxia (7) Aspiration pneumonia: Suspect mostly just aspiration pneumonitis from N/V on admission--> treated with IV Zosyn and then changed to IV Unasyn, now po Augmentin for discharge Seen by speech therapy and had VFSS which showed no aspiration but significant esophageal dysmotility Diet should be pured foods and thin liquids With known Schatzki's ring overdue for EGD-needs outpatient GI f/u (8) Dysphagia: As above (9) GERD (gastroesophageal reflux disease): History of GI bleed Pantoprazole and sucralfate, pepcid (10) Hyperlipidemia: Continue rosuvastatin (11) Anxiety: No acute issues Continue lexapro Resumed scheduled bid clonazepam continue BuSpar (12) HTN (hypertension): BP is controlled to mildly elevated Continue diltiazem (13) Status post insertion of iliac artery stent: Continue Plavix, statin Plan VTE Prophyalxis - Lovenox 40mg SQ daily Disposition -dc back to [facility] today Discussed care at length with daughter on phone on 02/14 Discharge Exam Constitutional WD/WN, vitals as above Respiratory normal respiratory effort Gastrointestinal (Abdomen) normal bowel sounds, soft, nontender, no hepatosplenomegaly Psychiatric A+Ox3, euthymic affect Updated Medication List Medication Instructions Recorded Confirmed Type clopidogrel 75 mg tablet (Plavix) 75 mg PO QAM 08/15/19 02/13/24 History cyanocobalamin (vitamin B-12) 500 500 mcg sublingual QAM 08/15/19 02/13/24 History mcg sublingual tablet escitalopram oxalate 5 mg tablet 5 mg PO QAM 08/15/19 02/13/24 History (Lexapro) ferrous sulfate 325 mg (65 mg 325 mg PO QAM 08/15/19 02/13/24 History iron) tablet pantoprazole 40 mg tablet,delayed 40 mg PO QAM 12/04/19 02/13/24 History release (Protonix) diltiazem HCl 60 mg 60 mg PO QAM 02/17/22 02/13/24 History capsule,extended release 12 hr acetaminophen 325 mg tablet 650 mg PO Q6H PRN pain 1-4/FEVER 10/22/22 02/13/24 History (Tylenol) >100 guaifenesin 600 mg tablet, 600 mg PO Q12H 10/22/22 02/13/24 History extended release 12 hr diclofenac sodium 1 % topical gel See Rx Instructions .Route .COMPLEX 12/10/22 02/13/24 History (Voltaren Arthritis Pain) prednisone 10 mg tablet 10 mg PO QAM 12/10/22 02/13/24 History albuterol sulfate 2.5 mg/3 mL 2.5 mg inhalation UD PRN SOB/wheeze 09/28/23 02/13/24 History (0.083 %) solution for nebulization buspirone 7.5 mg tablet 7.5 mg PO TID 09/28/23 02/13/24 History estradiol 0.01% (0.1 mg/gram) 1 applic vaginal 3XWK 09/28/23 02/13/24 History vaginal cream famotidine 20 mg tablet 20 mg PO AMHS 09/28/23 02/13/24 History fluticasone propionate 50 2 spray intranasal QAM 09/28/23 02/13/24 History mcg/actuation nasal spray,suspension gabapentin 300 mg capsule 300 mg PO TID 09/28/23 02/13/24 History guaifenesin 100 mg/5 mL oral liquid 300 mg PO Q4H PRN Cough 09/28/23 02/13/24 History loratadine 10 mg tablet 10 mg PO QAM 09/28/23 02/13/24 History nystatin 100,000 unit/mL oral 5 ml PO QID 09/28/23 02/13/24 History suspension ondansetron HCl 4 mg tablet 4 mg PO Q6H PRN Nausea And Vomiting 09/28/23 02/13/24 History oxymetazoline 0.05 % nasal spray 2 spray intranasal Q12H PRN 09/28/23 02/13/24 History (Afrin (oxymetazoline)) epistaxis rosuvastatin 20 mg tablet 20 mg PO HS 09/28/23 02/13/24 History Saccharomyces boulardii 250 mg 250 mg PO BID 02/13/24 02/13/24 History capsule (Florastor) albuterol sulfate 90 mcg/actuation 2 inh inhalation Q12H PRN 02/13/24 02/13/24 History breath activated powder inhaler SOB/Wheezing (ProAir RespiClick) arformoterol 15 mcg/2 mL solution 15 mcg inhalation BID 02/13/24 02/13/24 History for nebulization (Brovana) bisacodyl 10 mg rectal suppository 10 mg IN DAILY PRN Constipation 02/13/24 02/13/24 History (Dulcolax (bisacodyl)) budesonide 0.5 mg/2 mL suspension 0.5 mg inhalation BID 02/13/24 02/13/24 History for nebulization eucalyptus-menthol oral mucosal 1 mika mucous membrane Q2H PRN Cough 02/13/24 02/13/24 History lozenge ipratropium 0.5 mg-albuterol 3 mg 3 ml inhalation QID 02/13/24 02/13/24 History (2.5 mg base)/3 mL nebulization soln loperamide 2 mg tablet 2 mg PO Q2H PRN Diarrhea 02/13/24 02/13/24 History magnesium hydroxide 400 mg/5 mL See Rx Instructions .Route 02/13/24 02/13/24 History oral suspension (Milk of Magnesia) .COMPLEX PRN Constipation sodium chloride-aloe vera nasal 1 spray intranasal TID PRN Dry 02/13/24 02/13/24 History spray ([place] Saline Gel nasal spray) Nares sodium phosphates 19 gram-7 118 ml IN DAILY PRN Constipation 02/13/24 02/13/24 History gram/118 mL enema (Fleet Enema) sucralfate 100 mg/mL oral 1 g PO BID 02/13/24 02/13/24 History suspension amoxicillin 875 mg-potassium 1 tab PO BID #10 tabs 02/15/24 Rx clavulanate 125 mg tablet clonazepam 0.5 mg tablet 0.5 mg PO BID #6 tabs 02/15/24 Rx fentanyl 12 mcg/hr transdermal 1 patch transdermal [id number] #5 ea 02/15/24 Rx patch oxycodone 5 mg tablet 5 mg PO BID PRN moderate-severe 02/15/24 Rx breakthrough pain #6 tabs phenazopyridine 200 mg tablet 200 mg PO TID PRN bladder pain #9 02/15/24 Rx (Pyridium) tabs Hospital Stay Data Consultations 02/13/24 11:35 ED Decision to Admit Stat Diagnostic Imagining Performed 02/13/24 09:43 CT Abd and Pelvis [CT abd pelvis IV con only] Stat 02/13/24 10:29 CT angio chest PE protocol Stat CT head/brain wo con Stat 02/15/24 10:00 FL video swallow Routine ECHO Pending Results Patient Have Any Pending Studies at Discharge: Yes (Final blood cultures-10/28 with GPR likely contaminant) Discharge Instructions Given to Patient (Per Discharging Provider) Please finish out 5 more days of Augmentin for your UTI and aspiration pneumonitis. Your oxycodone dose will be reduced to 5mg twice a day as needed for breakthrough pain. You will need to follow up with GI for a repeat EGD to see if you need to have a repeat esophageal dilation performed due to your significant reflux seen during your video swallow study here with Speech Therapy. Total Time Total Time Spent Total Time Spent (In Minutes): 35 min Coding Level of Care Code 82631 INP/OBS DISCH >30 MIN Diagnoses Acute respiratory failure with hypoxia and hypercapnia J96.01; J96.02 Urinary tract infection with hematuria, site unspecified N39.0; R31.9 Urinary tract infection type: site unspecified Hematuria presence: with hematuria Metabolic encephalopathy G93.41 Opiate overdose T40.601A COPD exacerbation J44.1 Elevated troponin R79.89 Aspiration pneumonia J69.0 Dysphagia R13.10 GERD (gastroesophageal reflux disease) K21.9 Hyperlipidemia E78.5 Anxiety F41.9 Primary hypertension I10 Hypertension type: primary hypertension Status post insertion of iliac artery stent Z95.828
== END 2024-02-15 15:45 | DRG 917 ==
LOC: ED 09:17 → SUATTDRO 12:01 → 2E 12:01

== ENCOUNTER 2024-03-08 11:49 | Observation (INO) ==
--- NOTE | 2024-03-08 12:12 | Emergency Department Note ---
Impression & Plan Pyelonephritis, Urinary tract infection, Change in mental status ED Provider Note NAME: MARLENA PHILLIPS AGE: 78 SEX: F : 1945 ARRIVES VIA: Ambulance INFORMANT: Patient, EMS ED PROVIDER(S): Mark Kee DO CHIEF COMPLAINT: Altered mental status HPI: Patient is a 78-year-old female with a past medical history of opiate overdose, GERD, COPD toxic respiratory failure, hypertension, CAD and TIA/CVA who presents to the ER for agitation and left flank pain. Symptoms started within the past 24 hours per [facility]. Patient denies any headache or change in vision. No chest pain or shortness of breath. No dysuria, urgency, or frequency. No other exacerbating or remitting factors. History is limited secondary to dementia ADDITIONAL HISTORY OBTAINED: Per HPI Chronic Medical/Social Conditions Affecting Care: Per HPI PAST MEDICAL HISTORY:See Below PAST SURGICAL HISTORY:See Below FAMILY HISTORY:See Below SOCIAL HISTORY:See Below HOME MEDICATIONS:See Below ALLERGIES:See Below VITALS:See Below PHYSICAL EXAMINATION: GENERAL: Sitting up in bed, alert, well appearing, well nourished, no distress, non-toxic EYE EXAM: normal conjunctiva. OROPHARYNX:mucous membranes are moist NECK: supple, no nuchal rigidity, no adenopathy, non-tender LUNGS: Clear to auscultation. Normal chest wall mechanics HEART: no murmurs, S1 normal and S2 normal ABDOMEN: abdomen soft, non-tender, normo-active bowel sounds, no masses, no rebound or guarding. BACK: Back is symmetrical on inspection and there is no deformity, no midline tenderness, no CVA tenderness. SKIN: no rashes and no bruising UPPER EXTREMITIES: upper extremities are grossly normal. LOWER EXTREMITIES: No pitting edema. NEURO EXAM: Awake alert oriented to person, place, but not year, cranial nerves II-XII intact, normal speech, no weakness of arms, no weakness of legs. MEDICAL DECISION MAKING: Patient is a 78-year-old female who presents ER for above-stated complaint. IV was established blood work was obtained. Labs show no significant leukocytosis or anemia. BMP with slightly elevated CO2 of 40. LFTs bilirubin was unremarkable. Lipase was normal. Pro-Matheus was unremarkable. UA did show nitrates and leuks but 0-[address] abdomen pelvis suggest pyelonephritis. Patient was given IV fluids and IV antibiotics following review of external records/blood cultures which confirm some subtle resistance mainly to Cipro with E. coli. Klebsiella was otherwise pansensitive. Patient was updated bedside discussed case with the hospitalist and admitted for further workup. Consults/Care Managements Discussions: Per MDM Triage Nursing notes reviewed. Limited review of prior medical records performed Vital Signs: reviewed and remarkable for no significant abnormalities Differential diagnosis: Differential diagnoses includes but is not limited to gastritis, peptic ulcer disease, GERD, gallbladder disease, pancreatitis, small bowel obstruction, appendicitis, diverticulitis, hernia, urinary tract infection, torsion, perforation, trauma, infectious. ER treatment provided: See below Diagnostics interpreted by me include EKG and cardiac monitoring as listed below: -Cardiac Monitoring: An order was placed for continuous cardiac monitoring. The monitor shows a rate of 90 with sinus rhythm. -ECG: none -Laboratory studies:Interpreted by me as stated above in MDM and shown below. Imaging studies: Xrays: As interpreted by me:none CTs show: CT abdomen pelvis per my pulmonary interpretation showed no obvious bowel obstruction CT abdomen pelvis per radiology showed bilateral pyelitis/pyelonephritis CT head was negative Procedures:none Critical Care: None Past Med/Surg History Problem List (Updated 03/08/24 @ 18:11 by Mark Kee DO) Pyelonephritis (Acute) Pyelitis Elevated troponin Aspiration pneumonia Acute respiratory failure with hypoxia and hypercapnia Hypoxia (Acute) Discharge planning issues DVT prophylaxis GERD (gastroesophageal reflux disease) Anxiety Change in mental status (Acute) Urinary tract infection (Acute) Neuroforaminal stenosis of lumbar spine Hand abrasion Back pain Lumbar radiculopathy Greater trochanteric pain syndrome Leg pain, right COPD (chronic obstructive pulmonary disease) (Acute) Abdominal pain (Acute) Abnormal involuntary movements Hypophosphatemia Metabolic encephalopathy (Acute) Acute exacerbation of chronic obstructive pulmonary disease (COPD) Acute exacerbation of COPD with asthma Dysphagia Encounter for pre-operative examination Anemia GI bleed COPD (chronic obstructive pulmonary disease) "on home O2" Osteoporosis HTN (hypertension) Peripheral vascular disease Hyperlipidemia GERD (gastroesophageal reflux disease) Anxiety CAD (coronary artery disease) "Minimal non-obstructive CAD by left heart cath 2007" On 12/02/14 16:15 Jaye Nye wrote "Minimal non-obstructive CAD by left heart catherization 2007" Trigger finger History of appendectomy Arthritis of left knee Dysphagia Intractable nausea and vomiting Leg pain, left Weakness Weakness Dysphagia Asymptomatic bilateral carotid artery stenosis "s/p bilateral carotid endarterectomy" History of esophageal stricture Medical History (Updated 03/08/24 @ 18:11 by Mark Kee DO) Acute CVA (cerebrovascular accident) TIA (transient ischemic attack) retirement resident resident of [facility] History of GI bleed History of anemia History of esophageal dilatation Diarrhea Difficulty swallowing PVD (peripheral vascular disease) Osteoporosis Arthritis Anxiety SOB (shortness of breath) on exertion Chronic obstructive pulmonary disease OXYGEN 3-4 L/MIN CONTINUOUSLY CAD (coronary artery disease) F/U DR Angélica LEONARDO Hyperlipidemia Hypertension Surgical History (Updated 03/08/24 @ 15:05 by Gallo Irvin MD) Hx of esophagogastroduodenoscopy "EGD 12/04/11 Dr. Woods- large hiatal hernia. stomach and small intestine were normal. esophagus dilated, small tear in the UES" History of left heart catheterization H/O colonoscopy "Colonoscopy 09/06/13 Dr. Woods- sigmoid diverticulosis, internal hemorrhoids, no polyps" On 12/02/14 16:04 Jaye Parris wrote "2012-adenomatous polyp" Status post insertion of iliac artery stent "Right common iliac artery stent and right external iliac artery angioplasty [place] 06/22/14, [place] [facility] [place] History of hemorrhoidectomy History of knee surgery S/p bilateral carotid endarterectomy H/O vascular surgery RIGHT ILIAC ARTERY STENT PLACEMENT H/O knee surgery History of appendectomy History of esophagogastroduodenoscopy (EGD) History of colonoscopy History of cataract surgery R/L H/O hemorrhoidectomy H/O carotid endarterectomy R/L History of cardiac cath NO STENTS Family History Other No family history of adverse response to anesthesia Social History Smoking Status: Unknown if ever smoked Age Started Using Tobacco: 19; packs per day: 2; Cigarettes Per Day: 5-10 CIG a day ADVISED; Do You Dip or Chew Tobacco: Yes; Hx Alcohol Use: No Hx Substance Use: No Preferred Language: Mongolian Communication Ability: Effective Synthetic Filament Extruder Required: No Beliefs That Will Affect Care: None marital status: / Current Living Situation: Shelter Current Living Situation Comment: [facility] How many Children do You have: 1 Feels Safe at Home: Yes Assistive Devices: Oxygen - Continuous, Walker and Wheelchair Allergies Allergies Allergy/AdvReac Type Severity Reaction Status Date / Time metoclopramide Allergy Severe "lungs Verified 03/08/24 16:31 collapsed" cortisone Allergy Intermediate swelling Verified 03/08/24 16:31 salicylates Allergy Intermediate caused Verified 03/08/24 16:31 bleeding, can take EC aspirin Corticosteroids AdvReac Intermediate swelling Verified 03/08/24 16:31 (Glucocorticoids) Home Meds Home Medications Medication Instructions Recorded Confirmed Saccharomyces boulardii 250 mg 250 mg PO BID 03/08/24 03/08/24 capsule (Florastor) acetaminophen 325 mg tablet 650 mg PO Q6 PRN Fever Or Pain 03/08/24 03/08/24 (Tylenol) albuterol sulfate 2.5 mg/3 mL 2.5 mg continuous nebulization 03/08/24 03/08/24 (0.083 %) solution for nebulization .Q2HR PRN Shortness Of Breath Or Wheezing albuterol sulfate 90 mcg/actuation 2 puff inhalation Q12 PRN 03/08/24 03/08/24 aerosol inhaler Shortness Of Breath arformoterol 15 mcg/2 mL solution 2 ml inhalation BID 03/08/24 03/08/24 for nebulization (Brovana) ascorbic acid (vitamin C) 1,000 mg 1 g PO QAM 03/08/24 03/08/24 tablet (Vitamin C) budesonide 0.5 mg/2 mL suspension 0.5 mg inhalation BID 03/08/24 03/08/24 for nebulization buspirone 7.5 mg tablet 7.5 mg PO BID 03/08/24 03/08/24 clonazepam 0.5 mg tablet 0.5 mg PO AMHS 03/08/24 03/08/24 clopidogrel 75 mg tablet (Plavix) 75 mg PO DAILY 03/08/24 03/08/24 cyanocobalamin (vitamin B-12) 500 500 mcg PO DAILY 03/08/24 03/08/24 mcg tablet (Vitamin B-12) diclofenac sodium 1 % topical gel 2 g topical QID 03/08/24 03/08/24 diltiazem HCl 60 mg tablet 60 mg PO QAM 03/08/24 03/08/24 escitalopram oxalate 5 mg tablet 5 mg PO QAM 03/08/24 03/08/24 estradiol 0.01% (0.1 mg/gram) 1 appful vaginal .MON, WED, FRI @HS 03/08/24 03/08/24 vaginal cream eucalyptus-menthol oral mucosal 1 mika mucous membrane .Q2HR PRN 03/08/24 03/08/24 lozenge Cough famotidine 20 mg tablet 20 mg PO BID 03/08/24 03/08/24 fentanyl 12 mcg/hr transdermal 12 mcg topical [id number] 03/08/24 03/08/24 patch fluticasone propionate 50 2 spray intranasal QAM 03/08/24 03/08/24 mcg/actuation nasal spray,suspension gabapentin 300 mg capsule 300 mg PO TID 03/08/24 03/08/24 guaifenesin 100 mg/5 mL oral liquid 300 mg PO Q4H PRN Cough 03/08/24 03/08/24 guaifenesin 600 mg tablet, 600 mg PO Q12 03/08/24 03/08/24 extended release 12 hr (Mucinex) ipratropium 0.5 mg-albuterol 3 mg 3 ml inhalation QID 03/08/24 03/08/24 (2.5 mg base)/3 mL nebulization soln loperamide 2 mg tablet (Imodium 2 mg PO .Q2HR PRN Diarrhea 03/08/24 03/08/24 A-D) loratadine 10 mg tablet 10 mg PO DAILY 03/08/24 03/08/24 methenamine hippurate 1 gram tablet 1 g PO BID 03/08/24 03/08/24 nystatin 100,000 unit/mL oral 5 ml PO QID 03/08/24 03/08/24 suspension ondansetron HCl 4 mg tablet 4 mg PO Q6H PRN Nausea 03/08/24 03/08/24 oxycodone 5 mg tablet 5 mg PO BID PRN .pain 5-10 03/08/24 03/08/24 oxymetazoline 0.05 % nasal mist 2 spray intranasal Q12H PRN 03/08/24 03/08/24 (Afrin (oxymetazoline)) .epistaxis pantoprazole 40 mg tablet,delayed 40 mg PO AMHS 03/08/24 03/08/24 release phenazopyridine 200 mg tablet 200 mg PO Q8 PRN .bladder spasm 03/08/24 03/08/24 (Pyridium) prednisone 10 mg tablet 10 mg PO QAM 03/08/24 03/08/24 rosuvastatin 20 mg tablet 20 mg PO HS 03/08/24 03/08/24 sodium chloride-aloe vera nasal 1 applic topical TID PRN .. 03/08/24 03/08/24 gel (Warren Saline nasal gel) sucralfate 100 mg/mL oral 10 ml PO QID 03/08/24 03/08/24 suspension Results & Data (ED) Vital Signs Vital Signs - 24 hr 03/08/24 12:02 03/08/24 12:02 03/08/24 12:24 Temperature 36.9 C Temperature Source Oral Pulse Rate 98 H 97 H Pulse Rate [Apical] 98 H Pulse Rate from SpO2 Sensor Pulse Rhythm [Apical] Pulse Strength [Apical] Respiratory Rate 22 22 Respiratory Effort / Characteristics Spontaneous Labored Short of Breath Spontaneous Labored Short of Breath Respiratory Depth Normal Normal Respiratory Pattern Regular Blood Pressure 112/75 Blood Pressure [Left Arm] 112/75 Blood Pressure Mean 87 Blood Pressure Mean [Left Arm] 87 Blood Pressure Position Lying Blood Pressure Position [Left Arm] Lying Pulse Oximetry 96 96 Oxygen Delivery Method Nasal Cannula Nasal Cannula Oxygen Flow Rate 3 3 Sepsis Recent Fever Within 48 Hours No Sepsis New/Unexplained Change in Mental Status N/A Sepsis Action Taken by Nursing No Action Required 03/08/24 12:57 03/08/24 14:01 03/08/24 15:39 Temperature Temperature Source Pulse Rate Pulse Rate [Apical] 92 H 100 H Pulse Rate from SpO2 Sensor Pulse Rhythm [Apical] Regular Pulse Strength [Apical] Normal Respiratory Rate 22 24 Respiratory Effort / Characteristics Spontaneous Labored Short of Breath Non-Labored Spontaneous Respiratory Depth Normal Normal Respiratory Pattern Regular Regular Blood Pressure Blood Pressure [Left Arm] 133/50 L 133/82 Blood Pressure Mean Blood Pressure Mean [Left Arm] 77 99 Blood Pressure Position Blood Pressure Position [Left Arm] Lying Semi-fowlers Pulse Oximetry 98 96 98 Oxygen Delivery Method Room Air Nasal Cannula Nasal Cannula Oxygen Flow Rate 3 4 Sepsis Recent Fever Within 48 Hours Sepsis New/Unexplained Change in Mental Status Sepsis Action Taken by Nursing 03/08/24 16:00 03/08/24 16:30 03/08/24 16:41 Temperature Temperature Source Pulse Rate 95 H 95 H 93 H Pulse Rate [Apical] Pulse Rate from SpO2 Sensor 95 H Pulse Rhythm [Apical] Pulse Strength [Apical] Respiratory Rate 17 17 Respiratory Effort / Characteristics Respiratory Depth Respiratory Pattern Blood Pressure 125/64 145/91 H Blood Pressure [Left Arm] Blood Pressure Mean 84 109 Blood Pressure Mean [Left Arm] Blood Pressure Position Blood Pressure Position [Left Arm] Pulse Oximetry 98 95 Oxygen Delivery Method Nasal Cannula Nasal Cannula Oxygen Flow Rate 4 4 Sepsis Recent Fever Within 48 Hours Sepsis New/Unexplained Change in Mental Status Sepsis Action Taken by Nursing Laboratory Data 03/08/24 12:20 03/08/24 12:20 Lab Results 03/08/24 03/08/24 03/08/24 Range/Units 12:20 12:30 12:55 WBC 9.12 (4.8-10.8) K/ul RBC 4.12 L (4.20-5.40) M/uL Hgb 12.1 (12.0-16.0) g/dl Hct 39.1 (37.0-47.0) % MCV 94.9 (80.0-100.0) fL MCH 29.4 (25.0-34.0) pg MCHC 30.9 L (32.0-36.0) g/dL RDW Std Deviation 43.2 (36.4-46.3) fL RDW Coeff of Renetta 12.5 (11.5-14.5) % Plt Count 331 (130-400) K/uL MPV 9.5 (9.4-12.4) fL Immature Gran % (Auto) 0.7 % Neut % (Auto) 84.3 % Lymph % (Auto) 7.7 % Todd % (Auto) 6.5 % Eos % (Auto) 0.1 % Baso % (Auto) 0.7 % Neut # (Auto) 7.70 H (1.40-6.50) K/uL Lymph # (Auto) 0.70 L (1.20-3.40) K/uL Todd # (Auto) 0.59 (0.11-0.59) K/uL Eos # (Auto) 0.01 (0.00-0.50) K/uL Baso # (Auto) 0.06 (0.00-0.20) K/uL Immature Gran # (Auto) 0.06 (0.01-0.20) K/uL ESR 10 (0-30) mm/hr Sodium 139 (136-145) mmol/L Potassium 4.2 (3.5-5.1) mmol/L Chloride 93 L (98-107) mmol/L Carbon Dioxide 40 H (21-32) mmol/L Anion Gap 6 (3-11) BUN 11 (6-23) mg/dl Creatinine 1.05 (0.6-1.2) mg/dl Est Cr Clr Drug Dosing 35.8 ml/min Est GFR ( Amer) 58.5 ml/min Est GFR (Non-Af Amer) 50.5 ml/min BUN/Creatinine Ratio 10.5 (10-20) Glucose 121 H (70-99(Fasting)) mg/dl Calcium 9.8 (8.6-10.3) mg/dl Total Bilirubin 0.4 (0.2-1.0) mg/dl AST 24 (13-39) U/L ALT 14 (7-52) U/L Alkaline Phosphatase 82 (34-104) U/L C-Reactive Protein < 0.50 (0-0.5) mg/dl Total Protein 6.5 (6.0-8.3) gm/dl Albumin 4.1 (3.4-5.0) gm/dl Globulin 2.4 L (2.5-4.0) gm/dl Albumin/Globulin Ratio 1.7 (0.9-2) Lipase 11 (11-82) U/L Procalcitonin 0.06 (0-0.5) ng/ml Urine Color Dark Yellow Urine Appearance Clear (Clear) Urine pH 7.5 (4.5-7.5) Ur Specific [place] 1.009 (1.000-1.030) Urine Protein Negative (Negative) Urine Glucose (UA) Negative (Negative) Urine Ketones Negative (Negative) Urine Blood Trace H (Negative) Urine Nitrite Positive A (Negative) Urine Bilirubin Negative (Negative) Urine Urobilinogen Negative (Negative) Ur Leukocyte Esterase 1+ H (Negative) Urine WBC (Auto) 0-5 (0-5) /hpf Urine RBC (Auto) 3-5 H (0-2) /hpf U Hyaline Cast (Auto) 0-2 (0-2) /lpf U Epithel Cells (Auto) 0-2 (0-2) /hpf Urine Bacteria (Auto) None Seen (None Seen) SARS-CoV-2, RNA, NAAT (NEGATIVE) 03/08/24 Range/Units Unknown WBC (4.8-10.8) K/ul RBC (4.20-5.40) M/uL Hgb (12.0-16.0) g/dl Hct (37.0-47.0) % MCV (80.0-100.0) fL MCH (25.0-34.0) pg MCHC (32.0-36.0) g/dL RDW Std Deviation (36.4-46.3) fL RDW Coeff of Renetta (11.5-14.5) % Plt Count (130-400) K/uL MPV (9.4-12.4) fL Immature Gran % (Auto) % Neut % (Auto) % Lymph % (Auto) % Todd % (Auto) % Eos % (Auto) % Baso % (Auto) % Neut # (Auto) (1.40-6.50) K/uL Lymph # (Auto) (1.20-3.40) K/uL Todd # (Auto) (0.11-0.59) K/uL Eos # (Auto) (0.00-0.50) K/uL Baso # (Auto) (0.00-0.20) K/uL Immature Gran # (Auto) (0.01-0.20) K/uL ESR (0-30) mm/hr Sodium (136-145) mmol/L Potassium (3.5-5.1) mmol/L Chloride (98-107) mmol/L Carbon Dioxide (21-32) mmol/L Anion Gap (3-11) BUN (6-23) mg/dl Creatinine (0.6-1.2) mg/dl Est Cr Clr Drug Dosing ml/min Est GFR ( Amer) ml/min Est GFR (Non-Af Amer) ml/min BUN/Creatinine Ratio (10-20) Glucose (70-99(Fasting)) mg/dl Calcium (8.6-10.3) mg/dl Total Bilirubin (0.2-1.0) mg/dl AST (13-39) U/L ALT (7-52) U/L Alkaline Phosphatase (34-104) U/L C-Reactive Protein (0-0.5) mg/dl Total Protein (6.0-8.3) gm/dl Albumin (3.4-5.0) gm/dl Globulin (2.5-4.0) gm/dl Albumin/Globulin Ratio (0.9-2) Lipase (11-82) U/L Procalcitonin (0-0.5) ng/ml Urine Color Urine Appearance (Clear) Urine pH (4.5-7.5) Ur Specific [place] (1.000-1.030) Urine Protein (Negative) Urine Glucose (UA) (Negative) Urine Ketones (Negative) Urine Blood (Negative) Urine Nitrite (Negative) Urine Bilirubin (Negative) Urine Urobilinogen (Negative) Ur Leukocyte Esterase (Negative) Urine WBC (Auto) (0-5) /hpf Urine RBC (Auto) (0-2) /hpf U Hyaline Cast (Auto) (0-2) /lpf U Epithel Cells (Auto) (0-2) /hpf Urine Bacteria (Auto) (None Seen) SARS-CoV-2, RNA, NAAT NEGATIVE (NEGATIVE) Administered Medications Discontinued Medications Albuterol (Albut/Ipratrop 3mg/0.5mg Neb 3 Ml Vial) 3 ml NEB NOW STA; Protocol Stop: 03/08/24 16:52 Last Admin: 03/08/24 16:55 Dose: 3 ml Documented By: ИВАН Albuterol (Albut/Ipratrop 3mg/0.5mg Neb 3 Ml Vial) Confirm Administered Dose 3 ml .ROUTE .STK-MED ONE Stop: 03/08/24 16:55 Last Admin: 03/08/24 16:56 Dose: Not Given Documented By: ИВАН Sodium Chloride (Nss) 1,000 mls @ 999 mls/hr IV .Q1H1M ONE Stop: 03/08/24 13:12 Last Infusion: 03/08/24 14:14 Dose: Infused Documented By: Admin: 03/08/24 12:16 Dose: 999 mls/hr Documented By: APRIL Ceftriaxone Sodium (Rocephin) 2,000 mg in 50 mls @ 100 mls/hr IV NOW STA Stop: 03/08/24 15:01 Last Infusion: 03/08/24 15:43 Dose: Infused Documented By: Admin: 03/08/24 15:04 Dose: 100 mls/hr Documented By: APRIL Ioversol (Optiray 320 100ml) 94 ml IV ONCE ONE Stop: 03/08/24 13:25 Last Admin: 03/08/24 13:18 Dose: 94 ml Documented By: TERRA Imaging Data Radiologist's Impression: Head CT 03/08/24 12:08 CT head/brain wo con CLINICAL HISTORY: 78 years-old Female with ams. Acutely altered mental status TECHNIQUE: Multiple axial CT images of the head were obtained without contrast. A dose lowering technique was utilized adhering to the principles of ALARA. COMPARISON: 02/13/2024 FINDINGS: Motion degraded exam. Involutional changes with chronic microvascular ischemic disease redemonstrated. No acute intracranial hemorrhage, midline shift, intracranial mass, hydrocephalus, territorial ischemia or abnormal extra-axial collection. The calvarium is intact. Bilateral lens repair. The paranasal sinuses, mastoid air cells, and middle ear cavities are clear. IMPRESSION: Motion degraded exam. No acute intracranial abnormality identified. ACT 112: Negative or not required by law. The above report was generated using voice recognition software. It may contain grammatical, syntax or spelling errors. Electronically signed by: Lonnie Oshea M.D. 03/08/2024 1:29 PM Abdomen/Pelvis CT 03/08/24 12:[address] WITH IV CONTRAST CT DOSE: 1829.62 mGy.cm HISTORY: Acute mid abdominal pain abd pain / l mid abd TECHNIQUE: Multiaxial CT images of the abdomen and pelvis were performed following the IV administration of 94 cc of Optiray, A dose lowering technique was utilized adhering to the principles of ALARA. COMPARISON STUDY: 02/13/2024 FINDINGS: Motion degraded exam. Pulmonary emphysema. No pneumatosis, free air or portal venous gas is present. Liver, spleen, adrenal glands and pancreas are unremarkable. There is a 2.6 cm water attenuation right renal lesion. This is consistent with a cyst. Moderate bilateral renal cortical thinning is present. Mild urothelial thickening of the renal collecting systems and ureters. Hysterectomy. Bladder wall thickening is unchanged. The caliber and wall thickness of small and large bowel are normal. Small hiatal hernia. There is a moderate amount of stool within the right colon. The appendix is not visualized. No inflammation is identified. There is extensive aortoiliac atherosclerotic plaque. No ascites is present. There are no fluid collections. Chronic T12 and L1 compression fractures are unchanged. No acute fractures are identified within visualized skeletal structures. This study is mildly compromised by motion artifact. IMPRESSION: 1. Motion degraded exam. No bowel obstruction or bowel wall thickening. 2. Suggested cystitis with findings suggestive of associated bilateral pyelitis/ureteritis. Correlate with urinalysis. 3. Incidental findings as above. ACT 112: Negative or not required by law. The above report was generated using voice recognition software. It may contain grammatical, syntax or spelling errors. Electronically signed by: Lonnie Oshea M.D. 03/08/2024 1:52 PM Discharge Plan Visit Data Chief Complaint: Flank Pain Stated Complaint: CONFUSION ED Provider: Mark Kee Discharge Problem: Pyelonephritis, Urinary tract infection, Change in mental status Forms Stand Alone Forms: [facility] Prescriptions Prescriptions: No Action ascorbic acid (vitamin C) [Vitamin C] 1,000 mg Tablet 1 g PO QAM albuterol sulfate 2.5 mg /3 mL (0.083 %) solution for nebulization 2.5 mg continuous nebulization .Q2HR PRN (Reason: Shortness Of Breath Or Wheezing) clonazepam 0.5 mg tablet 0.5 mg PO AMHS loperamide [Imodium A-D] 2 mg Tablet 2 mg PO .Q2HR PRN (Reason: Diarrhea) Rx Instructions: administer after each loose stool until symptoms controlled; do not exceed 8 mg per 24 hrs clopidogrel [Plavix] 75 mg Tablet 75 mg PO DAILY guaifenesin 100 mg/5 mL Liquid 300 mg PO Q4H PRN (Reason: Cough) famotidine 20 mg Tablet 20 mg PO BID cyanocobalamin (vitamin B-12) [Vitamin B-12] 500 mcg Tablet 500 mcg PO DAILY gabapentin 300 mg capsule 300 mg PO TID buspirone 7.5 mg Tablet 7.5 mg PO BID budesonide 0.5 mg/2 mL suspension for nebulization 0.5 mg inhalation BID estradiol 0.01 % (0.1 mg/gram) cream 1 appful VAGINAL .MON, WED, FRI @HS albuterol sulfate 90 mcg/actuation HFA aerosol inhaler 2 puff INHALATION Q12 PRN (Reason: Shortness Of Breath) diltiazem HCl 60 mg tablet 60 mg PO QAM fluticasone propionate 50 mcg/actuation spray,suspension 2 spray INTRANASAL QAM Afrin (oxymetazoline) 0.05 % Mist 2 spray INTRANASAL Q12H PRN (Reason: .epistaxis) Saccharomyces boulardii [Florastor] 250 mg Capsule 250 mg PO BID Rx Instructions: am,hs escitalopram oxalate 5 mg Tablet 5 mg PO QAM Warren Saline Gel 1 applic TOPICAL TID PRN (Reason: ..) fentanyl 12 mcg/hr patch 72 hour 12 mcg topical [id number] arformoterol [Brovana] 15 mcg/2 mL Solution For Nebulization 2 ml INHALATION BID guaifenesin [Mucinex] 600 mg Tablet Extended Release 12hr 600 mg PO Q12 nystatin 100,000 unit/mL suspension 5 ml PO QID Rx Instructions: swish & swallow acetaminophen [Tylenol] 325 mg Tablet 650 mg PO Q6 PRN (Reason: Fever Or Pain) prednisone 10 mg Tablet 10 mg PO QAM Rx Instructions: see taper instructions ipratropium-albuterol 0.5 mg-3 mg(2.5 mg base)/3 mL Solution For Nebulization 3 ml INHALATION QID sucralfate 100 mg/mL suspension 10 ml PO QID phenazopyridine [Pyridium] 200 mg Tablet 200 mg PO Q8 PRN (Reason: .bladder spasm) ondansetron HCl 4 mg Tablet 4 mg PO Q6H PRN (Reason: Nausea) methenamine hippurate 1 gram tablet 1 g PO BID pantoprazole 40 mg Tablet,Delayed Release (Dr/Ec) 40 mg PO AMHS loratadine 10 mg Tablet 10 mg PO DAILY oxycodone 5 mg Tablet 5 mg PO BID PRN (Reason: .pain 5-10) Menthol Cough Drops Lozenge 1 mika MUCOUS MEMBRANE .Q2HR PRN (Reason: Cough) rosuvastatin 20 mg Tablet 20 mg PO HS diclofenac sodium [Voltaren] 1 % Gel 2 g TOPICAL QID Rx Instructions: Apply to bi-lateral shoulder and right thigh Referrals Referrals: [facility] [Primary Care Provider] - Discharge Problem: Urinary tract infection Qualifiers: Urinary tract infection type: site unspecified Hematuria presence: without hematuria Qualified Code(s): N39.0 - Urinary tract infection, site not specified Change in mental status Qualifiers: Altered mental status type: unspecified Qualified Code(s): R41.82 - Altered mental status, unspecified
[2024-03-08] MEDS: SODIUM CHLORIDE 0.9% 1,000 ML IV ONE (12:16)
[2024-03-08 12:32] LABS: Basophils # (auto) 0.06 K/uL (0.00-0.20); Basophils % (auto) 0.7 %; Eosinophils # (auto) 0.01 K/uL (0.00-0.50); Eosinophils % (auto) 0.1 %; Hematocrit (blood only) 39.1 % (37.0-47.0); Hemoglobin 12.1 g/dl (12.0-16.0); Immature Granulocytes # (auto) 0.06 K/uL (0.01-0.20); Immature Granulocytes % (auto) 0.7 %; Lymphocytes % (auto) 7.7 %; Mean Corpuscular Hemoglobin 29.4 pg (25.0-34.0); Mean Corpuscular Hgb Conc 30.9 g/dL (32.0-36.0); Mean Corpuscular Volume 94.9 fL (80.0-100.0); Mean Platelet Volume 9.5 fL (9.4-12.4); Monocytes # (auto) 0.59 K/uL (0.11-0.59); Monocytes % (auto) 6.5 %; Neutrophils % (auto) 84.3 %; Platelet Count 331 K/uL (130-400); RDW Coefficient of Variation 12.5 % (11.5-14.5); RDW Standard Deviation 43.2 fL (36.4-46.3); Red Blood Count 4.12 M/uL (4.20-5.40); White Blood Count 9.12 K/ul (4.8-10.8)
[2024-03-08 12:51] LABS: Alanine Aminotransferase 14 U/L (7-52); Albumin Globulin Ratio 1.7 (0.9-2); Albumin Level 4.1 gm/dl (3.4-5.0); Alkaline Phosphatase 82 U/L (34-104); Anion Gap 6 (3-11); Aspartate Aminotransferase 24 U/L (13-39); BUN Creatinine Ratio 10.5 (10-20); Bilirubin,Total 0.4 mg/dl (0.2-1.0); Blood Urea Nitrogen 11 mg/dl (6-23); Calcium 9.8 mg/dl (8.6-10.3); Carbon Dioxide 40 mmol/L (21-32); Chloride 93 mmol/L (98-107); Creatinine Clr Calc Pharmacy 35.8 ml/min; Est GFR (African American) 58.5 ml/min; Est GFR (Non-African American) 50.5 ml/min; Globulin 2.4 gm/dl (2.5-4.0); Glucose 121 mg/dl (70-99(Fasting)); Lipase 11 U/L (11-82); Potassium 4.2 mmol/L (3.5-5.1); Sodium 139 mmol/L (136-145); Total Protein 6.5 gm/dl (6.0-8.3)
[2024-03-08] MEDS: OPTIRAY 320 100ml IV ONE (13:18)
--- NOTE | 2024-03-08 13:30 | CT Scan Report ---
CT head/brain wo con CLINICAL HISTORY: 78 years-old Female with ams. Acutely altered mental status TECHNIQUE: Multiple axial CT images of the head were obtained without contrast. A dose lowering tech nique was utilized adhering to the principles of ALARA. COMPARISON: 02/13/2024 FINDINGS: Motion degraded exam. Involutional changes with chronic microvascular ischemic disease redemonstrated . No acute intracranial hemorrhage, midline shift, intracranial mass, hydrocephalus, territorial isch emia or abnormal extra-axial collection. The calvarium is intact. Bilateral lens repair. The paranasal sinuses, mastoid air cells, and middle ear cavities are clear. IMPRESSION: Motion degraded exam. No acute intracranial abnormality identified. ACT 112: Negative or not required by law. The above report was generated using voice recognition software. It may contain grammatical, syntax o r spelling errors. Electronically signed by: Lonnie Oshea M.D. 03/08/2024 1:29 PM
[2024-03-08 13:35] LABS: Appearance Urine Clear (Clear); Bacteria Urine Automated None Seen (None Seen); Bilirubin Urine Negative (Negative); Blood Urine Trace (Negative); Cast Urine Automated 0-2 /lpf (0-2); Color Urine Dark Yellow; Epithelial Cell Urine Auto 0-2 /hpf (0-2); Glucose Urine UA Negative (Negative); Ketones Urine Negative (Negative); Leukocyte Esterase Urine 1+ (Negative); Nitrite Urine Positive (Negative); Protein Urine Negative (Negative); Specific Gravity Urine 1.009 (1.000-1.030); Urobilinogen Urine Negative (Negative); WBC Urine Automated 0-5 /hpf (0-5); pH Urine 7.5 (4.5-7.5)
--- NOTE | 2024-03-08 13:54 | CT Scan Report ---
ABDOMEN AND PELVIS CT WITH IV CONTRAST CT DOSE: 1829.62 mGy.cm HISTORY: Acute mid abdominal pain abd pain / l mid abd TECHNIQUE: Multiaxial CT images of the abdomen and pelvis were performed following the IV administrat ion of 94 cc of Optiray, A dose lowering technique was utilized adhering to the principles of ALARA. COMPARISON STUDY: 02/13/2024 FINDINGS: Motion degraded exam. Pulmonary emphysema. No pneumatosis, free air or portal venous gas is present. Liver, spleen, adrenal glands and pancreas are unremarkable. There is a 2.6 cm water attenu ation right renal lesion. This is consistent with a cyst. Moderate bilateral renal cortical thinning is present. Mild urothelial thickening of the renal collecting systems and ureters. Hysterectomy. Dave dder wall thickening is unchanged. The caliber and wall thickness of small and large bowel are normal. Small hiatal hernia. There is a m oderate amount of stool within the right colon. The appendix is not visualized. No inflammation is id entified. There is extensive aortoiliac atherosclerotic plaque. No ascites is present. There are no f luid collections. Chronic T12 and L1 compression fractures are unchanged. No acute fractures are iden tified within visualized skeletal structures. This study is mildly compromised by motion artifact. IMPRESSION: 1. Motion degraded exam. No bowel obstruction or bowel wall thickening. 2. Suggested cystitis with findings suggestive of associated bilateral pyelitis/ureteritis. Correlate with urinalysis. 3. Incidental findings as above. ACT 112: Negative or not required by law. The above report was generated using voice recognition software. It may contain grammatical, syntax o r spelling errors. Electronically signed by: Lonnie Oshea M.D. 03/08/2024 1:52 PM
--- NOTE | 2024-03-08 14:55 | History & Physical Report ---
Date of Service March 08, 2024 Assessment & Plan (1) Pyelitis: Plan: Suggestive on imaging with complaint of left flank pain although no CVA tenderness on exam Straight cath UA pending collection Follow up blood culture Ceftriaxone 2g IV daily empirically, consider longer duration of treatment given recently treated E. coli UTI in January (2) COPD (chronic obstructive pulmonary disease): Plan: Low suspicion of acute exacerbation despite mild expiratory wheezing given she has severe COPD at baseline Continue her usual budesonide/formoterol nebs and prednisone daily Wean O2 to aim 88-92% BiPAP HS (3) Dysphagia: Plan: Severe esophageal dysmotility on recent barium swallow Deferred EGD per long term notes given her poor baseline respiratory status which appears sensible Strict aspiration precautions Plan Continue her chronic pain and anxiety regimen - noted oxycodone decreased to 5mg PRN VTE Prophylaxis - Lovenox 40mg SQ daily Diet - regular, aspiration precautions Deposition - observation on med/surg Admission and Anticipated Discharge Date Admission Date: March 08, 2024 History of Present Illness Chief Complaint: Generalized confusion Primary Care Provider: [facility] Ana Nichols is a 78-year-old female who presents to the ER with agitation, labored breathing and left flank pain per triage note. Unable to get any history from the patient as she doesn't know why she is here. She currently denies any chest pain, shortness of breath, nasal congestion, sinus pain, cough, abdominal pain, diarrhea, dysuria, fever or chills. She does note left flank pain but cannot give me any history regarding this. Unable to tell me where she is or the year. Discussed with Chyna ONEAL @ [facility] - increased confusion, walking out in hallway with clothes off, taking off oxygen, transferring without oxygen, grossly incontinent, playing with feces. Ongoing for last few days but much today. She was recently admitted for acute respiratory failure with hypoxia and hypercapnia due to UTI in setting of opiate use. Urine culture grew E. coli res istant to quinolones. She was discharged on Augmentin for total antibiotic duration of 7 days. Daughter did not worm picker phone when called. Allergies Allergy/AdvReac Type Severity Reaction Status Date / Time metoclopramide Allergy Severe "lungs Verified 03/08/24 16:31 collapsed" cortisone Allergy Intermediate swelling Verified 03/08/24 16:31 salicylates Allergy Intermediate caused Verified 03/08/24 16:31 bleeding, can take EC aspirin Corticosteroids AdvReac Intermediate swelling Verified 03/08/24 16:31 (Glucocorticoids) Home Medications Medication Instructions Recorded Confirmed Type Saccharomyces boulardii 250 mg 250 mg PO BID 03/08/24 03/08/24 History capsule (Florastor) acetaminophen 325 mg tablet 650 mg PO Q6 PRN Fever Or Pain 03/08/24 03/08/24 History (Tylenol) albuterol sulfate 2.5 mg/3 mL 2.5 mg continuous nebulization 03/08/24 03/08/24 History (0.083 %) solution for nebulization .Q2HR PRN Shortness Of Breath Or Wheezing albuterol sulfate 90 mcg/actuation 2 puff inhalation Q12 PRN 03/08/24 03/08/24 History aerosol inhaler Shortness Of Breath arformoterol 15 mcg/2 mL solution 2 ml inhalation BID 03/08/24 03/08/24 History for nebulization (Brovana) ascorbic acid (vitamin C) 1,000 mg 1 g PO QAM 03/08/24 03/08/24 History tablet (Vitamin C) budesonide 0.5 mg/2 mL suspension 0.5 mg inhalation BID 03/08/24 03/08/24 History for nebulization buspirone 7.5 mg tablet 7.5 mg PO BID 03/08/24 03/08/24 History clonazepam 0.5 mg tablet 0.5 mg PO AMHS 03/08/24 03/08/24 History clopidogrel 75 mg tablet (Plavix) 75 mg PO DAILY 03/08/24 03/08/24 History cyanocobalamin (vitamin B-12) 500 500 mcg PO DAILY 03/08/24 03/08/24 History mcg tablet (Vitamin B-12) diclofenac sodium 1 % topical gel 2 g topical QID 03/08/24 03/08/24 History diltiazem HCl 60 mg tablet 60 mg PO QAM 03/08/24 03/08/24 History escitalopram oxalate 5 mg tablet 5 mg PO QAM 03/08/24 03/08/24 History estradiol 0.01% (0.1 mg/gram) 1 appful vaginal .MON, WED, FRI @HS 03/08/24 03/08/24 History vaginal cream eucalyptus-menthol oral mucosal 1 mika mucous membrane .Q2HR PRN 03/08/24 03/08/24 History lozenge Cough famotidine 20 mg tablet 20 mg PO BID 03/08/24 03/08/24 History fentanyl 12 mcg/hr transdermal 12 mcg topical [id number] 03/08/24 03/08/24 History patch fluticasone propionate 50 2 spray intranasal QAM 03/08/24 03/08/24 History mcg/actuation nasal spray,suspension gabapentin 300 mg capsule 300 mg PO TID 03/08/24 03/08/24 History guaifenesin 100 mg/5 mL oral liquid 300 mg PO Q4H PRN Cough 03/08/24 03/08/24 History guaifenesin 600 mg tablet, 600 mg PO Q12 03/08/24 03/08/24 History extended release 12 hr (Mucinex) ipratropium 0.5 mg-albuterol 3 mg 3 ml inhalation QID 03/08/24 03/08/24 History (2.5 mg base)/3 mL nebulization soln loperamide 2 mg tablet (Imodium 2 mg PO .Q2HR PRN Diarrhea 03/08/24 03/08/24 History A-D) loratadine 10 mg tablet 10 mg PO DAILY 03/08/24 03/08/24 History methenamine hippurate 1 gram tablet 1 g PO BID 03/08/24 03/08/24 History nystatin 100,000 unit/mL oral 5 ml PO QID 03/08/24 03/08/24 History suspension ondansetron HCl 4 mg tablet 4 mg PO Q6H PRN Nausea 03/08/24 03/08/24 History oxycodone 5 mg tablet 5 mg PO BID PRN .pain 5-10 03/08/24 03/08/24 History oxymetazoline 0.05 % nasal mist 2 spray intranasal Q12H PRN 03/08/24 03/08/24 History (Afrin (oxymetazoline)) .epistaxis pantoprazole 40 mg tablet,delayed 40 mg PO AMHS 03/08/24 03/08/24 History release phenazopyridine 200 mg tablet 200 mg PO Q8 PRN .bladder spasm 03/08/24 03/08/24 History (Pyridium) prednisone 10 mg tablet 10 mg PO QAM 03/08/24 03/08/24 History rosuvastatin 20 mg tablet 20 mg PO HS 03/08/24 03/08/24 History sodium chloride-aloe vera nasal 1 applic topical TID PRN .. 03/08/24 03/08/24 History gel ([place] Saline nasal gel) sucralfate 100 mg/mL oral 10 ml PO QID 03/08/24 03/08/24 History suspension Past Med/Surg History Problem List (Updated 03/08/24 @ 18:11 by Mark Kee DO) Pyelonephritis (Acute) Pyelitis Elevated troponin Aspiration pneumonia Acute respiratory failure with hypoxia and hypercapnia Hypoxia (Acute) Discharge planning issues DVT prophylaxis GERD (gastroesophageal reflux disease) Anxiety Change in mental status (Acute) Urinary tract infection (Acute) Neuroforaminal stenosis of lumbar spine Hand abrasion Back pain Lumbar radiculopathy Greater trochanteric pain syndrome Leg pain, right COPD (chronic obstructive pulmonary disease) (Acute) Abdominal pain (Acute) Abnormal involuntary movements Hypophosphatemia Metabolic encephalopathy (Acute) Acute exacerbation of chronic obstructive pulmonary disease (COPD) Acute exacerbation of COPD with asthma Dysphagia Encounter for pre-operative examination Anemia GI bleed COPD (chronic obstructive pulmonary disease) "on home O2" Osteoporosis HTN (hypertension) Peripheral vascular disease Hyperlipidemia GERD (gastroesophageal reflux disease) Anxiety CAD (coronary artery disease) "Minimal non-obstructive CAD by left heart cath 2007" On 12/02/14 16:15 Jaye Nye wrote "Minimal non-obstructive CAD by left heart catherization 2007" Trigger finger History of appendectomy Arthritis of left knee Dysphagia Intractable nausea and vomiting Leg pain, left Weakness Weakness Dysphagia Asymptomatic bilateral carotid artery stenosis "s/p bilateral carotid endarterectomy" History of esophageal stricture Medical History (Updated 03/08/24 @ 18:11 by Mark Kee DO) Acute CVA (cerebrovascular accident) TIA (transient ischemic attack) detention resident resident of [facility] re[facility] History of GI bleed History of anemia History of esophageal dilatation Diarrhea Difficulty swallowing PVD (peripheral vascular disease) Osteoporosis Arthritis Anxiety SOB (shortness of breath) on exertion Chronic obstructive pulmonary disease OXYGEN 3-4 L/MIN CONTINUOUSLY CAD (coronary artery disease) F/U DR Angélica LEONARDO Hyperlipidemia Hypertension Surgical History (Updated 03/08/24 @ 15:05 by Gallo Irvin MD) Hx of esophagogastroduodenoscopy "EGD 12/04/11 Dr. Woods- large hiatal hernia. stomach and small intestine were normal. esophagus dilated, small tear in the UES" History of left heart catheterization H/O colonoscopy "Colonoscopy 09/06/13 Dr. Woods- sigmoid diverticulosis, internal hemorrhoids, no polyps" On 12/02/14 16:04 Jaye Nye wrote "2012-adenomatous polyp" Status post insertion of iliac artery stent "Right common iliac artery stent and right external iliac artery angioplasty on 06/22/14, Dr. Rodriguez, [facility]" History of hemorrhoidectomy History of knee surgery S/p bilateral carotid endarterectomy H/O vascular surgery RIGHT ILIAC ARTERY STENT PLACEMENT H/O knee surgery History of appendectomy History of esophagogastroduodenoscopy (EGD) History of colonoscopy History of cataract surgery R/L H/O hemorrhoidectomy H/O carotid endarterectomy R/L History of cardiac cath NO STENTS Family History Other No family history of adverse response to anesthesia Social History Smoking Status: Former smoker Age Started Using Tobacco: 19; packs per day: 2; Cigarettes Per Day: 5-10 CIG a day ADVISED; Do You Dip or Chew Tobacco: No; Preferred Language: Albanian Communication Ability: Impaired Communication Ability Comment: confused [employer] Required: No Beliefs That Will Affect Care: None marital status: / Current Living Situation: [facility] Current Living Situation Comment: [facility] How many Children do You have: 1 Other Information That Helps Us Care for You: No Feels Safe at Home: Yes Safety Concerns: Feels Safe At This Time Assistive Devices: Hospital Bed, Oxygen - Continuous and Walker Review of Systems Review of Systems: All systems reviewed & are unremarkable except as noted in HPI & below Physical Exam Constitutional: WD/WN, vitals as above Eyes: PERRL, conjunctivae normal, anicteric sclerae ENMT: external ear and nose normal, oropharynx normal Neck: trachea midline, no thyromegaly Respiratory: normal respiratory effort; no respiratory distress Auscultation: + wheezes (mild end expiraotry wheeze); breath sounds present, no diminished lung sounds, no crackles, no rales and no rhonchi Cardiovascular: Rate/Rhythm: regular rate and regular rhythm Heart Sounds: no murmur Gastrointestinal (Abdomen): normal bowel sounds, soft, nontender, no hepatosplenomegaly Musculoskeletal: no cyanosis or clubbing, extremities motor strength 5/5 Skin: no rashes, warm and dry (no areas of cellulitis seen) Neurologic: moves all extremities, awake and + confused; no focal motor deficits Speech / Cognition: normal speech Psychiatric: Orientation: alert and oriented to person (self); + not oriented to place and + not oriented to time Results & Data Results & Data Vital Signs (Past 12 Hours) Vital Signs Temp Pulse Pulse Resp BP BP Pulse Ox 03/08/24 14:01 92 H 22 133/50 L 96 03/08/24 12:57 98 03/08/24 12:24 97 H 03/08/24 12:02 98 H 22 112/75 96 03/08/24 12:02 36.9 C 98 H 22 112/75 96 O2 Del Method O2 Flow Rate 03/08/24 14:01 Nasal Cannula 3 03/08/24 12:57 Room Air 03/08/24 12:24 03/08/24 12:02 Nasal Cannula 3 03/08/24 12:02 Nasal Cannula 3 Laboratory Results Abnormal lab results 03/08/24 03/08/24 Range/Units 12:20 12:55 RBC 4.12 L (4.20-5.40) M/uL MCHC 30.9 L (32.0-36.0) g/dL Neut # (Auto) 7.70 H (1.40-6.50) K/uL Lymph # (Auto) 0.70 L (1.20-3.40) K/uL Chloride 93 L (98-107) mmol/L Carbon Dioxide 40 H (21-32) mmol/L Glucose 121 H (70-99(Fasting)) mg/dl Globulin 2.4 L (2.5-4.0) gm/dl Urine Blood Trace H (Negative) Urine Nitrite Positive A (Negative) Ur Leukocyte Esterase 1+ H (Negative) Urine RBC (Auto) 3-5 H (0-2) /hpf Diagnostic Findings ABDOMEN AND PELVIS CT WITH IV CONTRAST CT DOSE: 1829.62 mGy.cm HISTORY: Acute mid abdominal pain abd pain / l mid abd TECHNIQUE: Multiaxial CT images of the abdomen and pelvis were performed following the IV administration of 94 cc of Optiray, A dose lowering technique was utilized adhering to the principles of ALARA. COMPARISON STUDY: 02/13/2024 FINDINGS: Motion degraded exam. Pulmonary emphysema. No pneumatosis, free air or portal venous gas is present. Liver, spleen, adrenal glands and pancreas are unremarkable. There is a 2.6 cm water attenuation right renal lesion. This is consistent with a cyst. Moderate bilateral renal cortical thinning is present. Mild urothelial thickening of the renal collecting systems and ureters. Hysterectomy. Bladder wall thickening is unchanged. The caliber and wall thickness of small and large bowel are normal. Small hiatal hernia. There is a moderate amount of stool within the right colon. The appendix is not visualized. No inflammation is identified. There is extensive aortoiliac atherosclerotic plaque. No ascites is present. There are no fluid collections. Chronic T12 and L1 compression fractures are unchanged. No acute fractures are identified within visualized skeletal structures. This study is mildly compromised by motion artifact. IMPRESSION: 1. Motion degraded exam. No bowel obstruction or bowel wall thickening. 2. Suggested cystitis with findings suggestive of associated bilateral pyelitis/ureteritis. Correlate with urinalysis. 3. Incidental findings as above. Medications Administered ER Medications Given: NSS 1L bolus Ceftriaxone 2g IV Code Status & VTE Plan Code Status DNR/DNI - per documentation signed at [facility] (noted this is a change from prior hospitalization), patient currently lacks capacity but is off her baseline, daughter did not worm picker when called VTE Prophylaxis Plan VTE Prophylaxis will be ordered: Yes PG Care Time/CCT Total # of Minutes Spent Total Time Spent with Patient: Total time spent is greater than 50% in coordination of care (as documented) at patient's floor/unit and/or counseling patient: Coding Level of Care Code 48072 INT INP/OBS CARE 3/75MIN Diagnoses Pyelitis N12 COPD (chronic obstructive pulmonary disease) J44.9 Dysphagia R13.10
[2024-03-08] MEDS: cefTRIAXone SODIUM 2,000 MG/50 ML BAG IV STA (15:04)
[2024-03-08 15:17] LABS: C Reactive Protein < 0.50 mg/dl (0-0.5)
[2024-03-08] MEDS: ALBUT/IPRATROP 3MG/0.5MG NEB 3 ML VIAL NEB STA (16:55)
[2024-03-08] MEDS: ALBUT/IPRATROP 3MG/0.5MG NEB 3 ML VIAL ONE (16:56)
[2024-03-08] MEDS ORDERED: ALBUTEROL HFA 8 GM INHALER INH PRN (19:30)
[2024-03-08] MEDS ORDERED: PHENAZOPYRIDINE HCL 200 MG TAB PO PRN (19:30)
[2024-03-08] MEDS ORDERED: OXYMETAZOLINE 0.05% 30 ML BTL NAE PRN (19:49)
[2024-03-08] MEDS: ALBUT/IPRATROP 3MG/0.5MG NEB 3 ML VIAL INH SCH (20:25)
[2024-03-08] MEDS: ENOXAPARIN INJ 40 MG/0.4 ML SYR SQ SCH (21:54)
[2024-03-08] MEDS: NYSTATIN SUSP 500,000 U/5 ML UDC PO SCH (21:54)
[2024-03-08] MEDS: DICLOFENAC SOD 1% GEL 100 GM TUBE EXT SCH (21:56)
[2024-03-08] MEDS: busPIRone 7.5 MG TAB PO SCH (21:57)
[2024-03-08] MEDS: GABAPENTIN 300 MG CAP PO SCH (21:58)
[2024-03-08] MEDS: SACCHAROMYCES BOULARDII 250 MG CAP PO SCH (21:58)
[2024-03-08] MEDS: PANTOprazole 40 MG TAB PO SCH (21:58)
[2024-03-08] MEDS: FAMOTIDINE 20 MG TAB PO SCH (21:59)
[2024-03-08] MEDS: guaiFENesin 600 MG TABCR PO SCH (21:59)
[2024-03-08] MEDS: ROSUVASTATIN CALCIUM 20 MG TAB PO SCH (21:59)
[2024-03-08] MEDS: SUCRALFATE 1 GM/10 ML UDC PO SCH (22:15)
[2024-03-08] MEDS: fentaNYL 12 MCG/HR TDSY TD SCH (22:16)
[2024-03-08] MEDS: clonazePAM 0.5 MG TAB PO SCH (22:20)
[2024-03-09] MEDS: CHECK fentaNYL PATCH PLACEMENT SCH (00:15)
[2024-03-09] MEDS: ONDANSETRON 4 MG OD TAB PO PRN (05:51)
[2024-03-09] MEDS: oxyCODONE HCL IR 5 MG TAB (IMMEDIATE RELEASE) PO PRN (06:09)
[2024-03-09] MEDS: FORMOTEROL 20 MCG/2 ML VIAL INH SCH (07:15)
[2024-03-09] MEDS: BUDESONIDE 0.5 MG/2 ML VIAL (PULMICORT) INH SCH (07:15)
[2024-03-09 07:32] LABS: Basophils # (auto) 0.06 K/uL (0.00-0.20); Eosinophils # (auto) 0.22 K/uL (0.00-0.50); Eosinophils % (auto) 3.7 %; Hematocrit (blood only) 36.3 % (37.0-47.0); Hemoglobin 11.2 g/dl (12.0-16.0); Immature Granulocytes # (auto) 0.02 K/uL (0.01-0.20); Immature Granulocytes % (auto) 0.3 %; Lymphocytes % (auto) 25.3 %; Mean Corpuscular Hemoglobin 29.2 pg (25.0-34.0); Mean Corpuscular Hgb Conc 30.9 g/dL (32.0-36.0); Mean Corpuscular Volume 94.5 fL (80.0-100.0); Mean Platelet Volume 9.6 fL (9.4-12.4); Monocytes # (auto) 0.87 K/uL (0.11-0.59); Monocytes % (auto) 14.7 %; Neutrophils # (auto) 3.26 K/uL (1.40-6.50); Platelet Count 259 K/uL (130-400); RDW Coefficient of Variation 12.8 % (11.5-14.5); RDW Standard Deviation 44.1 fL (36.4-46.3); Red Blood Count 3.84 M/uL (4.20-5.40); White Blood Count 5.93 K/ul (4.8-10.8)
[2024-03-09 08:15] LABS: BUN Creatinine Ratio 10.4 (10-20); Calcium 8.9 mg/dl (8.6-10.3); Creatinine Clr Calc Pharmacy 37.6 ml/min; Est GFR (African American) 65.2 ml/min; Est GFR (Non-African American) 56.2 ml/min; Potassium 3.4 mmol/L (3.5-5.1)
[2024-03-09 08:57] LABS: Base Excess ABG 11.5 mEq/L (-9-1.8); HCO3 ABG 40 mmol/L (19-24); Oxygen Saturation ABG 96.4 % (90-95); PCO2 ABG 67 mmHg (35-46); PO2 ABG 67 mmHg (80-95); pH ABG 7.38 (7.35-7.45)
[2024-03-09] MEDS ORDERED: PNEUMOCOCCAL VACCINE (PCV20) 20-VAL CONJ-DIP CRM/PF 0.5 ML SYR IM ONE (09:00)
[2024-03-09 09:09] LABS: Allen Test Pos (Pos)
[2024-03-09] MEDS: ESCITALOPRAM OXALATE 10 MG TAB PO SCH (09:49)
[2024-03-09] MEDS: dilTIAZem HCl 60 MG TAB PO SCH (09:49)
[2024-03-09] MEDS: CLOPIDOGREL BISULFATE 75 MG TAB PO SCH (09:49)
[2024-03-09] MEDS: LORATADINE 10 MG TAB PO SCH (09:53)
[2024-03-09] MEDS: predniSONE 10 MG TABLET PO SCH (09:53)
[2024-03-09] MEDS: FLUTICASONE PROPIONATE NA SPR 16 GM BTL NAE SCH (09:54)
--- NOTE | 2024-03-09 10:34 | Hospitalist Progress Note ---
Date of Service March 09, 2024 Assessment & Plan (1) Pyelitis: (2) COPD (chronic obstructive pulmonary disease): (3) Dysphagia: (4) DVT prophylaxis: (5) GERD (gastroesophageal reflux disease): (6) Anxiety: (7) CAD (coronary artery disease): (8) Peripheral vascular disease: (9) Osteoporosis: Plan 1. Pyelitis - Suggestive on imaging with complaint of left flank pain although no CVA tenderness on exam - UA w/ + nitrites, + trace blood. Urine and blood cultures pending - Ceftriaxone 2g IV daily empirically, -c--u-r-i-i-d-e-r- -b-o-k-g-e-r- -b-m-u-a-t-i-o-n- -o-f- -d-t-u-f-w-g-e-n-t- -g--i-v-e-n- -f-o-g-e-n-t-l-y- -x-u-g-a-t-e-d- -E-.- -c-o-l-i- -U-T-I- -i-n- -A-p-r-i-l- - Continue on Ceftriaxone, -c--p-s-b-i-d-e-r- narrow-i--n-g- antibiotic choice depending on sensitivities results - Blood and urine cultures pending with NGTD - Eating and drinking well, no mIVF needed at this time - Aspiration precautions - PT/ OT consults in, appreciate recs 2. COPD/ Chronic Hypoxemic, Hypercapnic Respiratory Failure - Severe COPD at baseline, 3L NC at [facility] (No BiPAP) - Continue budesonide/formoterol nebs and prednisone daily, Mucinex BID - ABG indicative of compensated primary respiratory acidosis -w--i-t-h- -a- -r-d-g-u-j-i-q-p-d-o-r-y- -n-f-f-n-w-z-l-i-c- -j-b-t-y-k-u-s-i-s-.- - Will order overnight pulse ox with AM ABG to qualify for NIPV 3. Dysphagia/ GERD - Severe esophageal dysmotility on recent barium swallow - Deferred EGD per halfway notes given her poor baseline respiratory status which appears sensible - Strict aspiration precautions - Continue PPI, H2 mya, carafate 4. Anxiety/ Benzo Use - scheduled Klonopin BID, consider prn dosing while inpatient to avoid delerium - Request by daughter to reduce controlled substances - Frequent reorientation - Continue Lexapro 5 mg daily 5. Chronic Back Pain/ Osteoporosis - Fentanyl patch, oxycodone BID prn - Attempt to reduce as tolerated 6. HTN - Continue home meds with hold parameters in place 7. PVD - Continue Plavix, statin 8. CAD - Continue Statin Diet: Regular DVT Proph: Lovenox Dispo: Continue hospitalization while cultures pending Code Status: DNR/DNI Non-Italicized: Seda Ramos -C--n-c-x-s-e-d- -O-u-t-: Corrections made by Seth Camarillo DO Italicized: Written by Seth Camarillo DO Admission and Anticipated Discharge Date Admission Date: March 08, 2024 Supervising Physician Co-Signing Physician Notes I personally examined the patient and verified lane points of history and exam, discussed case, and agree with decision making and plan documented by Tatiana NEWSOME with contribution from Dr. Camarillo. Patient appears comfortable, Nasal cannula in place, lungs with scant expiratory wheezes, no rhonchi, regular rate and rhythm, no abdominal tenderness, no acute distress. Long discussion with daughter Katrina at bedside, she has concerns of oversedation at [facility], states that her mother is mostly somnolent when she is at her nursing facility, and that she is acting normally when she is in the hospital. Reviewed with Katrina that patient is currently on a chronic pain regimen including fentanyl 15 mcg/h patch in addition to as needed oxycodone as well as chronic scheduled clonazepam therapy which is likely contributing to her sedation. Of note patient has a history of opioid overdose that has required reversal in the past. We discussed reducing her opioid burden by removing the additional oxycodone and considering reduction of her daily clonazepam. Will perform overnight pulse oximetry as there has been concern that patient will require positive pressure ventilation, this will assist with coordinating outpatient. We also reviewed with patient and her daughter that at present we are awaiting cultures to tailor her antibiotic regimen. Zahra Perez is a 78 yo female w/ a pmh of CVA, COPD, HTN, opiate overdose, and dysphagia, that presented to the ED yesterday for agitation and left flank pain. Today, she states she is not experiencing any pain and does not have any concerns. Review of Systems 2 Review of Systems: Constitutional Denies fever, chills, sweats, dizziness, sleep disturbances, weakness, fatigue. HEENT Denies dysphagia, sinus pain, sore throat, ear pain, nasal discharge. Denies recent visual problems. Denies headache. Respiratory + SOB and wheezing at baseline. CV Denies chest pain, palpitations, bradycardia, tachycardia, edema, claudication. GI Denies n/v/d, constipation, heartburn, abdominal tenderness, change in bowel habits. Denies dysuria, hematuria, frequency, incontinence, retention, or urgency. MSK Denies muscle or joint pain. Neurologic Denies altered mental status, numbness. Physical Exam 2 Physical Exam: General Alert, well appearing, in no acute distress. HEENT Normocephalic, atraumatic, pupil equal round reactive to light. Respiratory + Bilateral wheezing on expiration. Cardiovascular Heart has regular rate and rhythm with no rubs, murmurs, or gallops. No carotid bruits, JVD, or lower extremity edema. Abdomen Soft, nontender, nondistended, normal bowel sounds, no hepatosplenomegaly. Musculoskeletal 2+ distal pulses palpated in all four ex tremities. + Dupuytren contracture of phalanges on left and right hands. Psychiatric Appropriate mood and affect. Results & Data Results & Data Vital Signs (Past 12 Hours) Vital Signs Temp Pulse Resp BP Pulse Ox O2 Del Method O2 Flow Rate 03/09/24 10:09 90 Nasal Cannula 3 03/09/24 07:50 36.9 C 86 16 124/54 L 98 Nasal Cannula 4 03/09/24 07:15 86 18 98 Nasal Cannula 4 03/08/24 23:00 145/68 H Laboratory Results 03/09/24 07:05 03/09/24 07:[address] 03/08/24 12:08 IMPRESSION: Motion degraded exam. No acute intracranial abnormality identified. Electronically signed by: Lonnie Oshea M.D. 03/08/2024 1:29 PM Abdomen/Pelvis CT 03/08/24 12:12 1. Motion degraded exam. No bowel obstruction or bowel wall thickening. 2. Suggested cystitis with findings suggestive of associated bilateral pyelitis/ureteritis. Correlate with urinalysis. Electronically signed by: Lonnie Oshea M.D. 03/08/2024 1:52 PM Medications Administered Albuterol (Albut/Ipratrop 3mg/0.5mg Neb 3 Ml Vial) 3 ml INH QIDR SMITHA; Protocol Budesonide (Budesonide 0.5 Mg/2 Ml Vial (Pulmicort)) 0.5 mg INH BIDR SMITHA Buspirone HCl (Buspirone 7.5 Mg Tab) 7.5 mg PO BID SMITHA Clonazepam (Clonazepam 0.5 Mg Tab) 0.5 mg PO AMHS SMITHA Clopidogrel Bisulfate (Clopidogrel Bisulfate 75 Mg Tab) 75 mg PO DAILY SMITHA Diclofenac Sodium (Diclofenac Sod 1% Gel 100 Gm Tube) 2 gm EXT QID SMITHA; Protocol Diltiazem HCl (Diltiazem Hcl 60 Mg Tab) 60 mg PO QAM SMITHA Enoxaparin Sodium (Enoxaparin Inj 40 Mg/0.4 Ml Syr) 40 mg SQ QPM SMITHA Escitalopram Oxalate (Escitalopram Oxalate 10 Mg Tab) 5 mg PO QAM SMITHA Famotidine (Famotidine 20 Mg Tab) 20 mg PO BID SMITHA Fentanyl (Fentanyl 12 Mcg/Hr Tdsy) 12 patch TD Q72H SMITHA Fluticasone Propionate (Fluticasone Propionate Na Spr 16 Gm Btl) 2 sprays MALATHI QAM SMITHA Formoterol Fumarate (Formoterol 20 Mcg/2 Ml Vial) 20 mcg INH BIDR SMITHA Gabapentin (Gabapentin 300 Mg Cap) 300 mg PO TID SMITHA Guaifenesin (Guaifenesin 600 Mg Tabcr) 600 mg PO Q12 SMITHA Loratadine (Loratadine 10 Mg Tab) 10 mg PO DAILY SMITHA Miscellaneous (Estradiol 0.01 % (0.1 Mg/Gram) Cream- Order Awaiting Action) 1 each N/A QS SMITHA Nystatin (Nystatin Susp 500,000 U/5 Ml Udc) 5 ml PO QID SMITHA Ondansetron HCl (Ondansetron 4 Mg Od Tab) 4 mg PO Q6H PRN Oxycodone HCl (Oxycodone Hcl Ir 5 Mg Tab (Immediate Release)) 5 mg PO BID PRN Pantoprazole Sodium (Pantoprazole 40 Mg Tab) 40 mg PO AMHS SMITHA Prednisone (Prednisone 10 Mg Tablet) 10 mg PO QAM SMITHA Rosuvastatin Calcium (Rosuvastatin Calcium 20 Mg Tab) 20 mg PO HS SMITHA Saccharomyces Boulardii (Saccharomyces Boulardii 250 Mg Cap) 250 mg PO BID SMITHA Sucralfate (Sucralfate 1 Gm/10 Ml Udc) 1 gm PO QID SMITHA Resident Activity Tracking Resident Involvement: Resident Care Provided Care Provided: Adult Hospital Medicine (2) COPD (chronic obstructive pulmonary disease) COPD type: unspecified COPD Qualified Code(s): J44.9 - Chronic obstructive pulmonary disease, unspecified (3) Dysphagia Dysphagia type: esophageal phase Qualified Code(s): R13.19 - Other dysphagia
[2024-03-09] MEDS: cefTRIAXone SODIUM 2,000 MG/50 ML BAG IV SCH (16:09)
[2024-03-09] MEDS: LACTATED RINGER'S 500 ML IV ONE (18:36)
[2024-03-09 19:56] LABS: Base Excess ABG 5.6 mEq/L (-9-1.8); HCO3 ABG 33 mmol/L (19-24); Oxygen Saturation ABG 96.9 % (90-95); PCO2 ABG 58 mmHg (35-46); PO2 ABG 73 mmHg (80-95); pH ABG 7.36 (7.35-7.45)
[2024-03-09 19:57] LABS: Allen Test Pos (Pos)
[2024-03-09] MEDS: LIDOCAINE 5% 1 PATCH TD STA (22:27)
[2024-03-09] MEDS: clonazePAM 0.5 MG TAB PO SCH (22:28)
[2024-03-09] MEDS: ACETAMINOPHEN 500 MG TAB PO PRN (22:28)
[2024-03-10 07:27] LABS: Base Excess ABG 11.6 mEq/L (-9-1.8); HCO3 ABG 38 mmol/L (19-24); Oxygen Saturation ABG 98.7 % (90-95); PCO2 ABG 56 mmHg (35-46); PO2 ABG 78 mmHg (80-95); pH ABG 7.44 (7.35-7.45)
[2024-03-10 07:29] LABS: Allen Test Pos (Pos)
[2024-03-10 07:35] LABS: Basophils # (auto) 0.05 K/uL (0.00-0.20); Basophils % (auto) 0.9 %; Eosinophils # (auto) 0.22 K/uL (0.00-0.50); Eosinophils % (auto) 3.8 %; Hematocrit (blood only) 34.5 % (37.0-47.0); Hemoglobin 10.6 g/dl (12.0-16.0); Immature Granulocytes # (auto) 0.02 K/uL (0.01-0.20); Immature Granulocytes % (auto) 0.3 %; Lymphocytes # (auto) 1.36 K/uL (1.20-3.40); Lymphocytes % (auto) 23.6 %; Mean Corpuscular Hemoglobin 28.5 pg (25.0-34.0); Mean Corpuscular Hgb Conc 30.7 g/dL (32.0-36.0); Mean Corpuscular Volume 92.7 fL (80.0-100.0); Mean Platelet Volume 9.7 fL (9.4-12.4); Monocytes # (auto) 0.72 K/uL (0.11-0.59); Monocytes % (auto) 12.5 %; Neutrophils % (auto) 58.9 %; Platelet Count 267 K/uL (130-400); RDW Coefficient of Variation 12.7 % (11.5-14.5); Red Blood Count 3.72 M/uL (4.20-5.40); White Blood Count 5.77 K/ul (4.8-10.8)
[2024-03-10 07:49] LABS: Albumin Globulin Ratio 1.6 (0.9-2); Albumin Level 3.5 gm/dl (3.4-5.0); BUN Creatinine Ratio 7.1 (10-20); Bilirubin,Total 0.3 mg/dl (0.2-1.0); Calcium 8.6 mg/dl (8.6-10.3); Creatinine Clr Calc Pharmacy 42.4 ml/min; Est GFR (African American) 75.5 ml/min; Est GFR (Non-African American) 65.2 ml/min; Globulin 2.2 gm/dl (2.5-4.0); Magnesium 1.7 mg/dl (1.7-2.4); Potassium 3.5 mmol/L (3.5-5.1); Total Protein 5.7 gm/dl (6.0-8.3)
[2024-03-10] MEDS: LOPERAMIDE HCL 2 MG CAP PO PRN (13:27)
--- NOTE | 2024-03-10 16:20 | Hospitalist Progress Note ---
Date of Service March 10, 2024 Assessment & Plan (1) Pyelitis: (2) COPD (chronic obstructive pulmonary disease): (3) Dysphagia: (4) DVT prophylaxis: (5) GERD (gastroesophageal reflux disease): (6) Anxiety: (7) CAD (coronary artery disease): (8) Peripheral vascular disease: (9) Osteoporosis: Plan Pyelitis - Suggestive on imaging with complaint of left flank pain although no CVA tenderness on exam - UA w/ + nitrites, + trace blood. Urine and blood cultures pending - Change Rocephin to Cefdinir BID on 03/11/24 - Blood and urine cultures pending with NGTD - Eating and drinking well, no mIVF needed at this time - Aspiration precautions - PT/ OT consults in, appreciate recs, no official recs placed yet, but feel patient could return to [facility] COPD/ Chronic Hypoxemic, Hypercapnic Respiratory Failure - Severe COPD at baseline, 3L NC at [facility] (No BiPAP) - Continue budesonide/formoterol nebs and prednisone daily, Mucinex BID - ABG indicative of compensated primary respiratory acidosis with a compensatory metabolic alkalosis. - overnight pulse ox with AM ABG completed Blood in Stool -Combo of BR blood and dark clots - Likely hemorrhoidal in origin - W/o significant hgb drop - With likely d/c tomorrow, hold lovenox DVT proph - Monitor CBC while inpatient, recommend outpatient colonoscopy Dysphagia/ GERD - Severe esophageal dysmotility on recent barium swallow - Deferred EGD per [facility] notes given her poor baseline respiratory status which appears sensible - Strict aspiration precautions - Continue PPI, H2 mya, carafate Anxiety/ Benzo Use - scheduled Klonopin BID, consider prn dosing while inpatient to avoid delerium - Request by daughter to reduce controlled substances - Frequent reorientation - Continue Lexapro 5 mg daily Chronic Back Pain/ Osteoporosis - Fentanyl patch, oxycodone BID prn - Attempt to reduce as tolerated HTN - Continue home meds with hold parameters in place PVD - Continue Plavix, statin CAD - Continue Statin Diet: Regular DVT Proph: hold lovenox, continue plavix Dispo: Likely D/c tomorrow Code Status: DNR/DNI Admission and Anticipated Discharge Date Admission Date: March 08, 2024 Supervising Physician Co-Signing Physician Notes Attending attestation Pt seen and examined in concert with Dr. Camarillo. In agreement with the documented findings as noted in the resident documentation with any exceptions or additions as noted here. At time of examination patient reports no acute pain, nausea, headache, br eathing difficulties, chest pain. On examination, S1/S2 nl RRR no MCG. CTAB. Abd NT/ND BS+ve Pyelitis - continue ceftriaxone and narrow to cefdinir in AM to complete course. COPD with chronic hypoxic respiratory failure - O2 per protocol, continue inhaler therapy as noted Else see resident documentation as noted. Subjective Patient seen at bedside this morning. No acute events reported overnight. Patient without any pain this morning, however, she is having somewhat bloody bowel movements with a combination of bright red blood and blood clots. She denies any pain with bowel movements but does have an extensive history of hemorrhoids. Otherwise no new complaints at this time, denies any shortness of breath or chest pain. Patient does state that she typically wears 3 L nasal cannula due to history of COPD. Review of Systems Review of Systems: All systems reviewed & are unremarkable except as noted in HPI & below Physical Exam Constitutional: well developed and well nourished Eyes: + anicteric sclerae Neck: normal visual inspection Respiratory: normal respiratory effort and + prolonged expiratory phase Cardiovascular: Rate/Rhythm: regular rate and regular rhythm Gastrointestinal (Abdomen): normal bowel sounds, soft, nontender, no hepatosplenomegaly Rectal Exam: + hemorrhoids Small clot extracted with rectal exam Skin: no rashes, warm and dry Neurologic: moves all extremities Psychiatric: Orientation: alert, oriented to person, oriented to place and cooperative Genitourinary: Speculum/Bimanual Exam: + atrophic vaginal mucosa; no vaginal bleeding Results & Data Results & Data Vital Signs (Past 12 Hours) Vital Signs Temp Pulse Pulse Resp BP Pulse Ox O2 Del Method 03/10/24 15:50 90 18 91 Nasal Cannula 03/10/24 14:31 36.7 C 83 18 106/54 L 93 Nasal Cannula 03/10/24 11:22 76 18 99 Nasal Cannula 03/10/24 09:01 36.5 C 18 113/62 03/10/24 07:27 84 18 93 Nasal Cannula 03/10/24 07:05 Nasal Cannula O2 Flow Rate 03/10/24 15:50 3 03/10/24 14:31 3 03/10/24 11:22 3 03/10/24 09:01 03/10/24 07:27 3 03/10/24 07:05 3 (2) COPD (chronic obstructive pulmonary disease) COPD type: unspecified COPD Qualified Code(s): J44.9 - Chronic obstructive pulmonary disease, unspecified (3) Dysphagia Dysphagia type: esophageal phase Qualified Code(s): R13.19 - Other dysphagia
[2024-03-10] MEDS: CEFDINIR 300 MG CAP PO SCH (20:14)
[2024-03-11 06:52] LABS: Albumin Globulin Ratio 1.6 (0.9-2); Albumin Level 3.6 gm/dl (3.4-5.0); BUN Creatinine Ratio 5.4 (10-20); Bilirubin,Total 0.2 mg/dl (0.2-1.0); Creatinine Clr Calc Pharmacy 48.8 ml/min; Est GFR (African American) 89.3 ml/min; Est GFR (Non-African American) 77.1 ml/min; Globulin 2.2 gm/dl (2.5-4.0); Magnesium 1.7 mg/dl (1.7-2.4); Potassium 3.5 mmol/L (3.5-5.1); Total Protein 5.8 gm/dl (6.0-8.3)
[2024-03-11 06:55] LABS: Basophils # (auto) 0.03 K/uL (0.00-0.20); Basophils % (auto) 0.4 %; Eosinophils # (auto) 0.18 K/uL (0.00-0.50); Eosinophils % (auto) 2.4 %; Hematocrit (blood only) 37.6 % (37.0-47.0); Hemoglobin 11.6 g/dl (12.0-16.0); Immature Granulocytes # (auto) 0.04 K/uL (0.01-0.20); Immature Granulocytes % (auto) 0.5 %; Lymphocytes # (auto) 1.35 K/uL (1.20-3.40); Lymphocytes % (auto) 18.1 %; Mean Corpuscular Hemoglobin 29.2 pg (25.0-34.0); Mean Corpuscular Hgb Conc 30.9 g/dL (32.0-36.0); Mean Corpuscular Volume 94.7 fL (80.0-100.0); Mean Platelet Volume 10.1 fL (9.4-12.4); Monocytes % (auto) 10.7 %; Neutrophils # (auto) 5.05 K/uL (1.40-6.50); Neutrophils % (auto) 67.9 %; Platelet Count 281 K/uL (130-400); RDW Coefficient of Variation 12.7 % (11.5-14.5); RDW Standard Deviation 44.2 fL (36.4-46.3); Red Blood Count 3.97 M/uL (4.20-5.40); White Blood Count 7.45 K/ul (4.8-10.8)
--- NOTE | 2024-03-11 09:12 | Discharge Summary ---
Date of Service March 11, 2024 Admission HPI Per Admitting Provider Ana Nichols is a 78-year-old female who presents to the ER with agitation, labored breathing and left flank pain per triage note. Unable to get any history from the patient as she doesn't know why she is here. She currently denies any chest pain, shortness of breath, nasal congestion, sinus pain, cough, abdominal pain, diarrhea, dysuria, fever or chills. She does note left flank pain but cannot give me any history regarding this. Unable to tell me where she is or the year. Discussed with Chyna ONEAL @ [facility] - increased confusion, walking out in hallway with clothes off, taking off oxygen, transferring without oxygen, grossly incontinent, playing with feces. Ongoing for last few days but much today. She was recently admitted for acute respiratory failure with hypoxia and hypercapnia due to UTI in setting of opiate use. Urine culture grew E. coli resistant to quinolones. She was discharged on Augmentin for total antibiotic duration of 7 days. Daughter did not spanish moss picker phone when called. Admission Exam Per Admitting Provider Constitutional: WD/WN, vitals as above Eyes: PERRL, conjunctivae normal, anicteric sclerae ENMT: external ear and nose normal, oropharynx normal Neck: trachea midline, no thyromegaly Respiratory: normal respiratory effort; no respiratory distress Auscultation: + wheezes (mild end expiraotry wheeze); breath sounds present, no diminished lung sounds, no crackles, no rales and no rhonchi Cardiovascular: Rate/Rhythm: regular rate and regular rhythm Heart Sounds: no murmur Gastrointestinal (Abdomen): normal bowel sounds, soft, nontender, no hepatosplenomegaly Musculoskeletal: no cyanosis or clubbing, extremities motor strength 5/5 Skin: no rashes, warm and dry (no areas of cellulitis seen) Neurologic: moves all extremities, awake and + confused; no focal motor deficits Speech / Cognition: normal speech Psychiatric: Orientation: alert and oriented to person (self); + not oriented to place and + not oriented to time Principal Diagnosis Pyelitis Discharge Exam Constitutional: WD/WN, vitals as above Eyes: anicteric sclerae ENMT: external ear and nose normal Neck: trachea midline Respiratory: normal respiratory effort; no respiratory distress Auscultation: breath sounds present, no diminished lung sounds, no crackles, no rales and no rhonchi Cardiovascular: Rate/Rhythm: regular rate and regular rhythm Heart Sounds: no murmur Gastrointestinal (Abdomen): soft, nontender, no CVA tenderness b/l, no hepatosplenomegaly Skin: no rashes, warm and dry (no areas of cellulitis seen) Neurologic: moves all extremities, awake and alert Discharge Data Allergies Allergy/AdvReac Type Severity Reaction Status Date / Time metoclopramide Allergy Severe "lungs Verified 03/08/24 16:31 collapsed" cortisone Allergy Intermediate swelling Verified 03/08/24 16:31 salicylates Allergy Intermediate caused Verified 03/08/24 16:31 bleeding, can take EC aspirin Corticosteroids AdvReac Intermediate swelling Verified 03/08/24 16:31 (Glucocorticoids) Consultations 03/08/24 14:33 ED Decision to Admit Stat Ordered Studies 03/08/24 12:08 CT head/brain wo con Stat 03/08/24 12:12 CT abd pelvis IV con only Stat Hospital Course (1) Pyelitis: (2) COPD (chronic obstructive pulmonary disease): (3) Dysphagia: (4) DVT prophylaxis: (5) GERD (gastroesophageal reflux disease): (6) Anxiety: (7) CAD (coronary artery disease): (8) Peripheral vascular disease: (9) Osteoporosis: Plan Acute L pyelitis - Suggestive on CT imaging with complaint of left flank pain although no CVA tenderness on exam - UA w/ + nitrites, + trace blood. Urine and blood cultures NGTD - Rocephin switched to cefdinir on 03/11, continue for 7-14 day course COPD with chronic hypoxemic, hypercapnic respiratory failure - Severe COPD at baseline, 3L NC at [facility] (No BiPAP) - Continue budesonide/formoterol nebs and prednisone daily, Mucinex BID - ABG indicative of compensated primary respiratory acidosis with a compensatory metabolic alkalosis. - Overnight pulse ox with AM ABG completed- <5 desaturation events noted Hematochezia - Noted hematochezia during hospitalization - Likely hemorrhoidal in origin - Hgb has remained stable - Chemoprophylaxis held, continue to hold until confirmed resolution -Plavix continued - Recommend outpatient colonoscopy Dysphagia/ GERD - Severe esophageal dysmotility on recent barium swallow - Deferred EGD per [facility]ci notes given her poor baseline respiratory status - Strict aspiration precautions - Continue PPI, H2 mya, Carafate Anxiety with chronic benzodiazepine use - scheduled Klonopin BID per home medications - Request by daughter to reduce controlled substances - Frequent reorientation - Continue Lexapro 5 mg daily Chronic back pain - Pain controlled with Fentanyl patch, oxycodone PRN - Per discussion with daughter, please attempt to reduce opioid use/wean completely on discharge HTN - Continue home medications - BP stable during stay PVD - Continue Plavix, statin CAD - Continued statin - No acute issues Diet: Regular DVT ppx: Held Lovenox until discharge due to LGIB Dispo: D/c to [facility] today 03/11 Code Status: DNR/DNI Total Time Total Time Spent Total Time Spent (In Minutes): 40 Discharge Plan Discharge Items Patient Disposition: Transfer Inpatient Rehab Fac Reason For Visit: PYELITIS Discharge Diagnosis: Pyelitis Activity: Resume your previous activity Non-emergency contact: Primary Care Provider Call non-emergency contact if: your symptoms worsen Follow-up/Referrals: [facility] [Primary Care Provider] - Diet: Regular Addtl Attending Provider Instructions: Acute L pyelitis - Suggestive on CT imaging with complaint of left flank pain although no CVA tenderness on exam - UA w/ + nitrites, + trace blood. Urine and blood cultures NGTD - Rocephin switched to cefdinir on 03/11, continue for 7-14 day course COPD with chronic hypoxemic, hypercapnic respiratory failure - Severe COPD at baseline, 3L NC at [facility] (No BiPAP) - Continue budesonide/formoterol nebs and prednisone daily, Mucinex BID - ABG indicative of compensated primary respiratory acidosis with a compensatory metabolic alkalosis. - Overnight pulse ox with AM ABG completed- <5 desaturation events noted Hematochezia - Noted hematochezia during hospitalization - Likely hemorrhoidal in origin - Hgb has remained stable - Chemoprophylaxis held, continue to hold until confirmed resolution -Plavix continued - Recommend outpatient colonoscopy Dysphagia/ GERD - Severe esophageal dysmotility on recent barium swallow - Deferred EGD per [facility]ci notes given her poor baseline respiratory status - Strict aspiration precautions - Continue PPI, H2 mya, Carafate Anxiety with chronic benzodiazepine use - scheduled Klonopin BID per home medications - Request by daughter to reduce controlled substances - Frequent reorientation - Continue Lexapro 5 mg daily Chronic back pain - Pain controlled with Fentanyl patch, oxycodone PRN - Per discussion with daughter, please attempt to reduce opioid use/wean completely on discharge HTN - Continue home medications - BP stable during stay PVD - Continue Plavix, statin CAD - Continued statin - No acute issues Diet: Regular DVT ppx: Held Lovenox until discharge due to LGIB Dispo: D/c to [facility] today 03/11 Code Status: DNR/DNI Pending Studies at Discharge: No Stand-Alone Forms: My [facility] Skilled Items Patient informed of condition?: Yes DNR: Yes Discharge Level of Care: Skilled Communicable Disease: No Discharge Prognosis: Stable Lines: None Urinary Catheter: No Medications and DC Order Prescriptions: New cefdinir 300 mg capsule 300 mg PO BID 6 Days Qty: 12 0RF Continued ascorbic acid (vitamin C) [Vitamin C] 1,000 mg Tablet 1 g PO QAM albuterol sulfate 2.5 mg /3 mL (0.083 %) solution for nebulization 2.5 mg continuous nebulization .Q2HR PRN (Reason: Shortness Of Breath Or Wheezing) clonazepam 0.5 mg tablet 0.5 mg PO AMHS loperamide [Imodium A-D] 2 mg Tablet 2 mg PO .Q2HR PRN (Reason: Diarrhea) Rx Instructions: administer after each loose stool until symptoms controlled; do not exceed 8 mg per 24 hrs clopidogrel [Plavix] 75 mg Tablet 75 mg PO DAILY guaifenesin 100 mg/5 mL Liquid 300 mg PO Q4H PRN (Reason: Cough) famotidine 20 mg Tablet 20 mg PO BID cyanocobalamin (vitamin B-12) [Vitamin B-12] 500 mcg Tablet 500 mcg PO DAILY gabapentin 300 mg capsule 300 mg PO TID buspirone 7.5 mg Tablet 7.5 mg PO BID budesonide 0.5 mg/2 mL suspension for nebulization 0.5 mg inhalation BID estradiol 0.01 % (0.1 mg/gram) cream 1 appful VAGINAL .MON, WED, FRI @HS albuterol sulfate 90 mcg/actuation HFA aerosol inhaler 2 puff INHALATION Q12 PRN (Reason: Shortness Of Breath) diltiazem HCl 60 mg tablet 60 mg PO QAM fluticasone propionate 50 mcg/actuation spray,suspension 2 spray INTRANASAL QAM Afrin (oxymetazoline) 0.05 % Mist 2 spray INTRANASAL Q12H PRN (Reason: .epistaxis) Saccharomyces boulardii [Florastor] 250 mg Capsule 250 mg PO BID Rx Instructions: am,hs escitalopram oxalate 5 mg Tablet 5 mg PO QAM Painter Saline Gel 1 applic TOPICAL TID PRN (Reason: ..) fentanyl 12 mcg/hr patch 72 hour 12 mcg topical [id number] arformoterol [Brovana] 15 mcg/2 mL Solution For Nebulization 2 ml INHALATION BID guaifenesin [Mucinex] 600 mg Tablet Extended Release 12hr 600 mg PO Q12 nystatin 100,000 unit/mL suspension 5 ml PO QID Rx Instructions: swish & swallow acetaminophen [Tylenol] 325 mg Tablet 650 mg PO Q6 PRN (Reason: Fever Or Pain) prednisone 10 mg Tablet 10 mg PO QAM Rx Instructions: see taper instructions ipratropium-albuterol 0.5 mg-3 mg(2.5 mg base)/3 mL Solution For Nebulization 3 ml INHALATION QID sucralfate 100 mg/mL suspension 10 ml PO QID phenazopyridine [Pyridium] 200 mg Tablet 200 mg PO Q8 PRN (Reason: .bladder spasm) ondansetron HCl 4 mg Tablet 4 mg PO Q6H PRN (Reason: Nausea) methenamine hippurate 1 gram tablet 1 g PO BID pantoprazole 40 mg Tablet,Delayed Release (Dr/Ec) 40 mg PO AMHS loratadine 10 mg Tablet 10 mg PO DAILY oxycodone 5 mg Tablet 5 mg PO BID PRN (Reason: .pain 5-10) eucalyptus-menthol Lozenge 1 mika MUCOUS MEMBRANE .Q2HR PRN (Reason: Cough) rosuvastatin 20 mg Tablet 20 mg PO HS diclofenac sodium 1 % Gel 2 g TOPICAL QID Rx Instructions: Apply to bi-lateral shoulder and right thigh Discharge Orders: Discharge Order (Routine); Ordered 03/11/24 Ordered By: Hans Paz Admission Data Admit Date/Time: 03/08/24 15:21 Attending Provider: Jadon Raphael Admit Provider: Gallo Irvin Primary Care Provider: [facility] Other Providers: Gallo Irvin; [facility] Other Interventions: Discharge Summary Assessment (RN) Last Done: 03/11/24 12:27 Supervising Physician Co-Signing Physician Notes Attending attestation Pt seen and examined in concert with Dr. Camarillo. In agreement with the documented findings as noted in the resident documentation with any exceptions or additions as noted here. At time of examination patient reports no acute pain, nausea, headache, chest pain. On examination, S1/S2 nl RRR no MCG. CTAB. Abd NT/ND BS+ve Pyelitis - cefdinir to complete course. COPD with chronic hypoxic respiratory failure - returned to baseline O2 use, resume home inhaler therapy. Else see resident documentation as noted. Total attending physician time spent with this patient's care on the day of discharge: 20 min.
--- OUTSIDE RECORDS SUMMARY | 2024-03-11 19:40 | External Medical Summary | Summary of Care ---
Author Name Unknown Organization [facility] Address [address] [place] [address] Phone [phone] Care Team Providers Care Crime Analyst Name Role Phone Marguerite SERRA MD, Moiz Mcmanus Primary Care Pr ovider Encounter Details Date Type Department Care Team (Late st Contact Info) Description 02/15/2024 Result Scan Unspecified Department <No scans attached> Allergies Active Allergy Reactions Criticality Noted Date Comments Cortisone Edema Other High 08/15/2002 Corticosteriods Other reaction(s): swelling Metoclopramide High 02/19/2022 Other reaction(s): "lungs collapsed" Other Allergy (See Comments) High 02/19/2022 Other reaction(s): swelling Metoclopramide Hcl Neuro complications (Please comment) Low 05/28/2010 Lip quivering Salicylates Low 02/19/2022 Other reaction(s): caused bleeding, can take EC aspirin documented as of this encounter (statuses as of 03/10/2024) Medications Medication Sig Dispensed Refills Start Date End Date Status Mometasone Furoate 50 MCG/ACT nasal sprayIndications:Chr onic rhinitis INHALE TWO SPRAYS PER NOSTRIL ONCE A DAY 1 Inhaler 5 04/10/2016 Active Nebulizers (NEBULIZER COMPRESSOR) MISCIndications:Toba supervisor trust accounts use disorder,Hypoxemia,C OPD, severe (HCC),COPD, moderate (HCC) [...] 05/10/2020 Active Vitamin D, Cholecalciferol, 50 MCG (1999 UT) CAPS Takes one by mouth daily [...] [facility] Muscle Rub 4-10-30 % External Cream (Pnprfvf-Vjkkolh-Lyv hyl Devin)Indications:Pain Apply topically to affected area [...] 0.5 mg in the evening. 60 mL 12/24/2023 Active predniSONE 20 MG Oral Tablet (Deltasone) 2 tablets by mouth daily for 5 days. 10 Tablet 0 12/24/2023 Active Additional Information Patient not taking.Reported on 01/25/2024 Arformoterol Tartrate 15 MCG/2ML Inhalation Nebulization Solution (Brovana) Inhale 15 mcg by mouth in the morning and 15 mcg before bedtime. 120 mL 11 12/24/2023 Active documented as of this encounter (statuses as of 03/10/2024) Active Problems Problem Noted Date Diagnosed Date [...] as of this encounter (statuses as of 03/10/2024) Resolved Problems Problem Noted Date Diagnosed Date [...] as of this encounter (statuses as of 03/10/2024) Immunizations Name Administration Dates Next Due COVID-19 [...] Care Team (Late st Contact Info) Description 05/25/2024 8:30 AM EDT Office Visit Rheumatology [facility] [address] [facility] [place] [address] Wade Bey PA-C [address] [place] [address] 06/14/2024 9:30 AM EDT Office Visit Gastroenterology, [facility] [address] [place] [address] Magui Tena CRNP [address] [place] [address] 12/26/2024 1:00 PM EST Office Visit Sleep Disorders Ctr [facility] [address] [place] [phone] Aishwarya Jacobo CRNP [address] [place] [address] Health Maintenance Due Date Last Done Comments Albumin/Creatinine Ratio 1963 Hepatitis C Screening 1963 Zoster Vaccines (2 of 3) 12/02/2012 10/07/2012 DTaP,Tdap,and Td Vaccines (2 - Td or Tdap) 04/19/2018 04/19/2008 GFR 03/03/2023 02/15/2024, 02/22, 04/23/2021, Additional history exists COVID-19 Vaccine ( - [...] D LEVEL ONCE IN A LIFETIME-USE SMARTSET# [id number] Completed 04/23/2021, 07/17/2020, 08/24/2019, Additional history exists Lung Cancer Screening Completed 04/25/2021 , 01/20/2021, 06/22/2019, Additional history exists GARDASIL-HPV IMMUNIZATION SERIES Aged Out No longer eligible based on patient's age to complete this topic Hepatitis B Aged Out No longer eligi ble based on patient's age to complete this topic MENINGOCOCCAL (MENACTRA/MENVEO) Aged Out No longer eligible based on patient's age to complete this topic documented as of this encounter Medical Devices Implanted Type Area Maintenance Machinist Device Identifier Shelf Expiration Date Model / Serial / Lot Stent Assurant [id number] - [id number] Implanted:Qty: 1 on 06/22/2014 at [facility] Right: Iliac [employer] : VASCULAR 12/07/2015 [id number] / / [id number] documented as of this encounter Procedures Procedure Name Priority Date/Time Associated Diagnosis Comments OUTSIDE LAB RESULTS 02/15/2024 documented in this encounter Results * OUTSIDE LAB RESULTS (02/15/2024) 02/15/2024 No Physician Data Unknown LABORATORY documented in this encounter Advance Directives Latest Code Status on File Code Status Date Activated Date Inactivated Comments Full Code 06/22/2014 1:40 PM 06/23/2014 1:30 PM Question Answer Comments Discussion of Advance Direct myles occurred with: Not Discussed Does the patient have a Living Will? No Does the patient have Health Care Power of Log Brander? No Healthcare Agents on File Name Relationship Healthcare Agent Relationship Communication Sussy Lui Other - (no specific identity) Second Alternate Health Care Agent Katrina Nichols Adult Child Power of Log Brander Care Teams Crime Analyst Relationship Specialty Start Date End Date Moiz Everett III, MD [address] [place] [address] PCP - General Internal Medicine 09/09/22 documented as of this encounter
--- OUTSIDE RECORDS SUMMARY | 2024-03-11 19:41 | External Medical Summary | Summary of Care ---
Author Name Unknown Organization [facility] Address [address] [facility] [address] Phone [phone] Care Team Providers Care Poolroom Table Attendant Name Role Phone Marguerite SERRA MD, Moiz Mcmanus Primary Care Pr ovider Encounter Details Date Type Department Care Team (Late st Contact Info) Description 03/10/2024 Orders Only Pulmonary Medicine, [facility] [address] [place] [address] Aishwarya Jacobo CRNP [address] [place] [address] Allergies Active Allergy Reactions Criticality Noted Date [...] 5 04/10/2016 Active Nebulizers (NEBULIZER COMPRESSOR) MISCIndications:Toba tobacco sizer use disorder,Hypoxemia,C OPD, severe (HCC),COPD, moderate (HCC) [...] [facility] Muscle Rub 4-10-30 % External Cream (Ldotbdq-Ssqkzoh-Dxf hyl Devin)Indications:Pain Apply topically to affected area [...] and 3 mL before bedtime. 360 mL 11 12/24/2023 Active Budesonide 0.5 MG/2ML Inhalation Suspension [...] 05/25/2024 8:30 AM EDT Office Visit Rheumatology [facility] [address] [place] [address] Wade Bey PA-C [address] [place] [address] 06/14/2024 9:30 AM EDT Office Visit Gastroenterology, [facility] [address] [place] [address] Magui Tena CRNP [address] [place] [address] 12/26/2024 1:00 PM EST Office Visit Sleep Disorders Ctr [facility] [address] [place] [phone] Aishwarya Jacobo CRNP [address] [place] [address] Health Maintenance Due Date Last Done Comments [...] D LEVEL ONCE IN A LIFETIME-USE SMARTSET# [id number] Completed 04/23/2021, 07/17/2020, 08/24/2019, Additional history exists [...] this encounter Medical Devices Implanted Type Area Acute Care Nursing Assistant Device Identifier Shelf Expiration Date Model / Serial / Lot Stent Assurant [id number] - [id number] Implanted:Qty: 1 on 06/22/2014 at [facility] Right: Iliac [employer] : VASCULAR 12/07/2015 [id number] / / [id number] documented as of this encounter Procedures Procedure Name Priority Date/Time Associated Diagnosis Comments CHEMISTRY-OUTSIDE Routine 02/15/2024 OUTSIDE LAB-CORONAVIRUS (COVID-19) Routine 02/13/2024 documented in this encounter Results * (ABNORMAL) CHEMISTRY-OUTSIDE (02/15/2024) Not all results display below - see scan for full detail OUTSIDE LAB (SEE SCANNED REPORT) Comment:SCAN INCLUDES - INPT LABS: CBCD, BMP, MG CREATININE-OUTSID E LAB 0.69 0.6 - 1.2 MG/DL OUTSIDE LAB (SEE SCANNED REPORT) EGFR-OUTSIDE LAB 82.8 ML/MIN/1.7 3M2 OUTSIDE LAB (SEE SCANNED REPORT) POTASSIUM-OUTSIDE LAB 3.9 3.5 - 5.1 MMOL/L OUTSIDE LAB (SEE SCANNED REPORT) GLUCOSE-OUTSIDE LAB 87 70 - 99 MG/DL OUTSIDE LAB (SEE SCANNED REPORT) HOURS FASTING OUTSID E LAB (SEE SCANNED REPORT) TRIGLYCERIDES-OUT SIDE LAB OUTSIDE LAB (SEE SCANNED REPORT) CHOLESTEROL-OUTSI DE LAB OUTSIDE LAB (SEE SCANNED REPORT) HDL-OUTSIDE LAB OUTS CATHERINE LAB (SEE SCANNED REPORT) CHOL/HDL RATIO-OUTSIDE LAB OUTSIDE LA B (SEE SCANNED REPORT) LDL (CALCULATED)-OUTS CATHERINE LAB OUTSIDE LAB (SEE SCANNED REPORT) LDL (DIRECT MEASURE)-OUTSIDE LAB OUTSIDE LAB (SEE SCANNED REPORT) HEMOGLOBIN, [id number] LAB OUTSIDE LAB (SEE SCANNED REPORT) PHOSPHORUS-OUTSID E LAB OUTSIDE LAB (SEE SCANNED REPORT) PTH-OUTSIDE LAB OUTS CATHERINE LAB (SEE SCANNED REPORT) MICROALBUMIN RATIO-OUTSIDE LAB OUTSIDE LA B (SEE SCANNED REPORT) PROTEIN, UA-OUTSIDE LAB OUTSIDE LAB (SEE SCANNED REPORT) HGB 10.7(A) 12.0 - 16.0 G/DL OUTSIDE LAB (SEE SCANNED REPORT) 02/15/2024 History Per Patient LABORATORY OUTSIDE LAB (SEE SCANNED REPORT) * OUTSIDE LAB-CORONAVIRUS (COVID-19) (02/13/2024) [id number] E LAB NEGATIVE NEGATIVE OUTSIDE LAB (SEE SCANNED REPORT) 02/13/2024 History Per Patient LABORATORY OUTSIDE LAB (SEE SCANNED REPORT) documented in this encounter Advance Directives Latest Code Status on File Code Status Date Activated Date Inactivated Comments Full Code 06/22/2014 1:40 PM 06/23/2014 1:30 PM Question Answer Comments Discussion of Advance Direct myles occurred with: Not Discussed Does the patient have a Living Will? No Does the patient have Health Care Power of Pipe Puller? No Healthcare Agents on File Name Relationship Healthcare Agent Relationship Communication Sheera Hu Other - (no specific identity) Second Alternate Health Care Agent Katrina Nichols Adult Child Power of Pipe Puller Care Teams Poolroom Table Attendant Relationship Specialty Start Date End Date Moiz Everett III, MD [address] [place] [address] PCP - General Internal Medicine 09/09/22 documented as of this encounter
== END 2024-03-11 14:18 ==
LOC: 3N 11:49 → SUATTDRO 15:21 → 3N 18:52

== ENCOUNTER 2024-03-11 16:28 | Inpatient (IN) ==
--- NOTE | 2024-03-11 16:45 | Emergency Department Note ---
History of Present Illness General Chief complaint: Hip Pain Time Seen by Provider: 03/11/24 16:44 History of Present Illness NAME: MARLENA PHILLIPS AGE: 78 SEX: F : 1945 ARRIVES VIA: Ambulance INFORMANT: Patient ED PROVIDER(S): DIAMOND Mandujano, Jean Weems MD The patient is a 78-year-old female who arrives to the emergency department for evaluation of right hip pain. The patient resides at [facility], and was discharged from this hospital earlier this morning for pyelonephritis. The patient was found on the ground out of her wheelchair with her back up to her dresser by nursing staff after being on assisted for 5 minutes. The patient denies head strike, however she does not recall the event. She is currently not on anticoagulants. She was reporting right hip pain, and she states she is unable to bear weight on the hip. She reports she does use a walker at baseline. I did speak with nursing staff at [facility], who states the patient did not have a prolonged downtime, however was unable to be placed back in the wheelchair due to pain, therefore EMS was contacted. Home Medications Medication Instructions Recorded Confirmed Type Saccharomyces boulardii 250 mg 250 mg PO BID 03/08/24 03/11/24 History capsule (Florastor) acetaminophen 325 mg tablet 650 mg PO Q6 PRN Fever Or Pain 03/08/24 03/11/24 History (Tylenol) albuterol sulfate 2.5 mg/3 mL 2.5 mg continuous nebulization 03/08/24 03/11/24 History (0.083 %) solution for nebulization .Q2HR PRN Shortness Of Breath Or Wheezing albuterol sulfate 90 mcg/actuation 2 puff inhalation Q12 PRN 03/08/24 03/11/24 History aerosol inhaler Shortness Of Breath arformoterol 15 mcg/2 mL solution 2 ml inhalation BID 03/08/24 03/11/24 History for nebulization (Brovana) ascorbic acid (vitamin C) 1,000 mg 1 g PO QAM 03/08/24 03/11/24 History tablet (Vitamin C) budesonide 0.5 mg/2 mL suspension 0.5 mg inhalation BID 03/08/24 03/11/24 History for nebulization buspirone 7.5 mg tablet 7.5 mg PO BID 03/08/24 03/11/24 History clonazepam 0.5 mg tablet 0.5 mg PO AMHS 03/08/24 03/11/24 History clopidogrel 75 mg tablet (Plavix) 75 mg PO DAILY 03/08/24 03/11/24 History cyanocobalamin (vitamin B-12) 500 500 mcg PO DAILY 03/08/24 03/11/24 History mcg tablet (Vitamin B-12) diclofenac sodium 1 % topical gel 2 g topical QID 03/08/24 03/11/24 History diltiazem HCl 60 mg tablet 60 mg PO QAM 03/08/24 03/11/24 History escitalopram oxalate 5 mg tablet 5 mg PO QAM 03/08/24 03/11/24 History estradiol 0.01% (0.1 mg/gram) 1 appful vaginal .MON, WED, FRI @HS 03/08/24 03/11/24 History vaginal cream eucalyptus-menthol oral mucosal 1 mika mucous membrane .Q2HR PRN 03/08/24 03/11/24 History lozenge Cough famotidine 20 mg tablet 20 mg PO BID 03/08/24 03/11/24 History fentanyl 12 mcg/hr transdermal 12 mcg topical [id number] 03/08/24 03/11/24 History patch fluticasone propionate 50 2 spray intranasal QAM 03/08/24 03/11/24 History mcg/actuation nasal spray,suspension gabapentin 300 mg capsule 300 mg PO TID 03/08/24 03/11/24 History guaifenesin 100 mg/5 mL oral liquid 300 mg PO Q4H PRN Cough 03/08/24 03/11/24 History guaifenesin 600 mg tablet, 600 mg PO Q12 03/08/24 03/11/24 History extended release 12 hr (Mucinex) ipratropium 0.5 mg-albuterol 3 mg 3 ml inhalation QID 03/08/24 03/11/24 History (2.5 mg base)/3 mL nebulization soln loperamide 2 mg tablet (Imodium 2 mg PO .Q2HR PRN Diarrhea 03/08/24 03/11/24 History A-D) loratadine 10 mg tablet 10 mg PO DAILY 03/08/24 03/11/24 History methenamine hippurate 1 gram tablet 1 g PO BID 03/08/24 03/11/24 History nystatin 100,000 unit/mL oral 5 ml PO QID 03/08/24 03/11/24 History suspension ondansetron HCl 4 mg tablet 4 mg PO Q6H PRN Nausea 03/08/24 03/11/24 History oxycodone 5 mg tablet 5 mg PO BID PRN .pain 5-10 03/08/24 03/11/24 History oxymetazoline 0.05 % nasal mist 2 spray intranasal Q12H PRN 03/08/24 03/11/24 History (Afrin (oxymetazoline)) .epistaxis pantoprazole 40 mg tablet,delayed 40 mg PO AMHS 03/08/24 03/11/24 History release phenazopyridine 200 mg tablet 200 mg PO Q8 PRN .bladder spasm 03/08/24 03/11/24 History (Pyridium) prednisone 10 mg tablet 10 mg PO QAM 03/08/24 03/11/24 History rosuvastatin 20 mg tablet 20 mg PO HS 03/08/24 03/11/24 History sodium chloride-aloe vera nasal 1 applic topical TID PRN .. 03/08/24 03/11/24 History gel (Burtrum Saline nasal gel) sucralfate 100 mg/mL oral 10 ml PO QID 03/08/24 03/11/24 History suspension cefdinir 300 mg capsule 300 mg PO BID 6 days #12 caps 03/11/24 03/11/24 Rx Allergies Allergy/AdvReac Type Severity Reaction Status Date / Time metoclopramide Allergy Severe "lungs Verified 03/08/24 16:31 collapsed" cortisone Allergy Intermediate swelling Verified 03/08/24 16:31 salicylates Allergy Intermediate caused Verified 03/08/24 16:31 bleeding, can take EC aspirin Corticosteroids AdvReac Intermediate swelling Verified 03/08/24 16:31 (Glucocorticoids) Past Med/Surg History Problem List (Updated 03/13/24 @ 00:07 by Background Dasam) Displaced fracture of right femoral neck Right femoral fracture (Acute) Pyelonephritis (Acute) Pyelitis Hypoxia (Acute) Discharge planning issues DVT prophylaxis GERD (gastroesophageal reflux disease) Anxiety Change in mental status (Acute) Urinary tract infection (Acute) Neuroforaminal stenosis of lumbar spine Hand abrasion Back pain Lumbar radiculopathy Greater trochanteric pain syndrome Leg pain, right COPD (chronic obstructive pulmonary disease) (Acute) Abdominal pain (Acute) Abnormal involuntary movements Hypophosphatemia Acute exacerbation of chronic obstructive pulmonary disease (COPD) Acute exacerbation of COPD with asthma Dysphagia Encounter for pre-operative examination Anemia GI bleed COPD (chronic obstructive pulmonary disease) "on home O2" Osteoporosis HTN (hypertension) Peripheral vascular disease Hyperlipidemia GERD (gastroesophageal reflux disease) Anxiety CAD (coronary artery disease) "Minimal non-obstructive CAD by left heart cath 2007" On 12/02/14 16:15 Jaye Nye wrote "Minimal non-obstructive CAD by left heart catherization 2007" Trigger finger History of appendectomy Arthritis of left knee Dysphagia Intractable nausea and vomiting Leg pain, left Weakness Weakness Dysphagia Asymptomatic bilateral carotid artery stenosis "s/p bilateral carotid endarterectomy" History of esophageal stricture Medical History Acute CVA (cerebrovascular accident) TIA (transient ischemic attack) assisted resident resident of [facility] History of GI bleed History of anemia History of esophageal dilatation Diarrhea Difficulty swallowing PVD (peripheral vascular disease) Osteoporosis Arthritis Anxiety SOB (shortness of breath) on exertion Chronic obstructive pulmonary disease OXYGEN 3-4 L/MIN CONTINUOUSLY CAD (coronary artery disease) F/U DR Angélica LEONARDO Hyperlipidemia Hypertension Surgical History Hx of esophagogastroduodenoscopy "EGD 12/04/11 Dr. Woods- large hiatal hernia. stomach and small intestine were normal. esophagus dilated, small tear in the UES" History of left heart catheterization H/O colonoscopy "Colonoscopy 09/06/13 Dr. Woods- sigmoid diverticulosis, internal hemorrhoids, no polyps" On 12/02/14 16:04 Jaye Nye wrote "2012-adenomatous polyp" Status post insertion of iliac artery stent "Right common iliac artery stent and right external iliac artery angioplasty on 06/22/14, Dr. Rodriguez, [facility] [place]" History of hemorrhoidectomy History of knee surgery S/p bilateral carotid endarterectomy H/O vascular surgery RIGHT ILIAC ARTERY STENT PLACEMENT H/O knee surgery History of appendectomy History of esophagogastroduodenoscopy (EGD) History of colonoscopy History of cataract surgery R/L H/O hemorrhoidectomy H/O carotid endarterectomy R/L History of cardiac cath NO STENTS Family History Other No family history of adverse response to anesthesia Social History Smoking Status: Former smoker Age Started Using Tobacco: 20; packs per day: 2; Cigarettes Per Day: 5-10 CIG a day ADVISED; Do You Dip or Chew Tobacco: No; Hx Alcohol Use: No Hx Substance Use: No Preferred Language: [place] Communication Ability: Effective Communication Ability Comment: confused [employer] Supervisor Required: No Beliefs That Will Affect Care: None marital status: / Current Living Situation: Half-Way Current Living Situation Comment: [facility] How many Children do You have: 1 Feels Safe at Home: Yes Assistive Devices: Walker and Wheelchair Physical Exam Vital Signs Vital Signs - 24 hr 03/11/24 16:40 03/11/24 16:46 03/11/24 19:29 Temperature 36.7 C Temperature Source Oral Pulse Rate 87 86 Pulse Rate [Apical] 91 H Pulse Rhythm Regular Pulse Strength Normal Respiratory Rate 23 18 Blood Pressure 125/72 Blood Pressure [Left Arm] 121/45 L Blood Pressure Mean 89 Blood Pressure Mean [Left Arm] 70 Blood Pressure Position Sitting Blood Pressure Position [Left Arm] Left Lateral Pulse Oximetry 91 95 Oxygen Delivery Method Nasal Cannula Nasal Cannula Oxygen Flow Rate 4 4 Sepsis Recent Fever Within 48 Hours No Sepsis New/Unexplained Change in Mental Status N/A Sepsis Action Taken by Nursing No Action Required 03/11/24 20:36 Temperature Temperature Source Pulse Rate 94 H Pulse Rate [Apical] Pulse Rhythm Pulse Strength Respiratory Rate Blood Pressure Blood Pressure [Left Arm] Blood Pressure Mean Blood Pressure Mean [Left Arm] Blood Pressure Position Blood Pressure Position [Left Arm] Pulse Oximetry Oxygen Delivery Method Oxygen Flow Rate Sepsis Recent Fever Within 48 Hours Sepsis New/Unexplained Change in Mental Status Sepsis Action Taken by Nursing VITALS: Vitals are noted on the nurse's note and reviewed by myself. Vital signs stable. GENERAL: 78-year-old female, in no acute distress, nondiaphoretic, well- developed well-nourished. SKIN: Ecchymosis to the left forearm, ecchymosis lower abdomen over the pubic region. HEAD: Normocephalic atraumatic. EYES: Pupils equal round and reactive to light and accommodation. Conjunctivae without injection, sclerae without icterus. Extraocular movements intact. MOUTH: Mucous membranes moist. Pharynx without erythema or exudate. Uvula midline. Airway patent. Tongue does not deviate. NECK: Supple without nuchal rigidity. No lymphadenopathy. No thyromegaly. Cervical spine is nontender. No JVD. HEART: Regular rate and rhythm without murmurs gallops or rubs. LUNGS: Clear to auscultation bilaterally without wheezes, rales or rhonchi. No retractions or accessory muscle use. ABDOMEN: Positive bowel sounds x 4. Soft, slight tenderness to palpation low mid abdomen, no guarding, no rebound tenderness. MUSCULOSKELETAL: Tenderness to palpation right lateral hip, limited ROM due to pain, internal rotation, and shortening present, distal pulses intact. NEURO: Patient was alert and oriented to person place and time. No focal neurological deficits. Course Administered Medications Acetaminophen (Acetaminophen 500 Mg Tab) 1,000 mg PO Q8H PRN PRN Reason: Pain or Fever Stop: 04/12/24 09:42 Last Admin: 03/13/24 15:17 Dose: 1,000 mg Documented By: Albuterol (Albuterol 0.083% Nebu Soln 3 Ml Vial) 2.5 mg NEB Q2H PRN; Protocol PRN Reason: Shortness Of Breath Or Wheezin Stop: 04/10/24 22:08 Last Admin: 03/12/24 23:40 Dose: 2.5 mg Documented By: LORENA Albuterol (Albut/Ipratrop 3mg/0.5mg Neb 3 Ml Vial) 3 ml INH QIDR SMITHA; Protocol Stop: 04/10/24 22:08 Last Admin: 03/13/24 14:53 Dose: 3 ml Documented By: Admin: 03/13/24 11:05 Dose: 3 ml Documented By: [id number] Admin: 03/13/24 07:13 Dose: Not Given Documented By: [id number] Admin: 03/12/24 19:46 Dose: Not Given Documented By: Admin: 03/12/24 14:27 Dose: 3 ml Documented By: Admin: 03/12/24 10:59 Dose: Not Given Documented By: Admin: 03/12/24 07:33 Dose: Not Given Documented By: Admin: 03/11/24 22:57 Dose: Not Given Documented By: LORENA Budesonide (Budesonide 0.5 Mg/2 Ml Vial (Pulmicort)) 0.5 mg INH BIDR [facility] Stop: 04/10/24 22:08 Last Admin: 03/13/24 07:13 Dose: 0.5 mg Documented By: [id number] Admin: 03/12/24 19:46 Dose: 0.5 mg Documented By: Admin: 03/12/24 07:33 Dose: 0.5 mg Documented By: Admin: 03/11/24 22:57 Dose: 0.5 mg Documented By: LORENA Clonazepam (Clonazepam 0.5 Mg Tab) 0.5 mg PO AMHS [facility] Stop: 04/10/24 22:08 Last Admin: 03/13/24 09:17 Dose: 0.5 mg Documented By: Admin: 03/13/24 01:05 Dose: Not Given Documented By: Admin: 03/12/24 11:49 Dose: Not Given Documented By: Admin: 03/11/24 23:52 Dose: 0.5 mg Documented By: JEAN-PAUL Diltiazem HCl (Diltiazem Hcl 60 Mg Tab) 60 mg PO QAM [facility] Stop: 04/11/24 08:59 Last Admin: 03/13/24 09:18 Dose: 60 mg Documented By: Admin: 03/12/24 11:49 Dose: Not Given Documented By: SHERI Fentanyl (Fentanyl 12 Mcg/Hr Tdsy) 1 patch TD Q72H [facility] Stop: 03/25/24 21:59 Last Admin: 03/11/24 23:41 Dose: 1 patch Documented By: JEAN-PAUL Fluticasone Propionate (Fluticasone Propionate Na Spr 16 Gm Btl) 2 sprays NA QAM [facility] Stop: 04/11/24 08:59 Last Admin: 03/13/24 09:18 Dose: 2 sprays Documented By: Admin: 03/12/24 11:49 Dose: Not Given Documented By: SHERI Formoterol Fumarate (Formoterol 20 Mcg/2 Ml Vial) 20 mcg INH BIDR [facility] Stop: 04/10/24 22:08 Last Admin: 03/13/24 07:13 Dose: 20 mcg Documented By: [id number] Admin: 03/12/24 19:46 Dose: 20 mcg Documented By: Admin: 03/12/24 07:33 Dose: 20 mcg Documented By: Admin: 03/11/24 22:56 Dose: 20 mcg Documented By: LORENA Piperacillin Sod/Tazobactam (Sod 4.5 gm/ Dextrose) 100 mls @ 25 mls/hr IV Q8H SMITHA; Protocol Stop: 03/20/24 07:59 Last Infusion: 03/13/24 13:24 Dose: Infused Documented By: Admin: 03/13/24 08:59 Dose: 25 mls/hr Documented By: Azithromycin 500 mg/ Dextrose 255 mls @ 127.5 mls/hr IV NOW STA Stop: 03/13/24 15:59 Last Admin: 03/13/24 14:40 Dose: 127.5 mls/hr Documented By: Methenamine Hippurate (Methenamine Hippurate 1 Gm Tab) 1 gm PO BID SMITHA Stop: 03/21/24 22:08 Last Admin: 03/13/24 09:20 Dose: 1 gm Documented By: Admin: 03/13/24 01:05 Dose: Not Given Documented By: Admin: 03/12/24 11:50 Dose: Not Given Documented By: Admin: 03/11/24 23:42 Dose: 1 gm Documented By: JEAN-PAUL Rodas (Fentanyl Patch Remove & Waste) 1 each N/A Q72H SMITHA Stop: 04/10/24 21:58 Last Admin: 03/11/24 23:29 Dose: 1 each Documented By: JEAN-PAUL Co-signed By: TIM Rodas (Check Fentanyl Patch Placement) 1 each N/A QS SMITHA Stop: 04/11/24 00:00 Last Admin: 03/13/24 15:18 Dose: 1 each Documented By: Admin: 03/13/24 08:00 Dose: 1 each Documented By: Admin: 03/13/24 01:06 Dose: 1 each Documented By: Admin: 03/12/24 15:36 Dose: 1 each Documented By: Admin: 03/12/24 08:09 Dose: 1 each Documented By: Admin: 03/12/24 00:25 Dose: 1 each Documented By: JEAN-PAUL Morphine Sulfate (Morphine Sulfate 4 Mg/Ml 1 Ml Carp\\Vial) 4 mg IV Q4H PRN PRN Reason: Pain (5-10) Stop: 03/25/24 22:08 Last Admin: 03/13/24 07:41 Dose: 4 mg Documented By: Admin: 03/12/24 12:53 Dose: 4 mg Documented By: Admin: 03/12/24 03:59 Dose: 4 mg Documented By: JEAN-PAUL Prednisone (Prednisone 10 Mg Tablet) 10 mg PO QAM [facility] Stop: 04/11/24 08:59 Last Admin: 03/13/24 09:19 Dose: 10 mg Documented By: Admin: 03/12/24 11:50 Dose: Not Given Documented By: SHERI Discontinued Medications Acetaminophen (Acetaminophen 325 Mg Tab) 650 mg PO Q4H PRN PRN Reason: pain/fever Stop: 04/10/24 22:08 Last Admin: 03/11/24 23:56 Dose: 650 mg Documented By: JEAN-PAUL Bupivacaine HCl/Epinephrine Bitart (Bupivacaine/Epinephrine 0.5% Mpf 1:200,000 30 Ml Vial) Confirm Administered Dose 30 ml .ROUTE .STK-MED ONE Stop: 03/12/24 08:32 Last Admin: 03/12/24 09:46 Dose: 30 ml Documented By: LUCINDA Cefdinir (Cefdinir 300 Mg Cap) 300 mg PO BID [facility]; Protocol Stop: 03/21/24 22:08 Last Admin: 03/12/24 11:50 Dose: Not Given Documented By: Admin: 03/11/24 23:42 Dose: 300 mg Documented By: JEAN-PAUL Fentanyl Citrate (Fentanyl Citrate Pf 100 Mcg/2 Ml Vial) 25 mcg IV Q5M PRN PRN Reason: PACU Use Only-Pain Stop: 03/12/24 18:37 Last Admin: 03/12/24 10:45 Dose: 25 mcg Documented By: Admin: 03/12/24 10:40 Dose: 25 mcg Documented By: MARC Furosemide (Furosemide Inj 20 Mg/2 Ml Vial) 20 mg IV ONE ONE Stop: 03/13/24 01:20 Last Admin: 03/13/24 06:39 Dose: 20 mg Documented By: BENITO Furosemide (Furosemide Inj 20 Mg/2 Ml Vial) Confirm Administered Dose 20 mg IV .STK-MED ONE Stop: 03/13/24 06:39 Last Admin: 03/13/24 07:12 Dose: Not Given Documented By: Sodium Chloride (Nss) 1,000 mls @ 125 mls/hr IV .Q8H SMITHA Stop: 04/10/24 18:29 Last Infusion: 03/11/24 22:05 Dose: Infused Documented By: JEAN-PAUL Admin: 03/11/24 18:39 Dose: 125 mls/hr Documented By: ENEIDA Lactated Ringer's (Lr) 1,000 mls @ 80 mls/hr IV .[id number] SMITHA Stop: 04/10/24 21:29 Last Admin: 03/13/24 01:55 Dose: Not Given Documented By: Infusion: 03/12/24 21:37 Dose: Infused Documented By: Admin: 03/12/24 12:11 Dose: 80 mls/hr Documented By: Infusion: 03/12/24 12:11 Dose: Infused Documented By: Admin: 03/11/24 23:42 Dose: 80 mls/hr Documented By: JEAN-PAUL Cefazolin Sodium (Ancef 2000mg) 2,000 mg in 15 mls @ 3.75 mls/min IV ONCE ONE; Protocol Stop: 03/12/24 09:08 Last Admin: 03/12/24 09:05 Dose: 3.75 mls/min Documented By: LAURA Cefazolin Sodium (Ancef 1000mg) 1,000 mg in 7.5 mls @ 2.5 mls/min IV Q8H [facility]; Protocol Stop: 03/13/24 00:17 Last Admin: 03/13/24 01:56 Dose: 2.5 mls/min Documented By: Admin: 03/12/24 15:36 Dose: 2.5 mls/min Documented By: SHERI Sodium Chloride (Nss) 1,000 mls @ 80 mls/hr IV .[id number] SMITHA Stop: 03/13/24 12:32 Last Admin: 03/12/24 12:09 Dose: Not Given Documented By: SHERI Lactated Ringer's (Lr) 1,000 mls @ 999 mls/hr IV .Q1H1M ONE Stop: 03/12/24 22:29 Last Infusion: 03/13/24 01:05 Dose: Infused Documented By: Admin: 03/12/24 21:36 Dose: 999 mls/hr Documented By: IAN Albumin Human (Albumin 25%) 25 gm in 100 mls @ 50 mls/hr IV ONE ONE Stop: 03/13/24 00:24 Last Infusion: 03/13/24 01:54 Dose: Infused Documented By: Admin: 03/12/24 23:24 Dose: 50 mls/hr Documented By: BENITO Acetaminophen (Ofirmev) 1,000 mg in 100 mls @ 400 mls/hr IV Q8H PRN PRN Reason: Pain Stop: 03/15/24 23:30 Last Infusion: 03/13/24 01:06 Dose: Infused Documented By: Admin: 03/13/24 00:36 Dose: 400 mls/hr Documented By: BENITO Albumin Human (Albumin 25%) 25 gm in 100 mls @ 50 mls/hr IV ONE ONE Stop: 03/13/24 02:59 Last Infusion: 03/13/24 03:42 Dose: Infused Documented By: Admin: 03/13/24 01:36 Dose: 50 mls/hr Documented By: BENITO Piperacillin Sod/Tazobactam (Sod 4.5 gm/ Dextrose) 100 mls @ 200 mls/hr IV ONE ONE; Protocol Stop: 03/13/24 01:44 Last Infusion: 03/13/24 02:43 Dose: Infused Documented By: Admin: 03/13/24 02:03 Dose: 200 mls/hr Documented By: BENITO Potassium Chloride (K Tato / Wtr) 10 meq in 100 mls @ 100 mls/hr IV Q1H SMITHA Stop: 03/13/24 07:14 Last Infusion: 03/13/24 10:06 Dose: Infused Documented By: Admin: 03/13/24 09:03 Dose: 100 mls/hr Documented By: Infusion: 03/13/24 08:57 Dose: Infused Documented By: Admin: 03/13/24 06:52 Dose: 80 mls/hr Documented By: BENITO Magnesium Sulfate/Dextrose (Magnesium Sulfate / D5w) 1 gm in 100 mls @ 50 mls/hr IV Q2H SMITHA Stop: 03/13/24 12:14 Last Infusion: 03/13/24 13:25 Dose: Infused Documented By: Admin: 03/13/24 11:11 Dose: 50 mls/hr Documented By: Infusion: 03/13/24 11:11 Dose: Infused Documented By: Admin: 03/13/24 09:32 Dose: 50 mls/hr Documented By: Ioversol (Optiray 320 100ml) 85 ml IV ONCE ONE Stop: 03/11/24 19:53 Last Admin: 03/11/24 19:52 Dose: 85 ml Documented By: KELLY Ioversol (Optiray 320 125ml) 125 ml IV ONCE ONE Stop: 03/13/24 00:06 Last Admin: 03/13/24 00:05 Dose: 116 ml Documented By: SILVA Morphine Sulfate (Morphine Sulfate 4 Mg/Ml 1 Ml Carp\\Vial) 4 mg IV NOW STA Stop: 03/11/24 18:30 Last Admin: 03/11/24 18:39 Dose: 4 mg Documented By: ENEIDA Morphine Sulfate (Morphine Sulfate 4 Mg/Ml 1 Ml Carp\\Vial) 4 mg IV NOW STA Stop: 03/11/24 19:15 Last Admin: 03/11/24 19:33 Dose: 4 mg Documented By: ENEIDA Morphine Sulfate (Morphine Sulfate 2 Mg/Ml Carp) 2 mg IV Q2H PRN PRN Reason: Pain (Breakthrough) Stop: 03/25/24 22:08 Last Admin: 03/11/24 22:22 Dose: 2 mg Documented By: JEAN-PAUL Ondansetron HCl (Ondansetron Inj 2 Mg/Ml 2 Ml Vial) 4 mg IV NOW STA Stop: 03/11/24 18:30 Last Admin: 03/11/24 18:39 Dose: 4 mg Documented By: ENEIDA Medical Decision Making Differential Diagnosis Fracture, subluxation, dislocation, contusion, ligamentous injury, neurovascular, compartment syndrome, as well as other pathologies. Medical Records Attestation: I reviewed the patient's medical records. Home Medications Current Medication List: was personally reviewed by me Laboratory Data Attestation: I reviewed the patient's lab results. No leukocytosis, hemoglobin 10.6, hematocrit 34.5, no electrolyte abnormalities, urinalysis negative for infection. Troponin negative. 03/13/24 07:28 03/13/24 05:39 Lab Results 03/11/24 03/11/2424 Range/Units 16:48 19:16 20:43 WBC 5.99 (4.8-10.8) K/ul RBC 3.64 L (4.20-5.40) M/uL Hgb 10.6 L (12.0-16.0) g/dl Hct 34.5 L (37.0-47.0) % MCV 94.8 (80.0-100.0) fL MCH 29.1 (25.0-34.0) pg MCHC 30.7 L (32.0-36.0) g/dL RDW Std Deviation 44.1 (36.4-46.3) fL RDW Coeff of Renetta 12.8 (11.5-14.5) % Plt Count 260 (130-400) K/uL MPV 10.1 (9.4-12.4) fL Immature Gran % (Auto) 0.5 % Neut % (Auto) 85.3 % Lymph % (Auto) 7.2 % Cassia % (Auto) 6.0 % Eos % (Auto) 0.3 % Baso % (Auto) 0.7 % Neut # (Auto) 5.11 (1.40-6.50) K/uL Lymph # (Auto) 0.43 L (1.20-3.40) K/uL Cassia # (Auto) 0.36 (0.11-0.59) K/uL Eos # (Auto) 0.02 (0.00-0.50) K/uL Baso # (Auto) 0.04 (0.00-0.20) K/uL Immature Gran # (Auto) 0.03 (0.01-0.20) K/uL Sodium 140 (136-145) mmol/L Potassium 3.7 (3.5-5.1) mmol/L Chloride 98 (98-107) mmol/L Carbon Dioxide 31 (21-32) mmol/L Anion Gap 11 (3-11) BUN 9 (6-23) mg/dl Creatinine 0.81 (0.6-1.2) mg/dl Est Cr Clr Drug Dosing 54.9 ml/min Est GFR ( Amer) 80.1 ml/min Est GFR (Non-Af Amer) 69.1 ml/min BUN/Creatinine Ratio 11.1 (10-20) Glucose 133 H (70-99(Fasting)) mg/dl Calcium 8.9 (8.6-10.3) mg/dl Total Bilirubin 0.3 (0.2-1.0) mg/dl AST 22 (13-39) U/L ALT 15 (7-52) U/L Alkaline Phosphatase 65 (34-104) U/L Troponin I High Sens 12.4 (0-14) pg/ml Total Protein 5.7 L (6.0-8.3) gm/dl Albumin 3.6 (3.4-5.0) gm/dl Globulin 2.1 L (2.5-4.0) gm/dl Albumin/Globulin Ratio 1.7 (0.9-2) Urine Color Yellow Urine Appearance Clear (Clear) Urine pH 6.5 (4.5-7.5) Ur Specific [place] 1.021 (1.000-1.030) Urine Protein Trace H (Negative) Urine Glucose (UA) Negative (Negative) Urine Ketones Negative (Negative) Urine Blood Negative (Negative) Urine Nitrite Negative (Negative) Urine Bilirubin Negative (Negative) Urine Urobilinogen Negative (Negative) Ur Leukocyte Esterase Negative (Negative) Urine WBC (Auto) 0-5 (0-5) /hpf Urine RBC (Auto) 0-2 (0-2) /hpf U Hyaline Cast (Auto) 0-2 (0-2) /lpf U Epithel Cells (Auto) 0-2 (0-2) /hpf Urine Bacteria (Auto) None Seen (None Seen) Blood Type O Positive Antibody Screen NEGATIVE Crossmatch See Detail Imaging Data Attestation: I personally reviewed and interpreted this imaging study as follows: My Impression: Initial x-ray interpretation per myself shows negative right shoulder, impacted right femoral fracture. Will await formal radiology report. Radiologist's Impression: Cervical Spine CT 03/11/24 17:02 Exam(s): CT C SPINE EXAM: CT Cervical Spine Without Intravenous Contrast CLINICAL HISTORY: Reason for exam: fall. TECHNIQUE: Axial computed tomography images of the cervical spine without intravenous contrast. Automated exposure control was utilized for the study. A dose lowering technique was utilized adhering to the principles of ALARA. COMPARISON: No relevant prior studies available. FINDINGS: The vertebral body heights are maintained. The craniocervical junction is intact. The atlanto-dens interval is maintained. The dens is intact. There is no spondylolisthesis. Multilevel cervical spondylosis and degenerative disc disease. Straightening of the cervical lordosis. The unenhanced neck soft tissues are grossly unremarkable. The visualized lung apices are grossly clear. IMPRESSION: No acute fracture or subluxation of the cervical spine. Electronically signed by: Sang Avalos MD 03/11/24 21:[address] 03/11/24 17:02 Exam(s): CT HEAD Without Contrast EXAM: CT Head Without Intravenous Contrast CLINICAL HISTORY: Reason for exam: fall. TECHNIQUE: Axial computed tomography images of the head/brain without intravenous contrast. Automated exposure control was utilized for the study. A dose lowering technique was utilized adhering to the principles of ALARA. COMPARISON: Head CT March 08, 2024. FINDINGS: No acute intracranial hemorrhage. No midline shift or mass effect. The territorial carney-white matter differentiation is maintained throughout. Age-related cerebral volume loss. Periventricular and subcortical white matter hypoattenuation, consistent with chronic microangiopathy. The visualized orbits appear grossly unremarkable. The calvarium is intact. The visualized paranasal sinuses and mastoid air cells are grossly clear. IMPRESSION: No acute intracranial hemorrhage, midline shift, or mass effect. Electronically signed by: Sang Avalos MD 03/11/24 21:06 PM Hip/Pelvis X-Ray 03/11/24 17:02 XR hip RT 2V w pelvis HISTORY: 78 years-old Female fall acute pain of the pelvis and right hip status post fall COMPARISON: 12/04/2014 TECHNIQUE: AP view of the pelvis with 2 views of the right hip FINDINGS: There is an acute and impacted transcervical/basicervical right femoral fracture without significant displacement. Mild associated soft tissue swelling. Hepc-no-ohdrligs osteoarthritis of the hips. IMPRESSION: Acute impacted right transcervical/basicervical femoral fracture without significant displacement. ACT 112: Negative or not required by law. The above report was generated using voice recognition software. It may contain grammatical, syntax or spelling errors. Electronically signed by: Lonnie Oshea M.D. 03/11/2024 6:10 PM Shoulder X-Ray 03/11/24 17:02 XR shoulder RT min 2V routine HISTORY: 78 years-old Female fall acute right shoulder pain status post fall COMPARISON: Chest radiograph 02/13/2024 TECHNIQUE: 2 views of the right shoulder FINDINGS: Arterial calcifications. Moderate glenohumeral and AC joint osteoarthritis. No acute fracture or dislocation identified. IMPRESSION: No acute fracture or dislocation. ACT 112: Negative or not required by law. The above report was generated using voice recognition software. It may contain grammatical, syntax or spelling errors. Electronically signed by: Lonnie Oshea M.D. 03/11/2024 6:09 PM Abdomen/Pelvis CT 03/11/24 19:04 Exam(s): CT ABDOMEN + PELVIS With Contrast IV Amt: 85 ml optiray 320 EXAM: CT Abdomen and Pelvis With Intravenous Contrast CLINICAL HISTORY: Reason for exam: fall. TECHNIQUE: Axial computed tomography images of the abdomen and pelvis with intravenous contrast. Automated exposure control was utilized for the study. A dose lowering technique was utilized adhering to the principles of ALARA. CONTRAST: Patient received 85 ml optiray 320 of IV contrast COMPARISON: No relevant prior studies available. FINDINGS: Lung bases: Unremarkable. No mass. No consolidation. ABDOMEN: Liver: Unremarkable. No mass. Gallbladder and bile ducts: Unremarkable. No calcified stones. No ductal dilation. Pancreas: Unremarkable. No mass. No ductal dilation. Spleen: Unremarkable. No splenomegaly. Adrenals: Unremarkable. No mass. Kidneys and ureters: No hydronephrosis or delayed nephrogram. RIGHT lower pole renal cyst measures 2.3 cm. Stomach and bowel: Unremarkable. No obstruction. No mucosal thickening. PELVIS: Appendix: No findings to suggest acute appendicitis. Bladder: Hernandez catheter terminates in the urinary bladder. Reproductive: Unremarkable as visualized. ABDOMEN and PELVIS: Intraperitoneal space: Unremarkable. No free air. No significant fluid collection. Bones/joints: Nondisplaced RIGHT intertrochanteric hip fracture. Degenerative changes of the spine. No dislocation. Soft tissues: Unremarkable. Vasculature: Atherosclerotic changes of the aorta. No abdominal aortic aneurysm. Lymph nodes: Unremarkable. No enlarged lymph nodes. IMPRESSION: Nondisplaced RIGHT intertrochanteric hip fracture. Electronically signed by: Sang Avalos MD 03/11/24 21:01 PM ECG Data Attestation: I personally reviewed and interpreted this ECG as follows: Indication: + other (fall) Rate (beats per minute): 83 Rhythm: + sinus with SA Comparison ECG Date: from (02/15) Change: the following changes noted (non-specific t wave abnormality has replaced inverted t waves in anterior leads) Blood Pressure Blood Pressure Findings: Normal blood pressure Head Trauma GCS Score: 15 MDM Narrative The patient is a 78-year-old female who arrives to the emergency department for the above-stated complaint. Upon examination the patient has significant tenderness to palpation of the right lateral hip, and the right shoulder. She has ecchymosis to the left forearm, as well as across the low abdomen above the pubic region. The patient was not completely aware of the cause of the fall, therefore was unable to determine if head strike occurred. A saline lock was placed, CBC, CMP, troponin were obtained. CBC shows a drop in hemoglobin from 11.6 to 10.6 from her labs this morning. CMP, troponin were reassuring. EKG shows normal sinus rhythm with sinus arrhythmia, at a rate of 83, no ectopy, ST elevation, or ST depression. CT of the head and neck were obtained, which showed no acute ICH, subluxation, or injury. X-ray of the right shoulder and the right hip with pelvis per my initial interpretation shows no acute fracture of the right shoulder, however there is an impacted fracture of the right femur. CT imaging of the abdomen and pelvis were obtained which showed no acute intra- abdominal process. I contacted Dr. Martínez from orthopedic surgery, he was able to evaluate the patient and upon medical clearance will perform surgical repair tomorrow morning. Case management was contacted for facilitation of admission. [facility]. Please refer to Dr. Florian's documentation for further patient care. Continuous campus monitor: Order was placed for continuous campus monitor. Patient was placed on the campus monitor. Patient was noted to be in normal sinus at an initial rate of 76 bpm. The patient's case was discussed with Dr. Weems, who agreed with my evaluation and treatment plan. Impression & Plan Right femoral fracture Discharge Plan Visit Data Chief Complaint: Hip Pain ED Provider: Jean Weems ED Midlevel Provider: Kiara Garcia Discharge Problem: Right femoral fracture Patient Disposition: Admitted As Inpatient Discharge Instructions Interventions: ED Discharge Assessment Last Done: 03/11/24 22:00 Addendum March 13, 2024 15:24 I was consulted by the Advanced Practice Provider and was substantively involved in the patient's visit.This includes aspects of the HPI, MDM, diagnostic interpretations, and disposition/plan. I discussed the case with the JUAN and agree with the findings and plan as documented in JUAN Pierolon's note.
[2024-03-11 17:41] LABS: Troponin I High Sensitivity 12.4 pg/ml (0-14)
--- NOTE | 2024-03-11 18:11 | XRay Report ---
XR shoulder RT min 2V routine HISTORY: 78 years-old Female fall acute right shoulder pain status post fall COMPARISON: Chest radiograph 02/13/2024 TECHNIQUE: 2 views of the right shoulder FINDINGS: Arterial calcifications. Moderate glenohumeral and AC joint osteoarthritis. No acute fracture or disl ocation identified. IMPRESSION: No acute fracture or dislocation. ACT 112: Negative or not required by law. The above report was generated using voice recognition software. It may contain grammatical, syntax o r spelling errors. Electronically signed by: Lonnie Oshea M.D. 03/11/2024 6:09 PM
--- NOTE | 2024-03-11 18:11 | XRay Report ---
XR hip RT 2V w pelvis HISTORY: 78 years-old Female fall acute pain of the pelvis and right hip status post fall COMPARISON: 12/04/2014 TECHNIQUE: AP view of the pelvis with 2 views of the right hip FINDINGS: There is an acute and impacted transcervical/basicervical right femoral fracture without significant displacement. Mild associated soft tissue swelling. Xfaq-vh-coivrqfm osteoarthritis of the hips. IMPRESSION: Acute impacted right transcervical/basicervical femoral fracture without significant disp lacement. ACT 112: Negative or not required by law. The above report was generated using voice recognition software. It may contain grammatical, syntax o r spelling errors. Electronically signed by: Lonnie Oshea M.D. 03/11/2024 6:10 PM
[2024-03-11] MEDS: ONDANSETRON INJ 2 MG/ML 2 ML VIAL IV STA (18:39)
[2024-03-11] MEDS: MoRPHine SULFATE 4 MG/ML 1 ML CARP\\VIAL IV STA ×2 (18:39→19:33)
[2024-03-11] MEDS: SODIUM CHLORIDE 0.9% 1,000 ML IV SCH (18:39)
[2024-03-11 19:40] LABS: Basophils # (auto) 0.04 K/uL (0.00-0.20); Basophils % (auto) 0.7 %; Eosinophils # (auto) 0.02 K/uL (0.00-0.50); Eosinophils % (auto) 0.3 %; Hematocrit (blood only) 34.5 % (37.0-47.0); Hemoglobin 10.6 g/dl (12.0-16.0); Immature Granulocytes # (auto) 0.03 K/uL (0.01-0.20); Immature Granulocytes % (auto) 0.5 %; Lymphocytes # (auto) 0.43 K/uL (1.20-3.40); Lymphocytes % (auto) 7.2 %; Mean Corpuscular Hemoglobin 29.1 pg (25.0-34.0); Mean Corpuscular Hgb Conc 30.7 g/dL (32.0-36.0); Mean Corpuscular Volume 94.8 fL (80.0-100.0); Mean Platelet Volume 10.1 fL (9.4-12.4); Monocytes # (auto) 0.36 K/uL (0.11-0.59); Neutrophils # (auto) 5.11 K/uL (1.40-6.50); Neutrophils % (auto) 85.3 %; Platelet Count 260 K/uL (130-400); RDW Coefficient of Variation 12.8 % (11.5-14.5); RDW Standard Deviation 44.1 fL (36.4-46.3); Red Blood Count 3.64 M/uL (4.20-5.40); White Blood Count 5.99 K/ul (4.8-10.8)
[2024-03-11 19:45] LABS: Albumin Globulin Ratio 1.7 (0.9-2); Albumin Level 3.6 gm/dl (3.4-5.0); BUN Creatinine Ratio 11.1 (10-20); Bilirubin,Total 0.3 mg/dl (0.2-1.0); Calcium 8.9 mg/dl (8.6-10.3); Creatinine Clr Calc Pharmacy 54.9 ml/min; Est GFR (African American) 80.1 ml/min; Est GFR (Non-African American) 69.1 ml/min; Globulin 2.1 gm/dl (2.5-4.0); Potassium 3.7 mmol/L (3.5-5.1); Total Protein 5.7 gm/dl (6.0-8.3)
[2024-03-11] MEDS: OPTIRAY 320 100ml IV ONE (19:52)
[2024-03-11 19:53] LABS: Appearance Urine Clear (Clear); Bacteria Urine Automated None Seen (None Seen); Bilirubin Urine Negative (Negative); Blood Urine Negative (Negative); Cast Urine Automated 0-2 /lpf (0-2); Color Urine Yellow; Epithelial Cell Urine Auto 0-2 /hpf (0-2); Glucose Urine UA Negative (Negative); Ketones Urine Negative (Negative); Leukocyte Esterase Urine Negative (Negative); Nitrite Urine Negative (Negative); Protein Urine Trace (Negative); RBC Urine Automated 0-2 /hpf (0-2); Specific Gravity Urine 1.021 (1.000-1.030); Urobilinogen Urine Negative (Negative); WBC Urine Automated 0-5 /hpf (0-5); pH Urine 6.5 (4.5-7.5)
--- NOTE | 2024-03-11 20:36 | History & Physical Report ---
Date of Service March 11, 2024 Assessment & Plan (1) Right femoral fracture: Plan Fall from Bed | Acute Hip Fracture - XR Hip indicating acute impacted right transcervical/basicervical femoral fracture without significant displacement. - XR Shoulder unremarkable - CTAP only notable for nondisplaced RIGHT intertrochanteric hip fracture, no acute intra-abdominal bleeding. - Pain management: S/p 2 doses Morphine 4 mg in ED Continue home Tylenol Continue home Oxycodone 5 mg PO BID PRN Continue home Fentanyl patch Ordered Morphine 4 mg Q6h PRN for Breakthrough Pain 5-10 Narcan available - Ortho consulted Plan for surgical intervention NPO at midnight Non-essential medications held Pyelitis - Recent admission 03/08-03/11 - Continue Antibiotics: Cefdinir BID COPD/ Chronic Hypoxemic, Hypercapnic Respiratory Failure - Severe COPD at baseline, 3L NC at [facility] (No BiPAP) Now requiring 4 L via NC and stable, hypoxic on admission - Continue home inhalers - Continue daily prednisone - Mucinex held pending hip surgery, restart following Anemia | Hemorrhoids | Chronic Hematochezia - Hgb 10-12 on prior admission, but went fro 11.6 to 10.6 today - No evidence of intra-abdominal bleeding on CTAP this admission - Today's drop, potential association w/ acute hip fracture - Monitor CBC while inpatient Still likely to benefit from outpatient colonoscopy Dysphagia/ GERD - Severe esophageal dysmotility on recent barium swallow, EGD deferred - Strict aspiration precautions - PPI, H2 mya, Carafate held pending hip surgery, would restart following Anxiety/ Benzo Use - Ongoing Klonopin BID - Lexapro 5 mg daily held pending hip surgery, would restart following Chronic Back Pain/ Osteoporosis - Fentanyl patch, oxycodone BID prn - Additional pain mgmt as above HTN - Antihypertensives held pending hip surgery, would restart following - BP stable on admission PVD - Antiplatelet held on admission for acute bleeding concern CAD - Held statin on admission pending surgery, ashleigh restart following Diet: NPO at midnight DVT Proph: Anticoagulation and Antiplatelet held given concern for acute bleeding Dispo: Med surg pending hip surgery Code Status: DNR/DNI History of Present Illness Chief Complaint: Hip Fracture Primary Care Provider: Sorgho Panchito Perez is a 78F with PMH of pyelitis (recently admitted 03/08 - 03/11), GERD, anxiety, lumbar radiculopathy/neuroforaminal stenosis, COPD, anemia, HTN, osteoporosis, PVD, HLD, CAD, dysphagia, and bilateral carotid artery stenosis who presented from [facility] via ambulance after a fall from the end of her bed which resulted in a hip fracture. Patient is unable to recall the exact events of her fall, but notes that she fell from bed height to the floor. She notes that she his in significant pain in her left hip, but otherwise provided no meaningful history. Allergies Allergy/AdvReac Type Severity Reaction Status Date / Time metoclopramide Allergy Severe "lungs Verified 03/08/24 16:31 collapsed" cortisone Allergy Intermediate swelling Verified 03/08/24 16:31 salicylates Allergy Intermediate caused Verified 03/08/24 16:31 bleeding, can take EC aspirin Corticosteroids AdvReac Intermediate swelling Verified 03/08/24 16:31 (Glucocorticoids) Home Medications Medication Instructions Recorded Confirmed Type Saccharomyces boulardii 250 mg 250 mg PO BID 03/08/24 03/11/24 History capsule (Florastor) acetaminophen 325 mg tablet 650 mg PO Q6 PRN Fever Or Pain 03/08/24 03/11/24 History (Tylenol) albuterol sulfate 2.5 mg/3 mL 2.5 mg continuous nebulization 03/08/24 03/11/24 History (0.083 %) solution for nebulization .Q2HR PRN Shortness Of Breath Or Wheezing albuterol sulfate 90 mcg/actuation 2 puff inhalation Q12 PRN 03/08/24 03/11/24 History aerosol inhaler Shortness Of Breath arformoterol 15 mcg/2 mL solution 2 ml inhalation BID 03/08/24 03/11/24 History for nebulization (Brovana) ascorbic acid (vitamin C) 1,000 mg 1 g PO QAM 03/08/24 03/11/24 History tablet (Vitamin C) budesonide 0.5 mg/2 mL suspension 0.5 mg inhalation BID 03/08/24 03/11/24 History for nebulization buspirone 7.5 mg tablet 7.5 mg PO BID 03/08/24 03/11/24 History clonazepam 0.5 mg tablet 0.5 mg PO AMHS 03/08/24 03/11/24 History clopidogrel 75 mg tablet (Plavix) 75 mg PO DAILY 03/08/24 03/11/24 History cyanocobalamin (vitamin B-12) 500 500 mcg PO DAILY 03/08/24 03/11/24 History mcg tablet (Vitamin B-12) diclofenac sodium 1 % topical gel 2 g topical QID 03/08/24 03/11/24 History diltiazem HCl 60 mg tablet 60 mg PO QAM 03/08/24 03/11/24 History escitalopram oxalate 5 mg tablet 5 mg PO QAM 03/08/24 03/11/24 History estradiol 0.01% (0.1 mg/gram) 1 appful vaginal .MON, WED, FRI @HS 03/08/24 03/11/24 History vaginal cream eucalyptus-menthol oral mucosal 1 mika mucous membrane .Q2HR PRN 03/08/24 03/11/24 History lozenge Cough famotidine 20 mg tablet 20 mg PO BID 03/08/24 03/11/24 History fentanyl 12 mcg/hr transdermal 12 mcg topical [id number] 03/08/24 03/11/24 History patch fluticasone propionate 50 2 spray intranasal QAM 03/08/24 03/11/24 History mcg/actuation nasal spray,suspension gabapentin 300 mg capsule 300 mg PO TID 03/08/24 03/11/24 History guaifenesin 100 mg/5 mL oral liquid 300 mg PO Q4H PRN Cough 03/08/24 03/11/24 History guaifenesin 600 mg tablet, 600 mg PO Q12 03/08/24 03/11/24 History extended release 12 hr (Mucinex) ipratropium 0.5 mg-albuterol 3 mg 3 ml inhalation QID 03/08/24 03/11/24 History (2.5 mg base)/3 mL nebulization soln loperamide 2 mg tablet (Imodium 2 mg PO .Q2HR PRN Diarrhea 03/08/24 03/11/24 History A-D) loratadine 10 mg tablet 10 mg PO DAILY 03/08/24 03/11/24 History methenamine hippurate 1 gram tablet 1 g PO BID 03/08/24 03/11/24 History nystatin 100,000 unit/mL oral 5 ml PO QID 03/08/24 03/11/24 History suspension ondansetron HCl 4 mg tablet 4 mg PO Q6H PRN Nausea 03/08/24 03/11/24 History oxycodone 5 mg tablet 5 mg PO BID PRN .pain 5-10 03/08/24 03/11/24 History oxymetazoline 0.05 % nasal mist 2 spray intranasal Q12H PRN 03/08/24 03/11/24 History (Afrin (oxymetazoline)) .epistaxis pantoprazole 40 mg tablet,delayed 40 mg PO AMHS 03/08/24 03/11/24 History release phenazopyridine 200 mg tablet 200 mg PO Q8 PRN .bladder spasm 03/08/24 03/11/24 History (Pyridium) prednisone 10 mg tablet 10 mg PO QAM 03/08/24 03/11/24 History rosuvastatin 20 mg tablet 20 mg PO HS 03/08/24 03/11/24 History sodium chloride-aloe vera nasal 1 applic topical TID PRN .. 03/08/24 03/11/24 History gel (Durand Saline nasal gel) sucralfate 100 mg/mL oral 10 ml PO QID 03/08/24 03/11/24 History suspension cefdinir 300 mg capsule 300 mg PO BID 6 days #12 caps 03/11/24 03/11/24 Rx Past Med/Surg History Problem List (Updated 03/13/24 @ 00:07 by Background Daemon) Displaced fracture of right femoral neck Right femoral fracture (Acute) Pyelonephritis (Acute) Pyelitis Hypoxia (Acute) Discharge planning issues DVT prophylaxis GERD (gastroesophageal reflux disease) Anxiety Change in mental status (Acute) Urinary tract infection (Acute) Neuroforaminal stenosis of lumbar spine Hand abrasion Back pain Lumbar radiculopathy Greater trochanteric pain syndrome Leg pain, right COPD (chronic obstructive pulmonary disease) (Acute) Abdominal pain (Acute) Abnormal involuntary movements Hypophosphatemia Acute exacerbation of chronic obstructive pulmonary disease (COPD) Acute exacerbation of COPD with asthma Dysphagia Encounter for pre-operative examination Anemia GI bleed COPD (chronic obstructive pulmonary disease) "on home O2" Osteoporosis HTN (hypertension) Peripheral vascular disease Hyperlipidemia GERD (gastroesophageal reflux disease) Anxiety CAD (coronary artery disease) "Minimal non-obstructive CAD by left heart cath 2007" On 12/02/14 16:15 Jaye Nye wrote "Minimal non-obstructive CAD by left heart catherization 2007" Trigger finger History of appendectomy Arthritis of left knee Dysphagia Intractable nausea and vomiting Leg pain, left Weakness Weakness Dysphagia Asymptomatic bilateral carotid artery stenosis "s/p bilateral carotid endarterectomy" History of esophageal stricture Medical History Acute CVA (cerebrovascular accident) TIA (transient ischemic attack) alf resident resident of [facility] History of GI bleed History of anemia History of esophageal dilatation Diarrhea Difficulty swallowing PVD (peripheral vascular disease) Osteoporosis Arthritis Anxiety SOB (shortness of breath) on exertion Chronic obstructive pulmonary disease OXYGEN 3-4 L/MIN CONTINUOUSLY CAD (coronary artery disease) F/U DR Angélica LEONARDO Hyperlipidemia Hypertension Surgical History Hx of esophagogastroduodenoscopy "EGD 12/04/11 Dr. Woods- large hiatal hernia. stomach and small intestine were normal. esophagus dilated, small tear in the UES" History of left heart catheterization H/O colonoscopy "Colonoscopy 09/06/13 Dr. Woods- sigmoid diverticulosis, internal hemorrhoids, no polyps" On 12/02/14 16:04 Jaye Nye wrote "2012-adenomatous polyp" Status post insertion of iliac artery stent "Right common iliac artery stent and right external iliac artery angioplasty on 06/22/14, Dr. Rodriguez, [facility] [place]" History of hemorrhoidectomy History of knee surgery S/p bilateral carotid endarterectomy H/O vascular surgery RIGHT ILIAC ARTERY STENT PLACEMENT H/O knee surgery History of appendectomy History of esophagogastroduodenoscopy (EGD) History of colonoscopy History of cataract surgery R/L H/O hemorrhoidectomy H/O carotid endarterectomy R/L History of cardiac cath NO STENTS Family History Other No family history of adverse response to anesthesia Social History Smoking Status: Former smoker Age Started Using Tobacco: 19; packs per day: 2; Cigarettes Per Day: 5-10 CIG a day ADVISED; Do You Dip or Chew Tobacco: No; Hx Alcohol Use: No Hx Substance Use: No Preferred Language: Brazilian Communication Ability: Effective Communication Ability Comment: confused 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 Beliefs That Will Affect Care: None marital status: / Current Living Situation: Custodial Current Living Situation Comment: [facility] How many Children do You have: 1 Feels Safe at Home: Yes Assistive Devices: Walker and Wheelchair Physical Exam Physical Exam: Gen: confused, interactive, aware of person and place HEENT: Supple, no LAD, no thyromegaly, no JVDm dry mucous membranes Resp:Non-labored, no wheezing/rhonchi/rales, CTAB CV:RRR, normal S1/S2, no M/R/G Abd: Soft, non-distended, no TTP, normoactive bowels, no masses Extr: - 2+ dp bilaterally at dorsalis pedis an d posterior tibial, no edema, no abnormal rotation of lower extremities - Patient preference for flexion of the right hip, significant pain with any small movement Skin: - Significant acute ecchymosis to lower abdomen, mild ecchymosis to R lateral hip - Bilateral ecchymosis to upper extremit ies in various stages of healing (likely chronic) Results & Data Results & Data Vital Signs (Past 12 Hours) Vital Signs Temp Pulse Pulse Resp BP BP Pulse Ox 03/11/24 19:29 91 H 18 121/45 L 95 03/11/24 16:46 86 03/11/24 16:40 36.7 C 87 23 125/72 91 O2 Del Method O2 Flow Rate 03/11/24 19:29 Nasal Cannula 4 03/11/24 16:46 03/11/24 16:40 Nasal Cannula 4 Supervising Physician Co-Signing Physician Notes Attending addendum: I have physically seen this patient, have supervised the medical residents activities, and agree with the H&P unless as otherwise noted. Assessment and Plan: Closed right hip fracture- Status post mechanical fall N.p.o. except essential medications Continuing regimen of home Tylenol, oxycodone and fentanyl patch Morphine 4 mg IV to 6 hours as needed breakthrough pain Narcan available per protocol Consult orthopedic surgery Pyelitis- Cefdinir twice daily continue Severe COPD/chronic respiratory failure with hypercapnia- Chronically on 3 L nasal cannula, titrate up to 4 L while in the ED Home inhalers and daily prednisone as noted Remaining orders and notations as noted Resident Activity Tracking Resident Involvement: Resident Care Provided Care Provided: Adult Hospital Medicine (Night)
--- NOTE | 2024-03-11 21:02 | CT Scan Report ---
Exam(s): CT ABDOMEN + PELVIS With Contrast IV Amt: 85 ml optiray 320 EXAM: CT Abdomen and Pelvis With Intravenous Contrast CLINICAL HISTORY: Reason for exam: fall. TECHNIQUE: Axial computed tomography images of the abdomen and pelvis with intravenous contrast. Automated exposure control was utilized for the study. A dose lowering technique was utilized adhering to the principles of ALARA. CONTRAST: Patient received 85 ml optiray 320 of IV contrast COMPARISON: No relevant prior studies available. FINDINGS: Lung bases: Unremarkable. No mass. No consolidation. ABDOMEN: Liver: Unremarkable. No mass. Gallbladder and bile ducts: Unremarkable. No calcified stones. No ductal dilation. Pancreas: Unremarkable. No mass. No ductal dilation. Spleen: Unremarkable. No splenomegaly. Adrenals: Unremarkable. No mass. Kidneys and ureters: No hydronephrosis or delayed nephrogram. RIGHT lower pole renal cyst measures 2.3 cm. Stomach and bowel: Unremarkable. No obstruction. No mucosal thickening. PELVIS: Appendix: No findings to suggest acute appendicitis. Bladder: Hernandez catheter terminates in the urinary bladder. Reproductive: Unremarkable as visualized. ABDOMEN and PELVIS: Intraperitoneal space: Unremarkable. No free air. No significant fluid collection. Bones/joints: Nondisplaced RIGHT intertrochanteric hip fracture. Degenerative changes of the spine. No dislocation. Soft tissues: Unremarkable. Vasculature: Atherosclerotic changes of the aorta. No abdominal aortic aneurysm. Lymph nodes: Unremarkable. No enlarged lymph nodes. IMPRESSION: Nondisplaced RIGHT intertrochanteric hip fracture. Electronically signed by: Sang Avalos MD 03/11/24 21:01 PM
--- NOTE | 2024-03-11 21:05 | CT Scan Report ---
Exam(s): CT C SPINE EXAM: CT Cervical Spine Without Intravenous Contrast CLINICAL HISTORY: Reason for exam: fall. TECHNIQUE: Axial computed tomography images of the cervical spine without intravenous contrast. Automated exposure control was utilized for the study. A dose lowering technique was utilized adhering to the principles of ALARA. COMPARISON: No relevant prior studies available. FINDINGS: The vertebral body heights are maintained. The craniocervical junction is intact. The atlanto-dens interval is maintained. The dens is intact. There is no spondylolisthesis. Multilevel cervical spondylosis and degenerative disc disease. Straightening of the cervical lordosis. The unenhanced neck soft tissues are grossly unremarkable. The visualized lung apices are grossly clear. IMPRESSION: No acute fracture or subluxation of the cervical spine. Electronically signed by: Sang Avalos MD 03/11/24 21:05 PM
--- NOTE | 2024-03-11 21:06 | CT Scan Report ---
Exam(s): CT HEAD Without Contrast EXAM: CT Head Without Intravenous Contrast CLINICAL HISTORY: Reason for exam: fall. TECHNIQUE: Axial computed tomography images of the head/brain without intravenous contrast. Automated exposure control was utilized for the study. A dose lowering technique was utilized adhering to the principles of ALARA. COMPARISON: Head CT March 08, 2024. FINDINGS: No acute intracranial hemorrhage. No midline shift or mass effect. The territorial carney-white matter differentiation is maintained throughout. Age-related cerebral volume loss. Periventricular and subcortical white matter hypoattenuation, consistent with chronic microangiopathy. The visualized orbits appear grossly unremarkable. The calvarium is intact. The visualized paranasal sinuses and mastoid air cells are grossly clear. IMPRESSION: No acute intracranial hemorrhage, midline shift, or mass effect. Electronically signed by: Sang Avalos MD 03/11/24 21:06 PM
--- NOTE | 2024-03-11 21:19 | Orthopedic Consultation ---
Date of Service March 11, 2024 Assessment & Plan (1) Displaced fracture of right femoral neck: 78-year-old female with a recent hospital admission due to urinary tract infection status post mechanical fall with a displaced femoral neck fracture. No other obvious injuries. Plan: Patient is can be admitted by the medicine service. She is undergoing medical workup and stabilization. Once she is optimized we will proceed with a likely a right cemented bipolar hip arthroplasty. The risks Mente this procedure planed the patient in depth and include but not limited to DVT PE infection neurological injury vascular bleeding palm pain limb range of motion this is fairly her symptoms incomplete relief of symptoms fracture dislocation excetra. The patient understands and desires to proceed. Informed consent was obtained. History of Present Illness Reason for Consultation: . Right hip fracture. Requesting Physician: . . Patient is a 78-year-old female who was just discharged from the hospital this morning from a hospital admission related to kidney/bladder infection. She was sent back to [facility] where she lives on antibiotics. As she stated to mechanical fall today. She has acute onset of pain and could not ambulate. Denies any history of hip pain in the past. She says that she walked independently. No other complaints. She does have multiple medical comorbidities. She is currently undergoing evaluation medically to be optimized. Allergies Allergy/AdvReac Type Severity Reaction Status Date / Time metoclopramide Allergy Severe "lungs Verified 03/08/24 16:31 collapsed" cortisone Allergy Intermediate swelling Verified 03/08/24 16:31 salicylates Allergy Intermediate caused Verified 03/08/24 16:31 bleeding, can take EC aspirin Corticosteroids AdvReac Intermediate swelling Verified 03/08/24 16:31 (Glucocorticoids) Home Medications Medication Instructions Recorded Confirmed Type Saccharomyces boulardii 250 mg 250 mg PO BID 03/08/24 03/11/24 History capsule (Florastor) acetaminophen 325 mg tablet 650 mg PO Q6 PRN Fever Or Pain 03/08/24 03/11/24 History (Tylenol) albuterol sulfate 2.5 mg/3 mL 2.5 mg continuous nebulization 03/08/24 03/11/24 History (0.083 %) solution for nebulization .Q2HR PRN Shortness Of Breath Or Wheezing albuterol sulfate 90 mcg/actuation 2 puff inhalation Q12 PRN 03/08/24 03/11/24 History aerosol inhaler Shortness Of Breath arformoterol 15 mcg/2 mL solution 2 ml inhalation BID 03/08/24 03/11/24 History for nebulization (Brovana) ascorbic acid (vitamin C) 1,000 mg 1 g PO QAM 03/08/24 03/11/24 History tablet (Vitamin C) budesonide 0.5 mg/2 mL suspension 0.5 mg inhalation BID 03/08/24 03/11/24 History for nebulization buspirone 7.5 mg tablet 7.5 mg PO BID 03/08/24 03/11/24 History clonazepam 0.5 mg tablet 0.5 mg PO AMHS 03/08/24 03/11/24 History clopidogrel 75 mg tablet (Plavix) 75 mg PO DAILY 03/08/24 03/11/24 History cyanocobalamin (vitamin B-12) 500 500 mcg PO DAILY 03/08/24 03/11/24 History mcg tablet (Vitamin B-12) diclofenac sodium 1 % topical gel 2 g topical QID 03/08/24 03/11/24 History diltiazem HCl 60 mg tablet 60 mg PO QAM 03/08/24 03/11/24 History escitalopram oxalate 5 mg tablet 5 mg PO QAM 03/08/24 03/11/24 History estradiol 0.01% (0.1 mg/gram) 1 appful vaginal .MON, WED, FRI @HS 03/08/24 03/11/24 History vaginal cream eucalyptus-menthol oral mucosal 1 mika mucous membrane .Q2HR PRN 03/08/24 03/11/24 History lozenge Cough famotidine 20 mg tablet 20 mg PO BID 03/08/24 03/11/24 History fentanyl 12 mcg/hr transdermal 12 mcg topical [id number] 03/08/24 03/11/24 History patch fluticasone propionate 50 2 spray intranasal QAM 03/08/24 03/11/24 History mcg/actuation nasal spray,suspension gabapentin 300 mg capsule 300 mg PO TID 03/08/24 03/11/24 History guaifenesin 100 mg/5 mL oral liquid 300 mg PO Q4H PRN Cough 03/08/24 03/11/24 History guaifenesin 600 mg tablet, 600 mg PO Q12 03/08/24 03/11/24 History extended release 12 hr (Mucinex) ipratropium 0.5 mg-albuterol 3 mg 3 ml inhalation QID 03/08/24 03/11/24 History (2.5 mg base)/3 mL nebulization soln loperamide 2 mg tablet (Imodium 2 mg PO .Q2HR PRN Diarrhea 03/08/24 03/11/24 History A-D) loratadine 10 mg tablet 10 mg PO DAILY 03/08/24 03/11/24 History methenamine hippurate 1 gram tablet 1 g PO BID 03/08/24 03/11/24 History nystatin 100,000 unit/mL oral 5 ml PO QID 03/08/24 03/11/24 History suspension ondansetron HCl 4 mg tablet 4 mg PO Q6H PRN Nausea 03/08/24 03/11/24 History oxycodone 5 mg tablet 5 mg PO BID PRN .pain 5-10 03/08/24 03/11/24 History oxymetazoline 0.05 % nasal mist 2 spray intranasal Q12H PRN 03/08/24 03/11/24 History (Afrin (oxymetazoline)) .epistaxis pantoprazole 40 mg tablet,delayed 40 mg PO AMHS 03/08/24 03/11/24 History release phenazopyridine 200 mg tablet 200 mg PO Q8 PRN .bladder spasm 03/08/24 03/11/24 History (Pyridium) prednisone 10 mg tablet 10 mg PO QAM 03/08/24 03/11/24 History rosuvastatin 20 mg tablet 20 mg PO HS 03/08/24 03/11/24 History sodium chloride-aloe vera nasal 1 applic topical TID PRN .. 03/08/24 03/11/24 H istory gel ([place] Saline nasal gel) sucralfate 100 mg/mL oral 10 ml PO QID 03/08/24 03/11/24 History suspension cefdinir 300 mg capsule 300 mg PO BID 6 days #12 caps 03/11/24 03/11/24 Rx Past Med/Surg History Problem List (Updated 03/11/24 @ 21:18 by Delbert Martínez MD) Displaced fracture of right femoral neck Right femoral fracture Pyelonephritis (Acute) Pyelitis Elevated troponin Aspiration pneumonia Acute respiratory failure with hypoxia and hypercapnia Hypoxia (Acute) Discharge planning issues DVT prophylaxis GERD (gastroesophageal reflux disease) Anxiety Change in mental status (Acute) Urinary tract infection (Acute) Neuroforaminal stenosis of lumbar spine Hand abrasion Back pain Lumbar radiculopathy Greater trochanteric pain syndrome Leg pain, right COPD (chronic obstructive pulmonary disease) (Acute) Abdominal pain (Acute) Abnormal involuntary movements Hypophosphatemia Metabolic encephalopathy (Acute) Acute exacerbation of chronic obstructive pulmonary disease (COPD) Acute exacerbation of COPD with asthma Dysphagia Encounter for pre-operative examination Anemia GI bleed COPD (chronic obstructive pulmonary disease) "on home O2" Osteoporosis HTN (hypertension) Peripheral vascular disease Hyperlipidemia GERD (gastroesophageal reflux disease) Anxiety CAD (coronary artery disease) "Minimal non-obstructive CAD by left heart cath 2007" On 12/02/14 16:15 Jaye Nye wrote "Minimal non-obstructive CAD by left heart catherization 2007" Trigger finger History of appendectomy Arthritis of left knee Dysphagia Intractable nausea and vomiting Leg pain, left Weakness Weakness Dysphagia Asymptomatic bilateral carotid artery stenosis "s/p bilateral carotid endarterectomy" History of esophageal stricture Medical History Acute CVA (cerebrovascular accident) TIA (transient ischemic attack) [facility] resident resident of [facility] History of GI bleed History of anemia History of esophageal dilatation Diarrhea Difficulty swallowing PVD (peripheral vascular disease) Osteoporosis Arthritis Anxiety SOB (shortness of breath) on exertion Chronic obstructive pulmonary disease OXYGEN 3-4 L/MIN CONTINUOUSLY CAD (coronary artery disease) F/U DR Angélica LEONARDO Hyperlipidemia Hypertension Surgical History Hx of esophagogastroduodenoscopy "EGD 12/04/11 Dr. Woods- large hiatal hernia. stomach and small intestine were normal. esophagus dilated, small tear in the UES" History of left heart catheterization H/O colonoscopy "Colonoscopy 09/06/13 Dr. Woods- sigmoid diverticulosis, internal hemorrhoids, no polyps" On 12/02/14 16:04 Jaye Nye wrote "2012-adenomatous polyp" Status post insertion of iliac artery stent "Right common iliac artery stent and right external iliac artery angioplasty on 06/22/14, Dr. Rodriguez, [facility] [place]" History of hemorrhoidectomy History of knee surgery S/p bilateral carotid endarterectomy H/O vascular surgery RIGHT ILIAC ARTERY STENT PLACEMENT H/O knee surgery History of appendectomy History of esophagogastroduodenoscopy (EGD) History of colonoscopy History of cataract surgery R/L H/O hemorrhoidectomy H/O carotid endarterectomy R/L History of cardiac cath NO STENTS Family History Other No family history of adverse response to anesthesia Social History Smoking Status: Former smoker Age Started Using Tobacco: 19; packs per day: 2; Cigarettes Per Day: 5-10 CIG a day ADVISED; Do You Dip or Chew Tobacco: No; Preferred Language: Georgian Communication Ability: Impaired Communication Ability Comment: confused Underwriting Service Representative Required: No Beliefs That Will Affect Care: None marital status: / Current Living Situation: Snf Current Living Situation Comment: [facility] How many Children do You have: 1 Feels Safe at Home: Yes Assistive Devices: Cane and Walker Review of Systems All systems reviewed & are unremarkable except as noted in HPI & below. Physical Exam . Physical examination reveals a relatively pleasant female who looks to be slightly mentally challenged. She is lying in the hospital bed on her left side down right side. She is got multiple areas of bruising throughout which look to be chronic. Examination the right hip reveals her to hold in a slightly flexed position. She got marked pain with any type of hip motion. No knee effusion. As she is neurologically intact. 60s does seem to be somewhat spastic. Results & Data Results & Data Laboratory Results . Diagnostic Findings . X-rays of the right hip were reviewed. It shows a displaced femoral neck fracture. No signs of significant underlying arthritis. Bone otherwise looks pretty normal. PG Care Time/CCT Total # of Minutes Spent Total Time Spent with Patient: Total time spent is greater than 50% in coordination of care (as documented) at patient's floor/unit and/or counseling patient: Coding Level of Care Code 72349 IN/OBS CONSULT LVL 5,80M Diagnoses Displaced fracture of right femoral neck S72.001A
[2024-03-11] MEDS ORDERED: ALBUTEROL HFA 8 GM INHALER INH PRN (22:09)
[2024-03-11] MEDS ORDERED: ARFORMOTEROL TART 15MCG/2ML VIAL INH SCH (22:09)
[2024-03-11] MEDS: MoRPHine SULFATE 2 MG/ML CARP IV PRN (22:22)
[2024-03-11] MEDS: FORMOTEROL 20 MCG/2 ML VIAL INH SCH (22:56)
[2024-03-11] MEDS: BUDESONIDE 0.5 MG/2 ML VIAL (PULMICORT) INH SCH (22:57)
[2024-03-11] MEDS: ALBUT/IPRATROP 3MG/0.5MG NEB 3 ML VIAL INH SCH (22:57)
[2024-03-11] MEDS ORDERED: NALOXONE HCL 0.4 MG/1 ML VIAL/CARP IV PRN (23:08)
[2024-03-11] MEDS: fentaNYL 12 MCG/HR TDSY TD SCH (23:41)
[2024-03-11] MEDS: LACTATED RINGER'S 1,000 ML IV SCH (23:42)
[2024-03-11] MEDS: METHENAMINE HIPPURATE 1 GM TAB PO SCH (23:42)
[2024-03-11] MEDS: CEFDINIR 300 MG CAP PO SCH (23:42)
[2024-03-11] MEDS: clonazePAM 0.5 MG TAB PO SCH (23:52)
[2024-03-11] MEDS: ACETAMINOPHEN 325 MG TAB PO PRN (23:56)
[2024-03-12] MEDS: CHECK fentaNYL PATCH PLACEMENT SCH (00:25)
[2024-03-12] MEDS: MoRPHine SULFATE 4 MG/ML 1 ML CARP\\VIAL IV PRN (03:59)
[2024-03-12] MEDS ORDERED: LIDOCAINE 2% 2 ML VIAL/AMP(20MG/ML) INFIL ONE (06:50)
[2024-03-12] MEDS ORDERED: PROPOFOL IV EMULSION 10 MG/ML 20 ML VIAL IV ONE (06:51)
[2024-03-12] MEDS ORDERED: fentaNYL citrate PF 100 MCG/2 ML VIAL ONE (06:51)
--- NOTE | 2024-03-12 06:54 | History & Physical Bridge Note ---
Date of Service March 12, 2024 History & Physical Bridge Note I have examined the patient, reviewed the History & Physical and in the interval since the performance of the History & Physical I have noted the following changes of clinical significance: no changes noted
[2024-03-12 07:27] LABS: Hematocrit (blood only) 31.2 % (37.0-47.0); Hemoglobin 9.7 g/dl (12.0-16.0); Mean Corpuscular Hemoglobin 29.1 pg (25.0-34.0); Mean Corpuscular Hgb Conc 31.1 g/dL (32.0-36.0); Mean Corpuscular Volume 93.7 fL (80.0-100.0); Mean Platelet Volume 9.9 fL (9.4-12.4); Platelet Count 188 K/uL (130-400); RDW Coefficient of Variation 12.8 % (11.5-14.5); Red Blood Count 3.33 M/uL (4.20-5.40); White Blood Count 7.22 K/ul (4.8-10.8)
--- NOTE | 2024-03-12 07:29 | Anesthesiology Consultation ---
Date of Service March 12, 2024 Assessment & Plan Chart Review Chart Review: Acceptable Risk for Surgery and Patient NOT seen in Pre Admission Testing Consults Requested none History Surgery Operation Date: 03/12/24 08:30 Proposed Procedures p Intramedullary Elvis Femur(Right) - Delbert Martínez MD Height/Weight Height: 5 ft Weight: 54.1 kg Allergies Allergy/AdvReac Type Severity Reaction Status Date / Time metoclopramide Allergy Severe "lungs Verified 03/08/24 16:31 collapsed" cortisone Allergy Intermediate swelling Verified 03/08/24 16:31 salicylates Allergy Intermediate caused Verified 03/08/24 16:31 bleeding, can take EC aspirin Corticosteroids AdvReac Intermediate swelling Verified 03/08/24 16:31 (Glucocorticoids) Medications Home Medications Medication Instructions Recorded Confirmed Last Taken Saccharomyces boulardii 250 mg 250 mg PO BID 03/08/24 03/11/24 03/11/24 08:55 capsule (Florastor) acetaminophen 325 mg tablet 650 mg PO Q6 PRN Fever Or Pain 03/08/24 03/11/24 Unknown (Tylenol) albuterol sulfate 2.5 mg/3 mL 2.5 mg continuous nebulization 03/08/24 03/11/24 Unknown (0.083 %) solution for nebulization .Q2HR PRN Shortness Of Breath Or Wheezing albuterol sulfate 90 mcg/actuation 2 puff inhalation Q12 PRN 03/08/24 03/11/24 Unknown aerosol inhaler Shortness Of Breath arformoterol 15 mcg/2 mL solution 2 ml inhalation BID 03/08/24 03/11/24 03/11/24 07:12 for nebulization (Brovana) ascorbic acid (vitamin C) 1,000 mg 1 g PO QAM 03/08/24 03/11/24 Unknown tablet (Vitamin C) budesonide 0.5 mg/2 mL suspension 0.5 mg inhalation BID 03/08/24 03/11/24 03/11/24 07:12 for nebulization buspirone 7.5 mg tablet 7.5 mg PO BID 03/08/24 03/11/24 03/11/24 09:36 clonazepam 0.5 mg tablet 0.5 mg PO AMHS 03/08/24 03/11/24 03/11/24 09:10 clopidogrel 75 mg tablet (Plavix) 75 mg PO DAILY 03/08/24 03/11/24 03/11/24 08:53 cyanocobalamin (vitamin B-12) 500 500 mcg PO DAILY 03/08/24 03/11/24 Unknown mcg tablet (Vitamin B-12) diclofenac sodium 1 % topical gel 2 g topical QID 03/08/24 03/11/24 03/11/24 13:05 diltiazem HCl 60 mg tablet 60 mg PO QAM 03/08/24 03/11/24 03/11/24 08:58 escitalopram oxalate 5 mg tablet 5 mg PO QAM 03/08/24 03/11/24 03/11/24 08:55 estradiol 0.01% (0.1 mg/gram) 1 appful vaginal .MON, WED, FRI @HS 03/08/24 03/11/24 Unknown vaginal cream eucalyptus-menthol oral mucosal 1 mika mucous membrane .Q2HR PRN 03/08/24 03/11/24 Unknown lozenge Cough famotidine 20 mg tablet 20 mg PO BID 03/08/24 03/11/24 03/11/24 08:55 fentanyl 12 mcg/hr transdermal 12 mcg topical CQ72HR 03/08/24 03/11/24 03/08/24 20:00 patch fluticasone propionate 50 2 spray intranasal QAM 03/08/24 03/11/24 03/11/24 08:55 mcg/actuation nasal spray,suspension gabapentin 300 mg capsule 300 mg PO TID 03/08/24 03/11/24 03/11/24 13:05 guaifenesin 100 mg/5 mL oral liquid 300 mg PO Q4H PRN Cough 03/08/24 03/11/24 Unknown guaifenesin 600 mg tablet, 600 mg PO Q12 03/08/24 03/11/24 03/11/24 08:55 extended release 12 hr (Mucinex) ipratropium 0.5 mg-albuterol 3 mg 3 ml inhalation QID 03/08/24 03/11/24 03/11/24 11:04 (2.5 mg base)/3 mL nebulization soln loperamide 2 mg tablet (Imodium 2 mg PO .Q2HR PRN Diarrhea 03/08/24 03/11/24 03/10/24 A-D) loratadine 10 mg tablet 10 mg PO DAILY 03/08/24 03/11/24 03/11/24 08:55 methenamine hippurate 1 gram tablet 1 g PO BID 03/08/24 03/11/24 Unknown nystatin 100,000 unit/mL oral 5 ml PO QID 03/08/24 03/11/24 03/11/24 13:05 suspension ondansetron HCl 4 mg tablet 4 mg PO Q6H PRN Nausea 03/08/24 03/11/24 03/11/24 06:51 oxycodone 5 mg tablet 5 mg PO BID PRN .pain 5-10 03/08/24 03/11/24 03/09/24 oxymetazoline 0.05 % nasal mist 2 spray intranasal Q12H PRN 03/08/24 03/11/24 Unknown (Afrin (oxymetazoline)) .epistaxis pantoprazole 40 mg tablet,delayed 40 mg PO AMHS 03/08/24 03/11/24 03/11/24 08:55 release phenazopyridine 200 mg tablet 200 mg PO Q8 PRN .bladder spasm 03/08/24 03/11/24 Unknown (Pyridium) prednisone 10 mg tablet 10 mg PO QAM 03/08/24 03/11/24 03/11/24 08:55 10 mg rosuvastatin 20 mg tablet 20 mg PO HS 03/08/24 03/11/24 03/10/24 20:13 sodium chloride-aloe vera nasal 1 applic topical TID PRN .. 03/08/24 03/11/24 Unknown gel ([place] Saline nasal gel) sucralfate 100 mg/mL oral 10 ml PO QID 03/08/24 03/11/24 03/11/24 13:04 suspension cefdinir 300 mg capsule 300 mg PO BID 6 days #12 caps 03/11/24 03/11/24 Unknown Active Medications Generic Name Dose Route Start Last Admin Trade Name Freq PRN Reason Stop Dose Admin Acetaminophen 650 mg 03/11/24 22:09 03/11/24 23:56 Acetaminophen 325 Mg Tab PO 04/10/24 22:08 650 mg Q4H PRN Administration pain/fever Albuterol 3 ml 03/11/24 22:09 03/11/24 22:57 Albut/Ipratrop 3mg/0.5mg Neb 3 Ml Vial INH 04/10/24 22:08 Not Given QIDR SMITHA Protocol Budesonide 0.5 mg 03/11/24 22:09 03/11/24 22:57 Budesonide 0.5 Mg/2 Ml Vial (Pulmicort) INH 04/10/24 22:08 0.5 mg BIDR SMITHA Administration Cefdinir 300 mg 03/11/24 22:09 03/11/24 23:42 Cefdinir 300 Mg Cap PO 03/21/24 22:08 300 mg BID SMITHA Administration Protocol Clonazepam 0.5 mg 03/11/24 22:09 03/11/24 23:52 Clonazepam 0.5 Mg Tab PO 04/10/24 22:08 0.5 mg AMHS SMITHA Administration Fentanyl 1 patch 03/11/24 22:00 03/11/24 23:41 Fentanyl 12 Mcg/Hr Tdsy TD 03/25/24 21:59 1 patch Q72H SMITHA Administration Formoterol Fumarate 20 mcg 03/11/24 22:09 03/11/24 22:56 Formoterol 20 Mcg/2 Ml Vial INH 04/10/24 22:08 20 mcg BIDR SMITHA Administration Lactated Ringer's 1,000 mls @ 80 mls/hr 03/11/24 21:30 03/11/24 23:42 Lr IV 04/10/24 21:29 80 mls/hr .[id number] SMITHA Administration Methenamine Hippurate 1 gm 03/11/24 22:09 03/11/24 23:42 Methenamine Hippurate 1 Gm Tab PO 03/21/24 22:08 1 gm BID SMITHA Administration Miscellaneous 1 each 03/11/24 21:59 03/11/24 23:29 Fentanyl Patch Remove & Waste N/A 04/10/24 21:58 1 each Q72H SMITHA Administration Miscellaneous 1 each 03/12/24 00:00 03/12/24 00:25 Check Fentanyl Patch Placement N/A 04/11/24 00:00 1 each QS SMITHA Administration Morphine Sulfate 4 mg 03/11/24 22:09 03/12/24 03:59 Morphine Sulfate 4 Mg/Ml 1 Ml Carp\\Vial IV 03/25/24 22:08 4 mg Q4H PRN Administration Pain (5-10) Past Medical History Medical History Acute CVA (cerebrovascular accident) TIA (transient ischemic attack) detention resident resident of the [facility] History of GI bleed History of anemia History of esophageal dilatation Diarrhea Difficulty swallowing PVD (peripheral vascular disease) Osteoporosis Arthritis Anxiety SOB (shortness of breath) on exertion Chronic obstructive pulmonary disease OXYGEN 3-4 L/MIN CONTINUOUSLY CAD (coronary artery disease) F/U DR Angélica LEONARDO Hyperlipidemia Hypertension Past Family History Family History Other No family history of adverse response to anesthesia Past Surgical History Surgical History Hx of esophagogastroduodenoscopy "EGD 12/04/11 Dr. Woods- large hiatal hernia. stomach and small intestine were normal. esophagus dilated, small tear in the UES" History of left heart catheterization H/O colonoscopy "Colonoscopy 09/06/13 Dr. Woods- sigmoid diverticulosis, internal hemorrhoids, no polyps" On 12/02/14 16:04 Jaye Parris wrote "2012-adenomatous polyp" Status post insertion of iliac artery stent "Right common iliac artery stent and right external iliac artery angioplasty on 06/22/14, Dr. Rodriguez, [facility] [place] History of hemorrhoidectomy History of knee surgery S/p bilateral carotid endarterectomy H/O vascular surgery RIGHT ILIAC ARTERY STENT PLACEMENT H/O knee surgery History of appendectomy History of esophagogastroduodenoscopy (EGD) History of colonoscopy History of cataract surgery R/L H/O hemorrhoidectomy H/O carotid endarterectomy R/L History of cardiac cath NO STENTS Social History Smoking Status: Former smoker tobacco type: cigarettes and e-cigarettes Smoking cigarettes per day: 5-10 CIG a day ADVISED Do You Dip or Chew Tobacco: No Hx Alcohol Use: No Alcohol type: beer alcohol intake frequency: a few times a week Hx Substance Use: No substance use type: does not use Physical Exam Vital Signs Last Vital Signs Temp 36.7 C 03/11/24 22:15 Pulse 88 03/11/24 22:57 Resp 18 03/11/24 22:57 BP 126/51 L 05/18/24 22:15 Pulse Ox 96 03/11/24 22:57 O2 Del Method Nasal Cannula 03/11/24 22:57 O2 Flow Rate 4 03/11/24 22:57 Testing Laboratory Results 03/12/24 06:32 Urine Color Yellow 03/11/24 19:16 Urine Appearance Clear (Clear) 03/11/24 19:16 Urine pH 6.5 (4.5-7.5) 03/11/24 19:16 Ur Specific [place] 1.021 (1.000-1.030) 03/11/24 19:16 Urine Protein Trace (Negative) H 03/11/24 19:16 Urine Glucose (UA) Negative (Negative) 03/11/24 19:16 Urine Ketones Negative (Negative) 03/11/24 19:16 Urine Nitrite Negative (Negative) 03/11/24 19:16 Ur Leukocyte Esterase Negative (Negative) 03/11/24 19:16 Urine WBC (Auto) 0-5 /hpf (0-5) 03/11/24 19:16 Urine RBC (Auto) 0-2 /hpf (0-2) 03/11/24 19:16 U Hyaline Cast (Auto) 0-2 /lpf (0-2) 03/11/24 19:16 U Epithel Cells (Auto) 0-2 /hpf (0-2) 03/11/24 19:16 Urine Bacteria (Auto) None Seen (None Seen) 03/11/24 19:16 Blood Type O Positive 03/11/24 20:43 Antibody Screen NEGATIVE 03/11/24 20:43
--- NOTE | 2024-03-12 07:31 | Surgery Progress Note ---
Date of Service March 12, 2024 Assessment & Plan (1) Displaced fracture of right femoral neck: Plan: 78-year-old female with a recent fall with a right basicervical/intertrochanteric hip fracture. Initial x-rays were like a femoral neck fracture but the CT scan looks more like a base of the neck inotrope fracture. Looks to be relatively minimally displaced. Mostly just angulated. Plan on extensive evaluation of the images I think the best treatment is an i ntramedullary fixation. The fracture table and the reduced this and alignment. If it looks good we will likely put a long trip male. If not there is still a possibility we will do a cemented bipolar hip arthroplasty. Patient understands and desires to proceed informed consent was obtained. I did talk to her daughter about the situation as well. She is understanding and would like to proceed. She appears to be medically optimized. (2) Right femoral fracture: Admission and Anticipated Discharge Date Admission Date: March 11, 2024 Subjective 78-year-old female admitted with a right basicervical femoral neck and intertrochanteric hip fracture. She has been admitted by the medical service and evaluated. She has been medically optimized. She is now indicated for surgical treatment. No new complaints. Physical Exam Physical Exam: Physical exam shows a pleasant elderly female. She is lying in bed left side down right side up, hunched position. Examination of right hip reveals no obvious deformity. Mildly diffusely tender. Got multiple bruises throughout. She is neurologically intact. Does appear a bit spastic. Results & Data Vital Signs (Past 12 Hours) Vital Signs Temp Pulse Pulse Pulse Resp BP Pulse Ox 03/11/24 22:57 88 18 96 03/11/24 22:15 03/11/24 22:15 36.7 C 91 H 18 126/51 L 95 03/11/24 21:53 88 16 127/52 L 93 03/11/24 20:36 94 H 03/11/24 19:29 91 H 18 121/45 L 95 O2 Del Method O2 Flow Rate 03/11/24 22:57 Nasal Cannula 4 03/11/24 22:15 Nasal Cannula 4.5 03/11/24 22:15 Nasal Cannula 4.5 03/11/24 21:53 Nasal Cannula 4 03/11/24 20:36 03/11/24 19:29 Nasal Cannula 4 PG Care Time/CCT Total # of Minutes Spent Total Time Spent with Patient: Total time spent is greater than 50% in coordination of care (as documented) at patient's floor/unit and/or counseling patient: Coding Level of Care Code 47052 SUB INP/OBS CARE 2MIN Diagnoses Displaced fracture of right femoral neck S72.001A Right femoral fracture S72.91XA
[2024-03-12 07:34] LABS: BUN Creatinine Ratio 14.1 (10-20); Calcium 8.6 mg/dl (8.6-10.3); Creatinine Clr Calc Pharmacy 51.2 ml/min; Est GFR (African American) 98.4 ml/min; Est GFR (Non-African American) 84.9 ml/min; Potassium 3.2 mmol/L (3.5-5.1)
[2024-03-12] MEDS ORDERED: VASOPRESSIN 20 UNIT/ML VIAL ONE ×3 (08:24→09:13)
--- NOTE | 2024-03-12 08:26 | Hospitalist Progress Note ---
"Date of Service March 12, 2024 Assessment & Plan (1) Right femoral fracture: Plan Fall from bed | Acute R intertrochanteric and femoral neck fracture - XR hip indicating acute impacted right transcervical/basicervical femoral fracture without significant displacement. - XR shoulder unremarkable - CTAP only notable for nondisplaced R intertrochanteric hip fracture, no acute intra-abdominal bleeding. - Pain management: S/p 2 doses morphine 4 mg in ED Continue home Tylenol Continue home oxycodone 5 mg PO BID PRN Continue home fentanyl patch Ordered morphine 4 mg q6h PRN for breakthrough pain - - Orthopedics consulted Plan for surgical intervention 03/12 Acute bilateral pyelitis - Noted during recent admission 03/08-03/11 - Continue cefdinir (day 5 of antibiotics), plan 7-14 day course - Monitor CBC COPD/ Chronic hypoxemic, hypercapnic Respiratory Failure - Severe COPD at baseline, 3L NC at [facility] (No BiPAP) Now requiring 4 L via NC and stable - Not in acute exacerbation - Continue home inhalers - Continue daily prednisone - Mucinex held pending hip surgery, resume after Chronic anemia with recent hematochezia secondary to hemorrhoids - Hgb 10-12 on prior admission, drop from 11.6 to 10.6 this admission - No evidence of intra-abdominal bleeding on CTAP this admission - Hgb drop likely benign but potential association w/ acute hip fracture - Monitor CBC while inpatient -Still likely to benefit from outpatient colonoscopy Dysphagia/ GERD - Severe esophageal dysmotility on recent barium swallow, EGD deferred- noted from last admission - Strict aspiration precautions - PPI, H2 mya, Carafate held pending hip surgery Chronic anxiety with benzodiazepine use - Klonopin BID and Lexapro 5 mg daily held pending hip surgery, resume after Chronic back pain - Fentanyl patch, oxycodone BID PRN - Additional pain mgmt as above HTN - Antihypertensives held pending surgery - BP stable presently PVD - Antiplatelet held on admission for impending surgery, resume after CAD - Held statin on admission pending surgery, resume after Diet: NPO DVT Proph: Anticoagulation and antiplatelet held for impending surgery Dispo: Medical/surgical pending hip surgery Code Status: DNR/DNI Admission and Anticipated Discharge Date Admission Date: March 11, 2024 Supervising Physician Co-Signing Physician Notes Attending attestation Pt seen and examined in concert with Dr. Paz. In agreement with the documented findings as noted in the resident documentation with any exceptions or additions as noted here. Somnolent but arousable following sugery, no meaningful history obtainable presently. On examination, S1/S2 nl RRR no MCG. CTAB. Abd NT/ND BS+ve. b/l pedal pulses. Acute R intertroch and femoral neck fx s/p repair, POD #0 - ortho consult - pain adequately controlled, monitor CBC, BMP Pyelitis - complete course of abx therapy with cefdinir COPD with chronic hypoxic respiratory failure w/ 3L baseline - O2 per protocol, continue maintenance therapy Chronic anemia w/ recent hematochezia 2/2 hemorrhoids - monitor CBC perioperatively. Else see resident documentation as noted. Subjective Acute events overnight- none. Pt examined at bedside. Appeared to be in pain but responded to questions with nods. She did indicate her R hip was painful. Review of Systems Review of Systems: Per HPI/Subjective Physical Exam Physical Exam: Gen: tired, interactive, aware of person and place, frail, laying on left side with R hip flexed HEENT: mildly dry mucous membranes Resp:Non-labored, no wheezing/rhonchi/rales, CTAB CV:RRR, normal S1/S2, no M/R/G MSK/Neuro: Deferred testing of R hip/leg due to pain Skin: Bruising of R lateral hip Extr: 2+ dp bilaterally at dorsalis pedis and posterior tibial, no edema, no abnormal rotation of lower extremities Results & Data Results & Data Vital Signs (Past 12 Hours) Vital Signs Temp Pulse Pulse Pulse Resp BP BP 03/12/24 07:50 36.6 C 73 18 112/57 L 03/12/24 07:33 87 18 03/11/24 22:57 88 18 03/11/24 22:15 03/11/24 22:15 36.7 C 91 H 18 126/51 L 03/11/24 21:53 88 16 127/52 L 03/11/24 20:36 94 H Pulse Ox O2 Del Method O2 Flow Rate 03/12/24 07:50 98 Nasal Cannula 4 03/12/24 07:33 96 Nasal Cannula 5 03/11/24 22:57 96 Nasal Cannula 4 03/11/24 22:15 Nasal Cannula 4.5 03/11/24 22:15 95 Nasal Cannula 4.5 03/11/24 21:53 93 Nasal Cannula 4 03/11/24 20:36"
[2024-03-12] MEDS ORDERED: KETAMINE HCL 10MG/ML SYR ONE (08:27)
[2024-03-12] MEDS: ceFAZolin 2000MG 2,000 MG/15 ML SYR IV ONE (09:05)
[2024-03-12] MEDS ORDERED: ceFAZolin 330 MG/ML 1 GM VIAL ONE (09:08)
[2024-03-12] MEDS ORDERED: PHENYLEPHRINE HCL 10 MG/ML VIAL ONE (09:08)
--- NOTE | 2024-03-12 09:14 | Electrocardiogram Report ---
Test Reason : Blood Pressure : / mmHG Vent. Rate : 083 BPM Atrial Rate : 083 BPM P-R Int : 146 ms QRS Dur : 082 ms QT Int : 390 ms P-R-T Axes : 050 022 059 degrees QTc Int : 458 ms Normal sinus rhythm with occasional Premature atrial complexes Incomplete right bundle branch block Abnormal ECG When compared with ECG of 13-FEB-2024 09:26, Criteria for Anterior infarct are no longer Present Confirmed by Alexey Zacarias ([id number]) on 03/12/2024 9:13:58 AM Referred By: [facility] Confirmed By:Alexey Zacarias
[2024-03-12] MEDS ORDERED: ONDANSETRON INJ 2 MG/ML 2 ML VIAL ONE (09:27)
[2024-03-12] MEDS: BUPIVACAINE/EPINEPHRINE 0.5% MPF 1:200,000 30 ML VIAL ONE (09:46)
[2024-03-12] MEDS ORDERED: SUGAMMADEX SODIUM 200 MG/2 ML VIAL IV ONE (09:54)
--- NOTE | 2024-03-12 10:09 | Operative Report ---
PG Post Operative Report Pre & Post Diagnosis Operation Date: 03/12/24 08:30 Pre-Op Diagnosis: Displaced fracture of right femoral neck/intertrochanteric extension Post-Op Diagnosis: Displaced fracture of right femoral neck/intertrochanteric extension I identified the patient and participated in the time-out.: Yes Procedure Operation Date: 03/12/24 08:30 Actual Procedures p Intramedullary Nailing of Right Femur(Right) - Delbert Martínez MD Surgeon Delbert Martínez MD Melter Super[employer] Chalo Auguste PA-C Estimated Blood Loss 50 Findings Consistent with Post-Op Diagnosis Operative findings revealed a slightly displaced to the base of the neck hip fracture with extension into the intertrochanteric region. Significant retroversion of the femoral neck. Specimens None Anesthesia Type General Description of Procedure Operative implants consisted of: 1. Synthes right 340 mm x 11 mm long trochanteric nail. 2. 80 mm helical blade. 3. 42 mm x 5 mm distal interlocking screw. The patient was taken the op room, identified, left on the transport bed in the supine position. All contact areas were properly padded. IV antibiotics were provided by anesthesia team. A general anesthetic was implemented. Patient was then placed on the fracture table. All contact areas meticulously padded. The right leg was placed in boot traction the left leg was placed in a well leg arroyo. I applied some longitudinal traction to the leg and internally rotated the foot. X-ray was brought in. I really had maximally intraoperatively rotate the foot to get this reduced on the lateral. There was clearly a base of the neck fracture. We elect to place the IM nail. Right hip and leg were then scrubbed with Hibiclens and then prepped with ChloraPrep. The right hip was draped in the sterile fashion. A curvilinear incision was made just proximal to the trochanter. Sharp dissection was carried through subcutaneous tissue down to level gluteal fascia. Gluteal fascia was sized longitudinally in line with skin incision. A guidewire was placed just lateral to the tip of the trochanter in line with the IM canal in both the AP and lateral planes. Of note she did have significant retroversion of the femoral neck. This is advanced down the canal under fluoroscopic guidance. This is overreamed with the a 17 mm reamer. The guidewire was removed and a ball-tipped guidewire was placed. Measured for nail length and a 340 mm nail was selected. I then placed a 12 and half millimeter reamer down the canal over the wire. A 340 mm x 11 mm long trochanteric nail was placed. It was tapped into position. The lateral aiming arm was attached. A stab incision was made in the lateral aiming arm was advanced to the lateral aspect the femur. A guidewire was placed in the central aspect of the femoral neck and head on both the AP and lateral planes. This was measured. An 80 mm helical blade was selected. The cortical drill was used to breach the cortex. The triple reamer was set at 80 and the guidewire was overreamed. An 80 mm helical blade was placed and tapped into position. The proximal setscrew was tightened and the aiming arm was removed. Some final x-rays were obtained. Attention drawn toward distal interlocking. Using the perfect [place] technique a distal interlocking screw was placed in the distal portion of the dynamic hole. This made after a stab incision was made. Drilled with the 4.0 drill bit and placed a 5.0 millimeter screw. Some final x- rays were obtained. Attention drawn toward closing. All wounds were irrigated with coconuts of normal saline. Injected locally with 30 cc of half percent Marcaine with epinephrine. The gluteal fascia was then closed with #1 Vicryl suture in a running fashion the subcutaneous tissues of all wounds were closed with 2-0 Dexon suture in a buried interrupted fashion skin was closed skin vaishnavi. Leg was then cleaned and dried and a sterile dressing with Xeroform, 4 fours, ABD pad, foam tape was applied. The patient then brought out of general esthesia. She was transferred to the transport bed and transferred to the recovery room in stable condition. Patient tolerated the procedure well and there was no complications. Chalo Auguste, my physician professional nursing assistant, was present for the entire procedure. His assistance was required for proper patient positioning, prepping and draping, surgical exposure, retraction, perform the technical details of the operation, closure of the incision sites and placement of the sterile bandage. I attest to the content of the Intraoperative Record and any orders documented therein. Any exceptions are noted below.
[2024-03-12] MEDS ORDERED: LABETALOL HCL IV 5 MG/ML 20ML IV ONE (10:28)
[2024-03-12] MEDS ORDERED: ATROPINE SULFATE 0.1 MG/ML 10ML SYR IV PRN (10:37)
[2024-03-12] MEDS ORDERED: DROPERIDOL 5 MG/2 ML VIAL IV PRN (10:37)
[2024-03-12] MEDS ORDERED: ePHEDrine sulfate 50 MG/ML AMP IV PRN (10:37)
[2024-03-12] MEDS: fentaNYL citrate PF 100 MCG/2 ML VIAL IV PRN (10:40)
--- NOTE | 2024-03-12 11:01 | Fluoroscopy Report ---
FL hip RT 2-3V CLINICAL HISTORY: RT TROCH NAILacute right femoral fracture. COMPARISON STUDY: CT 03/11/2024 FLUOROSCOPY TIME: 83.2 seconds FLUOROSCOPY IMAGES: 5 EXPOSURE DOSE: 13.45 mGy FINDINGS: Fixated proximal right femoral fracture demonstrates satisfactory alignment. Intertrochante jakub nail with medullary shawanda. No acute fracture or unexpected opaque foreign body. IMPRESSION: Fluoroscopic assistance as above. ACT 112: Negative or not required by law. Electronically signed by: Lonnie Oshea M.D. 03/12/2024 11:00 AM
[2024-03-12] MEDS: dilTIAZem HCl 60 MG TAB PO SCH (11:49)
[2024-03-12] MEDS: FLUTICASONE PROPIONATE NA SPR 16 GM BTL SCH (11:49)
[2024-03-12] MEDS: predniSONE 10 MG TABLET PO SCH (11:50)
[2024-03-12] MEDS: SODIUM CHLORIDE 0.9% 1,000 ML IV SCH (12:09)
[2024-03-12] MEDS: ceFAZolin 1000MG 1,000 MG/7.5 ML SYR IV SCH (15:36)
[2024-03-12] MEDS: LACTATED RINGER'S 1,000 ML IV ONE (21:36)
[2024-03-12 22:06] LABS: Hemoglobin 8.6 g/dl (12.0-16.0); Mean Corpuscular Hemoglobin 29.4 pg (25.0-34.0); Mean Corpuscular Hgb Conc 30.7 g/dL (32.0-36.0); Mean Corpuscular Volume 95.6 fL (80.0-100.0); Mean Platelet Volume 10.3 fL (9.4-12.4); Platelet Count 181 K/uL (130-400); RDW Standard Deviation 44.9 fL (36.4-46.3); Red Blood Count 2.93 M/uL (4.20-5.40); White Blood Count 10.74 K/ul (4.8-10.8)
[2024-03-12 22:17] LABS: Albumin Globulin Ratio 1.7 (0.9-2); Albumin Level 2.9 gm/dl (3.4-5.0); Bilirubin,Total 0.4 mg/dl (0.2-1.0); Calcium 8.3 mg/dl (8.6-10.3); Creatinine Clr Calc Pharmacy 43.7 ml/min; Est GFR (African American) 87.9 ml/min; Est GFR (Non-African American) 75.8 ml/min; Globulin 1.7 gm/dl (2.5-4.0); Potassium 3.1 mmol/L (3.5-5.1); Total Protein 4.6 gm/dl (6.0-8.3)
--- NOTE | 2024-03-12 23:15 | Communication Note ---
Date of Service: March 12, 2024 Notified by nursing of patient's low blood pressures, 90s/60s which promptly progressed to 70s/30s with tachycardia and fever. Patient evaluated at bedside, notably warm to touch, heart tachycardic but regular, lungs diminished with rhonchi in bases, NC at 6L up from 4L. Patient minimally verbal on exam and only able to moan in response to questions. Given patient's SIRS + vital signs, previously downtrending Hgb and recent surgery CBC, CMP, Lactate, Blood Cultures, and CXR were obtained. 1L LR bolus started. Hgb downtrending but stable at 8.6, WBC normal, Lactate normal. Patient with positive response to fluid bolus, BP improved to 92/62 with HR 80 and resolution of fever. Albumin level low, ordered 50 g. Patient transferred to PCU for ongoing care, ICU JUAN notified of case. CTA performed w/o evidence of pulmonary embolism. Evidence of layering pleural effusions with concern for overlying infectious process. Antibiotics changed to Zosyn. Given risk of symptomatic anemia causing patient's hemodynamic instability, 1 unit PRBC ordered followed by Lasix 20 mg. Narcotic medications held due to hypotension. NSAIDs avoided due to bleeding ri sk. Patient provided IV Tylenol with notable relief and began to rest comfortably. Resident Activity Tracking Resident Involvement: Resident Care Provided Care Provided: Adult Hospital Medicine (Night)
[2024-03-12] MEDS: ALBUMIN 25% 25 GM/100 ML VIAL IV ONE (23:24)
[2024-03-12] MEDS: ALBUTEROL 0.083% NEBU SOLN 3 ML VIAL NEB PRN (23:40)
[2024-03-13] MEDS: OPTIRAY 320 125ml IV ONE (00:05)
[2024-03-13] MEDS: ACETAMINOPHEN 1,000 MG/100 ML VIAL IV PRN (00:36)
[2024-03-13] MEDS ORDERED: SODIUM CHLORIDE 0.9% 250 ML IV PRN (01:19)
--- NOTE | 2024-03-13 01:34 | CT Scan Report ---
Exam(s): CTA CHEST IV Amt: 116 ml optiray 320 EXAM: CT Angiography Chest With Intravenous Contrast CLINICAL HISTORY: Reason for exam: PE. TECHNIQUE: Axial computed tomographic angiography images of the chest with intravenous contrast. CTDI is 36.5 mGy and DLP is 574.72 mGy-cm. Automated exposure control was utilized for the study. A dose lowering technique was utilized adhering to the principles of ALARA. MIP reconstructed images were created and reviewed. COMPARISON: No relevant prior studies available. FINDINGS: Pulmonary arteries: Unremarkable. No acute pulmonary embolism. Aorta: No acute findings. No thoracic aortic aneurysm. Lungs: Moderate centrilobular emphysema. Flattening of the diaphragms and increased AP diameter of the chest, consistent with COPD. No consolidation. Pleural space: Unremarkable. No significant effusion. No pneumothorax. Heart: Mild cardiomegaly. No significant pericardial effusion. No evidence of RV dysfunction. Bones/joints: No acute fracture. No dislocation. Soft tissues: Unremarkable. Lymph nodes: Unremarkable. No enlarged lymph nodes. IMPRESSION: 1. No acute pulmonary embolism. 2. Moderate centrilobular emphysema. 3. Flattening of the diaphragms and increased AP diameter of the chest, consistent with COPD. Electronically signed by: Sang Avalos MD 03/13/24 01:33 AM
[2024-03-13] MEDS: ALBUMIN 25% 25 GM/100 ML VIAL IV ONE (01:36)
[2024-03-13] MEDS: PIPERACILLIN/TAZOBACTAM 4.5 GM in DEXTROSE 5% MINI-B 100 ML IV ONE (02:03)
[2024-03-13] MEDS ORDERED: POTASSIUM CHLORIDE / WTR 10 MEQ/100 ML PLCT IV SCH (05:15)
--- NOTE | 2024-03-13 05:52 | Billing Data ---
Date of Service March 13, 2024 Coding Level of Care Code 66138 INT INP/OBS CARE
[2024-03-13 06:26] LABS: BUN Creatinine Ratio 11.5 (10-20); Calcium 8.4 mg/dl (8.6-10.3); Creatinine Clr Calc Pharmacy 46.9 ml/min; Est GFR (African American) 83.8 ml/min; Est GFR (Non-African American) 72.3 ml/min; Potassium 3.2 mmol/L (3.5-5.1)
[2024-03-13] MEDS: FUROSEMIDE INJ 20 MG/2 ML VIAL IV ONE ×2 (06:39→07:12)
--- NOTE | 2024-03-13 06:51 | Hospitalist Progress Note ---
"Date of Service March 13, 2024 Assessment & Plan (1) Right femoral fracture: Plan Fall from bed | Acute R intertrochanteric and femoral neck fracture - XR hip indicating acute impacted right transcervical/basicervical femoral fracture without significant displacement. - XR shoulder unremarkable - CTAP only notable for nondisplaced R intertrochanteric hip fracture, no acute intra-abdominal bleeding. - Pain management: S/p 2 doses morphine 4 mg in ED Continue home Tylenol Continue home oxycodone 5 mg PO BID PRN Continue home fentanyl patch Ordered morphine 4 mg q6h PRN for breakthrough pain - - Orthopedics consulted and s/p IM Nailing of right femur 03/13 COPD/ Chronic hypoxemic, hypercapnic Respiratory Failure - Severe COPD at baseline, 3L NC at [facility] (No BiPAP) Increased O2 requirement up to 9L; now back down to 5L - Hypotensive and tachycardic overnight 03/12- no obvious source of infection - No signs of acute infection or PE on CTA; increased oxygen requirement likely secondary to COPD exacerbation - Ferbile x 1 (38.3) 03/12 - continue Zosyn pending 48 hrs negative blood cultures, add azithromycin - Continue home inhalers - Continue daily prednisone Acute bilateral pyelitis - Noted during recent admission 03/08-03/11 - Antibiotics as per above - Monitor CBC Chronic anemia with recent hematochezia secondary to hemorrhoids - Hgb 10-12 on prior admission, drop to 8.6 post-op and given hypotension/tachycardia with given 1 unit pRBC 03/13 - continue to trend CBC Dysphagia/ GERD - Severe esophageal dysmotility on recent barium swallow, EGD deferred- noted from last admission - Strict aspiration precautions - PPI, H2 mya, Carafate held pending hip surgery Chronic anxiety with benzodiazepine use - Klonopin BID and Lexapro/Buspar were held pre-op plan to resume tomorrow Chronic back pain - Fentanyl patch, oxycodone BID PRN - Additional pain mgmt as above HTN - Antihypertensives held due to hypotension - BP stable presently PVD - Antiplatelet held on admission for impending surgery, resume after CAD - Held statin on admission pending surgery, resume tomorrow Diet: Regular DVT Proph: Anticoagulation?antiplatelet held for surgery, concern for bleed post-op. Resume tomorrow if H/H is stable Code Status: DNR/DNI Admission and Anticipated Discharge Date Admission Date: March 11, 2024 Supervising Physician Co-Signing Physician Notes I personally examined the patient and verified all lane points of history and exam, discussed case, and agree with decision making with Dr Fields Communicating a little bit moremostly grunts, although she does wave the finger at me like she is waving goodbye whenever I leave the room. Granddaughter present. Updated the best my ability. Vitals noted, in general she is fatigued appearing and mostly nonverbal but is trying to communicate a little. No distress. Lungs are markedly diminished with almost absent air entry, although no accessory muscle use no respiratory distress, down to about her baseline O2 requirements. No other significant findings. Labs and diagnostics noted. See above otherwise for exam probable osteoporotic hip fracturenow status post repairoutpatient bone health management. PT/OT eval and treat. Last night's episode with hindsight appears most consistent with COPD exacerbationlow blood pressure obviously would not be encompassed by that, but this seems to have spontaneously resolved (question accuracy of reading versus transient circumstances)continue on Zosyn into tomorrow allowing time for blood cultures and urine culturebut doubt new bacterial infection. Continue supportive care. Follow closely. Otherwise as above. DVT prophylaxisper orthopedics (Plavix, compression) Subjective 78 year old female post-op day 2 from IM nailing of right femur. Minimal HPI from pt this morning. Noted that overnight pt was hypotensive, tachycardic, febrile. Review of Systems Review of Systems: As per above Physical Exam Physical Exam: Constitutional: well-appearing, no acute distress HEENT: NCAT, no conjunctival injection CV: regular rhythm, no murmur appreciated, extremities well-perfused, no LE edema Resp: no increased work of breathing, diminished breath sounds throughout with rhonchi in bases GI: soft, nondistended, nontender MSK: no gross deformities appreciated Skin: warm, dry, no rash appreciated Neuro: alert, oriented, no focal neurologic deficit appreciated Results & Data Results & Data Vital Signs (Past 12 Hours) Vital Signs Temp Pulse Pulse Pulse Resp BP BP 03/13/24 06:14 36.6 C 99 H 16 138/66 03/13/24 04:55 86 16 154/63 H 03/13/24 04:54 36.5 C 82 16 144/62 H 03/13/24 04:25 36.9 C 82 16 121/62 03/13/24 04:10 36.9 C 85 16 117/54 L 03/13/24 03:55 36.6 C 83 18 116/56 L 03/13/24 03:00 36.9 C 85 18 119/52 L 03/13/24 01:00 03/12/24 23:44 103 H 101/54 L 03/12/24 23:40 105 H 26 H 03/12/24 23:30 106 H 03/12/24 23:08 36.7 C 108 H 22 92/59 L 03/12/24 22:15 100/36 L 03/12/24 21:54 12 92/62 L 03/12/24 21:00 36.6 C 101 H 77/35 L 03/12/24 20:30 03/12/24 19:46 107 H 22 03/12/24 19:08 38.3 C H 103 H 18 92/54 L Pulse Ox O2 Del Method O2 Flow Rate 03/13/24 06:14 91 5 03/13/24 04:55 97 4 03/13/24 04:54 99 5 03/13/24 04:25 99 6 03/13/24 04:10 99 6 03/13/24 03:55 98 6 03/13/24 03:00 99 Oxymask 6 03/13/24 01:00 Oxymask 6 03/12/24 23:44 Oxymask 6 03/12/24 23:40 96 Oxymask 6 03/12/24 23:30 03/12/24 23:08 92 Oxymask 6 03/12/24 22:15 96 Oxymask 6 03/12/24 21:54 94 Oxymask 6 03/12/24 21:00 93 Oxymask 6 03/12/24 20:30 Oxymask 6 03/12/24 19:46 92 Oxymask 6 03/12/24 19:08 95 Oxymask 6"
[2024-03-13] MEDS: POTASSIUM CHLORIDE / WTR 10 MEQ/100 ML PLCT IV SCH (06:52)
--- NOTE | 2024-03-13 07:24 | Surgery Progress Note ---
Date of Service March 13, 2024 Assessment & Plan (1) Displaced fracture of right femoral neck: Plan: 78-year-old female postop day 1 from IM nailing of the right basicervical femoral neck/inotrope fracture. Seems bit sedated but that is good her status from time to time since hospitalization. She looks comfortable. Appears neurologically intact. Plan: 1. DVT prophylaxis including thigh-high teds, SCDs and she can resume her normal dose of Plavix. 2. PT/OT. She can fully weight-bear as tolerated. 3. Medical management as per the medicine service. 4. Disposition she is orthopedically okay for discharge anytime medically stable. Any orthopedic questions can be directed by vt at [phone]. She needs orthopedic follow-up 2 to 3 weeks out from surgery date. Admission and Anticipated Discharge Date Admission Date: March 11, 2024 Subjective 78-year-old female postop day 1 from IM nailing of the right basicervical femoral neck/intertrochanteric hip fracture. She is lying in bed. Looks pretty sedated this morning. Does not respond much to instructions. Physical Exam Physical Exam: Examination reveals an elderly female. Lying on her side which is typical for her. Examination of the right hip and leg reveals dressing be clean dry and intact. Thigh is soft and supple. Leg lengths are equal. She is neurologically intact. Results & Data Vital Signs (Past 12 Hours) Vital Signs Temp Pulse Pulse Pulse Resp BP BP 03/13/24 07:14 96 H 15 03/13/24 07:00 36.7 C 92 H 18 164/69 H 03/13/24 06:14 36.6 C 99 H 16 138/66 03/13/24 04:55 86 16 154/63 H 03/13/24 04:54 36.5 C 82 16 144/62 H 03/13/24 04:25 36.9 C 82 16 121/62 03/13/24 04:10 36.9 C 85 16 117/54 L 03/13/24 03:55 36.6 C 83 18 116/56 L 03/13/24 03:00 36.9 C 85 18 119/52 L 03/13/24 01:00 03/12/24 23:44 103 H 101/54 L 03/12/24 23:40 105 H 26 H 03/12/24 23:30 106 H 05/19/24 23:08 36.7 C 108 H 22 92/59 L 03/12/24 22:15 100/36 L 03/12/24 21:54 12 92/62 L 03/12/24 21:00 36.6 C 101 H 77/35 L 03/12/24 20:30 03/12/24 19:46 107 H 22 Pulse Ox O2 Del Method O2 Flow Rate 03/13/24 07:14 99 Oxymask 5 03/13/24 07:00 100 Oxymask 5 03/13/24 06:14 91 5 03/13/24 04:55 97 4 03/13/24 04:54 99 5 03/13/24 04:25 99 6 03/13/24 04:10 99 6 03/13/24 03:55 98 6 03/13/24 03:00 99 Oxymask 6 03/13/24 01:00 Oxymask 6 03/12/24 23:44 Oxymask 6 03/12/24 23:40 96 Oxymask 6 03/12/24 23:30 03/12/24 23:08 92 Oxymask 6 03/12/24 22:15 96 Oxymask 6 03/12/24 21:54 94 Oxymask 6 03/12/24 21:00 93 Oxymask 6 03/12/24 20:30 Oxymask 6 03/12/24 19:46 92 Oxymask 6 PG Care Time/CCT Total # of Minutes Spent Total Time Spent with Patient: Total time spent is greater than 50% in coordination of care (as documented) at patient's floor/unit and/or counseling patient: Coding Level of Care Code 01073 Post Operative Follow-Up Diagnoses Displaced fracture of right femoral neck S72.001A
--- NOTE | 2024-03-13 07:26 | XRay Report ---
XR chest 1V portable CLINICAL HISTORY: septic vitals TECHNIQUE: Single frontal radiograph of the chest was obtained. Comparison: Comparison is made to chest radiograph 02/13/2024 FINDINGS: No lines and tubes are seen. Calcified aortic knob is seen. Reticular interstitial opacities are seen . No evidence of pleural effusion or pneumothorax. Extrapleural fat is seen on the left. IMPRESSION: Interstitial thickening without acute abnormality. ACT 112: Negative or not required by law. Electronically signed by: Ritesh Izquierdo M.D. 03/13/2024 7:25 AM
[2024-03-13 08:02] LABS: Magnesium 1.4 mg/dl (1.7-2.4)
[2024-03-13 08:03] LABS: Hematocrit (blood only) 31.5 % (37.0-47.0); Mean Corpuscular Hemoglobin 28.9 pg (25.0-34.0); Mean Corpuscular Hgb Conc 31.7 g/dL (32.0-36.0); Mean Platelet Volume 10.3 fL (9.4-12.4); Platelet Count 153 K/uL (130-400); RDW Coefficient of Variation 13.7 % (11.5-14.5); RDW Standard Deviation 46.1 fL (36.4-46.3); Red Blood Count 3.46 M/uL (4.20-5.40); White Blood Count 11.21 K/ul (4.8-10.8)
[2024-03-13 08:58] LABS: C Reactive Protein 12.46 mg/dl (0-0.5)
[2024-03-13] MEDS: PIPERACILLIN/TAZOBACTAM 4.5 GM in DEXTROSE 5% MINI-B 100 ML IV SCH (08:59)
[2024-03-13] MEDS: MAGNESIUM SULFATE / D5W 1 GM/100 ML BAG IV SCH (09:32)
[2024-03-13] MEDS: AZITHROMYCIN 500 MG in DEXTROSE 5% 250 ML IV STA (14:40)
[2024-03-13] MEDS: ACETAMINOPHEN 500 MG TAB PO PRN (15:17)
--- NOTE | 2024-03-13 18:34 | Billing Data ---
Date of Service March 13, 2024 Coding Level of Care Code 54473 SUB INP/OBS CARE MIN
[2024-03-13] MEDS: busPIRone 7.5 MG TAB PO SCH (20:10)
[2024-03-14 06:49] LABS: Basophils # (auto) 0.02 K/uL (0.00-0.20); Basophils % (auto) 0.2 %; Eosinophils % (auto) 2.4 %; Hematocrit (blood only) 29.2 % (37.0-47.0); Hemoglobin 9.5 g/dl (12.0-16.0); Immature Granulocytes # (auto) 0.04 K/uL (0.01-0.20); Immature Granulocytes % (auto) 0.5 %; Lymphocytes # (auto) 0.68 K/uL (1.20-3.40); Lymphocytes % (auto) 8.2 %; Mean Corpuscular Hemoglobin 29.2 pg (25.0-34.0); Mean Corpuscular Hgb Conc 32.5 g/dL (32.0-36.0); Mean Corpuscular Volume 89.8 fL (80.0-100.0); Mean Platelet Volume 10.9 fL (9.4-12.4); Monocytes # (auto) 0.78 K/uL (0.11-0.59); Monocytes % (auto) 9.4 %; Neutrophils # (auto) 6.62 K/uL (1.40-6.50); Neutrophils % (auto) 79.3 %; Platelet Count 145 K/uL (130-400); RDW Coefficient of Variation 13.4 % (11.5-14.5); RDW Standard Deviation 44.1 fL (36.4-46.3); Red Blood Count 3.25 M/uL (4.20-5.40); White Blood Count 8.34 K/ul (4.8-10.8)
[2024-03-14 07:33] LABS: Albumin Globulin Ratio 1.7 (0.9-2); Albumin Level 3.3 gm/dl (3.4-5.0); BUN Creatinine Ratio 10.6 (10-20); Bilirubin,Total 0.5 mg/dl (0.2-1.0); Calcium 8.7 mg/dl (8.6-10.3); Creatinine Clr Calc Pharmacy 55.4 ml/min; Est GFR (African American) 97.4 ml/min; Globulin 1.9 gm/dl (2.5-4.0); Magnesium 1.8 mg/dl (1.7-2.4); Potassium 2.9 mmol/L (3.5-5.1); Total Protein 5.2 gm/dl (6.0-8.3)
--- NOTE | 2024-03-14 08:03 | Hospitalist Progress Note ---
"Date of Service March 14, 2024 Assessment & Plan (1) Right femoral fracture: Plan Fall from bed | Acute R intertrochanteric and femoral neck fracture - XR hip indicating acute impacted right transcervical/basicervical femoral fracture without significant displacement. - XR shoulder unremarkable - CTAP only notable for nondisplaced R intertrochanteric hip fracture, no acute intra-abdominal bleeding. - Pain management: S/p 2 doses morphine 4 mg in ED Continue home Tylenol Continue home oxycodone 5 mg PO BID PRN Continue home fentanyl patch Ordered morphine 4 mg q6h PRN for breakthrough pain - - Orthopedics consulted and s/p IM Nailing of right femur 03/13 COPD/ Chronic hypoxemic, hypercapnic Respiratory Failure - Severe COPD at baseline, 3L NC at [facility] (No BiPAP) Increased O2 requirement up to 9L; now back down to 5L - Hypotensive and tachycardic overnight 03/12- no obvious source of infection - No signs of acute infection or PE on CTA; increased oxygen requirement likely secondary to COPD exacerbation - Ferbile x 1 (38.3) 03/12 - continue azithromycin for COPD exacerbation, stop Zosyn as not acute signs of infection - Continue home inhalers - Continue daily prednisone Acute bilateral pyelitis - Noted during recent admission 03/08-03/11 - plan for cefdinir for a total of 14 days Chronic anemia with recent hematochezia secondary to hemorrhoids - Hgb 10-12 on prior admission, drop to 8.6 post-op and given hypotension/tachycardia with given 1 unit pRBC 03/13 - continue to trend CBC Dysphagia/ GERD - Severe esophageal dysmotility on recent barium swallow, EGD deferred- noted from last admission - Strict aspiration precautions - Continue PPI, H2 mya, Carafate Chronic anxiety with benzodiazepine use - Continue Klonopin BID and Lexapro/Buspar Chronic back pain - Fentanyl patch, oxycodone BID PRN - Additional pain mgmt as above HTN - Antihypertensives held due to hypotension - BP stable presently PVD - Continue Plavix CAD - continue statin Vit D Def - continue vitamin d supplementation Diet: Regular DVT Proph: SCD Code Status: DNR/DNI Admission and Anticipated Discharge Date Admission Date: March 11, 2024 Supervising Physician Co-Signing Physician Notes I personally examined the patient and verified all lane points of history and exam, discussed case, and agree with decision making with Dr Fields still extremely limited HPI and ROS but seems to feel a little better, still seems to have hip pain with movement. off O2 when i see her, initially 89% on RA, does fall to low 80s but with O2 back on quickly rebounds to high 80's. no distress angelic whole time. Vitals noted, in general she is fatigued appearin. No distress. Lungs are markedly diminished with almost absent air entry, although no accessory muscle use no respiratory distress, down to about her baseline O2 requirements. No other significant findings. Labs and diagnostics noted. See above otherwise for exam probable osteoporotic hip fracturenow status post repairoutpatient bone health management. PT/OT eval and treat. COPD exacerbationappears to be slowly improving, continue current care. DVT prophylaxisper orthopedics (Plavix, compression) Subjective 78-year-old female postop day 2 from IM nailing of the right base of the neck femoral neck fracture with intertrochanteric extension. No events overnight, appears comfortable. Review of Systems Review of Systems: As per above Physical Exam Physical Exam: Constitutional: well-appearing, no acute distress HEENT: NCAT, no conjunctival injection CV: regular rhythm, no murmur appreciated, extremities well-perfused, no LE edema Resp: no increased work of breathing, diminished breath sounds throughout with rhonchi in bases GI: soft, nondistended, nontender MSK: no gross deformities appreciated Skin: warm, dry, no rash appreciated Neuro: alert, oriented, no focal neurologic deficit appreciated Results & Data Results & Data Vital Signs (Past 12 Hours) Vital Signs Temp Pulse Pulse Resp BP Pulse Ox O2 Del Method 03/14/24 07:27 36.5 C 93 H 18 105/53 L 95 Oxymask 03/14/24 07:14 96 H 12 94 Oxymask 03/14/24 06:58 82 03/14/24 02:43 36.9 C 82 18 113/56 L 95 Oxymask 03/13/24 23:00 Oxyhood 03/13/24 22:58 36.7 C 86 16 123/60 94 Nasal Cannula O2 Flow Rate 03/14/24 07:27 5 03/14/24 07:14 5 03/14/24 06:58 03/14/24 02:43 4 03/13/24 23:00 5 03/13/24 22:58 4 Resident Activity Tracking Resident Involvement: Resident Care Provided Care Provided: Adult Hospital Medicine"
[2024-03-14] MEDS ORDERED: GABAPENTIN 300 MG CAP PO SCH (09:00)
[2024-03-14] MEDS: CLOPIDOGREL BISULFATE 75 MG TAB PO SCH (09:11)
[2024-03-14] MEDS: ESCITALOPRAM OXALATE 10 MG TAB PO SCH (09:11)
[2024-03-14] MEDS: ERGOCALCIFEROL 1250 MCG (50,000 UNITS) CAP PO ONE (09:20)
[2024-03-14] MEDS: POTASSIUM CHLORIDE CRTAB 20 MEQ TABCR PO STA ×2 (09:20)
[2024-03-14] MEDS: CHOLECALCIFEROL 25 MCG (1000 UNITS) TAB PO SCH (09:27)
--- NOTE | 2024-03-14 10:39 | Surgery Progress Note ---
Date of Service March 14, 2024 Assessment & Plan (1) Displaced fracture of right femoral neck: Plan: 78-year-old female with multiple medical comorbidities now postop day 2 from IM nailing of a right hip fracture. Seems to be little bit more awake alert today but not back to normal I do not believe. Does not seem to be in a lot of pain. Neurologically she appears stable. Plan: 1. DVT prophylaxis including thigh-high teds, SCDs, back on her normal dose of Plavix. 2. PT/OT. She can fully weight-bear as tolerated on this right leg. 3. Pain control seems to be doing okay with current pain regimen. 4. Wound management. Routine wound care. Dressing change daily. 5. Disposition she is orthopedically okay for discharge anytime medically stable. Any orthopedic questions can be directly [phone]. I need to see her back 2 to 3 weeks out from her surgery date. (2) Right femoral fracture: Admission and Anticipated Discharge Date Admission Date: March 11, 2024 Subjective 78-year-old female postop day 2 from IM nailing of the right base of the neck femoral neck fracture with intertrochanteric extension. She is doing okay yet. Once again she seems a bit confused this morning. She responds a little bit more to commands. Difficult to assess pain. Physical Exam Physical Exam: Examination reveals an elderly female who is lying on once again on her right side. Examination left hip and leg reveals the dressing to be clean dry and intact. Leg lengths appear equal. [place] and drainage. She is neurologically intact. Results & Data Vital Signs (Past 12 Hours) Vital Signs Temp Pulse Pulse Resp BP Pulse Ox O2 Del Method 03/14/24 08:30 92 H 03/14/24 07:27 36.5 C 93 H 18 105/53 L 95 Oxymask 03/14/24 07:14 96 H 12 94 Oxymask 03/14/24 06:58 82 03/14/24 02:43 36.9 C 82 18 113/56 L 95 Oxymask 03/13/24 23:00 Oxyhood 03/13/24 22:58 36.7 C 86 16 123/60 94 Nasal Cannula O2 Flow Rate 03/14/24 08:30 03/14/24 07:27 5 03/14/24 07:14 5 03/14/24 06:58 03/14/24 02:43 4 03/13/24 23:00 5 03/13/24 22:58 4 Laboratory Results Hemoglobin is 9.5. Hematocrit 29.2 electrolytes appear stable. PG Care Time/CCT Total # of Minutes Spent Total Time Spent with Patient: Total time spent is greater than 50% in coordination of care (as documented) at patient's floor/unit and/or counseling patient: Coding Level of Care Code 01659 Post Operative Follow-Up Diagnoses Displaced fracture of right femoral neck S72.001A Right femoral fracture S72.91XA
[2024-03-14] MEDS: AZITHROMYCIN 250 MG in DEXTROSE 5% 250 ML IV SCH (14:20)
[2024-03-14] MEDS: SODIUM CHLORIDE 0.9% 1,000 ML IV SCH (15:18)
--- NOTE | 2024-03-14 18:36 | Billing Data ---
Date of Service March 14, 2024 Coding Level of Care Code 91523 SUB INP/OBS CARE
[2024-03-14] MEDS: ROSUVASTATIN CALCIUM 20 MG TAB PO SCH (19:56)
[2024-03-14] MEDS: PANTOprazole 40 MG TAB PO SCH (19:56)
[2024-03-14] MEDS: CEFDINIR 300 MG CAP PO SCH (19:56)
[2024-03-14] MEDS: SUCRALFATE 1 GM/10 ML UDC PO SCH (19:57)
[2024-03-14] MEDS: FAMOTIDINE 20 MG TAB PO SCH (19:57)
[2024-03-15 07:44] LABS: Base Excess VBG 10.5 mEq/L; HCO3 VBG 38 mmol/L; Oxygen Saturation VBG 77.8 %; PCO2 VBG 63 mmHg (38-50); PO2 VBG 43 mmHg; pH VBG 7.39 (7.36-7.41)
[2024-03-15 07:58] LABS: Basophils # (auto) 0.03 K/uL (0.00-0.20); Basophils % (auto) 0.4 %; Eosinophils # (auto) 0.27 K/uL (0.00-0.50); Eosinophils % (auto) 3.5 %; Hematocrit (blood only) 32.3 % (37.0-47.0); Hemoglobin 10.2 g/dl (12.0-16.0); Immature Granulocytes # (auto) 0.06 K/uL (0.01-0.20); Immature Granulocytes % (auto) 0.8 %; Lymphocytes # (auto) 0.67 K/uL (1.20-3.40); Lymphocytes % (auto) 8.7 %; Mean Corpuscular Hemoglobin 28.8 pg (25.0-34.0); Mean Corpuscular Hgb Conc 31.6 g/dL (32.0-36.0); Mean Corpuscular Volume 91.2 fL (80.0-100.0); Mean Platelet Volume 10.5 fL (9.4-12.4); Monocytes # (auto) 0.96 K/uL (0.11-0.59); Monocytes % (auto) 12.4 %; Neutrophils # (auto) 5.74 K/uL (1.40-6.50); Neutrophils % (auto) 74.2 %; Platelet Count 197 K/uL (130-400); RDW Coefficient of Variation 13.1 % (11.5-14.5); RDW Standard Deviation 43.4 fL (36.4-46.3); Red Blood Count 3.54 M/uL (4.20-5.40); White Blood Count 7.73 K/ul (4.8-10.8)
[2024-03-15 08:33] LABS: Albumin Globulin Ratio 1.5 (0.9-2); Albumin Level 3.4 gm/dl (3.4-5.0); BUN Creatinine Ratio 14.3 (10-20); Bilirubin,Total 0.5 mg/dl (0.2-1.0); Calcium 8.8 mg/dl (8.6-10.3); Creatinine Clr Calc Pharmacy 72.6 ml/min; Est GFR (African American) 107.4 ml/min; Est GFR (Non-African American) 92.7 ml/min; Globulin 2.3 gm/dl (2.5-4.0); Magnesium 1.7 mg/dl (1.7-2.4); Potassium 3.2 mmol/L (3.5-5.1); Total Protein 5.7 gm/dl (6.0-8.3)
[2024-03-15] MEDS: POTASSIUM CHLORIDE CRTAB 20 MEQ TABCR PO STA (10:03)
--- NOTE | 2024-03-15 13:11 | Surgery Progress Note ---
Date of Service March 15, 2024 Assessment & Plan (1) Displaced fracture of right femoral neck: Plan: 78-year-old female with multiple medical comorbidities postop day 3 from IM nailing of right hip fracture. She seems to be a little bit better today. Still pretty confused and out of it. Difficult to assess her pain status. She appears neurologically intact. Plan: From the orthopedic standpoint she can be mobilized as tolerated. She is full weightbearing as tolerated. There are no particular restrictions. Routine wound care with dressing changes daily. DVT prophylaxis including thigh-high teds, SCDs, back on her normal Plavix. I need to see her back 2 to 3 weeks out from surgery date. Any orthopedic questions can be directly [phone]. I think this patient's outcome after such an injury and surgery are questionable at this point. She appears orthopedically stable. Admission and Anticipated Discharge Date Admission Date: March 11, 2024 Subjective 78-year-old female now postop day 3 from IM nailing of a hip fracture. She seems to be a little bit more awake and alert today but certainly still, quite confused. Hard to get her to follow commands. Hard to really understand whether she is in much pain or not. Physical Exam Physical Exam: Physical examination was a patient is lying in bed, once again quite contorted. Her legs are kind of bent up underneath her. There are dressings are clean dry and intact. Leg lengths appear equal. There is neurologically intact. Results & Data Vital Signs (Past 12 Hours) Vital Signs Temp Pulse Pulse Resp BP Pulse Ox O2 Del Method 03/15/24 11:24 36.9 C 97 H 16 130/68 95 Oxymask 03/15/24 10:38 91 H 17 98 Nasal Cannula 03/15/24 07:43 107 H 03/15/24 07:25 97 H 18 96 Oxymask 03/15/24 07:08 36.7 C 96 H 16 182/74 H 96 Oxymask 03/15/24 06:20 96 H 20 170/72 H 97 Oxymask 03/15/24 03:09 36.8 C 93 H 23 153/71 H 97 Oxymask O2 Flow Rate 03/15/24 11:24 5 03/15/24 10:38 5 03/15/24 07:43 03/15/24 07:25 2 03/15/24 07:08 4 03/15/24 06:20 4 03/15/24 03:09 5 Laboratory Results Hemoglobin is 10.2. Hematocrit 32.3. Electrolytes relatively stable. Potassium a little bit low at 3.2. PG Care Time/CCT Total # of Minutes Spent Total Time Spent with Patient: Total time spent is greater than 50% in coordination of care (as documented) at patient's floor/unit and/or counseling patient: Coding Level of Care Code 51361 Post Operative Follow-Up Diagnoses Displaced fracture of right femoral neck S72.001A
--- NOTE | 2024-03-15 13:57 | Hospitalist Progress Note ---
"Date of Service March 15, 2024 Assessment & Plan (1) Right femoral fracture: (2) Pyelonephritis: (3) Anxiety: (4) COPD (chronic obstructive pulmonary disease): Plan Fall from bed | Acute R intertrochanteric and femoral neck fracture - XR hip indicating acute impacted right transcervical/basicervical femoral fracture without significant displacement. - XR shoulder unremarkable - CTAP only notable for nondisplaced R intertrochanteric hip fracture, no acute intra-abdominal bleeding. - Pain management: S/p 2 doses morphine 4 mg in ED Continue home Tylenol Continue home oxycodone 5 mg PO BID PRN Continue home fentanyl patch Ordered morphine 4 mg q6h PRN for breakthrough pain 03-03 - Orthopedics consulted and s/p IM Nailing of right femur 03/13- stable for d/c back to [facility] for continued PT/OT COPD/ Chronic hypoxemic, hypercapnic Respiratory Failure - Severe COPD at baseline, 3L NC at [facility] (No BiPAP) Increased O2 requirement up to 9L; now back down to 5L - Hypotensive and tachycardic overnight 03/12- no obvious source of infection - No signs of acute infection or PE on CTA; increased oxygen requirement likely secondary to COPD exacerbation - Febrile x 1 (38.3) 03/12 - continue azithromycin for COPD exacerbation, stop Zosyn as not acute signs of infection - Continue home inhalers - Continue daily prednisone - Back to baseline- stable for d/c Acute bilateral pyelitis - Noted during recent admission 03/08-03/11 - plan for cefdinir for a total of 14 days- last day would be 03/22 Chronic anemia with recent hematochezia secondary to hemorrhoids - Hgb 10-12 on prior admission, drop to 8.6 post-op and given hypotension/tachycardia with given 1 unit pRBC 03/13 - has been stable at 10 Dysphagia/ GERD - Severe esophageal dysmotility on recent barium swallow, EGD deferred- noted from last admission - Strict aspiration precautions - Continue PPI, H2 mya, Carafate Chronic anxiety with benzodiazepine use - Continue Klonopin BID and Lexapro/Buspar Chronic back pain - Fentanyl patch, oxycodone BID PRN - Additional pain mgmt as above HTN - Antihypertensives held due to hypotension - BP stable presently PVD - Continue Plavix CAD - continue statin Vit D Def - continue vitamin d supplementation Diet: Regular DVT Proph: SCD Code Status: DNR/DNI Dispo: Stable from a Medical perspective to go back to [facility] Admission and Anticipated Discharge Date Admission Date: March 11, 2024 Supervising Physician Co-Signing Physician Notes I personally examined the patient and verified all lane points of history and exam, discussed case, and agree with decision making with Dr Fields Overall about the same as yesterday. [place] [place] [facility] observations here to his usual observations there, but we agree it sounds like her breathing is very likely at or near her baseline range. Whenever I see her at the bedside her daughter is presentupdated to the best my ability. Vitals noted, in general she is fatigued appearing. No distress. Breathing unlabored no accessory muscle use, oxime mask in place No other significant findings. Labs and diagnostics noted. See above otherwise for exam probable osteoporotic hip fracturenow status post repairoutpatient bone health management. PT/OT eval and treat. Discussed with daughter she has not been able to participate with PT here, but given her overall weakness and frailty, it would be of most benefit to be able to get her back to [facility] where they have a more robust therapy department. We also discussed that with her frailty and severity of lung disease, it would unfortunately not be surp rising if the weakness inflicted from this fracture began a downward spiral of deconditioning and malnutrition that could even lead to her demise. She expressed understanding of this. COPD exacerbation After discussion with her PCP, sounds like she is more or less in her baseline range. Continue current care. Try to encourage her from taking oxygen off, although it sounds like she does this excessively frequently anytime she is not constantly supervised. DVT prophylaxisper orthopedics (Plavix, compression) [facility]. Subjective 78-year-old female now postop day 4 from IM nailing of a hip fracture. She seems to be a little bit more awake and alert today, does not appear to be in acute distress. Review of Systems Review of Systems: As per above Physical Exam Physical Exam: Constitutional: well-appearing, no acute distress HEENT: NCAT, no conjunctival injection CV: regular rhythm, no murmur appreciated, extremities well-perfused, no LE edema Resp: no increased work of breathing, diminished breath sounds throughout with rhonchi in bases GI: soft, nondistended, nontender MSK: no gross deformities appreciated Skin: warm, dry, no rash appreciated Neuro: alert, oriented, no focal neurologic deficit appreciated Results & Data Results & Data Vital Signs (Past 12 Hours) Vital Signs Temp Pulse Pulse Resp BP Pulse Ox O2 Del Method 03/15/24 11:24 36.9 C 97 H 16 130/68 95 Oxymask 03/15/24 10:38 91 H 17 98 Nasal Cannula 03/15/24 07:43 107 H 03/15/24 07:25 97 H 18 96 Oxymask 03/15/24 07:08 36.7 C 96 H 16 182/74 H 96 Oxymask 03/15/24 06:20 96 H 20 170/72 H 97 Oxymask 03/15/24 03:09 36.8 C 93 H 23 153/71 H 97 Oxymask O2 Flow Rate 03/15/24 11:24 5 03/15/24 10:38 5 03/15/24 07:43 03/15/24 07:25 2 03/15/24 07:08 4 03/15/24 06:20 4 03/15/24 03:09 5 Resident Activity Tracking Resident Involvement: Resident Care Provided Care Provided: Adult Hospital Medicine (4) COPD (chronic obstructive pulmonary disease) COPD type: unspecified COPD Qualified Code(s): J44.9 - Chronic obstructive pulmonary disease, unspecified"
--- NOTE | 2024-03-15 17:47 | Billing Data ---
Date of Service March 15, 2024 Coding Level of Care Code 68396 SUB INP/OBS CARE
[2024-03-16 08:09] LABS: Hematocrit (blood only) 32.1 % (37.0-47.0); Hemoglobin 10.1 g/dl (12.0-16.0); Mean Corpuscular Hemoglobin 28.5 pg (25.0-34.0); Mean Corpuscular Hgb Conc 31.5 g/dL (32.0-36.0); Mean Corpuscular Volume 90.7 fL (80.0-100.0); Mean Platelet Volume 10.3 fL (9.4-12.4); Platelet Count 241 K/uL (130-400); RDW Coefficient of Variation 12.9 % (11.5-14.5); RDW Standard Deviation 42.5 fL (36.4-46.3); Red Blood Count 3.54 M/uL (4.20-5.40); White Blood Count 7.25 K/ul (4.8-10.8)
[2024-03-16 08:27] LABS: Calcium 9.4 mg/dl (8.6-10.3); Creatinine Clr Calc Pharmacy 69.7 ml/min; Est GFR (African American) 108.9 ml/min; Est GFR (Non-African American) 93.9 ml/min; Magnesium 1.6 mg/dl (1.7-2.4); Potassium 3.6 mmol/L (3.5-5.1)
[2024-03-16] MEDS: MAGNESIUM SULFATE / D5W 1 GM/100 ML BAG IV ONE (10:24)
--- NOTE | 2024-03-16 11:18 | Orthopedic Progress Note ---
Date of Service March 16, 2024 Assessment & Plan (1) Displaced fracture of right femoral neck: (2) S/P ORIF (open reduction internal fixation) fracture: Plan 78-year-old female with multiple medical comorbidities POD#4 from IM nailing of right hip fracture. Patient still confused, but awake and alert and receiving a breathing treatment. Does not cry out in pain with passive rolling onto her left side, however, does thrust out her arms to stabilize herself. Difficult to assess her pain status due to mental status. Plan: Plan: 1. DVT prophylaxis w/ thigh-high TEDs, SCDs, home dose Plavix. 2. Mobilize and PT/OT as tolerated. WBAT on RLE. 3. Routine wound care with daily dressing changes. 4. Disposition - per primary service 5. F/u with Dr. Martínez's team 2 to 3 weeks after surgery. Any orthopedic questions can be relayed directly to [phone]. Patient is orthopedically stable, but her ultimate surgical outcome/prognosis remains questionable due to her injury, other medical comorbidities, and the necessary surgical intervention. Admission and Anticipated Discharge Date Admission Date: March 11, 2024 Subjective 78-year-old female now POD#4 s/p IM nailing of a right hip fracture. Patient is awake and alert today, but remains confused. She is receiving a breathing treatment. Does not appear to be in acute distress. She has mittens in place. PT provider present and says that he does not believe she has been OOB yet. Physical Exam Physical Exam: Patient is lying in bed with legs drawn up. Right hip/thigh dressings are clean, dry, and intact. Leg lengths appear equal. Neurologically intact. Palpable DP/PT pulses. Results & Data Vital Signs (Past 12 Hours) Vital Signs Temp Pulse Pulse Resp BP Pulse Ox O2 Del Method 03/16/24 10:58 99 H 17 96 Oxymask 03/16/24 07:41 100 H 03/16/24 07:38 36.7 C 96 H 20 163/65 H 96 Oxymask 03/16/24 07:01 92 H 17 91 Oxymask 03/16/24 03:05 36.4 C L 96 H 22 152/65 H 95 Oxymask 03/16/24 00:58 94 H O2 Flow Rate 03/16/24 10:58 3 03/16/24 07:41 03/16/24 07:38 3 03/16/24 07:01 3 03/16/24 03:05 5 03/16/24 00:58 Laboratory Results Laboratory Results - last 24 hr 03/16/24 07:38 WBC 7.25 RBC 3.54 L Hgb 10.1 L Hct 32.1 L MCV 90.7 MCH 28.5 MCHC 31.5 L RDW Std Deviation 42.5 RDW Coeff of Renetta 12.9 Plt Count 241 MPV 10.3 Sodium 138 Potassium 3.6 Chloride 98 Carbon Dioxide 34 H Anion Gap 6 BUN 8 Creatinine 0.47 L Est Cr Clr Drug Dosing 69.7 Est GFR ( Amer) 108.9 Est GFR (Non-Af Amer) 93.9 BUN/Creatinine Ratio 17.0 Glucose 98 Calcium 9.4 Magnesium 1.6 L
--- NOTE | 2024-03-16 17:27 | Discharge Summary ---
Date of Service March 16, 2024 Admission HPI Per Admitting Provider Ana is a 78F with PMH of pyelitis (recently admitted 03/08 - 03/11), GERD, anxiety, lumbar radiculopathy/neuroforaminal stenosis, COPD, anemia, HTN, osteoporosis, PVD, HLD, CAD, dysphagia, and bilateral carotid artery stenosis who presented from [facility] via ambulance after a fall from the end of her bed which resulted in a hip fracture. Patient is unable to recall the exact events of her fall, but notes that she fell from bed height to the floor. She notes that she his in significant pain in her left hip, but otherwise provided no meaningful history. Principal Diagnosis Hip fracture Discharge Exam Constitutional: well-appearing, no acute distress HEENT: NCAT, no conjunctival injection CV: regular rhythm, no murmur appreciated, extremities well-perfused, no LE edema Resp: no increased work of breathing, diminished breath sounds throughout with rhonchi in bases GI: soft, nondistended, nontender MSK: no gross deformities appreciated Skin: warm, dry, no rash appreciated Neuro: alert, oriented, no focal neurologic deficit appreciated Discharge Data Allergies Allergy/AdvReac Type Severity Reaction Status Date / Time metoclopramide Allergy Severe "lungs Verified 03/08/24 16:31 collapsed" cortisone Allergy Intermediate swelling Verified 03/08/24 16:31 salicylates Allergy Intermediate caused Verified 03/08/24 16:31 bleeding, can take EC aspirin Corticosteroids AdvReac Intermediate swelling Verified 03/08/24 16:31 (Glucocorticoids) Consultations 03/11/24 19:26 ED Decision to Admit Stat 03/11/24 21:07 Consult Orthopedic Surgery Stat Procedures Performed Operation Date: 03/12/24 08:30 Actual Procedures p Intramedullary Nailing of Right Femur(Right) - Delbert Martínez MD Ordered Studies 03/11/24 17:02 CT head/brain wo con Stat CT neck [CT cervical spine wo con] Stat 03/11/24 19:04 CT Abd and Pelvis [CT abd pelvis IV con only] Stat 03/12/24 08:00 FL hip RT 2-3V Routine 03/12/24 23:21 CT angio chest PE protocol Stat Hospital Course (1) Right femoral fracture: (2) Pyelonephritis: (3) Anxiety: (4) COPD (chronic obstructive pulmonary disease): Plan Fall from bed | Acute R intertrochanteric and femoral neck fracture - XR hip indicating acute impacted right transcervical/basicervical femoral fracture without significant displacement. - XR shoulder unremarkable - CTAP only notable for nondisplaced R intertrochanteric hip fracture, no acute intra-abdominal bleeding. - Orthopedics consulted and s/p IM Nailing of right femur 03/13- stable for d/c back to [facility] for continued PT/OT COPD/ Chronic hypoxemic, hypercapnic Respiratory Failure - Severe COPD at baseline, 3L NC at [facility] (No BiPAP) Increased O2 requirement up to 9L; now back down to 5L - Hypotensive and tachycardic overnight 03/12- no obvious source of infection - No signs of acute infection or PE on CTA; increased oxygen requirement likely secondary to COPD exacerbation - Febrile x 1 (38.3) 03/12 - continue azithromycin for COPD exacerbation, stop Zosyn as not acute signs of infection - Continue home inhalers - Continue daily prednisone - Back to baseline- stable for d/c Acute bilateral pyelitis - Noted during recent admission 03/08-03/11 - plan for cefdinir for a total of 14 days- last day would be 03/22 Chronic anemia with recent hematochezia secondary to hemorrhoids - Hgb 10-12 on prior admission, drop to 8.6 post-op and given hypotension/tachycardia with given 1 unit pRBC 03/13 - has been stable at 10 Dysphagia/ GERD - Severe esophageal dysmotility on recent barium swallow, EGD deferred- noted from last admission - Strict aspiration precautions - Continue PPI, H2 mya, Carafate Chronic anxiety with benzodiazepine use - Continue Klonopin BID and Lexapro/Buspar Chronic back pain - Fentanyl patch, oxycodone BID PRN - Additional pain mgmt as above HTN - Antihypertensives held due to hypotension - BP stable presently PVD - Continue Plavix CAD - continue statin Vit D Def - continue vitamin d supplementation- would recommend 50,000 IU Vit D2 weekly x 8 weeks, followed by a daily repletion dose of 2,000 IU Vit D3 Total Time Total Time Spent Total Time Spent (In Minutes): <30 Discharge Plan Discharge Items Patient Disposition: [facility] Reason For Visit: HIP FRACTURE (RIGHT) Discharge Diagnosis: Right Hip Fracture Activity: Per Instructions section Weightbearing: Full weightbearing Non-emergency contact: Primary Care Provider Call non-emergency contact if: you have any medication questions Follow-up/Referrals: [facility] [Primary Care Provider] - Deblert Martínez MD [Physician] - 03/30/24 2:50 pm (Orthopedic follow-up 2-3 weeks from surgery date. Follow up scheduled March 30 at 2:50.) Diet: Regular Addtl Attending Provider Instructions: Fall from bed | Acute R intertrochanteric and femoral neck fracture - XR hip indicating acute impacted right transcervical/basicervical femoral fra cture without significant displacement. - XR shoulder unremarkable - CTAP only notable for nondisplaced R intertrochanteric hip fracture, no acute intra-abdominal bleeding. - Orthopedics consulted and s/p IM Nailing of right femur 03/13- stable for d/c back to [facility] for continued PT/OT COPD/ Chronic hypoxemic, hypercapnic Respiratory Failure - Severe COPD at baseline, 3L NC at [facility] (No BiPAP) Increased O2 requirement up to 9L; now back down to 5L - Hypotensive and tachycardic overnight 03/12- no obvious source of infection - No signs of acute infection or PE on CTA; increased oxygen requirement likely secondary to COPD exacerbation - Febrile x 1 (38.3) 03/12 - continue azithromycin for COPD exacerbation, stop Zosyn as not acute signs of infection - Continue home inhalers - Continue daily prednisone - Back to baseline- stable for d/c Acute bilateral pyelitis - Noted during recent admission 03/08-03/11 - plan for cefdinir for a total of 14 days- last day would be 03/22 Chronic anemia with recent hematochezia secondary to hemorrhoids - Hgb 10-12 on prior admission, drop to 8.6 post-op and given hypotension/tachycardia with given 1 unit pRBC 03/13 - has been stable at 10 Dysphagia/ GERD - Severe esophageal dysmotility on recent barium swallow, EGD deferred- noted from last admission - Strict aspiration precautions - Continue PPI, H2 mya, Carafate Chronic anxiety with benzodiazepine use - Continue Klonopin BID and Lexapro/Buspar Chronic back pain - Fentanyl patch, oxycodone BID PRN - Additional pain mgmt as above HTN - Antihypertensives held due to hypotension - BP stable presently PVD - Continue Plavix CAD - continue statin Vit D Def - continue vitamin d supplementation Addtl 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 Pending Studies at Discharge: No Stand-Alone Forms: My [employer], Smoking Cessation Skilled Items Patient informed of condition?: Yes DNR: Yes Discharge Level of Care: Acute rehab Communicable Disease: No Discharge Prognosis: Stable Lines: None Urinary Catheter: No Medications and DC Order Prescriptions: New cefdinir 300 mg Capsule 300 mg PO BID 6 Days Qty: 13 0RF cholecalciferol (vitamin D3) 25 mcg (1,000 unit) Capsule 25 mcg PO QAM 30 Days Qty: 30 0RF Continued ascorbic acid (vitamin C) [Vitamin C] 1,000 mg Tablet 1 g PO QAM albuterol sulfate 2.5 mg /3 mL (0.083 %) solution for nebulization 2.5 mg continuous nebulization .Q2HR PRN (Reason: Shortness Of Breath Or W heezing) clonazepam 0.5 mg tablet 0.5 mg PO AMHS loperamide [Imodium A-D] 2 mg Tablet 2 mg PO .Q2HR PRN (Reason: Diarrhea) Rx Instructions: administer after each loose stool until symptoms controlled; do not exceed 8 mg per 24 hrs clopidogrel [Plavix] 75 mg Tablet 75 mg PO DAILY guaifenesin 100 mg/5 mL Liquid 300 mg PO Q4H PRN (Reason: Cough) famotidine 20 mg Tablet 20 mg PO BID cyanocobalamin (vitamin B-12) [Vitamin B-12] 500 mcg Tablet 500 mcg PO DAILY gabapentin 300 mg capsule 300 mg PO TID buspirone 7.5 mg Tablet 7.5 mg PO BID budesonide 0.5 mg/2 mL suspension for nebulization 0.5 mg inhalation BID estradiol 0.01 % (0.1 mg/gram) cream 1 appful VAGINAL .MON, WED, FRI @HS albuterol sulfate 90 mcg/actuation HFA aerosol inhaler 2 puff INHALATION Q12 PRN (Reason: Shortness Of Breath) diltiazem HCl 60 mg tablet 60 mg PO QAM fluticasone propionate 50 mcg/actuation spray,suspension 2 spray INTRANASAL QAM Afrin (oxymetazoline) 0.05 % Mist 2 spray INTRANASAL Q12H PRN (Reason: .epistaxis) Saccharomyces boulardii [Florastor] 250 mg Capsule 250 mg PO BID Rx Instructions: am,hs escitalopram oxalate 5 mg Tablet 5 mg PO QAM Sidney Saline Gel 1 applic TOPICAL TID PRN (Reason: ..) fentanyl 12 mcg/hr patch 72 hour 12 mcg topical [id number] arformoterol [Brovana] 15 mcg/2 mL Solution For Nebulization 2 ml INHALATION BID guaifenesin [Mucinex] 600 mg Tablet Extended Release 12hr 600 mg PO Q12 nystatin 100,000 unit/mL suspension 5 ml PO QID Rx Instructions: swish & swallow acetaminophen [Tylenol] 325 mg Tablet 650 mg PO Q6 PRN (Reason: Fever Or Pain) prednisone 10 mg Tablet 10 mg PO QAM Rx Instructions: see taper instructions ipratropium-albuterol 0.5 mg-3 mg(2.5 mg base)/3 mL Solution For Nebulization 3 ml INHALATION QID sucralfate 100 mg/mL suspension 10 ml PO QID phenazopyridine [Pyridium] 200 mg Tablet 200 mg PO Q8 PRN (Reason: .bladder spasm) ondansetron HCl 4 mg Tablet 4 mg PO Q6H PRN (Reason: Nausea) methenamine hippurate 1 gram tablet 1 g PO BID pantoprazole 40 mg Tablet,Delayed Release (Dr/Ec) 40 mg PO AMHS loratadine 10 mg Tablet 10 mg PO DAILY oxycodone 5 mg Tablet 5 mg PO BID PRN (Reason: .pain 5-10) eucalyptus-menthol Lozenge 1 mika MUCOUS MEMBRANE .Q2HR PRN (Reason: Cough) rosuvastatin 20 mg Tablet 20 mg PO HS diclofenac sodium 1 % Gel 2 g TOPICAL QID Rx Instructions: Apply to bi-lateral shoulder and right thigh Discontinued cefdinir 300 mg capsule 300 mg PO BID 6 Days Qty: 12 0RF Discharge Orders: Discharge Order (Routine); Ordered 03/16/24 Ordered By: Shawnee Fields Admission Data Admit Date/Time: 03/11/24 21:07 Attending Provider: Mark Hampton Admit Provider: Mark Ceja Primary Care Provider: [facility] Other Providers: Hakeem Molina; Delbert Martínez Other Interventions: Discharge Summary Assessment (RN) Last Done: 03/16/24 14:41 Supervising Physician Co-Signing Physician Notes I personally examined the patient and verified all lane points of history and exam, discussed case, and agree with decision making with Dr Fields no new issues/no new problems. For [facility] today. Vitals noted, in general she is fatigued appearing. No distress. She had pulled her oxyg en off again prior to my entering the roomshe appeared to be in no distress, I gently put the oxygen back on. Breathing unlabored no accessory muscle use, oxime mask in place No other significant findings. Labs and diagnostics noted. See above otherwise for exam probable osteoporotic hip fracturenow status post repairoutpatient bone health management. PT/OT eval and treat. On 03/15 discussed with daughter she has not been able to participate with PT here, but given her overall weakness and frailty, it would be of most benefit to be able to get her back to [facility] where they have a more robust therapy department. (she was able to work with therapy today, and no surprise was only able to perform fairly poorly with a lot of assistance) We also discussed that with her frailty and severity of lung disease, it would unfortunately not be surprising if the weakness inflicted from this fracture began a downward spiral of deconditioning and malnutrition that could even lead to her demise. She expressed understanding of this. COPD exacerbation After discussion with her PCP, sounds like she is more or less in her baseline range. Continue current care. Try to encourage her from taking oxygen off, although it sounds like she does this excessively frequently anytime she is not constantly supervised. DVT prophylaxisper orthopedics (Plavix, compression) Dispoanticipate return to [facility] today Resident Activity Tracking Resident Involvement: Resident Care Provided Care Provided: Adult Hospital Medicine
--- NOTE | 2024-03-16 18:12 | Billing Data ---
Date of Service March 16, 2024 Coding Level of Care Code 07786 IN/OBS DISCH 30 MIN/LESS
== END 2024-03-16 16:59 | disposition home or self-care (01) | DRG 481 ==
LOC: ED 16:28 → 3N 21:07 → SUATTDRO 21:07 → 3N 22:00 → 2S 03-12 22:46

== ENCOUNTER 2024-05-07 19:38 | Inpatient (IN) ==
[2024-05-07 20:43] LABS: Hematocrit (blood only) 33.9 % (37.0-47.0); Hemoglobin 10.9 g/dl (12.0-16.0); Mean Corpuscular Hemoglobin 29.4 pg (25.0-34.0); Mean Corpuscular Hgb Conc 32.2 g/dL (32.0-36.0); Mean Corpuscular Volume 91.4 fL (80.0-100.0); Mean Platelet Volume 9.9 fL (9.4-12.4); Platelet Count 307 K/uL (130-400); RDW Coefficient of Variation 14.2 % (11.5-14.5); RDW Standard Deviation 47.7 fL (36.4-46.3); Red Blood Count 3.71 M/uL (4.20-5.40); White Blood Count 8.81 K/ul (4.8-10.8)
[2024-05-07 20:48] LABS: Alanine Aminotransferase 13 U/L (7-52); Albumin Globulin Ratio 1.7 (0.9-2); Albumin Level 3.8 gm/dl (3.4-5.0); Alkaline Phosphatase 73 U/L (34-104); Anion Gap 9 (3-11); Aspartate Aminotransferase 16 U/L (13-39); BUN Creatinine Ratio 25.3 (10-20); Bilirubin,Total 0.3 mg/dl (0.2-1.0); Blood Urea Nitrogen 20 mg/dl (6-23); Calcium 9.1 mg/dl (8.6-10.3); Carbon Dioxide 29 mmol/L (21-32); Chloride 95 mmol/L (98-107); Est GFR (African American) 82.5 ml/min; Est GFR (Non-African American) 71.2 ml/min; Globulin 2.2 gm/dl (2.5-4.0); Glucose 158 mg/dl (70-99(Fasting)); Magnesium 1.9 mg/dl (1.7-2.4); Potassium 3.8 mmol/L (3.5-5.1); Sodium 133 mmol/L (136-145)
[2024-05-07 20:54] LABS: Troponin I High Sensitivity 11.6 pg/ml (0-14)
--- NOTE | 2024-05-07 20:58 | Emergency Department Note ---
Impression & Plan Acute hypoxemic respiratory failure, Acute exacerbation of chronic obstructive pulmonary disease, Acute dyspnea ED Provider Note HISTORY OF PRESENT ILLNESS: Patient is a 78-year-old female presenting with shortness of breath. Patient presents from [facility] care where she reportedly became acutely short of breath today. They believe she is having a COPD exacerbation. Her saturations were 72-82 on her 3 L nasal cannula at their facility. They called 911. Patient has not been on any recent antibiotics or steroids, per her report. She was hypoxic down into the low 80s on 3 L and bumped up to 5 L nasal cannula. Patient denies any recent cough. Denies any chest pain. Denies any nausea or vomiting. ROS: as above PHYSICAL EXAM: Constitutional: Patient appears in no acute distress. HENT: Head: Normocephalic and atraumatic. Eyes: EOMI, PERRL Mouth/Throat: Mucous membranes moist. Neck: Trachea midline. Neck supple. Cardiovascular: Tachycardic with regular rhythm. No murmurs, rubs or gallops. Intact distal pulses. Pulmonary/Chest: Patient is on 3 L nasal cannula. She is tachypneic. Expiratory wheezes throughout bilateral lung saucedo. Abdominal: Abdomen soft, no tenderness, rebound or guarding. Musculoskeletal: No edema, tenderness or deformity noted. Skin: Warm and dry. No rash, erythema, pallor or cyanosis Psychiatric: Appropriate mood and affect for situation. Neurological: Alert and keenly responsive. CN II-XII grossly intact, moving all extremities equally and fully. MDM: - Vitals signs showed hypertension, tachypnea and tachycardia. - History obtained via patient. History as above. - Chronic conditions affecting care: HTN; HLD; CAD; COPD (on 3L NC at baseline); PVD - Differential diagnoses include, but are not limited to: Congestive heart failure; acute coronary syndrome; COPD/asthma exacerbation; pulmonary edema; pulmonary embolism; pneumonia; pneumothorax; viral syndrome - Order placed for continuous cardiac monitoring. At this time, monitor showed rate of 100 bpm with normal sinus rhythm, per my interpretation. - External medical records reviewed. Discharge summary dated 03/16/2024 was reviewed. Patient was admitted to the hospital for a hip fracture and had a hip replacement. - EKG interpreted by myself showed normal sinus rhythm. Rate tachycardic at 104 bpm. QT 360. No acute ischemic changes. - Laboratory workup interpreted by myself showed normal WBC; normal PT/INR; stable electrolytes; normal troponin; normal BNP - UA negative for infection - VBG normal - Viral respiratory panel negative - CXR negative for acute pneumonia, per my interpretation. - Patient very tachypneic on initial assessment and having expiratory wheezes. Given an hour-long DuoNeb treatment. Also given 1 g of IV magnesium to help with smooth muscle relaxation. She was transition to BiPAP and her heart rate and tachypnea have both improved. She is given 80 mg IV Solu-Medrol. - CT PE added to workup, given patient's recent surgery. - Discussion was had with case planner about patient's case and need for admission - Hospitalist, Dr. Martínez, consulted for admission - [facility] ASSESSMENT AND PLAN: Diagnosis: Acute hypoxic respiratory failure; acute dyspnea; acute COPD exacerbation Plan: Admit Past Med/Surg History Problem List (Updated 05/07/24 @ 22:36 by Jasmin Montenegro MD) Acute dyspnea (Acute) Acute exacerbation of chronic obstructive pulmonary disease (Acute) Acute hypoxemic respiratory failure (Acute) Complicated acute bronchitis (Acute) S/P ORIF (open reduction internal fixation) fracture Displaced fracture of right femoral neck Right femoral fracture (Acute) Pyelonephritis (Acute) Pyelitis Hypoxia (Acute) Discharge planning issues DVT prophylaxis GERD (gastroesophageal reflux disease) Anxiety Change in mental status (Acute) Urinary tract infection (Acute) Neuroforaminal stenosis of lumbar spine Hand abrasion Back pain Lumbar radiculopathy Greater trochanteric pain syndrome Leg pain, right COPD (chronic obstructive pulmonary disease) (Acute) Abdominal pain (Acute) Abnormal involuntary movements Hypophosphatemia Acute exacerbation of chronic obstructive pulmonary disease (COPD) Acute exacerbation of COPD with asthma Dysphagia Encounter for pre-operative examination Anemia GI bleed COPD (chronic obstructive pulmonary disease) "on home O2" Osteoporosis HTN (hypertension) Peripheral vascular disease Hyperlipidemia GERD (gastroesophageal reflux disease) Anxiety CAD (coronary artery disease) "Minimal non-obstructive CAD by left heart cath 2007" On 12/02/14 16:15 Jaye Nye wrote "Minimal non-obstructive CAD by left heart catherization 2007" Trigger finger History of appendectomy Arthritis of left knee Dysphagia Intractable nausea and vomiting Leg pain, left Weakness Weakness Dysphagia Asymptomatic bilateral carotid artery stenosis "s/p bilateral carotid endarterectomy" History of esophageal stricture Medical History Opiate overdose Acute CVA (cerebrovascular accident) TIA (transient ischemic attack) halfway resident History of GI bleed History of anemia History of esophageal dilatation Diarrhea Difficulty swallowing PVD (peripheral vascular disease) Osteoporosis Arthritis Anxiety SOB (shortness of breath) on exertion Chronic obstructive pulmonary disease CAD (coronary artery disease) Hyperlipidemia Hypertension Surgical History Hx of esophagogastroduodenoscopy History of left heart catheterization H/O colonoscopy Status post insertion of iliac artery stent History of hemorrhoidectomy History of knee surgery S/p bilateral carotid endarterectomy H/O vascular surgery H/O knee surgery History of appendectomy History of esophagogastroduodenoscopy (EGD) History of colonoscopy History of cataract surgery H/O hemorrhoidectomy H/O carotid endarterectomy History of cardiac cath Family History Other No family history of adverse response to anesthesia Social History Smoking Status: Former smoker Age Started Using Tobacco: 20; packs per day: 2; Cigarettes Per Day: 5-10 CIG a day ADVISED; Do You Dip or Chew Tobacco: No; Hx Alcohol Use: No Hx Substance Use: No Preferred Language: Macanese Communication Ability: Effective Communication Ability Comment: confused Party Plan Sales Consultant Required: No Beliefs That Will Affect Care: None marital status: / Current Living Situation: Halfway Current Living Situation Comment: [facility] How many Children do You have: 1 Feels Safe at Home: Yes Assistive Devices: Walker and Wheelchair Allergies Allergies Allergy/AdvReac Type Severity Reaction Status Date / Time metoclopramide Allergy Severe "lungs Verified 05/06/24 11:25 collapsed" cortisone Allergy Intermediate swelling Verified 05/06/24 11:25 salicylates Allergy Intermediate caused Verified 05/06/24 11:25 bleeding, can take EC aspirin Corticosteroids AdvReac Intermediate swelling Verified 05/06/24 11:25 (Glucocorticoids) Home Meds Home Medications Medication Instructions Recorded Confirmed Saccharomyces boulardii 250 mg 250 mg PO BID 03/08/24 05/06/24 capsule (Florastor) acetaminophen 325 mg tablet 650 mg PO Q6H PRN Fever Or Pain 03/08/24 05/06/24 (Tylenol) albuterol sulfate 2.5 mg/3 mL 2.5 mg continuous nebulization Q2H 03/08/24 05/06/24 (0.083 %) solution for nebulization PRN COPD albuterol sulfate 90 mcg/actuation 2 puff inhalation Q12H PRN COPD 03/08/24 05/06/24 aerosol inhaler arformoterol 15 mcg/2 mL solution 2 ml inhalation BID COPD 03/08/24 05/06/24 for nebulization (Brovana) ascorbic acid (vitamin C) 1,000 mg 1 g PO QAM 03/08/24 05/06/24 tablet (Vitamin C) budesonide 0.5 mg/2 mL suspension 0.5 mg inhalation BID COPD 03/08/24 05/06/24 for nebulization buspirone 7.5 mg tablet 7.5 mg PO BID 03/08/24 05/06/24 clonazepam 0.5 mg tablet 0.5 mg PO AMHS ANXIETY 03/08/24 05/06/24 clopidogrel 75 mg tablet (Plavix) 75 mg PO QAM 03/08/24 05/06/24 cyanocobalamin (vitamin B-12) 500 500 mcg PO QAM 03/08/24 05/06/24 mcg tablet (Vitamin B-12) diclofenac sodium 1 % topical gel See Rx Instructions .Route .COMPLEX 03/08/24 05/06/24 escitalopram oxalate 5 mg tablet 5 mg PO QAM 03/08/24 05/06/24 famotidine 20 mg tablet 20 mg PO BID GERD 03/08/24 05/06/24 fluticasone propionate 50 2 spray intranasal QAM 03/08/24 05/06/24 mcg/actuation nasal spray,suspension gabapentin 300 mg capsule 300 mg PO TID 03/08/24 05/06/24 guaifenesin 600 mg tablet, 600 mg PO BID cough 03/08/24 05/06/24 extended release 12 hr (Mucinex) ipratropium 0.5 mg-albuterol 3 mg 3 ml inhalation QID COPD 03/08/24 05/06/24 (2.5 mg base)/3 mL nebulization soln loperamide 2 mg tablet (Imodium 2 mg PO Q2H PRN Diarrhea 03/08/24 05/06/24 A-D) loratadine 10 mg tablet 10 mg PO QAM 03/08/24 05/06/24 methenamine hippurate 1 gram tablet 1 g PO BID UTI Prevention 03/08/24 05/06/24 nystatin 100,000 unit/mL oral 5 ml PO QID Thrush 03/08/24 05/06/24 suspension ondansetron HCl 4 mg tablet 4 mg PO Q6H PRN Nausea 03/08/24 05/06/24 oxycodone 5 mg tablet 5 mg PO Q4H PRN Pain 5-10 03/08/24 05/06/24 oxymetazoline 0.05 % nasal mist 2 spray intranasal Q12H PRN 03/08/24 05/06/24 (Afrin (oxymetazoline)) Epistaxis pantoprazole 40 mg tablet,delayed 40 mg PO BID GERD 03/08/24 05/06/24 release phenazopyridine 200 mg tablet 200 mg PO Q8H PRN Bladder Spasms 03/08/24 05/06/24 (Pyridium) prednisone 10 mg tablet 10 mg PO QAM COPD 03/08/24 05/06/24 rosuvastatin 20 mg tablet 20 mg PO HS HLD 03/08/24 05/06/24 bisacodyl 10 mg rectal suppository 10 mg AL DAILY PRN Constipation 05/06/24 05/06/24 (Dulcolax (bisacodyl)) cholecalciferol (vitamin D3) 1,250 1,250 mcg PO WK 05/06/24 05/06/24 mcg (50,000 unit) capsule cholecalciferol (vitamin D3) 50 50 mcg PO DAILY 05/06/24 05/06/24 mcg (2,000 unit) tablet (Vitamin D3) fentanyl 25 mcg/hr transdermal 25 mcg transdermal Q72H Chronic 05/06/24 05/06/24 patch Pain magnesium hydroxide 400 mg/5 mL 30 ml PO DAILY PRN Constipation 05/06/24 05/06/24 oral suspension (Milk of Magnesia) sodium phosphates 19 gram-7 118 ml AL DAILY PRN Constipation 05/06/24 05/06/24 gram/118 mL enema (Fleet Enema) Previous Rx's Medication Instructions Recorded doxycycline hyclate 100 mg tablet 100 mg PO BID 21 days #42 tabs 05/06/24 methylprednisolone 4 mg tablets in See Rx Instructions .Route 05/06/24 a dose pack (Medrol (Tyree)) .COMPLEX #21 ea Results & Data (ED) Vital Signs Vital Signs - 24 hr 05/07/24 19:34 05/07/24 19:45 05/07/24 19:55 Temperature 37.1 C Temperature Source Oral Pulse Rate 108 H 96 H Pulse Rate [Finger] 127 H Pulse Rhythm Regular Pulse Rhythm [Finger] Regular Pulse Strength Normal Pulse Strength [Finger] Normal Respiratory Rate 30 H 34 H Respiratory Effort / Characteristics Grunting Labored Short of Breath SOB on Exertion Short of Breath Respiratory Depth Shallow Shallow Respiratory Pattern Tachypnea Tachypnea Blood Pressure 143/69 H Blood Pressure [Right Arm] 143/69 H Blood Pressure Mean 93 Blood Pressure Mean [Right Arm] 93 Blood Pressure Position Lying Blood Pressure Position [Right Arm] Lying Pulse Oximetry 92 92 Oxygen Delivery Method Nasal Cannula Nasal Cannula Oxygen Flow Rate 4 4 Fraction of Inspired Oxygen Sepsis Recent Fever Within 48 Hours No Sepsis New/Unexplained Change in Mental Status No Sepsis Action Taken by Nursing No Action Required 05/07/24 20:45 05/07/24 21:00 05/07/24 21:20 Temperature Temperature Source Pulse Rate Pulse Rate [Finger] 115 H 107 H 99 H Pulse Rhythm Pulse Rhythm [Finger] Pulse Strength Pulse Strength [Finger] Respiratory Rate 25 H 25 H 17 Respiratory Effort / Characteristics Spontaneous Respiratory Depth Respiratory Pattern Blood Pressure Blood Pressure [Right Arm] 165/84 H 143/113 H Blood Pressure Mean Blood Pressure Mean [Right Arm] 111 123 Blood Pressure Position Blood Pressure Position [Right Arm] Pulse Oximetry 93 93 98 Oxygen Delivery Method Nasal Cannula Nasal Cannula BiPAP Oxygen Flow Rate 4 4 Fraction of Inspired Oxygen 30 Sepsis Recent Fever Within 48 Hours Sepsis New/Unexplained Change in Mental Status Sepsis Action Taken by Nursing 05/07/24 21:20 Temperature Temperature Source Pulse Rate 93 H Pulse Rate [Finger] Pulse Rhythm Pulse Rhythm [Finger] Pulse Strength Pulse Strength [Finger] Respiratory Rate 16 Respiratory Effort / Characteristics Spontaneous Respiratory Depth Respiratory Pattern Blood Pressure Blood Pressure [Right Arm] Blood Pressure Mean Blood Pressure Mean [Right Arm] Blood Pressure Position Blood Pressure Position [Right Arm] Pulse Oximetry 99 Oxygen Delivery Method Oxygen Flow Rate Fraction of Inspired Oxygen 30 Sepsis Recent Fever Within 48 Hours Sepsis New/Unexplained Change in Mental Status Sepsis Action Taken by Nursing Laboratory Data 05/07/24 19:55 05/07/24 19:55 Lab Results 05/07/24 05/07/24 05/07/24 Range/Units 19:55 20:50 21:26 WBC 8.81 (4.8-10.8) K/ul RBC 3.71 L (4.20-5.40) M/uL Hgb 10.9 L (12.0-16.0) g/dl Hct 33.9 L (37.0-47.0) % MCV 91.4 (80.0-100.0) fL MCH 29.4 (25.0-34.0) pg MCHC 32.2 (32.0-36.0) g/dL RDW Std Deviation 47.7 H (36.4-46.3) fL RDW Coeff of Renetta 14.2 (11.5-14.5) % Plt Count 307 (130-400) K/uL MPV 9.9 (9.4-12.4) fL Immature Gran % (Auto) 2.2 % Neut % (Auto) 91.0 % Lymph % (Auto) 3.4 % Duval % (Auto) 3.3 % Eos % (Auto) 0.0 % Baso % (Auto) 0.1 % Neut # (Auto) 8.02 H (1.40-6.50) K/uL Lymph # (Auto) 0.30 L (1.20-3.40) K/uL Duval # (Auto) 0.29 (0.11-0.59) K/uL Eos # (Auto) 0.00 (0.00-0.50) K/uL Baso # (Auto) 0.01 (0.00-0.20) K/uL Immature Gran # (Auto) 0.19 (0.01-0.20) K/uL PT 10.2 (9.0-12.0) Seconds INR 0.9 (0.9-1.1) VBG pH (7.36-7.41) VBG pCO2 (38-50) mmHg VBG pO2 mmHg VBG HCO3 mmol/L VBG O2 Saturation % VBG Base Excess mEq/L Sodium 133 L (136-145) mmol/L Potassium 3.8 (3.5-5.1) mmol/L Chloride 95 L (98-107) mmol/L Carbon Dioxide 29 (21-32) mmol/L Anion Gap 9 (3-11) BUN 20 (6-23) mg/dl Creatinine 0.79 (0.6-1.2) mg/dl Est Cr Clr Drug Dosing Not Reportable Est GFR ( Amer) 82.5 ml/min Est GFR (Non-Af Amer) 71.2 ml/min BUN/Creatinine Ratio 25.3 H (10-20) Glucose 158 H (70-99(Fasting)) mg/dl Calcium 9.1 (8.6-10.3) mg/dl Magnesium 1.9 (1.7-2.4) mg/dl Total Bilirubin 0.3 (0.2-1.0) mg/dl AST 16 (13-39) U/L ALT 13 (7-52) U/L Alkaline Phosphatase 73 (34-104) U/L Troponin I High Sens 11.6 (0-14) pg/ml B-Natriuretic Peptide 42 (0-100) pg/ml Total Protein 6.0 (6.0-8.3) gm/dl Albumin 3.8 (3.4-5.0) gm/dl Globulin 2.2 L (2.5-4.0) gm/dl Albumin/Globulin Ratio 1.7 (0.9-2) Urine Color Yellow Urine Appearance Clear (Clear) Urine pH 5.5 (4.5-7.5) Ur Specific Grant 1.008 (1.000-1.030) Urine Protein Negative (Negative) Urine Glucose (UA) Negative (Negative) Urine Ketones Negative (Negative) Urine Blood Negative (Negative) Urine Nitrite Negative (Negative) Urine Bilirubin Negative (Negative) Urine Urobilinogen Negative (Negative) Ur Leukocyte Esterase Negative (Negative) Adenovirus (PCR) Not Detected (NotDetected) B. pertussis DNA (PCR) Not Detected (NotDetected) B.parapertussis DNA PCR Not Detected (NotDetected) C. pneumoniae DNA (PCR) Not Detected (NotDetected) Coronavirus OC43 (PCR) Not Detected (NotDetected) Coronavirus HKU1 (PCR) Not Detected (NotDetected) Coronavirus 229E (PCR) Not Detected (NotDetected) SARS-CoV-2 (PCR) Not Detected (NotDetected) Coronavirus NL63 (PCR) Not Detected (NotDetected) Human Metapneumovir PCR Not Detected (NotDetected) Influenza Type A (PCR) Not Detected (NotDetected) Influenza Type B (PCR) Not Detected (NotDetected) M. pneumoniae (PCR) Not Detected (NotDetected) Parainfluenza 1 (PCR) Not Detected (NotDetected) Parainfluenza 2 (PCR) Not Detected (NotDetected) Parainfluenza 3 (PCR) Not Detected (NotDetected) Parainfluenza 4 (PCR) Not Detected (NotDetected) RSV (PCR) Not Detected (NotDetected) Entero/Rhino (PCR) Not Detected (NotDetected) 05/07/24 Range/Units 21:41 WBC (4.8-10.8) K/ul RBC (4.20-5.40) M/uL Hgb (12.0-16.0) g/dl Hct (37.0-47.0) % MCV (80.0-100.0) fL MCH (25.0-34.0) pg MCHC (32.0-36.0) g/dL RDW Std Deviation (36.4-46.3) fL RDW Coeff of Renetta (11.5-14.5) % Plt Count (130-400) K/uL MPV (9.4-12.4) fL Immature Gran % (Auto) % Neut % (Auto) % Lymph % (Auto) % Duval % (Auto) % Eos % (Auto) % Baso % (Auto) % Neut # (Auto) (1.40-6.50) K/uL Lymph # (Auto) (1.20-3.40) K/uL Duval # (Auto) (0.11-0.59) K/uL Eos # (Auto) (0.00-0.50) K/uL Baso # (Auto) (0.00-0.20) K/uL Immature Gran # (Auto) (0.01-0.20) K/uL PT (9.0-12.0) Seconds INR (0.9-1.1) VBG pH 7.40 (7.36-7.41) VBG pCO2 47 (38-50) mmHg VBG pO2 104 mmHg VBG HCO3 29 mmol/L VBG O2 Saturation 98.7 % VBG Base Excess 3.5 mEq/L Sodium (136-145) mmol/L Potassium (3.5-5.1) mmol/L Chloride (98-107) mmol/L Carbon Dioxide (21-32) mmol/L Anion Gap (3-11) BUN (6-23) mg/dl Creatinine (0.6-1.2) mg/dl Est Cr Clr Drug Dosing Est GFR ( Amer) ml/min Est GFR (Non-Af Amer) ml/min BUN/Creatinine Ratio (10-20) Glucose (70-99(Fasting)) mg/dl Calcium (8.6-10.3) mg/dl Magnesium (1.7-2.4) mg/dl Total Bilirubin (0.2-1.0) mg/dl AST (13-39) U/L ALT (7-52) U/L Alkaline Phosphatase (34-104) U/L Troponin I High Sens (0-14) pg/ml B-Natriuretic Peptide (0-100) pg/ml Total Protein (6.0-8.3) gm/dl Albumin (3.4-5.0) gm/dl Globulin (2.5-4.0) gm/dl Albumin/Globulin Ratio (0.9-2) Urine Color Urine Appearance (Clear) Urine pH (4.5-7.5) Ur Specific Grant (1.000-1.030) Urine Protein (Negative) Urine Glucose (UA) (Negative) Urine Ketones (Negative) Urine Blood (Negative) Urine Nitrite (Negative) Urine Bilirubin (Negative) Urine Urobilinogen (Negative) Ur Leukocyte Esterase (Negative) Adenovirus (PCR) (NotDetected) B. pertussis DNA (PCR) (NotDetected) B.parapertussis DNA PCR (NotDetected) C. pneumoniae DNA (PCR) (NotDetected) Coronavirus OC43 (PCR) (NotDetected) Coronavirus HKU1 (PCR) (NotDetected) Coronavirus 229E (PCR) (NotDetected) SARS-CoV-2 (PCR) (NotDetected) Coronavirus NL63 (PCR) (NotDetected) Human Metapneumovir PCR (NotDetected) Influenza Type A (PCR) (NotDetected) Influenza Type B (PCR) (NotDetected) M. pneumoniae (PCR) (NotDetected) Parainfluenza 1 (PCR) (NotDetected) Parainfluenza 2 (PCR) (NotDetected) Parainfluenza 3 (PCR) (NotDetected) Parainfluenza 4 (PCR) (NotDetected) RSV (PCR) (NotDetected) Entero/Rhino (PCR) (NotDetected) Administered Medications Discontinued Medications Albuterol (Albut/Ipratrop 3mg/0.5mg Neb 3 Ml Vial) 12 ml NEB ONE ONE; Protocol Stop: 05/07/24 20:57 Last Admin: 05/07/24 21:10 Dose: 12 ml Documented By: LORENA Magnesium Sulfate/Dextrose (Magnesium Sulfate / D5w) 1 gm in 100 mls @ 100 mls/hr IV NOW STA Stop: 05/07/24 21:55 Last Admin: 05/07/24 21:26 Dose: 100 mls/hr Documented By: KESHAV Methylprednisolone (Methylprednisolone 125 Mg/2 Ml Vial) 80 mg IV NOW STA Stop: 05/07/24 22:27 Last Admin: 05/07/24 22:38 Dose: 80 mg Documented By: STEVE Discharge Plan Visit Data Chief Complaint: Respiratory Problems Stated Complaint: BREATHING DIFFICULTY ED Provider: Jasmin Montenegro Discharge Problem: Acute hypoxemic respiratory failure, Acute exacerbation of chronic obstructive pulmonary disease, Acute dyspnea Forms Stand Alone Forms: [facility] [employer] Prescriptions Prescriptions: No Action ascorbic acid (vitamin C) [Vitamin C] 1,000 mg Tablet 1 g PO QAM albuterol sulfate 2.5 mg /3 mL (0.083 %) solution for nebulization 2.5 mg continuous nebulization Q2H PRN (Reason: COPD) clonazepam 0.5 mg tablet 0.5 mg PO AMHS loperamide [Imodium A-D] 2 mg Tablet 2 mg PO Q2H PRN (Reason: Diarrhea) Rx Instructions: administer after each loose stool until symptoms controlled; do not exceed 8 mg per 24 hrs clopidogrel [Plavix] 75 mg Tablet 75 mg PO QAM famotidine 20 mg Tablet 20 mg PO BID cyanocobalamin (vitamin B-12) [Vitamin B-12] 500 mcg Tablet 500 mcg PO QAM gabapentin 300 mg capsule 300 mg PO TID buspirone 7.5 mg Tablet 7.5 mg PO BID budesonide 0.5 mg/2 mL suspension for nebulization 0.5 mg inhalation BID albuterol sulfate 90 mcg/actuation HFA aerosol inhaler 2 puff INHALATION Q12H PRN (Reason: COPD) fluticasone propionate 50 mcg/actuation spray,suspension 2 spray INTRANASAL QAM Afrin (oxymetazoline) 0.05 % Mist 2 spray INTRANASAL Q12H PRN (Reason: Epistaxis) Saccharomyces boulardii [Florastor] 250 mg Capsule 250 mg PO BID Rx Instructions: am,hs escitalopram oxalate 5 mg Tablet 5 mg PO QAM arformoterol [Brovana] 15 mcg/2 mL Solution For Nebulization 2 ml INHALATION BID guaifenesin [Mucinex] 600 mg Tablet Extended Release 12hr 600 mg PO BID nystatin 100,000 unit/mL suspension 5 ml PO QID Rx Instructions: swish & swallow acetaminophen [Tylenol] 325 mg Tablet 650 mg PO Q6H MDD 3g/24hr PRN (Reason: Fever Or Pain) prednisone 10 mg Tablet 10 mg PO QAM Rx Instructions: see taper instructions ipratropium-albuterol 0.5 mg-3 mg(2.5 mg base)/3 mL Solution For Nebulization 3 ml INHALATION QID phenazopyridine [Pyridium] 200 mg Tablet 200 mg PO Q8H PRN (Reason: Bladder Spasms) ondansetron HCl 4 mg Tablet 4 mg PO Q6H PRN (Reason: Nausea) methenamine hippurate 1 gram tablet 1 g PO BID pantoprazole 40 mg Tablet,Delayed Release (Dr/Ec) 40 mg PO BID loratadine 10 mg Tablet 10 mg PO QAM oxycodone 5 mg Tablet 5 mg PO Q4H PRN (Reason: Pain 5-10 ) rosuvastatin 20 mg Tablet 20 mg PO HS diclofenac sodium 1 % Gel See Rx Instructions .ROUTE .COMPLEX Rx Instructions: Apply 2g to the shoulders and 4g to the right thigh. Ok to use despite allergy <--- On pt's MAR magnesium hydroxide [Milk of Magnesia] 400 mg/5 mL Suspension 30 ml PO DAILY PRN (Reason: Constipation) Rx Instructions: If no BM for 3 days administer on (7-3 shift) bisacodyl [Dulcolax (bisacodyl)] 10 mg Suppository 10 mg AL DAILY PRN (Reason: Constipation) Rx Instructions: Give on day 3 (3-11 shift) if no BM after MOM Fleet Enema 19-7 gram/118 mL Enema 118 ml AL DAILY PRN (Reason: Constipation) Rx Instructions: If no BM after Dulcolax, administer on day 4 (73 shift) fentanyl 25 mcg/hr patch 72 hour 25 mcg transdermal Q72H cholecalciferol (vitamin D3) 1,250 mcg (50,000 unit) Capsule 1,250 mcg PO WK Rx Instructions: Start Date 03/18/24 - End Date 05/13/24 - Only for 8 weeks on Saturdays cholecalciferol (vitamin D3) [Vitamin D3] 50 mcg (2,000 unit) Tablet 50 mcg PO DAILY doxycycline hyclate 100 mg tablet 100 mg PO BID 21 Days Qty: 42 0RF Rx Instructions: May use tablet or capsule, or monohydrate. methylprednisolone [Medrol (Tyree)] 4 mg tablets,dose pack See Rx Instructions .ROUTE .COMPLEX Qty: 21 0RF Rx Instructions: As Per Packaging Referrals Referrals: [facility] [Primary Care Provider] -
[2024-05-07 21:00] LABS: Basophils # (auto) 0.01 K/uL (0.00-0.20); Basophils % (auto) 0.1 %; Immature Granulocytes # (auto) 0.19 K/uL (0.01-0.20); Immature Granulocytes % (auto) 2.2 %; Lymphocytes % (auto) 3.4 %; Monocytes # (auto) 0.29 K/uL (0.11-0.59); Monocytes % (auto) 3.3 %; Neutrophils # (auto) 8.02 K/uL (1.40-6.50)
[2024-05-07 21:07] LABS: INR 0.9 (0.9-1.1); Prothrombin Time 10.2 Seconds (9.0-12.0)
[2024-05-07] MEDS: ALBUT/IPRATROP 3MG/0.5MG NEB 3 ML VIAL NEB ONE (21:10)
[2024-05-07 21:12] LABS: Appearance Urine Clear (Clear); Bilirubin Urine Negative (Negative); Blood Urine Negative (Negative); Color Urine Yellow; Glucose Urine UA Negative (Negative); Ketones Urine Negative (Negative); Leukocyte Esterase Urine Negative (Negative); Nitrite Urine Negative (Negative); Protein Urine Negative (Negative); Specific Gravity Urine 1.008 (1.000-1.030); Urobilinogen Urine Negative (Negative); pH Urine 5.5 (4.5-7.5)
[2024-05-07] MEDS: MAGNESIUM SULFATE / D5W 1 GM/100 ML BAG IV STA (21:26)
[2024-05-07 21:49] LABS: Base Excess VBG 3.5 mEq/L; HCO3 VBG 29 mmol/L; Oxygen Saturation VBG 98.7 %; PCO2 VBG 47 mmHg (38-50); PO2 VBG 104 mmHg
[2024-05-07 22:21] LABS: Adenovirus PCR Not Detected (NotDetected); Bordetella parapertussis PCR Not Detected (NotDetected); Bordetella pertussis PCR Not Detected (NotDetected); Chlamydia pneumoniae PCR Not Detected (NotDetected); Coronavirus 229E PCR Not Detected (NotDetected); Coronavirus CoV-2 (COVID19)PCR Not Detected (NotDetected); Coronavirus HKU1 PCR Not Detected (NotDetected); Coronavirus NL63 PCR Not Detected (NotDetected); Coronavirus OC43PCR Not Detected (NotDetected); Human Metapneumovirus PCR Not Detected (NotDetected); Influenza A PCR Not Detected (NotDetected); Influenza B PCR Not Detected (NotDetected); Mycoplasma pneumoniae PCR Not Detected (NotDetected); Parainfluenza Virus 1 PCR Not Detected (NotDetected); Parainfluenza Virus 2 PCR Not Detected (NotDetected); Parainfluenza Virus 3 PCR Not Detected (NotDetected); Parainfluenza Virus 4 PCR Not Detected (NotDetected); Respiratory Syncytial VirusPCR Not Detected (NotDetected); Rhinovirus/Enterovirus PCR Not Detected (NotDetected)
[2024-05-07] MEDS: methylPREDNISolone 125 MG/2 ML VIAL IV STA (22:38)
--- NOTE | 2024-05-07 23:08 | History & Physical Report ---
Date of Service May 07, 2024 Assessment & Plan (1) Acute exacerbation of chronic obstructive pulmonary disease: Plan: 78yo female with severe COPD, chronic hypoxic respiratory failure on 3L O2 continuous presents from [facility] with acute on chronic hypoxemic respiratory failure likely secondary to COPD exacerbation. Patient with one day of progressive SOB. Hypoxic in the 70's - 80's on NC prior to arrival. On rescue BiPAP initially but has since been transitioned back to nasal cannula and appears comfortable No obvious infection -Admit to medical with telemetry -BiPAP as needed -Continue supplemental O2 - goal saturation 88-92% -DuoNeb q 4 hours -Albuterol q 2 hours as needed -Solumedrol 30mg IV BID -Azithromycin -Continue Budesonide and Arfomoterol -Incentive spirometry and flutter valve -Continue Guaifenesin Discussion with patient's daughter, Katrina Nichols ([phone]) Patient's sister had been living at [facility] and yesterday which may understandably be contributing to patient's current symptoms Patient is DNR/DNI with no desired escalation of care. She had been on Hospice in the past, however, daughter voiced some frustration. She states that patient had some confusion/delirium with a UTI and was being given end-of-life care/morphine for this issue rather than treatment for the infection. Daughter does not want to keep sending her mother to the hospital and wants her to be comfortable but does not desire hospice services at this time. Ideally, daughter would like "hospice type care" when it involves patient's pulmonary status but wants other conditions, such as infections, to be treated if possible. Plan Chronic Medical Conditions: Hyperlipidemia - chronic. stable -Continue Rosuvastatin 20mg po qHS GERD - chronic. stable -Continue Protonix 40mg PO BID -Continue Pepcid Depression/Anxiety - chronic. stable -Continue escitalopram 5mg po qAM -Continue Clonazepam BID home dosing -Continue Buspiraone BID History of Present Illness Chief Complaint: shortness of breath Primary Care Provider: [facility] Ana Nichols is a 78yo female with history of severe COPD, chronic hypoxic respiratory failure on 3L of O2 by SC continuous, CAD, HTN, HLP and prior CVA. Patient presents this evening from [facility] after developing SOB x 1 day. Noted to be tachypneic with accessory muscle use and grunting, hypoxic at [facility] with saturations in the low 70's. She was administered a nebulizer treatment at [facility] with some improvement. Also with episodic confusion. 911 was called. EMS noted respiratory distress by EMS with saturations 73% on NC. Upon arrival to the ER patient in respiratory distress with RR of 30, saturating 92% on NC 4L She was placed on BiPAP for increased work of breathing and hypoxia - 10/5 30% FiO2 with adequate tidal volumes ER Course: Mg x 1gm Solumedrol 80mg IV Albuterol 12mL neb Allergies Allergy/AdvReac Type Severity Reaction Status Date / Time metoclopramide Allergy Severe "lungs Verified 05/07/24 23:53 collapsed" cortisone Allergy Intermediate swelling Verified 05/07/24 23:53 salicylates Allergy Intermediate caused Verified 05/07/24 23:53 bleeding, can take EC aspirin Corticosteroids AdvReac Intermediate swelling Verified 05/07/24 23:53 (Glucocorticoids) Home Medications Medication Instructions Recorded Confirmed Type Saccharomyces boulardii 250 mg 250 mg PO BID 03/08/24 05/07/24 History capsule (Florastor) acetaminophen 325 mg tablet 650 mg PO Q6H PRN Fever Or Pain 03/08/24 05/07/24 History (Tylenol) albuterol sulfate 2.5 mg/3 mL 2.5 mg continuous nebulization Q2H 03/08/24 05/07/24 History (0.083 %) solution for nebulization PRN COPD albuterol sulfate 90 mcg/actuation 2 puff inhalation Q12H PRN COPD 03/08/24 05/07/24 History aerosol inhaler arformoterol 15 mcg/2 mL solution 2 ml inhalation BID COPD 03/08/24 05/07/24 History for nebulization (Brovana) ascorbic acid (vitamin C) 1,000 mg 1 g PO QAM 03/08/24 05/07/24 History tablet (Vitamin C) budesonide 0.5 mg/2 mL suspension 0.5 mg inhalation BID COPD 03/08/24 05/07/24 History for nebulization buspirone 7.5 mg tablet 7.5 mg PO BID 03/08/24 05/07/24 History clonazepam 0.5 mg tablet 0.5 mg PO AMHS ANXIETY 03/08/24 05/07/24 History clopidogrel 75 mg tablet (Plavix) 75 mg PO QAM 03/08/24 05/07/24 History cyanocobalamin (vitamin B-12) 500 500 mcg PO QAM 03/08/24 05/07/24 History mcg tablet (Vitamin B-12) diclofenac sodium 1 % topical gel See Rx Instructions .Route .COMPLEX 03/08/24 05/07/24 History escitalopram oxalate 5 mg tablet 5 mg PO QAM 03/08/24 05/07/24 History famotidine 20 mg tablet 20 mg PO BID GERD 03/08/24 05/07/24 History fluticasone propionate 50 2 spray intranasal QAM 03/08/24 05/07/24 History mcg/actuation nasal spray,suspension gabapentin 300 mg capsule 300 mg PO TID 03/08/24 05/07/24 History guaifenesin 600 mg tablet, 600 mg PO BID cough 03/08/24 05/07/24 History extended release 12 hr (Mucinex) ipratropium 0.5 mg-albuterol 3 mg 3 ml inhalation QID COPD 03/08/24 05/07/24 History (2.5 mg base)/3 mL nebulization soln loperamide 2 mg tablet (Imodium 2 mg PO Q2H PRN Diarrhea 03/08/24 05/07/24 History A-D) loratadine 10 mg tablet 10 mg PO QAM 03/08/24 05/07/24 History methenamine hippurate 1 gram tablet 1 g PO BID UTI Prevention 03/08/24 05/07/24 History nystatin 100,000 unit/mL oral 5 ml PO QID Thrush 03/08/24 05/07/24 History suspension ondansetron HCl 4 mg tablet 4 mg PO Q6H PRN Nausea 03/08/24 05/07/24 History oxycodone 5 mg tablet 5 mg PO Q4H PRN Pain 5-10 03/08/24 05/07/24 History oxymetazoline 0.05 % nasal mist 2 spray intranasal Q12H PRN 03/08/24 05/07/24 History (Afrin (oxymetazoline)) Epistaxis pantoprazole 40 mg tablet,delayed 40 mg PO BID GERD 03/08/24 05/07/24 History release phenazopyridine 200 mg tablet 200 mg PO Q8H PRN Bladder Spasms 03/08/24 05/07/24 History (Pyridium) prednisone 10 mg tablet 10 mg PO .TAPER DIRECTED COPD 03/08/24 05/07/24 History rosuvastatin 20 mg tablet 20 mg PO HS HLD 03/08/24 05/07/24 History bisacodyl 10 mg rectal suppository 10 mg SD DAILY PRN Constipation 05/06/24 05/07/24 History (Dulcolax (bisacodyl)) cholecalciferol (vitamin D3) 1,250 1,250 mcg PO WK 05/06/24 05/07/24 History mcg (50,000 unit) capsule cholecalciferol (vitamin D3) 50 50 mcg PO DAILY 05/06/24 05/07/24 History mcg (2,000 unit) tablet (Vitamin D3) doxycycline hyclate 100 mg tablet 100 mg PO BID 21 days #42 tabs 05/06/24 05/07/24 Rx fentanyl 25 mcg/hr transdermal 25 mcg transdermal Q72H Chronic 05/06/24 05/07/24 History patch Pain magnesium hydroxide 400 mg/5 mL 30 ml PO DAILY PRN Constipation 05/06/24 05/07/24 History oral suspension (Milk of Magnesia) methylprednisolone 4 mg tablets in See Rx Instructions .Route 05/06/24 05/07/24 Rx a dose pack (Medrol (Tyree)) .COMPLEX #21 ea Past Med/Surg History Problem List Acute dyspnea (Acute) Acute exacerbation of chronic obstructive pulmonary disease (Acute) Acute hypoxemic respiratory failure (Acute) Complicated acute bronchitis (Acute) S/P ORIF (open reduction internal fixation) fracture Displaced fracture of right femoral neck Right femoral fracture (Acute) Pyelonephritis (Acute) Pyelitis Hypoxia (Acute) Discharge planning issues DVT prophylaxis GERD (gastroesophageal reflux disease) Anxiety Change in mental status (Acute) Urinary tract infection (Acute) Neuroforaminal stenosis of lumbar spine Hand abrasion Back pain Lumbar radiculopathy Greater trochanteric pain syndrome Leg pain, right COPD (chronic obstructive pulmonary disease) (Acute) Abdominal pain (Acute) Abnormal involuntary movements Hypophosphatemia Acute exacerbation of chronic obstructive pulmonary disease (COPD) Acute exacerbation of COPD with asthma Dysphagia Encounter for pre-operative examination Anemia GI bleed COPD (chronic obstructive pulmonary disease) "on home O2" Osteoporosis HTN (hypertension) Peripheral vascular disease Hyperlipidemia GERD (gastroesophageal reflux disease) Anxiety CAD (coronary artery disease) "Minimal non-obstructive CAD by left heart cath 2007" On 12/02/14 16:15 Jaye Nye wrote "Minimal non-obstructive CAD by left heart catherization 2007" Trigger finger History of appendectomy Arthritis of left knee Dysphagia Intractable nausea and vomiting Leg pain, left Weakness Weakness Dysphagia Asymptomatic bilateral carotid artery stenosis "s/p bilateral carotid endarterectomy" History of esophageal stricture Medical History Opiate overdose Acute CVA (cerebrovascular accident) TIA (transient ischemic attack) [facility] resident resident of [facility] History of GI bleed History of anemia History of esophageal dilatation Diarrhea Difficulty swallowing PVD (peripheral vascular disease) Osteoporosis Arthritis Anxiety SOB (shortness of breath) on exertion Chronic obstructive pulmonary disease OXYGEN 3-4 L/MIN CONTINUOUSLY CAD (coronary artery disease) F/U DR Angélica LEONARDO Hyperlipidemia Hypertension Surgical History Hx of esophagogastroduodenoscopy "EGD 12/04/11 Dr. Woods- large hiatal hernia. stomach and small intestine were normal. esophagus dilated, small tear in the UES" History of left heart catheterization H/O colonoscopy "Colonoscopy 09/06/13 Dr. Woods- sigmoid diverticulosis, internal hemorrhoids, no polyps" On 12/02/14 16:04 Jaye Nye wrote "2012-adenomatous polyp" Status post insertion of iliac artery stent "Right common iliac artery stent and right external iliac artery [place] 06/22/[place] [facility] [place] History of hemorrhoidectomy History of knee surgery S/p bilateral carotid endarterectomy H/O vascular surgery RIGHT ILIAC ARTERY STENT PLACEMENT H/O knee surgery History of appendectomy History of esophagogastroduodenoscopy (EGD) History of colonoscopy History of cataract surgery R/L H/O hemorrhoidectomy H/O carotid endarterectomy R/L History of cardiac cath NO STENTS Family History Other No family history of adverse response to anesthesia Social History Smoking Status: Former smoker Age Started Using Tobacco: 19; packs per day: 2; Cigarettes Per Day: 5-10 CIG a day ADVISED; Do You Dip or Chew Tobacco: No; Hx Alcohol Use: No Hx Substance Use: No Preferred Language: Chinese Communication Ability: Effective Communication Ability Comment: confused Hand Weaver Required: No Beliefs That Will Affect Care: None marital status: / Current Living Situation: Intermediate Current Living Situation Comment: [facility] How many Children do You have: 1 Feels Safe at Home: Yes Assistive Devices: Walker and Wheelchair Review of Systems Review of Systems: All systems reviewed & are unremarkable except as noted in HPI & below Physical Exam Physical Exam: General: patient with BiPAP in place, able to answer questions appropriately and follow commands Skin: warm, dry, intact, no rashes or lesions HEENT: NC/AT, PERRL, EOMI, anicteric sclera, conjunctiva without injection, external ear normal to inspection and nontender, nares patent, moist mucus mem branes, dentition intact, no oropharyngeal lesions, neck supple, trachea midline, no LAD, no thyromegaly, no JVD Heart: +S1/S2, regular, tachycardic, no m/r/g Lungs: patient tachypneic with BiPAP in place, no use of accessory muscles at this time, diffuse wheezing with prolonged expiratory phase, no rhonchi or rales Abd: +BS, soft, NT/ND, no masses/organomegaly/ascites Ext: warm, 2+ pulses in UE/LE bilaterally, no clubbing/cyanosis or edema Neuro: nonfocal, patient AA&O x 2 (self and location), speech intact, no facial droop, moving all extremities on command with equal strength 5/5 Results & Data Results & Data Vital Signs (Past 12 Hours) Vital Signs Temp Pulse Pulse Resp BP BP Pulse Ox 05/07/24 22:19 106 H 22 100 05/07/24 21:20 93 H 16 99 05/07/24 21:20 99 H 17 98 05/07/24 21:00 107 H 25 H 143/113 H 93 05/07/24 20:45 115 H 25 H 165/84 H 93 05/07/24 19:55 96 H 05/07/24 19:45 127 H 34 H 143/69 H 92 05/07/24 19:34 37.1 C 108 H 30 H 143/69 H 92 O2 Del Method O2 Flow Rate FiO2 05/07/24 22:19 30 05/07/24 21:20 30 05/07/24 21:20 BiPAP 30 05/07/24 21:00 Nasal Cannula 4 05/07/24 20:45 Nasal Cannula 4 05/07/24 19:55 05/07/24 19:45 Nasal Cannula 4 05/07/24 19:34 Nasal Cannula 4 Laboratory Results Laboratory Results WBC 8.81 K/ul (4.8-10.8) 05/07/24 19:55 RBC 3.71 M/uL (4.20-5.40) L 05/07/24 19:55 Hgb 10.9 g/dl (12.0-16.0) L 05/07/24 19:55 Hct 33.9 % (37.0-47.0) L 05/07/24 19:55 MCV 91.4 fL (80.0-100.0) 05/07/24 19:55 MCH 29.4 pg (25.0-34.0) 05/07/24 19:55 MCHC 32.2 g/dL (32.0-36.0) 05/07/24 19:55 RDW Std Deviation 47.7 fL (36.4-46.3) H 05/07/24 19:55 RDW Coeff of Renetta 14.2 % (11.5-14.5) 05/07/24 19:55 Plt Count 307 K/uL (130-400) 05/07/24 19:55 MPV 9.9 fL (9.4-12.4) 05/07/24 19:55 Immature Gran % (Auto) 2.2 % 05/07/24 19:55 Neut % (Auto) 91.0 % 05/07/24 19:55 Lymph % (Auto) 3.4 % 05/07/24 19:55 [place] % (Auto) 3.3 % 05/07/24 19:55 Eos % (Auto) 0.0 % 05/07/24 19:55 Baso % (Auto) 0.1 % 05/07/24 19:55 Neut # (Auto) 8.02 K/uL (1.40-6.50) H 05/07/24 19:55 Lymph # (Auto) 0.30 K/uL (1.20-3.40) L 05/07/24 19:55 [place] # (Auto) 0.29 K/uL (0.11-0.59) 05/07/24 19:55 Eos # (Auto) 0.00 K/uL (0.00-0.50) 05/07/24 19:55 Baso # (Auto) 0.01 K/uL (0.00-0.20) 05/07/24 19:55 Immature Gran # (Auto) 0.19 K/uL (0.01-0.20) 05/07/24 19:55 PT 10.2 Seconds (9.0-12.0) 05/07/24 19:55 INR 0.9 (0.9-1.1) 05/07/24 19:55 VBG pH 7.40 (7.36-7.41) 05/07/24 21:41 VBG pCO2 47 mmHg (38-50) 05/07/24 21:41 VBG pO2 104 mmHg 05/07/24 21:41 VBG HCO3 29 mmol/L 05/07/24 21:41 VBG O2 Saturation 98.7 % 05/07/24 21:41 VBG Base Excess 3.5 mEq/L 05/07/24 21:41 Sodium 133 mmol/L (136-145) L 05/07/24 19:55 Potassium 3.8 mmol/L (3.5-5.1) 05/07/24 19:55 Chloride 95 mmol/L (98-107) L 05/07/24 19:55 Carbon Dioxide 29 mmol/L (21-32) 05/07/24 19:55 Anion Gap 9 (3-11) 05/07/24 19:55 BUN 20 mg/dl (6-23) 05/07/24 19:55 Creatinine 0.79 mg/dl (0.6-1.2) 05/07/24 19:55 Est Cr Clr Drug Dosing Not Reportable 05/07/24 19:55 Est GFR ( Amer) 82.5 ml/min 05/07/24 19:55 Est GFR (Non-Af Amer) 71.2 ml/min 05/07/24 19:55 BUN/Creatinine Ratio 25.3 (10-20) H 05/07/24 19:55 Glucose 158 mg/dl (70-99(Fasting)) H 05/07/24 19:55 Calcium 9.1 mg/dl (8.6-10.3) 05/07/24 19:55 Magnesium 1.9 mg/dl (1.7-2.4) 05/07/24 19:55 Total Bilirubin 0.3 mg/dl (0.2-1.0) 05/07/24 19:55 AST 16 U/L (13-39) 05/07/24 19:55 ALT 13 U/L (7-52) 05/07/24 19:55 Alkaline Phosphatase 73 U/L (34-104) 05/07/24 19:55 Troponin I High Sens 11.6 pg/ml (0-14) 05/07/24 19:55 B-Natriuretic Peptide 42 pg/ml (0-100) 05/07/24 19:55 Total Protein 6.0 gm/dl (6.0-8.3) 05/07/24 19:55 Albumin 3.8 gm/dl (3.4-5.0) 05/07/24 19:55 Globulin 2.2 gm/dl (2.5-4.0) L 05/07/24 19:55 Albumin/Globulin Ratio 1.7 (0.9-2) 05/07/24 19:55 Urine Color Yellow 05/07/24 20:50 Urine Appearance Clear (Clear) 05/07/24 20:50 Urine pH 5.5 (4.5-7.5) 05/07/24 20:50 Ur Specific [place] 1.008 (1.000-1.030) 05/07/24 20:50 Urine Protein Negative (Negative) 05/07/24 20:50 Urine Glucose (UA) Negative (Negative) 05/07/24 20:50 Urine Ketones Negative (Negative) 05/07/24 20:50 Urine Blood Negative (Negative) 05/07/24 20:50 Urine Nitrite Negative (Negative) 05/07/24 20:50 Urine Bilirubin Negative (Negative) 05/07/24 20:50 Urine Urobilinogen Negative (Negative) 05/07/24 20:50 Ur Leukocyte Esterase Negative (Negative) 05/07/24 20:50 Adenovirus (PCR) Not Detected (NotDetected) 05/07/24 21:26 B. pertussis DNA (PCR) Not Detected (NotDetected) 05/07/24 21:26 B.parapertussis DNA PCR Not Detected (NotDetected) 05/07/24 21:26 C. pneumoniae DNA (PCR) Not Detected (NotDetected) 05/07/24 21:26 Coronavirus OC43 (PCR) Not Detected (NotDetected) 05/07/24 21:26 Coronavirus HKU1 (PCR) Not Detected (NotDetected) 05/07/24 21:26 Coronavirus 229E (PCR) Not Detected (NotDetected) 05/07/24 21:26 SARS-CoV-2 (PCR) Not Detected (NotDetected) 05/07/24 21:26 Coronavirus NL63 (PCR) Not Detected (NotDetected) 05/07/24 21:26 Human Metapneumovir PCR Not Detected (NotDetected) 05/07/24 21:26 Influenza Type A (PCR) Not Detected (NotDetected) 05/07/24 21:26 Influenza Type B (PCR) Not Detected (NotDetected) 05/07/24 21:26 M. pneumoniae (PCR) Not Detected (NotDetected) 05/07/24 21:26 Parainfluenza 1 (PCR) Not Detected (NotDetected) 05/07/24 21:26 Parainfluenza 2 (PCR) Not Detected (NotDetected) 05/07/24 21:26 Parainfluenza 3 (PCR) Not Detected (NotDetected) 05/07/24 21:26 Parainfluenza 4 (PCR) Not Detected (NotDetected) 05/07/24 21:26 RSV (PCR) Not Detected (NotDetected) 05/07/24 21:26 Entero/Rhino (PCR) Not Detected (NotDetected) 05/07/24 21:26 Diagnostic Findings CXR per my interpretation with flattening of diaphragm, no obvious infiltrate, edema or pneumothorax CTA of the chest performed - read is pending ECG Additional Comments: Ordered Code Status & VTE Plan VTE Prophylaxis Plan VTE Prophylaxis will be ordered: Yes PG Care Time/CCT Total # of Minutes Spent Total Time Spent with Patient: Total time spent is greater than 50% in coordination of care (as documented) at patient's floor/unit and/or counseling patient: Coding Level of Care Code 72237 INT INP/OBS CARE 2/55MIN Diagnoses Acute exacerbation of chronic obstructive pulmonary disease J44.1
[2024-05-07] MEDS: OPTIRAY 320 100ml IV ONE (23:14)
--- NOTE | 2024-05-08 00:51 | CT Scan Report ---
Exam(s): CTA CHEST IV Amt: 118 ml optiray 320 EXAM: CT Angiography Chest With Intravenous Contrast CLINICAL HISTORY: Reason for exam: PE. TECHNIQUE: Axial computed tomographic angiography images of the chest with intravenous contrast. Automated exposure control was utilized for the study. A dose lowering technique was utilized adhering to the principles of ALARA. MIP reconstructed images were created and reviewed. COMPARISON: No relevant prior studies available. FINDINGS: Pulmonary arteries: Unremarkable. No acute pulmonary embolism. Aorta: Atherosclerotic changes of the aorta. No thoracic aortic aneurysm. Lungs: Severe centrilobular emphysema. No mass. No consolidation. Pleural space: Unremarkable. No significant effusion. No pneumothorax. Heart: Unremarkable. No cardiomegaly. No significant pericardial effusion. No evidence of RV dysfunction. Bones/joints: Degenerative changes of the spine. No acute fracture. No dislocation. Soft tissues: Unremarkable. Lymph nodes: Unremarkable. No enlarged lymph nodes. IMPRESSION: 1. No acute pulmonary embolism. 2. Severe centrilobular emphysema. Electronically signed by: Sang Avalos MD 05/08/24 00:50 AM
[2024-05-08] MEDS ORDERED: ONDANSETRON INJ 2 MG/ML 2 ML VIAL IV PRN (01:32)
[2024-05-08] MEDS ORDERED: oxyCODONE HCL IR 5 MG TAB (IMMEDIATE RELEASE) PO PRN (01:32)
[2024-05-08] MEDS ORDERED: ALBUTEROL 0.083% NEBU SOLN 3 ML VIAL INH PRN (01:32)
[2024-05-08] MEDS ORDERED: ACETAMINOPHEN 325 MG TAB PO PRN (01:32)
[2024-05-08] MEDS ORDERED: OPTIRAY 320 100ml IV PRN (01:46)
[2024-05-08] MEDS: AZITHROMYCIN 500 MG in DEXTROSE 5% 250 ML IV STA (01:57)
[2024-05-08] MEDS: ALBUT/IPRATROP 3MG/0.5MG NEB 3 ML VIAL NEB SCH (02:01)
[2024-05-08] MEDS: ENOXAPARIN INJ 30 MG/0.3 ML SYR SQ SCH (05:04)
--- NOTE | 2024-05-08 06:42 | XRay Report ---
XR chest 1V portable CLINICAL HISTORY: Dyspnea TECHNIQUE: Single frontal radiograph of the chest was obtained. Comparison: Comparison is made to chest radiographs 05/06/2024 FINDINGS: No lines and tubes are seen. Calcified aortic knob is seen. Atelectasis is in the right lung base. Br onchial wall thickening is seen. No evidence of pleural effusion or pneumothorax. IMPRESSION: Peribronchial thickening is seen compatible with infectious/inflammatory airways disease or viral pne umonia. No lamberto consolidation is seen. ACT 112: Negative or not required by law. Electronically signed by: Ritesh Izquierdo M.D. 05/08/2024 6:40 AM
[2024-05-08] MEDS: BUDESONIDE 0.5 MG/2 ML VIAL (PULMICORT) INH SCH (07:07)
[2024-05-08] MEDS: FORMOTEROL 20 MCG/2 ML VIAL INH SCH (07:07)
--- NOTE | 2024-05-08 08:09 | Hospitalist Progress Note ---
Date of Service May 08, 2024 Assessment & Plan (1) Acute exacerbation of chronic obstructive pulmonary disease: Plan: 78yo female with severe COPD, chronic hypoxic respiratory failure on 3L O2 continuous presents from [facility] with acute on chronic hypoxemic respiratory failure likely secondary to COPD exacerbation. Patient with one day of progressive SOB. Hypoxic in the 70's - 80's on NC prior to arrival. On rescue BiPAP initially but has since been transitioned back to nasal cannula and appears comfortable No obvious infection -Admit to medical with telemetry -BiPAP as needed -Continue supplemental O2 - goal saturation 88-92% -DuoNeb q 4 hours -Albuterol q 2 hours as needed -Solumedrol 30mg IV BID -Azithromycin -Continue Budesonide and Arfomoterol -Incentive spirometry and flutter valve -Continue Guaifenesin Discussion with patient's daughter, Kartina Nichols ([phone]) Patient's sister had been living at [facility] and yesterday which may understandably be contributing to patient's current symptoms Patient is DNR/DNI with no desired escalation of care. She had been on Hospice in the past, however, daughter voiced some frustration. She states that patient had some confusion/delirium with a UTI and was being given end-of-life care/morphine for this issue rather than treatment for the infection. Daughter does not want to keep sending her mother to the hospital and wants her to be comfortable but does not desire hospice services at this time. Ideally, daughter would like "hospice type care" when it involves patient's pulmonary status but wants other conditions, such as infections, to be treated if possible. Plan Chronic Medical Conditions: Hyperlipidemia - chronic. stable -Continue Rosuvastatin 20mg po qHS GERD - chronic. stable -Continue Protonix 40mg PO BID -Continue Pepcid Depression/Anxiety - chronic. stable -Continue escitalopram 5mg po qAM -Continue Clonazepam BID home dosing -Continue Buspiraone BID Admission and Anticipated Discharge Date Admission Date: May 07, 2024 Results & Data Results & Data Vital Signs (Past 12 Hours) Vital Signs Temp Pulse Pulse Resp BP BP Pulse Ox 05/08/24 07:43 37 C 108 H 16 117/56 L 92 05/08/24 07:17 95 H 05/08/24 07:08 102 H 18 86 L 05/08/24 03:07 37.0 C 100 H 18 142/69 H 96 05/08/24 02:03 100 H 18 95 05/08/24 01:37 05/08/24 01:37 36.8 C 101 H 20 156/69 H 97 05/08/24 01:16 103 H 05/08/24 00:30 97 H 24 118/58 L 96 05/07/24 23:52 102 H 05/07/24 23:00 109 H 21 117/80 100 05/07/24 22:19 106 H 22 100 05/07/24 22:00 106 H 16 108/76 94 05/07/24 21:20 93 H 16 99 05/07/24 21:20 99 H 17 98 05/07/24 21:00 107 H 25 H 143/113 H 93 05/07/24 20:45 115 H 25 H 165/84 H 93 O2 Del Method O2 Flow Rate FiO2 05/08/24 07:43 Nasal Cannula 2 05/08/24 07:17 05/08/24 07:08 Room Air 05/08/24 03:07 Nasal Cannula 3 05/08/24 02:03 Nasal Cannula 4 05/08/24 01:37 Nasal Cannula 4 05/08/24 01:37 Nasal Cannula 4 05/08/24 01:16 05/08/24 00:30 Nasal Cannula 4 05/07/24 23:52 05/07/24 23:00 BiPAP 05/07/24 22:19 30 05/07/24 22:00 BiPAP 05/07/24 21:20 30 05/07/24 21:20 BiPAP 30 05/07/24 21:00 Nasal Cannula 4 05/07/24 20:45 Nasal Cannula 4
[2024-05-08] MEDS: FAMOTIDINE 20 MG TAB PO SCH (08:32)
[2024-05-08] MEDS: LORATADINE 10 MG TAB PO SCH (08:33)
[2024-05-08] MEDS: METHENAMINE HIPPURATE 1 GM TAB PO SCH (08:33)
[2024-05-08] MEDS: PANTOprazole 40 MG TAB PO SCH (08:33)
[2024-05-08] MEDS: GABAPENTIN 300 MG CAP PO SCH (08:34)
[2024-05-08] MEDS: ESCITALOPRAM OXALATE 10 MG TAB PO SCH (08:34)
[2024-05-08] MEDS: guaiFENesin 600 MG TABCR PO SCH (08:34)
[2024-05-08] MEDS: FLUTICASONE PROPIONATE NA SPR 16 GM BTL SCH (08:35)
[2024-05-08] MEDS: busPIRone 7.5 MG TAB PO SCH (08:35)
[2024-05-08] MEDS: CLOPIDOGREL BISULFATE 75 MG TAB PO SCH (08:35)
[2024-05-08] MEDS: methylPREDNISolone 30 MG in SYRINGE 0 ML IV SCH (08:36)
[2024-05-08] MEDS: CHECK fentaNYL PATCH PLACEMENT SCH (08:36)
[2024-05-08] MEDS: fentaNYL 25 MCG/HR TDSY TD SCH (08:46)
[2024-05-08] MEDS: clonazePAM 0.5 MG TAB PO SCH (08:46)
[2024-05-08 09:04] LABS: Hemoglobin 10.9 g/dl (12.0-16.0); Mean Corpuscular Hemoglobin 29.1 pg (25.0-34.0); Mean Corpuscular Hgb Conc 32.1 g/dL (32.0-36.0); Mean Corpuscular Volume 90.7 fL (80.0-100.0); Mean Platelet Volume 9.7 fL (9.4-12.4); Platelet Count 322 K/uL (130-400); RDW Coefficient of Variation 14.6 % (11.5-14.5); RDW Standard Deviation 47.9 fL (36.4-46.3); Red Blood Count 3.75 M/uL (4.20-5.40); White Blood Count 14.96 K/ul (4.8-10.8)
[2024-05-08 09:12] LABS: BUN Creatinine Ratio 22.1 (10-20); Calcium 8.9 mg/dl (8.6-10.3); Creatinine Clr Calc Pharmacy 48.2 ml/min; Est GFR (African American) 96.4 ml/min; Est GFR (Non-African American) 83.2 ml/min
[2024-05-08 09:22] LABS: Basophils # (auto) 0.01 K/uL (0.00-0.20); Basophils % (auto) 0.1 %; Immature Granulocytes # (auto) 0.17 K/uL (0.01-0.20); Immature Granulocytes % (auto) 1.1 %; Lymphocytes % (auto) 3.3 %; Monocytes # (auto) 0.48 K/uL (0.11-0.59); Monocytes % (auto) 3.2 %; Neutrophils % (auto) 92.3 %
--- NOTE | 2024-05-08 09:29 | Medical Student Progress Note ---
Date of Service May 08, 2024 Assessment & Plan (1) Acute exacerbation of chronic obstructive pulmonary disease: Plan: 78y/o female with history of severe COPD presenting with acute on chronic hypoxemic respiratory failure likely secondary to COPD exacerbation. No obvious infection as patient is afebrile, normal white blood cell count, and negative evidence of infection/PNA on chest radiograph. 1. Acute on chronic COPD exacerbation: Status: acute on chronic, stable. -Continue supplemental O2 with goal saturation 88-92% -DuoNeb q4hrs -Albuterol q2hrs prn -Solumedrol 30mg IV BID -Azithromycin 250mg IV -Continue Budesonide and Arfomoterol -Continue Guaifenesin -Incentive spirometry and flutter valve Plan 2. Hyperlipidemia: Status: chronic, stable. -Continue Rosuvastatin 20mg po qHS 3. GERD: Status: chronic, stable. -Continue Protonix 40mg PO BID -Continue Pepcid 4. Depression/Anxiety: Stauts: chronic, stable. -Continue escitalopram 5mg po qAM -Continue Clonazepam BID home dosing -Continue Buspiraone BID Admission and Anticipated Discharge Date Admission Date: May 07, 2024 Subjective Patient is a 78y/o female with a past medical history of COPD on chronic 2L nasal cannula at home, CAD, hypertension, hyperlipidemia, GERD, depression, and anxiety who presented to the ED on 05/06/24 for increasing shortness of breath. At that time the patient had a mild leukocytosis and chest radiograph showed evidence of emphysematous changes. Patient was given DuoNeb and Decadron in the ED and discharged home on doxycycline and methylprednisone. Patient presented to ED again on 05/07/24 for worsening shortness of breath and satting 72-82 on 3L nasal cannula at home. Chest radiograph at this time showed peribronchial thickening without evidence of consolidation. CTA showed severe centrilobular emphysema with no evidence of PE. There were no acute events overnight. The patient states she is feeling better. She states shortness of breath has improved from yesterday. Patient denies fever, chills, CP, palpitations, abdominal pain, n/v, constipation, diarrhea, headache, lightheadedness, or dizziness. Review of Systems Review of Systems: As per above. Physical Exam Constitutional: Patient sitting upright in bed. Alert and oriented, in no acute distress. Eyes: PEERL, EOMI, anicteric sclera, no conjunctival injection. Respiratory: Diminished breath sounds bilaterally throughout. No use of accessory muscles. Diffuse prolonged end expiratory wheezing. No rhonchi or rales. Cardiovascular: Regular rate and rhythm. No murmurs, rubs, or gallops. Gastrointestinal (Abdomen): Normal bowel sounds. Abdomen soft and nondistended. No tenderness to palpation. No hepatosplenomegaly. Neurologic: CN II-XII intact. No focal deficits. Results & Data Vital Signs (Past 12 Hours) Vital Signs Temp Pulse Pulse Resp BP BP Pulse Ox 05/08/24 07:43 37 C 108 H 16 117/56 L 92 05/08/24 07:17 95 H 05/08/24 07:08 102 H 18 86 L 05/08/24 03:07 37.0 C 100 H 18 142/69 H 96 05/08/24 02:03 100 H 18 95 05/08/24 01:37 05/08/24 01:37 36.8 C 101 H 20 156/69 H 97 05/08/24 01:16 103 H 05/08/24 00:30 97 H 24 118/58 L 96 05/07/24 23:52 102 H 05/07/24 23:00 109 H 21 117/80 100 05/07/24 22:19 106 H 22 100 05/07/24 22:00 106 H 16 108/76 94 05/07/24 21:20 93 H 16 99 05/07/24 21:20 99 H 17 98 05/07/24 21:00 107 H 25 H 143/113 H 93 O2 Del Method O2 Flow Rate FiO2 05/08/24 07:43 Nasal Cannula 2 05/08/24 07:17 05/08/24 07:08 Room Air 05/08/24 03:07 Nasal Cannula 3 05/08/24 02:03 Nasal Cannula 4 05/08/24 01:37 Nasal Cannula 4 05/08/24 01:37 Nasal Cannula 4 05/08/24 01:16 05/08/24 00:30 Nasal Cannula 4 05/07/24 23:52 05/07/24 23:00 BiPAP 05/07/24 22:19 30 05/07/24 22:00 BiPAP 05/07/24 21:20 30 05/07/24 21:20 BiPAP 30 05/07/24 21:00 Nasal Cannula 4 Resident Activity Tracking Resident Involvement: Resident Care Provided Care Provided: Adult Hospital Medicine Resident Supervision Co-Signing Physician Notes I also saw the patient and confirmed lane portions of the history and exam. I agree with the assessment and plan as written by the student and as summarized below. Patient is doing well on 2L n.c. She reports feeling well and that her SOB is improved today. Exam: Diffuse wheezing, no accessory muscle use RRR, no m/r/g Notable tremor in b/l extremities and jaw Pt cooperative and attentive but struggles to respond verbally to questions or follow complex commands Assessment and plan: Acute exacerbation of chronic obstructive pulmonary disease improved with O2 supplementation, DuoNeb, Albuterol, Solumedrol; pt on azithro; continue tx and plan to d/c when pt back at baseline I personally examined the patient and verified all lane points of history and exam, discussed case, and agree with decision making with Dr Rodgers and Madina Clark MS4 not much meaningful HPI review of systems, although patient appears to be at her baseline at least from whenever I last saw her. Makes eye contact and nods. At least acknowledges that she is breathing better than before. Vitals noted, in general she is awake and alert hard to gauge orientation, although appears to be at her recent baseline. No distress. Lungs coarse wheezing throughout but good air entry no accessory muscle use no respiratory distress on nasal cannula oxygen. COPD exacerbation in the context of severe essentially end-stage COPD with chronic hypoxiaacute on chronic respiratory failure appearing to be due to bronchitis mechanism type COPD exacerbationcontinue current care. Hopefully return to SNF in the near future.
--- NOTE | 2024-05-08 12:25 | Electrocardiogram Report ---
Test Reason : Blood Pressure : / mmHG Vent. Rate : 105 BPM Atrial Rate : 105 BPM P-R Int : 152 ms QRS Dur : 070 ms QT Int : 344 ms P-R-T Axes : 060 015 065 degrees QTc Int : 454 ms Sinus tachycardia with Premature atrial complexes Otherwise normal ECG When compared with ECG of 11-MAR-2024 17:22, No significant change was found Confirmed by Morales Calderon ([id number]) on 05/08/2024 12:25:16 PM [facility] Confirmed By:Morales Calderon
--- NOTE | 2024-05-08 17:02 | Billing Data ---
Date of Service May 08, 2024 Coding Level of Care Code 47361 SUB INP/OBS CARE
[2024-05-08] MEDS: ROSUVASTATIN CALCIUM 20 MG TAB PO SCH (20:42)
[2024-05-08] MEDS: AZITHROMYCIN 250 MG in DEXTROSE 5% 250 ML IV SCH (21:59)
[2024-05-09 07:25] LABS: Basophils # (auto) 0.01 K/uL (0.00-0.20); Basophils % (auto) 0.1 %; Hematocrit (blood only) 30.9 % (37.0-47.0); Hemoglobin 9.8 g/dl (12.0-16.0); Immature Granulocytes # (auto) 0.15 K/uL (0.01-0.20); Immature Granulocytes % (auto) 1.9 %; Lymphocytes # (auto) 0.63 K/uL (1.20-3.40); Lymphocytes % (auto) 7.9 %; Mean Corpuscular Hemoglobin 28.7 pg (25.0-34.0); Mean Corpuscular Hgb Conc 31.7 g/dL (32.0-36.0); Mean Corpuscular Volume 90.6 fL (80.0-100.0); Mean Platelet Volume 9.5 fL (9.4-12.4); Monocytes # (auto) 0.53 K/uL (0.11-0.59); Monocytes % (auto) 6.6 %; Neutrophils # (auto) 6.66 K/uL (1.40-6.50); Neutrophils % (auto) 83.5 %; Platelet Count 276 K/uL (130-400); RDW Coefficient of Variation 14.4 % (11.5-14.5); RDW Standard Deviation 47.8 fL (36.4-46.3); Red Blood Count 3.41 M/uL (4.20-5.40); White Blood Count 7.98 K/ul (4.8-10.8)
--- NOTE | 2024-05-09 09:54 | Medical Student Progress Note ---
Date of Service May 09, 2024 Assessment & Plan (1) Acute exacerbation of chronic obstructive pulmonary disease: Plan: 78y/o female with history of severe COPD presenting with acute on chronic hypoxemic respiratory failure likely secondary to COPD exacerbation. No obvious infection as patient is afebrile, normal white blood cell count, and negative evidence of infection/PNA on chest radiograph. 1. Acute on chronic COPD exacerbation: Status: acute on chronic, stable. -Continue supplemental O2 with goal saturation 88-92% -DuoNeb q4hrs -Albuterol q2hrs prn -Solumedrol 30mg IV BID -Azithromycin 250mg IV -Continue Budesonide and Arfomoterol -Continue Guaifenesin -Incentive spirometry and flutter valve Plan 2. Hyperlipidemia: Status: chronic, stable. -Continue Rosuvastatin 20mg po qHS 3. GERD: Status: chronic, stable. -Continue Protonix 40mg PO BID -Continue Pepcid 4. Depression/Anxiety: Stauts: chronic, stable. -Continue escitalopram 5mg po qAM -Continue Clonazepam BID home dosing -Continue Buspiraone BID Admission and Anticipated Discharge Date Admission Date: May 07, 2024 Subjective There were no acute events overnight. The patient states she is continuing to feel better. She states shortness of breath is about the same as yesterday. Patient denies fever, chills, CP, palpitations, abdominal pain, n/v, constipation, diarrhea, headache, lightheadedness, or dizziness. Review of Systems Review of Systems: As per above. Physical Exam Constitutional: Patient sitting upright in bed. Alert and oriented, in no acute distress. Eyes: PEERL, EOMI, anicteric sclera, no conjunctival injection. Respiratory: Diminished breath sounds bilaterally. No use of accessory muscles. Diffuse prolonged end expiratory wheezing. No rhonchi or rales. Cardiovascular: Regular rate and rhythm. No murmurs, rubs, or gallops. Gastrointestinal (Abdomen): Normal bowel sounds. Abdomen doft and nondistended. No tenderness to palpation. No hepatosplenomegaly. No guarding or rebound. Neurologic: CN II-XII intact. Visible mandibular tremor. Bilateral hand tremors worse with intention. Results & Data Vital Signs (Past 12 Hours) Vital Signs Temp Pulse Pulse Resp BP BP Pulse Ox 05/09/24 08:39 114/67 05/09/24 07:44 36.5 C 88 20 187/79 H 100 05/09/24 07:41 172/62 H 05/09/24 07:15 79 17 97 05/09/24 07:12 93 H 05/09/24 03:55 93 H 18 97 05/09/24 02:42 35.9 C L 90 18 152/69 H 92 05/08/24 23:47 79 18 89 L 05/08/24 22:34 36.3 C L 86 18 167/70 H 90 05/08/24 21:57 88 O2 Del Method O2 Flow Rate 05/09/24 08:39 05/09/24 07:44 Nasal Cannula 3 05/09/24 07:41 05/09/24 07:15 Nasal Cannula 2 05/09/24 07:12 05/09/24 03:55 Nasal Cannula 3 05/09/24 02:42 Nasal Cannula 3 05/08/24 23:47 Nasal Cannula 2 05/08/24 22:34 Nasal Cannula 2 05/08/24 21:57
--- NOTE | 2024-05-09 11:30 | Electrocardiogram Report ---
Test Reason : Blood Pressure : / mmHG Vent. Rate : 091 BPM Atrial Rate : 091 BPM P-R Int : 138 ms QRS Dur : 072 ms QT Int : 372 ms P-R-T Axes : 033 000 042 degrees QTc Int : 457 ms Poor data quality, interpretation may be adversely affected Normal sinus rhythm Incomplete right bundle branch block Nonspecific ST abnormality Abnormal ECG When compared with ECG of 06-MAY-2024 09:48, Premature atrial complexes are no longer Present Confirmed by Morales Calderon ([id number]) on 05/09/2024 11:30:12 AM Referred By: [facility] Confirmed By:Morales Calderon
--- NOTE | 2024-05-09 12:30 | Med Student Discharge Summary ---
Date of Service May 09, 2024 Admission HPI Per Admitting Provider Ana Nichols is a 78yo female with history of severe COPD, chronic hypoxic respiratory failure on 3L of O2 by NC continuous, CAD, HTN, HLP and prior CVA. Patient presents this evening from [facility] after developing SOB x 1 day. Noted to be tachypneic with accessory muscle use and grunting, hypoxic at [facility] with saturations in the low 70's. She was administered a nebulizer treatment at [facility] with some improvement. Also with episodic confusion. 911 was called. EMS noted respiratory distress by EMS with saturations 73% on NC. Upon arrival to the ER patient in respiratory distress with RR of 30, saturating 92% on NC 4L She was placed on BiPAP for increased work of breathing and hypoxia - 10/5 30% FiO2 with adequate tidal volumes ER Course: Mg x 1gm Solumedrol 80mg IV Albuterol 12mL neb Discharge Exam General: Patient sitting upright in bed. Alert and oriented, in no acute distress. Skin: warm, dry, intact, no rashes or lesions HEENT: NC/AT, PERRL, EOMI, anicteric sclera, conjunctiva without injection, external ear normal to inspection and nontender, nares patent, moist mucus membranes, dentition intact, no oropharyngeal lesions, neck supple, trachea midline, no LAD, no thyromegaly, no JVD Heart: +S1/S2, regular, tachycardic, no m/r/g Lungs: patient tachypneic with BiPAP in place, no use of accessory muscles at this time, diffuse wheezing with prolonged expiratory phase, no rhonchi or rales Abd: +BS, soft, NT/ND, no masses/organomegaly/ascites Ext: warm, 2+ pulses in UE/LE bilaterally, no clubbing/cyanosis or edema Neuro: CN II-XII intact. Visible tremor of the mandible. Bilateral tremor of the hands, worse with intention. Discharge Data Consultations 05/07/24 22:28 ED Decision to Admit Stat Hospital Course (1) Acute exacerbation of chronic obstructive pulmonary disease: 78y/o female with history of severe COPD presenting with acute on chronic hypoxemic respiratory failure likely secondary to COPD exacerbation. No obvious infection as patient is afebrile, normal white blood cell count, and negative evidence of infection/PNA on chest radiograph. 1. Acute on chronic COPD exacerbation: Status: acute on chronic, stable. -Continue supplemental O2 with goal saturation 88-92% -DuoNeb q4hrs -Albuterol q2hrs prn -Solumedrol 30mg IV BID -Azithromycin 250mg IV - Budesonide and Arfomoterol - Guaifenesin - Incentive spirometry and flutter valve 2. Hyperlipidemia: Status: chronic, stable. - Rosuvastatin 20mg po qHS 3. GERD: Status: chronic, stable. - Protonix 40mg PO BID - Pepcid 4. Depression/Anxiety: Stauts: chronic, stable. - Escitalopram 5mg po qAM - Clonazepam BID home dosing - Buspiraone BID Plan Patient is a 78y/o female with a past medical history of COPD on chronic 2L nasal cannula, hypertension, hyperlipidemia, and GERD who presented to the ED on 05/07/24 for worsening shortness of breath. Chest radiograph showed peribronchial thickening without evidence of consolidation. CTA showed severe centrilobular emphysema with no evidence of PE. Patient received treatment for acute on chronic exacerbation of COPD with 1-3L supplemental oxygen, DuoNeb, albuterol, solumedrol, azithromycin and at home regimen of Budesonide, Arfomoterol, and Guaifenesin. Patient is to continue using at home 2L nasal cannula and home regimen of Budesonide, Arfomoterol, and Guaifenesin. Patient should take doxycycline 100mg PO BID for 7 days (end 05/26). Patient should take prednisone 60mg PO daily for 5 days (end 05/14). Patient can continue home medication regimen for chronic medical conditions. Discharge Plan Discharge Items Patient Disposition: Transfer Detention Fac Reason For Visit: ACUTE ON CHRONIC HYPOXIC RESPIRATORY FAILURE Discharge Diagnosis: COPD exacerbation Activity: Per Instructions section Non-emergency contact: Primary Care Provider Call non-emergency contact if: you have any medication questions and your symptoms worsen Follow-up/Referrals: [place] [Primary Care Provider] - Diet: Regular Addtl Attending Provider Instructions: Patient was admitted for COPD exacerbation, in the context of severe/end-stage COPD with chronic hypoxia, and was treated with 1-3L supplemental oxygen, DuoNeb, albuterol, solumedrol, and azithromycin, and home doses of Budesonide, Arfomoterol, and Guaifenesin were continued - Status: stable, on home O2 level, infection unlikely (afebrile, WBC count wnl, imaging reassuring) - We added doxycycline 100mg PO BID for 7 days (end 05/26) - We added on prednisone burst 60mg BID for 5d (end 05/14) Other problems - Hyperlipidemia: Continue Rosuvastatin 20mg po qHS - GERD: Continue Protonix 40mg PO BID and Pepcid - Depression/Anxiety: Continue escitalopram 5mg po qAM, clonazepam 0.5mg PO AM,HS, and buspirone 7.5mg po BID - Continue home medication regimen Pending Studies at Discharge: No Stand-Alone Forms: My [facility] Skilled Items Patient informed of condition?: Yes DNR: Yes Discharge Level of Care: Skilled Communicable Disease: No Discharge Prognosis: Stable Lines: None Urinary Catheter: No Medications and DC Order Prescriptions: New prednisone 20 mg tablet 60 mg PO DAILY 3 Days Qty: 9 0RF Rx Instructions: days 11-21 of therapy Continued ascorbic acid (vitamin C) [Vitamin C] 1,000 mg Tablet 1 g PO QAM albuterol sulfate 2.5 mg /3 mL (0.083 %) solution for nebulization 2.5 mg continuous nebulization Q2H PRN (Reason: COPD) clonazepam 0.5 mg tablet 0.5 mg PO AMHS loperamide [Imodium A-D] 2 mg Tablet 2 mg PO Q2H PRN (Reason: Diarrhea) Rx Instructions: administer after each loose stool until symptoms controlled; do not exceed 8 mg per 24 hrs clopidogrel [Plavix] 75 mg Tablet 75 mg PO QAM famotidine 20 mg Tablet 20 mg PO BID cyanocobalamin (vitamin B-12) [Vitamin B-12] 500 mcg Tablet 500 mcg PO QAM gabapentin 300 mg capsule 300 mg PO TID buspirone 7.5 mg Tablet 7.5 mg PO BID budesonide 0.5 mg/2 mL suspension for nebulization 0.5 mg inhalation BID albuterol sulfate 90 mcg/actuation HFA aerosol inhaler 2 puff INHALATION Q12H PRN (Reason: COPD) fluticasone propionate 50 mcg/actuation spray,suspension 2 spray INTRANASAL QAM Afrin (oxymetazoline) 0.05 % Mist 2 spray INTRANASAL Q12H PRN (Reason: Epistaxis) Saccharomyces boulardii [Florastor] 250 mg Capsule 250 mg PO BID Rx Instructions: am,hs escitalopram oxalate 5 mg Tablet 5 mg PO QAM arformoterol [Brovana] 15 mcg/2 mL Solution For Nebulization 2 ml INHALATION BID guaifenesin [Mucinex] 600 mg Tablet Extended Release 12hr 600 mg PO BID nystatin 100,000 unit/mL suspension 5 ml PO QID Rx Instructions: swish & swallow acetaminophen [Tylenol] 325 mg Tablet 650 mg PO Q6H MDD 3g/24hr PRN (Reason: Fever Or Pain) ipratropium-albuterol 0.5 mg-3 mg(2.5 mg base)/3 mL Solution For Nebulization 3 ml INHALATION QID phenazopyridine [Pyridium] 200 mg Tablet 200 mg PO Q8H PRN (Reason: Bladder Spasms) ondansetron HCl 4 mg Tablet 4 mg PO Q6H PRN (Reason: Nausea) methenamine hippurate 1 gram tablet 1 g PO BID pantoprazole 40 mg Tablet,Delayed Release (Dr/Ec) 40 mg PO BID loratadine 10 mg Tablet 10 mg PO QAM oxycodone 5 mg Tablet 5 mg PO Q4H PRN (Reason: Pain 5-10 ) rosuvastatin 20 mg Tablet 20 mg PO HS diclofenac sodium 1 % Gel See Rx Instructions .ROUTE .COMPLEX Rx Instructions: Apply 2g to the shoulders and 4g to the right thigh. Ok to use despite allergy <--- On pt's MAR magnesium hydroxide [Milk of Magnesia] 400 mg/5 mL Suspension 30 ml PO DAILY PRN (Reason: Constipation) Rx Instructions: If no BM for 3 days administer on (7-3 shift) bisacodyl [Dulcolax (bisacodyl)] 10 mg Suppository 10 mg MO DAILY PRN (Reason: Constipation) Rx Instructions: Give on day 3 (3-11 shift) if no BM after MOM fentanyl 25 mcg/hr patch 72 hour 25 mcg transdermal Q72H cholecalciferol (vitamin D3) 1,250 mcg (50,000 unit) Capsule 1,250 mcg PO WK Rx Instructions: Start Date 03/18/24 - End Date 05/13/24 - Only for 8 weeks on Saturdays cholecalciferol (vitamin D3) [Vitamin D3] 50 mcg (2,000 unit) Tablet 50 mcg PO DAILY doxycycline hyclate 100 mg tablet 100 mg PO BID 21 Days Qty: 42 0RF Rx Instructions: for 7 days , 05/13/24 May use tablet or capsule, or monohydrate. methylprednisolone [Medrol (Tyree)] 4 mg tablets,dose pack See Rx Instructions .ROUTE .COMPLEX Qty: 21 0RF Rx Instructions: As Per Packaging Discontinued prednisone 10 mg Tablet 10 mg PO .TAPER DIRECTED Rx Instructions: see taper instructions, on 05/07/24 give 60 mg for 2 days, then decrease to 50 mg for 2 days, 40 mg for 2 days, 30 mg for 2 days etc. Discharge Orders: Discharge Order (Routine); Ordered 05/09/24 Ordered By: Susan Rodgers Admission Data Admit Date/Time: 05/07/24 22:56 Attending Provider: Mark Hampton Admit Provider: Cassy Martínez Primary Care Provider: [place] Other Providers: Cassy Martínez Other Interventions: Discharge Summary Assessment (RN) Last Done: 05/09/24 14:25 Supervising Attestation I personally examined the patient and verified all lane points of history and exam, discussed case, and agree with decision making with Dr Rodgers and Madina Clark MS4 relates feeling like breathing is better. HPI and ROS quite limited due to mentation (which is around current baseline from when i last saw her). Vitals noted, in general she is awake and alert hard to gauge orientation, although appears to be at her recent baseline. No distress. wheezing resolving mostly diminished air entry still faint wheeze good effort COPD exacerbation in the context of severe essentially end-stage COPD with chronic hypoxiaacute on chronic respiratory failure appearing to be due to bronchitis mechanism type COPD exacerbationstable for return to SNF. steroid burst for now (can change to taper if any rebound in symptoms later). otherwise as above Resident Activity Tracking Resident Involvement: Resident Care Provided Care Provided: Adult Hospital Medicine Resident Supervision Co-Signing Physician Notes I also saw the patient and confirmed lane portions of the history and exam. I agree with the assessment and plan as written by the student.
--- NOTE | 2024-05-09 15:13 | Billing Data ---
Date of Service May 09, 2024 Coding Level of Care Code 71535 IN/OBS DISCH 30 MIN/LESS
== END 2024-05-09 15:57 | DRG 190 ==
LOC: ED 19:38 → SUATTDRO 22:56 → 2N 22:56

== ENCOUNTER 2024-08-21 21:40 | Inpatient (IN) ==
[2024-08-21 22:03] LABS: Basophils # (auto) 0.06 K/uL (0.00-0.20); Basophils % (auto) 0.7 %; Eosinophils # (auto) 0.01 K/uL (0.00-0.50); Eosinophils % (auto) 0.1 %; Hematocrit (blood only) 35.9 % (37.0-47.0); Immature Granulocytes # (auto) 0.02 K/uL (0.01-0.20); Immature Granulocytes % (auto) 0.2 %; Mean Corpuscular Hemoglobin 26.4 pg (25.0-34.0); Mean Corpuscular Hgb Conc 30.6 g/dL (32.0-36.0); Mean Corpuscular Volume 86.3 fL (80.0-100.0); Mean Platelet Volume 10.3 fL (9.4-12.4); Monocytes # (auto) 0.93 K/uL (0.11-0.59); Monocytes % (auto) 11.3 %; Neutrophils # (auto) 5.82 K/uL (1.40-6.50); Neutrophils % (auto) 70.7 %; Platelet Count 408 K/uL (130-400); RDW Coefficient of Variation 13.6 % (11.5-14.5); RDW Standard Deviation 42.5 fL (36.4-46.3); Red Blood Count 4.16 M/uL (4.20-5.40); White Blood Count 8.24 K/ul (4.8-10.8)
--- NOTE | 2024-08-21 22:06 | Emergency Department Note ---
History of Present Illness General Chief complaint: Altered Mental Status Stated complaint: ALTERED MENTAL STATUS Time Seen by Provider: 08/21/24 21:46 History of Present Illness This 79-year-old female [facility] presents [facility] ER for increasing confusion and altered mental status who has a known history of recurrent UTIs. Per EMS patient was hypoxic in the 60s and normally assisted wearing oxygen. Her oxygen was not on her. Patient herself is confused and history is obtained from EMS. Patient does have a temperature and is mildly tachycardic had a fentanyl patch on her and is slightly hypotensive. Septic workup was initiated. Fentanyl patch was taken off. Home Medications Medication Instructions Recorded Confirmed Type Saccharomyces boulardii 250 mg 250 mg PO BID 03/08/24 05/07/24 History capsule (Florastor) acetaminophen 325 mg tablet 650 mg PO Q6H PRN Fever Or Pain 03/08/24 05/07/24 History (Tylenol) albuterol sulfate 2.5 mg/3 mL 2.5 mg continuous nebulization Q2H 03/08/24 05/07/24 History (0.083 %) solution for nebulization PRN COPD albuterol sulfate 90 mcg/actuation 2 puff inhalation Q12H PRN COPD 03/08/24 05/07/24 History aerosol inhaler arformoterol 15 mcg/2 mL solution 2 ml inhalation BID COPD 03/08/24 05/07/24 History for nebulization (Brovana) ascorbic acid (vitamin C) 1,000 mg 1 g PO QAM 03/08/24 05/07/24 History tablet (Vitamin C) budesonide 0.5 mg/2 mL suspension 0.5 mg inhalation BID COPD 03/08/24 05/07/24 History for nebulization buspirone 7.5 mg tablet 7.5 mg PO BID 03/08/24 05/07/24 History clonazepam 0.5 mg tablet 0.5 mg PO AMHS ANXIETY 03/08/24 05/07/24 History clopidogrel 75 mg tablet (Plavix) 75 mg PO QAM 03/08/24 05/07/24 History cyanocobalamin (vitamin B-12) 500 500 mcg PO QAM 03/08/24 05/07/24 History mcg tablet (Vitamin B-12) diclofenac sodium 1 % topical gel See Rx Instructions .Route .COMPLEX 03/08/24 05/07/24 History escitalopram oxalate 5 mg tablet 5 mg PO QAM 03/08/24 05/07/24 History famotidine 20 mg tablet 20 mg PO BID GERD 03/08/24 05/07/24 History fluticasone propionate 50 2 spray intranasal QAM 03/08/24 05/07/24 History mcg/actuation nasal spray,suspension gabapentin 300 mg capsule 300 mg PO TID 03/08/24 05/07/24 History guaifenesin 600 mg tablet, 600 mg PO BID cough 03/08/24 05/07/24 History extended release 12 hr (Mucinex) ipratropium 0.5 mg-albuterol 3 mg 3 ml inhalation QID COPD 03/08/24 05/07/24 History (2.5 mg base)/3 mL nebulization soln loperamide 2 mg tablet (Imodium 2 mg PO Q2H PRN Diarrhea 03/08/24 05/07/24 History A-D) loratadine 10 mg tablet 10 mg PO QAM 03/08/24 05/07/24 History methenamine hippurate 1 gram tablet 1 g PO BID UTI Prevention 03/08/24 05/07/24 History nystatin 100,000 unit/mL oral 5 ml PO QID Thrush 03/08/24 05/07/24 History suspension ondansetron HCl 4 mg tablet 4 mg PO Q6H PRN Nausea 03/08/24 05/07/24 History oxycodone 5 mg tablet 5 mg PO Q4H PRN Pain 5-10 03/08/24 05/07/24 History oxymetazoline 0.05 % nasal mist 2 spray intranasal Q12H PRN 03/08/24 05/07/24 History (Afrin (oxymetazoline)) Epistaxis pantoprazole 40 mg tablet,delayed 40 mg PO BID GERD 03/08/24 05/07/24 History release phenazopyridine 200 mg tablet 200 mg PO Q8H PRN Bladder Spasms 03/08/24 05/07/24 History (Pyridium) rosuvastatin 20 mg tablet 20 mg PO HS HLD 03/08/24 05/07/24 History bisacodyl 10 mg rectal suppository 10 mg SD DAILY PRN Constipation 05/06/24 05/07/24 History (Dulcolax (bisacodyl)) cholecalciferol (vitamin D3) 1,250 1,250 mcg PO WK 05/06/24 05/07/24 History mcg (50,000 unit) capsule cholecalciferol (vitamin D3) 50 50 mcg PO DAILY 05/06/24 05/07/24 History mcg (2,000 unit) tablet (Vitamin D3) fentanyl 25 mcg/hr transdermal 25 mcg transdermal Q72H Chronic 05/06/24 05/07/24 History patch Pain magnesium hydroxide 400 mg/5 mL 30 ml PO DAILY PRN Constipation 05/06/24 05/07/24 History oral suspension (Milk of Magnesia) methylprednisolone 4 mg tablets in See Rx Instructions .Route 05/06/24 05/07/24 Rx a dose pack (Medrol (Tyree)) .COMPLEX #21 ea Allergies Allergy/AdvReac Type Severity Reaction Status Date / Time metoclopramide Allergy Severe "lungs Verified 05/07/24 23:53 collapsed" cortisone Allergy Intermediate swelling Verified 05/07/24 23:53 salicylates Allergy Intermediate caused Verified 05/07/24 23:53 bleeding, can take EC aspirin Corticosteroids AdvReac Intermediate swelling Verified 05/07/24 23:53 (Glucocorticoids) Past Med/Surg History Problem List (Updated 08/21/24 @ 23:35 by Rosa Ortega PA-C) 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) Myocardial infarction type 2 (Acute) AMS (altered mental status) (Acute) Acute UTI (Acute) Complicated acute bronchitis (Acute) S/P ORIF (open reduction internal fixation) fracture Displaced fracture of right femoral neck Right femoral fracture (Acute) Pyelonephritis (Acute) Pyelitis Hypoxia (Acute) Discharge planning issues DVT prophylaxis GERD (gastroesophageal reflux disease) Anxiety Change in mental status (Acute) Urinary tract infection (Acute) Neuroforaminal stenosis of lumbar spine Hand abrasion Back pain Lumbar radiculopathy Greater trochanteric pain syndrome Leg pain, right COPD (chronic obstructive pulmonary disease) (Acute) Abdominal pain (Acute) Abnormal involuntary movements Hypophosphatemia Acute exacerbation of chronic obstructive pulmonary disease (COPD) Acute exacerbation of COPD with asthma Dysphagia Encounter for pre-operative examination Anemia GI bleed COPD (chronic obstructive pulmonary disease) "on home O2" Osteoporosis HTN (hypertension) Peripheral vascular disease Hyperlipidemia GERD (gastroesophageal reflux disease) Anxiety CAD (coronary artery disease) "Minimal non-obstructive CAD by left heart cath 2007" On 12/02/14 16:15 Jaye Nye wrote "Minimal non-obstructive CAD by left heart catherization 2007" Trigger finger History of appendectomy Arthritis of left knee Dysphagia Intractable nausea and vomiting Leg pain, left Weakness Weakness Dysphagia Asymptomatic bilateral carotid artery stenosis "s/p bilateral carotid endarterectomy" History of esophageal stricture Medical History Opiate overdose Acute CVA (cerebrovascular accident) TIA (transient ischemic attack) [facility] resident resident of [facility] History of GI bleed History of anemia History of esophageal dilatation Diarrhea Difficulty swallowing PVD (peripheral vascular disease) Osteoporosis Arthritis Anxiety SOB (shortness of breath) on exertion Chronic obstructive pulmonary disease OXYGEN 3-4 L/MIN CONTINUOUSLY CAD (coronary artery disease) F/U DR Angélica LEONARDO Hyperlipidemia Hypertension Surgical History Hx of esophagogastroduodenoscopy "EGD 12/04/11 Dr. Woods- large hiatal hernia. stomach and small intestine were normal. esophagus dilated, small tear in the UES" History of left heart catheterization H/O colonoscopy "Colonoscopy 09/06/13 Dr. Woods- sigmoid diverticulosis, internal hemorrhoids, no polyps" On 12/02/14 16:04 Jaye Nye wrote "2012-adenomatous polyp" Status post insertion of iliac artery stent "Right common iliac artery stent and right external iliac artery angioplasty on 06/22/14, Dr. Rodriguez, [facility] [place]" History of hemorrhoidectomy History of knee surgery S/p bilateral carotid endarterectomy H/O vascular surgery RIGHT ILIAC ARTERY STENT PLACEMENT H/O knee surgery History of appendectomy History of esophagogastroduodenoscopy (EGD) History of colonoscopy History of cataract surgery R/L H/O hemorrhoidectomy H/O carotid endarterectomy R/L History of cardiac cath NO STENTS Family History Other No family history of adverse response to anesthesia Social History Smoking Status: Unknown if ever smoked Age Started Using Tobacco: 19; packs per day: 2; Cigarettes Per Day: 5-10 CIG a day ADVISED; Do You Dip or Chew Tobacco: No; Hx Alcohol Use: No Hx Substance Use: No Preferred Language: Malay Communication Ability: Effective Communication Ability Comment: confused Equipment Service Associate Required: No Beliefs That Will Affect Care: None marital status: / Current Living Situation: [facility] Current Living Situation Comment: [facility] How many Children do You have: 1 Feels Safe at Home: Yes Assistive Devices: Oxygen - Continuous, Walker and Wheelchair Review of Systems A total of 10 systems reviewed and were otherwise negative Physical Exam Vital Signs Vital Signs - 24 hr 08/21/24 21:52 08/21/24 22:02 08/21/24 22:03 Temperature 38.3 C H 38.3 C H Temperature Source Rectal Rectal Pulse Rate 109 H 110 H Pulse Rate [Apical] 101 H Respiratory Rate 14 16 Respiratory Effort / Characteristics Non-Labored Spontaneous Respiratory Depth Normal Respiratory Pattern Regular Blood Pressure 111/83 Blood Pressure [Right Arm] 111/83 Blood Pressure Mean 92 Blood Pressure Mean [Right Arm] 92 Pulse Oximetry 96 96 Oxygen Delivery Method Nasal Cannula Nasal Cannula Oxygen Flow Rate 5 5 Sepsis Recent Fever Within 48 Hours Yes Sepsis New/Unexplained Change in Mental Status Yes Sepsis Action Taken by Nursing Physician Notified 08/21/24 22:19 08/21/24 22:20 08/21/24 22:28 Temperature Temperature Source Pulse Rate Pulse Rate [Apical] 106 H 106 H Respiratory Rate 16 18 Respiratory Effort / Characteristics Non-Labored Spontaneous Respiratory Depth Normal Respiratory Pattern Regular Blood Pressure Blood Pressure [Right Arm] 118/71 106/63 Blood Pressure Mean Blood Pressure Mean [Right Arm] 86 77 Pulse Oximetry 95 96 96 Oxygen Delivery Method Nasal Cannula Nasal Cannula Nasal Cannula Oxygen Flow Rate 5 5 5 Sepsis Recent Fever Within 48 Hours Sepsis New/Unexplained Change in Mental Status Sepsis Action Taken by Nursing 08/21/24 23:11 08/21/24 23:34 Temperature 37.6 C H Temperature Source Rectal Pulse Rate Pulse Rate [Apical] 102 H 102 H Respiratory Rate 18 16 Respiratory Effort / Characteristics Respiratory Depth Respiratory Pattern Blood Pressure Blood Pressure [Right Arm] 112/65 86/56 L Blood Pressure Mean Blood Pressure Mean [Right Arm] 80 66 Pulse Oximetry 96 94 Oxygen Delivery Method Nasal Cannula Oxymask Oxygen Flow Rate 5 7 Sepsis Recent Fever Within 48 Hours Sepsis New/Unexplained Change in Mental Status Sepsis Action Taken by Nursing VITALS: Vitals are noted on the nurse's note and reviewed by myself. Vital signs febrile. GENERAL: Elderly female confused moving all extremities SKIN: The skin was without rashes, erythema, edema, or bruising. There is no tenting of the skin. Capillary reflex less than 2 seconds. HEAD: Normocephalic atraumatic. EARS: External auditory canals clear EYES: Pupils equal round and reactive to light and accommodation. Conjunctivae without injection, sclerae without icterus. Extraocular movements intact. NOSE: Patent, no discharge. MOUTH: Mucous membranes dry. Pharynx without erythema or exudate. Uvula midline. Airway patent. Tongue does not deviate. NECK: Supple without nuchal rigidity. No lymphadenopathy. No thyromegaly. Cervical spine is nontender. No JVD. HEART: Regular rate and rhythm LUNGS: Clear to auscultation bilaterally without wheezes, rales or rhonchi. No retractions or accessory muscle use. ABDOMEN: Positive bowel sounds x 4. Normal tympanic percussion. Soft, mild diffuse tenderness without masses or organomegaly. Gilmore sign negative. No guarding or rebound tenderness. No CVA tenderness MUSCULOSKELETAL: No muscle atrophy, erythema, or edema noted. NEURO: Patient was alert but not oriented to person place and time. No focal neurological deficits. Course Administered Medications Discontinued Medications Acetaminophen (Acetaminophen 650 Mg Supp) 650 mg SD NOW STA Stop: 08/21/24 22:05 Last Admin: 08/21/24 22:26 Dose: 650 mg Documented By: NAVEED Sodium Chloride (Nss) 1,000 mls @ 999 mls/hr IV .Q1H1M SMITHA Stop: 08/21/24 23:00 Last Infusion: 08/21/24 23:18 Dose: Infused Documented By: Admin: 08/21/24 22:14 Dose: 999 mls/hr Documented By: NAVEED Daptomycin 300 mg/ Syringe 6 mls @ 3 mls/min IV ONE ONE; Protocol Stop: 08/21/24 21:57 Last Admin: 08/21/24 23:06 Dose: 3 mls/min Documented By: NAVEED Cefepime HCl (Maxipime 2000mg) 2,000 mg in 20 mls @ 5 mls/min IV NOW STA; Protocol Stop: 08/21/24 21:59 Last Admin: 08/21/24 23:02 Dose: 5 mls/min Documented By: NAVEED Sodium Chloride (Nss) 500 mls @ 999 mls/hr IV .Q31M ONE Stop: 08/21/24 22:38 Last Admin: 08/21/24 23:18 Dose: 999 mls/hr Documented By: NAVEED Ioversol (Optiray 320 125ml) 125 ml IV ONCE ONE Stop: 08/21/24 22:48 Last Admin: 08/21/24 22:49 Dose: 118 ml Documented By: SILVA Critical Care Time Critical Care Time: Yes Total Critical Care Time: 35 I have personally spent 35 minutes of critical care time in the direct management of this patient. This includes bedside care, interpretation of diagnostic studies, and testing, discussion with consultants, patient, and family members, and other required patient management activities. This 35 minutes is in excess of all separately billable procedures. Medical Decision Making Medical Records Attestation: I reviewed the patient's medical records. Home Medications Current Medication List: was personally reviewed by me Laboratory Data Attestation: I reviewed the patient's lab results. 08/21/24 21:47 08/21/24 21:47 Lab Results 08/21/24 08/21/24 08/21/24 Range/Units 21:47 22:00 22:01 WBC 8.24 (4.8-10.8) K/ul RBC 4.16 L (4.20-5.40) M/uL Hgb 11.0 L (12.0-16.0) g/dl POC Hgb 11.9 L (12.0-16.0) g/dl Hct 35.9 L (37.0-47.0) % POC Hct 35 L (37-47) % MCV 86.3 (80.0-100.0) fL MCH 26.4 (25.0-34.0) pg MCHC 30.6 L (32.0-36.0) g/dL RDW Std Deviation 42.5 (36.4-46.3) fL RDW Coeff of Renetta 13.6 (11.5-14.5) % Plt Count 408 H (130-400) K/uL MPV 10.3 (9.4-12.4) fL Immature Gran % (Auto) 0.2 % Neut % (Auto) 70.7 % Lymph % (Auto) 17.0 % [place] % (Auto) 11.3 % Eos % (Auto) 0.1 % Baso % (Auto) 0.7 % Neut # (Auto) 5.82 (1.40-6.50) K/uL Lymph # (Auto) 1.40 (1.20-3.40) K/uL [place] # (Auto) 0.93 H (0.11-0.59) K/uL Eos # (Auto) 0.01 (0.00-0.50) K/uL Baso # (Auto) 0.06 (0.00-0.20) K/uL Immature Gran # (Auto) 0.02 (0.01-0.20) K/uL VBG pH (7.36-7.41) VBG pCO2 (38-50) mmHg VBG pO2 mmHg VBG HCO3 mmol/L VBG O2 Saturation % VBG Base Excess mEq/L POC Sodium 136 (135-144) mmol/L Sodium 137 (136-145) mmol/L POC Potassium 4.8 (3.3-5.0) mmol/L Potassium 4.9 (3.5-5.1) mmol/L POC Chloride 98 L (101-112) mmol/L Chloride 99 (98-107) mmol/L Carbon Dioxide 33 H (21-32) mmol/L POC Total CO2 29 (24-31) mmol/L Anion Gap 5 (3-11) POC Anion Gap 16.0 (16-25) mmol/L POC BUN 21 H (7-18) mg/dl BUN 21 (6-23) mg/dl Creatinine 1.04 (0.6-1.2) mg/dl POC Creatinine 1.2 (0.6-1.3) mg/dl Est Cr Clr Drug Dosing Not Reportable eGFR 54.33 BUN/Creatinine Ratio 20.2 H (10-20) Glucose 116 H (70-99(Fasting)) mg/dl POC Glucose (other) 117 H (70-99) mg/dl Lactate (0.4-2.0) mmol/L Calcium 8.6 (8.6-10.3) mg/dl POC Ioniz Calcium Nicolel 1.12 (1.12-1.32) mmol/l Magnesium 1.9 (1.7-2.4) mg/dl Total Bilirubin 0.2 (0.2-1.0) mg/dl Direct Bilirubin 0.0 (0-0.2) mg/dl AST 15 (13-39) U/L ALT 6 L (7-52) U/L Alkaline Phosphatase 46 (34-104) U/L Troponin I High Sens 288.1 H* (0-14) pg/ml Total Protein 6.0 (6.0-8.3) gm/dl Albumin 3.4 (3.4-5.0) gm/dl Urine Color Yellow Urine Appearance Cloudy A (Clear) Urine pH 6.0 (4.5-7.5) Ur Specific [place] 1.020 (1.000-1.030) Urine Protein 1+ H (Negative) Urine Glucose (UA) Negative (Negative) Urine Ketones Negative (Negative) Urine Blood Trace-intact H (Negative) Urine Nitrite Negative (Negative) Urine Bilirubin Negative (Negative) Urine Urobilinogen Negative (Negative) Ur Leukocyte Esterase 1+ H (Negative) Urine RBC 6-10 H (0-2) /hpf Urine WBC 6-10 H (0-5) /hpf Ur Epithelial Cells >20 H (0-2) /hpf Urine Bacteria 1+ H (None Seen) Adenovirus (PCR) (NotDetected) B. pertussis DNA (PCR) (NotDetected) B.parapertussis DNA PCR (NotDetected) C. pneumoniae DNA (PCR) (NotDetected) Coronavirus OC43 (PCR) (NotDetected) Coronavirus HKU1 (PCR) (NotDetected) Coronavirus 229E (PCR) (NotDetected) SARS-CoV-2 (PCR) (NotDetected) Coronavirus NL63 (PCR) (NotDetected) Human Metapneumovir PCR (NotDetected) Influenza Type A (PCR) (NotDetected) Influenza Type B (PCR) (NotDetected) M. pneumoniae (PCR) (NotDetected) Parainfluenza 1 (PCR) (NotDetected) Parainfluenza 2 (PCR) (NotDetected) Parainfluenza 3 (PCR) (NotDetected) Parainfluenza 4 (PCR) (NotDetected) RSV (PCR) (NotDetected) Entero/Rhino (PCR) (NotDetected) 08/21/24 08/21/24 Range/Units 22:08 22:20 WBC (4.8-10.8) K/ul RBC (4.20-5.40) M/uL Hgb (12.0-16.0) g/dl POC Hgb (12.0-16.0) g/dl Hct (37.0-47.0) % POC Hct (37-47) % MCV (80.0-100.0) fL MCH (25.0-34.0) pg MCHC (32.0-36.0) g/dL RDW Std Deviation (36.4-46.3) fL RDW Coeff of Renetta (11.5-14.5) % Plt Count (130-400) K/uL MPV (9.4-12.4) fL Immature Gran % (Auto) % Neut % (Auto) % Lymph % (Auto) % [place] % (Auto) % Eos % (Auto) % Baso % (Auto) % Neut # (Auto) (1.40-6.50) K/uL Lymph # (Auto) (1.20-3.40) K/uL [place] # (Auto) (0.11-0.59) K/uL Eos # (Auto) (0.00-0.50) K/uL Baso # (Auto) (0.00-0.20) K/uL Immature Gran # (Auto) (0.01-0.20) K/uL VBG pH 7.38 (7.36-7.41) VBG pCO2 59 H (38-50) mmHg VBG pO2 40 mmHg VBG HCO3 35 mmol/L VBG O2 Saturation 69.8 % VBG Base Excess 7.7 mEq/L POC Sodium (135-144) mmol/L Sodium (136-145) mmol/L POC Potassium (3.3-5.0) mmol/L Potassium (3.5-5.1) mmol/L POC Chloride (101-112) mmol/L Chloride (98-107) mmol/L Carbon Dioxide (21-32) mmol/L POC Total CO2 (24-31) mmol/L Anion Gap (3-11) POC Anion Gap (16-25) mmol/L POC BUN (7-18) mg/dl BUN (6-23) mg/dl Creatinine (0.6-1.2) mg/dl POC Creatinine (0.6-1.3) mg/dl Est Cr Clr Drug Dosing eGFR BUN/Creatinine Ratio (10-20) Glucose (70-99(Fasting)) mg/dl POC Glucose (other) (70-99) mg/dl Lactate 1.3 (0.4-2.0) mmol/L Calcium (8.6-10.3) mg/dl POC Ioniz Calcium Nicolle (1.12-1.32) mmol/l Magnesium (1.7-2.4) mg/dl Total Bilirubin (0.2-1.0) mg/dl Direct Bilirubin (0-0.2) mg/dl AST (13-39) U/L ALT (7-52) U/L Alkaline Phosphatase (34-104) U/L Troponin I High Sens (0-14) pg/ml Total Protein (6.0-8.3) gm/dl Albumin (3.4-5.0) gm/dl Urine Color Urine Appearance (Clear) Urine pH (4.5-7.5) Ur Specific [place] (1.000-1.030) Urine Protein (Negative) Urine Glucose (UA) (Negative) Urine Ketones (Negative) Urine Blood (Negative) Urine Nitrite (Negative) Urine Bilirubin (Negative) Urine Urobilinogen (Negative) Ur Leukocyte Esterase (Negative) Urine RBC (0-2) /hpf Urine WBC (0-5) /hpf Ur Epithelial Cells (0-2) /hpf Urine Bacteria (None Seen) Adenovirus (PCR) Not Detected (NotDetected) B. pertussis DNA (PCR) Not Detected (NotDetected) B.parapertussis DNA PCR Not Detected (NotDetected) C. pneumoniae DNA (PCR) Not Detected (NotDetected) Coronavirus OC43 (PCR) Not Detected (NotDetected) Coronavirus HKU1 (PCR) Not Detected (NotDetected) Coronavirus 229E (PCR) Not Detected (NotDetected) SARS-CoV-2 (PCR) Not Detected (NotDetected) Coronavirus NL63 (PCR) Not Detected (NotDetected) Human Metapneumovir PCR Not Detected (NotDetected) Influenza Type A (PCR) Not Detected (NotDetected) Influenza Type B (PCR) Not Detected (NotDetected) M. pneumoniae (PCR) Not Detected (NotDetected) Parainfluenza 1 (PCR) Not Detected (NotDetected) Parainfluenza 2 (PCR) Not Detected (NotDetected) Parainfluenza 3 (PCR) Not Detected (NotDetected) Parainfluenza 4 (PCR) Not Detected (NotDetected) RSV (PCR) Not Detected (NotDetected) Entero/Rhino (PCR) Not Detected (NotDetected) Imaging Data Attestation: I personally reviewed and interpreted this imaging study as follows: Radiologist's Impression: Abdomen/Pelvis CT 08/21/24 21:53 Exam(s): CT ABDOMEN + PELVIS With Contrast IV Amt: 118 ml optiray 320 EXAM: CT Abdomen and Pelvis With Intravenous Contrast CLINICAL HISTORY: Reason for exam: ams, fever, pain. TECHNIQUE: Axial computed tomography images of the abdomen and pelvis with intravenous contrast. CTDI is 37.78 mGy and DLP is 2032.04 mGy-cm. Automated exposure control was utilized for the study. A dose lowering technique was utilized adhering to the principles of ALARA. CONTRAST: Patient received 118 ml optiray 320 of IV contrast COMPARISON: No relevant prior studies available. FINDINGS: Lung bases: Bibasilar subsegmental atelectasis. ABDOMEN: Liver: Unremarkable. No mass. Gallbladder and bile ducts: Unremarkable. No calcified stones. No ductal dilation. Pancreas: Unremarkable. No mass. No ductal dilation. Spleen: Unremarkable. No splenomegaly. Adrenals: Unremarkable. No mass. Kidneys and ureters: Symmetric renal enhancement. No hydronephrosis. Simple bilateral renal cysts, largest in the right kidney measuring 24 mm; no follow-up indicated. Stomach and bowel: No bowel obstruction. Sigmoid diverticula without diverticulitis. Moderate rectal stool. PELVIS: Appendix: Appendix not identified. Bladder: Bladder wall thickening. Reproductive: Hysterectomy. ABDOMEN and PELVIS: Intraperitoneal space: Unremarkable. No free air, significant free fluid, or fluid collection. Bones/joints: Osteopenia. No acute fracture or dislocation. Prior ORIF right femur. Chronic compression fracture at L1. Soft tissues: Unremarkable. Vasculature: Atherosclerosis without aortic aneurysm. Patent, stented right common iliac artery. Severe stenosis distal abdominal aorta related to calcific plaque (series 12, image 133). Assessment of patency/stenoses in the bilateral iliac arteries is limited by degree of calcific plaquing. Lymph nodes: Unremarkable. No enlarged lymph nodes. IMPRESSION: 1. Severe stenosis distal abdominal aorta related to calcific plaque (series 12, image 133). 2. Bladder wall thickening. Correlate with urinalysis for possible cystitis. 3. Moderate rectal stool. Electronically signed by: García Mg M.D. 08/21/24 23:23 PM Chest CTA 08/21/24 21:53 Exam(s): CTA CHEST IV Amt: 118 ml optiray 320 EXAM: CT Angiography Chest With Intravenous Contrast CLINICAL HISTORY: Reason for exam: PE. TECHNIQUE: Axial computed tomographic angiography images of the chest with intravenous contrast. CTDI is 37.78 mGy and DLP is 2032.04 mGy-cm. Automated exposure control was utilized for the study. A dose lowering technique was utilized adhering to the principles of ALARA. MIP reconstructed images were created and reviewed. COMPARISON: 05/07/24 FINDINGS: Pulmonary arteries: Adequate pulmonary artery opacification. Normal caliber main pulmonary artery. No evidence of acute pulmonary embolism. Aorta: Thoracic aortic atherosclerosis without aneurysm or dissection. Lungs: Emphysema. Bibasilar subsegmental atelectasis. No consolidation or mass. Pleural space: Unremarkable. No significant effusion. No pneumothorax. Heart: Unremarkable. No cardiomegaly. No significant pericardial effusion. Mediastinum: Some retained debris in the esophagus. Bones/joints: Chronic T7 and L1 compression fractures. No acute fracture or dislocation. Soft tissues: Unremarkable. Lymph nodes: Unremarkable. No enlarged lymph nodes. IMPRESSION: No evidence of acute pulmonary embolism. Electronically signed by: García Mg M.D. 08/21/24 23:[address] 08/21/24 21:53 Exam(s): CT HEAD Without Contrast EXAM: CT Head Without Intravenous Contrast CLINICAL HISTORY: Reason for exam: AMS. TECHNIQUE: Axial computed tomography images of the head/brain without intravenous contrast. CTDI is 37.78 mGy and DLP is 2032.04 mGy-cm. Automated exposure control was utilized for the study. A dose lowering technique was utilized adhering to the principles of ALARA. COMPARISON: 03/11/24 FINDINGS: Brain: Age-related parenchymal volume loss. Mild chronic small vessel ischemic change. Rojas-white matter differentiation maintained. No hemorrhage, mass effect, parenchymal edema, or midline shift. Ventricles: Unremarkable. No hydrocephalus. Bones/joints: Unremarkable. No acute fracture. Soft tissues: Unremarkable. Vasculature: Intracranial atherosclerosis. Sinuses: Unremarkable as visualized. Mastoid air cells: Unremarkable as visualized. No mastoid effusion. Orbits: Lens replacements. IMPRESSION: No acute intracranial process. Electronically signed by: García Mg M.D. 08/21/24 23:24 PM [facility] Narrative Prior records/ancillary studies reviewed. Triage Nursing notes reviewed. Additional history obtained from EMS The patient's history was concerning for fever and AMS Differential diagnosis: Etiologies such as sepsis, UTI, pneumonia, metabolic, electrolyte abnormalities, cardiac sources, intracerebral event, toxicologic, neurologic, as well as others were entertained. Physical examination: As above. Pertinent findings were febrile. Vital signs reviewed and revealed febrile and tachycardic. ER treatment provided: IV fluid resuscitation with Normal saline solution, 1500 mL bolus. Blood and urine cultures Antibiotics: Daptomycin and cefepime An order was placed for continuous cardiac monitoring. The monitor shows a rate of [] with a [] rhythm per my interpretation. On reassessment the patient vital signs improved. Diagnostics interpretation by me: ECG: Ordered for altered mental status EKG: Normal sinus, poor baseline, no acute ST-T wave changes, rate of 1 9. Impression sinus tachycardia independently interpreted by myself The labs Independently Interpreted by myself revealed no worrisome leukocytosis on CBC. Chemistry panel revealed glucose 116. LFTs revealed. Cardiac enzymes were 288 Serum Lactate measurement was 1.3 Blood and urine cultures are pending. MARLENA PHILLIPS [id number] Allergy/Adv: metoclopramide, cortisone, salicylates, Corticosteroids (Glucocorticoids) (More) Close Micro Urine Specimen 05/12/24 Urine Culture - Final Micro Urine Specimen 03/23/24 Urine Culture - Final Micro Blood Specimen 03/12/24 Aerobic Blood Culture - Final Micro Blood Specimen 03/12/24 Aerobic Blood Culture - Final Micro Blood Specimen 03/08/24 Aerobic Blood Culture - Final Micro Blood Specimen 03/08/24 Aerobic Blood Culture - Final Micro Urine Specimen 03/08/24 Urine Culture - Final Micro Urine Specimen 02/13/24 Urine Culture - Final Micro Blood Specimen 02/13/24 Aerobic Blood Culture - Final Micro Blood Specimen 02/13/24 Aerobic Blood Culture - Final Micro Urine Specimen 02/11/24 Urine Culture - Final Micro Urine Specimen 09/28/23 Urine Culture - Final Micro Urine Specimen 09/27/23 Urine Culture - Final Micro Urine Specimen 08/02/23 Urine Culture - Final Micro Urine Specimen 07/22/23 Urine Culture - Final Micro Urine Specimen 05/02/23 Urine Culture - Final Micro Urine Specimen 02/15/23 Urine Culture - Final Micro Urine Specimen 11/02/22 Urine Culture - Final Micro Urine Specimen 04/03/22 Urine Culture - Final [employer] [address], [place] [address] / Director: Sofia Valera M.D. Clinical Laboratory Report Name: MARLENA PHILLIPS Acct: [id number] Status: KARYNA Finesse : 1945 [facility] [place] Date: 05/12/24 Age: 79 Sex: F Dis Date: Loc: [facility] Spec: [id number] Collected: 05/12/24-UNK Received: 05/12/24-[address]: [facility] Source: Urine,Clean Catch OV Order: Ordered: Urine Culture Procedure Result Verified Site Urine Culture Final 05/14/24-1131 Organism 1 Enterococcus faecium VRE [place] Count 80,000 CFU/ml Sens Sensitivities to Follow Organism 2 Gram negative bacilli [place] Count 6,000 CFU/ml Sens No Sensitivities to Follow VRE E fa RX M.I.C. --- --------- Ampicillin R >8 Ciprofloxacin R >2 Daptomycin S 4 Gent Synergy S <=500 Levofloxacin R >4 Nitrofurantoin I 64 Penicillin R >8 Strep Synergy R >1000 Tetracycline R >8 Vancomycin R >16 Enterococcus faecium VRE: Positive Combo 33 Streptomycin Synergy Screen R Gentamicin Synergy Screen S S = SENSITIVE I = INTERMEDIATE R = RESISTANT Imaging studies: Chest xray revealed with no acute consolidation, pneumothorax or free air per my independent or potation CTs were reviewed and read by radiology as above Consultation: A consultation was placed with the hospitalist. The case was discussed and diagnostics were reviewed. The patient was evaluated in the ER for further treatment. Exam and history seem consistent with acute UTI with type II MT with a history of VRE. Prior urine culture was reviewed. Patient was started on daptomycin and cefepime. Imaging was reviewed. Patient was reassessed and improved. She was now able to speak more clearly. Medicine was consulted case discussed. Patient be mated to the medical service. The chart was completed utilizing [employer] Speech voice recognition software. Grammatical errors, random word insertions, pronoun errors, and incomplete sentences are an occassional consequence of this system due to software limitations, ambient noise, and hardware issues. Any formal questions or concerns about the content, text, or information contained within the body of this dictation should be directly addressed to the physician assistant hairstylist for clarification. Attending Attestation: I Fab Murrell MD I have reviewed the advanced practitioner's documentation and agree with the plan of care. I accept the responsibility for the associated risk of managing the patient. I performed a substantive portion of the visit including involvement in all aspects of medical decision making. Impression & Plan Acute UTI, AMS (altered mental status), Myocardial infarction type 2, VRE carrier Discharge Plan Visit Data Chief Complaint: Altered Mental Status Stated Complaint: ALTERED MENTAL STATUS ED Provider: Fab Murrell ED Midlevel Provider: Rosa Ortega Discharge Problem: Acute UTI, AMS (altered mental status), Myocardial infarction type 2, VRE carrier Forms Stand Alone Forms: My [facility] [employer] Prescriptions Prescriptions: No Action ascorbic acid (vitamin C) [Vitamin C] 1,000 mg Tablet 1 g PO QAM albuterol sulfate 2.5 mg /3 mL (0.083 %) solution for nebulization 2.5 mg continuous nebulization Q2H PRN (Reason: COPD) clonazepam 0.5 mg tablet 0.5 mg PO AMHS loperamide [Imodium A-D] 2 mg Tablet 2 mg PO Q2H PRN (Reason: Diarrhea) Rx Instructions: administer after each loose stool until symptoms controlled; do not exceed 8 mg per 24 hrs clopidogrel [Plavix] 75 mg Tablet 75 mg PO QAM famotidine 20 mg Tablet 20 mg PO BID cyanocobalamin (vitamin B-12) [Vitamin B-12] 500 mcg Tablet 500 mcg PO QAM gabapentin 300 mg capsule 300 mg PO TID buspirone 7.5 mg Tablet 7.5 mg PO BID budesonide 0.5 mg/2 mL suspension for nebulization 0.5 mg inhalation BID albuterol sulfate 90 mcg/actuation HFA aerosol inhaler 2 puff INHALATION Q12H PRN (Reason: COPD) fluticasone propionate 50 mcg/actuation spray,suspension 2 spray INTRANASAL QAM Afrin (oxymetazoline) 0.05 % Mist 2 spray INTRANASAL Q12H PRN (Reason: Epistaxis) Saccharomyces boulardii [Florastor] 250 mg Capsule 250 mg PO BID Rx Instructions: am,hs escitalopram oxalate 5 mg Tablet 5 mg PO QAM arformoterol [Brovana] 15 mcg/2 mL Solution For Nebulization 2 ml INHALATION BID guaifenesin [Mucinex] 600 mg Tablet Extended Release 12hr 600 mg PO BID nystatin 100,000 unit/mL suspension 5 ml PO QID Rx Instructions: swish & swallow acetaminophen [Tylenol] 325 mg Tablet 650 mg PO Q6H MDD 3g/24hr PRN (Reason: Fever Or Pain) ipratropium-albuterol 0.5 mg-3 mg(2.5 mg base)/3 mL Solution For Nebulization 3 ml INHALATION QID phenazopyridine [Pyridium] 200 mg Tablet 200 mg PO Q8H PRN (Reason: Bladder Spasms) ondansetron HCl 4 mg Tablet 4 mg PO Q6H PRN (Reason: Nausea) methenamine hippurate 1 gram tablet 1 g PO BID pantoprazole 40 mg Tablet,Delayed Release (Dr/Ec) 40 mg PO BID loratadine 10 mg Tablet 10 mg PO QAM oxycodone 5 mg Tablet 5 mg PO Q4H PRN (Reason: Pain 5-10 ) rosuvastatin 20 mg Tablet 20 mg PO HS diclofenac sodium 1 % Gel See Rx Instructions .ROUTE .COMPLEX Rx Instructions: Apply 2g to the shoulders and 4g to the right thigh. Ok to use despite allergy <--- On pt's MAR magnesium hydroxide [Milk of Magnesia] 400 mg/5 mL Suspension 30 ml PO DAILY PRN (Reason: Constipation) Rx Instructions: If no BM for 3 days administer on (7-3 shift) bisacodyl [Dulcolax (bisacodyl)] 10 mg Suppository 10 mg SD DAILY PRN (Reason: Constipation) Rx Instructions: Give on day 3 (3-11 shift) if no BM after MOM fentanyl 25 mcg/hr patch 72 hour 25 mcg transdermal Q72H cholecalciferol (vitamin D3) 1,250 mcg (50,000 unit) Capsule 1,250 mcg PO WK Rx Instructions: Start Date 03/18/24 - End Date 05/13/24 - Only for 8 weeks on Saturdays cholecalciferol (vitamin D3) [Vitamin D3] 50 mcg (2,000 unit) Tablet 50 mcg PO DAILY methylprednisolone [Medrol (Tyree)] 4 mg tablets,dose pack See Rx Instructions .ROUTE .COMPLEX Qty: 21 0RF Rx Instructions: As Per Packaging Referrals Referrals: [facility] [Primary Care Provider] -
[2024-08-21 22:13] LABS: iSTAT Creatinine 1.2 mg/dl (0.6-1.3); iSTAT Hemoglobin 11.9 g/dl (12.0-16.0); iSTAT Ionized Calcium 1.12 mmol/l (1.12-1.32); iSTAT Potassium 4.8 mmol/L (3.3-5.0)
[2024-08-21] MEDS: SODIUM CHLORIDE 0.9% 1,000 ML IV SCH (22:14)
[2024-08-21 22:18] LABS: Appearance Urine Cloudy (Clear); Bilirubin Urine Negative (Negative); Blood Urine Trace-intact (Negative); Glucose Urine UA Negative (Negative); Ketones Urine Negative (Negative); Leukocyte Esterase Urine 1+ (Negative); Nitrite Urine Negative (Negative); Protein Urine 1+ (Negative); Urobilinogen Urine Negative (Negative)
[2024-08-21 22:20] LABS: Alanine Aminotransferase 6 U/L (7-52); Albumin Level 3.4 gm/dl (3.4-5.0); Alkaline Phosphatase 46 U/L (34-104); Anion Gap 5 (3-11); Aspartate Aminotransferase 15 U/L (13-39); BUN Creatinine Ratio 20.2 (10-20); Bilirubin,Total 0.2 mg/dl (0.2-1.0); Blood Urea Nitrogen 21 mg/dl (6-23); Calcium 8.6 mg/dl (8.6-10.3); Carbon Dioxide 33 mmol/L (21-32); Chloride 99 mmol/L (98-107); Glucose 116 mg/dl (70-99(Fasting)); Magnesium 1.9 mg/dl (1.7-2.4); Potassium 4.9 mmol/L (3.5-5.1); Sodium 137 mmol/L (136-145)
[2024-08-21] MEDS: ACETAMINOPHEN 650 MG SUPP PR STA (22:26)
[2024-08-21 22:34] LABS: Troponin I High Sensitivity 288.1 pg/ml (0-14)
[2024-08-21 22:34] LABS: Base Excess VBG 7.7 mEq/L; HCO3 VBG 35 mmol/L; Oxygen Saturation VBG 69.8 %; PCO2 VBG 59 mmHg (38-50); PO2 VBG 40 mmHg; pH VBG 7.38 (7.36-7.41)
[2024-08-21 22:41] LABS: Color Urine Yellow
[2024-08-21 22:42] LABS: Epithelial Cell Urine >20 /hpf (0-2)
[2024-08-21 22:43] LABS: Bacteria Urine 1+ (None Seen)
[2024-08-21] MEDS: OPTIRAY 320 125ml IV ONE (22:49)
[2024-08-21] MEDS: CEFEPIME 2000MG 2,000 MG/20 ML SYR IV STA (23:02)
[2024-08-21] MEDS: DAPTOmycin 300 MG in SYRINGE 0 ML IV ONE (23:06)
[2024-08-21 23:12] LABS: Adenovirus PCR Not Detected (NotDetected); Bordetella parapertussis PCR Not Detected (NotDetected); Bordetella pertussis PCR Not Detected (NotDetected); Chlamydia pneumoniae PCR Not Detected (NotDetected); Coronavirus 229E PCR Not Detected (NotDetected); Coronavirus CoV-2 (COVID19)PCR Not Detected (NotDetected); Coronavirus HKU1 PCR Not Detected (NotDetected); Coronavirus NL63 PCR Not Detected (NotDetected); Coronavirus OC43PCR Not Detected (NotDetected); Human Metapneumovirus PCR Not Detected (NotDetected); Influenza A PCR Not Detected (NotDetected); Influenza B PCR Not Detected (NotDetected); Mycoplasma pneumoniae PCR Not Detected (NotDetected); Parainfluenza Virus 1 PCR Not Detected (NotDetected); Parainfluenza Virus 2 PCR Not Detected (NotDetected); Parainfluenza Virus 3 PCR Not Detected (NotDetected); Parainfluenza Virus 4 PCR Not Detected (NotDetected); Respiratory Syncytial VirusPCR Not Detected (NotDetected); Rhinovirus/Enterovirus PCR Not Detected (NotDetected)
[2024-08-21] MEDS: SODIUM CHLORIDE 0.9% 500 ML IV ONE (23:18)
--- NOTE | 2024-08-21 23:18 | CT Scan Report ---
Exam(s): CTA CHEST IV Amt: 118 ml optiray 320 EXAM: CT Angiography Chest With Intravenous Contrast CLINICAL HISTORY: Reason for exam: PE. TECHNIQUE: Axial computed tomographic angiography images of the chest with intravenous contrast. CTDI is 37.78 mGy and DLP is 2032.04 mGy-cm. Automated exposure control was utilized for the study. A dose lowering technique was utilized adhering to the principles of ALARA. MIP reconstructed images were created and reviewed. COMPARISON: 05/07/24 FINDINGS: Pulmonary arteries: Adequate pulmonary artery opacification. Normal caliber main pulmonary artery. No evidence of acute pulmonary embolism. Aorta: Thoracic aortic atherosclerosis without aneurysm or dissection. Lungs: Emphysema. Bibasilar subsegmental atelectasis. No consolidation or mass. Pleural space: Unremarkable. No significant effusion. No pneumothorax. Heart: Unremarkable. No cardiomegaly. No significant pericardial effusion. Mediastinum: Some retained debris in the esophagus. Bones/joints: Chronic T7 and L1 compression fractures. No acute fracture or dislocation. Soft tissues: Unremarkable. Lymph nodes: Unremarkable. No enlarged lymph nodes. IMPRESSION: No evidence of acute pulmonary embolism. Electronically signed by: García Mg M.D. 08/21/24 23:17 PM
--- NOTE | 2024-08-21 23:24 | CT Scan Report ---
Exam(s): CT ABDOMEN + PELVIS With Contrast IV Amt: 118 ml optiray 320 EXAM: CT Abdomen and Pelvis With Intravenous Contrast CLINICAL HISTORY: Reason for exam: ams, fever, pain. TECHNIQUE: Axial computed tomography images of the abdomen and pelvis with intravenous contrast. CTDI is 37.78 mGy and DLP is 2032.04 mGy-cm. Automated exposure control was utilized for the study. A dose lowering technique was utilized adhering to the principles of ALARA. CONTRAST: Patient received 118 ml optiray 320 of IV contrast COMPARISON: No relevant prior studies available. FINDINGS: Lung bases: Bibasilar subsegmental atelectasis. ABDOMEN: Liver: Unremarkable. No mass. Gallbladder and bile ducts: Unremarkable. No calcified stones. No ductal dilation. Pancreas: Unremarkable. No mass. No ductal dilation. Spleen: Unremarkable. No splenomegaly. Adrenals: Unremarkable. No mass. Kidneys and ureters: Symmetric renal enhancement. No hydronephrosis. Simple bilateral renal cysts, largest in the right kidney measuring 24 mm; no follow-up indicated. Stomach and bowel: No bowel obstruction. Sigmoid diverticula without diverticulitis. Moderate rectal stool. PELVIS: Appendix: Appendix not identified. Bladder: Bladder wall thickening. Reproductive: Hysterectomy. ABDOMEN and PELVIS: Intraperitoneal space: Unremarkable. No free air, significant free fluid, or fluid collection. Bones/joints: Osteopenia. No acute fracture or dislocation. Prior ORIF right femur. Chronic compression fracture at L1. Soft tissues: Unremarkable. Vasculature: Atherosclerosis without aortic aneurysm. Patent, stented right common iliac artery. Severe stenosis distal abdominal aorta related to calcific plaque (series 12, image 133). Assessment of patency/stenoses in the bilateral iliac arteries is limited by degree of calcific plaquing. Lymph nodes: Unremarkable. No enlarged lymph nodes. IMPRESSION: 1. Severe stenosis distal abdominal aorta related to calcific plaque (series 12, image 133). 2. Bladder wall thickening. Correlate with urinalysis for possible cystitis. 3. Moderate rectal stool. Electronically signed by: García Mg M.D. 08/21/24 23:23 PM
--- NOTE | 2024-08-21 23:25 | CT Scan Report ---
Exam(s): CT HEAD Without Contrast EXAM: CT Head Without Intravenous Contrast CLINICAL HISTORY: Reason for exam: AMS. TECHNIQUE: Axial computed tomography images of the head/brain without intravenous contrast. CTDI is 37.78 mGy and DLP is 2032.04 mGy-cm. Automated exposure control was utilized for the study. A dose lowering technique was utilized adhering to the principles of ALARA. COMPARISON: 03/11/24 FINDINGS: Brain: Age-related parenchymal volume loss. Mild chronic small vessel ischemic change. Rojas-white matter differentiation maintained. No hemorrhage, mass effect, parenchymal edema, or midline shift. Ventricles: Unremarkable. No hydrocephalus. Bones/joints: Unremarkable. No acute fracture. Soft tissues: Unremarkable. Vasculature: Intracranial atherosclerosis. Sinuses: Unremarkable as visualized. Mastoid air cells: Unremarkable as visualized. No mastoid effusion. Orbits: Lens replacements. IMPRESSION: No acute intracranial process. Electronically signed by: García Mg M.D. 08/21/24 23:24 PM
--- NOTE | 2024-08-21 23:44 | History & Physical Report ---
Date of Service August 21, 2024 Assessment & Plan (1) Sepsis: Plan: 79yo female with history of severe COPD, Chronic hypoxemic respiratory failure on 3L O2 at baseline, CAD, HTN and HLP presenting with worsening confusion. Patient with sepsis present on admission with Tm=38.3, WT=078. Patient with history of recurrent UTIs - on Methenamine for suppression. Prior urine cultures with VRE. -Admit to PCU -Follow urine cultures -Maintain isolation precautions -Continue Daptomycin -Tylenol PRN (2) Myocardial infarction type 2: Plan: Patient with elevated troponin, no report of chest pain. No acute ischemic changes on EKG. Likely Type II NSTEMI in setting of hypoxia. -Telemetry monitoring -Trend troponin (3) Acute UTI: Plan: Patient with acute UTI - history of VRE -Follow cultures -Continue Daptomycin -Hold Crestor while on Daptomycin (4) COPD (chronic obstructive pulmonary disease): Plan: Patient with chronic hypoxic respiratory failure on 3L home oxygen. Presently with adequate oxygenation on Oxymask 1L/min. Was previously on NC with dec reased sats when she fell asleep - is doing better on Oxymask -Continue supplemental O2 - goal saturation 99-92% -Continue Albuterol/Ipratopium -Albuterol PRN -Budesonide and Formoterol -Continue Prednisone 10mg po daily -Continue Guaifenesin (5) CAD (coronary artery disease): Plan: Patient with elevated troponin. No STEMI on EKG. No report of chest pain -Continue Plavix -Holding Crestor Admission and Anticipated Discharge Date Admission Date: Chronic Medical Conditions: Anxiety - -Continue Buspirone 7.5mg po BID -Continue Clonazepam BID - hold for sedation or AMS -Continue Escitalopram 5mg po qAM GERD -Continue Famotidine -Continue Protonix Chronic Pain -Continue Fentanyl patch -Continue Gabapentin -Continue Oxycodone PRN History of Present Illness Chief Complaint: confusion Primary Care Provider: [facility] Ana Nichols is an 79yo female with history of chronic hypoxic respiratory failure secondary to severe COPD on supplemental O2 at baseline, CAD, HTN, HLP and prior CVA presenting from [facility] with worsening confusion. Patient was hypoxic upon arrival of EMS with saturation in the 60's - not wearing her supplemental O2. Patient hypotensive with elevated temperature and HR on arrival. She had a Fentanyl patch in place which was removed. Patient given IVF in the ER with improvement in mental status. Able to answer some questions and follow commands. In the ER she is hypotensive with BP 86/56, BU=694, T=37.6 ER Course: NSS x 1L Tylenol 650mg FL Cefepime 2gm Daptomycin 300mg NSS x 500mL Allergies Allergy/AdvReac Type Severity Reaction Status Date / Time metoclopramide Allergy Severe "lungs Verified 05/07/24 23:53 collapsed" cortisone Allergy Intermediate swelling Verified 05/07/24 23:53 salicylates Allergy Intermediate caused Verified 05/07/24 23:53 bleeding, can take EC aspirin Corticosteroids AdvReac Intermediate swelling Verified 05/07/24 23:53 (Glucocorticoids) Home Medications Medication Instructions Recorded Confirmed Type Saccharomyces boulardii 250 mg 250 mg PO BID 03/08/24 08/22/24 History capsule (Florastor) acetaminophen 325 mg tablet 650 mg PO Q6H PRN Fever Or Pain 03/08/24 08/22/24 History (Tylenol) albuterol sulfate 2.5 mg/3 mL 2.5 mg continuous nebulization Q2H 03/08/24 08/22/24 History (0.083 %) solution for nebulization PRN COPD albuterol sulfate 90 mcg/actuation 2 puff inhalation Q12H PRN COPD 03/08/24 08/22/24 History aerosol inhaler arformoterol 15 mcg/2 mL solution 2 ml inhalation BID COPD 03/08/24 08/22/24 History for nebulization (Brovana) ascorbic acid (vitamin C) 1,000 mg 1 g PO QAM 03/08/24 08/22/24 History tablet (Vitamin C) budesonide 0.5 mg/2 mL suspension 0.5 mg inhalation BID COPD 03/08/24 08/22/24 History for nebulization buspirone 7.5 mg tablet 7.5 mg PO BID 03/08/24 08/22/24 History clonazepam 0.5 mg tablet 0.5 mg PO AMHS ANXIETY 03/08/24 08/22/24 History clopidogrel 75 mg tablet (Plavix) 75 mg PO QAM 03/08/24 08/22/24 History cyanocobalamin (vitamin B-12) 500 500 mcg PO QAM 03/08/24 08/22/24 History mcg tablet (Vitamin B-12) diclofenac sodium 1 % topical gel See Rx Instructions .Route .COMPLEX 03/08/24 08/22/24 History escitalopram oxalate 5 mg tablet 5 mg PO QAM 03/08/24 08/22/24 History famotidine 20 mg tablet 20 mg PO BID GERD 03/08/24 08/22/24 History fluticasone propionate 50 2 spray intranasal QAM 03/08/24 08/22/24 History mcg/actuation nasal spray,suspension gabapentin 300 mg capsule 300 mg PO TID 03/08/24 08/22/24 History guaifenesin 600 mg tablet, 600 mg PO BID cough 03/08/24 08/22/24 History extended release 12 hr (Mucinex) ipratropium 0.5 mg-albuterol 3 mg 3 ml inhalation QID COPD 03/08/24 08/22/24 History (2.5 mg base)/3 mL nebulization soln loperamide 2 mg tablet (Imodium 2 mg PO Q2H PRN Diarrhea 03/08/24 08/22/24 History A-D) loratadine 10 mg tablet 10 mg PO QAM 03/08/24 08/22/24 History methenamine hippurate 1 gram tablet 1 g PO BID UTI Prevention 03/08/24 08/22/24 History nystatin 100,000 unit/mL oral 5 ml PO QID Thrush 03/08/24 05/07/24 History suspension ondansetron HCl 4 mg tablet 4 mg PO Q6H PRN Nausea 03/08/24 08/22/24 History oxycodone 5 mg tablet 5 mg PO Q4H PRN Pain 5-10 03/08/24 08/22/24 History oxymetazoline 0.05 % nasal mist 2 spray intranasal Q12H PRN 03/08/24 08/22/24 History (Afrin (oxymetazoline)) Epistaxis pantoprazole 40 mg tablet,delayed 40 mg PO BID GERD 03/08/24 08/22/24 History release phenazopyridine 200 mg tablet 200 mg PO Q8H PRN Bladder Spasms 03/08/24 08/22/24 History (Pyridium) rosuvastatin 20 mg tablet 20 mg PO HS HLD 03/08/24 08/22/24 History bisacodyl 10 mg rectal suppository 10 mg FL DAILY PRN Constipation 05/06/24 08/22/24 History (Dulcolax (bisacodyl)) cholecalciferol (vitamin D3) 1,250 1,250 mcg PO WK 05/06/24 05/07/24 History mcg (50,000 unit) capsule cholecalciferol (vitamin D3) 50 50 mcg PO DAILY 05/06/24 05/07/24 History mcg (2,000 unit) tablet (Vitamin D3) fentanyl 25 mcg/hr transdermal 25 mcg transdermal Q72H Chronic 05/06/24 08/22/24 History patch Pain magnesium hydroxide 400 mg/5 mL 30 ml PO DAILY PRN Constipation 05/06/24 08/22/24 History oral suspension (Milk of Magnesia) methylprednisolone 4 mg tablets in See Rx Instructions .Route 05/06/24 05/07/24 Rx a dose pack (Medrol (Tyree)) .COMPLEX #21 ea prednisone 10 mg tablet 10 mg PO DAILY 08/22/24 08/22/24 History Past Med/Surg History Problem List (Updated 08/22/24 @ 02:38 by Cassy Martínez DO) 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) Myocardial infarction type 2 (Acute) AMS (altered mental status) (Acute) Acute UTI (Acute) Complicated acute bronchitis (Acute) S/P ORIF (open reduction internal fixation) fracture Displaced fracture of right femoral neck Right femoral fracture (Acute) Pyelonephritis (Acute) Pyelitis Hypoxia (Acute) Discharge planning issues DVT prophylaxis GERD (gastroesophageal reflux disease) Anxiety Change in mental status (Acute) Urinary tract infection (Acute) Neuroforaminal stenosis of lumbar spine Hand abrasion Back pain Lumbar radiculopathy Greater trochanteric pain syndrome Leg pain, right COPD (chronic obstructive pulmonary disease) (Acute) Abdominal pain (Acute) Abnormal involuntary movements Hypophosphatemia Acute exacerbation of chronic obstructive pulmonary disease (COPD) Acute exacerbation of COPD with asthma Dysphagia Encounter for pre-operative examination Anemia GI bleed COPD (chronic obstructive pulmonary disease) "on home O2" Osteoporosis HTN (hypertension) Peripheral vascular disease Hyperlipidemia GERD (gastroesophageal reflux disease) Anxiety CAD (coronary artery disease) "Minimal non-obstructive CAD by left heart cath 2007" On 12/02/14 16:15 Jaye Nye wrote "Minimal non-obstructive CAD by left heart catherization 2007" Trigger finger History of appendectomy Arthritis of left knee Dysphagia Intractable nausea and vomiting Leg pain, left Weakness Weakness Dysphagia Asymptomatic bilateral carotid artery stenosis "s/p bilateral carotid endarterectomy" History of esophageal stricture Medical History Acute dyspnea Acute exacerbation of chronic obstructive pulmonary disease Acute hypoxemic respiratory failure Opiate overdose Acute CVA (cerebrovascular accident) TIA (transient ischemic attack) alf resident resident of [facility] History of GI bleed History of anemia History of esophageal dilatation Diarrhea Difficulty swallowing PVD (peripheral vascular disease) Osteoporosis Arthritis Anxiety SOB (shortness of breath) on exertion Chronic obstructive pulmonary disease OXYGEN 3-4 L/MIN CONTINUOUSLY CAD (coronary artery disease) F/U DR Angélica LEONARDO Hyperlipidemia Hypertension Surgical History Hx of esophagogastroduodenoscopy "EGD 12/04/11 Dr. Woods- large hiatal hernia. stomach and small intesti ne were normal. esophagus dilated, small tear in the UES" History of left heart catheterization H/O colonoscopy "Colonoscopy 09/06/13 Dr. Woods- sigmoid diverticulosis, internal hemorrhoids, no polyps" On 12/02/14 16:04 Jaye Nye wrote "2011-adenomatous polyp" Status post insertion of iliac artery stent "Right common iliac artery stent and right external iliac artery angioplasty on 06/22/14, Dr. Rodriguez, [facility]" History of hemorrhoidectomy History of knee surgery S/p bilateral carotid endarterectomy H/O vascular surgery RIGHT ILIAC ARTERY STENT PLACEMENT H/O knee surgery History of appendectomy History of esophagogastroduodenoscopy (EGD) History of colonoscopy History of cataract surgery R/L H/O hemorrhoidectomy H/O carotid endarterectomy R/L History of cardiac cath NO STENTS Family History Other No family history of adverse response to anesthesia Social History Smoking Status: Former smoker Age Started Using Tobacco: 20; packs per day: 2; Cigarettes Per Day: 5-10 CIG a day ADVISED; Do You Dip or Chew Tobacco: No; Hx Alcohol Use: No Hx Substance Use: No Preferred Language: Azeri Communication Ability: Effective Communication Ability Comment: confused Yardage Control Operator Forming Required: No Beliefs That Will Affect Care: None marital status: / Current Living Situation: [facility] Current Living Situation Comment: [facility] How many Children do You have: 1 Other Information That Helps Us Care for You: No Feels Safe at Home: Yes Assistive Devices: Oxygen - Continuous and Walker Review of Systems Review of Systems: Unobtainable due to reduced consciousness Physical Exam Physical Exam: General: patient somnolent, opens eyes to verbal and tactile stimuli, answering "yes" or "no" on occasion Skin: warm, dry, intact, no rashes or lesions HEENT: NC/AT, PERRL, anicteric sclera, conjunctiva without injection, external ear normal to inspection and nontender, nares patent, dry mucus membranes, dent ition intact, no oropharyngeal lesions, neck supple, trachea midline, no LAD, no thyromegaly, no JVD Heart: +S1/S2, regular, tachycardic, no m/r/g Lungs: no respiratory distress, +end-inspiratory crackles present, no rhonchi/wheezes Abd: +BS, soft, NT/ND, no masses/organomegaly/ascites Ext: warm, 2+ pulses in UE/LE bilaterally, no clubbing/cyanosis or edema Neuro: somnolent, arousable, follows some commands and answers some questions Results & Data Results & Data Vital Signs (Past 12 Hours) Vital Signs Temp Pulse Pulse Resp BP BP Pulse Ox 08/21/24 23:34 102 H 16 86/56 L 94 08/21/24 23:11 37.6 C H 102 H 18 112/65 96 08/21/24 22:28 106 H 18 106/63 96 08/21/24 22:20 106 H 16 118/71 96 08/21/24 22:19 95 08/21/24 22:03 38.3 C H 110 H 16 111/83 96 08/21/24 22:02 38.3 C H 101 H 14 111/83 96 08/21/24 21:52 109 H O2 Del Method O2 Flow Rate 08/21/24 23:34 Oxymask 7 08/21/24 23:11 Nasal Cannula 5 08/21/24 22:28 Nasal Cannula 5 08/21/24 22:20 Nasal Cannula 5 08/21/24 22:19 Nasal Cannula 5 08/21/24 22:03 Nasal Cannula 5 08/21/24 22:02 Nasal Cannula 5 08/21/24 21:52 Laboratory Results Laboratory Results WBC 8.24 K/ul (4.8-10.8) 08/21/24 21:47 RBC 4.16 M/uL (4.20-5.40) L 08/21/24 21:47 Hgb 11.0 g/dl (12.0-16.0) L 08/21/24 21:47 POC Hgb 11.9 g/dl (12.0-16.0) L 08/21/24 22:01 Hct 35.9 % (37.0-47.0) L 08/21/24 21:47 POC Hct 35 % (37-47) L 08/21/24 22:01 MCV 86.3 fL (80.0-100.0) 08/21/24 21:47 MCH 26.4 pg (25.0-34.0) 08/21/24 21:47 MCHC 30.6 g/dL (32.0-36.0) L 08/21/24 21:47 RDW Std Deviation 42.5 fL (36.4-46.3) 08/21/24 21:47 RDW Coeff of Renetta 13.6 % (11.5-14.5) 08/21/24 21:47 Plt Count 408 K/uL (130-400) H 08/21/24 21:47 MPV 10.3 fL (9.4-12.4) 08/21/24 21:47 Immature Gran % (Auto) 0.2 % 08/21/24 21:47 Neut % (Auto) 70.7 % 08/21/24 21:47 Lymph % (Auto) 17.0 % 08/21/24 21:47 [place] % (Auto) 11.3 % 08/21/24 21:47 Eos % (Auto) 0.1 % 08/21/24 21:47 Baso % (Auto) 0.7 % 08/21/24 21:47 Neut # (Auto) 5.82 K/uL (1.40-6.50) 08/21/24 21:47 Lymph # (Auto) 1.40 K/uL (1.20-3.40) 08/21/24 21:47 [place] # (Auto) 0.93 K/uL (0.11-0.59) H 08/21/24 21:47 Eos # (Auto) 0.01 K/uL (0.00-0.50) 08/21/24 21:47 Baso # (Auto) 0.06 K/uL (0.00-0.20) 08/21/24 21:47 Immature Gran # (Auto) 0.02 K/uL (0.01-0.20) 08/21/24 21:47 VBG pH 7.38 (7.36-7.41) 08/21/24 22:20 VBG pCO2 59 mmHg (38-50) H 08/21/24 22:20 VBG pO2 40 mmHg 08/21/24 22:20 VBG HCO3 35 mmol/L 08/21/24 22:20 VBG O2 Saturation 69.8 % 08/21/24 22:20 VBG Base Excess 7.7 mEq/L 08/21/24 22:20 POC Sodium 136 mmol/L (135-144) 08/21/24 22:01 Sodium 137 mmol/L (136-145) 08/21/24 21:47 POC Potassium 4.8 mmol/L (3.3-5.0) 08/21/24 22:01 Potassium 4.9 mmol/L (3.5-5.1) 08/21/24 21:47 POC Chloride 98 mmol/L (101-112) L 08/21/24 22:01 Chloride 99 mmol/L (98-107) 08/21/24 21:47 Carbon Dioxide 33 mmol/L (21-32) H 08/21/24 21:47 POC Total CO2 29 mmol/L (24-31) 08/21/24 22:01 Anion Gap 5 (3-11) 08/21/24 21:47 POC Anion Gap 16.0 mmol/L (16-25) 08/21/24 22:01 POC BUN 21 mg/dl (7-18) H 08/21/24 22:01 BUN 21 mg/dl (6-23) 08/21/24 21:47 Creatinine 1.04 mg/dl (0.6-1.2) 08/21/24 21:47 POC Creatinine 1.2 mg/dl (0.6-1.3) 08/21/24 22:01 Est Cr Clr Drug Dosing Not Reportable 08/21/24 21:47 eGFR 54.33 08/21/24 21:47 BUN/Creatinine Ratio 20.2 (10-20) H 08/21/24 21:47 Glucose 116 mg/dl (70-99(Fasting)) H 08/21/24 21:47 POC Glucose (other) 117 mg/dl (70-99) H 08/21/24 22:01 Lactate 1.3 mmol/L (0.4-2.0) 08/21/24 22:20 Calcium 8.6 mg/dl (8.6-10.3) 08/21/24 21:47 POC Ioniz Calcium [place] 1.12 mmol/l (1.12-1.32) 08/21/24 22:01 Magnesium 1.9 mg/dl (1.7-2.4) 08/21/24 21:47 Total Bilirubin 0.2 mg/dl (0.2-1.0) 08/21/24 21:47 Direct Bilirubin 0.0 mg/dl (0-0.2) 08/21/24 21:47 AST 15 U/L (13-39) 08/21/24 21:47 ALT 6 U/L (7-52) L 08/21/24 21:47 Alkaline Phosphatase 46 U/L (34-104) 08/21/24 21:47 Troponin I High Sens 396.0 pg/ml (0-14) H* D 08/21/24 23:31 Total Protein 6.0 gm/dl (6.0-8.3) 08/21/24 21:47 Albumin 3.4 gm/dl (3.4-5.0) 08/21/24 21:47 Procalcitonin Cancelled 08/21/24 21:47 Urine Color Yellow 08/21/24 22:00 Urine Appearance Cloudy (Clear) A 08/21/24 22:00 Urine pH 6.0 (4.5-7.5) 08/21/24 22:00 Ur Specific [place] 1.020 (1.000-1.030) 08/21/24 22:00 Urine Protein 1+ (Negative) H 08/21/24 22:00 Urine Glucose (UA) Negative (Negative) 08/21/24 22:00 Urine Ketones Negative (Negative) 08/21/24 22:00 Urine Blood Trace-intact (Negative) H 08/21/24 22:00 Urine Nitrite Negative (Negative) 08/21/24 22:00 Urine Bilirubin Negative (Negative) 08/21/24 22:00 Urine Urobilinogen Negative (Negative) 08/21/24 22:00 Ur Leukocyte Esterase 1+ (Negative) H 08/21/24 22:00 Urine RBC 6-10 /hpf (0-2) H 08/21/24 22:00 Urine WBC 6-10 /hpf (0-5) H 08/21/24 22:00 Ur Epithelial Cells >20 /hpf (0-2) H 08/21/24 22:00 Urine Bacteria 1+ (None Seen) H 08/21/24 22:00 Adenovirus (PCR) Not Detected (NotDetected) 08/21/24 22:08 B. pertussis DNA (PCR) Not Detected (NotDetected) 08/21/24 22:08 B.parapertussis DNA PCR Not Detected (NotDetected) 08/21/24 22:08 C. pneumoniae DNA (PCR) Not Detected (NotDetected) 08/21/24 22:08 Coronavirus OC43 (PCR) Not Detected (NotDetected) 08/21/24 22:08 Coronavirus HKU1 (PCR) Not Detected (NotDetected) 08/21/24 22:08 Coronavirus 229E (PCR) Not Detected (NotDetected) 08/21/24 22:08 SARS-CoV-2 (PCR) Not Detected (NotDetected) 08/21/24 22:08 Coronavirus NL63 (PCR) Not Detected (NotDetected) 08/21/24 22:08 Human Metapneumovir PCR Not Detected (NotDetected) 08/21/24 22:08 Influenza Type A (PCR) Not Detected (NotDetected) 08/21/24 22:08 Influenza Type B (PCR) Not Detected (NotDetected) 08/21/24 22:08 M. pneumoniae (PCR) Not Detected (NotDetected) 08/21/24 22:08 Parainfluenza 1 (PCR) Not Detected (NotDetected) 08/21/24 22:08 Parainfluenza 2 (PCR) Not Detected (NotDetected) 08/21/24 22:08 Parainfluenza 3 (PCR) Not Detected (NotDetected) 08/21/24 22:08 Parainfluenza 4 (PCR) Not Detected (NotDetected) 08/21/24 22:08 RSV (PCR) Not Detected (NotDetected) 08/21/24 22:08 Entero/Rhino (PCR) Not Detected (NotDetected) 08/21/24 22:08 Impressions Abdomen/Pelvis CT 08/21/24 21:53 Exam(s): CT ABDOMEN + PELVIS With Contrast IV Amt: 118 ml optiray 320 EXAM: CT Abdomen and Pelvis With Intravenous Contrast CLINICAL HISTORY: Reason for exam: ams, fever, pain. TECHNIQUE: Axial computed tomography images of the abdomen and pelvis with intravenous contrast. CTDI is 37.78 mGy and DLP is 2032.04 mGy-cm. Automated exposure control was utilized for the study. A dose lowering technique was utilized adhering to the principles of ALARA. CONTRAST: Patient received 118 ml optiray 320 of IV contrast COMPARISON: No relevant prior studies available. FINDINGS: Lung bases: Bibasilar subsegmental atelectasis. ABDOMEN: Liver: Unremarkable. No mass. Gallbladder and bile ducts: Unremarkable. No calcified stones. No ductal dilation. Pancreas: Unremarkable. No mass. No ductal dilation. Spleen: Unremarkable. No splenomegaly. Adrenals: Unremarkable. No mass. Kidneys and ureters: Symmetric renal enhancement. No hydronephrosis. Simple bilateral renal cysts, largest in the right kidney measuring 24 mm; no follow-up indicated. Stomach and bowel: No bowel obstruction. Sigmoid diverticula without diverticulitis. Moderate rectal stool. PELVIS: Appendix: Appendix not identified. Bladder: Bladder wall thickening. Reproductive: Hysterectomy. ABDOMEN and PELVIS: Intraperitoneal space: Unremarkable. No free air, significant free fluid, or fluid collection. Bones/joints: Osteopenia. No acute fracture or dislocation. Prior ORIF right femur. Chronic compression fracture at L1. Soft tissues: Unremarkable. Vasculature: Atherosclerosis without aortic aneurysm. Patent, stented right common iliac artery. Severe stenosis distal abdominal aorta related to calcific plaque (series 12, image 133). Assessment of patency/stenoses in the bilateral iliac arteries is limited by degree of calcific plaquing. Lymph nodes: Unremarkable. No enlarged lymph nodes. IMPRESSION: 1. Severe stenosis distal abdominal aorta related to calcific plaque (series 12, image 133). 2. Bladder wall thickening. Correlate with urinalysis for possible cystitis. 3. Moderate rectal stool. Electronically signed by: García Mg M.D. 08/21/24 23:23 PM Chest CTA 08/21/24 21:53 Exam(s): CTA CHEST IV Amt: 118 ml optiray 320 EXAM: CT Angiography Chest With Intravenous Contrast CLINICAL HISTORY: Reason for exam: PE. TECHNIQUE: Axial computed tomographic angiography images of the chest with intravenous contrast. CTDI is 37.78 mGy and DLP is 2032.04 mGy-cm. Automated exposure control was utilized for the study. A dose lowering technique was utilized adhering to the principles of ALARA. MIP reconstructed images were created and reviewed. COMPARISON: 05/07/24 FINDINGS: Pulmonary arteries: Adequate pulmonary artery opacification. Normal caliber main pulmonary artery. No evidence of acute pulmonary embolism. Aorta: Thoracic aortic atherosclerosis without aneurysm or dissection. Lungs: Emphysema. Bibasilar subsegmental atelectasis. No consolidation or mass. Pleural space: Unremarkable. No significant effusion. No pneumothorax. Heart: Unremarkable. No cardiomegaly. No significant pericardial effusion. Mediastinum: Some retained debris in the esophagus. Bones/joints: Chronic T7 and L1 compression fractures. No acute fracture or dislocation. Soft tissues: Unremarkable. Lymph nodes: Unremarkable. No enlarged lymph nodes. IMPRESSION: No evidence of acute pulmonary embolism. Electronically signed by: García Mg M.D. 08/21/24 23:[address] 08/21/24 21:53 Exam(s): CT HEAD Without Contrast EXAM: CT Head Without Intravenous Contrast CLINICAL HISTORY: Reason for exam: AMS. TECHNIQUE: Axial computed tomography images of the head/brain without intravenous contrast. CTDI is 37.78 mGy and DLP is 2032.04 mGy-cm. Automated exposure control was utilized for the study. A dose lowering technique was utilized adhering to the principles of ALARA. COMPARISON: 03/11/24 FINDINGS: Brain: Age-related parenchymal volume loss. Mild chronic small vessel ischemic change. Rojas-white matter differentiation maintained. No hemorrhage, mass effect, parenchymal edema, or midline shift. Ventricles: Unremarkable. No hydrocephalus. Bones/joints: Unremarkable. No acute fracture. Soft tissues: Unremarkable. Vasculature: Intracranial atherosclerosis. Sinuses: Unremarkable as visualized. Mastoid air cells: Unremarkable as visualized. No mastoid effusion. Orbits: Lens replacements. IMPRESSION: No acute intracranial process. Electronically signed by: García Mg M.D. 08/21/24 23:24 PM ECG Additional Comments: EKG per my interpretation with ST at 109bpm, normal axis, XF=850, QRS=78, DZx=346, no acute ischemic changes Code Status & VTE Plan VTE Prophylaxis Plan VTE Prophylaxis will be ordered: Yes PG Care Time/CCT Total # of Minutes Spent Total Time Spent with Patient: Total time spent is greater than 50% in coordination of care (as documented) at patient's floor/unit and/or counseling patient: Coding Level of Care Code 83949 INT INP/OBS CARE 3/75MIN Diagnoses Sepsis A41.9 Myocardial infarction type 2 I21.A1 Acute UTI N39.0 Chronic obstructive pulmonary disease, unspecified COPD type J44.9 COPD type: unspecified COPD CAD (coronary artery disease) I25.10 (4) COPD (chronic obstructive pulmonary disease) COPD type: unspecified COPD Qualified Code(s): J44.9 - Chronic obstructive pulmonary disease, unspecified
[2024-08-22 01:30] LABS: Thyroid Stimulating Hormone 0.97 uIu/ml (0.300-4.500)
[2024-08-22] MEDS ORDERED: ALBUTEROL 0.083% NEBU SOLN 3 ML VIAL INH PRN (02:27)
[2024-08-22] MEDS ORDERED: bisacodyL 10 MG SUPP PR PRN (02:27)
--- OUTSIDE RECORDS SUMMARY | 2024-08-22 05:04 | External Medical Summary | Summary of Care ---
Author Name Unknown Organization [facility] Address [address] [place] [address] Phone [phone] Care Team Providers Care Shuttlecock Assembler Name Role Phone Marguerite SERRA MD, Moiz Mcmanus Primary Care Pr ovider Encounter Details Date Type Department Care Team (Late st Contact Info) Description 08/14/2024 Orders Only Outcomes Research Department [address], [place] [id number] Rosa Troy CHRA MyCode Research Other*[id number] Allergies Active Allergy Reactions Criticality Noted Date Comments Cortisone Edema Other High 08/15/2002 Corticosteriods Other reaction(s): swelling Metoclopramide High 02/19/2022 Other reaction(s): "lungs collapsed" Other Allergy (See Comments) High 02/19/2022 Other reaction(s): swelling Metoclopramide Hcl Neuro complications (Please comment) Low 05/28/2010 Lip quivering Salicylates Low 02/19/2022 Other reaction(s): caused bleeding, can take EC aspirin documented as of this encounter (statuses as of 08/14/2024) Medications Medication Sig Dispensed Refills Start Date End Date Status Nebulizers (NEBULIZER COMPRESSOR) MISCIndications: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 MAXIMUM 3 TABLETS DAILY 90 Tablet 02/06/2022 Active guaiFENesin 100 MG/5ML Oral Liquid (Robitussin) Take by mouth 10 mL before bedtime. 1000 mL 1 04/24/2022 Active Bisacodyl 10 MG Rectal Suppository Administer 1 Suppository into the rectum in the morning. Active Fleet Enema Rectal Enema Administer into the rectum . Active Pantoprazole Sodium 40 MG Oral Tablet Delayed Release (Protonix) Take 1 Tablet by mouth in the morning. Active Tylenol 325 MG Oral Capsule (Acetaminophen) Take by mouth . Give two tablets every six hours as needed for fever Active oxygen IN GASIndications:Hypox emia,COPD, moderate (HCC) 3 LPM via NC while awake, 2 LPM during sleep, maintain sats 90-94% 1 Each 09/09/2022 Active busPIRone HCl 7.5 MG Oral Tablet (Buspar) 12/21/2022 Acti ve Clopidogrel Bisulfate 75 MG Oral Tablet (pLAVix) 12/21/2022 Active Diclofenac Sodium 1 % External Gel (Voltaren) 12/15/2022 Active Escitalopram Oxalate 5 MG Oral Tablet (Lexapro) 12/21/2022 Active fentaNYL 12 MCG/HR Transdermal Patch 72 Hour (Duragesic) Place 1 Patch topically on the skin every 3 days. Active Lidocaine 4 % External Patch (Aspercreme) Place 1 Patch topically on the skin daily. Active Loratadine 10 MG Oral Capsule Take 1 Capsule by mouth in the morning. Active oxyCODONE HCl 10 MG Oral Tablet (Roxicodone) Take 1 Tablet by mouth every 6 hours as needed. Active predniSONE 10 MG Oral Tablet (Deltasone) Take 1 Tablet by mouth in the morning. Active Gabapentin 300 MG Oral Capsule (Neurontin) Take 1 Capsule by mouth in the morning and 1 Capsule at noon and 1 Capsule before bedtime. Active predniSONE 20 MG Oral Tablet (Deltasone) 2 tablets by mouth daily for 5 days. 10 Tablet 12/24/2023 Active Albuterol Sulfate (2.5 MG/3ML) 0.083% Inhalation Nebulization Solution (Proventil) 03/05/2024 Acti ve Budeson-Glycopyrrol- Formoterol 160-9-4.8 MCG/ACT Inhalation Aerosol 2 times a day. 09/28/2023 Active Methenamine Hippurate 1 GM Oral Tablet (Hiprex) 03/25/2024 Active Nystatin 330606 UNIT/ML Mouth/Throat Suspension 5 mL. 09/28/2023 Active Phenazopyridine HCl 200 MG Oral Tablet (Pyridium) 03/07/2024 Active Oxymetazoline HCl 0.05 % Nasal Solution (Afrin 12 Hour) Administer 2 Sprays into nostril in the morning and 2 Sprays before bedtime. Active Ascorbic Acid 1000 MG Oral Tablet Take by mouth. Active Ipratropium-Albutero l 0.5-2.5 (3) MG/3ML Inhalation Solution (Duoneb) Inhale 3 mL by mouth every 6 hours as needed. Active Loperamide HCl 2 MG Oral Tablet (Immodium (A-D)) Take 1 Tablet by mouth 4 times a day as needed for Diarrhea. Active Magnesium Hydroxide 400 MG/5ML Oral Suspension (Milk of Magnesia) Take by mouth daily as needed for Constipation. Active oxyCODONE HCl 5 MG Oral Capsule (Oxy IR) Take 1 Capsule by mouth every 4 hours as needed. Active documented as of this encounter (statuses as of 08/14/2024) Active Problems Problem Noted Date Diagnosed Date [...] as of this encounter (statuses as of 08/14/2024) Resolved Problems Problem Noted Date Diagnosed Date [...] as of this encounter (statuses as of 08/14/2024) Immunizations Name Administration Dates Next Due COVID-19 mRNA, LNP-s, No Pre serve, 2-Dose Series (Pfizer) 08/27/2021,12/19/2020,11/28/2020 Pneumococcal Conjugate Vacc, 13 Valent (Prevnar) 07/10/2015 Pneumococcal Polysaccharide PPV23 (Pneumovax) 09/01/2017,04/20/2007 Seasonal Influenza Vac., MDV , IM, 0.5 mL (Fluzone) 07/10/2015,08/01/2014,07/07/2013,06/25,07/06/2011,07/14/2010,07/18/20 09,08/30/2008,08/17/2007 Seasonal Influenza, PF, 6 M & above, IM , (FluLaval or Fluzone) 07/27/2022,07/17/2020,07/20/2019,04/2018,07/30/2017 07/01/2019 Seasonal Influenza, Quadriva lent Hd (Fluzone Hd) 07/09/2021 Seasonal Influenza, Quadriva lent, No Preserve, IM 09/09/2016 TDAP, Age 7 and older, IM (Adacel) 04/19/2008 Varicella Zoster Vaccine (Adult) 10/07/2012 documented [...] in the Last Year Never true 10/24/2019 Utilities Answer Date Recorded Do you have trouble paying y our heating, water, or electric bill? (Adult - for ages 18 years and over) Not on file 04/11/2024 Is your family able to pay t he heat, water, or electric bill? (Household - for ages 0-17 years) Not on file 04/11/2024 Does your family have access to good internet? (Household - for ages 0-17 years) Not on file 04/11/2024 Social Connections Answer Date Recorded How often do you feel lonely or isolated from those around you? (Adult - for ages 18 years and over) Not on file 04/11/2024 Sex and Gender Information Value Date Recorded [...] PM EST [facility] [address] [place] [phone] Aishwarya Jacobo CRNP [address] [place] [address] 01/31/2025 10:00 AM EDT Office Visit Rhe[facility] [address] [place] [address] Janett Woods CRNP [address] [place] [address] Scheduled Orders Name Type Priority Associated Diagnoses Orde r Schedule MYCODE SUBSEQUENT ADULT Lab Routine MyCode Research Other*[id number] Every 6 Months for 2 Occurrences starting 08/14/2024 until 09/03/2025 Health Maintenance Due Date Last Done Comments Albumin/Creatinine Ratio 1962 Zoster Vaccines (2 of 3) 12/02/2012 10/07/2012 DTap/Tdap Vaccines (2 - Td or Tdap) 04/19/2018 04/19/2008 COVID-19 Vaccine ( season) 2024 08/27/2021, 12/19/2020, 11/28/2020 Influenza Vaccine (FLU shot) (#1) 2024 07/27/2022, 07/27/2022, 07/09/2021, Additional history exists O2 ASSESSMENT COMPLETED IN PAST YEAR FOR COPD 12/23/2024 12/24/2023 Depression Screening 01/24/2025 01/25/2024 GFR 02/14/2025 02/15/2024, 02/22, 04/23/2021, Additional history exists DXA Scan 03/01/2025 03/01/2023, 05/25, 05/09/2018, Additional history exists Pneumococcal Vaccine: 65+ Years Completed 09/01/2017, 07/10/2015, 04/20/2007 Alpha-1 Antitrypsin Completed 07/17/2020 VITAMIN D LEVEL ONCE IN A LIFETIME-USE SMARTSET# [id number] Completed 04/23/2021, 07/17/2020, 08/24/2019, Additional history exists Lung Cancer Screening Completed 04/25/2021 , 01/20/2021, 06/22/2019, Additional history exists HPV (Gardasil) Vaccine Aged Out No lo nger eligible based on patient's age to complete this topic Hepatitis B Vaccine Aged Out No longe r eligible based on patient's age to complete this topic MENINGOCOCCAL (MENACTRA/MENVEO) Aged Out No longer eligible based on patient's age to complete this topic documented as of this encounter Medical Devices Implanted Type Area Probate Judge Device Identifier Shelf Expiration Date Model / Serial / Lot Stent [employer]urant [id number] - [id number] Implanted:Qty: 1 on 06/22/2014 at [facility] Right: Iliac [employer] : VASCULAR 12/07/2015 [id number] / / [id number] documented as of this encounter Visit Diagnoses Diagnosis MyCode Research Other*[id number] documented in this encounter Advance Directives * Full Code (Latest Code Status on File) Date Activated Date Inactivated Comments 06/22/2014 1:40 PM 06/23/2014 1:30 PM Question Answer Comments Discussion of Advance Directives occurred with: Not Discussed Does the patient have a Living Will? No Does the patient have Health Care Power of Attor javier? No Healthcare Agents on File Name Relationship Healthcare Agent Relationship Communication Sussy Lui Other - (no specific identity) Second Alternate Health Care Agent Katrina Nichols Adult Child Power of Oven Operator Care Teams Shuttlecock Assembler Relationship Specialty Start Date End Date Moiz Everett III, MD [address] [place] [address] PCP - General Internal Medicine 09/09/22 documented as of this encounter
[2024-08-22] MEDS: FORMOTEROL 20 MCG/2 ML VIAL INH SCH (07:10)
[2024-08-22] MEDS: ALBUT/IPRATROP 3MG/0.5MG NEB 3 ML VIAL INH SCH (07:10)
[2024-08-22] MEDS: BUDESONIDE 0.5 MG/2 ML VIAL (PULMICORT) INH SCH (07:10)
[2024-08-22 07:25] LABS: Hematocrit (blood only) 33.2 % (37.0-47.0); Mean Corpuscular Hemoglobin 26.3 pg (25.0-34.0); Mean Corpuscular Hgb Conc 30.1 g/dL (32.0-36.0); Mean Corpuscular Volume 87.4 fL (80.0-100.0); Mean Platelet Volume 10.5 fL (9.4-12.4); Platelet Count 363 K/uL (130-400); RDW Coefficient of Variation 13.7 % (11.5-14.5); RDW Standard Deviation 43.8 fL (36.4-46.3); White Blood Count 7.07 K/ul (4.8-10.8)
[2024-08-22 07:40] LABS: BUN Creatinine Ratio 24.4 (10-20); Calcium 7.9 mg/dl (8.6-10.3); Creatinine Clr Calc Pharmacy 41.3 ml/min; Potassium 3.9 mmol/L (3.5-5.1)
--- NOTE | 2024-08-22 07:51 | XRay Report ---
XR chest 1V portable CLINICAL HISTORY: Sepsis TECHNIQUE: Single frontal radiograph of the chest was obtained. Comparison: Comparison is made to chest radiograph 05/07/2024 FINDINGS: No lines and tubes are seen. Calcified aortic knob is seen. The lungs are clear. No evidence of pleur al effusion or pneumothorax. IMPRESSION: No acute chest disease. ACT 112: Negative or not required by law. Electronically signed by: Ritesh Izquierdo M.D. 08/22/2024 7:50 AM
[2024-08-22] MEDS: GABAPENTIN 300 MG CAP PO SCH (08:46)
[2024-08-22] MEDS: ESCITALOPRAM OXALATE 10 MG TAB PO SCH (08:46)
[2024-08-22] MEDS: fentaNYL 25 MCG/HR TDSY TD SCH (08:46)
[2024-08-22] MEDS: FAMOTIDINE 20 MG TAB PO SCH (08:46)
[2024-08-22] MEDS: clonazePAM 0.5 MG TAB PO SCH (08:46)
[2024-08-22] MEDS: predniSONE 10 MG TABLET PO SCH (08:46)
[2024-08-22] MEDS: CLOPIDOGREL BISULFATE 75 MG TAB PO SCH (08:46)
[2024-08-22] MEDS: PANTOprazole 40 MG TAB PO SCH (08:47)
[2024-08-22] MEDS: FLUTICASONE PROPIONATE NA SPR 16 GM BTL SCH (08:47)
[2024-08-22] MEDS: guaiFENesin 600 MG TABCR PO SCH (08:47)
[2024-08-22] MEDS: busPIRone 7.5 MG TAB PO SCH (08:47)
[2024-08-22] MEDS: LORATADINE 10 MG TAB PO SCH (08:47)
[2024-08-22] MEDS: Heparin IV Adult Wt-Based Standard *NO* INITIAL Bolus Protocol IV STA (08:48)
[2024-08-22] MEDS: DICLOFENAC SOD 1% GEL 100 GM TUBE EXT SCH ×2 (08:48→09:00)
[2024-08-22] MEDS: CHECK fentaNYL PATCH PLACEMENT SCH (08:49)
[2024-08-22] MEDS: HEPARIN SODIUM/DEXTROSE 25,000 UNITS/500 ML BAG IV SCH (09:16)
[2024-08-22] MEDS: ACETAMINOPHEN 325 MG TAB PO PRN (09:45)
[2024-08-22 09:54] LABS: Basophils # (auto) 0.04 K/uL (0.00-0.20); Basophils % (auto) 0.7 %; Eosinophils % (auto) 1.6 %; Hematocrit (blood only) 32.3 % (37.0-47.0); Hemoglobin 9.7 g/dl (12.0-16.0); Immature Granulocytes # (auto) 0.02 K/uL (0.01-0.20); Immature Granulocytes % (auto) 0.3 %; Lymphocytes # (auto) 1.15 K/uL (1.20-3.40); Lymphocytes % (auto) 18.8 %; Mean Corpuscular Hemoglobin 26.4 pg (25.0-34.0); Mean Platelet Volume 10.4 fL (9.4-12.4); Monocytes # (auto) 0.78 K/uL (0.11-0.59); Monocytes % (auto) 12.7 %; Neutrophils # (auto) 4.04 K/uL (1.40-6.50); Neutrophils % (auto) 65.9 %; Platelet Count 336 K/uL (130-400); RDW Coefficient of Variation 13.7 % (11.5-14.5); RDW Standard Deviation 44.3 fL (36.4-46.3); Red Blood Count 3.67 M/uL (4.20-5.40); White Blood Count 6.13 K/ul (4.8-10.8)
[2024-08-22 10:26] LABS: Partial Thromboplastin Ratio 0.9; Partial Thromboplastin Time 25 Seconds (21-31); Prothrombin Time 11.2 Seconds (9.0-12.0)
--- NOTE | 2024-08-22 11:17 | Electrocardiogram Report ---
Test Reason : Blood Pressure : */* mmHG Vent. Rate : 109 BPM Atrial Rate : 109 BPM P-R Int : 148 ms QRS Dur : 78 ms QT Int : 346 ms P-R-T Axes : 63 7 48 degrees QTcB Int : 465 ms Sinus tachycardia Cannot rule out Inferior infarct (cited on or before 09-May-2024) Abnormal ECG When compared with ECG of 09-May-2024 11:09, No significant change was found Confirmed by Jadon Lebron ([id number]) on 08/22/2024 11:17:36 AM Referred By: [facility] Confirmed By: Jadon Lebron
--- NOTE | 2024-08-22 11:23 | Hospitalist Progress Note ---
Date of Service August 22, 2024 Assessment & Plan (1) Sepsis: Plan: This is an 79yo female with history of severe COPD, Chronic hypoxemic respiratory failure on 3L O2 at baseline, CAD, HTN and HLP presenting with worsening confusion. Met criteria for sepsis present on admission with Tm=38.3, XK=750. Patient with history of recurrent UTIs - on Methenamine for suppression. Prior urine cultures with VRE. -Follow urine cultures and blood cultures -Maintain isolation precautions -Continue Daptomycin -Tylenol PRN (2) Myocardial infarction type 2: Plan: Patient with elevated troponin, no report of chest pain. No acute ischemic changes on EKG. Likely Type II NSTEMI in setting of hypoxia and sepsis. -Telemetry monitoring -Trend troponin -Started IV heparin Hold off on cardiology consult for now (3) Acute UTI: Plan: Patient with acute UTI - history of VRE -Follow cultures -Continue Daptomycin -Hold Crestor while on Daptomycin (4) COPD (chronic obstructive pulmonary disease): Plan: Patient with chronic hypoxic respiratory failure on 3L home oxygen. Presently with adequate oxygenation on Oxymask 1L/min. Reduced air entry on auscultation -Continue supplemental O2 - goal saturation 99-92% -Continue Albuterol/Ipratopium scheduled and PRN -Budesonide and Formoterol -continue PO prednisone -Continue Guaifenesin (5) CAD (coronary artery disease): Plan: Patient with elevated troponin. No STEMI on EKG. No report of chest pain -Continue Plavix -Holding Crestor Plan continue to monitor in the hospital DNR/DNI Heparin Admission and Anticipated Discharge Date Admission Date: August 21, 2024 Subjective patient seen and examined, in mild resp distress, however, denies chest pain Review of Systems Review of Systems: All systems reviewed are negative, apart from the ones contained in the history. Physical Exam Physical Exam: The patient is awake, alert and oriented 3, well developed and well nourished, normocephalic and atraumatic, lying in bed and in no acute distress. HEENT--PERRL, EOMI, mucous membranes and oropharynx mildly dry Neck--supple. No JVD. No bruits. Thyroid normal, trachea midline, no adenopathy. Heart--normal S1 and S2. No murmurs, rubs or gallops. Lungs--reduced air entry on auscultation Abdomen--normal bowel sounds and soft. Extremities--no cyanosis or clubbing. No edema. Dermatologic--normal skin turgor, normal color, no abnormal lymph nodes, no rash. Neurologic--cranial nerves II through XII grossly intact. Rheumatologic--normal range of motion. Psychiatric--normal affect. Results & Data Results & Data Vital Signs (Past 12 Hours) Vital Signs Temp Pulse Pulse Resp BP BP Pulse Ox 08/22/24 11:11 98.6 F 91 H 22 112/67 93 08/22/24 10:33 18 95 08/22/24 08:13 98.4 F 92 H 20 99/59 L 99 08/22/24 08:00 100 H 08/22/24 08:00 08/22/24 07:56 98.4 F 92 H 20 99/59 L 99 08/22/24 07:10 95 H 18 98 08/22/24 02:25 97.9 F 95 H 20 110/69 91 08/22/24 00:59 101 H 08/22/24 00:42 97.9 F 98 H 20 118/67 92 08/22/24 00:32 93 H 18 102/62 95 08/22/24 00:00 96 H 20 112/75 97 08/21/24 23:45 99 H 18 133/65 99 08/21/24 23:34 102 H 16 86/56 L 94 O2 Del Method O2 Flow Rate 08/22/24 11:11 Nasal Cannula 2 08/22/24 10:33 Nasal Cannula 2 08/22/24 08:13 Nasal Cannula 2 08/22/24 08:00 08/22/24 08:00 Nasal Cannula 3 08/22/24 07:56 Oxymask 2 08/22/24 07:10 Oxymask 2 08/22/24 02:25 Oxymask 2 08/22/24 00:59 08/22/24 00:42 Oxymask 1 08/22/24 00:32 Oxymask 1 08/22/24 00:00 Oxymask 1 08/21/24 23:45 Oxymask 7 08/21/24 23:34 Oxymask 7 PG Care Time/CCT Total # of Minutes Spent Total Time Spent with Patient: Total time spent is greater than 50% in coordination of care (as documented) at patient's floor/unit and/or counseling patient: Coding Level of Care Code 35217 SUB INP/OBS CARE MIN Diagnoses Sepsis A41.9 Myocardial infarction type 2 I21.A1 Acute UTI N39.0 Chronic obstructive pulmonary disease, unspecified COPD type J44.9 COPD type: unspecified COPD CAD (coronary artery disease) I25.10 Time Spent (min) 35 (4) COPD (chronic obstructive pulmonary disease) COPD type: unspecified COPD Qualified Code(s): J44.9 - Chronic obstructive pulmonary disease, unspecified
--- NOTE | 2024-08-22 11:29 | Electrocardiogram Report ---
Test Reason : Blood Pressure : */* mmHG Vent. Rate : 86 BPM Atrial Rate : 86 BPM P-R Int : 152 ms QRS Dur : 86 ms QT Int : 394 ms P-R-T Axes : 59 34 46 degrees QTcB Int : 471 ms Sinus rhythm with Premature atrial complexes Otherwise normal ECG When compared with ECG of 21-Aug-2024 21:56, (unconfirmed) Premature atrial complexes are now Present Confirmed by Jadon Lebron ([id number]) on 08/22/2024 11:28:36 AM Referred By: [facility] Confirmed By: Jadon Lebron
[2024-08-22 15:47] LABS: A calco-baum cmplx NotReported Not Detected (NotDetected); Bact fragilis Not Reported Not Detected (NotDetected); Blood Culture Id Panel See PCR Comment (NotDetected); C auris Not Reported Not Detected (NotDetected); Calbicans Not Reported Not Detected (NotDetected); Candida glabrata Not Reported Not Detected (NotDetected); Candida krusei Not Reported Not Detected (NotDetected); Cneoformans/gatti Not Reported Not Detected (NotDetected); Cparapsilosis Not Reported Not Detected (NotDetected); E cloacae compx Not Reported Not Detected (NotDetected); Efaecalis Not Reported Not Detected (NotDetected); Efaecium Not Reported Not Detected (NotDetected); Enterobacterales Not Reported Not Detected (NotDetected); Escherichia coli Not Reported Not Detected (NotDetected); H influenzae Not Reported Not Detected (NotDetected); K aerogenes Not Reported Not Detected (NotDetected); Koxytoca Not Reported Not Detected (NotDetected); Kpneumoniae grp Not Reported Not Detected (NotDetected); Lmonocyt Not Reported Not Detected (NotDetected); N meningitidis Not Reported Not Detected (NotDetected); P aeruginosa Not Reported Not Detected (NotDetected); Proteus spp Not Reported Not Detected (NotDetected); Salmonella spp Not Reported Not Detected (NotDetected); Staph lugdunensis Not Reported Not Detected (NotDetected); Staph spp. Not Reported DETECTED (NotDetected); Staphaureus Not Reported DETECTED (NotDetected); Staphepi Not Reported Not Detected (NotDetected); Staphylococcus spp. DETECTED (NotDetected); Stenmaltophilia Not Reported Not Detected (NotDetected); Strep agal(GrpB) Not Reported Not Detected (NotDetected); Strep pneum Not Reported Not Detected (NotDetected); Strep pyog (GrpA) Not Reported Not Detected (NotDetected); Strep spp Not Reported Not Detected (NotDetected)
[2024-08-22 15:49] LABS: ANTI-Xa, UFH(UnfractionatedHep 0.54 IU/ml (0.3-0.7)
[2024-08-22 15:52] LABS: mecAC+MREJ Resistant Gene MRSA DETECTED (NotDetected)
[2024-08-22] MEDS: POLYETHYLENE (MIRALAX) 17 GM PACK PO PRN (16:21)
[2024-08-22] MEDS: DAPTOmycin 300 MG in SYRINGE 0 ML IV SCH (20:39)
[2024-08-22] MEDS: oxyCODONE HCL IR 5 MG TAB (IMMEDIATE RELEASE) PO PRN (22:16)
[2024-08-22] MEDS: HYDROmorphone INJ 0.5 MG/0.5 ML SYR IV ONE (23:26)
--- NOTE | 2024-08-23 08:00 | Hospitalist Progress Note ---
Date of Service August 23, 2024 Assessment & Plan (1) Sepsis: Plan: This is an 79yo female with history of severe COPD, Chronic hypoxemic respiratory failure on 3L O2 at baseline, CAD, HTN and HLP presenting with metabolic encephalopathy Met criteria for sepsis from urinary source present on admission with Tm=38.3, PU=614. Patient with history of recurrent UTIs - on Methenamine for suppression. Prior urine cultures with VRE. blood cultures preliminary Gr + concern for MRSA -Follow urine cultures and blood cultures, urine is contaminated -Continue Daptomycin ( hold Crestor) -Tylenol PRN (2) Myocardial infarction type 2: Plan: Patient with elevated troponin, no report of chest pain. No acute ischemic changes on EKG. Likely Type II NSTEMI in setting of hypoxia and sepsis. -troponin to the 600's concern for NSTEMI< on heparin gtt x 48 hours (3) COPD (chronic obstructive pulmonary disease): Plan: Patient with chronic hypoxic respiratory failure on 3L home oxygen. Presently with adequate oxygenation on Oxymask 1L/min. Reduced air entry on auscultation -Continue supplemental O2 - goal saturation 99-92% -Continue Albuterol/Ipratopium scheduled and PRN -Budesonide and Formoterol -continue PO prednisone -Continue Guaifenesin (4) CAD (coronary artery disease): Plan: Patient with elevated troponin. No STEMI on EKG. No report of chest pain -Continue Plavix -Holding Crestor Plan continue to monitor in the hospital DNR/DNI Heparin Admission and Anticipated Discharge Date Admission Date: August 21, 2024 Subjective pleasantly confused, little interaction, does not appear in distress not oriented Physical Exam Physical Exam: reasonable lung exam despite lack of cooperation cardiac is regular abd is soft Results & Data Results & Data Vital Signs (Past 12 Hours) Vital Signs Temp Pulse Pulse Resp BP Pulse Ox O2 Del Method 08/23/24 07:33 98.1 F 73 16 135/68 100 Nasal Cannula 08/23/24 07:11 71 18 99 Nasal Cannula 08/23/24 02:40 97.9 F 73 18 121/68 98 Nasal Cannula 08/22/24 22:00 97.7 F 96 H 22 131/67 96 Nasal Cannula 08/22/24 21:49 98 H O2 Flow Rate 08/23/24 07:33 2.5 10/30/24 07:11 2 08/23/24 02:40 2 08/22/24 22:00 2 08/22/24 21:49 Laboratory Results ordered cbc and chemistry for am PG Care Time/CCT Total # of Minutes Spent Total Time Spent with Patient: Total time spent is greater than 50% in coordination of care (as documented) at patient's floor/unit and/or counseling patient: Coding Level of Care Code 04981 SUB INP/OBS CARE 3/50MIN Diagnoses Sepsis A41.9 Myocardial infarction type 2 I21.A1 Chronic obstructive pulmonary disease, unspecified COPD type J44.9 COPD type: unspecified COPD CAD (coronary artery disease) I25.10 (3) COPD (chronic obstructive pulmonary disease) COPD type: unspecified COPD Qualified Code(s): J44.9 - Chronic obstructive pulmonary disease, unspecified
--- NOTE | 2024-08-24 07:27 | Hospitalist Progress Note ---
Date of Service August 24, 2024 Assessment & Plan (1) Sepsis: Plan: This is an 79yo female with history of severe COPD, Chronic hypoxemic respiratory failure on 3L O2 at baseline, CAD, HTN and HLP presenting with metabolic encephalopathy Met criteria for sepsis from urinary source present on admission with Tm=38.3, PE=729. Patient with history of recurrent UTIs - on Methenamine for suppression. Prior urine cultures with VRE. blood cultures preliminary Gr + concern for MRSA -Follow urine cultures and blood cultures, urine is contaminated, echo without large vegetation, repeat blood cx 08/24/24 -Continue Daptomycin ( hold Crestor) -Tylenol PRN (2) Myocardial infarction type 2: Plan: Patient with elevated troponin, no report of chest pain. No acute ischemic changes on EKG. Likely Type II NSTEMI in setting of hypoxia and sepsis. -troponin to the 600's concern for NSTEMI< on heparin gtt x 48 hours (3) COPD (chronic obstructive pulmonary disease): Plan: Patient with chronic hypoxic respiratory failure on 3L home oxygen. Presently with adequate oxygenation on Oxymask 1L/min. Reduced air entry on auscultation -Continue supplemental O2 - goal saturation 99-92% -Continue Albuterol/Ipratopium scheduled and PRN -Budesonide and Formoterol -continue PO prednisone -Continue Guaifenesin (4) CAD (coronary artery disease): Plan: Patient with elevated troponin. No STEMI on EKG. No report of chest pain -Continue Plavix -Holding Crestor Plan with gram positive bacteremia, check blood culture to clear and . although transthoracic, was without echo vegetation goals of care discussion had with daughter on 08/24/24, is DNR but not ready at this time to enter palliative care mode. DNR/DNI Heparin nd Admission and Anticipated Discharge Date Admission Date: August 21, 2024 Subjective pleasantly confused, does not appear in distress conversational, but still confused Physical Exam Physical Exam: Pt is conversant c/o some ashia pain is on chronic pain control lungs are with poor air movement but otherwise clear Results & Data Results & Data Vital Signs (Past 12 Hours) Vital Signs Temp Pulse Pulse Resp BP Pulse Ox O2 Del Method 08/24/24 06:54 95 H 16 97 Nasal Cannula 08/24/24 03:53 97.9 F 89 18 126/71 93 Nasal Cannula 08/23/24 22:57 78 08/23/24 22:55 97.3 F L 80 18 113/58 L 94 Nasal Cannula 08/23/24 21:10 Nasal Cannula 08/23/24 19:44 90 17 93 Nasal Cannula 08/23/24 19:35 98.2 F 94 H 19 108/62 96 Nasal Cannula O2 Flow Rate 08/24/24 06:54 2 08/24/24 03:53 2 08/23/24 22:57 08/23/24 22:55 2 08/23/24 21:10 2.5 08/23/24 19:44 2 08/23/24 19:35 2.5 Laboratory Results review cbc review chemistry PG Care Time/CCT Total # of Minutes Spent Total Time Spent with Patient: Total time spent is greater than 50% in coordination of care (as documented) at patient's floor/unit and/or counseling patient: Coding Level of Care Code 16762 SUB INP/OBS CARE 3/50MIN Diagnoses Sepsis A41.9 Myocardial infarction type 2 I21.A1 Chronic obstructive pulmonary disease, unspecified COPD type J44.9 COPD type: unspecified COPD CAD (coronary artery disease) I25.10 (3) COPD (chronic obstructive pulmonary disease) COPD type: unspecified COPD Qualified Code(s): J44.9 - Chronic obstructive pulmonary disease, unspecified
[2024-08-24 07:46] LABS: Hematocrit (blood only) 31.2 % (37.0-47.0); Hemoglobin 9.6 g/dl (12.0-16.0); Mean Corpuscular Hemoglobin 26.4 pg (25.0-34.0); Mean Corpuscular Hgb Conc 30.8 g/dL (32.0-36.0); Mean Corpuscular Volume 85.7 fL (80.0-100.0); Mean Platelet Volume 10.6 fL (9.4-12.4); Platelet Count 345 K/uL (130-400); RDW Coefficient of Variation 13.6 % (11.5-14.5); RDW Standard Deviation 42.8 fL (36.4-46.3); Red Blood Count 3.64 M/uL (4.20-5.40)
[2024-08-24 08:05] LABS: BUN Creatinine Ratio 16.9 (10-20); Calcium 8.5 mg/dl (8.6-10.3); Creatinine Clr Calc Pharmacy 54.6 ml/min; Potassium 3.9 mmol/L (3.5-5.1)
[2024-08-24] MEDS: ONDANSETRON INJ 2 MG/ML 2 ML VIAL IV PRN (10:40)
--- NOTE | 2024-08-24 12:13 | XCELERA ---
[id number] \\[id number]
[2024-08-24] MEDS: HEPARIN SOD 5,000 UNIT/0.5 ML VIAL SQ SCH (21:22)
[2024-08-24] MEDS: clonazePAM 0.5 MG TAB PO SCH (21:23)
[2024-08-25] MEDS: MoRPHine SULFATE 2 MG/ML CARP IV STA (16:57)
--- NOTE | 2024-08-25 19:27 | Hospitalist Progress Note ---
Date of Service August 25, 2024 Assessment & Plan (1) Sepsis: Plan: 79 years old female with history of DNR/DNI @ [facility] ([place]), hyperlipidemia, HTN, vancomycin-resistant Enterococcus faecium-associated UTI (as noted on 05/12/2024 urine culture), and former tobacco abuse with subsequent development of chronic hypoxic respiratory failure due to end-stage COPD on 3 liters/minute O2 via nasal cannula [id number] @ [facility] ([place], [place]), who was admitted to the inpatient hospitalist service @ [facility] on 08/21/2024 with the following diagnoses: 1. Sepsis of unclear etiology with coincident MRSA bacteremia, R/O acute atka valve endocarditis. 2. Acute toxic metabolic encephalopathy of unclear etiology with coincident MRSA bacteremia, R/O daptomycin-mediated myopathy versus acute lumbar vertebral osteomyelitis, given patient's complaints of intractable lumbago on 08/25/2024, unrelieved by oxycodone IR 5mg PO q4 prn pain on 08/25/2024. To address #1, patient was started on cefepime 2g IV x1 dose (08/21/2024, 9:58pm) and daptomycin 300mg IV daily (08/21/2024, 9:56pm), followed by daptomycin 400mg IV daily (08/25/2024, 9:00pm). Await RICHARDSON with Anesthesiology Service evaluation (given patient's chronic hypoxic respiratory failure due to end-stage COPD on 3 liters/minute O2 via nasal cannula [id number]), both in the 08/26/2024 am. To address #2, patient awaits CK level testing (08/25/2024, 7:46pm) to address patient's complaints of intractable lumbago on 08/25/2024, and recognizing that a common side effect of daptomycin is myopathy/neuropathy. In addition, patient awaits ESR/CRP level testing to address patient's complaints of intractable lumbago on 08/25/2024, and recognizing that there may be an infectious etiology for patient's intractable lumbago. cf., ESR levels are frequently in excess of 100 mm/hr in cases of acute vertebral osteomyelitis. (2) Myocardial infarction type 2: Plan: Etiology of troponin elevations is most likely due to demand ischemia, which in turn, is due to (a) sepsis of unclear etiology, and/or (b) chronic hypoxic respiratory failure due to end-stage COPD on 3 liters/minute O2 via nasal cannula [id number] @ [facility] ([place], [place]). cf., Troponin #1 555.1 pg/mL (08/22/2024, 9:33am). cf., Troponin #2 439.4 pg/mL (08/24/2024, 7:22am). cf., EKG #1 (08/21/2024, 9:56pm): sinus tach @ 109, HI 148, QTC 465, TWI in V2, V3; no acute ST elevations/depressions (by my review). cf., EKG #2 (08/22/2024, 8:23am): NSR @ 86, HI 152, QTC 471, TWI in V2; no acute ST elevations/depressions (by my review). cf., TTE (08/24/2024, 8:21am): 1. LV systolic function normal. 2. No large valvular vegetations, but small vegetations specifically on the MV could not be definitively excluded. 3. LA size normal. 4. No pericardial effusion. (as per CARDS Dr. Jadon Lebron). The absence of LV wall motion abnormalities on TTE (08/24/2024, 8:21am) makes acute NSTEMI unlikely in this patient. Hence, this patient does not receive heparin infusion or lovenox 1mg/kg SQ q12. Hence, I have opted to observe this laboratory anomaly of elevated troponins while patient remains in [facility]. (3) COPD (chronic obstructive pulmonary disease): Plan: Patient suffers from chronic hypoxic respiratory failure due to end-stage COPD on 3 liters/minute O2 via nasal cannula [id number] @ [facility] ([place], [place]). Patient currently requires 6 liters/minute O2 via nasal cannula @ [facility] Tele bed #234-1 on 08/25/2024. In comparison, patient utilized 3 liters/minute O2 via nasal cannula @ [facility] Tele bed #234-1 on 08/24/2024. Why, one may ask, does this patient now require a higher level of oxygen support than in the previous 24 hours? Patient is NOT complaining of any coughing, wheezing, pleurisy, chest pain, fevers, chills, or diaphoresis on 08/25/2024. While patient is receiving heparin 5000 units SQ q12 for pharmacologic DVT prophylaxis, I cannot exclude the possibility of acute PE while patient receives heparin 5000 units SQ q12. Hence, I have ordered D-dimer (08/25/2024, 8:18pm). If D-dimer is elevated, I will order CTA chest with less concern for renal embarrassment as patient's creatinine level has remained normal throughout hospitalization with admission creatinine 1.04 mg/dL (08/21/2024, 9:47pm), repeat creatinine 0.78 mg/dL (08/22/2024, 6:39am), and last reported creatinine 0.59 mg/dL (08/24/2024, 7:22am). (4) CAD (coronary artery disease): Plan: Continue secondary prophylaxis against CAD (e.g., minimal non-obstructive CAD by left heart cath (2007)) utilizing patient's homescheduled clopidogrel 75mg PO qam. hold off, however patient's homescheduled rosuvastatin 20mg PO qhs given the potential for this medication to cause myopathy, if not acute rhabdomyolysis. (5) PAD (peripheral artery disease): Plan: Continue secondary prophylaxis against PAD (e.g., s/p bilateral carotid endarterectomy; s/p right common iliac artery stent and right external iliac artery angioplasty on 06/22/2014, Dr. Bayron Rodriguez, [facility]), utilizing patient's homescheduled clopidogrel 75mg PO qam. hold off, however patient's homescheduled rosuvastatin 20mg PO qhs given the potential for this medication to cause myopathy, if not acute rhabdomyolysis. (6) CVD (cerebrovascular disease): Plan: Continue secondary prophylaxis against CVD (e.g., acute non-hemorrhagic, ischemic CVA in this right-hand dominant patient) utilizing patient's homescheduled clopidogrel 75mg PO qam. hold off, however patient's homescheduled rosuvastatin 20mg PO qhs given the potential for this medication to cause myopathy, if not acute rhabdomyolysis. Plan Code status, DNR/DNI @ [facility] ([place]). Condition of patient remains fair. I anticipate that this patient will remain in [facility] for the next 2 midnights, in order to discern if patient suffers from acute atka valve endocarditis, or if patient suffers from daptomycin-mediated myopathy versus acute lumbar vertebral osteomyelitis, given patient's complaints of intractable lumbago on 08/25/2024, unrelieved by oxycodone IR 5mg PO q4 prn pain on 08/25/2024. Patient will then be discharged back to [facility] ([place]) for long-term care. Patient will also follow up with the Professor Of Practice @ [facility] ([place]) within 3-5 days of hospital discharge. Of final note, I spoke with the patient at the bedside in [facility] Telemetry bed #234-1, today, 08/25/2024, and the patient concurs with assessment and plan as described above. Admission and Anticipated Discharge Date Admission Date: August 21, 2024 Subjective "My lower back hurts. It's a 20 (out of 10 intensity scale) today. The oxycodones do nothing for me. Is there anything else I can take?" Review of Systems Review of Systems: Negative for antecedent or coincident fevers, chills, sweats, cough, wheeze, sore throat, hemoptysis, chest pains, palpitations, pleurisy, nausea, vomiting, diarrhea, abdominal pain, pelvic pain, flank pain, back pain, shoulder pain, hematemesis, hematochezia, melena, hematuria, dysuria, frequency, urgency, headaches, dizziness, lightheadedness, visual changes, hearing changes, falls, sick contacts, trauma, travel history, or food/drug ingestions novel or new. All other review systems are reported as negative by the patient on 08/25/2024. Physical Exam Physical Exam: General: comfortable, coherent, cooperative. Wide awake and alert. Not confused, lethargic, or obtunded. Patient speaks in complete, fluent, and articulate sentences without pause, interruption, cough, or wheeze on 6 liters/minute O2 via nasal cannula on 08/25/2024. cf., 3 liters/minute O2 via nasal cannula on 08/24/2024. HEENT: NC/AT. EOMI. PERRL. No [place] spots, nystagmus, gaze paresis, anisocoria, miosis, chemosis, mydriasis, hyphema, scleral injection, conjunctivitis, or pterygium. No otorrhea or rhinorrhea. No pharyngeal discharge or erythema. Neck: Supple, no stridor, bruit, goiter, JVD, or HJR. Chest: Symmetric rise and fall with respirations. Lungs: CTA/P. No audible expiratory wheeze, egophony, pectoriloquy, increase in tactile fremitus, or flatness/dullness to percussion at the bases. Heart: RRR, S1 and S2 noted. No S3 or S4 summation gallop. Grade II/ early systolic murmur @ LLSB, without radiation to the carotids, axilla, or back, and which remains invariant in regards to the respiratory cycle. Abdomen: Soft, NT, ND, no organomegaly. Bowel sounds auscultated in all 4 quadrants. Extremities: No clubbing, cyanosis, or edema. 2+ pedal pulses bilaterally. Skin: No decubitus ulcer, exanthem, or enanthem. No Janeway lesions, no Osler nodes, no splinter hemorrhages. Neurology: Alert and oriented in regards to person, place, time, or situation. 5/5 motor strength in all 4 extremities, both proximally and distally. Urology: No ta catheter. No urethral discharge. Results & Data Results & Data Vital Signs (Past 12 Hours) Vital Signs Temp Pulse Pulse Resp BP Pulse Ox Pulse Ox 08/25/24 15:05 36.7 C 95 H 18 103/50 L 94 08/25/24 15:00 81 08/25/24 11:46 36.9 C 87 19 115/73 97 08/25/24 11:46 93 08/25/24 11:24 90 18 96 08/25/24 08:00 37.0 C 87 19 90/52 L 95 Pulse Ox Pulse Ox O2 Del Method O2 Flow Rate O2 Flow Rate O2 Flow Rate O2 Flow Rate 08/25/24 15:05 Nasal Cannula 6.0 08/25/24 15:00 08/25/24 11:46 Nasal Cannula 6.0 08/25/24 11:46 93 90 3 3 3 08/25/24 11:24 Oxymask 4 08/25/24 08:00 Nasal Cannula 2.5 Laboratory Results Urine culture (08/21/2024, 10:00pm): > 3 types of organisms present, suggesting urine sample contamination at this time of urine sample collection. Blood culture #1 (08/21/2024, 10:00pm): negative Blood culture #2 (08/21/2024, 11:04pm): MRSA Blood culture #3 (08/24/2024, 9:28am): no growth to date WBC 6.13, N66 L19 M13 E2 B1, Hb 9.7, MCV 88.0, MCHC 30.0, platelet 336 (08/22/2024, 9:33am). WBC 6.10, Hb 9.6, MCV 85.7, MCHC 30.8, platelet 345 (08/24/2024, 7:22am). CO2 30, BUN/elocution teacher 19/0.78 (08/22/2024, 9:33am). CO2 36, BUN/elocution teacher 10/0.59 (08/24/2024, 7:22am). Troponin #1 555.1 pg/mL (08/22/2024, 9:33am). Troponin #2 439.4 pg/mL (08/24/2024, 7:22am). Diagnostic Findings TTE (08/24/2024, 8:21am): 1. LV systolic function normal. 2. No large valvular vegetations, but small vegetations specifically on the MV could not be definitively excluded. 3. LA size normal. 4. No pericardial effusion. (as per CARDS Dr. Jadon Lebron). EKG #1 (08/21/2024, 9:56pm): sinus tach @ 109, HI 148, QTC 465, TWI in V2, V3; no acute ST elevations/depressions (by my review). EKG #2 (08/22/2024, 8:23am): NSR @ 86, HI 152, QTC 471, TWI in V2; no acute ST elevations/depressions (by my review). PG Care Time/CCT Total # of Minutes Spent Total Time Spent with Patient: Total time spent is greater than 50% in coordination of care (as documented) at patient's floor/unit and/or counseling patient: Coding Level of Care Code 14443 SUB INP/OBS CARE Diagnoses Sepsis A41.9 Myocardial infarction type 2 I21.A1 Chronic obstructive pulmonary disease, unspecified COPD type J44.9 COPD type: unspecified COPD CAD (coronary artery disease) I25.10 PAD (peripheral artery disease) I73.9 CVD (cerebrovascular disease) I67.9 (3) COPD (chronic obstructive pulmonary disease) COPD type: unspecified COPD Qualified Code(s): J44.9 - Chronic obstructive pulmonary disease, unspecified
[2024-08-25] MEDS: DAPTOmycin 400 MG in SYRINGE 0 ML IV SCH (19:46)
[2024-08-25 21:38] LABS: C Reactive Protein 0.81 mg/dl (0-0.5)
[2024-08-25 22:31] LABS: D Dimer 340 ug/L FEU (0-500)
[2024-08-26] MEDS: MoRPHine SULFATE 2 MG/ML CARP IV STA (04:41)
--- NOTE | 2024-08-26 08:36 | Anesthesiology Consultation ---
Date of Service August 26, 2024 Assessment & Plan Chart Review Chart Review: Acceptable Risk for Surgery and Patient NOT seen in Pre Admission Testing Consults Requested none ASA ASA4 Proposed Anesthesia Anesthesia Type: MAC History Height/Weight Height: 5 ft Weight: 48.5 kg Allergies Allergy/AdvReac Type Severity Reaction Status Date / Time metoclopramide Allergy Severe "lungs Verified 05/07/24 23:53 collapsed" cortisone Allergy Intermediate swelling Verified 05/07/24 23:53 salicylates Allergy Intermediate caused Verified 05/07/24 23:53 bleeding, can take EC aspirin Corticosteroids AdvReac Intermediate swelling Verified 05/07/24 23:53 (Glucocorticoids) Medications Home Medications Medication Instructions Recorded Confirmed Last Taken Saccharomyces boulardii 250 mg 250 mg PO BID 03/08/24 08/22/24 03/11/24 08:55 capsule (Florastor) acetaminophen 325 mg tablet 650 mg PO Q6H PRN Fever Or Pain 03/08/24 08/22/24 Unknown (Tylenol) albuterol sulfate 2.5 mg/3 mL 2.5 mg continuous nebulization Q2H 03/08/24 08/22/24 Unknown (0.083 %) solution for nebulization PRN COPD albuterol sulfate 90 mcg/actuation 2 puff inhalation Q12H PRN COPD 03/08/24 08/22/24 Unknown aerosol inhaler arformoterol 15 mcg/2 mL solution 2 ml inhalation BID COPD 03/08/24 08/22/24 03/11/24 07:12 for nebulization (Brovana) ascorbic acid (vitamin C) 1,000 mg 1 g PO QAM 03/08/24 08/22/24 Unknown tablet (Vitamin C) budesonide 0.5 mg/2 mL suspension 0.5 mg inhalation BID COPD 03/08/24 08/22/24 03/11/24 07:12 for nebulization buspirone 7.5 mg tablet 7.5 mg PO BID 03/08/24 08/22/24 03/11/24 09:36 clonazepam 0.5 mg tablet 0.5 mg PO AMHS ANXIETY 03/08/24 08/22/24 03/11/24 09:10 clopidogrel 75 mg tablet (Plavix) 75 mg PO QAM 03/08/24 08/22/24 03/11/24 08:53 cyanocobalamin (vitamin B-12) 500 500 mcg PO QAM 03/08/24 08/22/24 Unknown mcg tablet (Vitamin B-12) diclofenac sodium 1 % topical gel See Rx Instructions .Route .COMPLEX 03/08/24 08/22/24 03/11/24 13:05 escitalopram oxalate 5 mg tablet 5 mg PO QAM 03/08/24 08/22/24 03/11/24 08:55 famotidine 20 mg tablet 20 mg PO BID GERD 03/08/24 08/22/24 03/11/24 08:55 fluticasone propionate 50 2 spray intranasal QAM 03/08/24 08/22/24 03/11/24 08:55 mcg/actuation nasal spray,suspension gabapentin 300 mg capsule 300 mg PO TID 03/08/24 08/22/24 03/11/24 13:05 guaifenesin 600 mg tablet, 600 mg PO BID cough 03/08/24 08/22/24 03/11/24 08:55 extended release 12 hr (Mucinex) ipratropium 0.5 mg-albuterol 3 mg 3 ml inhalation QID COPD 03/08/24 08/22/24 03/11/24 11:04 (2.5 mg base)/3 mL nebulization soln loperamide 2 mg tablet (Imodium 2 mg PO Q2H PRN Diarrhea 03/08/24 08/22/24 03/10/24 A-D) loratadine 10 mg tablet 10 mg PO QAM 03/08/24 08/22/24 03/11/24 08:55 methenamine hippurate 1 gram tablet 1 g PO BID UTI Prevention 03/08/24 08/22/24 Unknown nystatin 100,000 unit/mL oral 5 ml PO QID Thrush 03/08/24 05/07/24 03/11/24 13:05 suspension ondansetron HCl 4 mg tablet 4 mg PO Q6H PRN Nausea 03/08/24 08/22/24 03/11/24 06:51 oxycodone 5 mg tablet 5 mg PO Q4H PRN Pain 5-10 03/08/24 08/22/24 03/09/24 oxymetazoline 0.05 % nasal mist 2 spray intranasal Q12H PRN 03/08/24 08/22/24 Unknown (Afrin (oxymetazoline)) Epistaxis pantoprazole 40 mg tablet,delayed 40 mg PO BID GERD 03/08/24 08/22/24 03/11/24 08:55 release phenazopyridine 200 mg tablet 200 mg PO Q8H PRN Bladder Spasms 03/08/24 08/22/24 Unknown (Pyridium) rosuvastatin 20 mg tablet 20 mg PO HS HLD 03/08/24 08/22/24 03/10/24 20:13 bisacodyl 10 mg rectal suppository 10 mg ID DAILY PRN Constipation 05/06/24 08/22/24 Unknown (Dulcolax (bisacodyl)) cholecalciferol (vitamin D3) 1,250 1,250 mcg PO WK 05/06/24 05/07/24 Unknown mcg (50,000 unit) capsule cholecalciferol (vitamin D3) 50 50 mcg PO DAILY 05/06/24 05/07/24 Unknown mcg (2,000 unit) tablet (Vitamin D3) fentanyl 25 mcg/hr transdermal 25 mcg transdermal Q72H Chronic 05/06/24 08/22/24 05/05/24 patch Pain magnesium hydroxide 400 mg/5 mL 30 ml PO DAILY PRN Constipation 05/06/24 08/22/24 Unknown oral suspension (Milk of Magnesia) methylprednisolone 4 mg tablets in See Rx Instructions .Route 05/06/24 05/07/24 Unknown a dose pack (Medrol (Tyree)) .COMPLEX #21 ea prednisone 10 mg tablet 10 mg PO DAILY 08/22/24 08/22/24 Unknown Active Medications Generic Name Dose Route Start Last Admin Trade Name Freq PRN Reason Stop Dose Admin Acetaminophen 650 mg 08/22/24 00:52 08/26/24 08:23 Acetaminophen 325 Mg Tab PO 09/21/24 00:51 650 mg Q4H PRN Administration Pain or Fever Albuterol 3 ml 08/22/24 07:00 08/25/24 19:58 Albut/Ipratrop 3mg/0.5mg Neb 3 Ml Vial INH 09/21/24 06:59 Not Given QIDR [facility] Protocol Budesonide 0.5 mg 08/22/24 07:00 08/26/24 07:10 Budesonide 0.5 Mg/2 Ml Vial (Pulmicort) INH 09/21/24 06:59 0.5 mg BIDR SMITHA Administration Clonazepam 0.75 mg 08/24/24 21:00 08/26/24 08:27 Clonazepam 0.5 Mg Tab PO 09/23/24 20:59 0.75 mg AMHS SMITHA Administration Clopidogrel Bisulfate 75 mg 08/22/24 09:00 08/26/24 08:27 Clopidogrel Bisulfate 75 Mg Tab PO 09/21/24 08:59 75 mg QAM SMITHA Administration Diclofenac Sodium 4 gm 08/22/24 09:00 08/26/24 08:29 Diclofenac Sod 1% Gel 100 Gm Tube EXT 09/21/24 08:59 4 gm DAILY SMITHA Administration Protocol Diclofenac Sodium 2 gm 08/22/24 09:00 08/26/24 08:30 Diclofenac Sod 1% Gel 100 Gm Tube EXT 09/21/24 08:59 2 gm DAILY SMITHA Administration Protocol Escitalopram Oxalate 5 mg 08/22/24 09:00 08/26/24 08:24 Escitalopram Oxalate 10 Mg Tab PO 09/21/24 08:59 5 mg QAM SMITHA Administration Famotidine 20 mg 08/22/24 09:00 08/26/24 08:26 Famotidine 20 Mg Tab PO 09/21/24 08:59 20 mg BID SMITHA Administration Fentanyl 1 patch 08/22/24 09:00 08/25/24 08:18 Fentanyl 25 Mcg/Hr Tdsy TD 09/05/24 08:59 1 patch Q72H SMITHA Administration Fluticasone Propionate 2 sprays 08/22/24 09:00 08/26/24 08:27 Fluticasone Propionate Na Spr 16 Gm Btl NA 09/21/24 08:59 2 sprays QAM SMITHA Administration Formoterol Fumarate 20 mcg 08/22/24 07:00 08/26/24 07:11 Formoterol 20 Mcg/2 Ml Vial INH 09/21/24 06:59 20 mcg BIDR SMITHA Administration Gabapentin 300 mg 08/22/24 09:00 08/26/24 08:24 Gabapentin 300 Mg Cap PO 09/21/24 08:59 300 mg TID SMITHA Administration Guaifenesin 600 mg 08/22/24 09:00 08/26/24 08:26 Guaifenesin 600 Mg Tabcr PO 09/21/24 08:59 600 mg BID SMITHA Administration Heparin Sodium (Porcine) 5,000 units 08/24/24 21:00 08/26/24 08:28 Heparin Sod 5,000 Unit/0.5 Ml Vial SQ 09/23/24 20:59 5,000 units Q12 SMITHA Administration Daptomycin 400 mg/ Syringe 8 mls @ 4 mls/min 08/25/24 21:00 08/25/24 19:46 IV 09/04/24 20:59 4 mls/min Q24H SMITHA Administration Protocol Loratadine 10 mg 08/22/24 09:00 08/26/24 08:24 Loratadine 10 Mg Tab PO 09/21/24 08:59 10 mg QAM SMITHA Administration Miscellaneous 1 each 08/22/24 08:59 08/25/24 08:04 Fentanyl Patch Remove & Waste N/A 09/21/24 08:58 1 each Q72H SMITHA Administration Miscellaneous 1 each 08/22/24 08:00 08/26/24 08:22 Check Fentanyl Patch Placement N/A 09/21/24 07:59 1 each QS SMITHA Administration Ondansetron HCl 4 mg 08/22/24 00:52 08/24/24 10:40 Ondansetron Inj 2 Mg/Ml 2 Ml Vial IV 09/21/24 00:51 4 mg Q6H PRN Administration Nausea Oxycodone HCl 5 mg 08/22/24 02:27 08/26/24 08:28 Oxycodone Hcl Ir 5 Mg Tab (Immediate Release) PO 09/05/24 02:26 5 mg Q4H PRN Administration Pain 5-10 Pantoprazole Sodium 40 mg 08/22/24 09:00 08/26/24 08:23 Pantoprazole 40 Mg Tab PO 09/21/24 08:59 40 mg BID SMITHA Administration Polyethylene Glycol 17 gm 08/22/24 16:11 08/26/24 08:28 Polyethylene (Miralax) 17 Gm Pack PO 09/21/24 16:10 17 gm DAILY PRN Administration Constipation Prednisone 10 mg 08/22/24 09:00 08/26/24 08:27 Prednisone 10 Mg Tablet PO 09/21/24 08:59 10 mg DAILY SMITHA Administration Past Medical History Medical History Acute dyspnea Acute exacerbation of chronic obstructive pulmonary disease Acute hypoxemic respiratory failure Opiate overdose Acute CVA (cerebrovascular accident) TIA (transient ischemic attack) residential resident resident of [facility] History of GI bleed History of anemia History of esophageal dilatation Diarrhea Difficulty swallowing PVD (peripheral vascular disease) Osteoporosis Arthritis Anxiety SOB (shortness of breath) on exertion Chronic obstructive pulmonary disease OXYGEN 3-4 L/MIN CONTINUOUSLY CAD (coronary artery disease) F/U DR Angélica LEONARDO Hyperlipidemia Hypertension Exercise / Class Metabolic Activity III < 4 Walking/Shop/Light housework Past Family History Family History Other No family history of adverse response to anesthesia Past Surgical History Surgical History Hx of esophagogastroduodenoscopy "EGD 12/04/11 Dr. Woods- large hiatal hernia. stomach and small intestine were normal. esophagus dilated, small tear in the UES" History of left heart catheterization H/O colonoscopy "Colonoscopy 09/06/13 Dr. Woods- sigmoid diverticulosis, internal hemorrhoids, no polyps" On 12/02/14 16:04 Jaye Parris wrote "2012-adenomatous polyp" Status post insertion of iliac artery stent "Right common iliac artery stent and right external iliac artery angioplasty on 06/22/14, Dr. Rodriguez, [facility] [place]" History of hemorrhoidectomy History of knee surgery S/p bilateral carotid endarterectomy H/O vascular surgery RIGHT ILIAC ARTERY STENT PLACEMENT H/O knee surgery History of appendectomy History of esophagogastroduodenoscopy (EGD) History of colonoscopy History of cataract surgery R/L H/O hemorrhoidectomy H/O carotid endarterectomy R/L History of cardiac cath NO STENTS Past Anesthesia History No Hx of Anesthesia Complications and No Family Hx of Anesthesia Complications History of PONV No Hx of PONV and No Hx of Motion Sickness Social History Smoking Status: Former smoker tobacco type: cigarettes and e-cigarettes Smoking cigarettes per day: 5-10 CIG a day ADVISED Do You Dip or Chew Tobacco: No Hx Alcohol Use: No Alcohol type: beer alcohol intake frequency: a few times a week Hx Substance Use: No substance use type: does not use Physical Exam Vital Signs Last Vital Signs Temp 36.6 C 08/26/24 08:07 Pulse 92 H 08/26/24 08:07 Resp 18 08/26/24 08:07 BP 127/65 08/26/24 08:07 Pulse Ox 93 08/26/24 08:07 O2 Del Method Nasal Cannula 08/26/24 08:07 O2 Flow Rate 3 08/26/24 08:07 Testing Laboratory Results 08/24/24 07:22 08/24/24 07:22 PT 11.2 Seconds (9.0-12.0) 08/22/24 09:33 INR 1.0 (0.9-1.1) 08/22/24 09:33 APTT 25 Seconds (21-31) 08/22/24 09:33 Urine Color Yellow 08/21/24 22:00 Urine Appearance Cloudy (Clear) A 08/21/24 22:00 Urine pH 6.0 (4.5-7.5) 08/21/24 22:00 Ur Specific [place] 1.020 (1.000-1.030) 08/21/24 22:00 Urine Protein 1+ (Negative) H 08/21/24 22:00 Urine Glucose (UA) Negative (Negative) 08/21/24 22:00 Urine Ketones Negative (Negative) 08/21/24 22:00 Urine Nitrite Negative (Negative) 08/21/24 22:00 Ur Leukocyte Esterase 1+ (Negative) H 08/21/24 22:00 Urine RBC 6-10 /hpf (0-2) H 08/21/24 22:00 Urine WBC 6-10 /hpf (0-5) H 08/21/24 22:00 Ur Epithelial Cells >20 /hpf (0-2) H 08/21/24 22:00 08/21/24 23:04 Aerobic Blood Culture - Preliminary Blood Staph aureus MRSA Anaerobic Blood Culture - Preliminary Staph aureus MRSA Peptoiphilus harei group 08/24/24 09:28 Aerobic Blood Culture - Preliminary Blood No growth in Aerobic bottle after 24 hours. Anaerobic Blood Culture - Preliminary No growth in Anaerobic bottle after 24 hours. 08/21/24 22:20 Aerobic Blood Culture - Preliminary Blood No growth in Aerobic bottle after 48 hours. Anaerobic Blood Culture - Preliminary No growth in Anaerobic bottle after 48 hours. 08/21/24 22:00 Urine Culture - Final Urine,Clean Catch Three types of organisms present, all high counts probable skin luli. No further identifications or sensitivities to follow. Electrocardiogram Date: 08/22/24 Findings: + NSR @ (@ 85 w/ PAC's) Chest X-Ray Date: 08/21/24 Findings: + NAD and + atherosclerosis of thoracic aorta Echocardiogram Date: 08/24/24 LV Function: normal RWMA: + none Valvular Disease: + no significant valvular disease
--- NOTE | 2024-08-26 15:49 | Hospitalist Progress Note ---
Date of Service August 26, 2024 Assessment & Plan (1) Sepsis: Plan: 79 years old female with history of DNR/DNI @ [facility] ([place], [place]), hyperlipidemia, HTN, vancomycin-resistant Enterococcus faecium-associated UTI (as noted on 05/12/2024 urine culture), and former tobacco abuse with subsequent development of chronic hypoxic respiratory failure due to end-stage COPD on 3 liters/minute O2 via nasal cannula [id number] @ [facility] ([place], [place]), who was admitted to the inpatient hospitalist service @ [facility] on 08/21/2024 with the following diagnoses: 1. Sepsis of unclear etiology with coincident MRSA bacteremia, R/O acute kotzebue valve endocarditis. 2. Acute toxic metabolic encephalopathy of unclear etiology with coincident MRSA bacteremia, R/O daptomycin-mediated myopathy versus acute lumbar vertebral osteomyelitis, given patient's complaints of intractable lumbago on 08/25/2024, unrelieved by oxycodone IR 5mg PO q4 prn pain on 08/25/2024. To address #1, patient was started on cefepime 2g IV x1 dose (08/21/2024, 9:58pm) and daptomycin 300mg IV daily (08/21/2024, 9:56pm), followed by daptomycin 400mg IV daily (08/25/2024, 9:00pm). Await RICHARDSON with Anesthesiology Service evaluation (given patient's chronic hypoxic respiratory failure due to end-stage COPD on 3 liters/minute O2 via nasal cannula [id number]), both in the 08/26/2024 am. To address #2, patient underwent CK level testing (normal at 103 U/L on 08/25/2024, 8:14pm) to address patient's complaints of intractable lumbago on 08/25/2024, and recognizing that a common side effect of daptomycin is myopathy/neuropathy. In addition, patient underwent ESR/CRP level testing (normal at 19 mm/hr and nominally elevated at 0.81 mg/dL, respectively, on 08/25/2024, 8:14pm) to address patient's complaints of intractable lumbago on 08/25/2024, and recognizing that there may be an infectious etiology for patient's intractable lumbago. cf., ESR levels are frequently in excess of 100 mm/hr in cases of acute vertebral osteomyelitis. Hence, my suspicion for daptomycin-mediated myopathy/neuropathy and vertebral osteomyelitis remains low. (2) Myocardial infarction type 2: Plan: Etiology of troponin elevations is most likely due to demand ischemia, which in turn, is due to (a) sepsis of unclear etiology, and/or (b) chronic hypoxic respiratory failure due to end-stage COPD on 3 liters/minute O2 via nasal cannula [id number] @ [facility] ([place]). cf., Troponin #1 555.1 pg/mL (08/22/2024, 9:33am). cf., Troponin #2 439.4 pg/mL (08/24/2024, 7:22am). cf., EKG #1 (08/21/2024, 9:56pm): sinus tach @ 109, NV 148, QTC 465, TWI in V2, V3; no acute ST elevations/depressions (by my review). cf., EKG #2 (08/22/2024, 8:23am): NSR @ 86, NV 152, QTC 471, TWI in V2; no acute ST elevations/depressions (by my review). cf., TTE (08/24/2024, 8:21am): 1. LV systolic function normal. 2. No large valvular vegetations, but small vegetations specifically on the MV could not be definitively excluded. 3. LA size normal. 4. No pericardial effusion. (as per CARDS Dr. Jadon Lebron). The absence of LV wall motion abnormalities on TTE (08/24/2024, 8:21am) makes acute NSTEMI unlikely in this patient. Hence, this patient does not receive heparin infusion or lovenox 1mg/kg SQ q12. Hence, I have opted to observe this laboratory anomaly of elevated troponins while patient remains in [facility]. (3) COPD (chronic obstructive pulmonary disease): Plan: Patient suffers from chronic hypoxic respiratory failure due to end-stage COPD on 3 liters/minute O2 via nasal cannula [id number] @ [facility] ([place], [place]). Patient currently requires 6 liters/minute O2 via nasal cannula @ [facility] Tele bed #234-1 on 08/25/2024. In comparison, patient utilized 3 liters/minute O2 via nasal cannula @ [facility] Tele bed #234-1 on 08/24/2024. Why, one may ask, did this patient require a higher level of oxygen support on 08/25/2024, than in the previous 24 hours? Patient is NOT complaining of any coughing, wheezing, pleurisy, chest pain, fevers, chills, or diaphoresis on 08/25/2024. While patient is receiving heparin 5000 units SQ q12 for pharmacologic DVT prophylaxis, I could not exclude the possibility of acute PE while patient receives heparin 5000 units SQ q12. Hence, I ordered D-dimer (normal at 340 ug/L on 08/25/2024, 9:35pm), and so, my clinical index of suspicion for acute PE remains low. Subsequently, patient was titrated back down to her home-scheduled 3 liters/minute O2 via nasal cannula on 08/26/2024, 11:11am. (4) CAD (coronary artery disease): Plan: Continue secondary prophylaxis against CAD (e.g., minimal non-obstructive CAD by left heart cath (2007)) utilizing patient's homescheduled clopidogrel 75mg PO qam. hold off, however patient's homescheduled rosuvastatin 20mg PO qhs given the potential for this medication to cause myopathy, if not acute rhabdomyolysis. (5) PAD (peripheral artery disease): Plan: Continue secondary prophylaxis against PAD (e.g., s/p bilateral carotid endarterectomy; s/p right common iliac artery stent and right external iliac a rtery angioplasty on 06/22/2014, Dr. Bayron Rodriguez, [facility] [place]), utilizing patient's homescheduled clopidogrel 75mg PO qam. hold off, however patient's homescheduled rosuvastatin 20mg PO qhs given the potential for this medication to cause myopathy, if not acute rhabdomyolysis. (6) CVD (cerebrovascular disease): Plan: Continue secondary prophylaxis against CVD (e.g., acute non-hemorrhagic, ischemic CVA in this right-hand dominant patient) utilizing patient's homescheduled clopidogrel 75mg PO qam. hold off, however patient's home scheduled rosuvastatin 20mg PO qhs given the potential for this medication to cause myopathy, if not acute rhabdomyolysis. Plan Code status, DNR/DNI @ [facility] ([place]). Condition of patient remains fair. I anticipate that this patient will remain in [facility] for the next 2 midnights, in order to discern if patient suffers from acute kotzebue valve endocarditis, or if patient suffers from daptomycin-mediated myopathy versus acute lumbar vertebral osteomyelitis, given patient's complaints of intractable lumbago on 08/25/2024, unrelieved by oxycodone IR 5mg PO q4 prn pain on 08/25/2024. Patient will then be discharged back to [facility] for long-term care. Patient will also follow up with the Color Artist @ [facility] ([place]) within 3-5 days of hospital discharge. Of final note, I spoke with the patient at the bedside in [facility] Telemetry bed #234-1, today, 08/26/2024, and the patient concurs with assessment and plan as described above. Admission and Anticipated Discharge Date Admission Date: August 21, 2024 Subjective "My lower back feels fine today. No pain. I feel better than yesterday." Review of Systems Review of Systems: Negative for antecedent or coincident fevers, chills, sweats, cough, wheeze, sore throat, hemoptysis, chest pains, palpitations, pleurisy, nausea, vomiting, diarrhea, abdominal pain, pelvic pain, flank pain, back pain, shoulder pain, hematemesis, hematochezia, melena, hematuria, dysuria, frequency, urgency, headaches, dizziness, lightheadedness, visual changes, hearing changes, falls, sick contacts, trauma, travel history, or food/drug ingestions novel or new. All other review systems are reported as negative by the patient on 08/26/2024. Physical Exam Physical Exam: General: comfortable, coherent, cooperative. Wide awake and alert. Not confused, lethargic, or obtunded. Patient speaks in complete, fluent, and articulate sentences without pause, interruption, cough, or wheeze on 6 liters/minute O2 via nasal cannula on 08/25/2024. cf., 3 liters/minute O2 via nasal cannula on 08/24/2024. HEENT: NC/AT. EOMI. PERRL. No [place] spots, nystagmus, gaze paresis, anisocoria, miosis, chemosis, mydriasis, hyphema, scleral injection, conjunctivitis, or pterygium. No otorrhea or rhinorrhea. No pharyngeal discharge or erythema. Neck: Supple, no stridor, bruit, goiter, JVD, or HJR. Chest: Symmetric rise and fall with respirations. Lungs: CTA/P. No audible expiratory wheeze, egophony, pectoriloquy, increase in tactile fremitus, or flatness/dullness to percussion at the bases. Heart: RRR, S1 and S2 noted. No S3 or S4 summation gallop. Grade II/ early systolic murmur @ LLSB, without radiation to the carotids, axilla, or back, and which remains invariant in regards to the respiratory cycle. Abdomen: Soft, NT, ND, no organomegaly. Bowel sounds auscultated in all 4 quadrants. Extremities: No clubbing, cyanosis, or edema. 2+ pedal pulses bilaterally. Skin: No decubitus ulcer, exanthem, or enanthem. No Jan[place]ay lesions, no Osler nodes, no splinter hemorrhages. Neurology: Alert and oriented in regards to person, place, time, or situation. 5/5 motor strength in all 4 extremities, both proximally and distally. Urology: No ta catheter. No urethral discharge. Results & Data Results & Data Vital Signs (Past 12 Hours) Vital Signs Temp Pulse Pulse Resp BP BP Pulse Ox 08/26/24 15:17 37.0 C 91 H 16 105/56 L 94 08/26/24 13:55 75 18 95 08/26/24 11:11 37.1 C 88 18 96/48 L 93 08/26/24 10:13 80 20 96 08/26/24 08:07 36.6 C 92 H 18 127/65 93 08/26/24 08:00 08/26/24 07:11 77 24 99 08/26/24 05:40 73 O2 Del Method O2 Flow Rate 08/26/24 15:17 Nasal Cannula 3 08/26/24 13:55 Nasal Cannula 3 08/26/24 11:11 Nasal Cannula 3 08/26/24 10:13 Nasal Cannula 4 08/26/24 08:07 Nasal Cannula 3 08/26/24 08:00 Nasal Cannula 4 08/26/24 07:11 Nasal Cannula 4 08/26/24 05:40 Laboratory Results Urine culture (08/21/2024, 10:00pm): > 3 types of organisms present, suggesting urine sample contamination at this time of urine sample collection. Blood culture #1 (08/21/2024, 10:00pm): negative Blood culture #2 (08/21/2024, 11:04pm): MRSA Blood culture #3 (08/24/2024, 9:28am): no growth to date WBC 6.13, N66 L19 M13 E2 B1, Hb 9.7, MCV 88.0, MCHC 30.0, platelet 336 (08/22/2024, 9:33am). WBC 6.10, Hb 9.6, MCV 85.7, MCHC 30.8, platelet 345 (08/24/2024, 7:22am). Lactate 0.8 mmol/L (08/25/2024, 8:14pm). Procalcitonin 0.52 ng/mL (08/25/2024, 8:14pm). ESR 19 mm/hr (08/25/2024, 8:14pm). CRP 0.81 mg/dL (08/25/2024, 8:14pm). CK 103 (08/25/2024, 8:14pm). CO2 30, BUN/water purifier 19/0.78 (08/22/2024, 9:33am). CO2 36, BUN/water purifier 10/0.59 (08/24/2024, 7:22am). Troponin #1 555.1 pg/mL (08/22/2024, 9:33am). Troponin #2 439.4 pg/mL (08/24/2024, 7:22am). Diagnostic Findings TTE (08/24/2024, 8:21am): 1. LV systolic function normal. 2. No large valvular vegetations, but small vegetations specifically on the MV could not be definitively excluded. 3. LA size normal. 4. No pericardial effusion. (as per CARDS Dr. Jadon Lebron). EKG #1 (08/21/2024, 9:56pm): sinus tach @ 109, NV 148, QTC 465, TWI in V2, V3; no acute ST elevations/depressions (by my review). EKG #2 (08/22/2024, 8:23am): NSR @ 86, NV 152, QTC 471, TWI in V2; no acute ST elevations/depressions (by my review). PG Care Time/CCT Total # of Minutes Spent Total Time Spent with Patient: Total time spent is greater than 50% in coordination of care (as documented) at patient's floor/unit and/or counseling patient: Coding Level of Care Code 35326 SUB INP/OBS CARE 2/35MIN Diagnoses Sepsis A41.9 Myocardial infarction type 2 I21.A1 Chronic obstructive pulmonary disease, unspecified COPD type J44.9 COPD type: unspecified COPD CAD (coronary artery disease) I25.10 PAD (peripheral artery disease) I73.9 CVD (cerebrovascular disease) I67.9 (3) COPD (chronic obstructive pulmonary disease) COPD type: unspecified COPD Qualified Code(s): J44.9 - Chronic obstructive pulmonary disease, unspecified
--- NOTE | 2024-08-26 15:52 | Cardiology Consultation ---
Date of Consultation August 26, 2024 Assessment & Plan (1) Staphylococcus aureus bacteremia: (2) AMS (altered mental status): (3) CAD (coronary artery disease): (4) Acute exacerbation of chronic obstructive pulmonary disease (COPD): Plan I am going to repeat a limited transthoracic echo at bedside while I am present to view the images. I really do not want to do a RICHARDSON on this lady given she is very old frail with significant oxygen requiring COPD. In addition even if she has endocarditis she would not be a surgical candidate. Given staph bacteremia she is going to require at least 1 month of IV antibiotics regardless. Her repeat blood cultures from the are still pending. the possibility of questionable lumbar osteomyelitis due to her back pain was also raised by the hospitalist service. In her records it is listed that she sees Dr. Leonardo I need to check with their service to see if they in fact do follow this patient. She was unable to provide history. I will follow-up tomorrow when we can repeat her echo. History of Present Illness Reason for Consultation: Evaluate for bacteremia possible mitral valve endocarditis Attending Physician: Lokesh Stevens MD, PhD History of Present Illness Ana is an 81-year-old woman who lives in a half-way and has significant and severe COPD and is oxygen dependent. We were asked to evaluate her for possible endocarditis due to positive blood cultures. Her history was mostly obtained from the chart and is as follows:79 years old female with history of DNR/DNI @ [facility] ([place], [place]), hyperlipidemia, HTN, vancomycin-resistant Enterococcus faecium-associated UTI (as noted on 05/12/2024 urine culture), and former tobacco abuse with subsequent development of chronic hypoxic respiratory failure due to end-stage COPD on 3 l iters/minute O2 via nasal cannula [id number] @ [facility] ([place]), who was admitted to the inpatient hospitalist service @ [facility] on 08/21/2024 with the following diagnoses: 1. Sepsis of unclear etiology with coincident MRSA bacteremia, R/O acute deering valve endocarditis. 2. Acute toxic metabolic encephalopathy of unclear etiology with coincident MRSA bacteremia, R/O daptomycin-mediated myopathy versus acute lumbar vertebral osteomyelitis, given patient's complaints of intractable lumbago on 08/25/2024, unrelieved by oxycodone IR 5mg PO q4 prn pain on 08/25/2024. She has had multiple echoes over the years and all of them are extremely technically difficult and limited. The echo done during this hospitalization we are unable to adequately visualize her mitral valve. Allergies Allergy/AdvReac Type Severity Reaction Status Date / Time metoclopramide Allergy Severe "lungs Verified 05/07/24 23:53 collapsed" cortisone Allergy Intermediate swelling Verified 05/07/24 23:53 salicylates Allergy Intermediate caused Verified 05/07/24 23:53 bleeding, can take EC aspirin Corticosteroids AdvReac Intermediate swelling Verified 05/07/24 23:53 (Glucocorticoids) Home Medications Medication Instructions Recorded Confirmed Type Saccharomyces boulardii 250 mg 250 mg PO BID 03/08/24 08/22/24 History capsule (Florastor) acetaminophen 325 mg tablet 650 mg PO Q6H PRN Fever Or Pain 03/08/24 08/22/24 History (Tylenol) albuterol sulfate 2.5 mg/3 mL 2.5 mg continuous nebulization Q2H 03/08/24 08/22/24 History (0.083 %) solution for nebulization PRN COPD albuterol sulfate 90 mcg/actuation 2 puff inhalation Q12H PRN COPD 03/08/24 08/22/24 History aerosol inhaler arformoterol 15 mcg/2 mL solution 2 ml inhalation BID COPD 03/08/24 08/22/24 History for nebulization (Brovana) ascorbic acid (vitamin C) 1,000 mg 1 g PO QAM 03/08/24 08/22/24 History tablet (Vitamin C) budesonide 0.5 mg/2 mL suspension 0.5 mg inhalation BID COPD 03/08/24 08/22/24 History for nebulization buspirone 7.5 mg tablet 7.5 mg PO BID 03/08/24 08/22/24 History clonazepam 0.5 mg tablet 0.5 mg PO AMHS ANXIETY 03/08/24 08/22/24 History clopidogrel 75 mg tablet (Plavix) 75 mg PO QAM 03/08/24 08/22/24 History cyanocobalamin (vitamin B-12) 500 500 mcg PO QAM 03/08/24 08/22/24 History mcg tablet (Vitamin B-12) diclofenac sodium 1 % topical gel See Rx Instructions .Route .COMPLEX 03/08/24 08/22/24 History escitalopram oxalate 5 mg tablet 5 mg PO QAM 03/08/24 08/22/24 History famotidine 20 mg tablet 20 mg PO BID GERD 03/08/24 08/22/24 History fluticasone propionate 50 2 spray intranasal QAM 03/08/24 08/22/24 History mcg/actuation nasal spray,suspension gabapentin 300 mg capsule 300 mg PO TID 03/08/24 08/22/24 History guaifenesin 600 mg tablet, 600 mg PO BID cough 03/08/24 08/22/24 History extended release 12 hr (Mucinex) ipratropium 0.5 mg-albuterol 3 mg 3 ml inhalation QID COPD 03/08/24 08/22/24 History (2.5 mg base)/3 mL nebulization soln loperamide 2 mg tablet (Imodium 2 mg PO Q2H PRN Diarrhea 03/08/24 08/22/24 History A-D) loratadine 10 mg tablet 10 mg PO QAM 03/08/24 08/22/24 History methenamine hippurate 1 gram tablet 1 g PO BID UTI Prevention 03/08/24 08/22/24 History nystatin 100,000 unit/mL oral 5 ml PO QID Thrush 03/08/24 05/07/24 History suspension ondansetron HCl 4 mg tablet 4 mg PO Q6H PRN Nausea 03/08/24 08/22/24 History oxycodone 5 mg tablet 5 mg PO Q4H PRN Pain 5-10 03/08/24 08/22/24 History oxymetazoline 0.05 % nasal mist 2 spray intranasal Q12H PRN 03/08/24 08/22/24 History (Afrin (oxymetazoline)) Epistaxis pantoprazole 40 mg tablet,delayed 40 mg PO BID GERD 03/08/24 08/22/24 History release phenazopyridine 200 mg tablet 200 mg PO Q8H PRN Bladder Spasms 03/08/24 08/22/24 History (Pyridium) rosuvastatin 20 mg tablet 20 mg PO HS HLD 03/08/24 08/22/24 History bisacodyl 10 mg rectal suppository 10 mg LA DAILY PRN Constipation 05/06/24 08/22/24 History (Dulcolax (bisacodyl)) cholecalciferol (vitamin D3) 1,250 1,250 mcg PO WK 05/06/24 05/07/24 History mcg (50,000 unit) capsule cholecalciferol (vitamin D3) 50 50 mcg PO DAILY 05/06/24 05/07/24 History mcg (2,000 unit) tablet (Vitamin D3) fentanyl 25 mcg/hr transdermal 25 mcg transdermal Q72H Chronic 05/06/24 08/22/24 History patch Pain magnesium hydroxide 400 mg/5 mL 30 ml PO DAILY PRN Constipation 05/06/24 08/22/24 History oral suspension (Milk of Magnesia) methylprednisolone 4 mg tablets in See Rx Instructions .Route 05/06/24 05/07/24 Rx a dose pack (Medrol (Tyree)) .COMPLEX #21 ea prednisone 10 mg tablet 10 mg PO DAILY 08/22/24 08/22/24 History Patient History Medical History Acute dyspnea Acute exacerbation of chronic obstructive pulmonary disease Acute hypoxemic respiratory failure Opiate overdose Acute CVA (cerebrovascular accident) TIA (transient ischemic attack) [facility] resident resident of [facility] History of GI bleed History of anemia History of esophageal dilatation Diarrhea Difficulty swallowing PVD (peripheral vascular disease) Osteoporosis Arthritis Anxiety SOB (shortness of breath) on exertion Chronic obstructive pulmonary disease OXYGEN 3-4 L/MIN CONTINUOUSLY CAD (coronary artery disease) F/U DR Angélica LEONARDO Hyperlipidemia Hypertension Surgical History Hx of esophagogastroduodenoscopy "EGD 12/04/11 Dr. Woods- large hiatal hernia. stomach and small intestine were normal. esophagus dilated, small tear in the UES" History of left heart catheterization H/O colonoscopy "Colonoscopy 09/06/13 Dr. Woods- sigmoid diverticulosis, internal hemorrhoids, no polyps" On 12/02/14 16:04 Jaye Nye wrote "2012-adenomatous polyp" Status post insertion of iliac artery stent "Right common iliac artery stent and right external iliac artery angioplasty on 06/22/14, Dr. Rodriguez, [facility] [place] History of hemorrhoidectomy History of knee surgery S/p bilateral carotid endarterectomy H/O vascular surgery RIGHT ILIAC ARTERY STENT PLACEMENT H/O knee surgery History of appendectomy History of esophagogastroduodenoscopy (EGD) History of colonoscopy History of cataract surgery R/L H/O hemorrhoidectomy H/O carotid endarterectomy R/L History of cardiac cath NO STENTS Family History Other No family history of adverse response to anesthesia Social History Smoking Status: Former smoker Age Started Using Tobacco: 19; packs per day: 2; Cigarettes Per Day: 5-10 CIG a day ADVISED; Do You Dip or Chew Tobacco: No; Hx Alcohol Use: No Hx Substance Use: No Preferred Language: Arabic Communication Ability: Effective Communication Ability Comment: confused Senior Web Analyst Required: No Beliefs That Will Affect Care: None marital status: / Current Living Situation: Long Term Current Living Situation Comment: [facility] How many Children do You have: 1 Feels Safe at Home: Yes Assistive Devices: Wheelchair Review of Systems Review of Systems: Unobtainable due to cognitive status Patient was unable to provide her own history. When I ask her where she lives she said at home and I asked her who she lives with she could not answer the question Physical Exam Physical Exam: Elderly thin debilitated appearing chronically ill Respiratory: Sebas decreased breath sounds bilaterally Cardiovascular: Heart is regular murmurs were not appreciated There are no signs of embolic endocarditis Results & Data Vital Signs (Past 12 Hours) Vital Signs Temp Pulse Pulse Resp BP BP Pulse Ox 08/26/24 15:17 37.0 C 91 H 16 105/56 L 94 08/26/24 13:55 75 18 95 08/26/24 11:11 37.1 C 88 18 96/48 L 93 08/26/24 10:13 80 20 96 08/26/24 08:07 36.6 C 92 H 18 127/65 93 08/26/24 08:00 08/26/24 07:11 77 24 99 08/26/24 05:40 73 O2 Del Method O2 Flow Rate 08/26/24 15:17 Nasal Cannula 3 08/26/24 13:55 Nasal Cannula 3 08/26/24 11:11 Nasal Cannula 3 08/26/24 10:13 Nasal Cannula 4 08/26/24 08:07 Nasal Cannula 3 08/26/24 08:00 Nasal Cannula 4 08/26/24 07:11 Nasal Cannula 4 08/26/24 05:40 Laboratory Results Abnormal lab results 08/25/24 08/25/24 Range/Units 20:11 20:14 POC Glucose 128 H (70-99) mg/dl C-Reactive Protein 0.81 H (0-0.5) mg/dl Procalcitonin 0.52 H (0-0.5) ng/ml ECG Additional Comments: Normal sinus rhythm with sinus arrhythmia
[2024-08-27] MEDS: MoRPHine SULFATE 2 MG/ML CARP IV STA (01:21)
[2024-08-27 06:39] LABS: Creatinine Clr Calc Pharmacy 53.7 ml/min
[2024-08-27] MEDS: fentaNYL 25 MCG/HR TDSY TD SCH (12:06)
--- NOTE | 2024-08-27 12:51 | Cardiology Progress Note ---
Date of Service August 27, 2024 Assessment & Plan (1) Staphylococcus aureus bacteremia: (2) AMS (altered mental status): (3) CAD (coronary artery disease): (4) Acute exacerbation of chronic obstructive pulmonary disease (COPD): Plan Recommend conservative medical therapy with IV antibiotics. I would prefer not to do RICHARDSON on this lady given she is very old frail with significant oxygen requiring COPD. In addition even if she has endocarditis she would not be a surgical candidate. Given staph bacteremia she is going to require at least 1 month of IV antibiotics regardless. Her repeat blood cultures from the are still pending. the possibility of questionable lumbar osteomyelitis due to her back pain was also raised by the hospitalist service. Admission and Anticipated Discharge Date Admission Date: August 21, 2024 Subjective Patient was significantly confused today when I saw her. I was at the bedside when we did her echo with attention to her mitral valve. Her anterior mitral valve leaflet appears to be calcified but there is no evidence for endocarditis. As stated yesterday, I really do not want to do a RICHARDSON on this lady given she is very old frail with significant oxygen requiring COPD, as well as significant dementia in addition even if she has endocarditis she would not be a surgical candidate. Given staph bacteremia she is going to require at least 1 month of IV antibiotics regardless. With MRSA bacteremia she likely needs long-term IV antibiotics regardless. Please note she was previously seen by Dr. Mcdonald in the office but not since 2019 and also by [facility]. Her vascular surgery was Dr. Rodriguez at [facility] with both CEA and iliac procedures. She underwent LHC in 2007 showing no significant CAD. Review of Systems Review of Systems: Unobtainable due to cognitive status Physical Exam Physical Exam: unchanged Results & Data Vital Signs (Past 12 Hours) Vital Signs Temp Pulse Pulse Resp BP Pulse Ox O2 Del Method 08/27/24 10:37 37.0 C 87 16 110/60 97 Nasal Cannula 08/27/24 09:00 Nasal Cannula 08/27/24 07:42 37.1 C 87 18 136/64 100 Nebulizer 08/27/24 07:02 94 H 20 92 Nasal Cannula 08/27/24 05:45 92 H 08/27/24 03:14 36.5 C 90 18 156/83 H 99 Nasal Cannula O2 Flow Rate 08/27/24 10:37 3 08/27/24 09:00 4 08/27/24 07:42 08/27/24 07:02 3 08/27/24 05:45 08/27/24 03:14 3 Medications Administered Current Inpatient Medications Acetaminophen (Acetaminophen 325 Mg Tab) 650 mg PO Q4H PRN PRN Reason: Pain or Fever Stop: 09/21/24 00:51 Last Admin: 08/27/24 09:19 Dose: 650 mg Albuterol (Albuterol 0.083% Nebu Soln 3 Ml Vial) 2.5 mg INH Q2H PRN; Protocol PRN Reason: SOB/wheezing Stop: 09/21/24 02:26 Albuterol (Albut/Ipratrop 3mg/0.5mg Neb 3 Ml Vial) 3 ml INH QIDR SMITHA; Protocol Stop: 09/21/24 06:59 Last Admin: 08/27/24 11:47 Dose: Not Given Bisacodyl (Bisacodyl 10 Mg Supp) 10 mg [place] DAILY PRN PRN Reason: Constipation Stop: 09/21/24 02:26 Budesonide (Budesonide 0.5 Mg/2 Ml Vial (Pulmicort)) 0.5 mg INH BIDR SMITHA Stop: 09/21/24 06:59 Last Admin: 08/27/24 07:02 Dose: 0.5 mg Clonazepam (Clonazepam 0.5 Mg Tab) 0.75 mg PO AMHS [facility] Stop: 09/23/24 20:59 Last Admin: 08/27/24 09:19 Dose: 0.75 mg Clopidogrel Bisulfate (Clopidogrel Bisulfate 75 Mg Tab) 75 mg PO QAM [facility] Stop: 09/21/24 08:59 Last Admin: 08/27/24 09:18 Dose: 75 mg Diclofenac Sodium (Diclofenac Sod 1% Gel 100 Gm Tube) 4 gm EXT DAILY SMITHA; Protocol Stop: 09/21/24 08:59 Last Admin: 08/27/24 09:16 Dose: 4 gm Diclofenac Sodium (Diclofenac Sod 1% Gel 100 Gm Tube) 2 gm EXT DAILY SMITHA; Protocol Stop: 09/21/24 08:59 Last Admin: 08/27/24 09:17 Dose: 2 gm Diclofenac Sodium (Diclofenac Sod 1% Gel 100 Gm Tube) 2 gm EXT DAILY PRN; Protocol PRN Reason: Pain Stop: 09/26/24 13:59 Escitalopram Oxalate (Escitalopram Oxalate 10 Mg Tab) 5 mg PO QAM [facility] Stop: 09/21/24 08:59 Last Admin: 08/27/24 09:18 Dose: 5 mg Famotidine (Famotidine 20 Mg Tab) 20 mg PO BID [facility] Stop: 09/21/24 08:59 Last Admin: 08/27/24 09:18 Dose: 20 mg Fentanyl (Fentanyl 25 Mcg/Hr Tdsy) 1 patch TD Q3D [facility] Stop: 09/10/24 10:59 Last Admin: 08/27/24 12:06 Dose: 1 patch Fluticasone Propionate (Fluticasone Propionate Na Spr 16 Gm Btl) 2 sprays NA QAM [facility] Stop: 09/21/24 08:59 Last Admin: 08/27/24 09:16 Dose: 2 sprays Formoterol Fumarate (Formoterol 20 Mcg/2 Ml Vial) 20 mcg INH BIDR [facility] Stop: 09/21/24 06:59 Last Admin: 08/27/24 07:02 Dose: 20 mcg Gabapentin (Gabapentin 300 Mg Cap) 300 mg PO TID [facility] Stop: 09/21/24 08:59 Last Admin: 08/27/24 09:17 Dose: 300 mg Guaifenesin (Guaifenesin 600 Mg Tabcr) 600 mg PO BID [facility] Stop: 09/21/24 08:59 Last Admin: 08/27/24 09:17 Dose: 600 mg Heparin Sodium (Porcine) (Heparin Sod 5,000 Unit/0.5 Ml Vial) 5,000 units SQ Q12 [facility] Stop: 09/23/24 20:59 Last Admin: 08/27/24 09:19 Dose: 5,000 units Daptomycin 400 mg/ Syringe 8 mls @ 4 mls/min IV Q24H [facility]; Protocol Stop: 09/04/24 20:59 Last Admin: 08/26/24 22:12 Dose: 4 mls/min Loratadine (Loratadine 10 Mg Tab) 10 mg PO QAM [facility] Stop: 09/21/24 08:59 Last Admin: 08/27/24 09:17 Dose: 10 mg Miscellaneous (Fentanyl Patch Remove & Waste) 1 each N/A Q3D [facility] Stop: 09/26/24 10:59 Last Admin: 08/27/24 12:07 Dose: Not Given Miscellaneous (Check Fentanyl Patch Placement) 1 each N/A QS [facility] Stop: 09/26/24 15:59 Ondansetron HCl (Ondansetron Inj 2 Mg/Ml 2 Ml Vial) 4 mg IV Q6H PRN PRN Reason: Nausea Stop: 09/21/24 00:51 Last Admin: 08/24/24 10:40 Dose: 4 mg Oxycodone HCl (Oxycodone Hcl Ir 5 Mg Tab (Immediate Release)) 5 mg PO Q4H PRN PRN Reason: Pain 5-10 Stop: 09/05/24 02:26 Last Admin: 08/27/24 13:40 Dose: 5 mg Pantoprazole Sodium (Pantoprazole 40 Mg Tab) 40 mg PO BID [facility] Stop: 09/21/24 08:59 Last Admin: 08/27/24 09:18 Dose: 40 mg Polyethylene Glycol (Polyethylene (Miralax) 17 Gm Pack) 17 gm PO DAILY PRN PRN Reason: Constipation Stop: 09/21/24 16:10 Last Admin: 08/27/24 09:17 Dose: 17 gm Prednisone (Prednisone 10 Mg Tablet) 10 mg PO DAILY [facility] Stop: 09/21/24 08:59 Last Admin: 08/27/24 09:18 Dose: 10 mg
--- NOTE | 2024-08-27 12:53 | Discharge Summary ---
Discharge Summary Date of Service August 27, 2024 Principal Dx & Hospital Course #1 = Principal Diagnosis (1) Sepsis: 79 years old female with history of DNR/DNI @ [facility] ([place], [place]), hyperlipidemia, HTN, vancomycin-resistant Enterococcus faecium-associated UTI (as noted on 05/12/2024 urine culture), and former tobacco abuse with subsequent development of chronic hypoxic respiratory failure due to end-stage COPD on 3 liters/minute O2 via nasal cannula [id number] @ [facility] ([place]), who was admitted to the inpatient hospitalist service @ [facility] on 08/21/2024 with the following diagnoses: 1. Sepsis of unclear etiology with coincident MRSA bacteremia (as noted on 08/21/2024, 11:04pm blood culture #2) of unclear etiology, R/O acute alatna valve endocarditis. 2. Acute toxic metabolic encephalopathy of unclear etiology with coincident MRSA bacteremia, R/O daptomycin-mediated myopathy versus acute lumbar vertebral osteomyelitis, given patient's complaints of intractable lumbago on 08/25/2024, unrelieved by oxycodone IR 5mg PO q4 prn pain on 08/25/2024. To address #1, patient was started on cefepime 2g IV x1 dose (08/21/2024, 9:58pm) and daptomycin 300mg IV daily (at 6mg daptomycin per kg of body weight per 24 hours, and a body weight of 47.9 kg) (day #1 on 08/21/2024, 9:56pm), followed by daptomycin 400mg IV daily (at 8mg daptomycin per kg of body weight per 24 hours, and a body weight of 47.9 kg) (day #1 on 08/25/2024, 9:00pm). Patient remains afebrile with no obvious source/etiology of MRSA bacteremia (e.g., no skin/soft tissue wound(s), no gingivostomatitis, no UTI, and no CAP). Moreover, repeat blood culture (08/24/2024, 9:28am) remains negative. Hence, patient will continue and complete a total of 14 days of daptomycin monotherapy (08/25/2024, 9:00pm through 09/07/2024, 9:00pm) at [facility] ([place], [place]). To this end, I ordered PICC line and a printed Rx for daptomycin 400mg IV daily (at 8mg daptomycin per kg of body weight per 24 hours, and a body weight of 47.9 kg), #12 doses, 08/27/2024, 9 :00pm through 09/07/2024, 9:00pm) prior to hospital discharge back to [facility] ([place]) on 08/27/2024. Of final note, patient has no stigmata on physical exam (e.g., Menchaca spots, Janeway lesions, Osler nodes, splinter hemorrhages) to suggest (sub)acute alatna valve endocarditis; moreover, patient underwent formal CARDS Service evaluation with Dr. Leslee Ching, who concurred that the clinical suspicion for acute alatna valve endocarditis in this patient with MRSA bacteremia of unclear etiology, remains low. Hence, no RICHARDSON was ordered/warranted. To address #2, patient underwent CK level testing (normal at 103 U/L on 08/25/2024, 8:14pm) to address patient's complaints of intractable lumbago on 08/25/2024, and recognizing that a common side effect of daptomycin is myopathy/neuropathy. In addition, patient underwent ESR/CRP level testing (normal at 19 mm/hr and nominally elevated at 0.81 mg/dL, respectively, on 08/25/2024, 8:14pm) to address patient's complaints of intractable lumbago on 08/25/2024, and recognizing that there may be an infectious etiology for patient's intractable lumbago. cf., ESR levels are frequently in excess of 100 mm/hr in cases of acute vertebral osteomyelitis. Hence, my suspicion for daptomycin-mediated myopathy/neuropathy and vertebral osteomyelitis remains low. Of final note, patient did NOT receive her home-scheduled rosuvastatin 20mg PO daily as the potential for this patient to develop acute rhabdomyolysis with concomitant daptomycin administration is very high. Hence, patient should NOT resume her home-scheduled rosuvastatin 20mg PO daily until 09/08/2024, on which date, patient will no longer be receiving daptomycin 400mg IV daily. (2) Myocardial infarction type 2: Etiology of troponin elevations is most likely due to demand ischemia, which in turn, is due to (a) sepsis of unclear etiology, and/or (b) chronic hypoxic respiratory failure due to end-stage COPD on 3 liters/minute O2 via nasal cannula [id number] @ [facility] ([place]). cf., Troponin #1 555.1 pg/mL (08/22/2024, 9:33am). cf., Troponin #2 439.4 pg/mL (08/24/2024, 7:22am). cf., EKG #1 (08/21/2024, 9:56pm): sinus tach @ 109, VT 148, QTC 465, TWI in V2, V3; no acute ST elevations/depressions (by my review). cf., EKG #2 (08/22/2024, 8:23am): NSR @ 86, VT 152, QTC 471, TWI in V2; no acute ST elevations/depressions (by my review). cf., TTE (08/24/2024, 8:21am): 1. LV systolic function normal. 2. No large valvular vegetations, but small vegetations specifically on the MV could not be definitively excluded. 3. LA size normal. 4. No pericardial effusion. (as per CARDS Dr. Jadon Lebron). The absence of LV wall motion abnormalities on TTE (08/24/2024, 8:21am) makes acute NSTEMI unlikely in this patient. Hence, this patient does not receive heparin infusion or lovenox 1mg/kg SQ q12. Hence, I opted to observe this laboratory anomaly of elevated troponins while patient remains in [facility]. (3) COPD (chronic obstructive pulmonary disease): Patient suffers from chronic hypoxic respiratory failure due to end-stage COPD on 3 liters/minute O2 via nasal cannula [id number] @ [facility] ([place], [place]). Patient did receive 6 liters/minute O2 via nasal cannula @ [facility] Tele bed #234-1 on 08/25/2024. In comparison, patient utilized 3 liters/minute O2 via nasal cannula @ [facility] Tele bed #[id number] on 08/24/2024. Why, one may ask, did this patient require a higher level of oxygen support on 08/25/2024, than in the previous 24 hours? Patient did NOT complain of any coughing, wheezing, pleurisy, chest pain, fevers, chills, or diaphoresis on 08/25/2024. While patient received heparin 5000 units SQ q12 for pharmacologic DVT prophylaxis, I could not exclude the possibility of acute PE while patient receives heparin 5000 units SQ q12. Hence, I ordered D-dimer (normal at 340 ug/L on 08/25/2024, 9:35pm), and so, my clinical index of suspicion for acute PE remains low. Subsequently, patient was titrated back down to her home-scheduled 3 liters/minute O2 via nasal cannula on 08/26/2024, 11:11am, and remains on 3 liters/minute O2 via nasal cannula on hospital discharge date 08/27/2024, 1:0 7pm. Hence, patient was discharged back to [facility] ([place]) on 08/27/2024 on her home-scheduled 3 liters/minute O2 via nasal cannula. In addition, patient will resume on hospital discharge back to [facility] ([place]) on 08/27/2024, her home- scheduled: a. albuterol MDI 90ug/puff, 2 puffs PO q12 prn SOB/wheeze. b. albuterol 2.5mg in 3mL NS neb q2 prn SOB/wheeze. c. arformoterol 15ug/2mL neb bid. d. duonebs (albuterol 2.5mg / ipratropium 0.5mg in 3 mL NS neb) qid [id number]. (4) CAD (coronary artery disease): Patient received secondary prophylaxis against CAD (e.g., minimal non- obstructive CAD by left heart cath (2007)) utilizing patient's homescheduled clopidogrel 75mg PO qam while in [facility]. Patient will continue this home- scheduled medication on hospital discharge back to [facility] ([place]) on 08/27/2024. Patient did NOT receive, however, her home-scheduled rosuvastatin 20mg PO daily as the potential for this patient to develop acute rhabdomyolysis with concomitant daptomycin administration is very high. Hence, patient should NOT resume her home- scheduled rosuvastatin 20mg PO daily until 09/08/2024, on which date, patient will no longer be receiving daptomycin 400mg IV daily. (5) PAD (peripheral artery disease): Patient received secondary prophylaxis against PAD (e.g., s/p bilateral carotid endarterectomy; s/p right common iliac artery stent and right external iliac artery angioplasty on 06/22/2014, Dr. Bayron Rodriguez, [facility] utilizing patient's homescheduled clopidogrel 75mg PO qam while in [facility]. Patient will continue this home-scheduled medication on hospital discharge back to [facility] ([place]) on 08/27/2024. Patient did NOT receive, however, her home-scheduled rosuvastatin 20mg PO daily as the potential for this patient to develop acute rhabdomyolysis with concomitant daptomycin administration is very high. Hence, patient should NOT resume her home-scheduled rosuvastatin 20mg PO daily until 09/08/2024, on which date, patient will no longer be receiving daptomycin 400mg IV daily. (6) CVD (cerebrovascular disease): Patient received secondary prophylaxis against CVD (e.g., acute non-hemorrhagic, ischemic CVA in this right-hand dominant patient) utilizing patient's homescheduled clopidogrel 75mg PO qam while in [facility]. Patient will continue this home-scheduled medication on hospital discharge back to [facility] ([place]) on 08/27/2024. Patient did NOT receive, however, her home-scheduled rosuvastatin 20mg PO daily as the potential for this patient to develop acute rhabdomyolysis with concomitant daptomycin administration is very high. Hence, patient should NOT resume her home-scheduled rosuvastatin 20mg PO daily until 09/08/2024, on which date, patient will no longer be receiving daptomycin 400mg IV daily. (7) Pain management: Patient received her home-scheduled fentanyl patch 25ug/hr transdermally applied to the back q72h while in [facility]. Patient will continue this home-scheduled medication on hospital discharge back to [facility] ([place]) on 08/27/2024. Plan Code status, DNR/DNI @ [facility] ([place]). Condition of patient remains fair. There were no adverse events noted with this hospitalization. Patient does not suffer from either acute alatna valve endocarditis, daptomycin-mediated myopathy, or acute lumbar vertebral osteomyelitis. Patient was subsequently discharged back to [facility] ([place], [place]) for long-term care on 08/27/2024. Patient will also follow up with the Senior Genetic Counselor @ [facility] ([place]) within 3-5 days of hospital discharge. Of final note, I spoke with the patient at the bedside in [facility] Telemetry bed #234-1, today, 08/27/2024, and the patient concurs with assessment and plan as described above. Discharge time, 35 minutes. Of this time period, 17 minutes were spent in coordinating patient's discharge. Admission HPI Per Admitting Provider Ana Nichols is an 79 years old female with history of DNR/DNI @ [facility] ([place]), chronic hypoxic respiratory failure secondary to severe COPD on supplemental O2 at baseline, CAD, HTN, HLP and prior CVA presenting from [facility] with worsening confusion. Patient was hypoxic upon arrival of EMS with saturation in the 60's - not wearing her supplemental O2. Patient was hypotensive with elevated temperature and HR on arrival. She had a Fentanyl patch in place which was removed. Patient given IVF in the ER with improvement in mental status. Able to answer some questions and follow commands. In the ER, patient was hypotensive with BP 86/56, EK=442, T=37.6 ER Course: NSS x 1L Tylenol 650mg VT Cefepime 2gm Daptomycin 300mg NSS x 500mL Discharge Exam General: comfortable, coherent, cooperative. Wide awake and alert. Not confused, lethargic, or obtunded. Patient speaks in complete, fluent, and articulate sentences without pause, interruption, cough, or wheeze on 3 liters/minute O2 via nasal cannula on 08/27/2024. cf., 6 liters/minute O2 via nasal cannula on 08/25/2024. HEENT: NC/AT. EOMI. PERRL. No Menchaca spots, nystagmus, gaze paresis, anisocoria, miosis, chemosis, mydriasis, hyphema, scleral injection, conjunctivitis, or pterygium. No otorrhea or rhinorrhea. No pharyngeal dis charge or erythema. Neck: Supple, no stridor, bruit, goiter, JVD, or HJR. Chest: Symmetric rise and fall with respirations. Lungs: CTA/P. No audible expiratory wheeze, egophony, pectoriloquy, increase in tactile fremitus, or flatness/dullness to percussion at the bases. Heart: RRR, S1 and S2 noted. No S3 or S4 summation gallop. Grade II/ early systolic murmur @ LLSB, without radiation to the carotids, axilla, or back, and which remains invariant in regards to the respiratory cycle. Abdomen: Soft, NT, ND, no organomegaly. Bowel sounds auscultated in all 4 quadrants. Extremities: No clubbing, cyanosis, or edema. 2+ pedal pulses bilaterally. Skin: No decubitus ulcer, exanthem, or enanthem. No Janeway lesions, no Osler nodes, no splinter hemorrhages. Neurology: Alert and oriented in regards to person, place, time, or situation. 5/5 motor strength in all 4 extremities, both proximally and distally. Urology: No ta catheter. No urethral discharge. Discharge Plan Discharge Items Patient Disposition: Transfer Long Term Fac Reason For Visit: HYPOTENSION, ENCEPALPOATHY Discharge Diagnosis: MRSA bacteremia (as noted on 08/21/2024, 11:04pm blood culture #2). Activity: Resume your previous activity Non-emergency contact: Primary Care Provider Call non-emergency contact if: you have any medication questions Follow-up/Referrals: [facility] [Primary Care Provider] - Diet: Regular Addtl Attending Provider Instructions: Follow repeat blood culture (08/24/2024, 9:28am) to completion; negative as of 08/27/2024, 12:28pm). Pending Studies at Discharge: Yes Studies:: Follow repeat blood culture (08/24/2024, 9:28am) to completion; negative as of 08/27/2024, 12:28pm). Stand-Alone Forms: My [facility] [employer] Skilled Items Patient informed of condition?: Yes DNR: Yes Discharge Level of Care: Skilled Communicable Disease: No Discharge Prognosis: Stable Lines: PICC Urinary Catheter: No Medications and DC Order Prescriptions: New daptomycin 500 mg recon soln 400 mg IV DAILY Rx Instructions: administer over 30 mins, starting on 08/27/2024, 9:00pm and ending on 09/07/2024, 9:00pm Continued albuterol sulfate 2.5 mg /3 mL (0.083 %) solution for nebulization 2.5 mg continuous nebulization Q2H PRN (Reason: COPD) clonazepam 0.5 mg tablet 0.5 mg PO AMHS clopidogrel [Plavix] 75 mg Tablet 75 mg PO QAM famotidine 20 mg Tablet 20 mg PO BID gabapentin 300 mg capsule 300 mg PO TID buspirone 7.5 mg Tablet 7.5 mg PO BID budesonide 0.5 mg/2 mL suspension for nebulization 0.5 mg inhalation BID albuterol sulfate 90 mcg/actuation HFA aerosol inhaler 2 puff INHALATION Q12H PRN (Reason: COPD) fluticasone propionate 50 mcg/actuation spray,suspension 2 spray INTRANASAL QAM Afrin (oxymetazoline) 0.05 % Mist 2 spray INTRANASAL Q12H PRN (Reason: Epistaxis) Saccharomyces boulardii [Florastor] 250 mg Capsule 250 mg PO BID Rx Instructions: am,hs escitalopram oxalate 5 mg Tablet 5 mg PO QAM arformoterol [Brovana] 15 mcg/2 mL Solution For Nebulization 2 ml INHALATION BID acetaminophen [Tylenol] 325 mg Tablet 650 mg PO Q6H MDD 3g/24hr PRN (Reason: Fever Or Pain) ipratropium-albuterol 0.5 mg-3 mg(2.5 mg base)/3 mL Solution For Nebulization 3 ml INHALATION QID pantoprazole 40 mg Tablet,Delayed Release (Dr/Ec) 40 mg PO BID loratadine 10 mg Tablet 10 mg PO QAM oxycodone 5 mg Tablet 5 mg PO Q4H PRN (Reason: Pain 5-10 ) diclofenac sodium 1 % Gel See Rx Instructions .ROUTE .COMPLEX Rx Instructions: Apply 2g to the shoulders and 4g to the right thigh. Ok to use despite allergy <--- On pt's MAR prednisone 10 mg tablet 10 mg PO DAILY magnesium hydroxide [Milk of Magnesia] 400 mg/5 mL Suspension 30 ml PO DAILY PRN (Reason: Constipation) Rx Instructions: If no BM for 3 days administer on (7-3 shift) bisacodyl [Dulcolax (bisacodyl)] 10 mg Suppository 10 mg VT DAILY PRN (Reason: Constipation) Rx Instructions: Give on day 3 (3-11 shift) if no BM after MOM fentanyl 25 mcg/hr patch 72 hour 25 mcg transdermal Q72H cholecalciferol (vitamin D3) [Vitamin D3] 50 mcg (2,000 unit) Tablet 50 mcg PO DAILY Discontinued ascorbic acid (vitamin C) [Vitamin C] 1,000 mg Tablet 1 g PO QAM loperamide [Imodium A-D] 2 mg Tablet 2 mg PO Q2H PRN (Reason: Diarrhea) Rx Instructions: administer after each loose stool until symptoms controlled; do not exceed 8 mg per 24 hrs cyanocobalamin (vitamin B-12) [Vitamin B-12] 500 mcg Tablet 500 mcg PO QAM guaifenesin [Mucinex] 600 mg Tablet Extended Release 12hr 600 mg PO BID nystatin 100,000 unit/mL suspension 5 ml PO QID Rx Instructions: swish & swallow phenazopyridine [Pyridium] 200 mg Tablet 200 mg PO Q8H PRN (Reason: Bladder Spasms) ondansetron HCl 4 mg Tablet 4 mg PO Q6H PRN (Reason: Nausea) methenamine hippurate 1 gram tablet 1 g PO BID rosuvastatin 20 mg Tablet 20 mg PO HS cholecalciferol (vitamin D3) 1,250 mcg (50,000 unit) Capsule 1,250 mcg PO WK Rx Instructions: Start Date 03/18/24 - End Date 05/13/24 - Only for 8 weeks on Saturdays methylprednisolone [Medrol (Tyree)] 4 mg tablets,dose pack See Rx Instructions .ROUTE .COMPLEX Qty: 21 0RF Rx Instructions: As Per Packaging Admission Data Admit Date/Time: 08/21/24 23:43 Attending Provider: Lokesh Stevens Admit Provider: Cassy Martínez Primary Care Provider: [facility] Other Providers: Cassy Martínez; Jaquelin Barillas; Terri Dong; Fatoumata Vargas; Claudia Casper; Noel Reina; Caio Burgos; Samson Cummins; Jamie Chiang; Eri Chaing; Chalo Galvan; Jaye Toro; Jose Ramon; Seth Carrasco; Osvaldo Gutierres; Hyacinth Rothman; Sebas Vicente; Kalyani Vicente; Rigoberto Lilly; Brandee Morgan; Dov Dobson; Iram Antunez; Johnna Hoffman; Reyes Lisa; Cassy Powers; Sarai Arshad; Annie Henson; Nataliya Lane; Daryl Lane V; Russel Alvarez; Terri Higgins; Lonnie Bryan; Jill Smith; Daryl Randhawa; Ho Rothman; Ritesh Pacheco; Ida Oconnor; Xin Chaudhary; Daryl Suárez; Ron Damian; Elizabeth Tapia; Anibal Cooney; Yeni Taveras; Marguerite Zhao; Delbert Singh; Brian Messina; Romana Marie; Amy Batista.; Mitchell Llamas; Louie Sow; Jadon Hernandez; Noel Sharpe Jr; Tierra Garrison; Crystal Verma A.; Vernell Ramirez.; Reyes Allison; Jamie Duckworth; Cristina Sims SRadha; Crystal Mart A.; Phillip Veloz; Jose D Hernandez; Jayson Olson; Henrique Rolle; Bessy Silva; Griselda Whittington; Ally Rubio; Latonia Ortiz; Claribel Garcia; Patrizia York; Aleksandr Lindsay Jr; Anjana Mayberry; Cassy Vences; Luis M Wood; Jadon Lebron Hospital Stay Data Consultations 08/21/24 23:34 ED Decision to Admit Stat 08/26/24 10:00 Consult Anesthesiology Routine 08/26/24 13:32 Consult Cardiology Routine Diagnostic Imagining Performed 08/21/24 21:53 CT Abd and Pelvis [CT abd pelvis IV con only] Stat CT angio chest PE protocol Stat CT head/brain wo con Stat Pending Results Patient Have Any Pending Studies at Discharge: Yes Discharge Instructions Given to Patient (Per Discharging Provider) Follow repeat blood culture (08/24/2024, 9:28am) to completion; negative as of 08/27/2024, 12:28pm). Total Time Total Time Spent Total Time Spent (In Minutes): 35 minutes Coding Level of Care Code 09988 INP/OBS DISCH >30 MIN Diagnoses Sepsis A41.9 Myocardial infarction type 2 I21.A1 Chronic obstructive pulmonary disease, unspecified COPD type J44.9 COPD type: unspecified COPD CAD (coronary artery disease) I25.10 PAD (peripheral artery disease) I73.9 CVD (cerebrovascular disease) I67.9 Pain management R52
[2024-08-27] MEDS ORDERED: DICLOFENAC SOD 1% GEL 100 GM TUBE EXT PRN (13:47)
[2024-08-27] MEDS: CHECK fentaNYL PATCH PLACEMENT SCH (17:04)
--- NOTE | 2024-08-28 11:12 | Cardiology Progress Note ---
Date of Service August 28, 2024 Assessment & Plan (1) Staphylococcus aureus bacteremia: (2) Sepsis: (3) PAD (peripheral artery disease): (4) AMS (altered mental status): (5) COPD (chronic obstructive pulmonary disease): Plan Patient is not a strong candidate for transesophageal echocardiogram due to severe oxygen dependent COPD, and frailty. She would not be a candidate for invasive cardiac procedures even if endocarditis was discovered. Recommend continued conservative medical management with antibiotics for at least 4 weeks. Repeat blood culture as outpatient approximately 1 week after completion of antibiotic therapy. Further evaluation of possible lumbar vertebral osteomyelitis as per hospitalist service. Admission and Anticipated Discharge Date Admission Date: August 21, 2024 Subjective Patient seen examined at the bedside. Awakens to verbal stimuli however somewhat uncooperative. Answers some questions. Denies chest pain however notes lower abdominal discomfort. No orthopnea or PND. Cardiology consultation requested over the weekend due to MRSA bacteremia. 2 transthoracic echocardiograms were performed without evidence of large vegetation. Preserved LV systolic function. Patient carries a history of nonobstructive coronary disease per cardiac catheterization 2007, peripheral vascular disease, carotid vascular disease, and severe oxygen dependent COPD. Followed by the undersigned in the [facility] until 2019. She is a currently a resident of [facility]. Review of Systems Review of Systems: All systems reviewed & are unremarkable except as noted in Subjective Physical Exam Constitutional: well developed and + ill appearing; no acute distress Respiratory: no labored breathing and no retractions Auscultation: + diminished lung sounds (Bilateral); no rhonchi and no wheezes Cardiovascular: Rate/Rhythm: regular rate and regular rhythm Heart Sounds: normal S1 and normal S2 Vessels: no JVD Extremities: no edema Gastrointestinal (Abdomen): Inspection/Auscultation: abdomen not distended Percussion/Palpation: abdomen nontender, no guarding and abdomen not rigid Neurologic: moves all extremities Results & Data Vital Signs (Past 12 Hours) Vital Signs Temp Pulse Pulse Resp BP BP Pulse Ox 08/28/24 10:31 73 15 96 08/28/24 10:26 36.8 C 79 94 H 16 126/63 95 08/28/24 08:30 36.8 C 79 16 96/60 L 95 08/28/24 07:15 08/28/24 07:09 94 H 20 91 O2 Del Method O2 Flow Rate 08/28/24 10:31 Nasal Cannula 3 08/28/24 10:26 08/28/24 08:30 Nasal Cannula 3 08/28/24 07:15 Nasal Cannula 3 08/28/24 07:09 Nasal Cannula 3 Laboratory Results Intake and Output 08/27/24 08/28/24 08/28/24 22:59 06:59 14:59 Intake Total 140 / 140 Balance 140 / 140 Intake: Oral 140 / 140 Other: Other Intake Source breakfast # Unmeasured Voids 1 1 1 Weight 47.9 kg Patient Weight 08/29/24 06:59 Weight 47.9 kg (5) COPD (chronic obstructive pulmonary disease) COPD type: unspecified COPD Qualified Code(s): J44.9 - Chronic obstructive pulmonary disease, unspecified
--- NOTE | 2024-08-28 13:01 | Discharge Summary ---
Discharge Summary Date of Service August 28, 2024 Principal Dx & Hospital Course #1 = Principal Diagnosis (1) Sepsis: This is an 79yo female with history of severe COPD, Chronic hypoxemic respiratory failure on 3L O2 at baseline, CAD, HTN and HLP presenting with metabolic encephalopathy Met criteria for sepsis from urinary source present on admission with Tm=38.3, LW=492. Patient with history of recurrent UTIs - on Methenamine for suppression. Prior urine cultures with VRE. blood cultures preliminary Gr + concern for MRSA -Follow urine cultures and blood cultures, urine is contaminated, echo without large vegetation, repeat blood cx 08/24/24 negative to date -Continue Daptomycin ( hold Crestor) and transition to po clindamycin as per sensitivities to complete 4 weeks course keep watch on back pain and have low threshold if becomes ill to image -Tylenol PRN (2) Myocardial infarction type 2: Patient with elevated troponin, no report of chest pain. No acute ischemic changes on EKG. Likely Type II NSTEMI in setting of hypoxia and sepsis. -troponin to the 600's concern for NSTEMI< on heparin gtt x 48 hours (3) COPD (chronic obstructive pulmonary disease): Patient with chronic hypoxic respiratory failure on 3L home oxygen. Presently with adequate oxygenation on Oxymask 1L/min. Reduced air entry on auscultation -Continue supplemental O2 - goal saturation 99-92% -Continue Albuterol/Ipratopium scheduled and PRN -Budesonide and Formoterol -continue PO prednisone -Continue Guaifenesin (4) CAD (coronary artery disease): Patient with elevated troponin. No STEMI on EKG. No report of chest pain -Continue Plavix -Holding Crestor while on daptomycin Plan goals of care discussion had with daughter on 08/24/24, is DNR but not ready at this time to enter palliative care mode. DNR/DNI Notes For Next Care Provider transition to po clinda after dapto for one month course keep watch for back pain, if re occurrence of pain and fever Admission HPI Per Admitting Provider Ana Nichols is an 79 years old female with history of DNR/DNI @ [facility] ([place], [place]), chronic hypoxic respiratory failure secondary to severe COPD on supplemental O2 at baseline, CAD, HTN, HLP and prior CVA presenting from [facility] with worsening confusion. Patient was hypoxic upon arrival of EMS with saturation in the 60's - not wearing her supplemental O2. Patient was hypotensive with elevated temperature and HR on arrival. She had a Fentanyl patch in place which was removed. Patient given IVF in the ER with improvement in mental status. Able to answer some questions and follow commands. In the ER, patient was hypotensive with BP 86/56, ZW=106, T=37.6 ER Course: NSS x 1L Tylenol 650mg OK Cefepime 2gm Daptomycin 300mg NSS x 500mL Discharge Exam pt is confused as is her baseline needs to have oxygen use reinforced lungs diminished but clear no compliaints of back pain Discharge Plan Discharge Items Patient Disposition: Transfer Alf Fac Reason For Visit: HYPOTENSION, ENCEPALPOATHY Discharge Diagnosis: MRSA bacteremia (as noted on 08/21/2024, 11:04pm blood culture #2). Activity: Resume your previous activity Non-emergency contact: Primary Care Provider Call non-emergency contact if: you have any medication questions Follow-up/Referrals: [facility] [Primary Care Provider] - Diet: Regular Addtl Attending Provider Instructions: Follow repeat blood culture (08/24/2024, 9:28am) to completion; negative as of 08/27/2024, 12:28pm). Pending Studies at Discharge: Yes Studies:: repeat blood culture (08/24/2024, negative as of 08/28/2024, Stand-Alone Forms: My [facility] Skilled Items Patient informed of condition?: Yes DNR: Yes Discharge Level of Care: Skilled Communicable Disease: No Discharge Prognosis: Stable Lines: PICC Urinary Catheter: No Medications and DC Order Prescriptions: New daptomycin 500 mg recon soln 300 mg IV DAILY 10 Days Rx Instructions: administer over 30 mins clindamycin HCl 300 mg capsule 300 mg PO QID Qty: 56 0RF (DME) Oxygen Home Liters Per Minute See Rx Instructions .ROUTE Qty: 3 0RF Rx Instructions: at all times nc Continued albuterol sulfate 2.5 mg /3 mL (0.083 %) solution for nebulization 2.5 mg continuous nebulization Q2H PRN (Reason: COPD) clonazepam 0.5 mg tablet 0.5 mg PO [facility]HS clopidogrel [Plavix] 75 mg Tablet 75 mg PO QAM famotidine 20 mg Tablet 20 mg PO BID gabapentin 300 mg capsule 300 mg PO TID buspirone 7.5 mg Tablet 7.5 mg PO BID budesonide 0.5 mg/2 mL suspension for nebulization 0.5 mg inhalation BID albuterol sulfate 90 mcg/actuation HFA aerosol inhaler 2 puff INHALATION Q12H PRN (Reason: COPD) fluticasone propionate 50 mcg/actuation spray,suspension 2 spray INTRANASAL QAM Afrin (oxymetazoline) 0.05 % Mist 2 spray INTRANASAL Q12H PRN (Reason: Epistaxis) Saccharomyces boulardii [Florastor] 250 mg Capsule 250 mg PO BID Rx Instructions: am,hs escitalopram oxalate 5 mg Tablet 5 mg PO QAM arformoterol [Brovana] 15 mcg/2 mL Solution For Nebulization 2 ml INHALATION BID acetaminophen [Tylenol] 325 mg Tablet 650 mg PO Q6H MDD 3g/24hr PRN (Reason: Fever Or Pain) ipratropium-albuterol 0.5 mg-3 mg(2.5 mg base)/3 mL Solution For Nebulization 3 ml INHALATION QID pantoprazole 40 mg Tablet,Delayed Release (Dr/Ec) 40 mg PO BID loratadine 10 mg Tablet 10 mg PO QAM oxycodone 5 mg Tablet 5 mg PO Q4H PRN (Reason: Pain 5-10 ) diclofenac sodium 1 % Gel See Rx Instructions .ROUTE .COMPLEX Rx Instructions: Apply 2g to the shoulders and 4g to the right thigh. Ok to use despite allergy <--- On pt's MAR prednisone 10 mg tablet 10 mg PO DAILY magnesium hydroxide [Milk of Magnesia] 400 mg/5 mL Suspension 30 ml PO DAILY PRN (Reason: Constipation) Rx Instructions: If no BM for 3 days administer on (7-3 shift) bisacodyl [Dulcolax (bisacodyl)] 10 mg Suppository 10 mg OK DAILY PRN (Reason: Constipation) Rx Instructions: Give on day 3 (3-11 shift) if no BM after MOM fentanyl 25 mcg/hr patch 72 hour 25 mcg transdermal Q72H cholecalciferol (vitamin D3) [Vitamin D3] 50 mcg (2,000 unit) Tablet 50 mcg PO DAILY Discontinued ascorbic acid (vitamin C) [Vitamin C] 1,000 mg Tablet 1 g PO QAM loperamide [Imodium A-D] 2 mg Tablet 2 mg PO Q2H PRN (Reason: Diarrhea) Rx Instructions: administer after each loose stool until symptoms controlled; do not exceed 8 mg per 24 hrs cyanocobalamin (vitamin B-12) [Vitamin B-12] 500 mcg Tablet 500 mcg PO QAM guaifenesin [Mucinex] 600 mg Tablet Extended Release 12hr 600 mg PO BID nystatin 100,000 unit/mL suspension 5 ml PO QID Rx Instructions: swish & swallow phenazopyridine [Pyridium] 200 mg Tablet 200 mg PO Q8H PRN (Reason: Bladder Spasms) ondansetron HCl 4 mg Tablet 4 mg PO Q6H PRN (Reason: Nausea) methenamine hippurate 1 gram tablet 1 g PO BID rosuvastatin 20 mg Tablet 20 mg PO HS cholecalciferol (vitamin D3) 1,250 mcg (50,000 unit) Capsule 1,250 mcg PO WK Rx Instructions: Start Date 03/18/24 - End Date 05/13/24 - Only for 8 weeks on Saturdays methylprednisolone [Medrol (Tyree)] 4 mg tablets,dose pack See Rx Instructions .ROUTE .COMPLEX Qty: 21 0RF Rx Instructions: As Per Packaging Discharge Orders: Discharge Order (Routine); Ordered 08/28/24 Ordered By: Darinel Wright Admission Data Admit Date/Time: 08/21/24 23:43 Attending Provider: Darinel Wright Admit Provider: Cassy Martínez Primary Care Provider: [facility] Other Providers: Cassy Martínez; Jaquelin Barillas; Terri Dong; Fatoumata Vargas; Claudia Casper; Noel Reina; Caio Burgos; Samson Cummins; Jamie Chiang; Eri Chiang; Chalo Galvan; Jaye Toro; Jose Ramon; Seth Cararsco; Osvaldo Gutierres; Hyacinth Rothman; Sebas Vicente; Kalyani Vicente; Rigoberto Lilly; Brandee Morgan; Dov Dobson; Iram Antunez; Johnna Hoffman; Reyes Lisa; Cassy Powers; Sarai Arshad; Annie Henson; Nataliya Lane; Daryl Lane V; Russel Alvarez; Terri Higgins; Lonnie Bryan; Jill Larkin; Daryl Randhawa; Ho Rothman; Ritesh Pacheco; Ida Oconnor; Xin Chaudhary; Daryl Suárez; Ron Damian; Elizabeth Tapia; Anibal Cooney; Yeni Taveras; Marguerite Zhao; Delbert Singh; Brian Messina; Romana Marie; Amy Batista; Mitchell Llamas; Louie Sow; Jadon Hernandez; Noel Sharep Jr; Tierra Garrison; Crystal Verma; Vernell Ramirez; Reyes Allison; Jamie Duckworth; Cristina Sims; Crystal Mart; Phillip Veloz; Jose D Hernandez; Jayson Olson; Henrique Rolle; Bessy Silva; Griselda Whittington; Ally Tapia; Latonia Ortiz; Claribel Garcia; Patrizia York; Aleksandr Lindsay Jr; Anjana Mayberry; Cassy Vences; Lusi M Wood; Darinel Mcdonald Other Interventions: Discharge Summary Assessment (RN) Last Done: 08/28/24 10:26 Hospital Stay Data Consultations 08/21/24 23:34 ED Decision to Admit Stat 08/26/24 10:00 Consult Anesthesiology Routine 08/26/24 13:32 Consult Cardiology Routine Diagnostic Imagining Performed 08/21/24 21:53 CT Abd and Pelvis [CT abd pelvis IV con only] Stat CT angio chest PE protocol Stat CT head/brain wo con Stat Pending Results Patient Have Any Pending Studies at Discharge: Yes Discharge Instructions Given to Patient (Per Discharging Provider) Follow repeat blood culture (08/24/2024, 9:28am) to completion; negative as of 08/27/2024, 12:28pm). Total Time Total Time Spent Total Time Spent (In Minutes): It required greater than 30 minutes to prepare this patient for discharge. Coding Level of Care Code 86521 INP/OBS DISCH >30 MIN Diagnoses Sepsis A41.9 Myocardial infarction type 2 I21.A1 Chronic obstructive pulmonary disease, unspecified COPD type J44.9 COPD type: unspecified COPD CAD (coronary artery disease) I25.10
[2024-08-28 13:48] VITALS: BP 86/41; PULSE 81; RESP 17; TEMP 98.4; O2SAT 93
== END 2024-08-28 14:13 | DRG 871 ==
LOC: ED 21:40 → 2S 23:43 → SUATTDRO 23:43 → 2S 08-22 00:32 → 3E 08-27 18:41